=== PATIENT | female | born 1950 | race Caucasian/White ===

== ENCOUNTER → 2016-12-31 | Day surgery (SDC) | payer MEDICARE ==
[~2016-12-31] VITALS: Ht 154.9 cm; Wt 77.1 kg
[~2016-12-31] MED LIST: ACETAMINOPHEN 325 MG TAB PO PRN; ASPI81TA85 PO; ATOR1TAB19 PO; AcetaZOLAMIDE 500 MG ER CAP PO ONE; BENA25TA9 PO; BSS with VANC/TOB/EPI for EYE CASES IR ONE; CYCL5TA PO; CYCLOPENTOLATE 2% OPHTH SOLN OD ONE; DIPH50TA4 PO; HEALON DUET (HEALON 10MG/ML 0.55ML & HEALON ENDOCOAT 30MG/ML 0.85ML) As Ordered ONE; LIDOCAINE 1% SDV 5 ML VIAL As Ordered ONE; LIDOCAINE 4% INJ 5 ML AMP OU ONE; METO-209 PO; MIDAZOLAM INJ 2 MG/2 ML VIAL (J2250) As Ordered ONE; MINO1CAP PO; MOXIFLOXACIN IN BSS 0.25MG/0.25ML INTRACAMERAL INJ (OR EYE ONLY)(J2280) As Ordered ONE; OFLOXACIN 0.3 % (OCUFLOX) OPTH SOL 5ML OD ONE; PHENYLEPHRINE 2.5% OPHTH SOL 2ML OD ONE; POVIDONE-IODINE 5% OPHTH PREP SOL 30ML As Ordered ONE; PROPARACAINE 0.5% OPHTH SOL 15ML XX PRN; TRIAMCINOLONE PRES FR 40 MG/ML 1ML(TRIESENCE)(OR EYE ONLY)(J3300 PER 1MG) As Ordered ONE; TRIMETHOBENZAMIDE 300 MG CAP PO PRN; TROPICAMIDE 1% OPHTH SOLN 2 ML OD ONE; fentaNYL 100 MCG/2 ML INJECTION (J3010) As Ordered ONE
[2016-12-31 13:50] VITALS: BP 162/72
--- NOTE | 2016-12-31 15:02 | RO ---
DATE OF PROCEDURE: 12/31/2016 PREPROCEDURE DIAGNOSIS: Cataract of right eye. POSTPROCEDURE DIAGNOSIS: Cataract of right eye. PROCEDURE: Femtosecond laser and phacoemulsification of the intraocular lens with lens implantation right eye. Intraocular lens power used was PCB00, 19.5 diopter. SURGEON: Jose Siddiqui MD ORTHODONTIST SMALL BUSINESS OWNER: None. ANESTHESIA: Local IV standby. FINDINGS: Cataract of right eye. COMPLICATIONS: None. DESCRIPTION OF PROCEDURE: The patient was brought to the operating room and laid in supine position. A lid speculum was placed, and patient was brought under the femtosecond laser. After the satisfactory placement of the patient interface, primary incision, secondary incision, and arcuate incisions with lens fragmentation was done without any complication per plan. The patients interface was then removed and lid speculum removed. Patient was placed under the microscope. The eye was prepped and draped in a sterile fashion for ophthalmic surgery. Lid speculum was placed. The secondary incision was opened, and EndoCoat was injected into the anterior chamber. The temporal clear corneal incision was then opened and capsulorrhexis removed, followed by hydrodissection. This was followed by phacoemulsification of the lens within the capsular bag. Cortical material was then aspirated, and Healon was injected into the capsular bag. Intraocular lens was then placed. Excess Healon was aspirated. Wound was hydrated. The lid speculum was removed, and patient was returned to the recovery room in stable condition.
== END | disposition home or self-care (01) ==
LOC: M SDC 09:39
PROVIDERS: ATTEND Ophthalmology
DX: H26.9 Unspecified cataract (principal); I25.10 Atherosclerotic heart disease of native coronary artery without angina pectoris; I10 Essential (primary) hypertension; J44.9 Chronic obstructive pulmonary disease, unspecified; E78.2 Mixed hyperlipidemia; K57.92 Diverticulitis of intestine, part unspecified, without perforation or abscess without bleeding; K25.9 Gastric ulcer, unspecified as acute or chronic, without hemorrhage or perforation; M19.90 Unspecified osteoarthritis, unspecified site; M06.9 Rheumatoid arthritis, unspecified; L40.9 Psoriasis, unspecified; Z87.891 Personal history of nicotine dependence; Z79.899 Other long term (current) drug therapy; Z79.82 Long term (current) use of aspirin; Z88.8 Allergy status to other drugs, medicaments and biological substances; Z91.011 Allergy to milk products; Z95.1 Presence of aortocoronary bypass graft
CPT/HCPCS: 66984; J2250; J2280; J3010; J3300

== ENCOUNTER → 2017-06-11 | Outpatient (REF) | payer MEDICARE ==
[~2017-06-11] MED LIST changes: -ACETAMINOPHEN 325 MG TAB PO PRN; -AcetaZOLAMIDE 500 MG ER CAP PO ONE; +BENA25TA10 PO; -BENA25TA9 PO; -BSS with VANC/TOB/EPI for EYE CASES IR ONE; -CYCL5TA PO; +CYCL5TAB PO; -CYCLOPENTOLATE 2% OPHTH SOLN OD ONE; -HEALON DUET (HEALON 10MG/ML 0.55ML & HEALON ENDOCOAT 30MG/ML 0.85ML) As Ordered ONE; -LIDOCAINE 1% SDV 5 ML VIAL As Ordered ONE; -LIDOCAINE 4% INJ 5 ML AMP OU ONE; -METO-209 PO; +METO1TAB33 PO; -MIDAZOLAM INJ 2 MG/2 ML VIAL (J2250) As Ordered ONE; -MOXIFLOXACIN IN BSS 0.25MG/0.25ML INTRACAMERAL INJ (OR EYE ONLY)(J2280) As Ordered ONE; -OFLOXACIN 0.3 % (OCUFLOX) OPTH SOL 5ML OD ONE; -PHENYLEPHRINE 2.5% OPHTH SOL 2ML OD ONE; -POVIDONE-IODINE 5% OPHTH PREP SOL 30ML As Ordered ONE; -PROPARACAINE 0.5% OPHTH SOL 15ML XX PRN; -TRIAMCINOLONE PRES FR 40 MG/ML 1ML(TRIESENCE)(OR EYE ONLY)(J3300 PER 1MG) As Ordered ONE; -TRIMETHOBENZAMIDE 300 MG CAP PO PRN; -TROPICAMIDE 1% OPHTH SOLN 2 ML OD ONE; -fentaNYL 100 MCG/2 ML INJECTION (J3010) As Ordered ONE
[2017-06-11 13:57] LABS: ALBUMIN 3.7 GM/DL (3.2-5.2); ALKALINE PHOSPHATASE 102 U/L (45-117); ALT/SGPT 51 U/L (12-78); ANION GAP 8 MEQ/L (8-16); AST/SGOT 39 U/L (15-37); BILIRUBIN,TOTAL 0.4 MG/DL (0.2-1.0); BLOOD UREA NITROGEN 25 MG/DL (7-18); CALCIUM LEVEL 9.3 MG/DL (8.8-10.2); CARBON DIOXIDE LEVEL 26 MEQ/L (21-32); CHLORIDE LEVEL 111 MEQ/L (98-107); CREATININE FOR GFR 1.24 MG/DL (0.55-1.02); FREE T4 0.94 NG/DL (0.76-1.46); GLOMERULAR FILTRATION RATE 45.9 (>45); GLUCOSE, FASTING 117 MG/DL (80-110); POTASSIUM SERUM 4.7 MEQ/L (3.5-5.1); SODIUM LEVEL 145 MEQ/L (136-145); TOTAL PROTEIN 7.4 GM/DL (6.4-8.2)
[2017-06-11 14:02] LABS: BASO # 0.1 K/mm3 (0.0-0.2); BASO % 0.9 % (0.0-1.0); EOS # 0.3 K/mm3 (0.0-0.50); EOS % 3.7 % (0.0-3.0); LARGE UNSTAINED CELL # 0.2 K/mm3 (0.0-0.4); LARGE UNSTAINED CELL % 2.2 % (0.0-4.0); LYMPH # 1.7 K/mm3 (1.5-4.5); LYMPH % 21.5 % (24.0-44.0); MEAN CORPUSCULAR HEMOGLOBIN 32.7 pg (27.0-33.0); MEAN CORPUSCULAR HGB CONC 33.8 g/dl (32.0-36.5); MEAN CORPUSCULAR VOLUME 96.7 fl (80.0-96.0); MONO # 0.5 K/mm3 (0.0-0.8); MONO % 5.6 % (0.0-5.0); NEUTROPHILS # 5.3 K/mm3 (1.8-7.7); NEUTROPHILS % 66.2 % (36.0-66.0); PLATELET COUNT, AUTOMATED 225 k/mm3 (150-450); RED CELL DISTRIBUTION WIDTH 12.5 % (11.5-14.5)
[2017-06-11 14:38] LABS: FOLATE 10.8 NG/ML; VITAMIN B12 LEVEL 632 PG/ML
[2017-06-11 15:07] LABS: ERYTHROCYTE SEDIMENTATION RATE 30 mm/hr (0-30)
[2017-06-14 08:07] LABS: VITAMIN E LEVEL 12.7 mg/L (6.5-21.5)
== END ==
LOC: M LABNEURO 10:28
PROVIDERS: ATTEND Psychiatry & Neurology Neurology
DX: R41.3 Other amnesia (principal); Z13.1 Encounter for screening for diabetes mellitus; Z11.3 Encounter for screening for infections with a predominantly sexual mode of transmission; Z13.89 Encounter for screening for other disorder; Z95.1 Presence of aortocoronary bypass graft; Z87.11 Personal history of peptic ulcer disease; M19.90 Unspecified osteoarthritis, unspecified site; L40.9 Psoriasis, unspecified; Z72.89 Other problems related to lifestyle

== ENCOUNTER 2018-07-07 08:47 | Day surgery (SDC) | payer MEDICARE ==
[2018-07-07] MEDS: NS 1,000 ML IV (06:00)
[2018-07-07] MEDS ORDERED: LIDOCAINE 2% INJ 100 MG/5 ML SDV (FOR ANES.) As Ordered (10:20)
[2018-07-07] MEDS ORDERED: PROPOFOL 500 MG/50 ML VIAL As Ordered (10:21)
== END 2018-07-07 11:02 | disposition home or self-care (01) ==
LOC: M OPP 08:47
DX: R19.7 Diarrhea, unspecified (principal); D12.0 Benign neoplasm of cecum; K64.0 First degree hemorrhoids; K57.30 Diverticulosis of large intestine without perforation or abscess without bleeding; I25.10 Atherosclerotic heart disease of native coronary artery without angina pectoris; I10 Essential (primary) hypertension; Z95.1 Presence of aortocoronary bypass graft; E78.5 Hyperlipidemia, unspecified; Z87.19 Personal history of other diseases of the digestive system; Z87.11 Personal history of peptic ulcer disease; K21.9 Gastro-esophageal reflux disease without esophagitis; R12 Heartburn; M19.90 Unspecified osteoarthritis, unspecified site; M25.531 Pain in right wrist; M25.532 Pain in left wrist; L40.9 Psoriasis, unspecified; F43.10 Post-traumatic stress disorder, unspecified; Z86.73 Personal history of transient ischemic attack (TIA), and cerebral infarction without residual deficits; Z78.0 Asymptomatic menopausal state; R06.02 Shortness of breath; Z87.891 Personal history of nicotine dependence; Z88.8 Allergy status to other drugs, medicaments and biological substances; Z91.011 Allergy to milk products; Z79.82 Long term (current) use of aspirin; Z79.899 Other long term (current) drug therapy; Z80.3 Family history of malignant neoplasm of breast
CPT/HCPCS: 45380

== ENCOUNTER → 2020-09-22 | Outpatient (CLI) | payer OTHER ==
[~2020-09-22] MED LIST changes: -ASPI81TA85 PO; +ASPI81TA86 PO; +DIPH50CA PO; +DOXY100C PO; +INCR1INH INH; +MINO100C63 PO; -MINO1CAP PO; +POTA10TA67 PO; +VITA-243 PO; +VITATAB11 PO
--- NOTE | 2020-09-27 03:25 | ECWPNPC ---
PATIENT NAME: BRITNEY SOFIA : 1950 GENDER: FEMALE VISIT DATE: 09/22/2020 DISCHARGE DATE: 09/22/20 0000 VISIT LOCKED DATE TIME: PHYSICIAN: SD VEGA RESOURCE: SD VEGA REASON FOR APPOINTMENT 1. NECK PAIN/OCCIPITAL HISTORY OF PRESENT ILLNESS DEPRESSION SCREENING: PHQ-9 LITTLE INTEREST OR PLEASURE IN DOING THINGSMORE THAN HALF THE DAYS FEELING DOWN, DEPRESSED, OR HOPELESSNOT AT ALL TROUBLE FALLING OR STAYING ASLEEP, OR SLEEPING TOO MUCHNEARLY EVERY DAY FEELING TIRED OR HAVING LITTLE ENERGYSEVERAL DAYS POOR APPETITE OR OVEREATING NOT AT ALL FEELING BAD ABOUT YOURSELF-OR THAT YOU ARE A FAILURE OR HAVE LET YOURSELF OR YOUR FAMILY DOWN NOT AT ALL TROUBLE CONCENTRATING ON THINGS, SUCH READING THE NEWSPAPER OR WATCHING TELEVISION SEVERAL DAYS MOVING OR SPEAKING SO SLOWLY THAT OTHER PEOPLE COULD HAVE NOTICED. OR THE OPPOSITE- BEING SO FIDGETY OR RESTLESS THAT YOU HAVE BEEN MOVING AROUND A LOT MORE THAN USUALNOT AT ALL THOUGHTS THAT YOU WOULD BE BETTER OFF , OR OF HURTING YOURSELF IN SOME WAY?NOT AT ALL TOTAL SCORE:7 INTERPRETATIONMILD DEPRESSION PHQ-2 (2015 EDITION) LITTLE INTEREST OR PLEASURE IN DOING THINGS?MORE THAN HALF THE DAYS FEELING DOWN, DEPRESSED, OR HOPELESS?NOT AT ALL TOTAL SCORE2 70-YEAR-OLD FEMALE IN FOR INITIAL PAIN CONSULT. PATIENT HAS COMPLAINTS OF NECK AND OCCIPITAL PAIN THAT HAS BEEN PRESENT FOR THE PAST FEW YEARS. PATIENT STATES SHE DID FIND SOME RELIEF WITH OTC MEDICATION HOWEVER THE MEDICATION SHE WAS UTILIZING IS DIFFICULT TO FIND. SHE RATES HER PAIN CURRENTLY AT A 7 OUT OF 10 AND DESCRIBES IT ACHING. GENERAL: -. FALL RISK SCREENING: SCREENING :NO FALLS REPORTED IN THE LAST YEAR PAIN SCREENING: PATIENT HAS A COMPLAINT OF ACUTE OR CHRONIC PAIN :YES LOCATION OF PAIN:HEAD, NECK INTENSITY OF PAIN (SCALE OF 1 TO 10):7 WHAT DOES YOUR PAIN FEEL LIKE:ACHING DURATION:INTERMITTENT PAIN IS INCREASED BY:ACTIVITIES PAIN IS DECREASED BY:USE OF PAIN MEDICATIONS EXCEDRINE TENSION HEADACHE TREATMENT/MEDICATIONS USED TO MANAGE PAIN:OTC PAIN RELIEVERS LEVEL OF RELIEF FROM PAIN TREATMENTS IN THE PAST:75% PAIN HAS INTERFERED WITH THE FOLLOWING:BATHING/DRESSING, WALKING ABILITY, HOUSEWORK, TRANSPORTATION, TOILETING NURSING NOTE: -. PAIN CENTER INTAKE QUESTIONS: DO YOU HAVE A HISTORY OF MRSA? :NO DO YOU TAKE A BLOOD THINNERS? :NO DO YOU HAVE ANY BLEEDING DISORDERS? :NO PT HAS STOMACH ULCER AND DVT IN RIGHT LEG AND RIGHT LUNG, PCP DOESN'T WANT TO PUT HER ON BLOOD THINNERS BECAUSE OF THE ULCER ANY NEW NUMBNESS OR WEAKNESS IN YOUR LEGS OR ARMS? :NO ANY PACEMAKER,DEFIBRILLATOR, OR DORSAL COLUMN STIMULATOR? :NO DO YOU HAVE ANY RASHES OR OPEN SORES? :NO ARE YOU ALLERGIC TO IV DYE? :NO ARE YOU DIABETIC? :NO ANY NEW PROBLEMS WITH YOUR MEDICATIONS? :NO HAVE YOU RECEIVED A VACCINE IN THE PAST 30 DAYS? :NO DO YOU PLAN TO RECEIVE A VACCINE IN THE NEXT 21 DAYS? :YES IF SO WHAT VACCINE AND WHEN? SECOND SHINGLES END OF OCTOBER 2020 AND MAYBE COVID DO YOU NEED ANY PRESCRIPTION? :NO DO YOU TAKE ANY IMMUNOSUPPRESSIVE MEDICATIONS? :YES METHOTREXATE FOR RA AND PSORIASIS IS THERE A CHANCE YOU COULD BE ? :NO ARE YOU BREAST FEEDING? :NO CURRENT MEDICATIONS TAKING ATORVASTATIN CALCIUM 20 MG TABLET 1 TABLET ORAL ONCE A DAY TAKING METOPROLOL TARTRATE 100 MG TABLET 1 TABLET WITH FOOD ORAL DAILY TAKING POTASSIUM CHLORIDE LISA ER 20 MEQ TABLET EXTENDED RELEASE 2 TABS ORALLY ONCE DAILY TAKING METHOTREXATE SODIUM 2.5 MG TABLET 15MG ORALLY ONCE WEEKLY TAKING PREDNISONE 5 MG TABLET 1-2 TABLET ORALLY BID PRN TAKING EXCEDRIN TENSION HEADACHE 500-65 MG TABLET 2 TABLETS NEEDED ORALLY THREE TIMES A DAY TAKING TRAZODONE HCL 50 MG TABLET 1 TABLET AT BEDTIME NEEDED ORALLY ONCE A DAY TAKING LOPERAMIDE HCL 2 MG CAPSULE 1 CAPSULE NEEDED ORALLY DIRECTED TAKING ACIDOPHILUS - CAPSULE DIRECTED ORALLY NOT-TAKING ANORO ELLIPTA UMECLIDINIUM 62.5 MCG AND VILANTEROL 25 MCG INHALATION POWDER 1 INHALATION ORAL ONCE DAILY NOT-TAKING FOLIC ACID 1 MG TABLET 1 TABLET ORALLY ONCE A DAY NOT-TAKING ASPIRIN 81 81 MG TABLET DELAYED RELEASE 1 TABLET ORALLY ONCE A DAY NOT-TAKING HYDROCODONE-ACETAMINOPHEN 5-325 MG TABLET (SCHEDULE II DRUG) ORAL EVERY 6 HRS, NOTES: TOOK LAST DOSE 10/28/2019 NOT-TAKING DICLOFENAC SODIUM 1 % GEL 1 APPLICATION TRANSDERMAL TWICE A DAY MEDICATION LIST REVIEWED AND RECONCILED WITH THE PATIENT PAST MEDICAL HISTORY HYPERTENSION HIGH CHOLESTEROL COPD STROKE DIVERTICULITIS DVT IN LUNG AND RIGHT LEG DUODINAL BLEEDING ULCERS RHEUMATOID ARTHRITIS ABDOMINAL PAIN BRONCHITIS- CHRONIC CAD- S/P CABG 12 YEARS AGO CERVICAL STENOSIS OF THE SPINE CVA DIARRHEA GERD HEART DISEASE HIDRADENTITIS SUPPURATIVA HYPERLIPIDEMIA NAUSEA & VOMITING UMBILICAL HERNIA RA PSORIASIS ALLERGIES FENOFIBRATE TRAMADOL HCL AMBIEN LUNESTA LACTOSE SURGICAL HISTORY QUADRUPLE CARDIAC BYPASS/CABG 2007 DIVERTICULITIS & COLON RESECTION- SIGMOID RESECTION/RECTOPEXY 2005 CHOLECYSTECTOMY 2012 TUBAL LIGATION 1987 TONSILLECTOMY & ADENOIDECTOMY 1958 LEFT BROKEN WRIST REPAIR 1978 RIGHT BROKEN WRIST REPAIR 2010 CATARACT / LENS REPLACEMENT 2016 AORTIC STENT 2019 TUBAL LIGATION 1979 FAMILY HISTORY FATHER: MOTHER: , BREAST CANCER 1 SISTER(S) . 2 SON(S) , 2 DAUGHTER(S) . OLDEST DAUGHTER- CHRONIC PAIN. SOCIAL HISTORY GENERAL: TOBACCO USE ARE YOU A:FORMER SMOKER HOW LONG HAS IT BEEN SINCE YOU LAST SMOKED?1-5 YEARS 02/2014 LATEX QUESTIONNAIRE LATEX ALLERGY : HAVE YOU EVER DEVELOPED ANY TYPE OF REACTION AFTER HANDLING LATEX PRODUCTS SUCH RUBBER GLOVES, CONDOMS, DIAPHRAGMS, BALLOONS, SOCKS, OR UNDERWEAR?NO LATEX ALLERGY : HAVE YOU EVER DEVELOPED ANY TYPE OF REACTION DURING OR AFTER DENTAL APPOINTMENT, VAGINAL/RECTAL EXAMINATION, SURGICAL PROCEDURE, OR ANY OTHER EXPOSURE?NO DATE ASKED : 08/10/2020 LATEX RISK : HAVE YOU EVER HAD ANY DIFFICULTY BREATHING OR HIVES AFTER EATING OR HANDLING ANY FRUITS, OR VEGETABLES; SUCH KIWI, BANANAS, STONE FRUITS, OR CHESTNUTSNO LATEX RISK : DO YOU HAVE A PREVIOUS PERSONAL HISTORY OF MORE THAN NINE SURGERIES, SPINA BIFIDA, OR REPEATED CATHERIZATIONS? NO LATEX RISK : ARE YOU FREQUENTLY EXPOSED TO LATEX PRODUCTS IN YOUR OCCUPATION?NO ALCOHOL SCREENING DID YOU HAVE A DRINK CONTAINING ALCOHOL IN THE PAST YEAR?YES HOW OFTEN DID YOU HAVE SIX OR MORE DRINKS ON ONE OCCASION IN THE PAST YEAR?NEVER (0 POINTS) HOW MANY DRINKS DID YOU HAVE ON A TYPICAL DAY WHEN YOU WERE DRINKING IN THE PAST YEAR?1 OR 2 (0 POINTS) HOW OFTEN DID YOU HAVE A DRINK CONTAINING ALCOHOL IN THE PAST YEAR?MONTHLY OR LESS (1 POINT) POINTS1 INTERPRETATIONNEGATIVE RECREATIONAL DRUG USE DRUG USE?NO CAFFEINE CAFFEINE USE?YES HOW OFTEN AND HOW MUCH? LESS THAN 1 DAILY LANGUAGE LANGUAGES SPOKEN:BULGARIAN LEARNING BARRIERS / SPECIAL NEEDS BARRIERS TO LEARNING?NO HEARING IMPAIRED?NO VISION IMPAIRED?YES COGNITIVELY IMPAIRED?NO :CORRECTIVE LENSES READINESS TO LEARN?YES LEARNING PREFERENCES?NO LEARNING CAPABILITIES PRESENT?YES EMOTIONAL BARRIERS?NO SPECIAL DEVICES?NO PAIN CLINIC PFS, CLERGY, PUBLIC HEALTH REFERRALS HAS THE PATIENT BEEN EDUCATED REGARDING HIS/HER PLAN OF CARE?YES HAS THE PATIENT BEEN EDUCATED REGARDING PAIN, THE RISK FOR PAIN, THE IMPORTANCE OF EFFECTIVE PAIN MANAGEMENT, AND THE PAIN ASSESSMENT PROCESS?YES ADVANCE DIRECTIVE ADVANCE DIRECTIVE DISCUSSED WITH PATIENT:YES ADELA VEGAS [phone] #1 HOSPITALIZATION/MAJOR DIAGNOSTIC PROCEDURE SURGERIES GASTROENTERITIS 09/2020 REVIEW OF SYSTEMS CONSTITUTIONAL: ANY RECENT FEVER NO . CHILLS NO . WEIGHT CHANGE OF UNKNOWN REASONS NO . MUSCULOSKELETAL: ANY UNUSUAL JOINT PAIN OR SWELLING NOT MENTIONED NO . SYSTEMIC LUPUS NO . ANY NEUROMUSCULAR DISORDER NOT MENTIONED NO . LYME DISEASE NO . GASTROENTEROLOGY: ANY NEW CHANGE IN BOWEL CONTROL? NO . HISTORY OF LIVER DISORDER NOT MENTIONED NO . HISTORY OF UNUSUAL ABDOMINAL PAIN OR CRAMPING NOT MENTIONED NO . NO CONSTIPATION. GENITOURINARY: ANY NEW CHANGE IN BLADDER CONTROL? NO . ANY RENAL/KIDNEY CONDITON NOT MENTIONED NO . NEUROLOGY: HISTORY OF TBI NOT MENTIONED NO . OTHER NEW NUMBNESS OR PAIN PATTERNS NOT MENTIONED NO . NEW ONSET DIZZINESS OR NEUROLOGICAL CHANGES NOT MENTIONED NO . HISTORY OF SEVERE HEADACHES NOT MENTIONED NO . HISTORY OF STROKE OR NEUROLOGICAL DISORDER NOT MENTIONED NO . CARDIOLOGY: HEART SURGERY NO . CONGESTIVE HEART FAILURE/FLUID OVERLOAD NOT MENTIONED NO . HISTORY OF CHEST PAIN,IRREGULAR HEART BEAT NOT MENTIONED NO . RESPIRATORY: SHORTNESS OF BREATH ON EXERTION, WHEEZES, UNUSUAL COUGH NOT MENTIONED NO . ENDOCRINOLOGY: ADRENAL GLAND OR THYROID DISORDERS NOT MENTIONED NO . UNUSUAL URINATION, DIZZINESS OR LETHARGY NOT MENTIONED NO . VITAL SIGNS WT 156.8 LBS, HT 62 IN, BMI 28.68 INDEX, BP 181/83 MM HG, HR 65 /MIN, RR 18 /MIN, TEMP 98.5 F, OXYGEN SAT % 93%, SAFE IN ENV? (Y/N) Y, NA INITIALS AW 1310, REVIEWED BY: EM. EXAMINATION GENERAL EXAMINATION: GENERALNO ACUTE DISTRESS, WELL NOURISHED AND HYDRATED. PSYCHAPPROPRIATE MOOD AND AFFECT . NECK:POINT TENDER ALONG CERVICAL SPINE, SURROUNDING SKIN SHOWS NO ERYTHEMA, ECCHYMOSIS, INCREASED WARMTH, AND/OR SKIN ERUPTIONS NOTED. . LUNGS:CLEAR TO AUSCULTATION BILATERALLY, NO WHEEZES, RHONCHI, RALES. HEART:NO MURMURS, REGULAR RATE AND RHYTHM. ASSESSMENTS HEADACHE - R51 (PRIMARY) CERVICALGIA - M54.2 TREATMENT HEADACHE START FIORICET CAPSULE, 50-300-40 MG, 1 CAPSULE NEEDED, ORALLY, EVERY 8 HRS PRN PAIN, 30 DAYS, 90 NOTES: 70-YEAR-OLD FEMALE IN FOR INITIAL PAIN CONSULT. GIVEN PRESENTING SYMPTOMS RECOMMEND FIORICET WITH FOLLOW-UP IN ONE MONTH TO DETERMINE EFFICACY OF TREATMENT. DISCUSSED POTENTIAL PROCEDURES WITH PATIENT AND SHE DECLINES THEM AT THIS TIME STATING SHE DOES NOT WISH TO RECEIVE INJECTIONS. PATIENT HAS EXPRESSED UNDERSTANDING OF WAS IN AGREEMENT WITH TREATMENT PLAN. GIVEN TIME TO ASK QUESTIONS AND EXPECT CONCERNS. OTHERS NOTES: PRE NPC VISIT PHONE CALL ATTEMPTED, MESSAGE LEFT TO RETURN CALL- INFORMATION ENTERED FROM REFERRAL- Tre NARANJO RN 09/21/2020 10:30,ACETAMINOPHEN, BUTALBITAL, AND CAFFEINE MATERIAL WAS PRINTED. PROCEDURE CODES FA211 ESTABILISHED PATIENT [facility] CHARGE DISPOSITION & COMMUNICATION FOLLOW UP 4 WEEKS (REASON: HEADACHE, CERVICALGIA ) ELECTRONICALLY SIGNED BY MIRYAM WOODS ON 09/26/2020 AT 01:55 PM EST DISCLAIMER : THIS IS A VISIT SUMMARY EXTRACTED FROM THE [employer] CHART. IT IS NOT A COPY OF THE [employer] PROGRESS NOTE. FAHAD
== END ==
LOC: M PAIN 13:00
PROVIDERS: ATTEND Family Medicine
DX: R51.9 Headache, unspecified (principal); M54.2 Cervicalgia; J44.9 Chronic obstructive pulmonary disease, unspecified; Z86.718 Personal history of other venous thrombosis and embolism; Z86.73 Personal history of transient ischemic attack (TIA), and cerebral infarction without residual deficits; Z87.891 Personal history of nicotine dependence; Z88.5 Allergy status to narcotic agent; Z88.8 Allergy status to other drugs, medicaments and biological substances; Z91.011 Allergy to milk products; Z79.899 Other long term (current) drug therapy

== ENCOUNTER → 2020-10-26 | Outpatient (CLI) | payer MEDICARE ==
--- NOTE | 2020-10-28 02:44 | ECWPNPC ---
PATIENT NAME: BRITNEY SOFIA : 1950 GENDER: FEMALE VISIT DATE: 10/26/2020 DISCHARGE DATE: 10/26/20 1229 VISIT LOCKED DATE TIME: PHYSICIAN: SD VEGA RESOURCE: SD VEGA REASON FOR APPOINTMENT 1. HEADACHE, CERVICALGIA HISTORY OF PRESENT ILLNESS GENERAL: -70-YEAR-OLD FEMALE IN FOR CHRONIC PAIN FOLLOW-UP. AT LAST CLINIC VISIT PATIENT WAS PUT ON FIORICET AND SHE ADMITS TODAY THAT THIS HAS BEEN BENEFICIAL HOWEVER SHE DOES EXPERIENCE INCREASED PAIN BETWEEN DOSES. SHE RATES HER PAIN CURRENTLY AT A 6 OUT OF 10 AND DESCRIBES IT THROBBING. FALL RISK SCREENING: SCREENING :NO FALLS REPORTED IN THE LAST YEAR PAIN SCREENING: PATIENT HAS A COMPLAINT OF ACUTE OR CHRONIC PAIN :YES LOCATION OF PAIN:HEAD, NECK INTENSITY OF PAIN (SCALE OF 1 TO 10):6 WHAT DOES YOUR PAIN FEEL LIKE:THROBBING DURATION:INTERMITTENT PAIN IS INCREASED BY:ACTIVITIES WHEN TRYIN TO WATCH TV PAIN IS DECREASED BY:USE OF PAIN MEDICATIONS NURSING NOTE: -. PAIN CENTER INTAKE QUESTIONS: DO YOU HAVE A HISTORY OF MRSA? :NO DO YOU TAKE A BLOOD THINNERS? :NO DO YOU HAVE ANY BLEEDING DISORDERS? :NO PT HAS STOMACH ULCER AND DVT IN RIGHT LEG AND RIGHT LUNG, PCP DOESN'T WANT TO PUT HER ON BLOOD THINNERS BECAUSE OF THE ULCER ANY NEW NUMBNESS OR WEAKNESS IN YOUR LEGS OR ARMS? :NO ANY PACEMAKER,DEFIBRILLATOR, OR DORSAL COLUMN STIMULATOR? :NO DO YOU HAVE ANY RASHES OR OPEN SORES? :NO ARE YOU ALLERGIC TO IV DYE? :NO ARE YOU DIABETIC? :NO ANY NEW PROBLEMS WITH YOUR MEDICATIONS? :NO HAVE YOU RECEIVED A VACCINE IN THE PAST 30 DAYS? :YES IF SO WHAT VACCINE AND WHEN? 10/25/20 2ND SHOTSHINGLES DO YOU PLAN TO RECEIVE A VACCINE IN THE NEXT 21 DAYS? :NO DO YOU NEED ANY PRESCRIPTION? :NO DO YOU TAKE ANY IMMUNOSUPPRESSIVE MEDICATIONS? :YES METHOTREXATE FOR RA AND PSORIASIS IS THERE A CHANCE YOU COULD BE ? :NO ARE YOU BREAST FEEDING? :NO CURRENT MEDICATIONS TAKING ATORVASTATIN CALCIUM 20 MG TABLET 1 TABLET ORAL ONCE A DAY TAKING METOPROLOL TARTRATE 100 MG TABLET 1 TABLET WITH FOOD ORAL DAILY TAKING POTASSIUM CHLORIDE LISA ER 20 MEQ TABLET EXTENDED RELEASE 2 TABS ORALLY ONCE DAILY TAKING PREDNISONE 5 MG TABLET 1-2 TABLET ORALLY BID PRN TAKING ACIDOPHILUS - CAPSULE DIRECTED ORALLY TAKING FIORICET 50-300-40 MG CAPSULE 1 CAPSULE NEEDED ORALLY EVERY 8 HRS PRN PAIN TAKING FOLIC ACID 1 MG TABLET 2 TABLET ORALLY ONCE A DAY TAKING METHOTREXATE SODIUM 2.5 MG TABLET 17.5 MG ORALLY ONCE WEEKLY NOT-TAKING EXCEDRIN TENSION HEADACHE 500-65 MG TABLET 2 TABLETS NEEDED ORALLY THREE TIMES A DAY NOT-TAKING TRAZODONE HCL 50 MG TABLET 1 TABLET AT BEDTIME NEEDED ORALLY ONCE A DAY NOT-TAKING LOPERAMIDE HCL 2 MG CAPSULE 1 CAPSULE NEEDED ORALLY DIRECTED NOT-TAKING ANORO ELLIPTA UMECLIDINIUM 62.5 MCG AND VILANTEROL 25 MCG INHALATION POWDER 1 INHALATION ORAL ONCE DAILY NOT-TAKING ASPIRIN 81 81 MG TABLET DELAYED RELEASE 1 TABLET ORALLY ONCE A DAY NOT-TAKING HYDROCODONE-ACETAMINOPHEN 5-325 MG TABLET (SCHEDULE II DRUG) ORAL EVERY 6 HRS, NOTES: TOOK LAST DOSE 10/28/2019 NOT-TAKING DICLOFENAC SODIUM 1 % GEL 1 APPLICATION TRANSDERMAL TWICE A DAY MEDICATION LIST REVIEWED AND RECONCILED WITH THE PATIENT ALLERGIES NO[ALLERGIES VERIFIED] SOCIAL HISTORY GENERAL: TOBACCO USE ARE YOU A:FORMER SMOKER HOW LONG HAS IT BEEN SINCE YOU LAST SMOKED?1-5 YEARS 02/2014 LATEX QUESTIONNAIRE LATEX ALLERGY : HAVE YOU EVER DEVELOPED ANY TYPE OF REACTION AFTER HANDLING LATEX PRODUCTS SUCH RUBBER GLOVES, CONDOMS, DIAPHRAGMS, BALLOONS, SOCKS, OR UNDERWEAR?NO LATEX ALLERGY : HAVE YOU EVER DEVELOPED ANY TYPE OF REACTION DURING OR AFTER DENTAL APPOINTMENT, VAGINAL/RECTAL EXAMINATION, SURGICAL PROCEDURE, OR ANY OTHER EXPOSURE?NO LATEX RISK : HAVE YOU EVER HAD ANY DIFFICULTY BREATHING OR HIVES AFTER EATING OR HANDLING ANY FRUITS, OR VEGETABLES; SUCH KIWI, BANANAS, STONE FRUITS, OR CHESTNUTSNO LATEX RISK : DO YOU HAVE A PREVIOUS PERSONAL HISTORY OF MORE THAN NINE SURGERIES, SPINA BIFIDA, OR REPEATED CATHERIZATIONS? NO LATEX RISK : ARE YOU FREQUENTLY EXPOSED TO LATEX PRODUCTS IN YOUR OCCUPATION?NO DATE ASKED : 10/26/2020 ALCOHOL SCREENING DID YOU HAVE A DRINK CONTAINING ALCOHOL IN THE PAST YEAR?YES HOW OFTEN DID YOU HAVE SIX OR MORE DRINKS ON ONE OCCASION IN THE PAST YEAR?NEVER (0 POINTS) HOW MANY DRINKS DID YOU HAVE ON A TYPICAL DAY WHEN YOU WERE DRINKING IN THE PAST YEAR?1 OR 2 (0 POINTS) HOW OFTEN DID YOU HAVE A DRINK CONTAINING ALCOHOL IN THE PAST YEAR?MONTHLY OR LESS (1 POINT) POINTS1 INTERPRETATIONNEGATIVE RECREATIONAL DRUG USE DRUG USE?NO CAFFEINE CAFFEINE USE?YES HOW OFTEN AND HOW MUCH? LESS THAN 1 DAILY LANGUAGE LANGUAGES SPOKEN:FAROESE LEARNING BARRIERS / SPECIAL NEEDS CHANGE FROM LAST VISIT?NO BARRIERS TO LEARNING?NO HEARING IMPAIRED?NO VISION IMPAIRED?YES :CORRECTIVE LENSES COGNITIVELY IMPAIRED?NO READINESS TO LEARN?YES LEARNING PREFERENCES?NO LEARNING CAPABILITIES PRESENT?YES EMOTIONAL BARRIERS?NO SPECIAL DEVICES?NO VEGETABLE HARVEST WORKER NEEDED?NO - HAS THE PATIENT BEEN EDUCATED REGARDING HIS/HER PLAN OF CARE?YES HAS THE PATIENT BEEN EDUCATED REGARDING PAIN, THE RISK FOR PAIN, THE IMPORTANCE OF EFFECTIVE PAIN MANAGEMENT, AND THE PAIN ASSESSMENT PROCESS?YES ADVANCE DIRECTIVE ADVANCE DIRECTIVE DISCUSSED WITH PATIENT:YES ADELA VEGAS [phone] #1 REVIEW OF SYSTEMS CONSTITUTIONAL: ANY RECENT FEVER NO . CHILLS NO . WEIGHT CHANGE OF UNKNOWN REASONS NO . GASTROENTEROLOGY: NEW UNEXPLAINABLE CHANGES IN BOWEL CONTROL NO . CONSTIPATION NO . GENITOURINARY: ANY NEW CHANGE IN BLADDER CONTROL? NO . NEUROLOGY: NEW ONSET DIZZINESS OR NEUROLOGICAL CHANGES NOT MENTIONED NO . NEW NUMBNESS OR PAIN PATTERNS NOT MENTIONED AND PERTINENT TO TODAY'S VISIT NO . CARDIOLOGY: NEW CHEST PRESSURE NO . NEW CHEST PAIN NO . RESPIRATORY: UNEXPLAINABLE COUGH NO . NEW SHORTNESS OF BREATH NO . VITAL SIGNS WT 162 LBS, HT 62 IN, BMI 29.63 INDEX, BP 170/75 MM HG, HR 61 /MIN, RR 18 /MIN, TEMP 97.1 F, OXYGEN SAT % 95, SAFE IN ENV? (Y/N) YEST.DILAN ALEXANDRE ABOUT BP. EXAMINATION GENERAL EXAMINATION: GENERALNO ACUTE DISTRESS, WELL NOURISHED AND HYDRATED. PSYCHAPPROPRIATE MOOD AND AFFECT . LUNGS:CLEAR TO AUSCULTATION BILATERALLY, NO WHEEZES, RHONCHI, RALES. HEART:NO MURMURS, REGULAR RATE AND RHYTHM. ASSESSMENTS CERVICALGIA - M54.2 TREATMENT CERVICALGIA NOTES: 70-YEAR-OLD FEMALE IN FOR CHRONIC PAIN FOLLOW-UP. GIVEN PRESENTING SYMPTOMS RECOMMEND INCREASING FREQUENCY OF FIORICET WITH FOLLOW-UP IN 2 MONTHS. PATIENT HAS EXPRESSED UNDERSTANDING OF AND WAS IN AGREEMENT WITH TREATMENT PLAN. GIVEN TIME TO ASK QUESTIONS AND EXPRESS CONCERNS. OTHERS REFILL FIORICET CAPSULE, 50-300-40 MG, 1 CAPSULE NEEDED, ORALLY, EVERY 6 HRS PRN PAIN, 30 DAYS, 120 PROCEDURE CODES FA211 ESTABILISHED PATIENT [facility] CHARGE DISPOSITION & COMMUNICATION FOLLOW UP 2 MONTHS (REASON: HEADACHES) ELECTRONICALLY SIGNED BY MIRYAM WOODS ON 10/27/2020 AT 04:06 PM EST DISCLAIMER : THIS IS A VISIT SUMMARY EXTRACTED FROM THE [employer] CHART. IT IS NOT A COPY OF THE [employer] PROGRESS NOTE. FAHAD
== END ==
LOC: M PAIN 11:30
PROVIDERS: ATTEND Family Medicine
DX: M54.2 Cervicalgia (principal); Z79.52 Long term (current) use of systemic steroids; Z79.899 Other long term (current) drug therapy; Z87.891 Personal history of nicotine dependence

== ENCOUNTER → 2020-11-19 | Outpatient (CLI) | payer MEDICARE | LOC: M LABSMTC 10:25 | PROVIDERS: ATTEND Anesthesiology | DX: Z01.812 Encounter for preprocedural laboratory examination (principal); Z20.822 Contact with and (suspected) exposure to COVID-19 ==

== ENCOUNTER 2020-11-24 13:24 | Day surgery (SDC) | payer MEDICARE ==
[~2020-11-24] VITALS: Ht 160 cm; Wt 73.5 kg
[~2020-11-24 13:24] MED LIST changes: +ASPI81TA26 PO; +BUTA1CAP PO; +FOLI1TAB11 PO; +METH2.5T48 PO; +METO100T5 PO; +NS 1,000 ML IV ONE; +TRAZ-252 PO
--- OUTSIDE RECORDS SUMMARY | 2020-11-24 13:31 | CCD ---
Author Author [facility] Organization [facility] Address Unknown Phone Unavailable Care Team Providers Care Turbine Technician Name Role Phone Royer Leon Unavailable PROBLEMS Type Condition ICD9-CM Code [id number] Code Onset Dates Condition S tatus SNOMED Code Notes Problem Rheumatoid arthritis involvi ng multiple sites with positive rheumatoid factor M05.79 Active 386808055 ALLERGIES Allergen (clinical drug ingredient) Drug/Non Drug Allergy do cumented on EMR Reaction Allergy Type Onset Date Status Lactose([facility] Code:[address]-27) Unknown Drug Allergy Active tramadol Tramadol HCl([facility] Code:[address]-91) Unknown Drug Aller gy Active fenofibrate Fenofibrate([facility] Code:[address]-97) Unknown Drug Aller gy Active zolpidem Ambien([facility] Code:[address]-34) Unknown Drug Allergy Active eszopiclone Lunesta([facility] Code:[address]-28) Unknown Drug Allergy Active ENCOUNTERS from 1950 to 2020-09-26 Encounter Location Date Provider Diagnosis [facility] [address] [place] [id number] Sep, Royer Leon Headache R51 IMMUNIZATIONS No Information SOCIAL HISTORY Tobacco Use: Social History Observation Description Date Details (start date - stop date) Former Smoker Sex Assigned At : Social History Observation Description Sex Assigned At Unknown Language: Question Answer Notes Languages spoken: Bahraini Alcohol Screening: Question Answer Notes Did you have a drink containing alcohol in the past year? Ye s Points 1 Interpretation Negative How often did you have six or more drinks on one occas ion in the past year? Never (0 points) How many drinks did you have on a typica l day when you were drinking in the past year? 1 or 2 (0 points) How often did you have a drink containing alcohol in t he past year? Monthly or less (1 point) Tobacco Use: Question Answer Notes Are you a: former smoker How long has it been since you last smoked? 1-5 years 02/2014 REASON FOR REFERRAL No Information VITAL SIGNS No information MEDICATIONS Medication SIG (Take, Route, Frequency, Duration) Notes Start Da te End Date Status Fioricet 50-300-40 MG 1 capsule as needed Orally e very 8 hrs PRN pain for 30 days Sep, Active Atorvastatin Calcium 20 MG 1 tablet Oral Once a day Active Excedrin Tension Headache 500-65 MG 2 tablets as neede d Orally Three times a day Active Acidophilus - as directed Orally Act yonas Anoro Ellipta umeclidinium 62.5 mcg and vilanterol 25 mcg 1 inhalation oral once daily Not-Taking Loperamide HCl 2 MG 1 capsule as needed Orally as directed Active Metoprolol Tartrate 100 MG 1 tablet with food Oral Daily Active Aspirin 81 81 MG 1 tablet Orally Once a day for 30 day(s) Not-Taking Methotrexate Sodium 2.5 MG 15MG Orally Once weekly Oct, Active Potassium Chloride Eleonora ER 20 MEQ 2 TABS Orally once daily Active Folic Acid 1 MG 1 tablet Orally Once a day for 30 day(s) 2 Oct, Not-Taking Hydrocodone-Acetaminophen 5-325 MG (Schedule II Drug) Oral every 6 hr s Not-Taking TraZODone HCl 50 MG 1 tablet at bedtime as neede d Orally Once a day for 30 day(s) Active PredniSONE 5 MG 1-2 tablet Orally bid prn for 30 Active Diclofenac Sodium 1 % 1 application Transdermal Twice a day Not-Taking PROCEDURES No Information RESULTS No Results REASON FOR VISIT FIORICET MEDICAL (GENERAL) HISTORY Type Description Date Medical History Hypertension Medical History High Cholesterol Medical History COPD Medical History Stroke Medical History Diverticulitis Medical History DVT in lung and right leg Medical History duodinal bleeding ulcers Medical History rheumatoid arthritis Medical History ABDOMINAL PAIN Medical History BRONCHITIS- CHRONIC Medical History CAD- S/P CABG 12 YEARS AGO Medical History CERVICAL STENOSIS OF THE SPINE Medical History CVA Medical History DIARRHEA Medical History GERD Medical History HEART DISEASE Medical History HIDRADENTITIS SUPPURATIVA Medical History HYPERLIPIDEMIA Medical History NAUSEA & VOMITING Medical History UMBILICAL HERNIA Medical History RA Medical History psoriasis Surgical History Quadruple Cardiac Bypass/CABG 2006 Surgical History Diverticulitis & Colon Resection- SIGMOI D RESECTION/RECTOPEXY 2004 Surgical History Cholecystectomy 2012 Surgical History Tubal Ligation 1986 Surgical History Tonsillectomy & ADENOIDECTOMY 1958 Surgical History Left Broken Wrist Repair 1978 Surgical History Right Broken Wrist Repair 2010 Surgical History cataract / lens replacement 2016 Surgical History aortic stent 2019 Surgical History TUBAL LIGATION 1979 Hospitalization History surgeries Hospitalization History gastroenteritis 09/2020 Goals Section No Information Health Concerns No Information MEDICAL EQUIPMENT No Information MENTAL STATUS No Information FUNCTIONAL STATUS No Information ASSESSMENTS Encounter Date Diagnosis Assessment Notes Treatment Notes Treatm ent Clinical Notes Sep, Headache (ICD-10 - R51) PLAN OF TREATMENT Medication Medication Name Sig Start Date Stop Date Fioricet 50-300-40 MG 1 capsule as needed Orally e very 8 hrs PRN pain for 30 days Sep, Insurance Providers Payer Name Payer Address Payer Phone Insured Name Patient Relati onship to Insured Coverage Start Date Coverage End Date [employer] [id number] [place] [phone] BRITNEY SOFIA self
--- OUTSIDE RECORDS SUMMARY | 2020-11-24 13:31 | CCD ---
Author Author [facility] Organization [facility] Address Unknown Phone Unavailable Care Team Providers Care Mrb Engineer Name Role Phone Ashley Mccarty Unavailable PROBLEMS Type Condition ICD9-CM Code [id number] Code Onset Dates Condition S tatus SNOMED Code Notes Problem Rheumatoid arthritis involvi ng multiple sites with positive rheumatoid factor M05.79 Active [id number] ALLERGIES Allergen (clinical drug ingredient) Drug/Non Drug Allergy do cumented on EMR Reaction Allergy Type Onset Date Status Lactose([facility] Code:[address]-19) Unknown Drug Allergy Active tramadol Tramadol HCl([facility] Code:[address]-22) Unknown Drug Aller gy Active fenofibrate Fenofibrate([facility] Code:[address]-91) Unknown Drug Aller gy Active zolpidem Ambien([facility] Code:[address]-84) Unknown Drug Allergy Active eszopiclone Lunesta([facility] Code:[address]-61) Unknown Drug Allergy Active ENCOUNTERS from 1950 to 2020-10-11 Encounter Location Date Provider Diagnosis [facility] [address] [place] [address] Oct, Ashley Mccarty Rheumatoid arthritis involving multiple sites with positive rheumatoid factor M05.79 IMMUNIZATIONS No Information SOCIAL HISTORY Tobacco Use: Social History Observation Description Date Details (start date - stop date) Former Smoker Sex Assigned At : Social History Observation Description Sex Assigned At Unknown Language: Question Answer Notes Languages spoken: German Alcohol Screening: Question Answer Notes Did you [...] 1 tablet Oral Once a day Active Anoro Ellipta umeclidinium 62.5 mcg and vilanterol 25 mcg 1 inhalation oral once daily Not-Taking Loperamide HCl 2 MG 1 capsule as needed Orally as directed Active Acidophilus - as directed Orally Act yonas TraZODone HCl 50 MG 1 tablet at bedtime as neede d Orally Once a day for 30 day(s) Active Metoprolol Tartrate 100 MG 1 tablet with food Oral Daily Active Aspirin 81 81 MG 1 tablet Orally Once a day for 30 day(s) Not-Taking Excedrin Tension Headache 500-65 MG 2 tablets as neede d Orally Three times a day Active Potassium Chloride Eleonora ER 20 MEQ 2 TABS Orally once daily Active Folic Acid 1 MG 1 tablet Orally Once a day for 30 day(s) 2 Oct, Not-Taking Hydrocodone-Acetaminophen 5-325 MG (Schedule II Drug) Oral every 6 hr s Not-Taking Methotrexate Sodium 2.5 MG 15MG Orally Once weekly Oct, Active PredniSONE 5 MG 1-2 tablet Orally bid prn for 30 Active Diclofenac Sodium 1 % 1 application Transdermal Twice a day Not-Taking PROCEDURES No Information RESULTS No Results REASON FOR VISIT Methotrexate refill MEDICAL (GENERAL) HISTORY Type Description Date Medical [...] Notes Treatment Notes Treatm ent Clinical Notes Oct, Rheumatoid arthritis involvi ng multiple sites with positive rheumatoid factor (ICD-10 - M05.79) PLAN OF TREATMENT Medication Medication Name Sig Start Date Stop Date Fioricet 50-300-40 MG 1 capsule as needed Orally e very 8 hrs PRN pain for 30 days Sep, Methotrexate Sodium 2.5 MG 15MG Orally Once weekly Oct, Treatment Notes Test Name Order Date ERYTHROCYTE SEDIMENTATION RATE 2020-10-11 Comprehensive Metabolic Profile (CMP) 2020-10-11 CBC with Differential 2020-10-11 C REACTIVE PROTEIN QUANTITATIV (At [facility]) 2020-10-11 Next Appt Details Provider Name:Ashley Mccarty, 2020-10 11:15:00 AM, [address] [place] [address], [id number], Provider Name:Royer Leon, 2020-10-26 11:30:00 AM, [address] [place] [address], [phone], Insurance Providers Payer Name Payer Address Payer Phone Insured Name Patient Relati onship to Insured Coverage Start Date Coverage End Date [employer] [id number] [place] [phone] BRITNEY SOFIA self
--- OUTSIDE RECORDS SUMMARY | 2020-11-24 13:31 | CCD ---
Author Author [facility] Organization [facility] Address Unknown Phone Unavailable Care Team Providers Care Soaker Hides Name Role Phone Royer Leon Unavailable PROBLEMS Type Condition ICD9-CM Code CUH60-NA Code Onset Dates Condition S tatus SNOMED Code Notes Problem Rheumatoid arthritis involvi ng multiple sites with positive rheumatoid factor M05.79 Active [id number] ALLERGIES Allergen (clinical drug ingredient) Drug/Non Drug Allergy do cumented on EMR Reaction Allergy Type Onset Date Status Lactose([facility] Code:[address]-69) Unknown Drug Allergy Active tramadol Tramadol HCl([facility] Code:[address]-68) Unknown Drug Aller gy Active fenofibrate Fenofibrate([facility] Code:[address]-42) Unknown Drug Aller gy Active zolpidem Ambien([facility] Code:[address]-52) Unknown Drug Allergy Active eszopiclone Lunesta([facility] Code:[address]-58) Unknown Drug Allergy Active ENCOUNTERS from 1950 to 2020-10-29 Encounter Location Date Provider Diagnosis [facility] [address] [place] [address] Oct, Royer Leon Cervicalgia M54.2 IMMUNIZATIONS No Information SOCIAL HISTORY Tobacco Use: Social History Observation Description Date Details (start date - stop date) Former Smoker Sex Assigned At : Social History Observation Description Sex Assigned At Unknown Language: Question Answer Notes Languages spoken: Romansh Alcohol Screening: Question Answer Notes Did you [...] REASON FOR REFERRAL No Information VITAL SIGNS Weight 162 lbs Oct, Height 62 in Oct, BMI 29.63 kg/m2 Oct, Heart Rate 61 /min Oct, Respiratory Rate 18 /min Oct, Temperature 97.1 degrees Fahrenheit Oct, Oximetry 95 Oct, Blood pressure systolic 170 mm Hg Oct, Blood pressure diastolic 75 mm Hg Oct, MEDICATIONS Medication SIG (Take, Route, Frequency, Duration) Notes Start Da te End Date Status Atorvastatin Calcium 20 MG 1 tablet Oral Once a day Active Anoro Ellipta umeclidinium 62.5 mcg and vilanterol 25 mcg 1 inhalation oral once daily Not-Taking Excedrin Tension Headache 500-65 MG 2 tablets as neede d Orally Three times a day Not-Taking Potassium Chloride Eleonora ER 20 MEQ 2 TABS Orally once daily Active Metoprolol Tartrate 100 MG 1 tablet with food Oral Daily Active PredniSONE 5 MG 1-2 tablet Orally bid prn for 30 Active Fioricet 50-300-40 MG 1 capsule as needed Orally e very 6 hrs PRN pain for 30 days Sep, Active Loperamide HCl 2 MG 1 capsule as needed Orally as directed Not-Taking Methotrexate Sodium 2.5 MG 17.5 mg Orally Once weekly for 30 day s Oct, Active Diclofenac Sodium 1 % 1 application Transdermal Twice a day Not-Taking Aspirin 81 81 MG 1 tablet Orally Once a day for 30 day(s) Not-Taking TraZODone HCl 50 MG 1 tablet at bedtime as neede d Orally Once a day for 30 day(s) Not-Taking Acidophilus - as directed Orally Act yonas Folic Acid 1 MG 2 tablet Orally Once a day for 30 days Oct, Active Hydrocodone-Acetaminophen 5-325 MG (Schedule II Drug) Oral every 6 hr s Not-Taking PROCEDURES No Information RESULTS No Results REASON FOR VISIT Headache, cervicalgia MEDICAL (GENERAL) HISTORY Type Description Date Medical [...] HERNIA Medical History RA Medical History psoriasis Medical History duodenal ulcer Surgical History Quadruple Cardiac Bypass/CABG 2006 Surgical [...] Treatment Notes Treatm ent Clinical Notes Oct, Cervicalgia (ICD-10 - M54.2) 70-year-old female in for chronic pain follow-up. Given presenting symptoms recommend increasing frequency of Fioricet with follow-up in 2 months. Patient has expressed understanding of and was in agreement with treatment plan. Given time to ask questions and express concerns. PLAN OF TREATMENT Medication Medication Name Sig Start Date Stop Date Fioricet 50-300-40 MG 1 capsule as needed Orally e very 6 hrs PRN pain for 30 days Sep, Treatment Notes Assessment Notes Clinical Notes Cervicalgia 70-year-old female in for ch ronic pain follow-up. Given presenting symptoms recommend increasing frequency of Fioricet with follow-up in 2 months. Patient has expressed understanding of and was in agreement with treatment plan. Given time to ask questions and express concerns. Next Appt Details 2 Months Reason:Headaches Provider Name:Royer Leon, 2020-12-23 11:30:00 AM, [address] [place], [phone], Follow Up:2 MonthsHeadaches Insurance Providers Payer Name Payer Address Payer Phone Insured Name Patient Relati onship to Insured Coverage Start Date Coverage End Date [facility] [address] [address] [facility] [phone] BRITNEY SOFIA self
--- OUTSIDE RECORDS SUMMARY | 2020-11-24 13:31 | CCD | Continuity of Care Document ---
Author Author [facility] Organization [facility] Address [address] [place] [address] Phone Support Name Relationship Address Phone Maria Luisa Elizondo PRS [address] [place] [address] Hospital Lab, [facility] [address] [place] [address] Allergies, Adverse Reactions, Alerts Allergen Type Severity Reaction Last Updated Verified Status naproxen Allergy Severe Hives July 06, 2019 3:04pm No Active fenofibrate Adverse Reaction Moderate skin rash July 20, 2019 12:29pm No Active zolpidem Adverse Reaction Moderate hallucinations July 20, 2019 12 :28pm No Active eszopiclone Adverse Reaction hallucinations July 20, 2019 12 :27pm No Active tramadol Adverse Reaction hallucination July 20, 2019 12:26pm No Active Medications Medication Status Dose Units Route Directions Qty Days Start Date End Date Instructions Afluria Qd 2018-(3yr up)(PF) (flu vac [id number] 36mos up(PF)) Discontinued 0.5 ML IM 1 Time/Once 0.5 July 20, 2019 11:50am July 072018 1:17pm Metoprolol Tartrate Discontinued 100 MG PO daily July 20, 2019 12:29pm August 31, 2019 9:25am Atorvastatin Discontinued 20 MG PO daily July 20, 2019 12:30pm August 31, 2019 9:25am Potassium Chloride Discontinued 40 MEQ PO daily July 20, 2019 12:30pm August 31, 2019 9:25am Acetaminophen Discontinued 325 MG PO Once Per Day July 20, 2019 12:31pm August 31, 2019 9:25am Hydrocodone-Acetaminophen Discontinued 1 TAB PO Three times a day October 19, 2019 10:32am May 18, 2020 3:33pm Shingrix (PF) 50 mcg/0.5 mL intramuscula r suspension, kit (varicella-zoster Discontinued 0.5 ML IM 1 Time/Once 0.5 August 02, 2020 12:01pm July 082019 1:17pm Lactobacillus Acidophilus (Acidophilus) capsule Active 2000 MMU CELLS PO 2 Times Per Day May 18, 2020 3:29pm give with f ood (meal/snack) Methotrexate Sodium Active 15 MG PO Every Week May 18, 2020 3:30pm Metoclopramide Hcl Active 10 MG PO Q8H May 18, 2020 3:30pm Polyethylene Glycol 3350 (Miralax) 17 gram/dose powder Active 17 GM PO daily May 18, 2020 3:32pm Potassium Chloride Discontinued 20 MEQ PO At Bedtime May 18, 2020 3:33pm August 22, 2020 10:50am Prednisolone Active 5 MG PO Every Morning May 18, 2020 3:34pm Folic Acid Active 1 MG PO daily May 18, 2020 3:53pm Atorvastatin Active 20 MG PO daily May 18, 2020 3:54pm Shingrix (PF) 50 mcg/0.5 mL intramuscula r suspension, kit (varicella-zoster Discontinued 0.5 ML IM 1 Time/Once 0.5 October 25, 2020 1:03pm October 252020 1:51pm Diclofenac Sodium Discontinued 2 GM TOP Four Times a Day July 27, 2019 4:05pm August 31, 2019 9:25am apply to upper extremities Metoprolol Succinate Discontinued 100 MG PO daily August 11, 2019 12:37pm August 19, 2019 1:58pm Metoprolol Tartrate Discontinued 100 MG PO daily August 19, 2019 1:58pm August 27, 2019 2:55pm Acetaminophen Active 325 MG PO Once Per Day August 31, 2019 9:21am Diclofenac Sodium Discontinued 2 GM TOP Four Times a Day August 31 9:22am May 18, 2020 3:34pm apply to up per extremities Metoprolol Tartrate Discontinued 100 MG PO daily August 31, 2019 9:22am January 18, 2020 11:39am Potassium Chloride Discontinued 40 MEQ PO daily August 31, 2019 9:23am May 18, 2020 3:32pm Atorvastatin Discontinued 20 MG PO daily August 31, 2019 9:25am March 24, 2020 10:18am Trazodone Discontinued 50 MG PO daily December 14, 2019 9:53am March 21, 2020 6:19am Metoprolol Tartrate Discontinued 100 MG PO daily January 18, 2020 11:39am April 21, 2020 6:19am Trazodone Discontinued 0 .ROUTE .COMPLEX March 21, 2020 6:19am June 27, 2020 8:58am TAKE ONE TABLET BY MOUTH EVERY DAY Atorvastatin Discontinued 20 MG PO daily March 24, 2020 10:18am May 18, 2020 3:54pm Metoprolol Tartrate Discontinued 0 .ROUTE .COMPLEX April 21, 2020 6:19am July 25, 2020 7:12am TAKE ONE T ABLET BY MOUTH EVERY DAY Trazodone Discontinued 0 .ROUTE .COMPLEX June 27, 2020 8:58am October 12, 2020 7:35am TAKE ONE TABLET BY MOUTH EVERY DAY Metoprolol Tartrate Active 0 .ROUTE .COMPLEX July 25, 2020 7:12am TAKE ONE TABLET BY MOUTH EVERY DAY Potassium Chloride Active 20 MEQ PO At Bedtime August 22, 2020 10:50am Trazodone Active 0 .ROUTE .COMPLEX October 12, 2020 7:35am TAKE ONE TABLET BY MOUTH EVERY DAY Problems Active Problems Medical Problem Onset Date Status Urinary incontinence A ctive Coronary artery disease Active Aneurysm artery, iliac Active Diarrhea Active Diarrhea Active Gastroenteritis Active Hyperlipidemia Active Pulmonary emboli Activ e Cervicalgia Active Hypertension Active Peptic ulcer Active Procedures Procedure Date Performed Status Gastrointestinal Tract Panel (PCR) [facility] 2019 completed WBC Smear April 24, 2020 completed Gastrointestinal Tract Panel (PCR) [facility] 2019 completed Relevant Diagnostic Tests and/or Laboratory Data Microbiology Results Procedure Source Result Collection Date/Time Result Date/Time Result Comment Performing Site Gastrointestinal Tract Panel (PCR) Stool No Organisms Detected April 27, 2020 2:38pm April 27, 2020 8:26pm [facility] [address] [facility] [address] WBC Smear Stool April 24, 2020 12:15pm April 24, 2020 2:04pm [facility], [address] [place] [id number] Gastrointestinal Tract Panel (PCR) Stool No Organisms Detected April 24, 2020 12:15pm April 24, 2020 3:04pm [facility] [address] [facility] [address] Health Concerns Health Concerns may be documented in an alternate section. Advance Directives Advance Directive Response Recorded Date/Time Advanced Directive No Ja nuary 2019 9:44am Does Patient have a DNR? No July 21, 2019 1:08pm Healthcare Proxy No Octo isabella 2018 1:08pm Living Will No July 072018 1:08pm Chief Complaint and Reason for Visit Chief Complaint Hypertension Diarrhea Medicare Annual Wellness subsequent Hospital Discharge Follow-up Hypertension Reason for Visit Diarrhea Hypertension Diarrhea Coronary artery disease Hyperlipidemia Hypertension Urinary incontinence Gastroenteritis Hypertension Encounters Encounter Location(s) Ar rival/Admit Date Discharge/Depart Date Provider(s) Departed Physician/Provider Office Visit [facility] April 12, 2020 12:24pm April 12, 2020 1:08pm Maria Luisa Mikhail Registered Referred [facility] April 24, 2020 11:15am [facility] Registered Referred [facility] April 27, 2020 1:38pm [facility] Departed Physician/Provider Office Visit [facility] May 18, 2020 3:08pm May 18, 2020 4:12pm Maria Luisa Mikhail Departed Physician/Provider Office Visit [facility] August 02, 2020 12:01pm August 02, 2020 1:20pm Maria Luisa Mikhail Departed Physician/Provider Office Visit [facility] September 21, 2020 8:55am September 21, 2020 9:59am Maria Luisa Mikhail Departed Physician/Provider Office Visit [facility] October 25, 2020 1:03pm October 25, 2020 1:55pm Maria Luisa Mikhail Recent Diagnosis Onset Date Diarrhea Hypertension Diarrhea Coronary artery disease Hyperlipidemia Hypertension Urinary incontinence Gastroenteritis Hypertension Assessments Diagnosis Onset Date Res olution Status Diarrhea acute Hypertension acute Diarrhea acute Coronary artery disease acute Hyperlipidemia acute Hypertension acute Urinary incontinence acute Gastroenteritis acute Hypertension acute Functional Status No Functional Status information available Goals Goals may be documented in an alternate section. Immunizations Immunization Event Date Not Given Reason Dose Number Instrument Repair Technician Lot Number Vaccine Information Statement (VIS) Deta maryann Shingrix August 02, 2020 [id number] Shingrix October 25, 2020 [id number] influenza vaccine, inactivated Octob er 2018 [id number] influenza vaccine, inactivated Septe mb 2019 Mental Status No Mental Status Information Available Medical Equipment No Medical Equipment Information available Insurance Providers Guarantor Naye Juarez Address [address] [place], [place] [id number] Contact Info. Home Phone: Payer Policy Id Coverage Id Subscriber's Name Subscriber Id Effective Date Expiration Date [employer] [id number] Naye Juarez [id number] 2018 [employer]ICARE [id number] Naye Juarez [id number] [employer] MEDICARE [id number] Naye Juarez [id number] Self Pay Self N/A Plan of Treatment Patient education: Diet: Encouraged to adjust caloric intake to maintain ideal body weight, to redu ce intake of dietary saturated fat and cholesterol, to limit sodium intake by avoiding high sodium fo ods and not adding table salt, and to maintain adequate dietary potassium, preferably from fresh fr uits and vegetables. Exercise: Stressed the importance of regular exercise 30-45 minutes most days of the week. Follow-up: In 3-6 months. SHINGRIX #2 TODAY CMP KEEP SCHEDULED APPT. [facility] TODAY LABS, MAMMO ORDERS GIVEN RTC 3 MONTHS GI PANEL Future Tests Future scheduled test information is unavailable Pending Tests Pending diagnostic test information is unavailable Future Visits Future appointment information is unavailable Referrals to Other Providers Referral information is unavailable Future Procedures Future procedure information is unavailable Future Medications Future medication information is unavailable Patient Instructions Patient instructions are unavailable Social History Assigned Sex Female Vital Signs Vital Reading Result Ref erence Range Collection Date/Time Height 62 [in_i] April 12, 2020 1:27pm Weight 152.00 [lb_av] April 12, 2020 1:27pm Heart Rate 60 /min 60-100 April 12, 2020 1:27pm Respiratory rate 18 /min 12-24 April 12, 2020 1:27pm Oxygen saturation by Pulse oximetry 98 % 95- 100 April 12, 2020 1:27pm BP Systolic 140 mm[Hg] April 12, 2020 1:27pm BP Diastolic 70 mm[Hg] April 12, 2020 1:27pm BMI (Body Mass Index) 27.8 kg/m2 April 12, 2020 1:27pm Height 62 [in_i] May 18, 2020 4:24pm Weight 155.03 [lb_av] May 18, 2020 4:24pm Heart Rate 54 /min 60-100 May 18, 2020 4:24pm Respiratory rate 18 /min 12-24 May 18, 2020 4:24pm Oxygen saturation by Pulse oximetry 97 % 95- 100 May 18, 2020 4:24pm BP Systolic 120 mm[Hg] May 18, 2020 4:24pm BP Diastolic 60 mm[Hg] May 18, 2020 4:24pm BMI (Body Mass Index) 28.3 kg/m2 May 18, 2020 4:24pm Height 62 [in_i] August 02, 2020 1:08pm Weight 154.01 [lb_av] August 02, 2020 1:08pm Heart Rate 72 /min 60-100 August 02, 2020 1:08pm Respiratory rate 18 /min -August 02, 2020 1:08pm Oxygen saturation by Pulse oximetry 98 % 95- 100 August 02, 2020 1:08pm BP Systolic 122 mm[Hg] August 02, 2020 1:08pm BP Diastolic 82 mm[Hg] August 02, 2020 1:08pm BMI (Body Mass Index) 28.1 kg/m2 August 02, 2020 1:08pm Height 62 [in_i] September 21, 2020 9:15am Weight 155.00 [lb_av] September 21, 2020 9:15am Heart Rate 72 /min 60-100 September 21, 2020 9:15am Respiratory rate 18 /min -September 21, 2020 9:15am Oxygen saturation by Pulse oximetry 98 % 95- 100 September 21, 2020 9:15am BP Systolic 120 mm[Hg] September 21, 2020 9:15am BP Diastolic 80 mm[Hg] September 21, 2020 9:15am BMI (Body Mass Index) 28.3 kg/m2 September 21, 2020 9:15am Height 62 [in_i] October 25, 2020 1:15pm Weight 160.00 [lb_av] October 25, 2020 1:15pm Heart Rate 68 /min 60-100 October 25, 2020 1:15pm Respiratory rate 18 /min -October 25, 2020 1:15pm Oxygen saturation by Pulse oximetry 98 % 95- 100 October 25, 2020 1:15pm BP Systolic 120 mm[Hg] October 25, 2020 1:15pm BP Diastolic 80 mm[Hg] October 25, 2020 1:15pm BMI (Body Mass Index) 29.2 kg/m2 October 25, 2020 1:15pm
--- OUTSIDE RECORDS SUMMARY | 2020-11-24 13:31 | CCD ---
Author Author [facility] Organization [facility] Address Unknown Phone Unavailable Care Team Providers Care Adobe Block Maker Name Role Phone Ashley Mccarty Unavailable PROBLEMS Type Condition ICD9-CM Code [id number] Code Onset Dates Condition S tatus SNOMED Code Notes Problem Rheumatoid arthritis involvi ng multiple sites with positive rheumatoid factor M05.79 Active [id number] ALLERGIES Allergen (clinical drug ingredient) Drug/Non Drug Allergy do cumented on EMR Reaction Allergy Type Onset Date Status Lactose([facility] Code:[address]-72) Unknown Drug Allergy Active tramadol Tramadol HCl(ND Code:[address]-19) Unknown Drug Aller gy Active fenofibrate Fenofibrate(ND Code:[address]-98) Unknown Drug Aller gy Active zolpidem Ambien([facility] Code:[address]-38) Unknown Drug Allergy Active eszopiclone Lunesta(ND Code:[address]-23) Unknown Drug Allergy Active ENCOUNTERS from 1950 to 2020-10-29 Encounter Location Date Provider Diagnosis [facility] [address] [place] [address] 15 Oct, 2020 Ashley Mccarty Rheumatoid arthritis involving multiple sites with positive rheumatoid factor M05.79 ; Cervicalgia M54.2 and Long-term use of high-risk medication Z79.899 IMMUNIZATIONS No Information SOCIAL HISTORY Tobacco Use: Social History Observation Description Date Details (start date - stop date) Former Smoker Sex Assigned At : Social History Observation Description Sex Assigned At Unknown Language: Question Answer Notes Languages spoken: Guinean Alcohol Screening: Question Answer Notes Did you [...] FOR REFERRAL No Information VITAL SIGNS Weight 159.4 lbs Oct, Weight-kg 72.3 kg Oct, Height 62 in Oct, BMI 29.15 kg/m2 Oct, Heart Rate 60 /min Oct, Respiratory Rate 18 /min Oct, Temperature 97.8 degrees Fahrenheit Oct, Oximetry 95% Oct, Blood pressure systolic 158 mm Hg Oct, Blood pressure diastolic 80 mm Hg Oct, MEDICATIONS Medication SIG (Take, [...] Information RESULTS No Results REASON FOR VISIT Follow up MEDICAL (GENERAL) HISTORY Type Description Date Medical [...] with positive rheumatoid factor (ICD-10 - M05.79) Rheumatoid arthritis is objectively well managed, I don't see a lot of synovitis on exam today. She does complain of some ongoing pain, however, somewhat episodic. I suggested that she could escalate methotrexate dose slightly, and she is interested in trying that. She will increase methotrexate up to 17.5 mg weekly and in conjunction with that she can escalate folic acid up to 2 mg daily because of the oral soreness she's been experiencing. She can continue prednisone 5 mg daily, I think the low dose is unlikely to cause much in the way of adverse side effects. I stressed the need for regular follow-up in rheumatology and regular lab monitoring. Next visit in 3 months with lab before. Oct, Cervicalgia (ICD-10 - M54.2) She has chronic neck pain which may in large part be related to osteoarthritis/degenerative disc disease, though RA is also known to involve the cervical spine. She should continue to follow-up this issue with pain management. Oct, Long-term use of high-risk medication (ICD-10 - Z79.899) Continue to check labs on methotrexate every 3 months including CBC and LFTs. No vaccine restrictions on methotrexate or low-dose prednisone. No known contraindication to receiving Covid 19 vaccine. Oct, Other Patient instructions : Increase methotrexate to 7 pills per week Increase folic acid to 2 pills per day Follow up 3 months with lab before No contraindication to covid vaccine in relation to RA or medications for RA PLAN OF TREATMENT Medication Medication Name Sig Start Date Stop Date Fioricet 50-300-40 MG 1 capsule as needed Orally e very 6 hrs PRN pain for 30 days Sep, Treatment Notes Assessment Notes Clinical Notes Rheumatoid arthritis involving multiple sites with pos itive rheumatoid factor Rheumatoid arthritis is objectively well managed, I don't see a lot of synovitis on exam today.She does complain of some ongoing pain, however, somewhat episodic.I suggested that she could escalate methotrexate dose slightly, and she is interested in trying that.She will increase methotrexate up to 17.5 mg weekly and in conjunction with that she can escalate folic acid up to 2 mg daily because of the oral soreness she's been experiencing.She can continue prednisone 5 mg daily, I think the low dose is unlikely to cause much in the way of adverse side effects.I stressed the need for regular follow-up in rheumatology and regular lab monitoring.Next visit in 3 months with lab before. Cervicalgia She has chronic neck pain wh ich may in large part be related to osteoarthritis/degenerative disc disease, though RA is also known to involve the cervical spine.She should continue to follow-up this issue with pain management. Long-term use of high-risk medication Continue to chec k labs on methotrexate every 3 months including CBC and LFTs.No vaccine restrictions on methotrexate or low-dose prednisone.No known contraindication to receiving Covid 19 vaccine. Future Test Test Name Order Date CBC with Differential [id number] C REACTIVE PROTEIN QUANTITATIV (At [facility]) [id number] Comprehensive Metabolic Profile (CMP) [id number] ERYTHROCYTE SEDIMENTATION RATE [id number] Next Appt Details 3 Months Reason: Provider Name:Royer Leon, 2020-12-23 11:30:00 AM, [address] [place], [address], Insurance Providers Payer Name Payer Address Payer Phone Insured Name Patient Relati onship to Insured Coverage Start Date Coverage End Date [facility] [address] [address] [facility] [id number] [phone] BRITNEY SOFIA self
--- OUTSIDE RECORDS SUMMARY | 2020-11-24 13:31 | CCD | Continuity of Care Document ---
Author Author [facility] Organization Unknown Address [address] [place] [address] Phone [phone] Care Team Providers Care Cinder Worker Name Role Phone Kim Correia M.D. AUTM [phone] Maria Luisa Elizondo AUTM [phone] Problems Active Problems Provider Date Bilateral carpal tunnel syndrome Arturo Stratton M.D. Onset : 06/11/2017 Forgetful Arturo Stratton M.D. Onset: 06/11/2017 Social History Type Date Description Comments Sex Unknown Tobacco Use Start: Unknown End: Unknown Patient is a former smoker Allergies, Adverse Reactions, Alerts Active Allergies Reaction Severity Comments Date Fenofibrate skin peel 06/11/2017 Ibuprofen 06/11/2017 Tramadol hallucination 06/11/2017 Ambien hallucinations 06/11/2017 Lunesta hallucinations 06/11/2017 Aricept caused confusion 02/25/2019 Cyclobenzaprine PCP does not want her to take it 02/25/2019 Medications Active Medications SIG Qnty Indications Ordering Provide r Date Diazepam 2mg Tablets 1 by mouth an hour prior to mri, may repeat once if necessary 2kerry Stratton M.D. 09/16/[address] 1 by mouth every day 90tafreedom Stratton M.D. Immunizations Description No Information Available Vital Signs Date Vital Result Comment 08/15/2020 5:41am BP Systolic 130 mmHg BP Diastolic 80 mmHg Heart Rate 76 /min Respiratory Rate 16 /min 08/28/2019 11:15am BP Systolic 130 mmHg BP Diastolic 80 mmHg Heart Rate 72 /min Respiratory Rate 16 /min Results Description No Information Available Procedures Description No Information Available Medical Devices Description No Information Available Encounters Type Date Location Provider Dx Diagnosis Office Visit 08/15/2020 1:30p Main office - [place] Vijaya delgado, P.A.-C. 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 10/27/2020 I63.09 Cerebral infarction due to throm bosis of other precerebral a Vijaya Bains, P.A.-C. 10/27/2020 G47.51 Confusional arousals Vijaya holloway, P.A.-C. 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 10/27/2020 M54.81 Occipital neuralgia Vijaya delgado, P.A.-C. 10/27/2020 M54.2 Cervicalgia Vijaya Teresa Bains, P.A.-C. 10/27/2020 G56.03 Carpal tunnel syndrome, bilatera l upper limbs Vijaya Bains, P.A.-C. 08/15/2020 I63.09 Cerebral infarction due to throm bosis of other precerebral a Vijaya Teresa Bains, P.A.-C. 08/15/2020 G31.84 Mild cognitive impairment, so st ated Vijaya Bains, P.A.-C. 08/15/2020 G47.51 Confusional arousals Vijaya holloway, P.A.-C. 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 08/15/2020 M54.2 Cervicalgia Vijaya Bains, P.A.-C. 08/15/2020 G56.03 Carpal tunnel syndrome, bilatera l upper limbs Vijaya Bains P.A.-C. 08/15/2020 M54.81 Occipital neuralgia Vijaya delgado P.A.-C. Plan of Treatment No Information Available Functional Status Description No Information Available Mental Status Description No Information Available Referrals Refer to Dr Reason for Referral Status Appt Date Mahad Su M.D. Created [facility] [address] [place], [place] [id number] [phone]
--- OUTSIDE RECORDS SUMMARY | 2020-11-24 13:31 | CCD ---
Author Author [facility] Organization [facility] Address Unknown Phone Unavailable Care Team Providers Care Potato Chip Fryer Name Role Phone Royer Leon Unavailable PROBLEMS Type Condition ICD9-CM Code [id number] Code Onset Dates Condition S tatus SNOMED Code Notes Problem Rheumatoid arthritis involvi ng multiple sites with positive rheumatoid factor M05.79 Active 431410722 ALLERGIES Allergen (clinical drug ingredient) Drug/Non Drug Allergy do cumented on EMR Reaction Allergy Type Onset Date Status Lactose([facility] Code:[address]-88) Unknown Drug Allergy Active tramadol Tramadol HCl([facility] Code:[address]-87) Unknown Drug Aller gy Active fenofibrate Fenofibrate([facility] Code:[address]-60) Unknown Drug Aller gy Active zolpidem Ambien([facility] Code:[address]-09) Unknown Drug Allergy Active eszopiclone Lunesta([facility] Code:[address]-53) Unknown Drug Allergy Active ENCOUNTERS from 1950 to 2020-09-26 Encounter Location Date Provider Diagnosis [facility] [address] [place] [address] Sep, Royer Leon Headache R51 and Cervicalgia M54.2 IMMUNIZATIONS No Information SOCIAL HISTORY Tobacco Use: Social History Observation Description Date Details (start date - stop date) Former Smoker Sex Assigned At : Social History Observation Description Sex Assigned At Unknown Language: Question Answer Notes Languages spoken: Beninese Alcohol Screening: Question Answer Notes Did you [...] FOR REFERRAL No Information VITAL SIGNS Weight 156.8 lbs Sep, Height 62 in Sep, BMI 28.68 kg/m2 Sep, Heart Rate 65 /min Sep, Respiratory Rate 18 /min Sep, Temperature 98.5 degrees Fahrenheit Sep, Oximetry 93% Sep, Blood pressure systolic 181 mm Hg Sep, Blood pressure diastolic 83 mm Hg Sep, MEDICATIONS Medication SIG (Take, Route, Frequency, Duration) [...] Information RESULTS No Results REASON FOR VISIT NECK PAIN/OCCIPITAL MEDICAL (GENERAL) HISTORY Type Description Date Medical [...] Clinical Notes Sep, Headache (ICD-10 - R51) 70-year-old female in for initial pain consult. Given presenting symptoms recommend Fioricet with follow-up in one month to determine efficacy of treatment. Discussed potential procedures with patient and she declines them at this time stating she does not wish to receive injections. Patient has expressed understanding of was in agreement with treatment plan. Given time to ask questions and expect concerns. Sep, Cervicalgia (ICD-10 - M54.2) Sep, Other PRE NPC VISIT PH ONE CALL ATTEMPTED, MESSAGE LEFT TO RETURN CALL- INFORMATION ENTERED FROM REFERRAL- Tre NARANJO RN 09/21/2020 10:30,Acetaminophen, butalbital, and caffeine material was printed PLAN OF TREATMENT Medication Medication Name Sig Start Date Stop Date Fioricet 50-300-40 MG 1 capsule as needed Orally e very 8 hrs PRN pain for 30 days Sep, Treatment Notes Assessment Notes Clinical Notes Headache 70-year-old female in for in itial pain consult. Given presenting symptoms recommend Fioricet with follow-up in one month to determine efficacy of treatment. Discussed potential procedures with patient and she declines them at this time stating she does not wish to receive injections. Patient has expressed understanding of was in agreement with treatment plan. Given time to ask questions and expect concerns. Next Appt Details 4 Weeks Reason:Headache, cervicalgia Follow Up:4 WeeksHeadache, cervicalgia Insurance Providers Payer Name Payer Address Payer Phone Insured Name Patient Relati onship to Insured Coverage Start Date Coverage End Date [employer] [address] [address] [facility] [id number] BRITNEY SOFIA self
--- OUTSIDE RECORDS SUMMARY | 2020-11-24 13:31 | CCD ---
Author Author [facility] Organization [facility] Address Unknown Phone Unavailable Care Team Providers Care Mechanical Commissioning Engineer Name Role Phone Royer Leon Unavailable PROBLEMS Type Condition ICD9-CM Code [id number] Code Onset Dates Condition S tatus SNOMED Code Notes Problem Rheumatoid arthritis involvi ng multiple sites with positive rheumatoid factor M05.79 Active [id number] ALLERGIES Allergen (clinical drug ingredient) Drug/Non Drug Allergy do cumented on EMR Reaction Allergy Type Onset Date Status Lactose([facility] Code:[address]-63) Unknown Drug Allergy Active tramadol Tramadol HCl([facility] Code:[address]-00) Unknown Drug Aller gy Active fenofibrate Fenofibrate([facility] Code:[address]-65) Unknown Drug Aller gy Active zolpidem Ambien([facility] Code:[address]-73) Unknown Drug Allergy Active eszopiclone Lunesta([facility] Code:[address]-17) Unknown Drug Allergy Active ENCOUNTERS from 1950 to 2020-09-21 Encounter Location Date Provider Diagnosis [facility] [address] [place] [id number] Sep, Royer Leon IMMUNIZATIONS No Information SOCIAL HISTORY Tobacco Use: Social History Observation Description Date Details (start date - stop date) Former Smoker Sex Assigned At : Social History Observation Description Sex Assigned At Unknown Language: Question Answer Notes Languages spoken: Turkmen Alcohol Screening: Question Answer Notes Did you [...] 1 tablet Oral Once a day Active Methotrexate Sodium 2.5 MG 15MG Orally Once weekly Oct, Active Potassium Chloride Eleonora ER 20 MEQ 2 TABS Orally once daily Active Folic Acid 1 MG 1 tablet Orally Once a day for 30 day(s) 2 Oct, Not-Taking TraZODone HCl 50 MG 1 tablet at bedtime as neede d Orally Once a day for 30 day(s) Active Metoprolol Tartrate 100 MG 1 tablet with food Oral Daily Active Hydrocodone-Acetaminophen 5-325 MG (Schedule II Drug) Oral every 6 hr s Not-Taking PredniSONE 5 MG 1-2 tablet Orally bid prn for 30 Active Loperamide HCl 2 MG 1 capsule as needed Orally as directed Active Aspirin 81 81 MG 1 tablet Orally Once a day for 30 day(s) Not-Taking Diclofenac Sodium 1 % 1 application Transdermal Twice a day Not-Taking Excedrin Tension Headache 500-65 MG 2 tablets as neede d Orally Three times a day Active Anoro Ellipta umeclidinium 62.5 mcg and vilanterol 25 mcg 1 inhalation oral once daily Active PROCEDURES No Information RESULTS No Results REASON FOR VISIT PRE NPC VISIT MEDICAL (GENERAL) HISTORY Type Description Date Medical History Hypertension Medical History High Cholesterol Medical History Neurological Problems Medical History COPD Medical History Stroke Medical History Diverticulitis Surgical History Quadruple Cardiac Bypass/CABG 2006 Surgical [...] History TUBAL LIGATION 1979 Hospitalization History surgeries Goals Section No Information Health Concerns No Information MEDICAL EQUIPMENT No Information MENTAL STATUS No Information FUNCTIONAL STATUS No Information ASSESSMENTS No Information PLAN OF TREATMENT Next Appt Details Provider Name:Royer Leon, 2020-09-22 01:00:00 PM, [address] [place], [address], Insurance Providers Payer Name Payer Address Payer Phone Insured Name Patient Relati onship to Insured Coverage Start Date Coverage End Date [facility] [address] [address] [facility] [phone] BRITNEY SOFIA self
--- OUTSIDE RECORDS SUMMARY | 2020-11-24 14:01 | CCD ---
Author Author [facility] Organization [facility] Address Unknown Phone Unavailable Care Team Providers Care Director Of Media Name Role Phone Kraig BERGMAN MD Unavailable Unavailable Kraig BERGMAN MD Unavailable Unavailable Kraig BERGMAN MD Unavailable Unavailable Kraig BERGMAN MD Unavailable Unavailable Kraig BERGMAN MD Unavailable Unavailable Kraig BERGMAN MD Unavailable Unavailable Kraig BERGMAN MD Unavailable Unavailable Kraig BERGMAN MD Unavailable Unavailable Kraig BERGMAN MD Unavailable Unavailable Kraig BERGMAN MD Unavailable Unavailable Kraig BERGMAN MD Unavailable Unavailable Kraig BERGMAN MD Unavailable Unavailable Kraig BERGMAN MD Unavailable Unavailable Kraig BERGMAN MD Unavailable Unavailable Kraig BERGMAN MD Unavailable Unavailable Kraig BERGMAN MD Unavailable Unavailable Kraig BERGMAN MD Unavailable Unavailable Kraig BERGMAN MD Unavailable Unavailable Kraig BERGMAN MD Unavailable Unavailable Kraig BERGMAN MD Unavailable Unavailable Kraig BERGMAN MD Unavailable Unavailable Kraig BERGMAN MD Unavailable Unavailable Kraig BERGMAN MD Unavailable Unavailable Kraig BERGMAN MD Unavailable Unavailable Kraig BERGMAN MD Unavailable Unavailable Kraig BERGMAN MD Unavailable Unavailable Kraig BERGMAN MD Unavailable Unavailable Kraig BERGMAN MD Unavailable Unavailable Kraig BERGMAN MD Unavailable Unavailable Kraig BERGMAN MD Unavailable Unavailable Kraig BERGMAN MD Unavailable Unavailable Kraig BERGMAN MD Unavailable Unavailable Kraig BERGMAN MD Unavailable Unavailable Kraig BERGMAN MD Unavailable Unavailable Kraig BERGMAN MD Unavailable Unavailable Kraig BERGMAN MD Unavailable Unavailable Kraig BERGMAN MD Unavailable Unavailable Kraig BERGMAN MD Unavailable Unavailable Kraig BERGMAN MD Unavailable Unavailable Kraig BERGMAN MD Unavailable Unavailable Kraig BERGMAN MD Unavailable Unavailable Kraig BERGMAN MD Unavailable Unavailable Kraig BERGMAN MD Unavailable Unavailable Kraig BERGMAN MD Unavailable Unavailable Kraig BERGMAN MD Unavailable Unavailable Kraig BERGMAN MD Unavailable Unavailable Kraig BERGMAN MD Unavailable Unavailable Kraig BERGMAN MD Unavailable Unavailable Kraig BERGMAN MD Unavailable Unavailable Kraig BERGMAN MD Unavailable Unavailable Kraig BERGMAN MD Unavailable Unavailable Kraig BERGMAN MD Unavailable Unavailable Kraig BERGMAN MD Unavailable Unavailable Kraig BERGMAN MD Unavailable Unavailable Kraig BERGMAN MD Unavailable Unavailable Kraig BERGMAN MD Unavailable Unavailable Kraig BERGMAN MD Unavailable Unavailable Kraig BERGMAN MD Unavailable Unavailable Kraig BERGMAN MD Unavailable Unavailable Kraig BERGMAN MD Unavailable Unavailable Kraig BERGMAN MD Unavailable Unavailable Kraig BERGMAN MD Unavailable Unavailable Kraig BERGMAN MD Unavailable Unavailable Kraig BERGMAN MD Unavailable Unavailable Kraig BERGMAN MD Unavailable Unavailable Kraig BERGMAN MD Unavailable Unavailable Shira Pierre Young PT Unavailable Unavailable Ignacio, Mi Young PT Unavailable Unavailable Ignacio, Mi Young PT Unavailable Unavailable Ignacio, Mi Young PT Unavailable Unavailable Ignacio, Mi Young PT Unavailable Unavailable Ignacio, Mi Young PT Unavailable Unavailable Ignacio, Mi Young PT Unavailable Unavailable Ignacio, Mi Young PT Unavailable Unavailable Ignacio, Mi Young PT Unavailable Unavailable Ignacio, Mi Young PT Unavailable Unavailable Ignacio, Mi Young PT Unavailable Unavailable Ignacio, Mi Young PT Unavailable Unavailable Ignacio, Mi Young PT Unavailable Unavailable Ignacio, Mi Young PT Unavailable Unavailable Ignacio, Mi Young PT Unavailable Unavailable Ignacio, Mi Young PT Unavailable Unavailable Ignacio, Mi Young PT Unavailable Unavailable Ignacio, Mi Young PT Unavailable Unavailable Ignacio, Mi Young PT Unavailable Unavailable Ignacio, Mi Young PT Unavailable Unavailable Ignacio, Mi Young PT Unavailable Unavailable Ignacio, Mi Young PT Unavailable Unavailable Lynda, Maria Luisa Unavailable Unavailable Vladimir Goyal PA-C Unavailable Unavailable Vladimir Goyal PA-C Unavailable Unavailable Vladimir GoyalC Unavailable Unavailable PHYSICIAN, PHYSICIAN ER Unavailable Unavailable DANIEL RODRIGUEZ MD Unavailable Unavailable DANIEL RODRIGUEZ MD Unavailable Unavailable DANIEL RODRIGUEZ MD Unavailable Unavailable DANIEL RODRIGUEZ MD Unavailable Unavailable DANIEL RODRIGUEZ MD Unavailable Unavailable DANIEL RODRIGUEZ MD Unavailable Unavailable DANIEL RODRIGUEZ MD Unavailable Unavailable DANIEL RODRIGUEZ MD Unavailable Unavailable DANIEL RODRIGUEZ MD Unavailable Unavailable DANIEL RODRIGUEZ MD Unavailable Unavailable DANIEL RODRIGUEZ MD Unavailable Unavailable DANIEL RODRIGUEZ MD Unavailable Unavailable DANIEL RODRIGUEZ MD Unavailable Unavailable DANIEL RODRIGUEZ MD Unavailable Unavailable DANIEL RODRIGUEZ MD Unavailable Unavailable DANIEL RODRIGUEZ MD Unavailable Unavailable DANIEL RODRIGUEZ MD Unavailable Unavailable DANIEL RODRIGUEZ MD Unavailable Unavailable DANIEL RODRIGUEZ MD Unavailable Unavailable DANIEL RODRIGUEZ MD Unavailable Unavailable DANIEL RODRIGUEZ MD Unavailable Unavailable DANIEL RODRIGUEZ MD Unavailable Unavailable DANIEL RODRIGUEZ MD Unavailable Unavailable DANIEL RODRIGUEZ MD Unavailable Unavailable DANIEL RODRIGUEZ MD Unavailable Unavailable DANIEL RODRIGUEZ MD Unavailable Unavailable DANIEL RODRIGUEZ MD Unavailable Unavailable DANIEL RODRIGUEZ MD Unavailable Unavailable DANIEL RODRIGUEZ MD Unavailable Unavailable PIPPA ZARAGOZA MD Unavailable Unavailable PIPPA ZARAGOZA MD Unavailable Unavailable PIPPA ZARAGOZA MD Unavailable Unavailable PIPPA ZARAGOZA MD Unavailable Unavailable Trickey, J Vijaya PA Unavailable Unavailable Trickey, J Vijaya PA Unavailable Unavailable Trickey, J Vijaya PA Unavailable Unavailable Trickey, J Vijaya PA Unavailable Unavailable Trickey, J Vijaya PA Unavailable Unavailable Trickey, J Vijaya PA Unavailable Unavailable Trickey, J Vijaya PA Unavailable Unavailable Trickey, J Vijaya PA Unavailable Unavailable Trickey, J Vijaya PA Unavailable Unavailable Trickey, J Vijaya PA Unavailable Unavailable Trickey, J Vijaya PA Unavailable Unavailable Trickey, J Vijaya PA Unavailable Unavailable Trickey, J Vijaya PA Unavailable Unavailable Trickey, J Vijaya PA Unavailable Unavailable Trickey, J Vijaya PA Unavailable Unavailable Trickey, J Vijaya PA Unavailable Unavailable Trickey, J Vijaya PA Unavailable Unavailable Trickey, J Vijaya PA Unavailable Unavailable Trickey, J Vijaya PA Unavailable Unavailable Trickey, J Vijaya PA Unavailable Unavailable Trickey, J Vijaya PA Unavailable Unavailable Trickey, J Vijaya PA Unavailable Unavailable Trickey, J Vijaya PA Unavailable Unavailable Trickey, J Vijaya PA Unavailable Unavailable Trickey, J Vijaya PA Unavailable Unavailable Trickey, J Vijaya PA Unavailable Unavailable Trickey, J Vijaya PA Unavailable Unavailable Trickey, J Vijaya PA Unavailable Unavailable Trickey, J Vijaya PA Unavailable Unavailable Trickey, J Vijaya PA Unavailable Unavailable Trickey, J Vijaya PA Unavailable Unavailable Trickey, J Vijaya PA Unavailable Unavailable Trickey, J Vijaya PA Unavailable Unavailable Trickey, J Vijaya PA Unavailable Unavailable Trickey, J Vijaya PA Unavailable Unavailable Trickey, J Vijaya PA Unavailable Unavailable Trickey, J Vijaya PA Unavailable Unavailable Trickey, J Vijaya PA Unavailable Unavailable Trickey, J Vijaya PA Unavailable Unavailable Trickey, J Vijaya PA Unavailable Unavailable Trickey, J Vijaya PA Unavailable Unavailable Trickey, J Vijaya PA Unavailable Unavailable Trickey, J Vijaya PA Unavailable Unavailable Trickey, J Vijaya PA Unavailable Unavailable Trickey, J Vijaya PA Unavailable Unavailable Trickey, J Vijaya PA Unavailable Unavailable Trickey, J Vijaya PA Unavailable Unavailable Trickey, J Vijaya PA Unavailable Unavailable ALIASES , DEFAULT / GENERIC / UNKNOWN PROVIDER * Unavailable Unavailable ALIASES , DEFAULT / GENERIC / UNKNOWN PROVIDER * Unavailable Unavailable ALIASES , DEFAULT / GENERIC / UNKNOWN PROVIDER * Unavailable Unavailable ALIASES , DEFAULT / GENERIC / UNKNOWN PROVIDER * Unavailable Unavailable ALIASES , DEFAULT / GENERIC / UNKNOWN PROVIDER * Unavailable Unavailable ALIASES , DEFAULT / GENERIC / UNKNOWN PROVIDER * Unavailable Unavailable ALIASES , DEFAULT / GENERIC / UNKNOWN PROVIDER * Unavailable Unavailable ALIASES , DEFAULT / GENERIC / UNKNOWN PROVIDER * Unavailable Unavailable ALIASES , DEFAULT / GENERIC / UNKNOWN PROVIDER * Unavailable Unavailable ALIASES , DEFAULT / GENERIC / UNKNOWN PROVIDER * Unavailable Unavailable ALIASES , DEFAULT / GENERIC / UNKNOWN PROVIDER * Unavailable Unavailable ALIASES , DEFAULT / GENERIC / UNKNOWN PROVIDER * Unavailable Unavailable ALIASES , DEFAULT / GENERIC / UNKNOWN PROVIDER * Unavailable Unavailable ALIASES , DEFAULT / GENERIC / UNKNOWN PROVIDER * Unavailable Unavailable ALIASES , DEFAULT / GENERIC / UNKNOWN PROVIDER * Unavailable Unavailable ALIASES , DEFAULT / GENERIC / UNKNOWN PROVIDER * Unavailable Unavailable ALIASES , DEFAULT / GENERIC / UNKNOWN PROVIDER * Unavailable Unavailable ALIASES , DEFAULT / GENERIC / UNKNOWN PROVIDER * Unavailable Unavailable ALIASES , DEFAULT / GENERIC / UNKNOWN PROVIDER * Unavailable Unavailable ALIASES , DEFAULT / GENERIC / UNKNOWN PROVIDER * Unavailable Unavailable ALIASES , DEFAULT / GENERIC / UNKNOWN PROVIDER * Unavailable Unavailable ALIASES , DEFAULT / GENERIC / UNKNOWN PROVIDER * Unavailable Unavailable ALIASES , DEFAULT / GENERIC / UNKNOWN PROVIDER * Unavailable Unavailable ALIASES , DEFAULT / GENERIC / UNKNOWN PROVIDER * Unavailable Unavailable ALIASES , DEFAULT / GENERIC / UNKNOWN PROVIDER * Unavailable Unavailable ALIASES , DEFAULT / GENERIC / UNKNOWN PROVIDER * Unavailable Unavailable ALIASES , DEFAULT / GENERIC / UNKNOWN PROVIDER * Unavailable Unavailable ALIASES , DEFAULT / GENERIC / UNKNOWN PROVIDER * Unavailable Unavailable ALIASES , DEFAULT / GENERIC / UNKNOWN PROVIDER * Unavailable Unavailable ALIASES , DEFAULT / GENERIC / UNKNOWN PROVIDER * Unavailable Unavailable ALIASES , DEFAULT / GENERIC / UNKNOWN PROVIDER * Unavailable Unavailable ALIASES , DEFAULT / GENERIC / UNKNOWN PROVIDER * Unavailable Unavailable ALIASES , DEFAULT / GENERIC / UNKNOWN PROVIDER * Unavailable Unavailable ALIASES , DEFAULT / GENERIC / UNKNOWN PROVIDER * Unavailable Unavailable ALIASES , DEFAULT / GENERIC / UNKNOWN PROVIDER * Unavailable Unavailable ALIASES , DEFAULT / GENERIC / UNKNOWN PROVIDER * Unavailable Unavailable ALIASES , DEFAULT / GENERIC / UNKNOWN PROVIDER * Unavailable Unavailable ALIASES , DEFAULT / GENERIC / UNKNOWN PROVIDER * Unavailable Unavailable ALIASES , DEFAULT / GENERIC / UNKNOWN PROVIDER * Unavailable Unavailable ALIASES , DEFAULT / GENERIC / UNKNOWN PROVIDER * Unavailable Unavailable ALIASES , DEFAULT / GENERIC / UNKNOWN PROVIDER * Unavailable Unavailable ALIASES , DEFAULT / GENERIC / UNKNOWN PROVIDER * Unavailable Unavailable ALIASES , DEFAULT / GENERIC / UNKNOWN PROVIDER * Unavailable Unavailable ALIASES , DEFAULT / GENERIC / UNKNOWN PROVIDER * Unavailable Unavailable ALIASES , DEFAULT / GENERIC / UNKNOWN PROVIDER * Unavailable Unavailable ALIASES , DEFAULT / GENERIC / UNKNOWN PROVIDER * Unavailable Unavailable ALIASES , DEFAULT / GENERIC / UNKNOWN PROVIDER * Unavailable Unavailable ALIASES , DEFAULT / GENERIC / UNKNOWN PROVIDER * Unavailable Unavailable ALIASES , DEFAULT / GENERIC / UNKNOWN PROVIDER * Unavailable Unavailable ALIASES , DEFAULT / GENERIC / UNKNOWN PROVIDER * Unavailable Unavailable ALIASES , DEFAULT / GENERIC / UNKNOWN PROVIDER * Unavailable Unavailable ALIASES , DEFAULT / GENERIC / UNKNOWN PROVIDER * Unavailable Unavailable ALIASES , DEFAULT / GENERIC / UNKNOWN PROVIDER * Unavailable Unavailable CHRISTOPHER WILLAMS MD Unavailable Unavailable CHRISTOPHER WILLAMS MD Unavailable Unavailable CHRISTOPHER WILLAMS MD Unavailable Unavailable CHRISTOPHER WILLAMS MD Unavailable Unavailable CHRISTOPHER WILLAMS MD Unavailable Unavailable TURRIN, KARIN Unavailable Unavailable TURRIN, KARIN Unavailable Unavailable TURRIN, KARIN Unavailable Unavailable DILSHADRIN, KARIN Unavailable Unavailable Sean Syed MD Unavailable Unavailable Sean Syed MD Unavailable Unavailable Sean Syed MD Unavailable Unavailable Sean Syed MD Unavailable Unavailable Sean Syed MD Unavailable Unavailable Sean Syed MD Unavailable Unavailable Sean Syed MD Unavailable Unavailable Sean Syed MD Unavailable Unavailable Sean Syed MD Unavailable Unavailable Sean Syed MD Unavailable Unavailable Sean Syed MD Unavailable Unavailable Kraig BERGMAN MD Unavailable Unavailable Kraig BERGMAN MD Unavailable Unavailable Kraig BERGMAN MD Unavailable Unavailable Kraig BERGMAN MD Unavailable Unavailable Kraig BERGMAN MD Unavailable Unavailable Kraig BERGMAN MD Unavailable Unavailable Kraig BERGMAN MD Unavailable Unavailable Kraig BERGMAN MD Unavailable Unavailable Kraig BERGMAN MD Unavailable Unavailable Kraig BERGMAN MD Unavailable Unavailable Kraig BERGMAN MD Unavailable Unavailable Kraig BERGMAN MD Unavailable Unavailable Kraig BERGMAN MD Unavailable Unavailable Kraig BERGMAN MD Unavailable Unavailable Kraig BERGMAN MD Unavailable Unavailable Kraig BERGMAN MD Unavailable Unavailable Kraig BERGMAN MD Unavailable Unavailable Kraig BERGMAN MD Unavailable Unavailable Kraig BERGMAN MD Unavailable Unavailable Kraig BERGMAN MD Unavailable Unavailable Kraig BERGMAN MD Unavailable Unavailable Kraig BERGMAN MD Unavailable Unavailable Kraig BERGMAN MD Unavailable Unavailable Kraig BERGMAN MD Unavailable Unavailable Kraig BERGMAN MD Unavailable Unavailable Kraig BERGMAN MD Unavailable Unavailable Kraig BERGMAN MD Unavailable Unavailable Kraig BERGMAN MD Unavailable Unavailable Kraig BERGMAN MD Unavailable Unavailable Kraig BERGMAN MD Unavailable Unavailable Kraig BERGMAN MD Unavailable Unavailable Kraig BERGMAN MD Unavailable Unavailable Kraig BERGMAN MD Unavailable Unavailable Kraig BERGMAN MD Unavailable Unavailable Kraig BERGMAN MD Unavailable Unavailable Kraig BERGMAN MD Unavailable Unavailable Kraig BERGMAN MD Unavailable Unavailable Kraig BERGMAN MD Unavailable Unavailable Kraig BERGMAN MD Unavailable Unavailable Kraig BERGMAN MD Unavailable Unavailable Kraig BERGMAN MD Unavailable Unavailable Kraig BERGMAN MD Unavailable Unavailable Kraig BERGMAN MD Unavailable Unavailable Kraig BERGMAN MD Unavailable Unavailable Kraig BERGMAN MD Unavailable Unavailable Kraig BERGMAN MD Unavailable Unavailable Kraig BERGMAN MD Unavailable Unavailable Kraig BERGMAN MD Unavailable Unavailable Kraig BERGMAN MD Unavailable Unavailable Kraig BERGMAN MD Unavailable Unavailable Kraig BERGMAN MD Unavailable Unavailable Kraig BERGMAN MD Unavailable Unavailable Kraig BERGMAN MD Unavailable Unavailable Kraig BERGMAN MD Unavailable Unavailable Kraig BERGMAN MD Unavailable Unavailable Kraig BERGMAN MD Unavailable Unavailable Kraig BERGMAN MD Unavailable Unavailable Kraig BERGMAN MD Unavailable Unavailable Kraig BERGMAN MD Unavailable Unavailable Kraig BERGMAN MD Unavailable Unavailable Kraig BERGMAN MD Unavailable Unavailable Kraig BERGMAN MD Unavailable Unavailable Kraig BERGMAN MD Unavailable Unavailable Kraig BERGMAN MD Unavailable Unavailable Kraig BERGMAN MD Unavailable Unavailable Kraig BERGMAN MD Unavailable Unavailable Sean BERRIOS MD Unavailable Unavailable Sean BERRIOS MD Unavailable Unavailable Sean BERRIOS MD Unavailable Unavailable Sean BERRIOS MD Unavailable Unavailable Sean BERRIOS MD Unavailable Unavailable Sean BERRIOS MD Unavailable Unavailable Sean BERRIOS MD Unavailable Unavailable Sean BERRIOS MD Unavailable Unavailable Sean BERRIOS MD Unavailable Unavailable Sean BERRIOS MD Unavailable Unavailable Sean BERRIOS MD Unavailable Unavailable Sean BERRIOS MD Unavailable Unavailable Sean BERRIOS MD Unavailable Unavailable Sean BERRIOS MD Unavailable Unavailable Sean BERRIOS MD Unavailable Unavailable Sean BERRIOS MD Unavailable Unavailable YASH, Sean HERBERT MD Unavailable Unavailable YASH, L BRITTANY STEPHENS Unavailable Unavailable YASH, L BRITTANY STEPHENS Unavailable Unavailable YASH, L BRITTANY STEPHENS Unavailable Unavailable YAHS, L BRITTANY MD Unavailable Unavailable YASH, L BRITTANY MD Unavailable Unavailable YASH, L BRITTANY MD Unavailable Unavailable Lynda, H Maria Luisa AEROPHYSICIST Unavailable Unavailable Lynda, H Maria Luisa AEROPHYSICIST Unavailable Unavailable Lynda, H Maria Luisa AEROPHYSICIST Unavailable Unavailable Lynda, H Maria Luisa AEROPHYSICIST Unavailable Unavailable Lynda, H Maria Luisa AEROPHYSICIST Unavailable Unavailable Lynda, H Maria Luisa AEROPHYSICIST Unavailable Unavailable Lynda, H Maria Luisa AEROPHYSICIST Unavailable Unavailable Lynda, H Maria Luisa AEROPHYSICIST Unavailable Unavailable Lynda, H Maria Luisa AEROPHYSICIST Unavailable Unavailable Lynda, H Maria Luisa AEROPHYSICIST Unavailable Unavailable Lynda, H Maria Luisa AEROPHYSICIST Unavailable Unavailable Lynda, H Maria Luisa AEROPHYSICIST Unavailable Unavailable Lynda, H Maria Luisa AEROPHYSICIST Unavailable Unavailable Lynda, H Maria Luisa AEROPHYSICIST Unavailable Unavailable Lynda, H Maria Luisa AEROPHYSICIST Unavailable Unavailable Lynda, H Maria Luisa AEROPHYSICIST Unavailable Unavailable Lynda, H Maria Luisa AEROPHYSICIST Unavailable Unavailable Lynda, H Maria Luisa AEROPHYSICIST Unavailable Unavailable Lynda, H Maria Luisa AEROPHYSICIST Unavailable Unavailable Lynda, H Maria Luisa AEROPHYSICIST Unavailable Unavailable Lynda, H Maria Luisa AEROPHYSICIST Unavailable Unavailable Lynda, H Maria Luisa AEROPHYSICIST Unavailable Unavailable Lynda, H Maria Luisa AEROPHYSICIST Unavailable Unavailable Lynda, H Maria Luisa AEROPHYSICIST Unavailable Unavailable Lynda, H Maria Luisa AEROPHYSICIST Unavailable Unavailable Lynda, H Maria Luisa AEROPHYSICIST Unavailable Unavailable Lynda, H Maria Luisa AEROPHYSICIST Unavailable Unavailable Lynda, H Maria Luisa AEROPHYSICIST Unavailable Unavailable Lynda, H Maria Luisa AEROPHYSICIST Unavailable Unavailable Lynda, H Maria Luisa AEROPHYSICIST Unavailable Unavailable Lynda, H Maria Luisa AEROPHYSICIST Unavailable Unavailable Lynda, H Maria Luisa AEROPHYSICIST Unavailable Unavailable Lynda, H Maria Luisa AEROPHYSICIST Unavailable Unavailable Lynda, H Maria Luisa AEROPHYSICIST Unavailable Unavailable Lynda, H Maria Luisa AEROPHYSICIST Unavailable Unavailable Lynda, H Marai Luisa AEROPHYSICIST Unavailable Unavailable Lynda, H Maria Luisa AEROPHYSICIST Unavailable Unavailable Lynda, H Maria Luisa AEROPHYSICIST Unavailable Unavailable Lynda, H Maria Luisa AEROPHYSICIST Unavailable Unavailable Lynda, H Maria Luisa AEROPHYSICIST Unavailable Unavailable Lynda, H Maria Luisa AEROPHYSICIST Unavailable Unavailable Lynda, H Maria Luisa AEROPHYSICIST Unavailable Unavailable Lynda, H Maria Luisa AEROPHYSICIST Unavailable Unavailable Lynda, H Maria Luisa AEROPHYSICIST Unavailable Unavailable Lynda, H Maria Luisa AEROPHYSICIST Unavailable Unavailable Lynda, H Maria Luisa AEROPHYSICIST Unavailable Unavailable Lynda, H Maria Luisa AEROPHYSICIST Unavailable Unavailable Lynda, H Maria Luisa AEROPHYSICIST Unavailable Unavailable Lynda, H Maria Luisa AEROPHYSICIST Unavailable Unavailable Lynda, H Maria Luisa AEROPHYSICIST Unavailable Unavailable Lynda, H Maria Luisa AEROPHYSICIST Unavailable Unavailable Lynda, H Maria Luisa AEROPHYSICIST Unavailable Unavailable Lynda, H Maria Luisa AEROPHYSICIST Unavailable Unavailable Lynda, H Maria Luisa AEROPHYSICIST Unavailable Unavailable Lynda, H Maria Luisa AEROPHYSICIST Unavailable Unavailable Lynda, H Maria Luisa AEROPHYSICIST Unavailable Unavailable Lynda, H Maria Luisa AEROPHYSICIST Unavailable Unavailable WOLFE, PAULINO Unavailable Unavailable BUMBANAC, A STAR AEROPHYSICIST Unavailable Unavailable BUMBANAC, A STAR AEROPHYSICIST Unavailable Unavailable BUMBANAC, A STAR AEROPHYSICIST Unavailable Unavailable BUMBANAC, A STAR AEROPHYSICIST Unavailable Unavailable BUMBANAC, A STAR AEROPHYSICIST Unavailable Unavailable BUMBANAC, A STAR AEROPHYSICIST Unavailable Unavailable BUMBANAC, A STAR AEROPHYSICIST Unavailable Unavailable BUMBANAC, A STAR AEROPHYSICIST Unavailable Unavailable BUMBANAC, A STAR AEROPHYSICIST Unavailable Unavailable BUMBANAC, A STAR AEROPHYSICIST Unavailable Unavailable BUMBANAC, A STAR AEROPHYSICIST Unavailable Unavailable BUMBANAC, A STAR AEROPHYSICIST Unavailable Unavailable BUMBANAC, A STAR AEROPHYSICIST Unavailable Unavailable BUMBANAC, A STAR AEROPHYSICIST Unavailable Unavailable BUMBANAC, A STAR AEROPHYSICIST Unavailable Unavailable BUMBANAC, A STAR AEROPHYSICIST Unavailable Unavailable BUMBANAC, A STAR AEROPHYSICIST Unavailable Unavailable BUMBANAC, A STAR AEROPHYSICIST Unavailable Unavailable BUMBANAC, A STAR AEROPHYSICIST Unavailable Unavailable BUMBANAC, A STAR AEROPHYSICIST Unavailable Unavailable BUMBANAC, A STAR AEROPHYSICIST Unavailable Unavailable BUMBANAC, A STAR AEROPHYSICIST Unavailable Unavailable BUMBANAC, A STAR AEROPHYSICIST Unavailable Unavailable BUMBANAC, A STAR AEROPHYSICIST Unavailable Unavailable BUMBANAC, A STAR AEROPHYSICIST Unavailable Unavailable Yamila Falanga, A Mandy CAMPUS MONITOR Unavailable Unavailable [place] Falanga, A Mandy CAMPUS MONITOR Unavailable Unavailable Yamila Falanga, A Mandy CAMPUS MONITOR Unavailable Unavailable Yamila Falanga, A Mandy CAMPUS MONITOR Unavailable Unavailable [place] Falanga, A Mandy CAMPUS MONITOR Unavailable Unavailable Yamila Falanga, A Mandy CAMPUS MONITOR Unavailable Unavailable [place] Falanga, A Mandy CAMPUS MONITOR Unavailable Unavailable Yamila Falanga, A Mandy CAMPUS MONITOR Unavailable Unavailable [place] Falanga, A Mandy CAMPUS MONITOR Unavailable Unavailable Yamila Falanga, A Mandy CAMPUS MONITOR Unavailable Unavailable Yamila Falanga, A Mandy CAMPUS MONITOR Unavailable Unavailable Yamila Falanga, A Mandy CAMPUS MONITOR Unavailable Unavailable Yamila Falanga, A Mandy CAMPUS MONITOR Unavailable Unavailable Yamila Falanga, A Mandy CAMPUS MONITOR Unavailable Unavailable Yamila Falanga, A Mandy CAMPUS MONITOR Unavailable Unavailable [place] Falanga, A Mandy CAMPUS MONITOR Unavailable Unavailable Yamila Falanga, A Mandy CAMPUS MONITOR Unavailable Unavailable Yamila Falanga, A Mandy CAMPUS MONITOR Unavailable Unavailable [place] Falanga, A Mandy CAMPUS MONITOR Unavailable Unavailable Yamila Falanga, A Mandy CAMPUS MONITOR Unavailable Unavailable [place] Falanga, A Mandy CAMPUS MONITOR Unavailable Unavailable Yamila Falanga, A Mandy CAMPUS MONITOR Unavailable Unavailable Yamila Falanga, A Mandy CAMPUS MONITOR Unavailable Unavailable Yamila Falanga, A Mandy CAMPUS MONITOR Unavailable Unavailable [place] Falanga, A Mandy CAMPUS MONITOR Unavailable Unavailable Yamila Falanga, A Mandy CAMPUS MONITOR Unavailable Unavailable Yamila Falanga, A Manyd CAMPUS MONITOR Unavailable Unavailable Yamila Falanga, A Mandy CAMPUS MONITOR Unavailable Unavailable [place] Falanga, A Mandy CAMPUS MONITOR Unavailable Unavailable [place] Falanga, A Mandy CAMPUS MONITOR Unavailable Unavailable KIM PALOMINO MD Unavailable Unavailable KIM PALOMINO MD Unavailable Unavailable KIM PALOMINO MD Unavailable Unavailable KIM PALOMINO MD Unavailable Unavailable KIM PALOMINO MD Unavailable Unavailable KIM PALOMINO MD Unavailable Unavailable KIM PALOMINO MD Unavailable Unavailable KIM PALOMINO MD Unavailable Unavailable KIM PALOMINO MD Unavailable Unavailable KIM PALOMINO MD Unavailable Unavailable KIM PALOMINO MD Unavailable Unavailable KIM PALOMINO MD Unavailable Unavailable ERMA ZHANG MD Unavailable Unavailable UR ERMA KILPATRICK MD Unavailable Unavailable ERAM ZHANG MD Unavailable Unavailable UR ERMA KILPATRICK MD Unavailable Unavailable UR ERMA KILPATRICK MD Unavailable Unavailable UR ERMA KILPATRICK MD Unavailable Unavailable UR ERMA KILPATRICK MD Unavailable Unavailable UR ERMA KILPATRICK MD Unavailable Unavailable UR ERMA KILPATRICK MD Unavailable Unavailable UR ERMA KILPATRICK MD Unavailable Unavailable UR MARTHA KILPATRICKA BRADENDESTINY STEPHENS Unavailable Unavailable UR MARTHA KILPATRICKA BRADENDESTINY STEPHENS Unavailable Unavailable UR MARTHA KILPATRICKA BRADENDESTINY STEPHENS Unavailable Unavailable UR MARTHA KILPATRICKA BRADENDESTINY STEPHENS Unavailable Unavailable UR MARTHA KILPATRICKA BRADENDESTINY STEPHENS Unavailable Unavailable UR ERMA KILPATRICK MD Unavailable Unavailable UR ERMA KILPATRICK MD Unavailable Unavailable Li, Zhenbo PA Unavailable Unavailable Li, Zhenbo PA Unavailable Unavailable Li, Zhenbo PA Unavailable Unavailable Li, Zhenbo PA Unavailable Unavailable Sam, Trupti Pizarro MD Unavailable Unavailable Sam, Trupti Pizarro MD Unavailable Unavailable Sam, Trupti Pizarro MD Unavailable Unavailable Sam, Trupti Pizarro MD Unavailable Unavailable Sam, Trupti Pizarro MD Unavailable Unavailable Sam, Trupti Pizarro MD Unavailable Unavailable Sam, Trupti Pizarro MD Unavailable Unavailable Sam, Trupti Pizarro MD Unavailable Unavailable Sam, Trupti Pizarro MD Unavailable Unavailable Sam, Trupti Pizarro MD Unavailable Unavailable Sam, Trupti Pizarro MD Unavailable Unavailable Sam, Trupti Pizarro MD Unavailable Unavailable Sam, Trupti Pizarro MD Unavailable Unavailable Sam, Trupti Pizarro MD Unavailable Unavailable Sam, Trupti Pizarro MD Unavailable Unavailable Sam, Trupti Pizarro MD Unavailable Unavailable Sam, Trupti Pizarro MD Unavailable Unavailable Sam, Trupti Pizarro MD Unavailable Unavailable Sam, Trupti Pizarro MD Unavailable Unavailable Sam, Trupti Pizarro MD Unavailable Unavailable Sam, Trupti Pizarro MD Unavailable Unavailable Sam, Trupti Pizarro MD Unavailable Unavailable Sam, Trupti Pizarro MD Unavailable Unavailable Sam, Trupti Pizarro MD Unavailable Unavailable Sam, Trupti Pizarro MD Unavailable Unavailable Sam, Trupti Pizarro MD Unavailable Unavailable Sam, Trupti Pizarro MD Unavailable Unavailable Sam, Trupti Pizarro MD Unavailable Unavailable Sam, Trupti Pizarro MD Unavailable Unavailable Sam, Trupti Pizarro MD Unavailable Unavailable Sam, Trupti Pizarro MD Unavailable Unavailable Sam, Trupti Pizarro MD Unavailable Unavailable Sam, Trupti Pizarro MD Unavailable Unavailable Sam, Trupti Pizarro MD Unavailable Unavailable Sam, Trupti Pizarro MD Unavailable Unavailable Sam, Trupti Pizarro MD Unavailable Unavailable Sam, Trupti Pizarro MD Unavailable Unavailable Sam, Trupti Pizarro MD Unavailable Unavailable Sam, Trupti Pizarro MD Unavailable Unavailable Sam, Trupti Pizarro MD Unavailable Unavailable Sam, Trupti Pizarro MD Unavailable Unavailable Sam, Trupti Pizarro MD Unavailable Unavailable Sam, Trupti Pizarro MD Unavailable Unavailable Sam, Trupti Pizarro MD Unavailable Unavailable Sam, Trupti Pizarro MD Unavailable Unavailable Sam, Trupti Pizarro MD Unavailable Unavailable Sam, Trupit Pizarro MD Unavailable Unavailable Sam, Trupti Pizarro MD Unavailable Unavailable Sam, Trupti Pizarro MD Unavailable Unavailable Sam, Trupti Pizarro MD Unavailable Unavailable Sam, Trupti Pizarro MD Unavailable Unavailable Sam, Trupti Pizarro MD Unavailable Unavailable Sam, Trupti Pizarro MD Unavailable Unavailable Sam, Trupti Pizarro MD Unavailable Unavailable Sam, Trupti Pizarro MD Unavailable Unavailable Sam, Trupti Pizarro MD Unavailable Unavailable Sam, Trupti Pizarro MD Unavailable Unavailable Sam, Trupti Pizarro MD Unavailable Unavailable Sam, Trupti Pizarro MD Unavailable Unavailable Sam, Trupti Pizarro MD Unavailable Unavailable Sam, Trupti Pizarro MD Unavailable Unavailable Sam, Trupti Pizarro MD Unavailable Unavailable Sam, Trupti Pizarro MD Unavailable Unavailable Sam, Trupti Pizarro MD Unavailable Unavailable Sam, Trupti Pizarro MD Unavailable Unavailable Sam, Trupti Pizarro MD Unavailable Unavailable Sam, Trupti Pizarro MD Unavailable Unavailable Sam, Trupti Pizarro MD Unavailable Unavailable Sam, Trupti Pizarro MD Unavailable Unavailable Sam, Trupti Pizarro MD Unavailable Unavailable Sam, Trupti Pizarro MD Unavailable Unavailable Sam, Trupti Pizarro MD Unavailable Unavailable Sam, Trupti Pizarro MD Unavailable Unavailable Sam, Trupti Pizarro MD Unavailable Unavailable Camryn HOWARD Unavailable Unavailable Camryn HOWARD Unavailable Unavailable Camryn HOWARD Unavailable Unavailable PHYSICIAN, ER Unavailable Unavailable Ignacio, Mi Young PT Unavailable Unavailable Ignacio, Mi Young PT Unavailable Unavailable Ignacio, Mi Young PT Unavailable Unavailable Ignacio, Mi Young PT Unavailable Unavailable Ignacio, Mi Young PT Unavailable Unavailable Ignacio, Mi Young PT Unavailable Unavailable Ignacio, Mi Young PT Unavailable Unavailable Ignacio, Mi Young PT Unavailable Unavailable Ignacio, Mi Young PT Unavailable Unavailable Ignacio, Mi Young PT Unavailable Unavailable Ignacio, Mi Young PT Unavailable Unavailable Ignacio, Mi Young PT Unavailable Unavailable Ignacio, Mi Young PT Unavailable Unavailable Ignacio, Mi Young PT Unavailable Unavailable Ignacio, Mi Young PT Unavailable Unavailable Ignacio, Mi Young PT Unavailable Unavailable Ignacio, Mi Young PT Unavailable Unavailable Ignacio, Mi Young PT Unavailable Unavailable Ignacio, Mi Young PT Unavailable Unavailable Ignacio, Mi Young PT Unavailable Unavailable Ignacio, Mi Young PT Unavailable Unavailable Ignacio, Mi Young PT Unavailable Unavailable Kraig BERGMAN MD Unavailable Unavailable Kraig BERGMAN MD Unavailable Unavailable Kraig BERGMAN MD Unavailable Unavailable Kraig BERGMAN MD Unavailable Unavailable Kraig BERGMAN MD Unavailable Unavailable Kraig BERGMAN MD Unavailable Unavailable Kraig BERGMAN MD Unavailable Unavailable Kraig BERGMAN MD Unavailable Unavailable Kraig BERGMAN MD Unavailable Unavailable Kraig BERGMAN MD Unavailable Unavailable Kraig BERGMAN MD Unavailable Unavailable Kraig BERGMAN MD Unavailable Unavailable Kraig BERGMAN MD Unavailable Unavailable Kraig BERGMAN MD Unavailable Unavailable Kraig BERGMAN MD Unavailable Unavailable Kraig BERGMAN MD Unavailable Unavailable Kraig BERGMAN MD Unavailable Unavailable Kraig BERGMAN MD Unavailable Unavailable Kraig BERGMAN MD Unavailable Unavailable Kraig BERGMAN MD Unavailable Unavailable Kraig BERGMAN MD Unavailable Unavailable Kraig BERGMAN MD Unavailable Unavailable Kraig BERGMAN MD Unavailable Unavailable Kraig BERGMAN MD Unavailable Unavailable Kraig BERGMAN MD Unavailable Unavailable Kraig BERGMAN MD Unavailable Unavailable Kraig BERGMAN MD Unavailable Unavailable Kraig BERGMAN MD Unavailable Unavailable Kraig BERGMAN MD Unavailable Unavailable Kraig BERGMAN MD Unavailable Unavailable Kraig BERGMAN MD Unavailable Unavailable Kraig BERGMAN MD Unavailable Unavailable Kraig BERGMAN MD Unavailable Unavailable Kraig BERGMAN MD Unavailable Unavailable Kraig BERGMAN MD Unavailable Unavailable Kraig BERGMAN MD Unavailable Unavailable Kraig BERGMAN MD Unavailable Unavailable Kraig BERGMAN MD Unavailable Unavailable Kraig BERGMAN MD Unavailable Unavailable Kraig BERGMAN MD Unavailable Unavailable Kraig BERGMAN MD Unavailable Unavailable Kraig BERGMAN MD Unavailable Unavailable Kraig BERGMAN MD Unavailable Unavailable Kraig BERGMAN MD Unavailable Unavailable Kraig BERGMAN MD Unavailable Unavailable Kraig BERGMAN MD Unavailable Unavailable Kraig BERGMAN MD Unavailable Unavailable Kraig BERGMAN MD Unavailable Unavailable Kraig BERGMAN MD Unavailable Unavailable Kraig BERGMAN MD Unavailable Unavailable Kraig BERGMAN MD Unavailable Unavailable Kraig BERGMAN MD Unavailable Unavailable Kraig BERGMAN MD Unavailable Unavailable Kraig BERGMAN MD Unavailable Unavailable Kraig BERGMAN MD Unavailable Unavailable Kraig BERGMAN MD Unavailable Unavailable Kraig BERGMAN MD Unavailable Unavailable Kraig BERGMAN MD Unavailable Unavailable Kraig BERGMAN MD Unavailable Unavailable PACHECO, Kraig SANCHEZ MD Unavailable Unavailable PACHECO, Kraig SANCHEZ MD Unavailable Unavailable PACHECO, Kraig SANCHEZ MD Unavailable Unavailable PACHECO, Kraig SANCHEZ MD Unavailable Unavailable PACHECO, Kraig SANCHEZ MD Unavailable Unavailable PACHECO, Kraig SANCHEZ MD Unavailable Unavailable Kraig BERGMAN MD Unavailable Unavailable Lynda, H Maria Luisa AEROPHYSICIST Unavailable Unavailable Lynda, H Maria Luisa AEROPHYSICIST Unavailable Unavailable Lynda, H Maria Luisa AEROPHYSICIST Unavailable Unavailable Lynda, H Maria Luisa AEROPHYSICIST Unavailable Unavailable Lynda, H Maria Luisa AEROPHYSICIST Unavailable Unavailable Lynda, H Maria Luisa AEROPHYSICIST Unavailable Unavailable Lynda, H Maria Luisa AEROPHYSICIST Unavailable Unavailable Lynda, H Maria Luisa AEROPHYSICIST Unavailable Unavailable Lynda, H Maria Luisa AEROPHYSICIST Unavailable Unavailable Lynda, H Maria Luisa AEROPHYSICIST Unavailable Unavailable Lynda, H Maria Luisa AEROPHYSICIST Unavailable Unavailable Lydna, H Maria Luisa AEROPHYSICIST Unavailable Unavailable Lynda, H Maria Luisa AEROPHYSICIST Unavailable Unavailable Lynda, H Maria Luisa AEROPHYSICIST Unavailable Unavailable Lynda, H Maria Luisa AEROPHYSICIST Unavailable Unavailable Lynda, H Maria Luisa AEROPHYSICIST Unavailable Unavailable Lynda, H Maria Luisa AEROPHYSICIST Unavailable Unavailable Lynda, H Maria Luisa AEROPHYSICIST Unavailable Unavailable Lynda, H Maria Luisa AEROPHYSICIST Unavailable Unavailable Lynda, H Maria Luisa AEROPHYSICIST Unavailable Unavailable Lynda, H Maria Luisa AEROPHYSICIST Unavailable Unavailable Lynda, H Maria Luisa AEROPHYSICIST Unavailable Unavailable Lynda, H Maria Luisa AEROPHYSICIST Unavailable Unavailable Lynda, H Maria Luisa AEROPHYSICIST Unavailable Unavailable Lynda, H Maria Luisa AEROPHYSICIST Unavailable Unavailable Lynda, H Maria Luisa AEROPHYSICIST Unavailable Unavailable Lynda, H Maria Luisa AEROPHYSICIST Unavailable Unavailable Lynda, H Maria Luisa AEROPHYSICIST Unavailable Unavailable Lynda, H Maria Luisa AEROPHYSICIST Unavailable Unavailable Lynda, H Maria Luisa AEROPHYSICIST Unavailable Unavailable Lynda, H Maria Luisa AEROPHYSICIST Unavailable Unavailable Lynda, H Maria Luisa AEROPHYSICIST Unavailable Unavailable Lynda, H Maria Luisa AEROPHYSICIST Unavailable Unavailable Lynda, H Maria Luisa AEROPHYSICIST Unavailable Unavailable Lynda, H Maria Luisa AEROPHYSICIST Unavailable Unavailable Lynda, H Maria Luisa AEROPHYSICIST Unavailable Unavailable Lynda, H Maria Luisa AEROPHYSICIST Unavailable Unavailable Lynda, H Maria Luisa AEROPHYSICIST Unavailable Unavailable Lynda, H Maria Luisa AEROPHYSICIST Unavailable Unavailable Lynda, H Maria Luisa AEROPHYSICIST Unavailable Unavailable Lynda, H Maria Luisa AEROPHYSICIST Unavailable Unavailable Lynda, H Maria Luisa AEROPHYSICIST Unavailable Unavailable Lynda, H Maria Luisa AEROPHYSICIST Unavailable Unavailable Lynda, H Maria Luisa AEROPHYSICIST Unavailable Unavailable Lynda, H Maria Luisa AEROPHYSICIST Unavailable Unavailable Lynda, H Maria Luisa AEROPHYSICIST Unavailable Unavailable Lynda, H Maria Luisa AEROPHYSICIST Unavailable Unavailable Lynda, H Maria Luisa AEROPHYSICIST Unavailable Unavailable Lynda, H Maria Luisa AEROPHYSICIST Unavailable Unavailable Lynda, H Maria Luisa AEROPHYSICIST Unavailable Unavailable Lynda, H Maria Luisa AEROPHYSICIST Unavailable Unavailable Lynda, H Maria Luisa AEROPHYSICIST Unavailable Unavailable Lynda, H Maria Luisa AEROPHYSICIST Unavailable Unavailable Lynda, H Maria Luisa AEROPHYSICIST Unavailable Unavailable Lynda, H Maria Luisa AEROPHYSICIST Unavailable Unavailable Lynda, H Maria Luisa AEROPHYSICIST Unavailable Unavailable Lynda, H Maria Luisa AEROPHYSICIST Unavailable Unavailable Vail, A Jakob MD Unavailable Unavailable Vail, A Jakob MD Unavailable Unavailable Vail, A Jakob MD Unavailable Unavailable Vail, A Jakob MD Unavailable Unavailable Vail, A Jakob MD Unavailable Unavailable Vail, A Jakob MD Unavailable Unavailable Vail, A Jakob MD Unavailable Unavailable Vail, A Jakob MD Unavailable Unavailable Vail, A Jakob MD Unavailable Unavailable Vail, A Jakob MD Unavailable Unavailable Vail, A Jakob MD Unavailable Unavailable Vail, A Jakob MD Unavailable Unavailable Vail, A Jakob MD Unavailable Unavailable Vail, A Jakob MD Unavailable Unavailable Vail, A Jakob MD Unavailable Unavailable Vail, A Jakob MD Unavailable Unavailable Vail, A Jakob MD Unavailable Unavailable Vail, A Jakob MD Unavailable Unavailable Vail, A Jakob MD Unavailable Unavailable Vail, A Jakob MD Unavailable Unavailable Vail, A Jakob MD Unavailable Unavailable Vail, A Jakob MD Unavailable Unavailable Vail, A Jakob MD Unavailable Unavailable Vail, A Jakob MD Unavailable Unavailable Vail, A Jakob MD Unavailable Unavailable Vail, A Jakob MD Unavailable Unavailable Vail, A Jakob MD Unavailable Unavailable Vail, A Jakob MD Unavailable Unavailable Vail, A Jakob MD Unavailable Unavailable Vail, A Jakob MD Unavailable Unavailable Vail, A Jakob MD Unavailable Unavailable Vail, A Jakob MD Unavailable Unavailable Vail, A Jakob MD Unavailable Unavailable Vail, A Jakob MD Unavailable Unavailable Vail, A Jakob MD Unavailable Unavailable Vail, A Jakob MD Unavailable Unavailable Vail, A Jakob MD Unavailable Unavailable Vail, A Jakob MD Unavailable Unavailable Vail, A Jakob MD Unavailable Unavailable Vail, A Jakob MD Unavailable Unavailable Vail, A Jakob MD Unavailable Unavailable Vail, A Jakob MD Unavailable Unavailable Vail, A Jakob MD Unavailable Unavailable Vail, A Jakob MD Unavailable Unavailable Vail, A Jakob MD Unavailable Unavailable Vail, A Jakob MD Unavailable Unavailable Vail, A Jakob MD Unavailable Unavailable Vail, A Jakob MD Unavailable Unavailable Vail, A Jakob MD Unavailable Unavailable Vail, A Jakob MD Unavailable Unavailable Vail, A Jakob MD Unavailable Unavailable Vail, A Jakob MD Unavailable Unavailable Vail, A Jakob MD Unavailable Unavailable Vail, A Jakob MD Unavailable Unavailable Vail, A Jakob MD Unavailable Unavailable Vail, A Jakob MD Unavailable Unavailable Vail, A Jakob MD Unavailable Unavailable Vail, A Jakob MD Unavailable Unavailable Vail, A Jakob MD Unavailable Unavailable Vail, A Jakob MD Unavailable Unavailable Vail, A Jakob MD Unavailable Unavailable Vail, A Jakob MD Unavailable Unavailable Vail, A Jakob MD Unavailable Unavailable Vail, A Jakob MD Unavailable Unavailable Vail, A Jakob MD Unavailable Unavailable Vail, A Jakob MD Unavailable Unavailable Vail, A Jakob MD Unavailable Unavailable Vail, A Jakob MD Unavailable Unavailable Vail, A Jakob MD Unavailable Unavailable Vail, A Jakob MD Unavailable Unavailable Vail, A Jakob MD Unavailable Unavailable Vail, A Jakob MD Unavailable Unavailable Vail, A Jakob MD Unavailable Unavailable Vail, A Jakob MD Unavailable Unavailable Vail, A Jakob MD Unavailable Unavailable Vail, A Jakob MD Unavailable Unavailable Vail, A Jakob MD Unavailable Unavailable Vail, A Jakob MD Unavailable Unavailable Vail, A Jakob MD Unavailable Unavailable Vail, A Jakob MD Unavailable Unavailable Vail, A Jakob MD Unavailable Unavailable Vail, A Jakob MD Unavailable Unavailable Stuck, K Qi PA Unavailable Unavailable Stuck, K Qi PA Unavailable Unavailable Stuck, K Qi PA Unavailable Unavailable Stuck, K Qi PA Unavailable Unavailable Stuck, K Qi PA Unavailable Unavailable Stuck, K Qi PA Unavailable Unavailable Stuck, K Qi PA Unavailable Unavailable Stuck, K Qi PA Unavailable Unavailable Stuck, K Qi PA Unavailable Unavailable Stuck, K Qi PA Unavailable Unavailable Stuck, K Qi PA Unavailable Unavailable Stuck, K Qi PA Unavailable Unavailable Stuck, K Qi PA Unavailable Unavailable Stuck, K Qi PA Unavailable Unavailable Stuck, K Qi PA Unavailable Unavailable Stuck, K Qi PA Unavailable Unavailable Stuck, K Qi PA Unavailable Unavailable Stuck, K Qi PA Unavailable Unavailable Stuck, K Qi PA Unavailable Unavailable Stuck, K Qi PA Unavailable Unavailable Stuck, K Qi PA Unavailable Unavailable Stuck, K Qi PA Unavailable Unavailable Stuck, K Qi PA Unavailable Unavailable Stuck, K Qi PA Unavailable Unavailable Stuck, K Qi PA Unavailable Unavailable Stuck, K Qi PA Unavailable Unavailable Stuck, K Qi PA Unavailable Unavailable Stuck, K Qi PA Unavailable Unavailable Stuck, K Qi PA Unavailable Unavailable Stuck, K Qi PA Unavailable Unavailable Stuck, K Qi PA Unavailable Unavailable Stuck, K Qi PA Unavailable Unavailable Stuck, K Qi PA Unavailable Unavailable Stuck, K Qi PA Unavailable Unavailable Stuck, K Qi PA Unavailable Unavailable Stuck, K Qi PA Unavailable Unavailable Stuck, K Qi PA Unavailable Unavailable Stuck, K Qi PA Unavailable Unavailable Stuck, K Qi PA Unavailable Unavailable Stuck, K Qi PA Unavailable Unavailable Stuck, K Qi PA Unavailable Unavailable Vic, Berto Harris MD Unavailable Unavailable Vic, Berto Harris MD Unavailable Unavailable Vic, Berto Harris MD Unavailable Unavailable Vic, Berto Harris MD Unavailable Unavailable Vic, M Beth MD Unavailable Unavailable Vic, Berto Harris MD Unavailable Unavailable Vic, M Beth MD Unavailable Unavailable Vic, M Beth MD Unavailable Unavailable Vic, M Beth MD Unavailable Unavailable Vic, M Beth MD Unavailable Unavailable Vic, Berto Harris MD Unavailable Unavailable Vic, Berto Harris MD Unavailable Unavailable Vic, Berto Harris MD Unavailable Unavailable SYSTEM IN, NOT IN PROVIDER Unavailable Unavailable MARYCHUY, F KENDRICK DO Unavailable Unavailable MARYCHUY, F KENDRICK DO Unavailable Unavailable MARYCHUY, F KENDRICK DO Unavailable Unavailable MARYCHUY, F KENDRICK DO Unavailable Unavailable MARYCHUY, F KENDRICK DO Unavailable Unavailable MARYCHUY, F KENDRICK DO Unavailable Unavailable MARYCHUY, F KENDRICK DO Unavailable Unavailable MARYCHUY, F KENDRICK DO Unavailable Unavailable MARYCHUY, F KENDRICK DO Unavailable Unavailable MARYCHUY, F KENDRICK DO Unavailable Unavailable MARYCHUY, F KENDRICK DO Unavailable Unavailable MARYCHUY, F KENDRICK DO Unavailable Unavailable MARYCHUY, F KENDRICK DO Unavailable Unavailable MARYCHUY, F KENDRICK DO Unavailable Unavailable MARYCHUY, F KENDRICK DO Unavailable Unavailable MARYCHUY, F KENDRICK DO Unavailable Unavailable MARYCHUY, F KENDRICK DO Unavailable Unavailable MARYCHUY, F KENDRICK DO Unavailable Unavailable MARYCHUY, F KENDRICK DO Unavailable Unavailable MARYCHUY, F KENDRICK DO Unavailable Unavailable MARYCHUY, F KENDRICK DO Unavailable Unavailable MARYCHUY, F KENDRICK DO Unavailable Unavailable MARYCHUY, F KENDRICK DO Unavailable Unavailable MARYCHUY, F KENDRICK DO Unavailable Unavailable MARYCHUY, F KENDRICK DO Unavailable Unavailable MARYCHUY, F KENDRICK DO Unavailable Unavailable MARYCHUY, F KENDRICK DO Unavailable Unavailable MARYCHUY, F KENDRICK DO Unavailable Unavailable MARYCHUY, F KENDRICK DO Unavailable Unavailable MARYCHUY, F KENDRICK DO Unavailable Unavailable MARYCHUY, F KENDRICK DO Unavailable Unavailable MARYCHUY, F KENDRICK DO Unavailable Unavailable Vic, M Beth MD Unavailable Unavailable Vic, M Beth MD Unavailable Unavailable Vic, M Beth MD Unavailable Unavailable Vic, M Beth MD Unavailable Unavailable Vic, M Beth MD Unavailable Unavailable Vic, M Beth MD Unavailable Unavailable Vic, M Beth MD Unavailable Unavailable Vic, M Beth MD Unavailable Unavailable Vic, M Beth MD Unavailable Unavailable Vic, M Beth MD Unavailable Unavailable Vic, M Beth MD Unavailable Unavailable Vic, M Beth MD Unavailable Unavailable Vic, M Beth MD Unavailable Unavailable Re-disclosure Warning The records that you are about to access may contain information from federally-assisted alcohol or drug abuse programs. If such information is present, then the following federally mandated warning applies: This information has been disclosed to you from records protected by federal confidentiality rules (42 CFR part 2). The federal rules prohibit you from making any further disclosure of this information unless further disclosure is expressly permitted by the written consent of the person to whom it pertains or as otherwise permitted by 42 CFR part 2. A general authorization for the release of medical or other information is NOT sufficient for this purpose. The Federal rules restrict any use of the information to criminally investigate or prosecute any alcohol or drug abuse patient.The records that you are about to access may contain highly sensitive health information, the redisclosure of which is protected by Article 27-F of the [facility] Public Health law. If you continue you may have access to information: Regarding HIV / AIDS; Provided by facilities licensed or operated by the [facility] Office of Mental Health; or Provided by the [facility] Office for People With Developmental Disabilities. If such information is present, then the following [facility] mandated warning applies: This information has been disclosed to you from confidential records which are protected by state law. State law prohibits you from making any further disclosure of this information without the specific written consent of the person to whom it pertains, or as otherwise permitted by law. Any unauthorized further disclosure in violation of state law may result in a fine or alf sentence or both. A general authorization for the release of medical or other information is NOT sufficient authorization for further disc losure. Allergies and Adverse Reactions Type Description Substance Reaction Status Data Source(s ) Drug allergy ADVIL ADVIL ITCHING [facility] Drug allergy AMBIEN AMBIEN Hallucinations [facility] Drug allergy FENOFIBRATE FENOFIBRATE RASH, SKIN PEELS Car [facility] Drug allergy prednisone prednisone weight gain [place] [facility] Drug allergy TRAMADOL TRAMADOL HALLUCINATION [facility] BRANDNAME NAPROSYN NAPROSYN ITCHING [facility] BRANDNAME LUNESTA LUNESTA HALLUCINATION [facility] Drug allergy Lunesta Eszopiclone Unknown Active eCW1 ([facility]) Drug allergy Ambien zolpidem Unknown Active eCW1 ([facility]) Drug allergy Fenofibrate Fenofibrate Unknown Active eCW1 ([facility]) Drug allergy Tramadol HCl Tramadol Unknown Active eCW1 ([facility]) Drug allergy Lactose Drug allergy Unknown Active eCW1 ([facility]) Encounters Encounter Providers Location Date Indications Data Source(s ) [place] [address] [facility] [address] 10/26/2020 12:00:00 AM EST eCW1 ([facility]) Outpatient Attender: Maria Luisa Coteeferrer: Maria Luisa Elizondo NP 10/25/2020 01:03:00 PM EST [facility] l Office Visit, Est Pt., Level 4 PC [address] [place] [address] 10/21/2020 12:00:00 AM EST eCW1 ([facility]) Outpatient Attender: PAULINO WOLFEConsultant: Maria Luisa Montana 10/12/2020 09:54:00 AM EST - 10/12/2020 10:54:[address] [facility] Unknown [address] [facility] [address] 10/10/2020 12:00:00 AM EST eCW1 ([facility]) [place] [address] [facility] [address] 09/23/2020 12:00:00 AM EST eCW1 ([facility]) [place] [address] [facility] [address] 09/22/2020 12:00:00 AM EST eCW1 ([facility]) Outpatient Attender: Maria Luisa Coteeferrer: Maria Luisa Elizondo AEROPHYSICIST 09/21/2020 08:55:00 [facility] [address] [facility] [address] 09/21/2020 12:00:00 AM EST eCW1 ([facility]) Outpatient Attender: Mandy cook FNPAttender: KIM PALOMINO MDConsultant: Maria Luisa Lynda AEROPHYSICIST 09/13/2020 09:16:00 AM EST - 09/15/2020 11:05:[address] [facility] Patient discharged. Outpatient Attender: Vijaya PABON Main office - [facility] 08/15/2020 12:30:00 PM EST [facility] ([facility], ) Unknown [address] [facility] [address] 08/10/2020 12:00:00 AM EST eCW1 ([facility]) Outpatient Attender: Maria Luisa Jaimeserr er: Moira Vargas MDConsultant: Maria Luisa Lynda AEROPHYSICIST 08/05/2020 10:10:00 AM EDT - 08/05/2020 11:10:[address] [facility] Outpatient Attender: Maria Luisa Elizondo NPReferrer: Maria Luisa Elizondo AEROPHYSICIST 08/02/2020 01:01:00 PM EDT - 08/02/2020 02:20:00 PM EDT [facility] Outpatient Attender: DEION ORTIZ NPConsultant: Maria Luisa Lynda AEROPHYSICIST 06/27/2020 10:48:00 AM EDT - 06/27/2020 10:48:[address] [facility] Emergency Attender: KARIN SNELLConsultant: Maria Luisa Arriaza P 06/15/2020 12:21:00 AM EDT - 06/15/2020 06:43:[address] [facility] Patient discharged. Outpatient Attender: PAULINO WOLFEConsultant: Maria Luisa Arriaza P 06/06/2020 09:51:00 AM EDT - 06/06/2020 10:51:[address] [facility] Inpatient Attender: ER PHYSICIANAttend er: Beth Potter MDAdmitter: Dipesh Pierre PT 05/23/2020 05:49:49 AM EDT [facility] facility) Attender: BRADEN KILPATRICK MDAttender: Beth Potter MDAdmitter: Beth Potter MDConsultant: Maria Luisa Elizondo 05/22/2020 11:56:00 AM EDT - 05/30/2020 03:06:00 PM EDT [facility] spital Inpatient Attender: Beth Potter MDAttender: LINDA MARIO N 05/22/2020 11:56:[address] [facility] Inpatient Attender: BRADEN KILPATRICK MDA ttender: Beth Potter MDAttender: Dipesh Pierre PTAttender: ER PHYSICIANAdmitter: Beth Potter MD 05/22/2020 09:22:00 AM EDT - 05/30/2020 03:06:00 PM EDT INTRACTABLE VOMITING [facility] INTRACTABLE VOMITING Patient discharged. Outpatient Referrer: PROVIDER SYSTEM IN [address] [place] [address] 05/22/2020 0 6:44:00 AM EDT [facility] vomiting, diarrhea Emergency Attender: KENDRICK NICKERSON DOConsultant: Maria Luisa Montana 05/22/2020 01:41:00 AM EDT - 05/22/2020 07:50:[address] [facility] Patient discharged. Outpatient Attender: Maria Luisa Elizondo NPReferrer: Maria Luisa Elizondo NP 05/18/2020 04:08:00 PM EDT - 05/18/2020 05:12:00 PM EDT [facility] Inpatient Attender: Mandy cook FNPAttender: Demetrice Whaley PAAttender: KENDRICK NICKERSON DOConsultant: Maria Luisa Elizondo NP 05/07/2020 08: 52:00 AM EDT - 05/13/2020 10:08:[address] [facility] Patient discharged. Outpatient Attender: Demetrice PABON 0 08:52:00 AM EDT - 05/09/2020 10:29:[address] [facility] Outpatient 04/27/2020 02:38:00 PM EDT [facility] Inpatient Attender: BRITTANY BERRIOS MDAtt ana: Demetrice Whaley PAConsultant: Maria Luisa Elizondo NP 04/25/2020 08:54:00 AM EDT - 04/29/2020 09:52:[address] [facility] Patient discharged. Outpatient 04/24/2020 12:15:00 PM EDT [facility] Outpatient Attender: Demetrice PABON 0 12:10:00 PM EDT - 04/25/2020 08:54:[address] [facility] Emergency Attender: BRITTANY BERRIOS MDConsultant: Maria Luisa Montana 04/21/2020 09:17:00 AM EDT - 04/21/2020 02:43:[address] [facility] Patient discharged. Outpatient Attender: Maria Luisa Aggarwal er: Moira Vargas MDConsultant: Maria Luisa Elizondo NP 04/19/2020 04:54:00 PM EDT - 04/20/2020 05:04:[address] [facility] Outpatient Attender: Qi Serna PAConsultant: Maria Luisa Elizondo NP 04/18/2020 09:32:[address] [facility] Outpatient Attender: Maria Luisa Coteeferrer: Maria Luisa Elizondo NP 04/12/2020 01:24:00 PM EDT [facility] Outpatient Attender: DANIEL BERGMAN MDConsultant: Maria Luisa garcias AEROPHYSICIST 04/04/2020 09:32:00 AM EDT - 04/04/2020 10:32:[address] [facility] Patient discharged. Office Visit Attender: Vijaya PABON Main office - [facility] n 03/30/2020 01:45:00 [facility] Outpatient Attender: DANIEL BERGMAN MD 03/29/2020 11:45: 00 AM EDT [facility] Outpatient Referrer: PIPPA ZARAGOZA MD 0 04:02:04 PM EDT Spinal stenosis, cervical region [facility] Spinal stenosis, cervical region Outpatient Attender: DANIEL RODRIGUEZ MD [id number] 03/24/2020 12:00:0 0 AM EDT [facility] Outpatient Referrer: PIPPA ZARAGOZA MD 03/24/2020 12:0 0:[address] [facility] Outpatient Attender: DANIEL BERGMAN MD 03/18/2020 02:33: [address] [facility] Inpatient Attender: DANIEL Thomson DAdmitter: DANIEL BERGMAN MDConsultant: DANIEL BERGMAN MD [id number] 03/16/2020 12:00:00 AM EDT - 03/17/2020 12:28:00 PM EDT [facility] aaa Patient discharged. Outpatient Attender: DEFAULT / GENE MOIZ / UNKNOWN PROVIDER ALIASES Attender: CHRISTOPHER ANDERSONeferrer: DANIEL BERGMAN MD [id number] 03/14/2020 12:00:00 AM EDT - 03/15/2020 12:00:00 AM EDT Encounter for other preprocedural examination [facility] Encounter for other preprocedural examin ation Outpatient Referrer: DANIEL BERGMAN MD 03/13/2020 12:00: 00 AM [facility] Rheumatology [address] [place] [phone] 03/03/2020 12:00:00 AM EDT eCW1 ([facility]ly [facility]) Outpatient Attender: DOLORES Leeerrer: DANIEL GROSS MD 03/02/2020 12:00:00 AM EDT [facility] pretest Outpatient Attender: DANIEL RODRIGUEZ MD [id number] 12:00:00 AM EDT - 02/18/2020 04:26:34 PM EDT Spondylosis without myelopathy or radicu lopathy, cervical region [facility] Spondylosis without myelopathy or radicu lopathy, cervical region [facility] Rheumatology [address] [place] [phone] 01/27/2020 12:00:00 AM EDT eCW1 ([facility]ly [facility]) [facility] Rheumatology [address] [place] [phone] 12/28/2019 12:00:00 AM EDT eCW1 ([facility]) Outpatient Attender: DANIEL RODRIGUEZ MD 12/24/2019 12:00:0 0 AM EDT [facility] Outpatient Attender: Orin PABON- CAttender: Kayla Syed MDReferrer: DANIEL BERGMAN MD [id number] 12/22/2019 12:39:11 PM EDT Encounter for other preprocedural examination [facility] Encounter for other preprocedural examin ation Outpatient Attender: PAULINO WOLFEConsultant: Maria Luisa Montana 12/16/2019 09:30:00 AM EDT - 12/16/2019 10:30:[address] [facility] Outpatient Attender: DANIEL BERGMAN MD 12/15/2019 01:45: 00 PM EDT [facility] Outpatient Attender: DANIEL RODRIGUEZ MD 12/03/2019 12:00:0 0 AM [facility] Outpatient Attender: DANIEL RODRIGUEZ MD 11/12/2019 12:00:0 0 AM [facility] Outpatient Attender: Jakob Vail MD 11/06/2019 12:00:00 AM [facility] Outpatient Attender: PAULINO Arnettltant: Maria Luisa Montana 11/04/2019 09:34:00 AM EST - 11/04/2019 10:34:[address] [facility] Rheumatology [address] [place] [phone] 10/28/2019 12:00:00 AM EST eCW1 ([facility]) Outpatient Attender: Maria Luisa Coteeferrer: Maria Luisa Elizondo NP 10/19/2019 09:44:00 AM EST - 10/19/2019 10:41:00 AM EST [facility] Immunizations Vaccine Date Status Description Data Source(s) Shingrix 10/25/2020 12:00:00 AM EST completed [facility] Shingrix 08/02/2020 12:00:00 AM EDT completed [facility] Shingrix 08/02/2020 12:00:00 AM EDT completed [facility] IIV3. This is one of two codes replacing CVX 15, which is being retired. 06/28/2020 12:00:00 AM EDT completed influenza vaccine, inactivated [facility] IIV3. This is one of two codes replacing CVX 15, which is being retired. 06/28/2020 12:00:00 AM EDT completed influenza vaccine, inactivated [facility] INFLUENZA VACCINE QUADRIVALENT (65 YR UP)/MF59 C.1/PF 06/28/2020 12:00:00 AM EDT completed [facility] Medications Medication Brand Name Start Date Product Form Dose Route Admi nistrative Instructions Pharmacy Instructions Status Indications Reaction Description Data Source(s) pantoprazole 40 MG Delayed Release Oral Tablet PANTOPRAZOLE SODIUM 11/01/2020 12:00:00 AM EST tablet,delayed release (DR/EC) 90 T LEYDI ONE TABLET BY MOUTH EVERY MORNING 30 MINUTES BEFORE BREAKFAST X 3 MONTHS THEN TAPER OFF TAKE ONE TABLET BY MOUTH EVERY MORNING 30 MINUTES BEFORE BREAKFAST X 3 MONTHS THEN TAPER OFF SOLD: 11/11/2020 [facility] 50-300-40 mg 10/27/2020 12:00:00 AM EST capsule 120 TAKE ONE CAPSULE BY MOUTH EVERY 6 HOURS NEEDED FOR PAIN TAKE ONE CAPSULE BY MOUTH EVERY 6 HOURS NEEDED FOR PAIN SOLD: 10/28/2020 [facility] Shingrix (PF) 50 mcg/0.5 mL intramuscular suspension, kit (v aricella-zoster 10/25/2020 01:03:34 PM EST 0.5 ML completed [facility] 2.5 mg 10/23/2020 12:00:00 AM EST tablet 35 TAKE 7 TABLETS BY MOUTH ONCE WEEKLY TAKE 7 TABLETS BY MOUTH ONCE WEEKLY SOLD: 10/24/2020 [facility] 1 mg 10/22/2020 12:00:00 AM EST tablet 60 TAKE TWO TABLETS BY MOUTH EVERY DAY TAKE TWO TABLETS BY MOUTH EVERY DAY SOLD: 10/24/2020 [facility] 50 mg 10/13/2020 12:00:00 AM EST tablet 30 TAKE ONE TABLET BY MOUTH EVERY DAY TAKE ONE TABLET BY MOUTH EVERY DAY SOLD: 10/24/2020 [facility] Trazodone Hydrochloride 50 MG Oral Tablet Trazodone 2020 07:35:17 AM EST [address] [facility] 50-325-40 mg 09/26/2020 12:00:00 AM EST tablet 90 TAKE ONE TABLET BY MOUTH EVERY 8 HOURS NEEDED FOR PAIN TAKE ONE TABLET BY MOUTH EVERY 8 HOURS A S NEEDED FOR PAIN SOLD: 09/28/2020 [facility] Acetaminophen 300 MG / butalbital 50 MG / Caffeine 40 MG Oral Capsule [Fioricet] Fioricet 50-300-40 MG Fioricet 50-300-40 MG 09/22/2020 12:00:00 AM EST 1.0 {capsule_as_needed} active Fioricet 50- 300-40 MG eCW1 ([facility]) Acetaminophen 300 MG / butalbital 50 MG / Caffeine 40 MG Oral Capsule [Fioricet] Fioricet 50-300-40 MG Fioricet 50-300-40 MG 09/22/2020 12:00:00 AM EST 1.0 {capsule_as_needed} active Fioricet 50- 300-40 MG eCW1 ([facility]) Acetaminophen 300 MG / butalbital 50 MG / Caffeine 40 MG Oral Capsule [Fioricet] Fioricet 50-300-40 MG Fioricet 50-300-40 MG 09/22/2020 12:00:00 AM EST 1.0 {capsule_as_needed} active Fioricet 50- 300-40 MG eCW1 ([facility]) Acetaminophen 300 MG / butalbital 50 MG / Caffeine 40 MG Oral Capsule [Fioricet] Fioricet 50-300-40 MG Fioricet 50-300-40 MG 09/22/2020 12:00:00 AM EST 1.0 {capsule_as_needed} active Fioricet 50- 300-40 MG eCW1 ([facility]) Acetaminophen 300 MG / butalbital 50 MG / Caffeine 40 MG Oral Capsule [Fioricet] Fioricet 50-300-40 MG Fioricet 50-300-40 MG 09/22/2020 12:00:00 AM EST 1.0 {capsule_as_needed} active Fioricet 50- 300-40 MG eCW1 ([facility]) 500 mg 09/15/2020 12:00:00 AM EST tablet 4 TAKE ONE TABLET BY MOUTH TWICE A DAY TAKE ONE TABLET BY MOUTH TWICE A DAY SOLD: 09/15/2020 [facility] 20 mEq 08/23/2020 12:00:00 AM EST tablet extended release 90 TAKE ONE TABLET BY MOUTH AT BEDTIME TAKE ONE TABLET BY MOUTH AT BEDTIME SOLD: 08/24/2020 [facility] Potassium Chloride 20 MEQ Extended Release Oral Tablet Potas sium Chloride 08/22/2020 10:50:02 AM EST 20 MEQ active [facility] Shingrix (PF) 50 mcg/0.5 mL intramuscular suspension, kit (v aricella-zoster 08/02/2020 01:01:16 PM EDT 0.5 ML completed [facility] Shingrix (PF) 50 mcg/0.5 mL intramuscular suspension, kit (v aricella-zoster 08/02/2020 01:01:16 PM EDT 0.5 ML completed [facility] 100 mg 07/26/2020 12:00:00 AM EDT tablet 30 TAKE ONE TABLET BY MOUTH EVERY DAY TAKE ONE TABLET BY MOUTH EVERY DAY SOLD: 10/24/2020 [facility] 100 mg 07/26/2020 12:00:00 AM EDT tablet 30 TAKE ONE TABLET BY MOUTH EVERY DAY TAKE ONE TABLET BY MOUTH EVERY DAY SOLD: 07/29/2020 [facility] 100 mg 07/26/2020 12:00:00 AM EDT tablet 30 TAKE ONE TABLET BY MOUTH EVERY DAY TAKE ONE TABLET BY MOUTH EVERY DAY SOLD: 09/05/2020 [facility] Metoprolol Tartrate 100 MG Oral Tablet Metoprolol Tartrate 1 08:12:06 AM EDT 0 active [facility] Metoprolol Tartrate 100 MG Oral Tablet Metoprolol Tartrate 1 08:12:06 AM EDT 0 active [facility] 5 mg 07/25/2020 12:00:00 AM EDT tablet 120 TAKE 1 TO 2 TABLETS BY MOUTH TWO TIMES A DAY NEEDED TAKE 1 TO 2 TABLETS BY MOUTH TWO TIMES A DAY NEEDED SOLD: 07/29/2020 [facility] 5 mg 07/25/2020 12:00:00 AM EDT tablet 120 TAKE 1 TO 2 TABLETS BY MOUTH TWO TIMES A DAY NEEDED TAKE 1 TO 2 TABLETS BY MOUTH TWO TIMES A DAY NEEDED SOLD: 09/05/2020 [facility] 5 mg 07/25/2020 12:00:00 AM EDT tablet 120 TAKE 1 TO 2 TABLETS BY MOUTH TWO TIMES A DAY NEEDED TAKE 1 TO 2 TABLETS BY MOUTH TWO TIMES A DAY NEEDED SOLD: 10/24/2020 [facility] 2.5 mg 06/29/2020 12:00:00 AM EDT tablet 24 TAKE SIX TABLETS BY MOUTH EVERY WEEK TAKE SIX TABLETS BY MOUTH EVERY WEEK SOLD: 07/08/2020 [facility] 2.5 mg 06/29/2020 12:00:00 AM EDT tablet 24 TAKE SIX TABLETS BY MOUTH EVERY WEEK TAKE SIX TABLETS BY MOUTH EVERY WEEK SOLD: 08/05/2020 [facility] 2.5 mg 06/29/2020 12:00:00 AM EDT tablet 24 TAKE SIX TABLETS BY MOUTH EVERY WEEK TAKE SIX TABLETS BY MOUTH EVERY WEEK SOLD: 09/05/2020 [facility] 50 mg 06/28/2020 12:00:00 AM EDT tablet 30 TAKE ONE TABLET BY MOUTH EVERY DAY TAKE ONE TABLET BY MOUTH EVERY DAY SOLD: 08/09/2020 [facility] 50 mg 06/28/2020 12:00:00 AM EDT tablet 30 TAKE ONE TABLET BY MOUTH EVERY DAY TAKE ONE TABLET BY MOUTH EVERY DAY SOLD: 07/08/2020 [facility] 50 mg 06/28/2020 12:00:00 AM EDT tablet 30 TAKE ONE TABLET BY MOUTH EVERY DAY TAKE ONE TABLET BY MOUTH EVERY DAY SOLD: 09/15/2020 [facility] Trazodone Hydrochloride 50 MG Oral Tablet Trazodone 2019 09:58:35 AM EDT [address] [facility] Trazodone Hydrochloride 50 MG Oral Tablet Trazodone 2019 09:58:35 AM EDT 0 completed [facility] 4 mg 06/15/2020 12:00:00 AM EDT tablet 16 TAKE ONE TABLET BY MOUTH FOUR TIMES A DAY NEEDED TAKE ONE TABLET BY MOUTH FOUR TIMES A DAY NEEDED SO LD: 06/21/2020 [facility] pantoprazole 40 MG Delayed Release Oral Tablet PANTOPRAZOLE SODIUM 05/30/2020 12:00:00 AM EDT tablet,delayed release (DR/EC) 60 T LEYDI ONE TABLET BY MOUTH TWICE A DAY TAKE ONE TABLET BY MOUTH TWICE A DAY SOLD: 05/30/2020 [facility] 1 mg 05/19/2020 12:00:00 AM EDT tablet 90 TAKE ONE TABLET BY MOUTH EVERY DAY TAKE ONE TABLET BY MOUTH EVERY DAY SOLD: 05/30/2020 [facility] 1 mg 05/19/2020 12:00:00 AM EDT tablet 90 TAKE ONE TABLET BY MOUTH EVERY DAY TAKE ONE TABLET BY MOUTH EVERY DAY SOLD: 09/05/2020 [facility] atorvastatin 20 MG Oral Tablet Atorvastatin Atorvastatin 05/18/2020 04:54:33 PM EDT 20 MG active [facility] atorvastatin 20 MG Oral Tablet Atorvastatin Atorvastatin 05/18/2020 04:54:33 PM EDT 20 MG active [facility] atorvastatin 20 MG Oral Tablet Atorvastatin Atorvastatin 05/18/2020 04:54:33 PM EDT 20 MG active [facility] Folic Acid 1 MG Oral Tablet Folic Acid 05/18/2020 04:53:29 PM EDT 1 MG active [facility] Folic Acid 1 MG Oral Tablet Folic Acid 05/18/2020 04:53:29 PM EDT 1 MG active [facility] Folic Acid 1 MG Oral Tablet Folic Acid 05/18/2020 04:53:29 PM EDT 1 MG active [facility] prednisolone 5 MG Oral Tablet Prednisolone Prednisolone 05/18/2020 04:34:30 PM EDT 5 MG active [facility] prednisolone 5 MG Oral Tablet Prednisolone Prednisolone 05/18/2020 04:34:30 PM EDT 5 MG active [facility] prednisolone 5 MG Oral Tablet Prednisolone Prednisolone 05/18/2020 04:34:30 PM EDT 5 MG active [facility] Potassium Chloride 20 MEQ Extended Release Oral Tablet Potas sium Chloride 05/18/2020 04:33:27 PM EDT 20 MEQ completed [facility] Potassium Chloride 20 MEQ Extended Release Oral Tablet Potas sium Chloride 05/18/2020 04:33:27 PM EDT 20 MEQ [facility] Potassium Chloride 20 MEQ Extended Release Oral Tablet Potas sium Chloride 05/18/2020 04:33:27 PM EDT 20 MEQ [facility] POLYETHYLENE GLYCOL 3350 142 MG/ML Oral Solution Polyethylene Glycol 3350 (Miralax) 17 gram/dose powder Polyethylene Glycol 3350 (Miralax) 17 gr am/dose powder 05/18/2020 04:32:16 PM EDT 17 GM active [facility] POLYETHYLENE GLYCOL 3350 142 MG/ML Oral Solution Polyethylene Glycol 3350 (Miralax) 17 gram/dose powder Polyethylene Glycol 3350 (Miralax) 17 gr am/dose powder 05/18/2020 04:32:16 PM EDT 17 GM [facility] POLYETHYLENE GLYCOL 3350 142 MG/ML Oral Solution Polyethylene Glycol 3350 (Miralax) 17 gram/dose powder Polyethylene Glycol 3350 (Miralax) 17 gr am/dose powder 05/18/2020 04:32:16 PM EDT 17 GM [facility] Metoclopramide 10 MG Oral Tablet Metoclopramide Hcl Metoclop ramide Hcl 05/18/2020 04:30:59 PM EDT 10 MG [facility] Metoclopramide 10 MG Oral Tablet Metoclopramide Hcl Metoclop ramide Hcl 05/18/2020 04:30:59 PM EDT 10 MG [facility] Metoclopramide 10 MG Oral Tablet Metoclopramide Hcl Metoclop ramide Hcl 05/18/2020 04:30:59 PM EDT 10 MG [facility] Methotrexate 2.5 MG Oral Tablet Methotrexate Sodium Methotre xate Sodium 05/18/2020 04:30:19 PM EDT 15 MG [facility] Methotrexate 2.5 MG Oral Tablet Methotrexate Sodium Methotre xate Sodium 05/18/2020 04:30:19 PM EDT 15 MG [facility] Methotrexate 2.5 MG Oral Tablet Methotrexate Sodium Methotre xate Sodium 05/18/2020 04:30:19 PM EDT 15 MG [facility] Lactobacillus Acidophilus (Acidophilus) capsule 2019 04:29:36 PM EDT 2000 MMU CELLS [facility] Lactobacillus Acidophilus (Acidophilus) capsule 2019 04:29:36 PM EDT 2000 MMU CELLS active [facility] Lactobacillus Acidophilus (Acidophilus) capsule 2019 04:29:36 PM EDT 2000 MMU CELLS [facility] 10 mg 05/13/2020 12:00:00 AM EDT tablet 90 TAKE ONE TABLET BY MOUTH EVERY 8 HOURS NEEDED TAKE ONE TABLET BY MOUTH EVERY 8 HOURS NEEDED SOLD: 05/15/2020 [facility] 100 mg 04/22/2020 12:00:00 AM EDT tablet 30 TAKE ONE TABLET BY MOUTH EVERY DAY TAKE ONE TABLET BY MOUTH EVERY DAY SOLD: 05/01/2020 [facility] 100 mg 04/22/2020 12:00:00 AM EDT tablet 30 TAKE ONE TABLET BY MOUTH EVERY DAY TAKE ONE TABLET BY MOUTH EVERY DAY SOLD: 06/28/2020 [facility] 4 mg 04/22/2020 12:00:00 AM EDT tablet,disintegrating 2 0 DISSOLVE 1 TABLET UNDER THE TONGUE NEEDED FOR NAUSEA AND VOMITING DISSOLVE 1 TABLET UNDER THE TONGUE NEEDED FOR NAUSEA AND VOMITING SOLD: 04/22/2020 [facility] 100 mg 04/22/2020 12:00:00 AM EDT tablet 30 TAKE ONE TABLET BY MOUTH EVERY DAY TAKE ONE TABLET BY MOUTH EVERY DAY SOLD: 05/30/2020 [facility] Metoprolol Tartrate 100 MG Oral Tablet Metoprolol Tartrate 0 04/21/2020 07:19:46 AM EDT 0 active [facility] Metoprolol Tartrate 100 MG Oral Tablet Metoprolol Tartrate 0 04/21/2020 07:19:46 AM EDT 0 completed [facility] Metoprolol Tartrate 100 MG Oral Tablet Metoprolol Tartrate 0 04/21/2020 07:19:46 AM EDT 0 completed [facility] atorvastatin 20 MG Oral Tablet Atorvastatin Atorvastatin 03/24/2020 11:18:35 AM EDT 20 MG completed [facility] atorvastatin 20 MG Oral Tablet Atorvastatin Atorvastatin 03/24/2020 11:18:35 AM EDT 20 MG completed [facility] atorvastatin 20 MG Oral Tablet Atorvastatin Atorvastatin 03/24/2020 11:18:35 AM EDT 20 MG completed [facility] atorvastatin 20 MG Oral Tablet Atorvastatin Atorvastatin 03/24/2020 11:18:35 AM EDT 20 MG active [facility] 50 mg 03/22/2020 12:00:00 AM EDT tablet 30 TAKE ONE TABLET BY MOUTH EVERY DAY TAKE ONE TABLET BY MOUTH EVERY DAY SOLD: 05/01/2020 [facility] 50 mg 03/22/2020 12:00:00 AM EDT tablet 30 TAKE ONE TABLET BY MOUTH EVERY DAY TAKE ONE TABLET BY MOUTH EVERY DAY SOLD: 05/30/2020 [facility] 50 mg 03/22/2020 12:00:00 AM EDT tablet 30 TAKE ONE TABLET BY MOUTH EVERY DAY TAKE ONE TABLET BY MOUTH EVERY DAY SOLD: 03/25/2020 [facility] Methotrexate 2.5 MG Oral Tablet methotrexate tablet 15 mg methotrexate tablet 15 mg 03/21/2020 09:00:00 AM EDT 15 mg Oral active 15 mg, Oral, Every 7 days, First dose on Sat03/21/20 at 0900, For 30 days [facility] Medication administered onsite Trazodone Hydrochloride 50 MG Oral Tablet Trazodone 2019 07:19:16 AM EDT 0 completed [facility] Trazodone Hydrochloride 50 MG Oral Tablet Trazodone 2019 07:19:16 AM EDT 0 completed [facility] Trazodone Hydrochloride 50 MG Oral Tablet Trazodone 2019 07:19:16 AM EDT [address] [facility] Trazodone Hydrochloride 50 MG Oral Tablet Trazodone 2019 07:19:16 AM EDT [address] [facility] Prednisone 5 MG Oral Tablet predniSONE (DELTASONE) tab let 5 mg predniSONE (DELTASONE) tablet 5 mg 03/17/2020 09:00:00 AM EDT 5 mg Oral active 5 mg, Oral, Every morning, First dose on Miguelina 03/17/20 at 0900, For 30 days
Take with food.
[facility] Medication administered onsite 0.4 ML Enoxaparin sodium 100 MG/ML Prefi lled Syringe enoxaparin sodium (LOVENOX) injection 40 mg enoxaparin sodium (LOVENOX) injection 40 mg 03/17/2020 09:00:00 AM EDT 40 mg Subcutaneous active 40 mg, Subcutaneous, Daily Standard, First dose on Miguelina 03/17/20 at 0900, For 30 days [facility] Medication administered onsite tiotropium - olodaterol (STIOLTO RESPIMAT) inhalation spray 2 puff [id number] 03/17/2020 09:00:00 AM EDT 2 {puff} Inhalation active 2 puff, Inhalation, Daily Standard, First dose on Miguelina 03/17/20 at 0900, For 30 days [facility] Medication administered onsite atorvastatin 20 MG Oral Tablet atorvastatin (LIPITOR) tablet 20 mg atorvastatin (LIPITOR) tablet 20 mg 03/17/2020 09:00:00 AM EDT 20 mg Oral active 20 mg, Oral, Daily Standard, First dose on Miguelina 03/17/20 at 0900, For 30 days [facility] Medication administered onsite 4 ML Labetalol hydrochloride 5 MG/ML [facility] labetalol (TRANDATE) injection 10 mg labetalol (TRANDATE) injection 10 mg 03/17/2020 04:00:00 AM EDT 10 mg Intravenous completed 10 mg, Intrav enous, Once, [facility] 03/17/20 at 0400, For 1 dose [facility] Medication administered onsite Trazodone Hydrochloride 50 MG Oral Tablet trazodone (D ESYREL) tablet 50 mg trazodone (DESYREL) tablet 50 mg 03/16/2020 10:00:00 PM EDT 50 mg Oral active 50 mg, Oral, Nightly, First dose on Sat03/16/20 at 2200, For 30 days [facility] Medication administered onsite Metoprolol Tartrate 50 MG Oral Tablet metoprolol (LOPR ESSOR) tablet 50 mg metoprolol (LOPRESSOR) tablet 50 mg 03/16/2020 09:00:00 PM EDT 50 mg Oral active 50 mg, Oral, 2 Times Daily, First dose on Sat03/16/20 at 2100, For 30 days [facility] Medication administered onsite Cefazolin 1000 MG Injection ceFAZolin (ANCEF) IVPB 1 g in dextrose 5 % (premix) ceFAZolin (ANCEF) IVPB 1 g in dextrose 5 % (premix) 03/16/2020 06:00:00 PM EDT 1 g Intravenous completed 1 g, Intra venous, Administer over 30 Minutes, Every 8 hours, First dose on Sat03/16/20 at 1800, For 16 hours
Kefzol. Run-in over 0.5 hrs. Rate 100 mL/hr.
[facility] Medication administered onsite oxyCODONE (ROXICODONE) immediate release tablet 5 mg 03/16/2020 02:00:40 PM EDT 5 mg Oral active [Order 1 Start] Name: oxyCODONE (ROXICODONE) immediate release tablet 5 mg Signed Summary: 5 mg, Oral, Every 4 hours PRN, Severe Pain (Pain Scale Score 7-10), Starting Sat03/16/20 at 1400, For 3 da ys
Oxycodone immediate release is limited to 10 mg per dose. Higher doses ( only) require Pain Service consultation and approval.
[Order 1 End] [Order 2 Start] Name: oxyCODONE (ROXICODONE) immediate release tablet 2.5 mg Signed Lara mmary: 2.5 mg, Oral, Every 4 hours PRN, Moderate Pain (Pain Scale Score 4-6), Starting Sat03/16/20 at 1400, For 3 days
Oxycodone immediate release is limited to 10 mg per dose. Higher doses ( only) require Pain Service consultation and approval.
[Order 2 End] [facility] Medication administered onsite fentaNYL (SUBLIMAZE) (PF) injection 12.5 mcg [id number] 03/16/2020 02:00:40 PM EDT 12.5 ug Intravenous active 12.5 mcg, Intravenous, Every 2 hours PRN, breakthrough pain, Starting Sat03/16/20 at 1400, For 3 days [facility] Medication administered onsite Acetaminophen 325 MG Oral Tablet acetaminophen (TYLENO L) tablet 500 mg acetaminophen (TYLENOL) tablet 500 mg 03/16/2020 02:00:39 PM EDT 50 0 mg Oral active 500 mg, Oral, E very 6 hours PRN, Pain, Starting Sat03/16/20 at 1400, For 3 days
Maximum dose of acetaminophen is 3000 mg from all sources in 24 hours.
[facility] Medication administered onsite ondansetron (ZOFRAN) injection 4 mg [id number] 03/16/2020 02:00:3 4 PM EDT 4 mg Intravenous active 4 mg, In travenous, Every 8 hours PRN, Nausea, Vomiting, Starting Sat03/16/20 at 1400, For 30 days [facility] Medication administered onsite Hydralazine Hydrochloride 20 MG/ML Injec table Solution hydrALAZINE (APRESOLINE) injection 10 mg hydrALAZINE (APRESOLINE) injection 10 mg 03/16/2020 01 :00:00 PM EDT 10 mg Intravenous completed 10 mg, Intravenous, Once, Sat03/16/20 at 1300, For 1 dose, Recovery
Dilute in 25-50 ml normal saline. Administer over 30 minutes.
[facility] Medication administered onsite fentaNYL (SUBLIMAZE) (PF) injection 25 mcg [id number] 03/16/2020 10:24:22 AM EDT 25 ug Intravenous aborted 25 m cg, Intravenous, Every 5 min PRN, Moderate Pain (Pain Scale Score 4-6), Starting Sat03/16/20 at 1024, For 10 doses, Recovery [facility] Medication administered onsite 5 mg 03/07/2020 12:00:00 AM EDT tablet 120 TAKE 1-2 TABLETS BY MOUTH TWO TIMES A DAY NEEDED TAKE 1-2 TABLETS BY MOUTH TWO TIMES A DAY NEEDED SO LD: 05/13/2020 [facility] 5 mg 03/07/2020 12:00:00 AM EDT tablet 120 TAKE 1-2 TABLETS BY MOUTH TWO TIMES A DAY NEEDED TAKE 1-2 TABLETS BY MOUTH TWO TIMES A DAY NEEDED SO LD: 03/08/2020 [facility] 5 mg 03/07/2020 12:00:00 AM EDT tablet 120 TAKE 1-2 TABLETS BY MOUTH TWO TIMES A DAY NEEDED TAKE 1-2 TABLETS BY MOUTH TWO TIMES A DAY NEEDED SO LD: 06/14/2020 [facility] 5 mg 03/07/2020 12:00:00 AM EDT tablet 120 TAKE 1-2 TABLETS BY MOUTH TWO TIMES A DAY NEEDED TAKE 1-2 TABLETS BY MOUTH TWO TIMES A DAY NEEDED SO LD: 04/08/2020 [facility] 2.5 mg 01/27/2020 12:00:00 AM EDT tablet 76 TAKE 6 TABLETS BY MOUTH ONCE A WEEK TAKE 6 TABLETS BY MOUTH ONCE A WEEK SOLD: 01/27/2020 [facility] 100 mg 01/19/2020 12:00:00 AM EDT tablet 30 TAKE ONE TABLET BY MOUTH EVERY DAY TAKE ONE TABLET BY MOUTH EVERY DAY SOLD: 01/21/2020 [facility] 100 mg 01/19/2020 12:00:00 AM EDT tablet 30 TAKE ONE TABLET BY MOUTH EVERY DAY TAKE ONE TABLET BY MOUTH EVERY DAY SOLD: 03/25/2020 [facility] 100 mg 01/19/2020 12:00:00 AM EDT tablet 30 TAKE ONE TABLET BY MOUTH EVERY DAY TAKE ONE TABLET BY MOUTH EVERY DAY SOLD: 02/24/2020 [facility] Metoprolol Tartrate 100 MG Oral Tablet Metoprolol Tartrate 0 01/18/2020 12:39:22 PM EDT 100 MG completed [facility] Metoprolol Tartrate 100 MG Oral Tablet Metoprolol Tartrate 0 01/18/2020 12:39:22 PM EDT 100 MG completed [facility] Metoprolol Tartrate 100 MG Oral Tablet Metoprolol Tartrate 0 01/18/2020 12:39:22 PM EDT 100 MG active [facility] Metoprolol Tartrate 100 MG Oral Tablet Metoprolol Tartrate 0 01/18/2020 12:39:22 PM EDT 100 MG completed [facility] Methotrexate 2.5 MG Oral Tablet Methotrexate 2.5 MG Oral Tab let 12/21/2019 12:00:00 AM EDT 15 mg Oral active Take 15 mg by mouth once a week [facility] Trazodone Hydrochloride 50 MG Oral Tablet Trazodone 2019 10:53:21 AM EDT 50 MG completed [facility] Trazodone Hydrochloride 50 MG Oral Tablet Trazodone 2019 10:53:21 AM EDT 50 MG completed [facility] Trazodone Hydrochloride 50 MG Oral Tablet Trazodone 2019 10:53:21 AM EDT 50 MG completed [facility] Trazodone Hydrochloride 50 MG Oral Tablet Trazodone 2019 10:53:21 AM EDT 50 MG completed [facility] Trazodone Hydrochloride 50 MG Oral Table t traZODone HCl 50 MG Oral Tablet (DESYREL) traZODone HCl 50 MG Oral Tablet (DESYREL) 12/14/2019 12:00:0 0 AM EDT 50 mg Oral active Take 50 mg by mo [facility] nightly [facility] 50 mg 12/14/2019 12:00:00 AM EDT tablet 30 TAKE ONE TABLET BY MOUTH EVERY DAY TAKE ONE TABLET BY MOUTH EVERY DAY SOLD: 01/13/2020 [facility] 50 mg 12/14/2019 12:00:00 AM EDT tablet 30 TAKE ONE TABLET BY MOUTH EVERY DAY TAKE ONE TABLET BY MOUTH EVERY DAY SOLD: 12/16/2019 [facility] 50 mg 12/14/2019 12:00:00 AM EDT tablet 30 TAKE ONE TABLET BY MOUTH EVERY DAY TAKE ONE TABLET BY MOUTH EVERY DAY SOLD: 02/24/2020 [facility] Prednisone 5 MG Oral Tablet predniSONE 5 MG Oral Table t (DELTASONE) predniSONE 5 MG Oral Tablet (DELTASONE) 11/28/2019 12:00:00 AM EST mg Oral active Take 5-10 mg by mouth Two times daily as needed [facility] 5 mg 10/29/2019 12:00:00 AM EST tablet 120 TAKE ONE TO TWO TABLETS BY MOUTH TWICE A DAY NEEDED TAKE ONE TO TWO TABLETS BY MOUTH TWICE A DAY NEEDED SOLD: 01/08/2020 [facility] 5 mg 10/29/2019 12:00:00 AM EST tablet 120 TAKE ONE TO TWO TABLETS BY MOUTH TWICE A DAY NEEDED TAKE ONE TO TWO TABLETS BY MOUTH TWICE A DAY NEEDED SOLD: 02/08/2020 [facility] 2.5 mg 10/29/2019 12:00:00 AM EST tablet 16 TAKE 4 TABLETS BY MOUTH ONCE WEEKLY TAKE 4 TABLETS BY MOUTH ONCE WEEKLY SOLD: 11/25/2019 [facility] 2.5 mg 10/29/2019 12:00:00 AM EST tablet 16 TAKE 4 TABLETS BY MOUTH ONCE WEEKLY TAKE 4 TABLETS BY MOUTH ONCE WEEKLY SOLD: 11/02/2019 [facility] 5 mg 10/29/2019 12:00:00 AM EST tablet 120 TAKE ONE TO TWO TABLETS BY MOUTH TWICE A DAY NEEDED TAKE ONE TO TWO TABLETS BY MOUTH TWICE A DAY NEEDED SOLD: 11/02/2019 [facility] 2.5 mg 10/29/2019 12:00:00 AM EST tablet 16 TAKE 4 TABLETS BY MOUTH ONCE WEEKLY TAKE 4 TABLETS BY MOUTH ONCE WEEKLY SOLD: 12/23/2019 [facility] 5 mg 10/29/2019 12:00:00 AM EST tablet 120 TAKE ONE TO TWO TABLETS BY MOUTH TWICE A DAY NEEDED TAKE ONE TO TWO TABLETS BY MOUTH TWICE A DAY NEEDED SOLD: 12/09/2019 [facility] Methotrexate 2.5 MG Oral Tablet Methotrexate Sodium 2. 5 MG Methotrexate Sodium 2.5 MG 10/28/2019 12:00:00 AM EST active Methotrexate Sodium 2.5 MG eCW1 ([facility]) Methotrexate 2.5 MG Oral Tablet Methotrexate Sodium 2. 5 MG Methotrexate Sodium 2.5 MG 10/28/2019 12:00:00 AM EST active Methotrexate Sodium 2.5 MG eCW1 ([facility]) Methotrexate 2.5 MG Oral Tablet Methotrexate Sodium 2. 5 MG Methotrexate Sodium 2.5 MG 10/28/2019 12:00:00 AM EST active 4 tablets as directed eCW1 ([facility]) Methotrexate 2.5 MG Oral Tablet Methotrexate Sodium 2. 5 MG Methotrexate Sodium 2.5 MG 10/28/2019 12:00:00 AM EST active Methotrexate Sodium 2.5 MG eCW1 ([facility]) Folic Acid 1 MG Oral Tablet Folic Acid 1 MG 10/28/2019 12:00:00 AM EST 1.0 {tablet} suspended Folic Acid 1 MG eCW1 ([facility]) Folic Acid 1 MG Oral Tablet Folic Acid 1 MG 10/28/2019 12:00:00 AM EST 1.0 {tablet} active Folic Acid 1 MG eCW1 ([facility]) Folic Acid 1 MG Oral Tablet Folic Acid 1 MG 10/28/2019 12:00:00 AM EST active 1 tablet eCW1 ([facility]) Methotrexate 2.5 MG Oral Tablet Methotrexate Sodium 2. 5 MG Methotrexate Sodium 2.5 MG 10/28/2019 12:00:00 AM EST active Methotrexate Sodium 2.5 MG eCW1 ([facility]) Methotrexate 2.5 MG Oral Tablet Methotrexate Sodium 2. 5 MG Methotrexate Sodium 2.5 MG 10/28/2019 12:00:00 AM EST active Methotrexate Sodium 2.5 MG eCW1 ([facility]) Folic Acid 1 MG Oral Tablet Folic Acid 1 MG 10/28/2019 12:00:00 AM EST 1.0 {tablet} suspended Folic Acid 1 MG eCW1 ([facility]) Methotrexate 2.5 MG Oral Tablet Methotrexate Sodium 2. 5 MG Methotrexate Sodium 2.5 MG 10/28/2019 12:00:00 AM EST active Methotrexate Sodium 2.5 MG eCW1 ([facility]) Folic Acid 1 MG Oral Tablet Folic Acid 1 MG 10/28/2019 12:00:00 AM EST 2.0 {tablet} active Folic Acid 1 MG eCW1 ([facility]) Folic Acid 1 MG Oral Tablet Folic Acid 1 MG 10/28/2019 12:00:00 AM EST 1.0 {tablet} suspended Folic Acid 1 MG eCW1 ([facility]) Methotrexate 2.5 MG Oral Tablet Methotrexate Sodium 2. 5 MG Methotrexate Sodium 2.5 MG 10/28/2019 12:00:00 AM EST active Methotrexate Sodium 2.5 MG eCW1 ([facility]) Prednisone 5 MG Oral Tablet PredniSONE 5 MG PredniSONE 5 MG 10/28/2019 12:00:00 AM EST active 1-2 tablet eCW1 ( [facility]) Folic Acid 1 MG Oral Tablet Folic Acid 1 MG 10/28/2019 12:00:00 AM EST 1.0 {tablet} suspended Folic Acid 1 MG eCW1 ([facility]) Folic Acid 1 MG Oral Tablet Folic Acid 1 MG 10/28/2019 12:00:00 AM EST 2.0 {tablet} active Folic Acid 1 MG eCW1 ([facility]) Acetaminophen 325 MG / Hydrocodone Iona trate 5 MG Oral Tablet Hydrocodone-Acetaminophen Hydrocodone-Acetaminophen 10/19/2019 10:32:26 AM EST [address] [facility] Acetaminophen 325 MG / Hydrocodone Iona trate 5 MG Oral Tablet Hydrocodone-Acetaminophen Hydrocodone-Acetaminophen 10/19/2019 10:32:26 AM EST [address] [facility] Acetaminophen 325 MG / Hydrocodone Iona trate 5 MG Oral Tablet Hydrocodone-Acetaminophen Hydrocodone-Acetaminophen 10/19/2019 10:32:26 AM EST 1 TAB completed [facility] Acetaminophen 325 MG / Hydrocodone Iona trate 5 MG Oral Tablet Hydrocodone-Acetaminophen Hydrocodone-Acetaminophen 10/19/2019 10:32:26 AM EST 1 TAB completed [facility] Acetaminophen 325 MG / Hydrocodone Iona trate 5 MG Oral Tablet Hydrocodone-Acetaminophen Hydrocodone-Acetaminophen 10/19/2019 10:32:26 AM EST 1 TAB completed [facility] Acetaminophen 325 MG / Hydrocodone Iona trate 5 MG Oral Tablet HYDROcodone- Acetaminophen 5-325 MG Oral Tablet (LORTAB) HYDROcodone-Acetaminophen 5-325 MG Oral Tablet (LORTAB) 10/19/2019 12:00:00 AM EST ab [facility] 5-325 mg 10/19/2019 12:00:00 AM EST tablet 21 TAKE ONE TABLET BY MOUTH THREE TIMES A DAY NEEDED FOR PAIN MAXIMUM DAILY DOSE = 3 TABLETS TAKE ONE TABLET BY MOUTH THREE TIMES A DAY NEEDED FOR PAIN MAXIMUM DAILY DOSE = 3 TABLETS SOLD: 10/19/2019 [facility] atorvastatin 20 MG Oral Tablet Atorvastatin Atorvastatin 08/31/2019 09:25:09 AM EST 20 MG completed [facility] atorvastatin 20 MG Oral Tablet Atorvastatin Atorvastatin 08/31/2019 09:25:09 AM EST 20 MG completed [facility] atorvastatin 20 MG Oral Tablet Atorvastatin Atorvastatin 08/31/2019 09:25:09 AM EST 20 MG completed [facility] atorvastatin 20 MG Oral Tablet Atorvastatin Atorvastatin 08/31/2019 09:25:09 AM EST 20 MG completed [facility] Potassium Chloride 20 MEQ Extended Release Oral Tablet Potas sium Chloride 08/31/2019 09:23:44 AM EST 40 MEQ completed [facility] Potassium Chloride 20 MEQ Extended Release Oral Tablet Potas sium Chloride 08/31/2019 09:23:44 AM EST 40 MEQ completed [facility] Potassium Chloride 20 MEQ Extended Release Oral Tablet Potas sium Chloride 08/31/2019 09:23:44 AM EST 40 MEQ completed [facility] Metoprolol Tartrate 100 MG Oral Tablet Metoprolol Tartrate 1 10/31/2018 09:22:50 AM EST 100 MG completed [facility] Metoprolol Tartrate 100 MG Oral Tablet Metoprolol Tartrate 1 10/31/2018 09:22:50 AM EST 100 MG completed [facility] Metoprolol Tartrate 100 MG Oral Tablet Metoprolol Tartrate 1 10/31/2018 09:22:50 AM EST 100 MG completed [facility] Metoprolol Tartrate 100 MG Oral Tablet Metoprolol Tartrate 1 10/31/2018 09:22:50 AM EST 100 MG completed [facility] Diclofenac Sodium 0.01 MG/MG Topical Gel Diclofenac Sodium 08/31/2019 09:22:12 AM EST 2 GM completed [facility] Diclofenac Sodium 0.01 MG/MG Topical Gel Diclofenac Sodium 08/31/2019 09:22:12 AM EST 2 GM completed [facility] Diclofenac Sodium 0.01 MG/MG Topical Gel Diclofenac Sodium 08/31/2019 09:22:12 AM EST 2 GM completed [facility] 100 mg 08/20/2019 12:00:00 AM EST tablet 30 TAKE ONE TABLET BY MOUTH EVERY DAY TAKE ONE TABLET BY MOUTH EVERY DAY SOLD: 12/23/2019 [facility] 100 mg 08/20/2019 12:00:00 AM EST tablet 30 TAKE ONE TABLET BY MOUTH EVERY DAY TAKE ONE TABLET BY MOUTH EVERY DAY SOLD: 11/20/2019 [facility] potassium chloride SA (K-DUR,KLOR-CON) 10 MEQ tablet [id number] 07/05/2019 12:00:00 AM EDT 20 meq Oral aborted Take 20 mEq by mouth [facility] Ondansetron 4 MG Oral Tablet ondansetron (ZOFRAN) 4 MG tablet ondansetron (ZOFRAN) 4 MG tablet 06/17/2019 12:00:00 AM EDT aborted every 8 (eight) hours as needed [facility] Famotidine 20 MG Oral Tablet famotidine (PEPCID) 20 MG tablet famotidine (PEPCID) 20 MG tablet 06/17/2019 12:00:00 AM EDT aborted every morning [facility] Tab-A-Eusebio/Beta Carotene Oral Tablet [id number] 1 {tbl} O ral aborted Take 1 tablet by mouth daily [facility] Acetaminophen 500 MG Oral Tablet Acetaminophen 500 MG Oral Tablet (TYLENOL) Acetaminophen 500 MG Oral Tablet (TYLENOL) 500 mg Oral aborted Take 500 mg by mouth every 6 (six) hours as needed for Pain [facility] atorvastatin 10 MG Oral Tablet atorvastatin (LIPITOR) 10 MG tablet atorvastatin (LIPITOR) 10 MG tablet 10 mg Oral aborted Take 10 mg by mouth nightly [facility] Multiple Vitamins-Minerals (MULTIVITAL EMMONAK PO) 1 {tbl} Oral aborted Take 1 tablet by mouth every mor gillian [facility] Acetaminophen 500 MG / Caffeine 65 MG Or al Tablet Acetaminophen-Caffeine (TENSION HEADACHE) 500-65 MG TABS Acetaminophen-Caffeine (TENSION HEADACHE ) 500- 65 MG TABS 2 {tbl} Oral aborted Take 2 tablets by mouth daily as needed [facility] ONDANSETRON HCL PO 4 mg Oral aborted Take 4 mg by mouth 12 tablet, q6h as needed [facility] Insurance Providers Payer name Policy type / Coverage type Policy ID Covered alliance party ID Covered alliance party's relationship to lees Policy Lees Plan Information [employer]LLCARE [id number] SP [id number] WELLCARE -O/P [id number] 18 [id number] HUMANA GOLD PLUS -O/P [id number] 18 [id number] HU[employer]NA GOLD [id number] SP [id number] HUMANA MEDICARE HMO HM [id number] 18 [id number] HU[employer]NA GOLD PLUS -PHYSICIAN HM [id number] 1 [id number] HUMANA GOLD PLUS MCR -I/P [id number] 18 [id number] MEDICARE KANDY [id number] S [id number] HUMANA HEA [id number] S [id number] HU[employer]NA MEDICARE ADVANTAGE G [id number] Self [id number] [employer]NA GOLD PLUS -O [id number] 18 [id number] HU[employer]NA GOLD PLUS -RECURRING [id number] 1 [id number] [employer]NA GOLD CLASSIC [id number] S [id number] [employer] [id number] S [id number] [place]IC[place] [id number] S [id number] [employer]MANA [id number] S [id number] [employer]NA GOLD CLASSIC [id number] S [id number] [employer] [id number] S [id number] [place]IC[place] [id number] S [id number] [employer] Care Plan - MEDICAL ONLY Other 0 Self 0 [employer] Care Plan - MEDICAL ONLY Other 0 Self 0 [employer] Care Plan - MEDICAL ONLY Other 0 Self 0 [employer]NA MEDICARE ADVANTAGE G [id number] Self [id number] [employer]NA PPO [id number] SP [id number] [employer]NA PPO [id number] SP [id number] [employer]ana Gold Choice Commercial [id number] Self [id number] Aetna zanda Commercial [id number] Self [id number] AETNA MEDICARE [id number] SP [id number] [employer] MEDICARE O/P [id number] 18 [id number] [employer] Care Plan - MEDICAL ONLY Other 0 Self 0 [employer] Care Plan - MEDICAL ONLY Other 0 Self 0 [employer] Care Plan - MEDICAL ONLY Other 0 Self 0 [employer] Care Plan - MEDICAL ONLY Other 0 Self 0 [employer] Individual Policy [id number] Self [id number] Aetna zanda Commercial [id number] Self [id number] Medicare StaffInsight Commercial [id number] Self [id number] Aetna Individual Policy [id number] Self [id number] Aetna zanda Commercial [id number] Self [id number] AETNA MEDICARE [id number] SP [id number] MEDICARE COMPLETE [id number] SP [id number] AETNA MEDICARE -O/P [id number] 18 [id number] Aetna Individual Policy [id number] Self [id number] [employer]na Individual Policy [id number] Self [id number] [employer] Individual Policy [id number] Self [id number] [employer] Individual Policy [id number] Self [id number] [employer] Individual Policy [id number] Self [id number] Aetna Individual Policy [id number] Self [id number] Aetna Individual Policy [id number] Self [id number] [facility] Individual Policy [id number] S elf [id number] [employer] MEDICARE O/P [id number] 18 [id number] [employer] MEDICARE-RECURRING [id number] 18 [id number] [employer] MEDICARE I/P [id number] 18 [id number] [facility] Individual Policy 0 S elf 0 [facility] Individual Policy 0 S elf 0 [employer] MEDICARE-RECURRING [id number] 18 [id number] [employer] MEDICARE [id number] 18 [id number] [facility] Individual Policy 0 S elf 0 [facility] Individual Policy [id number] S elf [id number] [facility] Individual Policy [id number] S elf [id number] UNICARE-RECURRING [id number] 18 [id number] MEDICARE COMPLETE [id number] SP [id number] [employer] MEDICARE -O/P [id number] 18 [id number] [facility]/Medicare Commercial Self UNHC AMERICHOICE XIX -HMO [id number] 18 [id number] MEDICARE -O/P [id number] 18 [id number] MEDICARE -O/P [id number] 18 [id number] UNICARE-O/P [id number] 18 [id number] UNICARE-O/P [id number] 18 [id number] UNICARE-[facility]IC [id number] 18 [id number] UNICARE-O/P [id number] 18 [id number] UNICARE UNICARE Problems, Conditions, and Diagnoses Code Display Name Description Problem Type Effective Dates Data Source(s) M05.79 [id number] Rheumatoid arthritis involving multiple sites with positive rheumatoid factor Problem 10/28/2019 12:00:00 AM EST eCW1 ([facility]) M05.79 [id number] Rheumatoid arthritis involving multiple sites with positive rheumatoid factor Problem 10/28/2019 12:00:00 AM EST eCW1 ([facility]) M0579 Rheumatoid arthritis with rh eumatoid factor of multiple sites without organ or systems involvement Rheumatoid arthritis with rheumatoid fac tor of multiple sites without organ or systems involvement Diagnosis 09:54:00 AM [facility] E806 Other disorders of bilirubin metabolism Other disorders of bilirubin metabolism Diagnosis 09/13/2020 09:16:00 AM [facility] J449 Chronic obstructive pulmonary disease, u nspecified Chronic obstructive pulmonary disease, unspecified Diagnosis 09/13/2020 09:16:00 AM [facility] M069 Rheumatoid arthritis, unspecified Rheumatoid art hritis, unspecified Diagnosis 09/13/2020 09:16:00 AM [facility] I10 Essential (primary) hypertension Essential (primary) h ypertension Diagnosis 09/13/2020 09:16:00 AM [facility] K5289 Other specified noninfective gastroenter itis and colitis Other specified noninfective gastroenteritis and colitis Diagnosis 09/13/2020 09:16:00 AM [facility] R32 Unspecified urinary incontinence Unspecified urinary i ncontinence Diagnosis 08/05/2020 10:10:00 AM [facility] E782 Mixed hyperlipidemia Mixed hyperlipidemia Diagnosis 08/05/2020 10:10:00 AM [facility] E139 Other specified diabetes mellitus withou t complications Other specified diabetes mellitus without complications Diagnosis 08/05/2020 10:10:00 AM [facility] J309 Allergic rhinitis, unspecified Allergic rhinitis, unsp ecified Diagnosis 06/27/2020 10:48:00 AM [facility] Z951 Presence of aortocoronary bypass graft P resence of aortocoronary bypass graft Diagnosis 06/15/2020 12:21:00 AM [facility] [id number] Other lobsterman (current) drug therapy O ther lobsterman (current) drug therapy Diagnosis 06/15/2020 12:21:00 AM [facility] Z9049 Acquired absence of other specified part s of digestive tract Acquired absence of other specified parts of digestive tract Diagnosis 12:21:00 AM [facility] [id number] Presence of other vascular implants and grafts Presence of other vascular implants and grafts Diagnosis 06/15/2020 12:21:00 AM [facility] I2510 Atherosclerotic heart diseas e of [place] coronary artery without angina pectoris Atherosclerotic heart disease of [place] coronary artery without angina pectoris Diagnosis 06/15/2020 12:21:[address] [facility] I119 Hypertensive heart disease without heart failure Hypertensive heart disease without heart failure Diagnosis 06/15/2020 12:21:00 AM EDT [facility] E7800 Pure hypercholesterolemia, unspecified P ure hypercholesterolemia, unspecified Diagnosis 06/15/2020 12:21:[address] [facility] K269 Duodenal ulcer, unspecified as acute or chronic, without hemorrhage or perforation Duodenal ulcer, unspecified as acute or chronic, without hemorrhage or perforation Diagnosis 06/15/2020 12:21:[address] [facility] K2950 Unspecified chronic gastritis without bl eeding Unspecified chronic gastritis without bleeding Diagnosis 06/15/2020 12:21:00 AM [facility] A0811 Acute gastroenteropathy due to [place] a gent Acute gastroenteropathy due to [place] agent Diagnosis 06/15/2020 12:21:[address] [facility] R197 Diarrhea, unspecified Diarrhea, unspecified Diagnosis 06/15/2020 12:21:[address] [facility] vomiting, diarrhea vomiting, diarrhea Diagnosis 0 06:44:[address] [facility] [id number] Personal history of nicotine dependence Personal history of nicotine dependence Diagnosis 05/22/2020 01:41:00 AM [facility] E162 Hypoglycemia, unspecified Hypoglycemia, unspecified Di agnosis 05/22/2020 01:41:00 AM [facility] K2970 Gastritis, unspecified, without bleeding Gastritis, unspecified, without bleeding Diagnosis 05/22/2020 01:41:[address] [facility] R112 Nausea with vomiting, unspecified Nausea with vo miting, unspecified Diagnosis 05/22/2020 01:41:[address] [facility] R531 Weakness Weakness Diagnosis 05/07/2020 08:52:00 AM ED [facility] N281 Cyst of kidney, acquired Cyst of kidney, acquired Diag nosis 05/07/2020 08:52:[address] [facility] E279 Disorder of adrenal gland, unspecified D isorder of adrenal gland, unspecified Diagnosis 05/07/2020 08:52:[address] [facility] R000 Tachycardia, unspecified Tachycardia, unspecified Diag nosis 05/07/2020 08:52:[address] [facility] A96000 Elevated white blood cell count, unspeci fied Elevated white blood cell count, unspecified Diagnosis 05/07/2020 08:52:[address] [facility] D696 Thrombocytopenia, unspecified Thrombocytopenia, unspec ified Diagnosis 04/25/2020 08:54:[address] [facility] D649 Anemia, unspecified Anemia, unspecified Diagnosis 0 04/25/2020 08:54:[address] [facility] E876 Hypokalemia Hypokalemia Diagnosis 04/25/2020 08:54:[address] [facility] [facility] A419 Sepsis, unspecified organism Sepsis, unspecified organ ism Diagnosis 04/25/2020 08:54:[address] [facility] K529 Noninfective gastroenteritis and colitis , unspecified Noninfective gastroenteritis and colitis, unspecified Diagnosis 04/25/2020 08:54:[address] [facility] E860 Dehydration Dehydration Diagnosis 04/25/2020 08:54:[address] [facility] Z8679 Personal history of other diseases of th e circulatory system Personal history of other diseases of the circulatory system Diagnosis 09:17:[address] [facility] E785 Hyperlipidemia, unspecified Hyperlipidemia, unspecifie d Diagnosis 04/21/2020 09:17:[address] [facility] R1084 Generalized abdominal pain Generalized abdominal pain Diagnosis 04/21/2020 09:17:[address] [facility] R51 Headache Headache Diagnosis 04/18/2020 09:37:[address] [facility] M542 Cervicalgia Cervicalgia Diagnosis 04/18/2020 09:37:[address] 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 Z98.890 OTHER SPECIFIED POSTPROCEDURAL STATES OT HER SPECIFIED POSTPROCEDURAL STATES Diagnosis 03/29/2020 11:45:00 AM [facility] I72.3 Aneurysm of iliac artery ANEURYSM OF ILIAC ARTERY Diag nosis 03/29/2020 11:45:00 AM [facility] M48.02 Spinal stenosis, cervical region Spinal stenosis , cervical region Diagnosis 03/24/2020 03:12:[address] [facility] Iliac artery aneurysm, bilateral Iliac artery aneurysm , bilateral Diagnosis 03/16/2020 08:19:[address] [facility] AAA (abdominal aortic aneurysm) AAA (abdominal aortic aneurysm) Diagnosis 03/16/2020 08:19:[address] [facility] aaa aaa Diagnosis 03/16/2020 08:19:59 AM [facility] Z01.818 Encounter for other preprocedural examin ation Encounter for other preprocedural examination Diagnosis 03/14/2020 12:53:[address] [facility] pretest pretest Diagnosis 03/02/2020 12:42:18 PM [facility] G95.9 Disease of spinal cord, unspecified Disease of s javid cord, unspecified Diagnosis 02/18/2020 08:30:[address] 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 I10 Essential (primary) hypertension ESSENTIAL (PRIMARY) H YPERTENSION Diagnosis 12/15/2019 01:45:00 PM [facility] E78.5 Hyperlipidemia, unspecified HYPERLIPIDEMIA, UNSPECIFIE D Diagnosis 12/15/2019 01:45:00 PM [facility] E78.00 PURE HYPERCHOLESTEROLEMIA, UNSPECIFIED P URE HYPERCHOLESTEROLEMIA, UNSPECIFIED Diagnosis 12/15/2019 01:45:00 PM [facility] I25.10 Atherosclerotic heart diseas e of [place] coronary artery without angina pectoris ATHSCL HEART DISEASE OF [place] CORONARY ARTERY W/O Diagnosis 12/15/2019 01:45:00 PM [facility] R58 Hemorrhage, not elsewhere classified Hemorrhage, not elsewhere classified Diagnosis 11/04/2019 09:34:00 AM [facility] Surgeries/Procedures Procedure Description Date Indications Data Source(s) Electrocardiogram Interpretation & Report Only 020 12:00:00 AM [facility] ([facility]) Monitoring of Cardiac Electrical Activity, External Ap proach Monitoring of Cardiac Electrical Activity, External Approach 05/09/2020 12:00:00 AM [facility] Introduction of Electrolytic and Water B alance Substance into Peripheral Vein, Percutaneous Approach Introduction of Electrolytic and Water B alance Substance into Peripheral Vein, Percutaneous Approach 05/09/2020 12:00:00 AM [facility] Nucleic acid assay (procedure) 04/27/2020 12:00:00 AM [facility] Nucleic acid assay (procedure) 04/27/2020 12:00:00 AM [facility] Nucleic acid assay (procedure) 04/27/2020 12:00:00 AM [facility] Ultrasonography of Abdomen Ultrasonography of Abdomen 2019 12:00:00 AM [facility] Computerized Tomography (CT Scan) of Abdomen and Pelvi s using Other Contrast Computerized Tomography (CT Scan) of Abdomen and Pelvis using Other Contrast 04/27/2020 12:00:00 AM [facility] Introduction of Other Anti-infective int o Peripheral Vein, Percutaneous Approach Introduction of Other Anti-infective int o Peripheral Vein, Percutaneous Approach 04/25/2020 12:00:00 AM [facility] Nucleic acid assay (procedure) 04/24/2020 12:00:00 AM [facility] White blood cell count (procedure) 04/24/2020 12:00:00 AM [facility] Nucleic acid assay (procedure) 04/24/2020 12:00:00 AM [facility] White blood cell count (procedure) 04/24/2020 12:00:00 AM [facility] Nucleic acid assay (procedure) 04/24/2020 12:00:00 AM [facility] White blood cell count (procedure) 04/24/2020 12:00:00 AM [facility] HEPATITIS C ANTIBODY HEPATITIS C ANTIBODY Routine 03/17/2020 4:57 AM EDT 03/17/2020 08:57:[address] [facility] BLOOD COUNT COMPLETE AUTO&AUTO DIFRNTL WBC COUNT CBC AND DIFFER ENTIAL Routine 03/17/2020 4:57 AM EDT 03/17/2020 08:57:[address] [facility] BASIC METABOLIC PANEL CALCIUM TOTAL BASIC METABOLIC PANEL Routi ne 03/17/2020 4:57 AM EDT 03/17/2020 08:57:00 AM EDT [facility] COAGULATION TIME ACTIVATED POCT ISTAT ACT Routine 03/16/2020 10:32 AM EDT 03/16/2020 02:32:[address] [facility] EVASC RPR DPLMNT [id number] NDGFT EVASC RPR DPLMNT AORTO-BI -ILIAC NDGFT 03/16/2020 9:32 AM EDT ABDOMINAL AORTIC ANEURYSM 03/16/2020 01:32:00 PM EDT - 03/16/2020 05:03:[address] [facility] BLOOD COUNT COMPLETE AUTOMATED CBC STAT 03/16/2020 8:45 A M EDT 03/16/2020 12:45:[address] [facility] BLOOD TYPING ABO TYPE AND CROSSMATCH STAT 03/16/2020 8:45 AM ED T 03/16/2020 12:45:[address] [facility] BASIC METABOLIC PANEL CALCIUM TOTAL BASIC METABOLIC PANEL STAT 03/16/2020 8:45 AM EDT 03/16/2020 12:45:00 PM EDT [facility] EKG 12-LEAD - CMAXX REPORT EKG 12-LEAD - CMAXX REPORT 12/22/2019 1:32 PM EDT 12/22/2019 05:32:00 PM EDT [facility] EKG 12-LEAD EKG 12-LEAD Routine 12/22/2019 1:32 PM EDT 12/22/2019 05:32:[address] [facility] EKG 12-LEAD EKG 12-LEAD Routine 12/22/2019 1:32 PM EDT Preoperative testing 12/22/2019 05:32:00 PM EDT Preoperative elizabeth [facility] Preoperative testing Office Visit, New Pt., Level 2 FC 10/28/2019 12:00:00 AM EST eCW1 ([facility]) Office Visit, New Pt., Level 4 PC 10/28/2019 12:00:00 AM EST eCW1 ([facility]) Results ID Date Data Source [id number] 11/19/2020 11:00:00 AM EST [facility] Name Value Range Interpretation Code Description Data Theresa rce(s) Supporting Document(s) SARS coronavirus 2 RNA Not Detected [facility] [place] This lab was ordered by [facility] and reported by [facility]. ID Date Data Source [id number] 10/25/2020 01:12:00 PM EST [facility] Patient Name: Britney Juarez : 1950 Sex: F Pt Unit #: [id number] Location:[facility] Provider: Visit Date/Time: 10/25/20 Primary Insurance: [employer] Secondary Insurance: [employer]ICARE Intake Vital Signs 10/25/20 13:15 Current Height 5 ft 2 in Current Weight 160 lb Weight Measurement Method Standing Scale BMI 29.2 BP 120/80 Blood Pressure Location Lt brachial Position Sitting Respiration 18 Pulse 68 Pulse Strength Normal Pulse Source Pulse Oximeter Pulse Oximetry (%) 98 Oxygen Delivery Method room air Intake Visit Reasons: Hypertension Nurse Note: PT IS HERE TODAY FOR HYPERTENSION Is patient in pain?: No Allergies naproxen [From Naprosyn] Allergy (Severe, Unverified 07/06/19 16:04) Hives fenofibrate Adverse Reaction (Intermediate, Unverified 07/20/19 13:29) skin rash zolpid em [From Ambien] Adverse Reaction (Intermediate, Unverified 07/20/19 13:28) hallucinations eszopiclone [From Lunesta] Adverse Reaction (Unverified 07/20/19 13:27) hallucinations tramadol Adverse Reaction (Unverified 07/20/19 13:26) hallucination Medications - Last Reconciled 10/25/20 by Maria Luisa Elizondo NP acetaminophen 325 mg PO DAILY atorvastatin 20 mg PO QDAY folic acid 1 mg PO QDAY Lactobacillus acidophilus (Acidophilus) 2,000 mmu cells PO BID methotrexate sodium 15 mg PO QWEEK metoclopramide HCl 10 mg PO Q8H PRN metoprolol tartrate TAKE ONE TABLET BY MOUTH EVERY DAY polyethylene glycol 3350 (Miralax) 17 grams PO QDAY PRN potassium chloride ER 20 mEq PO HS prednisolone 5 mg PO QAM trazodone TAKE ONE TABLET BY MOUTH EVERY DAY HIV Testing Offer - ages 13-64 Requirement for HIV testing offer been met?: Not in age range Coronavirus Screening Screening Have you traveled outside of [facility] or [facility] in the last 14 days.: No Has patient experienced coronavirus symptoms: No PFSH Shingrix (PF) 50 mcg/0.5 mL Performing Provider: Maria Luisa Elizondo NP Administered by: Brionna Cross on 10/25/20 13:50 Social History Does the Patient have a Healthcare Proxy: No Does Patient have a DNR?: No Does Patient have a Living Will?: No HPI Additional HPI HPI Details: RECHECK. NEEDS MED REFILLS. FEELS WELL. Hypertension (Cardio) Current neurological symptoms: Denies headache(s) Current cardiovascular symptom: denies chest pain, dyspnea, fatigue or dizziness Current endocrine symptoms: denies constipation Current renal disease symptoms: denies fatigue, nausea or vomiting Most Recent Cardiac Tests: No Data to Display Review of Systems Const All systems reviewed are unremarkable except as noted in HPI and below Reports system reviewed and no additional complaints, except as documented, Denies chills, Denies fatigue, Denies fever(s) and Denies headache(s) Eyes Reports system reviewed and no additional complaints, except as documented ENT Reports system reviewed and no additional complaints, except as documented, Denies dizziness, Deniesheadache(s) and Denies nasal congestion Card Reports system reviewed and no additional complaints, except as documented, Denies chest pain and Denies dyspnea Resp Denies cough and Denies dyspnea GI Reports system reviewed and no additional complaints, except as documented, Denies constipation, Denies diarrhea, Denies nausea and Denies vomiting Genitourinary: Denies urinary frequency or urinary urgency Musc Reports system reviewed and no additional complaints, except as documented Skin/Breast Reports system reviewed and no additional complaints, except as documented Neuro Reports system reviewed and no additional complaints, except as documented, Denies dizziness and Denies headache(s) Psych Denies anxiety and Denies depression Endo Reports system reviewed and no additional complaints, except as documented and Denies fatigue Aller/Immun Reports system reviewed and no additional complaints, except as documented Exam Const General: cooperative, healthy appearing, no acute distress, well developed and well groomed Nutritional Appearance: well nourished Orientation: alert, awake and oriented x3 HENMT Head: normal to inspection Ears: hearing grossly normal bilaterally Throat: posterior oropharynx normal Neck Neck: normal visual inspection and full ROM Neck mass: No Thyroid: thyroid normal Carotids: normal carotid upstroke Resp Effort Inspection: normal respiratory effort Auscultation: clear to auscultation bilaterally Percussion: percussion normal Cardio Palpation: normal PMI Rate: regular rate Rhythm: regular rhythm Heart Sounds: S1 normal and S2 normal Pulses: normal peripheral pulses GI Inspection: Yes normal to inspection Palpation: soft Percussion: normal to per cussion Auscultation: normal bowel sounds General: No CVA tenderness Musc Cervical Spine: normal cervical lordosis Thoracic/Lumbar Spine: thoracic and lumbar spine normal to inspection Skin Lesions: no lesions Rashes: no rashes Neuro General: patient alert, patient awake, patient oriented x3, gait normal and moves all extremities Cranial Nerves: CN's II-XII intact bilaterally Cognition: normal cognition Speech: speech normal Gait: normal gait Motor: muscle tone normal throughout and strength 5/5 throughout Sensory Exam: no sensory deficits noted Extrem General: normal to inspection Psych Appearance: grossly normal and well kempt Mental Status: mental status grossly normal Speech and Movement: speech and movement normal Affect: normal affect Attitude: cooperative Thought Process: normal Thought Content: normal Insight: insight good Judgment: judgment good Immunizations Shingrix (PF) 50 mcg/0.5 mL Performing Provider: Maria Luisa Elizondo NP Administered by: Brionna olguin on 10/25/20 13:50 Dose Route Admin Location Lot Number Expiration Date [employer] Manufactu rer 0.5 mL IM Right deltoid [id number] 07/13/22 [id number] [employer] VIS Given Date VIS Provided VIS Publication Date 10/25/20 Single Vaccine 19 Eligibility Eligibility Date Funding Source Not [facility] Eligible 10/25/20 Private Assessment Plan Assessment Plan (1) Hypertension: Status: Acute Code(s): I10 - Essential (primary) hypertension Category: Medical Qualifiers: Hypertension type: essential hypertension Qualified Code(s): I10 - Essential (primary) hypertension Plan - Maria Luisa Elizondo NP: Patient education: Diet: Encouraged to adjust caloric intake to maintain ideal body weight, to reduce intake of dietarysaturated fat and cholesterol, to limit sodium intake by avoiding high sodium foods and not adding table salt, and to maintain adequate dietary potassium, preferably from fresh fruits and vegetables. Exercise: Stressed the importance of regular exercise 30-45 minutes most days of the week. Follow-up: In 3-6 months. SHINGRIX #2 TODAY Orders Other Orders: Orders: INJ - Shingrix Vaccine Today Z23 Coding [place] [address] Est Pt Extended Comp Patient Type Established Exam Detailed Medical Decision Making Moderate Complexity Diagnoses Hypertension I10 Hypertension type: essential hypertension <Electronically signed by Maria Luisa Elizondo NP> 10/25/20 1352 Name Value Range Interpretation Code Description Data Theresa rce(s) Supporting Document(s) ID Date Data Source [id number] 10/12/2020 12:06:[address] [facility] Name Value Range Interpretation Code Description Data Theresa rce(s) Supporting Document(s) C reactive protein [Mass/volume] in Serum or Plasma by High sensitivity method 4.91 MG/L 1.00 - 3.[address] [facility] CDC/S HS-CRP CUT-OFF: RELATIVE RISK: <1.0 mg/L Low 1.0 - 3.0 mg/L Average >3.0 mg/L High Optimally, the average of HS-CRP results repeated two weeks apart should be used for risk assessment. ID Date Data Source [id number] 10/12/2020 12:06:[address] [facility] Name Value Range Interpretation Code Description Data Theresa rce(s) Supporting Document(s) COMPREHENSIVE METABOLIC PANEL [facility] COMPREHENSIVE METABOLIC PANEL Sodium [Moles/volume] in Serum or Plasma 141 mEq/L 134 - 153 [facility] Potassium [Moles/volume] in Serum or Plasma 4.9 mEq/L 3.6 - 5.0 [facility] Chloride [Moles/volume] in Serum or Plasma 102 mEq/L 98 - 107 [facility] Carbon dioxide, total [Moles/volume] in Serum or Plasma 30 MEQ/L 22 - 30 [facility] Glucose [Mass/volume] in Serum or Plasma 104 MG/DL 65 - 110 [facility] BUN 23 MG/DL 7 - 21 [facility] Creatinine [Mass/volume] in Serum or Plasma 0.7 MG/DL 0.7 - 1.5 [facility] BUN/CREAT 33 8 - 27 [facility] Protein [Mass/volume] in Serum or Plasma 6.6 G/DL 6.3 - 8.2 [facility] Albumin [Mass/volume] in Serum or Plasma 4.8 G/DL 3.9 - 5.0 [facility] Globulin [Mass/volume] in Serum by calculation 1.8 GM/DL 2.4 - 3.[address] [facility] A/G RATIO 2.7 0.8 - 2.0 H [facility] Calcium [Mass/volume] in Serum or Plasma 10.0 MG/DL 8.4 - 10.2 [facility] Bilirubin.total [Mass/volume] in Serum or Plasma <0.7 MG/DL 0.2 - 1.3 [facility] Alkaline phosphatase [Enzymatic activity/volume] in Serum or Plasma 95 U/L 38 - 126 [facility] Aspartate aminotransferase [Enzymatic activity/volume] in Serum or Plasma 21 U/L 5 - 40 [facility] Alanine aminotransferase [Enzymatic activity/volume] in Seru m or Plasma 24 U/L 7 - 56 [facility] Anion gap 3 in Serum or Plasma 9.0 mmol/L 8.0 - 16.0 [facility]GE 70 [facility]rs [facility] >60 mL/min [facility] AFR AMER GFR >60 [facility] Male GFR In terprentation 20-49 yrs >60 mL/min Normal 50-59 yrs >56 mL/min Normal 60-69 yrs >49 mL/min Normal 70-79yrs >42 mL/min Normal 80 and above >35 mL/min Normal Female GFR Interpretation 20-39 yrs >60 mL/min Normal 40-49 yrs >58 mL/min Normal 50-59 yrs >51 mL/min Normal 60-69 yrs >45 mL/min Normal 70-79 yrs >39 mL/min Normal 80 and above >32 mL/min Normal ID Date Data Source [id number] 10/12/2020 10:32:[address] [facility] Name Value Range Interpretation Code Description Data Theresa rce(s) Supporting Document(s) Erythrocyte sedimentation rate by Westergren method 6 mm/hr 0 - 30 [facility] SED RATE REENTER 6 [facility] ID Date Data Source [id number] 10/12/2020 10:05:[address] [facility] Name Value Range Interpretation Code Description Data Theresa rce(s) Supporting Document(s) CBC W/AUTOMATED DIFF [facility] COMPLETE BLOOD COUNT Leukocytes [#/volume] in Blood by Automated count 7.7 10^3/uL 4.2 - [address] [facility] Erythrocytes [#/volume] in Blood by Automated count 4.50 10^6/uL 4. 20 - 5.40 [facility] Hemoglobin [Mass/volume] in Blood 14.6 g/dL 12.0 - 16.0 [facility] Hematocrit [Volume Fraction] of Blood by Automated count 45.8 % 3 7.0 - 47.0 [facility] Erythrocyte mean corpuscular volume [Entitic volume] b y Automated count 101.8 fL 81.0 - [address] [facility] Erythrocyte mean corpuscular hemoglobin [Entitic mass] by Automated count 32.4 pg 27.0 - 34.0 [facility] Erythrocyte mean corpuscular hemoglobin concentration [Mass/volume] by Automated count 31.9 g/dL 31.0 - 36.0 [facility] Erythrocyte distribution width [Ratio] by Automated count 16.4 % 11.5 - 14.[address] [facility] Platelets [#/volume] in Blood by Automated count 198 10^3/uL 150 - [address] [facility] Platelet mean volume [Entitic volume] in Blood by Automated count 9.8 fL 7.4 - 10.4 [facility] Neutrophils/100 leukocytes in Blood by Automated count 77.9 % 37. 0 - 80.0 [facility] Lymphocytes/100 leukocytes in Blood by Manual count 14.4 % 25.0 - 40.[address] [facility] Monocytes/100 leukocytes in Blood by Automated count 4.4 % 3.0 - 8.0 [facility] Eosinophils/100 leukocytes in Blood by Automated count 2.5 % 0.0 - 7.0 [facility] Basophils/100 leukocytes in Blood by Automated count 0.5 % 0.0 - 2.5 [facility] %IG 0.3 % 0.0 - 0.0 [facility] %NRBC 0.0 % 0.0 - 0.0 [facility] Neutrophils [#/volume] in Blood by Automated count 5.97 10^3/uL 2.00 - 6.90 [facility] Lymphocytes [#/volume] in Blood by Automated count 1.10 10^3/uL 0.60 - 3.40 [facility] Monocytes [#/volume] in Blood by Automated count 0.34 10^3/uL 0.00 - 0.90 [facility] Eosinophils [#/volume] in Blood by Automated count 0.19 10^3/uL 0.00 - 0.70 [facility] Basophils [#/volume] in Blood by Automated count 0.04 10^3/uL 0.00 - 0.20 [facility] #IG 0.02 10^3/uL 0.00 - 0.10 [facility] #NRBC 0.00 10^3/uL 0.00 - 0.00 [facility] MANUAL DIFF NOT INDICATED [facility] RBC MORPH NOT INDICATED [facility] ID Date Data Source [id number] 09/21/2020 09:15:00 AM [facility] Patient Name: Britney Juarez : 1950 Sex: F Pt Unit #: [id number] Location:[facility] Provider: Visit Date/Time: 09/21/20 Primary Insurance: [employer] MEDICARE Secondary Insurance: Self Pay Intake Vital Signs 09/21/20 09:15 Current Height 5 ft 2 in Current Weight 155 lb Weight Measurement Method Standing Scale BMI 28.3 BP 120/80 Blood Pressure Location Lt brachial Position Sitting Respiration 18 Pulse 72 Pulse Strength Normal Pulse Source Pulse Oximeter Pulse Oximetry (%) 98 Oxygen Delivery Method room air Intake Visit Reasons: Hospital Discharge Follow-up Nurse Note: pt is here today for hospital dishcarche pt [facility] in pain?: No Allergies naproxen [From Naprosyn] Allergy (Severe, Unverified 07/06/19 16:04) Hives fenofibrate Adv erse Reaction (Intermediate, Unverified 07/20/19 13:29) skin rash zolpidem [From Ambien] Adverse Reaction (Intermediate, Unverified 07/20/19 13:28) hallucinations eszopiclone [From Lunesta] Adverse Reaction (Unverified 07/20/19 13:27) hallucinations tramadol Adverse Reaction (Unverified 07/20/19 13:26) hallucination HIV Testing Offer - ages 13-64 Requirement for HIV testing offer been met?: Not in age range Coronavirus Screening Screening Have you traveled outside of [facility] or [facility] in the last 14 days.: No Has patient experienced coronavirus symptoms: No [facility] Social History Does the Patient have a Healthcare Proxy: No Does Patient have a DNR?: No Does Patient have a Living Will?: No HPI Additional HPI HPI Details: RECHECK FROM HOSPITALIZATION. DISCHARGED FROM [facility] ON 09/16/2020 FOR GASTROENTERITIS. FEELING MUCH BETTER. HAS APPT WITH [facility] ON 10/05/2020 Review of Systems Const All systems reviewed are unremarkable except as noted in HPI and below Reports system reviewed and no additional complaints, except as documented, Denies chills, Denies fever(s) and Denies headache(s) Eyes Reports system reviewed and no additional complaints, except as documented ENT Reports system reviewed and no additional complaints, except as documented, Denies headache(s), Denies nasal congestion and Denies sore throat Card Reports system reviewed and no additional complaints, except as documented, Denies chest pain and Denies dyspnea Resp Reports system reviewed and no additional complaints, except as documented, Denies cough and Denies dyspnea GI Reports system reviewed and no additional complaints, except as documented, Denies constipation, Denies heartburn, Denies diarrhea, Denies nausea and Denies vomiting Details: VOMITING DIARRHEA HAS RESOLVED. Genitourinary: Reports system reviewed and no additional complaints, except as documented; Denies dysuria, urinary frequency or urinary urgency Musc Reports system reviewed and no additional complaints, except as documented Skin/Breast Reports system reviewed and no additional complaints, except as documented Neuro Reports system reviewed and no additional complaints, except as documented, Denies headache(s) and Denies paresthesias Psych Reports system reviewed and no additional complaints, except as documented, Denies anxiety and Denies depression Endo Reports system reviewed and no additional complaints, except as documented Haroldo/Lymph Reports system reviewed and no additional complaints, except as documented Aller/Immun Reports system reviewed and no additional complaints, except as documented Exam Const General: cooperative, healthy appearing, no acute distress, well developed and well groomed Nutritional Appearance: well nourished Orientation: alert, awake and oriented x3 [facility] Head: normal to inspection Ears: hearing grossly normal bilaterally General nose exam: external nose normal Mouth: oral mucosae normal, lip normal, tongue normal, oropharynx normal and moist mucous membranes Throat: posterior oropharynx normal Eyes General: appearance normal, both eyes and all related structures Periorbital: periorbital findings normal Eyelids: eyelids normal Conjunctivae: conjunctivae normal Sclera: sclerae normal Pupils: PERRL EOM: EOM intact bilaterally Direct ophthalmoscopy: normal light reflex Neck Neck: normal visual inspection and full ROM Neck mass: No Thyroid: thyroid normal Carotids: normal carotid upstroke Lymphatic: no lympha denopathy noted Resp Effort Inspection: normal respiratory effort Auscultation: clear to auscultation bilaterally Percussion: percussion normal Cardio Rate: regular rate Rhythm: regular rhythm Heart Sounds: S1 normal and S2 normal Pulses: normal peripheral pulses GI Inspection: Yes normal to inspection Palpation: soft Percussion: normal to percussion Auscultation: normal bowel sounds General: No CVA tenderness Musc Cervical Spine: normal cervical lordosis and cervical ROM normal Thoracic/Lumbar Spine: thoracic and lumbar spine normal to inspection and thoraco-lumbar ROM normal Skin Lesions: no lesions Rashes: no rashes Hair: normal Nails: normal Neuro General: patient alert, patient awake, patient oriented x3, gait normal and moves all extremities Cranial Nerves: CN's II-XII intact bilaterally Cognition: normal cognition Speech: speech normal Gait: normal gait Motor: muscle tone normal throughout and strength 5/5 throughout Sensory Exam: no sensory deficits noted Extrem General: normal to inspection and full ROM Psych Appearance: grossly normal and well kempt Mental Status: mental status grossly normal Speech and Movement: speech and movement normal Affect: normal affect Attitude: cooperative Thought Process: normal Thought Content: normal Insight: insight good Judgment: judgment good Assessment Plan Assessment Plan (1) Hospital discharge follow-up: Code(s): Z09 - Encounter for follow-up examination after completed treatment for conditions other than malignant neoplasm (2) Gastroenteritis: Status: Acute Code(s): K52.9 - Noninfective gastroenteritis and colitis, unspecified SNOMED Code(s): 05950846 Category: Medical <Electronically signed by Maria Luisa Elizondo NP> 09/21/20 0948 Name Value Range Interpretation Code Description Data Theresa rce(s) Supporting Document(s) ID Date Data Source [id number] 09/15/2020 07:34:[address] [facility] Name Value Range Interpretation Code Description Data [facility] rce(s) Supporting Document(s) CBC W/AUTOMATED DIFF [facility] COMPLETE BLOOD COUNT Leukocytes [#/volume] in Blood by Automated count 7.2 10^3/uL 4.2 - [address] [facility] Erythrocytes [#/volume] in Blood by Automated count 4.27 10^6/uL 4. 20 - 5.40 [facility] Hemoglobin [Mass/volume] in Blood 13.3 g/dL 12.0 - 16.0 [facility] Hematocrit [Volume Fraction] of Blood by Automated count 41.7 % 3 7.0 - 47.0 [facility] Erythrocyte mean corpuscular volume [Entitic volume] by Auto mated count 97.7 fL 81.0 - 101 [facility] Erythrocyte mean corpuscular hemoglobin [Entitic mass] by Automated count 31.1 pg 27.0 - 34.0 [facility] Erythrocyte mean corpuscular hemoglobin concentration [Mass/volume] by Automated count 31.9 g/dL 31.0 - 36.0 [facility] Erythrocyte distribution width [Ratio] by Automated count 16.3 % 11.5 - 14.[address] [facility] Platelets [#/volume] in Blood by Automated count 178 10^3/uL 150 - [address] [facility] Platelet mean volume [Entitic volume] in Blood by Automated count 10.2 fL 7.4 - 10.4 [facility] Neutrophils/100 leukocytes in Blood by Automated count 71.0 % 37. 0 - 80.0 [facility] Lymphocytes/100 leukocytes in Blood by Manual count 15.5 % 25.0 - 40.[address] [facility] Monocytes/100 leukocytes in Blood by Automated count 8.0 % 3.0 - 8.0 [facility] Eosinophils/100 leukocytes in Blood by Automated count 4.1 % 0.0 - 7.0 [facility] Basophils/100 leukocytes in Blood by Automated count 1.0 % 0.0 - 2.5 [facility] %IG 0.4 % 0.0 - 0.0 [facility] al %NRBC 0.0 % 0.0 - 0.0 [facility] al Neutrophils [#/volume] in Blood by Automated count 5.09 10^3/uL 2.00 - 6.90 [facility] Lymphocytes [#/volume] in Blood by Automated count 1.11 10^3/uL 0.60 - 3.40 [facility] Monocytes [#/volume] in Blood by Automated count 0.57 10^3/uL 0.00 - 0.90 [facility] Eosinophils [#/volume] in Blood by Automated count 0.29 10^3/uL 0.00 - 0.70 [facility] Basophils [#/volume] in Blood by Automated count 0.07 10^3/uL 0.00 - 0.20 [facility] #IG 0.03 10^3/uL 0.00 - 0.10 [facility] ospital #NRBC 0.00 10^3/uL 0.00 - 0.00 [facility] ospital MANUAL DIFF NOT INDICATED [facility] RBC MORPH NOT INDICATED [facility] spital ID Date Data Source [id number] 09/15/2020 07:32:[address] [facility] Name Value Range Interpretation Code Description Data Theresa rce(s) Supporting Document(s) COMPREHENSIVE METABOLIC PANEL [facility] COMPREHENSIVE METABOLIC PANEL Sodium [Moles/volume] in Serum or Plasma 139 mEq/L 134 - 153 [facility] Potassium [Moles/volume] in Serum or Plasma 4.4 mEq/L 3.6 - 5.0 [facility] Chloride [Moles/volume] in Serum or Plasma 105 mEq/L 98 - 107 [facility] Carbon dioxide, total [Moles/volume] in Serum or Plasma 26 MEQ/L 22 - 30 [facility] Glucose [Mass/volume] in Serum or Plasma 94 MG/DL 65 - 110 [facility] BUN 13 MG/DL 7 - 21 [facility] al Creatinine [Mass/volume] in Serum or Plasma 0.7 MG/DL 0.7 - 1.5 [facility] BUN/CREAT 19 8 - 27 [facility] al Protein [Mass/volume] in Serum or Plasma 5.7 G/DL 6.3 - 8.[address] [facility] Albumin [Mass/volume] in Serum or Plasma 4.2 G/DL 3.9 - 5.0 [facility] Globulin [Mass/volume] in Serum by calculation 1.5 GM/DL 2.4 - 3.[address] [facility] A/G RATIO 2.8 0.8 - 2.0 [facility] Calcium [Mass/volume] in Serum or Plasma 9.0 MG/DL 8.4 - 10.2 [facility] Bilirubin.total [Mass/volume] in Serum or Plasma 0.7 MG/DL 0.2 - 1.3 [facility] Alkaline phosphatase [Enzymatic activity/volume] in Serum or Plasma 70 U/L 38 - 126 [facility] Aspartate aminotransferase [Enzymatic activity/volume] in Serum or Plasma 13 U/L 5 - 40 [facility] Alanine aminotransferase [Enzymatic activity/volume] in Seru m or Plasma 12 U/L 7 - 56 [facility] Anion gap 3 in Serum or Plasma 8.0 mmol/L 8.0 - 16.0 [facility] AGE 70 yrs [facility] al NON-AA GFR >60 mL/min [facility] ital AFR AMER GFR >60 [facility] Male GFR In terprentation 20-49 yrs >60 mL/min Normal 50-59 yrs >56 mL/min Normal 60-69 yrs >49 mL/min Normal 70-79yrs >42 mL/min Normal 80 and above >35 mL/min Normal Female GFR Interpretation 20-39 yrs >60 mL/min Normal 40-49 yrs >58 mL/min Normal 50-59 yrs >51 mL/min Normal 60-69 yrs >45 mL/min Normal 70-79 yrs >39 mL/min Normal 80 and above >32 mL/min Normal ID Date Data Source [id number] 09/14/2020 12:25:00 PM EST [facility] [address] [place] [address] PHONE: [phone] FAX: [phone] Name .................. : BISMARK TAN Acct Number.................. : [id number] ROOM. ................. : 102-1 MR Number ................... : [id number] Stay type ............. : O/P Discharge Date......... ... : Admit Date ......... : 05/26 Admit Phys .................... : YAMILAMORA Date of ....... : 1950 Family Phys ................... : [id number] Phone .................. : [phone] Age ................................ : 70 Film# .................. .:[id number] Sex ................................. : F Unsigned transcriptions are preliminary reports and do not represent a medical or legal document CT ABD & PELV W/ORAL/IV CONTR [id number] COMPLETE:09/13/20 16:50 [facility] [id number] Reason(s): diarrhea, vomiting CT SCAN OF THE ABDOMEN AND PELVIS WITH CONTRAST: HISTORY: Diarrhea and vomiting. COMPARISON: Prior study from 05/22/20. FINDINGS: The lung bases show COPD and no focal infiltrate or consolidation. The heart appears unremarkable and is not significantly changed. Again, there is a nonspecific ill-defined hypodensity in the right hepatic lobe. This is not significantly changed as compared to the previous examination and MRI would be helpful for further evaluation. The remainder of the liver appears unremarkable. The gallbladder is surgically absent. The spleen is within normal limits. Right adrenal lesions are identified which are not significantly changed in size. The first in the right adrenal gland anteriorly measures 1.5 cm. The second more posteriorly measures 1.6 cm. Hounsfield units of these lesions on a nonenhanced CT scan from 05/22/20 demonstrate these at -10, consistent with adrenal adenomas. There are also lesions of the left adrenal gland measuring approximately 1.1 cm. This also is consistent with an adrenal adenoma. Hounsfield units measures -1 on the previous nonenhanced study. There is persistent edema and wall thickening at the distal stomach and duodenum. The findings raise concern for underlying gastritis/duodenitis. Ulcer disease is not excluded. An endoscopy should be considered to exclude underlying malignancy. The pancreas appears unremarkable. The bilateral kidneys show cysts which are not significantly changed. The largest is in the left kidney measuring approximately 5.7 x 6.2 cm in size. Atherosclerotic disease is identified in the aorta. A vena cava filter is present. 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 On the left side, there is aneurysmal dilatation of the left common iliac artery measuring 2.1 x 2.2 cm in size. A small ventral hernia is identified containing small bowel without evidence of obstruction. The small bowel involvement does appear to be new as compared to the prior study. No free fluid is identified in the pelvis. The urinary bladder appears unremarkable. Diffuse diverticulosis without evidence of diverticulitis. The osseous structures show degenerative changes. Page 1 of 3 [place] [address] PHONE: [phone] FAX: [phone] Name .................. : BISMARK TAN Acct Number.................. : [id number] ROOM. ................. : 102-1 MR Number ................... : [id number] Stay type ............. : O/P Discharge Date......... ... : Admit Date ......... : 09/13/20 Admit Phys .................... : LOTTIE Date of ....... : 1950 Family Phys ................... : SMITH Phone .................. : [phone] Age ................................ : 70 Film# .................. .: [id number] Sex ................................. : F Unsigned transcriptions are preliminary reports and do not represent a medical or legal document CT ABD & PELV W/ORAL/IV CONTR [id number] COMPLETE:09/13/20 16:50 [facility] [address] Reason(s): diarrhea, vomiting IMPRESSION: COPD. Ill-defined hypodensity in the liver, unchanged since the prior study. MRI is recommended. Bilateral adrenal adenomas. Edema and wall thickening of the distal stomach and duodenum, unchanged since the prior study. This raises suspicion for gastritis/duodenitis. Underlying ulceration is not excluded. Endoscopy should be considered to evaluate for ulceration as well as exclude malignancy. Diverticulosis without diverticulitis. Normal appendix. Ventral hernia with small bowel involvement without evidence of obstruction. Bilateral renal cysts. Bilateral common iliac artery aneurysms, unchanged. While performing the above CT examination, radiation dose reduction was accomplished utilizing automated exposure control, adjusting of the mA and kV based on the patient's body size and/or the use of imperative reconstructive techniques. CT dose: 697.9 mGycm Contrast agent in mL: 75 Isovue 370 Method of administration: Intravenous Examination dictated by PEPPER Garrido. Examination was reviewed with Chuck Amanda MD, radiologist at the time of this dictation. Electronically Reviewed and Signed By Page 2 of 3 [facility] [address] [place] [address] [place] [address] PHONE: [phone] FAX: [phone] Name .................. : BISMARK TAN Acct Number.................. : [id number] ROOM. ................. : 102-1 MR Number ................... : [id number] Stay type ............. : O/P Discharge Date......... ... : Admit Date ......... : 09/13/20 Admit Phys .................... : LOTTIE Date of ....... : 1950 Family Phys ................... : SMITH Phone .................. : [phone] Age ................................ : 70 Film# .................. .:[id number] Sex ................................. : F Unsigned transcriptions are preliminary reports and do not represent a medical or legal document CT ABD & PELV W/ORAL/IV CONTR [id number] COMPLETE:09/13/20 16:50 [facility] [address] Reason(s): diarrhea, vomiting Chuck Amanda MD , 09/14/20 12:25, KGG Transcribe Initials: ALETHEA , Transcribe Date: 09/13/20 20:41, Dictation Date: Copy for: EMERGENCY DEPT via [facility] Copy for: 710 MED REC Page 3 of 3 Name Value Range Interpretation Code Description Data Theresa rce(s) Supporting Document(s) ID Date Data Source [id number] 09/14/2020 07:19:[address] [facility] Name Value Range Interpretation Code Description Data [facility](s) Supporting Document(s) CBC W/AUTOMATED DIFF [facility] COMPLETE BLOOD COUNT Leukocytes [#/volume] in Blood by Automated count 10.0 10^3/uL 4.2 - 11.0 [facility] Erythrocytes [#/volume] in Blood by Automated count 4.41 10^6/uL 4. 20 - 5.40 [facility] Hemoglobin [Mass/volume] in Blood 14.0 g/dL 12.0 - 16.0 [facility] Hematocrit [Volume Fraction] of Blood by Automated count 43.0 % 3 7.0 - 47.0 [facility] Erythrocyte mean corpuscular volume [Entitic volume] by Auto mated count 97.5 fL 81.0 - 101 [facility] Erythrocyte mean corpuscular hemoglobin [Entitic mass] by Automated count 31.7 pg 27.0 - 34.0 [facility] Erythrocyte mean corpuscular hemoglobin concentration [Mass/volume] by Automated count 32.6 g/dL 31.0 - 36.0 [facility] Erythrocyte distribution width [Ratio] by Automated count 16.3 % 11.5 - 14.[address] [facility] Platelets [#/volume] in Blood by Automated count 198 10^3/uL 150 - [address] [facility] Platelet mean volume [Entitic volume] in Blood by Automated count 10.5 fL 7.4 - 10.[address] [facility] Neutrophils/100 leukocytes in Blood by Automated count 75.1 % 37. 0 - 80.0 [facility] Lymphocytes/100 leukocytes in Blood by Manual count 16.5 % 25.0 - 40.[address] [facility] Monocytes/100 leukocytes in Blood by Automated count 7.3 % 3.0 - 8.0 [facility] Eosinophils/100 leukocytes in Blood by Automated count 0.6 % 0.0 - 7.0 [facility] Basophils/100 leukocytes in Blood by Automated count 0.2 % 0.0 - 2.5 [facility] %IG 0.3 % 0.0 - 0.0 H [facility] al %NRBC 0.0 % 0.0 - 0.0 [facility] al Neutrophils [#/volume] in Blood by Automated count 7.47 10^3/uL 2.00 - 6.[address] [facility] Lymphocytes [#/volume] in Blood by Automated count 1.64 10^3/uL 0.60 - 3.40 [facility] Monocytes [#/volume] in Blood by Automated count 0.73 10^3/uL 0.00 - 0.90 [facility] Eosinophils [#/volume] in Blood by Automated count 0.06 10^3/uL 0.00 - 0.70 [facility] Basophils [#/volume] in Blood by Automated count 0.02 10^3/uL 0.00 - 0.20 [facility] #IG 0.03 10^3/uL 0.00 - 0.10 [facility] ospital #NRBC 0.00 10^3/uL 0.00 - 0.00 [facility] ospital MANUAL DIFF NOT INDICATED [facility] RBC MORPH NOT INDICATED [facility] spital ID Date Data Source [id number] 09/14/2020 07:18:[address] [facility] Name Value Range Interpretation Code Description Data Theresa rce(s) Supporting Document(s) COMPREHENSIVE METABOLIC PANEL [facility] COMPREHENSIVE METABOLIC PANEL Sodium [Moles/volume] in Serum or Plasma 140 mEq/L 134 - 153 [facility] Potassium [Moles/volume] in Serum or Plasma 4.2 mEq/L 3.6 - 5.0 [facility] Chloride [Moles/volume] in Serum or Plasma 104 mEq/L 98 - 107 [facility] Carbon dioxide, total [Moles/volume] in Serum or Plasma 24 MEQ/L 22 - 30 [facility] Glucose [Mass/volume] in Serum or Plasma 112 MG/DL 65 - [address] [facility] BUN 15 MG/DL 7 - 21 [facility] al Creatinine [Mass/volume] in Serum or Plasma 0.8 MG/DL 0.7 - 1.5 [facility] BUN/CREAT 19 8 - 27 [facility] al Protein [Mass/volume] in Serum or Plasma 6.2 G/DL 6.3 - 8.[address] [facility] Albumin [Mass/volume] in Serum or Plasma 4.3 G/DL 3.9 - 5.0 [facility] Globulin [Mass/volume] in Serum by calculation 1.9 GM/DL 2.4 - 3.[address] [facility] A/G RATIO 2.3 0.8 - 2.0 [facility] Calcium [Mass/volume] in Serum or Plasma 9.6 MG/DL 8.4 - 10.2 [facility] Bilirubin.total [Mass/volume] in Serum or Plasma 1.4 MG/DL 0.2 - 1.[address] [facility] Alkaline phosphatase [Enzymatic activity/volume] in Serum or Plasma 76 U/L 38 - 126 [facility] Aspartate aminotransferase [Enzymatic activity/volume] in Serum or Plasma 14 U/L 5 - 40 [facility] Alanine aminotransferase [Enzymatic activity/volume] in Seru m or Plasma 15 U/L 7 - 56 [facility] Anion gap 3 in Serum or Plasma 12.0 mmol/L 8.0 - 16.0 [facility] AGE 70 [facility]rs [facility] >60 mL/min [facility] ital AFR AMER GFR >60 [facility] Male GFR In terprentation 20-49 yrs >60 mL/min Normal 50-59 yrs >56 mL/min Normal 60-69 yrs >49 mL/min Normal 70-79yrs >42 mL/min Normal 80 and above >35 mL/min Normal Female GFR Interpretation 20-39 yrs >60 mL/min Normal 40-49 yrs >58 mL/min Normal 50-59 yrs >51 mL/min Normal 60-69 yrs >45 mL/min Normal 70-79 yrs >39 mL/min Normal 80 and above >32 mL/min Normal ID Date Data Source [id number] 09/14/2020 07:16:[address] [facility] Name Value Range Interpretation Code Description Data Theresa rce(s) Supporting Document(s) Magnesium [Mass/volume] in Serum or Plasma 1.9 MG/DL 1.7 - 2.2 [facility] ID Date Data Source [id number] 09/13/2020 11:49:00 [place] [address] RESPIRATORY CARE REPORT ==== ---------NAME------- NUMBER SEX AGE ADMIT DISC. XRAY# F/C TYPEBISMARK TAN [id number] F 70 09/13/20 [id number] MB3 O/P DATE OF : 1950 M/R# [id number] PH#: [phone] 102-1 LOCATION: EMERGENCY DEPT EKG 60019 COMP LETE:09/13/20 13:22 [place] [id number] PHYSICIAN: LOTTIE Estrada Name Value Range Interpretation Code Description Data Theresa rce(s) Supporting Document(s) ID Date Data Source [id number] 09/13/2020 09:16:00 AM [facility] [address] [facility] Emergency Department [address] [place] [address] Phone #: [phone]- [phone] 09/13/2020 09:14 Patient: BRITNEY JUAREZ Sex: F : 1950 Age: 70yWEIGHT:63.5 kg (S) HEIGHT:62 inches (S) BMI:25.6ALLERGIES: Ambien, Fenofibrate, Lunesta, NSAIDs, TramadolCHIEF COMPLAINT: vomiting, diarrheaDIAGNOSIS: Hypertensive disorder, O/E - dehydrated, O/E - dehydrated, Vomiting, GastritisLAB ORDERSOrder Description Priority Entered Acknowledged InitialedC w Diff STAT 09:48 09/13/2020 10:32 Vijaya Lopez Lingappa RN M.D.;CMP STAT 09:48 09/13/2020 10:32 Vijaya Lopez Lingappa RN M.D.;Lipase STAT 09:48 09/13/2020 10:32 Vijaya Lopez Lingappa RN M.D.;Lactic Acid STAT 09:48 09/13/2020 10:32 Vijaya Lopez Lingappa RN M.D.;Stool WBCS STAT 09:48 09/13/2020 Ack'd: 12:36 Kim Palomino Lisa RN M.D.;Clostridium Difficile STAT 09:48 09/13/2020 Ack'd: 12:36Toxin Kim Palomino Lisa RN M.D.;Urinalysis (Clean STAT 09:48 09/13/2020 10:58 Girish,Catch) Kim Palomino R.N., M.D.;DIAGNOSTIC STUDY ORDERSOrder Description Priority Entered Acknowledged InitialedCT ABD PEL STAT 09:49 09/13/2020 11:27 Liam Stout/Oral/IV Contrast Kim Palomino R.N.(Oxygen?(No)) Mariel;(IV?(Yes)) Reason for Study: diarrhea, vomitingMEDICATION/IV/DRIP/FLUID ORDERS [address] [facility] Emergency Department [address] [place] [address] Phone #: ext- [phone] 09/13/2020 09:14 Patient: BRITNEY JUAREZ Sex: F : 1950 Age: 70yOrder Description Priority Entered Acknowledged InitialedNS IV : Bolus 500 STAT 09:48 09/13/2020 10:50 TerrymL, then 150 mL/hr Kim Palomino RN(NOW x1) Mariel;Protonix IVPB 40 09:48 09/13/2020 10:51 Terrymg with Dextrose Kim Palomino RN100 ml spike bag Mariel;(D5W)Zofran IVP 4 mg 09:48 09/13/2020 10:58 Elvira Stout Lingappa John R.N. M.D.;Metoprolol PO 100 09:50 09/13/2020 10:58 mg Girish (NOW x1) Kim Palomino R.N., M.D.; Reason for ordering with alerts: Clinical consideration given (patient usually takes this daily) -- 09:50 09/13/2020 Kim Palomino M.D.Labetalol IVP 5 mg 12:30 09/13/2020 12:36 Vijaya Lopez(NOW x1, HIGH Kim Palomino M.D.;MEDICATION)GENERAL ORDERSOrder Description Priority Entered Acknowledged InitialedCardiac Monitor 09:48 09/13/2020 10:59 Girish(continuous) Kim Palomino R.N., M.D.;EKG 12:22 09/13/2020 12:45 Vijaya Lopez Lingappa RN M.D.;[Electronically signed by Flaco Caruso R.N. (16:29 09/13/2020)][Electronically signed by Kim Palomino M.D. (22:27 09/13/2020)][Electronically locked by Flaco Caruso R.N. (16:29 09/13/2020)] Name Value Range Interpretation Code Description Data Theresa rce(s) Supporting Document(s) ID Date Data Source [id number] 09/13/2020 09:16:[address] [facility] [address] [facility] Emergency Department [address] [place] [address] Phone #: [phone]- [phone] 09/13/2020 09:14 Patient: BRITNEY JUAREZ Sex: F : 1950 Age: 70yWeight: 63.5 kgHeight/Length: 62 in.BMI: 25.6ALLERGIES: Ambien, Fenofibrate, Lunesta, NSAIDs, TramadolThe patient's Home Medications are listed below:THE FOLLOWING MEDICATIONS NEED TO BE RECONCILED: Atorvastatin Calcium Oral (10 mg) 1 tablet, daily, at bedtime Metoprolol Tartrate Oral (100 mg) 1 tablet, daily Omeprazole Oral, 2x a day Probiotic Formula Oral Tension Headache Oral (500-65 mg) 2 tablets, prn traZODone HCl Oral 50 mg, daily, at bedtime Zofran ODT OralThe source(s) of the original Home Medication information:Not obtained.The following Medications were given to the patient in the Emergency Department:NS [IV] IV Fluids bolus 500 mL over 30 minute(s), then 150 mL/hr, administered: 09/13/2020 10:50:00 AMProtonix [IVPB] IVPB bolus 0, then 40 mg 200 mL/hr, administered: 09/13/2020 10:51:00 AMZofran [IVP] IVP 4 mg, administered: 09/13/2020 10:58:00 AMMetoprolol [PO] PO 100 mg, administered: 09/13/2020 10:58:00 AMLabetalol [IVP] IVP 5 mg, administered: 09/13/2020 12:36:00 PM [address] [facility] Emergency Department [address] [place] [address] Phone #: ext- [phone] 09/13/2020 09:14 Patient: BRITNEY JUAREZ Sex: F : 1950 Age: 70yThe following Medications were prescribed to the patient:None. Name Value Range Interpretation Code Description Data Theresa rce(s) Supporting Document(s) ID Date Data Source [id number] 09/13/2020 09:16:[address] [facility] [address] [facility] Emergency Department [address] [place] [address] Phone #: ext- [phone] 09/13/2020 09:14 Patient: BRITNEY JUAREZ Sex: F : 1950 Age: 70yWeight: 63.5 kgHeight/Length: 62 inBMI: 25.6ALLERGIES: Ambien, Fenofibrate, Lunesta, NSAIDs, Tramadol Date/Time Medication Administered Medication OrderedStart NS [IV] NS IV : Bolus 500 mL, then 42963:50 09/13/2020 Dose: IV Fluids mL/hr (NOW x1); Laila Martinez RN Rate: 150 mL/hr over 5 hour(s)---- Bolus: 500 mL over 30 minute(s)Stop Dispensed: 1000 mL bag15:28 09/13/2020 Site: #1 left Flaco Puri R.N.Start PROTONIX [IVPB] (PANTOPRAZOLE Protonix IVPB 40 mg with10:51 09/13/2020 SODIUM) Dextrose 100 ml spike bag (D5W)Fransisco Martinez RN Dose: 40 mg IVPB---- Rate: 200 mL/hr over 30 minute(s)Stop Dispensed: 100 mL bag15:29 09/13/2020 Site: #1 left Flaco Puri R.N.Given ZOFRAN [IVP] ( ONDANSETRON HCL) Zofran IVP 4 mg10:58 09/13/2020 Dose: 4 mg IVRobbi Fernandez R.N. Site: #1 left ACGiven METOPROLOL [PO] Metoprolol PO 100 mg (NOW x1)10:58 09/13/2020 Dose: 100 mg Tablets POGroves, Robbi, R.N.Given LABETALOL [IVP] Labetalol IVP 5 mg (NOW x1, HIGH12:36 09/13/2020 Dose: 5 mg IVP ALERT MEDICATION)Vijaya Lopez RN Site: #1 left Name Value Range Interpretation Code Description Data Theresa rce(s) Supporting Document(s) ID Date Data Source [id number] 09/13/2020 09:16:[address] [facility] [address] [facility] Emergency Department [address] [place] [address] Phone #: ext- [phone] 09/13/2020 09:14 Patient: BRITNEY JUAREZ Sex: F : 1950 Age: 70yVomiting with nausea, dehydration and volume depletion.Dehydration.Moderate dehydrationChronic gastritisUncontrolled hypertension.ventral hernia,ruled out Bowel obstruction, Peptic ulcer diseasepoorly controlled HTN. ADDITIONAL INFORMATIONVomiting (Adult)Vomiting is a common symptom that may be due to different causes. These include gastroenteritis("stomach flu"), food poisoning and gastritis. There are other more serious causes of vomiting whichmay be hard to diagnose early in the illness. Therefore, it is important to watch for the warning signslisted below.The main danger from repeated vomiting is dehydration. This is due to excess loss of water andminerals from the body. When this occurs, your body fluids must be replaced.Home care If symptoms are severe, rest at home for the next 24 hours. Because your symptoms may be from an infection, wash your hands often and well. If soap and water are not available, use alcohol-based sheet rock applicator to keep from spreading the infection to others. Wash your hands for at least 20 seconds. Humming the happy birthday song twice while you wash is an easy way to make sure you've washed for 20 seconds. Wash your hands after using the toilet, before and after preparing food, before eating food, after changing a diaper, cleaning a wound, caring for a sick person, and blowing your nose, coughing, or sneezing. You should also wash your hands after caring for someone who is sick, touching pet food, or treats, and touching an animal, or animal waste. You may use acetaminophen or NSAID medicines like ibuprofen or naproxen to control fever, unless another medicine was prescribed. If you have chronic liver or kidney disease or ever had a stomach ulcer or gastrointestinal bleeding, talk with your doctor before using these [address] [facility] Emergency Department [address] [place] [address] Phone #: ext- [phone] 09/13/2020 09:14 Patient: BRITNEY JUAREZ Sex: F : 1950 Age: 70y medicines. Aspirin should never be used in anyone under 18 years of age who is ill with a fever. It may cause severe liver damage. Don't use NSAID medicines if you are already taking one for another condition (like arthritis) or are on aspirin (such as for heart disease, or after a stroke) Don't use tobacco and or drink alcohol, which may worsen your symptoms. If medicines for vomiting were prescribed, take as directed. Once vomiting stops, then follow these guidelines:During the first 12 to 24 hours follow the diet below: Fruit juices. Apple, grape juice, clear fruit drinks, and electrolyte replacement drinks. Beverages. Soft drinks without caffeine; mineral water (plain or flavored), decaffeinated tea and coffee. Soups. Clear broth and bouillon Desserts. Plain gelatin, ice pops, and fruit juice bars. As you feel better, you may add 6 to 8 ounces of yogurt per day.During the next 24 hours you may add the following to the above: Hot cereal, plain toast, bread, rolls, crackers Plain noodles, rice, mashed potatoes, chicken noodle or rice soup Unsweetened canned fruit such as applesauce, bananas (avoid pineapple and citrus) Limit caffeine and chocolate. No spices or seasonings except salt.During the next 24 hours:Gradually resume a normal diet, as you feel better and your symptoms lessen.Follow-up careFollow up with your healthcare provider, or as advised.When to seek medical adviceCall your healthcare provider right away if any of these occur: Constant right-sided lower belly pain or increasing general belly pain Continued vomiting (unable to keep liquids down) for 24 hours Vomiting blood or coffee grounds [address] [facility] Emergency Department [address] [place] [address] Phone #: ext- [phone] 09/13/2020 09:14 Patient: BRITNEY JUAREZ Sex: F : 1950 Age: 70y Swollen belly Frequent diarrhea (more than 5 times a day); blood (red or black color) or mucus in diarrhea Reduced urine output or extreme thirst Weakness, dizziness or fainting Unusually drowsy or confused Fever of 100.4F (38C) oral or higher, or as directed Yellow color of the eyes or skin 2912-9880 [employer]. [address] [place] [address]. All rights reserved. This information is not intended as asubstitute for professional medical care. Always follow your healthcare professional's instructions.Gastritis (Adult)Gastritis is inflammation and irritation of the stomach lining. You can have it for a short time (acute) piero long lasting (chronic). Infection with bacteria called H pylori most often causes gastritis. More thana third of people in the [place] have these bacteria in their bodies. In many cases, H pylori causes noproblems or symptoms. In some people, though, the infection irritates the stomach lining and causesgastritis. H. pylori may be diagnosed through blood, stool, or breath tests, we well as through biopsyduring an endoscopy. Other causes of stomach irritation include drinking alcohol, smoking or chewingtobacco, or taking pain-relieving medicines called NSAIDs (such as aspirin or ibuprofen). Certain [address] [facility] Emergency Department [address] [place] [address] Phone #: ext- [phone] 09/13/2020 09:14 Patient: BRITNEY JUAREZ Sex: F : 1950 Age: 70ydrugs (such as cocaine) and immune conditions can also cause gastritis.Symptoms of gastritis can include: Belly pain or bloating Feeling full quickly Loss of appetite Nausea or vomiting Vomiting blood or having black stools Feeling more tired than usualAn inflamed and irritated stomach lining is more likely to develop a sore called an ulcer. To helpprevent this, gastritis should be treated.Home careIf needed, our healthcare provider may prescribe medicines. If you have H pylori infection, treating itwill likely relieve your symptoms. Other changes can help reduce stomach irritation and help it heal. If you have been prescribed medicines for H pylori infection, take them as directed. Take all of the medicine until it is finished or your healthcare provider tells you to stop, even if you feel better. Your healthcare provider may advise you not to take NSAIDs. If you take daily aspirin for your heart or other medical reasons, do not stop with out talking to your healthcare provider first. Don't drink alcohol. Stop smoking. Smoking can irritate the stomach and delay healing. As much as possible, stay away from second hand smoke.Follow-up careFollow up with your healthcare provider, or as advised by our staff. You may need testing to check forinflammation or an ulcer.When to seek medical adviceCall your healthcare provider for any of the following: Stomach pain that gets worse or moves to the lower right belly (appendix area) Chest pain that appears or gets worse, or spreads to the back, neck, shoulder, or arm [address] [facility] Emergency Department [address] [place] [address] Phone #: ext- [phone] 09/13/2020 09:14 Patient: BRITNEY JUAREZ Sex: F : 1950 Age: 70y Frequent vomiting (can't keep down liquids) Blood in the stool or vomit (red or black in color) Feeling weak or dizzy Shortness of breath Unexplained weight loss Fever of 100.4F (38C) or higher, or as directed by your healthcare provider [id number] [employer] [address] [place] [address]. All rights res erved. This information is not intended as asubstitute for professional medical care. Always follow your healthcare professional's instructions.Dehydration (Adult)Dehydration occurs when your body loses too much fluid. This may be the result of prolongedvomiting or diarrhea, excessive sweating, or a high fever. It may also happen if you don't drinkenough fluid when you're sick or out in the heat. Misuse of diuretics (water pills) can also be a cause.Symptoms include thirst and decreased urine output. You may also feel dizzy, weak, fatigued, or verydrowsy. The diet described below is usually enough to treat dehydration. In some cases, you mayneed medicine.Home care Drink at least 12 8-ounce glasses of fluid every day to resolve the dehydration. Fluid may include water; orange juice; lemonade; apple, grape, or cranberry juice; clear fruit drinks; electrolyte replacement and sports drinks; and teas and coffee without caffeine. Don't drink alcohol. If you have been diagnosed with a kidney disease, ask your doctor how much and what types of fluids you should drink to prevent dehydration. If you have kidney disease, fluid can build up in the body. This can be dangerous to your health. If you have a fever, muscle aches, or a headache as a result of a cold or flu, you may take acetaminophen or ibuprofen, unless another medicine was prescribed. If you have chronic liver or kidney disease, or have ever had a stomach ulcer or gastrointestinal bleeding, talk with your healthcare provider before using these medicines. Don't take aspirin if you are younger than 18 and have a fever. Aspirin raises the chance for severe liver injury.Follow-up careFollow up with your healthcare provider, or as advised.When to seek medical advice [address] [facility] Emergency Department [address] [place] [address] Phone #: rvr- [phone] 09/13/2020 09:14 Patient: BRITNEY JUAREZ Sex: F : 1950 Age: 70yCall your healthcare provider right away if any of these occur: Continued vomiting Frequent diarrhea (more than 5 times a day); blood (red or black color) or mucus in diarrhea Blood in vomit or stool Swollen abdomen or increasing abdominal pain Weakness, dizziness, or fainting Unusual drowsiness or confusion Reduced urine output or extreme thirst Fever of 100.4F (38C) or higher [id number] [employer] [address] [place] [address]. All rights reserved. This information is not intended as asubstitute for professional medical care. Always follow your healthcare professional's instructions.Established High Blood Pressure High blood pressure (hypertension) is a chronic disease.Often, healthcare providers don't know what causes it. But it can be caused by certain healthconditions and medicines.If you have high blood pressure, you may not have any symptoms. If you do have symptoms, theymay include headache, dizziness, changes in your vision, chest pain, and shortness of breath. But [address] [facility] Emergency Department [address] [place] [address] Phone #: ext- [phone] 09/13/2020 09:14 [id number] Sex[facility] F : 1950 Age: 70yeven without symptoms, high blood pressure that's not treated raises your risk for heart attack, heartfailure, and stroke. High blood pressure is a serious health risk and shouldn't be ignored.Blood pressure measurements are given as 2 numbers. Systolic blood pressure is the upper number.This is the pressure when the heart contracts. Diastolic blood pressure is the lower number. This isthe pressure when the heart relaxes between beats. You will see your blood pressure readingswritten together. For example, a person with a systolic pressure of 118 and a diastolic pressure of 78will have 118/78 written in the medical record.Blood pressure is categorized as normal, elevated, or stage 1 or stage 2 high blood pressure: Normal blood pressure is systolic of less than 120 and diastolic of less than 80 (120/80) Elevated blood pressure is systolic of 120 to 129 and diastolic less than 80 Stage 1 high blood pressure is systolic is 130 to 139 or diastolic between 80 to 89 Stage 2 high blood pressure is when systolic is 140 or higher or the diastolic is 90 or higherHome careIf you have high blood pressure, follow these home care guidelines to help lower your blood pressure.If you are taking medicines for high blood pressure, these methods may reduce or end your need formedicines in the future. Start a weight-loss program if you are overweight. Cut back on how much salt you get in your diet. Here's how to do this: o Don't eat foods that have a lot of salt. These include olives, pickles, smoked meats, and salted potato chips. o Don't add salt to your food at the table. o Use only small amounts of salt when cooking. Start an exercise program. Talk with your healthcare provider about the type of exercise program that would be best for you. It doesn't have to be hard. Even brisk walking for 20 minutes 3 times a week is a good form of exercise. Don't take medicines that stimulate the heart. This includes many thbj-eqv-hqqmjvv cold and sinus decongestant pills and sprays, as well as diet pills. Check the warnings about high blood pressure on the label. Before buying any pkvk-iio-awnzxzn medicines or supplements, always ask the pharmacist about the product's potential interaction with your high blood pressure and your high blood pressure medicines. Stimulants such as amphetamine or cocaine could be deadly for someone with high blood [address] [facility] Emergency Department [address] [place] [address] Phone #: ext- [phone] 09/13/2020 09:14 Patient: BRITNEY JUAREZ Sex: F : 1950 Age: 70y pressure. Never take these. Limit how much caffeine you get in your diet. Switch to caffeine-free products. Stop smoking. If you are a long-time smoker, this can be hard. Talk to your healthcare provider about medicines and nicotine replacement options to help you. Also, enroll in a stop-smoking program to make it more likely that you will quit for good. Learn how to handle stress. This is an important part of any program to lower blood pressure. Learn about relaxation methods like meditation, yoga, or biofeedback. If your provider prescribed medicines, take them exactly as directed. Missing doses may cause your blood pressure get out of control. If you miss a dose or doses, check with your healthcare provider or pharmacist about what to do. Consider buying an automatic blood pressure machine to check your blood pressu re at home. Ask your provider for a recommendation. You can get one of these at most pharmacies.The [place] [employer] recommends the following guidelines for home blood pressuremonitoring: Don't smoke or drink coffee for 30 minutes before taking your blood pressure. Go to the bathroom before the test. Relax for 5 minutes before taking the measurement. Sit with your back supported (don't sit on a couch or soft chair); keep your feet on the floor uncrossed. Place your arm on a solid flat surface (like a table) with the upper part of the arm at heart level. Place the middle of the cuff directly above the bend of the elbow. Check the monitor's instruction manual for an illustration. Take multiple readings. When you measure, take 2 to 3 readings one minute apart and record all of the results. Take your blood pressure at the same time every day, or as your healthcare provider recommends. Record the date, time, and blood pressure reading. Take the record with you to your next medical appointment. If your blood pressure monitor has a built- in memory, simply take the monitor with you to your next appointment. Call your provider if you have several high readings. Don't be frightened by a single high [address] [facility] Emergency Department [address] [place] [address] Phone #: ext- [phone] 09/13 09:14 Patient: BRITNEY JUAREZ Sex: F : 1950 Age: 70y blood pressure reading, but if you get several high readings, check in with your healthcare provider. Note: When blood pressure reaches a systolic (top number) of 180 or higher OR diastolic (bottom number) of 110 or higher, seek emergency medical treatment.Follow-up careYou will need to see your healthcare provider regularly. This is to check your blood pressure and tomake changes to your medicines. Make a follow-up appointment as directed. Bring the record of yourhome blood pressure readings to the appointment.When to seek medical adviceCall your healthcare provider right away if any of these occur: Blood pressure reaches a systolic (upper number) of 180 or higher OR a diastolic (bottom number) of 110 or higher Chest pain or shortness of breath Severe headache Throbbing or rushing sound in the ears Nosebleed Sudden severe pain in your belly (abdomen) Extreme drowsiness, confusion, or fainting Dizziness or spinning sensation (vertigo) Weakness of an arm or leg or one side of the face You have problems speaking or seeing [id number] [employer] [address] [place] [address], [place] [address]. All rights reserved. This information is not intended as asubstitute for professional medical care. Always follow your healthcare professional's instructions. You have been given the following additional information: Vomiting (Adult) Gastritis (Adult) Dehydration (Adult) Hypertension, Established [address] [facility] Emergency Department [address] [place] [address] Phone #: ext- [phone] 09/13/2020 09:14 Patient: BRITNEY JUAREZ Sex: F : 1950 Age: 70y(Electronically signed by Kim Palomino M.D. 09/13/2020 22:27) Name Value Range Interpretation Code Description Data Theresa rce(s) Supporting Document(s) ID Date Data Source [id number] 09/13/2020 09:16:[address] [facility] 1 Clinical Report - Nurses [facility] Emergency Department [address] [place] [address] Phone #: ext- [phone] 09/13/2020 09:14 Patient: BRITNEY JUAREZ Sex: F : 1950 Age: 70yTRIAGEArrived by private vehicle, and from home. Historian: patient. ( pt c/o vomiting and loose stool off and onx 1 year last night started with vomiting and soft stools).Triage time: 09:22 09/13/2020. 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 Sepsis Screen negative. No suspected or confirmed signs ofinfection present. (09:27 09/13/2020). --09:42 09/13/20 Fransisco Martinez, RN09:37 09/13/20. BP: 186/112. MAP: 136. HR: 87. RR: 18. O2 saturation: 97% on room air. Temp: 96.9 F(oral). Pain level now: 0/10. --09:42 09/13/20 Fransisco Martinez RN.Weight: 63.5 kg stated. Height/Length: 62 inches Per Patient. BMI: 25.6. --09:36 09/13/20 Fransisco Martinez RN.MedicationsAtorvastatin Calcium Oral (Tablet 10 mg) 1 tablet, daily at bedtime. Metoprolol Tartrate Oral (Tablet 100 mg) 1 tablet, daily. Omeprazole Oral, 2x a day. Probiotic Formula Oral. Tension Headache Oral (Tablet 500-65 mg) 2 tablets, as needed. traZODone HCl Oral 50 mg, daily at bedtime. Zofran ODT Oral. --09:39 09/13/20 Fransisco Martinez RN.AllergiesAmbien. (HALLUCINATIONS)Fenofibrate. (MAKES SKIN PEEL)Lunesta. (HALLUCINATIONS)NSAIDs.(itching)Tramadol. (HALLUCINATIONS) --09:39 09/13/20 Fransisco Martinez RN.Tjremlt79:42 09/13/20. 2 Clinical Report - Nurses [facility] Emergency Department [address] [place] [address] Phone #: ext- [phone] 09/13/2020 09:14 Patient: BRITNEY JUAREZ Sex: F : 1950 Age: 70y PAST MEDICAL HX: Peptic ulcer disease. The patient is post-menopausal. SOCIAL HX: Former smoker, end date 2013. Alcohol use. (special occasion). No drug use. No recent travel. No known contact with a sick individual. She was offered HIV testing but declined. She was offered hepatitis C testing but declined (- diagnosed). She has not traveled outside the [place] Infectious disease exposure: No infectious disease exposure. SELF HARM ASSESSMENT: Self harm assessment was performed. The patient answered "no" to the question(s) "Have you recently felt down, depressed, or hopeless?", "Do you have thoughts of harming or killing yourself?", "Do you have a plan for harming or killing yourself?", "Have you recently had thoughts about harming or killing others?", "Do you have any dangerous items in your possession?", "Have you noticed less interest or pleasure in doing things?", "Are you here because you tried to hurt yourself?" and "Have you ever tried to hurt yourself before today?". ABUSE ASSESSMENT: Abuse history: reports abuse. (no). Abuse assessment. No suspicion of abuse. NUTRITIONAL RISK ASSESSMENT: The nutritional risk assessment revealed no deficiencies. FUNCTIONAL ASSESSMENT: Functional assessment: no impairments noted. LEARNING NEEDS ASSESSMENT: The learning needs assessment revealed no barriers. FALL RISK ASSESSMENT: Fall risk assessment completed. No risk factors identified. SKIN INTEGRITY ASSESSMENT: Skin integrity risk assessment completed. No skin integrity risk identified. --09:42 09/13/20 Fransisco Martinez RN. Interventions 09:42 09/13/20. Identification band on patient. To room. --09:42 09/13/20 Fransisco Martinez RN.PHYSICAL JZAYCZBLFO05:43 09/13/20. Ambulatory to room.GENERAL / NEURO / PSYCH: Alert. Oriented X 4. Appears in no acute distress. Appears anxious.RESPIRATORY: Respirations not labored. Breath sounds within normal limits.CVS: Capillary refill less than 2 seconds.GI / : Abdomen soft and nontender. Bowel sounds within normal limits.SKIN: Skin is warm and dry. --09:43 09/13/20 Fransisco Martinez RN.NURSING PROGRESS NOTES09:43 09/13/20. Patient gowned. Head of bed elevated 75 degrees. Two patient identifiers checked.Call light placed in reach. Bed placed in lowest position. Brakes of bed on. Patient ready for evaluation-ED physician notified. --09:44 09/13/20 Fransisco Mratinez RN 10:49 09/13/2020 Site #1 started via IV in the left antecubital space with an 20g angiocath; two attempts. Saline lock flushed with 10 mL saline. --10:50 09/13/20 Fransisco Martinez RN 3 Clinical Report - Nurses [facility] Emergency Department [address] [place] [address] Phone #: ext- [phone] 09/13/2020 09:14 Patient: BRITNEY JUAREZ Sex: F : 1950 Age: 70y 10:50 09/13/2020 Started bag #1 1000 mL IV Fluids NS; bolus of 500 mL over 30 minute(s) then at 150 mL/hr over 5 hour(s) via site #1 via IV pump. Allergies verified and confirmed 5 rights. IV patency established. IV site checked: no pain, redness, or swelling. IV flushed thoroughly pre- and post-medication administration. Information reviewed with patient. --10:50 09/13/20 Fransisco Martinez RN 10:51 09/13/2020 Started 40 mg of Protonix (Pantoprazole Sodium) IVPB in bag #1 100 mL; at 200 mL/hr over 30 minute(s) via site #1. via IV pump. Allergies verified and confirmed 5 rights. IV patency established. IV site checked: no pain, redness, or swelling. IV flushed thoroughly pre- and post- medication administration. Information reviewed with patient. --10:51 09/13/20 Fransisco Martinez RN 10:58 09/13/2020 Zofran (Ondansetron HCl) IVP 4 mg given over 3 minute(s) via site #1. --10:58 09/13/20 Robbi Stout R.N. 10:58 09/13/2020 Metoprolol PO Tablets 100 mg given. --10:58 09/13/20 Robbi Stout R.N. 10:59 09/13/20. BP: 179/83. MAP: 115. HR: 84. RR: 18. O2 saturation: 97%. Temp: deferred. --10:59 09/13/20 Robbi Stout R.N. The patient is calm and resting qu ietly. --10:59 09/13/20 Robbi Stout R.N. 12:17 09/13/20. BP: 209/102. MAP: 137. HR: 72. RR: 18. O2 saturation: 98%. Temp: deferred. Pain level now: 11/16. --12:17 09/13/20 Robbi Stout R.N. The patient is calm and resting quietly. ( noltified of BP. Pt in no acute distress still has a Headache but resting quietly.). --12:17 09/13/20 Robbi Stout R.N. 12:36 09/13/2020 Labetalol IVP 5 mg given via site #1. Allergies verified and confirmed 5 rights. IV patency established. IV site checked: no pain, redness, or swelling. IV flushed thoroughly pre- and post-medication administration. IVP given by RN. Information reviewed with patient including reason for taking this medication. Verbalizes understanding. --12:36 09/13/20 Vijaya Lopez RN 15:28 09/13/2020 IV Fluids NS via IV site #1 Discontinued: bag #1 completed upon admission. Total amount infused: 1000 mL. IV patency established. IV site checked: no pain, redness, or swelling. IV flushed thoroughly. --16:28 09/13/20 Flaco Caruso R.N. 15:29 09/13/2020 Protonix IVPB via IV site #1 Discontinued: bag #1 completed. Total amount infused: 100 mL. IV patency established. IV site checked: no pain, redness, or swelling. IV flushed thoroughly. --16:29 09/13/20 Flaco Caruso R.N.DISPOSITION / DISCHARGE 15:27 09/13/20. BP: 134/94. MAP: 107. HR: 76. RR: 18. O2 saturation: 99%. Temp: 98.5 F. Pain level now: 10/16. --15:27 09/13/20 Vijaya Lopez, ALLI 4 Clinical Report - Nurses [facility] Emergency Department [address] [place] [address] Phone #: ext- [phone] 09/13/2020 09:14 Patient: BRITNEY JUAREZ Sex: F : 1950 Age: 70y 15:40 09/13/20. Departure time: 15:50 09/13/2020. Condition at departure: impro jelani and stable. The goals identified in the patient's plan of care were met. Fall risk assessment completed. Risk factors identified include patient age greater than 65 years. Disposition: observation for further evaluation. Transported via stretcher by nurse with monitor. Report was given to a nurse in person and via visit overview. Report included information regarding patient's treatment, allergies and condition including: recent changes, current vital signs and critical or abnormal labs. Report included treatment information regarding medications given or pending; type and amount of IV fluids and medications infusing and total volume infused. No questions were asked. Bed obtained and ready (102). Patient's personal items; items were transported with the patient. --16:28 09/13/20 Flaco Caruso R.N.Locked/Released at 09/13/2020 16:29 by Flaco Caruso R.N. Name Value Range Interpretation Code Description Data Theresa rce(s) Supporting Document(s) ID Date Data Source [id number] 09/13/2020 09:16:00 AM [facility] 1 Clinical Report - Physicians/Mid Levels [facility] Emergency Department [address] [place] [address] Phone #: ext- [phone] 09/13/2020 09:14 Patient: BRITNEY JUAREZ Sex: F : 1950 Age: 70y Time Seen: 09:29 09/13/2020. Arrived- By private vehicle. Historian- patient. Disposition decision: 13:50 09/13/2020.HISTORY OF PRESENT ILLNESS Chief Complaint: VOMITING and DIARRHEA. No recent travel. She has had nausea, vomiting, diarrhea and abdominal pain. No black stools, bloody stools, flank pain, history of possible bad food exposure or known contact with a sick individual. No change in routine. Has not recently been camping or on antibiotic s. This started yesterday 70 year old with h/o peptic ulcer disease, and also diverticulitis , here for nausea, vomiting, diarrhea, feels weak. no rectal bleed , n0o black stools. seen multiple times here. and sent to [facility] in , found to have PUD , currently on protonix. and is still present. (1 days). The illness is described as moderate. (per patient , unable to eat or drink any food, also could not take meds due to vomiting. no black stool.s lives alone, anxious. on arrival patient is hypertensive). Similar symptoms previously. Patient has had similar symptoms several times. Recent medical care: The patient was seen recently at this facility and another facility (may few times here and [facility]).REVIEW OF SYSTEMSNo fever, muscle aches, difficulty with urination, dark urine or headache. No dizziness, sore throat, cough,chest pain or difficulty breathing. No excessive urination, skin rash, jaundice, back pain or faintingepisodes. No blurred vision. All other systems reviewed and are nega tive.PAST HISTORYSee nurses notes. Peptic ulcer. Problems: Diarrhea. Diverticulitis. Gastroenteritis. Gastritis. Dehydration. Aortic Aneurysm. Abdominal Pain. Coronary Artery Disease. COPD - Chronic Obstructive Pulmonary Disease. Common Iliac Aneurysms, B/L. Primary (Essential) Thrombocytosis. 2 Clinical Report - Physicians/Mid Levels [facility] Emergency Department [address] [place] [address] Phone #: ext- [phone] 09/13/2020 09:14 Patient: BRITNEY JUAREZN: [id number] Sex: F : 1950 Age: 70y Peptic Ulcer Disease. Vomiting. Thrombocytopenia. Rheumatoid Arthritis. Hyperglycemia. Hypercholesterolemia. Heart Disease. Hypertension. Hyperlipidemia. Additional Surgeries: Aortic anuerysm stent placed. Bilateral Tubal Ligation. Cardiac Bypass. Cholecystectomy. Endoscopy. L wrist fx repair. Right wrist fx repair. Sigmoid resection. Tonsillectomy Adenoidectomy. Medicatio ns: Atorvastatin Calcium Oral (Tablet 10 mg) 1 tablet, daily at bedtime. Metoprolol Tartrate Oral (Tablet 100 mg) 1 tablet, daily. Omeprazole Oral, 2x a day. Probiotic Formula Oral. Tension Headache Oral (Tablet 500-65 mg) 2 tablets, as needed. traZODone HCl Oral 50 mg, daily at bedtime. Zofran ODT Oral. Allergies: Ambien. (HALLUCINATIONS) Fenofibrate. (MAKES SKIN PEEL) Lunesta. (HALLUCINATIONS) NSAIDs.(itching) Tramadol. (HALLUCINATIONS).SOCIAL HISTORYNever smoker. No alcohol use or drug use. No recent travel. Is a local resident. Resides in a house.She lives alone.ADDITIONAL NOTESThe nursing notes have been reviewed with agreement regarding the chief complaint, HPI, ROS, PMH andpatient medications and allergies. 3 Clinical Report - Physicians/Mid Levels [facility] Emergenc y Department [address] [place] [address] Phone #: ext- [phone] 09/13/2020 09:14 Patient: BRITNEY JUAREZ Sex: F : 1950 Age: 70yPHYSICAL EXAMVital Signs: 09/13/2020 09:37 BP: 186/112. MAP: 136. HR: 87. RR: 18. O2 saturation: 97% on room air.Temp: 96.9 F. Pain level now: 0/10. Blood pressure: has not taken her BP meds today- hypertensive.Appearance: Alert. No acute distress. Anxious. No apparent distress.Eyes: Eyes normal inspection.ENT: Nose normal. Pharynx normal.Neck: Normal inspection. Neck supple. No meningeal signs, JVD, carotid bruit, lymphadenopathy orthyromegaly.CVS: Normal heart rate. Heart sounds normal. Pulses normal. Rate normal. No cardiac murmur orextra heart sounds.Respiratory: No respiratory distress. No respiratory distress. Painless inspiration. Breath soundsnormal. No accessory muscle use, decreased air movement, crackles or rhonchi.Abdomen: Soft. Mild tenderness in the epigastric area. Bowel sounds normal. No organomegaly. Thebowel sounds are not abnormal. No distention, mass present or organomegaly.Back: Normal inspection. No CVA tenderness.Skin: No cyanosis. Skin warm. No pallor. Normal skin color. No rash. Skin not cool on palpation.No diaphoresis.Extremities: Extremities exhibit normal ROM. No lower extremity edema. No calf tenderness. No lowerextremity edema.Neuro: Oriented X 3. No alteration in mental status. No cranial nerve deficit. No motor deficit. Noweakness. No sensory deficit. No sensory deficit.LABS, X-RAYS, AND EKGEKG: No acute process. No acute ischemia. Non-specific ST segment / T wave abnormalities. Thestudy has been interpreted contemporaneously by me. The EKG appears to be a good tracing.Abdominal CT: distal stomach and duodenum edematous , ? gastritis vs duodenitis. same finding beforeon last work upventral hernia with sb loops , no obstruction, stable aneurysm. Abdominal CT performedwith IV and oral contrast. The study was interpreted by the radiologist.Laboratory Tests: Laboratory tests have been ordered, with results reviewed and considered in themedical decision making process. CBC w Diff: (MINDY: 09/13/2020 09:56) ( MsgRcvd 09/13/2020 10:04) Final results Test Result Flag Units (Reference) CBC W/AUTOMATED DIFF COMPLETE BLOOD COUNT WBC 10.3 10/uL (4.2 - 11.0) RBC 5.15 10/uL (4.20 - 5.40) HEMOGLOBIN 16.1 H g/dL (12.0 - 16.0) HEMATOCRIT 48.9 H % (37.0 - 47.0) MCV 95.0 fL (81.0 - 101) MCH 31.3 pg (27.0 - 34.0) MCHC 32.9 g/dL (31.0 - 36.0) RDW 16.0 H % (11.5 - 14.5) PLATELETS 214 10/uL (150 - 450) MPV 9.9 fL (7.4 - 10.4) NEUT 90.4 H % (37.0 - 80.0) LYMPH 6.3 L % (25.0 - 40.0) MONO 2.2 L % (3.0 - 8.0) EOS 0.1 % (0.0 - 7.0) 4 Clinical Report - Physicians/Mid Levels [facility] Emergency Department [address] [place] [address] Phone #: ext- [phone] 09/13/2020 09:14 Patient: BRITNEY JUAREZ Sex: F : 1950 Age: 70y BASO 0.5 % (0.0 - 2.5) %IG 0.5 H % (0.0 - 0.0) %NRBC 0.0 % (0.0 - 0.0) #NEUT 9.33 H 10/uL (2.00 - 6.90) #LYMPH 0.65 10/uL (0.60 - 3.40) #MONO 0.23 10/uL (0.00 - 0.90) #EOS 0.01 10/uL (0.00 - 0.70) #BASO 0.05 10/uL (0.00 - 0.20) #IG 0.05 10/uL (0.00 - 0.10) #NRBC 0.00 10/uL (0.00 - 0.00) MANUAL DIFF NOT INDICATED RBC MORPH NOT INDICATEDCMP: (MINDY: 09/13/2020 09:56) ( MsgRcvd 09/13/2020 10:30) Final results Test Result Flag Units (Reference) COMPREHENSIVE METABOLIC PANEL COMPREHENSIVE METABOLIC PANEL SODIUM 141 mEq/L (134 - 153) POTASSIUM 4.9 mEq/L (3.6 - 5.0) CHLORIDE 103 mEq/L (98 - 107) CO2 24 MEQ/L (22 - 30) GLUCOSE 182 H MG/DL (65 - 110) BUN 27 H MG/DL (7 - 21) CREATININE 1.0 MG/DL (0.7 - 1.5) BUN/CREAT 27 (8 - 27) TOTAL PROTEIN 7.2 G/DL (6.3 - 8.2) ALBUMIN 4.6 G/DL (3.9 - 5.0) GLOBULIN 2.6 GM/DL (2.4 - 3.2) A/G RATIO 1.8 (0.8 - 2.0) CALCIUM 10.4 H MG/DL (8.4 - 10.2) TOT AL BILI 1.7 H MG/DL (0.2 - 1.3) ALKALINE PHOS 93 U/L (38 - 126) SGOT/AST 17 U/L (5 - 40) SGPT/ALT 22 U/L (7 - 56) ANION GAP 14.0 mmol/L (8.0 - 16.0) AGE 70 yrs NON-AA GFR 58 mL/min AFR AMER GFR >60 Male GFR Interprentation 20-49 yrs >60 mL/min Fpcvot55-36 yrs >56 mL/min Normal 60-69 yrs >49 mL/min Normal 70-79yrs>42 mL/min Normal 80 and above >35 mL/min Normal Female GFRInterpretation 20-39 yrs >60 mL/min Normal 40-49 yrs >58 mL/minNormal 50-59 yrs >51 mL/min Normal 60-69 yrs >45 mL/min Mygtxa88-73 yrs >39 mL/min Normal 80 and above >32 mL/min NormalLipase: (MINDY: 09/13/2020 09:56) ( MsgRcvd 09/13/2020 10:26) Final results Test Result Flag Units (Reference) LIPASE 35 U/L (13 - 60)Lactic Acid: (MINDY: 09/13/2020 09:56) ( MsgRcvd 09/13/2020 10:10) Final results Test Result Flag Units (Reference) LACTIC ACID 3.0 H MMOL/L (0.2 - 2.2)Urinalysis: (MINDY: 09/13/2020 12:08) ( MsgRcvd 09/13/2020 13:13) Final results Test Result Flag Units (Reference) URINALYSIS 5 Clinical Report - Physicians/Mid Levels [facility] Emergency Department [address] [place] [address] Phone #: ext- [phone] 09/13/2020 09:14 Patient: BRITNEY JUAREZ Sex: F : 1950 Age: 70y URINALYSIS SOURCE R COLOR yellow (NORMAL: Yello CLARITY clear (NORMAL: Clear SPEC GRAVITY 1.015 (1.001 - 1.030 pH 6 (5 - 9) GLUCOSE NORM (NORMAL: Negat BILIRUBIN NEG (NORMAL: Negat KETONE 15 A (NORMAL: Negat PROTEIN 15 (NORMAL: Negat NITRITE NEG (NORMAL: Negat BLOOD NEG (NORMAL: Negat LEUK EST NEG (NORMAL: Negat UROBILINOGEN NOR (less than 1.0 MICROSCOPIC See Below WBC 0 - 1 (NORMAL: NONE RBC 0 - 1 (NORMAL: NONE EPITHELIAL None Seen (NORMAL: NONE MUCOUS Trace (NORMAL: NONE.PROGRESS AND PROCEDURESCourse of Care: 10 - 30 AM. Evaluation after repeat exam, multiple exams, IV fluids, Zofran, IV medicationand IV antiemetic. Patient is stable. reviewed previous work up. patient was seen for the same few times, hence sent to [facility], had GI endo done confirmed PUD. on protonix now. again triggered off .hence iv protonix given, due to poorly controlled HTN, gave her usual dose of lmetoprolol . agin rechecked. repeat with iv was dgiven due to persistant BP. 13:57 09/13/20. patient has stopped vomiting now. no diarrhea. no abdominal pain, ct confirmed duodenitis and gastritis. hence con tinue iv fluids, BP control. admitted for further care. d/w hospitalist Peg and admitted for further care. Discussed case with on-call health care provider, (13:50 Sep 13 2020 Mandy). Reviewed test results and need for additional work-up. Agreed upon treatment plan, need for patient follow-up and decision to admit. Health care provider will see patient in ED. Patient/family counseled. Old medical records ordered. Disposition: Admitted.CLINICAL IMPRESSION Vomiting with nausea, dehydration and volume depletion. Dehydration. Moderate dehydration Chronic gastritis Uncontrolled hypertension. ventral hernia,ruled out Bowel obstruction, Peptic ulcer disease poorly controlled HTN. 6 Clinical Report - Physicians/Mid Levels [facility] Emergency Department [address] [place] [address] Phone #: ext- [phone] 09/13/2020 09:14 Patient: BRITNEY JUAREZ Sex: F : 1950 Age: 70y(Electronically signed by Kim Palomino M.D. 09/13/2020 22:27) Name Value Range Interpretation Code Description Data Theresa rce(s) Supporting Document(s) ID Date Data Source [id number] 09/13/2020 01:12:[address] [facility] Name Value Range Interpretation Code Description Data Theresa rce(s) Supporting Document(s) URINALYSIS [facility] yellow NORMAL: Yellow [facility] CLARITY clear NORMAL: Clear [facility] Specific gravity of Urine by Test strip 1.015 1.001 - 1.030 [facility] pH 6 5 - 9 [facility] Glucose [Mass/volume] in Urine by Test strip NORM N[facility]AL: [facility] Bil[facility].total [Presence] in Urine by Test strip NEG NORMAL: Negative [facility] Ketones [Presence] in Urine by Test strip 15 NORMAL: Negative A [facility] Protein [Mass/volume] in Urine by Test strip 15 NORMAL: Negat [facility] Nitrite [Presence] in Urine by Test strip NEG NORMAL: Negative [facility] BLOOD NEG NORMAL: Negative [facility] Leukocyte esterase [Presence] in Urine by Test strip NEG BRITTANY L: Negative [facility] Urobilinogen [Mass/volume] in Urine by Test strip NOR less emil n 1.0 mg/dL [facility] MICROSCOPIC See Below [facility] ital WBC 0 - [address]: NONE [address] [facility] Erythrocytes [#/volume] in Urine by Test strip 0 - 1 NORMAL: NON E SEEN [facility] EPITHELIAL None Seen NORMAL: NONE SEEN [facility] Mucus [Presence] in Urine sediment by Light microscopy Trace NORMAL: NONE SEEN [facility] ID Date Data Source [id number] 09/13/2020 04:36:00 PM [facility] Name Value Range Interpretation Code Description Data Theresa rce(s) Supporting Document(s) Hemoglobin A1c/Hemoglobin.total in Blood 5.6 % 4.4 - 6.1 [facility] {A1]{HB] ID Date Data Source [id number] 09/13/2020 04:19:00 PM [facility] Name Value Range Interpretation Code Description Data Theresa rce(s) Supporting Document(s) Thyrotropin [Units/volume] in Serum or Plasma by Detec tion limit <= 0.05 mIU/L 0.49 uIU/mL 0.47 - 5.01 [facility] ID Date Data Source [id number] 09/13/2020 10:30:00 AM [facility] Name Value Range Interpretation Code Description Data Theresa rce(s) Supporting Document(s) COMPREHENSIVE METABOLIC PANEL [facility] COMPREHENSIVE METABOLIC PANEL Sodium [Moles/volume] in Serum or Plasma 141 mEq/L 134 - 153 [facility] Potassium [Moles/volume] in Serum or Plasma 4.9 mEq/L 3.6 - 5.0 [facility] Chloride [Moles/volume] in Serum or Plasma 103 mEq/L 98 - 107 [facility] Carbon dioxide, total [Moles/volume] in Serum or Plasma 24 MEQ/L 22 - 30 [facility] Glucose [Mass/volume] in Serum or Plasma 182 MG/DL 65 - [address] [facility] BUN 27 MG/DL 7 - 21 H [facility] al Creatinine [Mass/volume] in Serum or Plasma 1.0 MG/DL 0.7 - 1.5 [facility] BUN/CREAT 27 8 - 27 [facility] al Protein [Mass/volume] in Serum or Plasma 7.2 G/DL 6.3 - 8.2 [facility] Albumin [Mass/volume] in Serum or Plasma 4.6 G/DL 3.9 - 5.0 [facility] Globulin [Mass/volume] in Serum by calculation 2.6 GM/DL 2.4 - 3.2 [facility] A/G RATIO 1.8 0.8 - 2.0 [facility] Calcium [Mass/volume] in Serum or Plasma 10.4 MG/DL 8.4 - 10.[address] [facility] Bilirubin.total [Mass/volume] in Serum or Plasma 1.7 MG/DL 0.2 - 1.[address] [facility] Alkaline phosphatase [Enzymatic activity/volume] in Serum or Plasma 93 U/L 38 - 126 [facility] Aspartate aminotransferase [Enzymatic activity/volume] in Serum or Plasma 17 U/L 5 - 40 [facility] Alanine aminotransferase [Enzymatic activity/volume] in Seru m or Plasma 22 U/L 7 - 56 [facility] Anion gap 3 in Serum or Plasma 14.0 mmol/L 8.0 - 16.0 [facility] AGE 70 yrs [facility] 58 mL/min [facility] AFR AMER GFR >60 [facility] Male GFR In terprentation 20-49 yrs >60 mL/min Normal 50-59 yrs >56 mL/min Normal 60-69 yrs >49 mL/min Normal 70-79yrs >42 mL/min Normal 80 and above >35 mL/min Normal Female GFR Interpretation 20-39 yrs >60 mL/min Normal 40-49 yrs >58 mL/min Normal 50-59 yrs >51 mL/min Normal 60-69 yrs >45 mL/min Normal 70-79 yrs >39 mL/min Normal 80 and above >32 mL/min Normal ID Date Data Source [id number] 09/13/2020 10:26:00 AM [facility] Name Value Range Interpretation Code Description Data Theresa rce(s) Supporting Document(s) Lipase [Enzymatic activity/volume] in Serum or Plasma 35 U/L 13 - 60 [facility] ID Date Data Source [id number] 09/13/2020 10:10:00 AM [facility] Name Value Range Interpretation Code Description Data Theresa rce(s) Supporting Document(s) Lactate [Moles/volume] in Serum or Plasma 3.0 MMOL/L 0.2 - 2.[address] [facility] ID Date Data Source [id number] 09/13/2020 10:04:00 AM [facility] Name Value Range Interpretation Code Description Data Theresa rce(s) Supporting Document(s) CBC W/AUTOMATED DIFF [facility] COMPLETE BLOOD COUNT Leukocytes [#/volume] in Blood by Automated count 10.3 10^3/uL 4.2 - 11.0 [facility] Erythrocytes [#/volume] in Blood by Automated count 5.15 10^6/uL 4. 20 - 5.40 [facility] Hemoglobin [Mass/volume] in Blood 16.1 g/dL 12.0 - 16.[address] [facility] Hematocrit [Volume Fraction] of Blood by Automated count 48.9 % 3 7.0 - 47.[address] [facility] Erythrocyte mean corpuscular volume [Entitic volume] by Auto mated count 95.0 fL 81.0 - 101 [facility] Erythrocyte mean corpuscular hemoglobin [Entitic mass] by Automated count 31.3 pg 27.0 - 34.0 [facility] Erythrocyte mean corpuscular hemoglobin concentration [Mass/volume] by Automated count 32.9 g/dL 31.0 - 36.0 [facility] Erythrocyte distribution width [Ratio] by Automated count 16.0 % 11.5 - 14.[address] [facility] Platelets [#/volume] in Blood by Automated count 214 10^3/uL 150 - [address] [facility] Platelet mean volume [Entitic volume] in Blood by Automated count 9.9 fL 7.4 - 10.4 [facility] Neutrophils/100 leukocytes in Blood by Automated count 90.4 % 37. 0 - 80.[address] [facility] Lymphocytes/100 leukocytes in Blood by Manual count 6.3 % 25.0 - 40.[address] [facility] Monocytes/100 leukocytes in Blood by Automated count 2.2 % 3.0 - 8.[address] [facility] Eosinophils/100 leukocytes in Blood by Automated count 0.1 % 0.0 - 7.0 [facility] Basophils/100 leukocytes in Blood by Automated count 0.5 % 0.0 - 2.5 [facility] %IG 0.5 % 0.0 - 0.0 H [facility] %NRBC 0.0 % 0.0 - 0.0 [facility] al Neutrophils [#/volume] in Blood by Automated count 9.33 10^3/uL 2.00 - 6.[address] [facility] Lymphocytes [#/volume] in Blood by Automated count 0.65 10^3/uL 0.60 - 3.40 [facility] Monocytes [#/volume] in Blood by Automated count 0.23 10^3/uL 0.00 - 0.90 [facility] Eosinophils [#/volume] in Blood by Automated count 0.01 10^3/uL 0.00 - 0.70 [facility] Basophils [#/volume] in Blood by Automated count 0.05 10^3/uL 0.00 - 0.20 [facility] #IG 0.05 10^3/uL 0.00 - 0.10 [facility] ospital #NRBC 0.00 10^3/uL 0.00 - 0.00 [facility] ospital MANUAL DIFF NOT INDICATED [facility] RBC MORPH NOT INDICATED [facility] spital ID Date Data Source [id number] 08/05/2020 11:21:[address] [facility] Name Value Range Interpretation Code Description Data Theresa rce(s) Supporting Document(s) [facility]EL [facility] LIPID PANEL Cholesterol [Mass/volume] in Serum or Plasma 158 MG/DL 131 - 200 [facility] Deprecated Triglyceride [Mass/volume] in Serum or Plasma 169 MG/DL 3 5 - [address] [facility] HDL 75 MG/DL 29 - 86 [facility] al Cholesterol in LDL [Mass/volume] in Serum or Plasma by Direc t assay 57 mg/dL 65 - [address] [facility] Cholesterol.total/Cholesterol in HDL [Mass Ratio] in Serum o r Plasma 2.1 3.2 - 4.[address] [facility] LDL/HDL 0.76 1.47 - 3.22 L [facility] ital CVE RISK CHOL/HDL LDL/HDLMEN: 1/2 AVERAGE 3.43 1.00 AVERAGE 4.97 3.55 2X AVERAGE 9.55 6.25 3X AVERAGE 23.99 7.99WOMEN: 1/2 AVERAGE 3.27 1.47 AVERAGE 4.44 3.22 2X AVERAGE 7.05 5.03 3X AVERAGE 11.04 6.14 ID Date Data Source [id number] 08/05/2020 11:21:[address] [facility] Name Value Range Interpretation Code Description Data Theresa rce(s) Supporting Document(s) COMPREHENSIVE METABOLIC PANEL [facility] COMPREHENSIVE METABOLIC PANEL Sodium [Moles/volume] in Serum or Plasma 142 mEq/L 134 - 153 [facility] Potassium [Moles/volume] in Serum or Plasma 3.9 mEq/L 3.6 - 5.0 [facility] Chloride [Moles/volume] in Serum or Plasma 103 mEq/L 98 - 107 [facility] Carbon dioxide, total [Moles/volume] in Serum or Plasma 26 MEQ/L 22 - 30 [facility] Glucose [Mass/volume] in Serum or Plasma 124 MG/DL 65 - [address] [facility] BUN 10 MG/DL 7 - 21 [facility] al Creatinine [Mass/volume] in Serum or Plasma 1.0 MG/DL 0.7 - 1.5 [facility] BUN/CREAT 10 8 - 27 [facility] al Protein [Mass/volume] in Serum or Plasma 7.5 G/DL 6.3 - 8.2 [facility] Albumin [Mass/volume] in Serum or Plasma 4.9 G/DL 3.9 - 5.0 [facility] Globulin [Mass/volume] in Serum by calculation 2.6 GM/DL 2.4 - 3.2 [facility] A/G RATIO 1.9 0.8 - 2.0 [facility] Calcium [Mass/volume] in Serum or Plasma 9.7 MG/DL 8.4 - 10.2 [facility] Bilirubin.total [Mass/volume] in Serum or Plasma 0.7 MG/DL 0.2 - 1.3 [facility] Alkaline phosphatase [Enzymatic activity/volume] in Serum or Plasma 108 U/L 38 - 126 [facility] Aspartate aminotransferase [Enzymatic activity/volume] in Serum or Plasma 21 U/L 5 - 40 [facility] Alanine aminotransferase [Enzymatic activity/volume] in Seru m or Plasma 15 U/L 7 - 56 [facility] Anion gap 3 in Serum or Plasma 13.0 mmol/L 8.0 - 16.0 [facility] AGE 69 yrs [facility] 58 mL/min [facility] AFR AMER GFR >60 [facility] Male GFR In terprentation 20-49 yrs >60 mL/min Normal 50-59 yrs >56 mL/min Normal 60-69 yrs >49 mL/min Normal 70-79yrs >42 mL/min Normal 80 and above >35 mL/min Normal Female GFR Interpretation 20-39 yrs >60 mL/min Normal 40-49 yrs >58 mL/min Normal 50-59 yrs >51 mL/min Normal 60-69 yrs >45 mL/min Normal 70-79 yrs >39 mL/min Normal 80 and above >32 mL/min Normal ID Date Data Source [id number] 08/05/2020 11:14:[address] [facility] Name Value Range Interpretation Code Description Data Theresa rce(s) Supporting Document(s) Hemoglobin A1c/Hemoglobin.total in Blood 5.9 % 4.4 - 6.1 [facility] {A1]{HB] ID Date Data Source [id number] 08/05/2020 10:59:[address] [facility] Name Value Range Interpretation Code Description Data Theresa rce(s) Supporting Document(s) UR[facility]ALYSIS [facility] URINALYSIS SOURCE R [facility] COL[facility] yellow NORMAL: Yellow [facility] CLARITY clear NORMAL: Clear [facility] Specific gravity of Urine by Test strip 1.025 1.001 - 1.030 [facility] pH 5 5 - 9 [facility] Glucose [Mass/volume] in Urine by Test strip NORM NORMAL: Negat yonas [facility] Bilirubin.total [Presence] in Urine by Test strip 1 NORMAL: Negative [facility] Ketones [Presence] in Urine by Test strip 5 NORMAL: Negative [facility] Protein [Mass/volume] in Urine by Test strip 500 NORMAL: Negat yonas [facility] Nitrite [Presence] in Urine by Test strip NEG NORMAL: Negative [facility] BLOOD 10 NORMAL: Negative [facility] Leukocyte esterase [Presence] in Urine by Test strip 25 BRITTANY L: Negative [facility] Urobilinogen [Mass/volume] in Urine by Test strip 1 less emil n 1.0 mg/dL [facility] MICROSCOPIC See Below [facility] ital WBC 1 - 3 NORMAL: NONE SEEN [facility] Erythrocytes [#/volume] in Urine by Test strip 1 - 3 NORMAL: NON E SEEN [facility] EPITHELIAL FEW NORMAL: NONE SEEN [facility] Mucus [Presence] in Urine sediment by Light microscopy 1+ NOR MAL: NONE SEEN [facility] Casts [#/area] in Urine sediment by Microscopy low power field See Be low [facility] Hyaline casts [#/area] in Urine sediment by Microscopy low p ower field 1-3 NORMAL: None Seen [facility] ID Date Data Source [id number] 08/05/2020 10:43:[address] [facility] Name Value Range Interpretation Code Description Data Theresa rce(s) Supporting Document(s) CBC W/AUTOMATED DIFF [facility] COMPLETE BLOOD COUNT Leukocytes [#/volume] in Blood by Automated count 8.1 10^3/uL 4.2 - [address] [facility] Erythrocytes [#/volume] in Blood by Automated count 5.16 10^6/uL 4. 20 - 5.40 [facility] Hemoglobin [Mass/volume] in Blood 15.6 g/dL 12.0 - 16.0 [facility] Hematocrit [Volume Fraction] of Blood by Automated count 49.1 % 3 7.0 - 47.[address] [facility] Erythrocyte mean corpuscular volume [Entitic volume] by Auto mated count 95.2 fL 81.0 - 101 [facility] Erythrocyte mean corpuscular hemoglobin [Entitic mass] by Automated count 30.2 pg 27.0 - 34.0 [facility] Erythrocyte mean corpuscular hemoglobin concentration [Mass/volume] by Automated count 31.8 g/dL 31.0 - 36.0 [facility] Erythrocyte distribution width [Ratio] by Automated count 13.9 % 11.5 - 14.5 [facility] Platelets [#/volume] in Blood by Automated count 237 10^3/uL 150 - [address] [facility] Platelet mean volume [Entitic volume] in Blood by Automated count 9.6 fL 7.4 - 10.4 [facility] Neutrophils/100 leukocytes in Blood by Automated count 78.5 % 37. 0 - 80.0 [facility] Lymphocytes/100 leukocytes in Blood by Manual count 14.0 % 25.0 - 40.[address] [facility] Monocytes/100 leukocytes in Blood by Automated count 3.3 % 3.0 - 8.0 [facility] Eosinophils/100 leukocytes in Blood by Automated count 3.1 % 0.0 - 7.0 [facility] Basophils/100 leukocytes in Blood by Automated count 0.7 % 0.0 - 2.5 [facility] %IG 0.4 % 0.0 - 0.0 H [facility] %NRBC 0.0 % 0.0 - 0.0 [facility] al Neutrophils [#/volume] in Blood by Automated count 6.32 10^3/uL 2.00 - 6.90 [facility] Lymphocytes [#/volume] in Blood by Automated count 1.13 10^3/uL 0.60 - 3.40 [facility] Monocytes [#/volume] in Blood by Automated count 0.27 10^3/uL 0.00 - 0.90 [facility] Eosinophils [#/volume] in Blood by Automated count 0.25 10^3/uL 0.00 - 0.70 [facility] Basophils [#/volume] in Blood by Automated count 0.06 10^3/uL 0.00 - 0.20 [facility] #IG 0.03 10^3/uL 0.00 - 0.10 [facility] #NRBC 0.00 10^3/uL 0.00 - 0.00 [facility] MANUAL DIFF NOT INDICATED [facility] RBC MORPH NOT INDICATED [facility] ID Date Data Source [id number] 08/02/2020 01:06:00 PM EDT [facility] Patient Name: Britney Juarez : 1950 Sex: F Pt Unit #: [id number] Location:[facility] Provider: Visit Date/Time: 08/02/20 Primary Insurance: [employer] MEDICARE Secondary Insurance: Self Pay Intake Vital Signs 08/02/20 13:08 Current Height 5 ft 2 in Current Weight 154 lb 0.2 oz Weight Measurement Method Standing Scale BMI 28.1 BP 122/82 Blood Pressure Location Lt brachial Position Sitting Respiration 18 Pulse 72 Pulse Strength Normal Pulse Source Pulse Oximeter Pulse Oximetry (%) 98 Oxygen Delivery Method room air Intake-Medicare Annual Visit Reasons: Medicare Annual Wellness subsequent Nurse Note: pt is here today for medicare wellness exam Is patient in pain?: No Allergies naproxen [From Naprosyn] Allergy (Severe, Unverified 07/06/19 16:04) Hives fenofibrate Adverse Reaction (Intermediate, Unve rified 07/20/19 13:29) skin rash zolpidem [From Ambien] Adverse Reaction (Intermediate, Unverified 07/20/19 13:28) hallucinations eszopiclone [From Lunesta] Adverse Reaction (Unverified 07/20/19 13:27) hallucinations tramadol Adverse Reaction (Unverified 07/20/19 13:26) hallucination Feel stressed/tense/nervous/anxious/difficulty sleeping: not at all Medications acetaminophen 325 mg PO DAILY atorvastatin 20 mg PO QDAY folic acid 1 mg PO QDAY Lactobacillus acidophilus (Acidophilus) 2,000 mmu cells PO BID methotrexate sodium 15 mg PO QWEEK metoclopramide HCl 10 mg PO Q8H PRN metoprolol tartrate TAKE ONE TABLET BY MOUTH EVERY DAY polyethylene glycol 3350 (Miralax) 17 grams PO QDAY PRN potassium chloride ER 20 mEq PO HS prednisolone 5 mg PO QAM trazodone TAKE ONE TABLET BY MOUTH EVERY DAY Fall Risk History of falls: No Ambulatory Aid:: None Gait/Transferring:: Normal Medications:: Antihypertensives Requirement for HIV testing offer been met?: Not in age range Coronavirus Screening Screening Have you traveled outside of [facility] or [facility] in the last 14 days.: No Has patient experienced coronavirus symptoms: No PFSH Shingrix (PF) 50 mcg/0.5 mL Performing Provider: Maria Luisa Elizondo NP Administered by: Brionna Cross on 08/02/20 14:16 Social History Does the Patient have a Healthcare Proxy: No Does Patient have a DNR?: No Does Patient have a Living Will?: No Medicare Annual Wellness Type Of Examation Type of Exam: Subsequent Wellness Exam EKG EKG Performed: No Medication list Medications acetaminophen 325 mg PO DAILY atorvastatin 20 mg PO QDAY folic acid 1 mg PO QDAY Lactobacillus acidophilus (Acidophilus) 2,000 mmu cells PO BID methotrexate sodium 15 mg PO QWEEK metoclopramide HCl 10 mg PO Q8H PRN metoprolol tartrate TAKE ONE TABLET BY MOUTH EVERY DAY polyethylene glycol 3350 (Miralax) 17 grams PO QDAY PRN potassium chloride ER 20 mEq PO HS prednisolone 5 mg PO QAM trazodone TAKE ONE TABLET BY MOUTH EVERY DAY Allergies Allergies naproxen [From Naprosyn] Allergy (Severe, Unverified 07/06/19 16:04) Hives fenofibrate Adverse Reaction (Intermediate, Unverifi ed 07/20/19 13:29) skin rash zolpidem [From Ambien] Adverse Reaction (Intermediate, Unverified 07/20/19 13:28) hallucinations eszopiclone [From Lunesta] Adverse Reaction (Unverified 07/20/19 13:27) hallucinations tramadol Adverse Reaction (Unverified 07/20/19 13:26) hallucination PHQ-2/9 Over the last 2 weeks, how often have you been bothered by any of the following problems? 1. Little interest or pleasure in doing things: not at all 2. Feeling down, depressed, or hopeless: not at all Total score: 0 Functional Assessment Bathing: Independent Dressing: Independent Toileting: Independent Transferring: Independent Continence: Independent Feeding: Independent Total Score: 6 Home Safety Home Safety: Reports Bathroom: Grab bars and Stairs: Handrail available Hearing Hearing Left Ear: Normal Hearing Right Ear: Normal IADL Assessment Functional abilities: Up Go test, pt steady, Up Go test, within 30 sec, Pt independent w/phone,Pt independent w/transportation, Pt independent w/shopping, Pt independent w/housework, Pt independent w/meal preparation, Pt independent w/laundry, Pt independent w/medication and Pt independent w/finances Cognitive Evaluation Oriented to the date:: Yes Oriented to time:: Yes Oriented to place:: Yes Mood: grossly normal Affect: Normal Judgement: normal Needs caregiver for assistance: No HPI Additional HPI HPI Details: HERE FOR MEDICARE ANNUAL WELLNESS. C/O ITCHY SCALP EARS. SISTER RECENTLY DX'D WITH DIABETES. URINARY FREQUENCY, URGENCY, SOMETIMES IS INCONTINENT AT NIGHT. OTHERWISE FEELS WELL. Review of Systems Const All systems reviewed are unremarkable except as noted in HPI and below Reports system reviewed and no additional complaints, except as documented Eyes Reports system reviewed and no additional complaints, except as documented ENT Reports system reviewed and no additional complaints, except as documented Card Reports system reviewed and no additional complaints, except as documented Resp Reports system reviewed and no additional complaints, except as documented GI Reports system reviewed and no additional complaints, except as documented Genitourinary: Reports urinary frequency, urinary incontinence and urinary urgency Musc Reports system reviewed and no additional complaints, except as documented Details: ARTHRALGIA IN MULTIPLE JOINTS D/T RHEUMATOID ARTHRITIS Skin/Breast Reports system reviewed and no additional complaints, except as documented Neuro Reports system reviewed and no additional complaints, except as documented Psych Reports system reviewed and no additional complaints, except as documented Endo Reports system reviewed and no additional complaints, except as documented Haroldo/Lymph Reports system reviewed and no additional complaints, except as documented Aller/Immun Reports system reviewed and no additional complaints, except as documented Exam Const General: cooperative, healthy appearing, no acute distress, well developed and well groomed Nutritional Appearance: well nourished Orientation: alert, awake and oriented x3 HENMT Head: normal to inspection and normocephalic Ears: hearing grossly normal bilaterally, external ears normal, TM's normal bilaterally, EAC's normal and no periauricular adenopathy General nose exam: external nose normal, nares normal and no nasal discharge Face and sinus: normal facial exam Throat: posterior oropharynx normal Eyes General: appearance normal, both eyes and all related structures Periorbital: periorbital findings normal Eyelids: eyelids normal Conjunctivae: conjunctivae normal Sclera: sclerae normal Pupils: PERRL EOM: EOM intact bilaterally Direct ophthalmoscopy: normal light reflex Neck Neck: normal visual inspection and full ROM Neck mass: No Thyroid: thyroid normal Carotids: normal carotid upstroke Resp Effort Inspection: normal respiratory effort Auscultation: clear to auscultation bilaterally Percussion: percussion normal Cardio Rate: regular rate Rhythm: regular rhythm Heart Sounds: S1 normal and S2 normal Pulses: normal peripheral pulses GI Inspection: Yes normal to inspection Palpation: soft Percussion: normal to percussion Auscultation: normal bowel sounds General: No CVA tenderness Musc Cervical Spine: normal cervical lordosis and cervical ROM normal Thoracic/Lumbar Spine: thoracic and lumbar spine normal to inspection and thoraco-lumbar ROM normal Skin Lesions: no lesions Rashes: no rashes Hair: normal Nails: normal Neuro General: patient alert, patient awake, patient oriented x3, gait normal and moves all extremities Cranial Nerves: CN's II-XII intact bilaterally Cognition: normal cognition Speech: speech normal Gait: normal gait Motor: muscle tone normal throughout and strength 5/5 throughout Sensory Exam: no sensory deficits noted Extrem General: normal to inspection, full ROM and capillary refill normal Psych Appearance: grossly normal and well kempt Mental Status: mental status grossly normal Speech and Movement: speech and movement normal Affect: normal affect Attitude: cooperative Thought Process: normal Thought Content: normal Insight: insight good Judgment: judgment good Immunizations Shingrix (PF) 50 mcg/0.5 mL Performing Provider: Maria Luisa Elizondo NP Administered by: Brionna Cross on 08/02/20 14:16 Dose Route Admin Location Lot Number Expiration Date NDC Manufactu rer 0.5 mL IM Left deltoid [id number] 06/19/22 [id number] [employer] VIS Given Date VIS Provided VIS Publication Date 08/02/20 Single Vaccine 19 Eligibility Eligibility Date Funding Source Not [facility] Eligible 08/02/20 Private Assessment Plan Assessment Plan (1) Medicare annual wellness visit, subsequent: Code(s): Z00.00 - Encounter for general adult medical examination without abnormal findings (2) Coronary artery diseas e: Status: Acute Code(s): I25.10 - Atherosclerotic heart disease of [place] coronary artery without angina pectoris Category: Medical Qualifiers: Coronary Disease-Associated Artery/Lesion type: [place] artery [place] vs. transplanted heart: [place] heart Associated angina: without angina Qualified Code(s): I25.10 - Atherosclerotic heart disease of [place] coronary artery without angina pectoris Plan - Maria Luisa Elizondo NP: SHINGRIX TODAY (3) Hyperlipidemia: Status: Acute Code(s): E78.5 - Hyperlipidemia, unspecified Category: Medical Qualifiers: Hyperlipidemia type: mixed hyperlipidemia Qualified Code(s): E78.2 - Mixed hyperlipidemia Plan - Maria Luisa Elizondo NP: LABS, MAMMO ORDERS GIVEN Orders: Orders: LIPID PANEL Today (4) Hypertension: Status: Acute Code(s): I10 - Essential (primary) hypertension Category: Medical Qualifiers: Hypertension type: essential hypertension Qualified Code(s): I10 - Essential (primary) hypertension (5) Urinary incontinence: Status: Acute Code(s): R32 - Unspecified urinary incontinence Category: Medical Orders: Orders: URINALYSIS Today Orders Other Orders: Orders: INJ - Shingrix Vaccine Today Z23 3D DIG MAMMO SCREEN BILAT Today Z12.31 CMP Today Z09 CBC W AUTO DIFF Today Z09 HGBA1C + EAG Today E13.9 <Electronically signed by Maria Luisa Elizondo NP> 08/02/20 1435 Name Value Range Interpretation Code Description Data Theresa rce(s) Supporting Document(s) ID Date Data Source [id number] 06/15/2020 12:21:[address] [facility] [address] [facility] Emergency Department [address] [place] [address] Phone #: ext- [phone] 06/15/2020 00:19 Patient: BRITNEY JUAREZ Sex: F : 1950 Age: 69yWEIGHT:72.5 kg (M)ALLERGIES: Ambien, Fenofibrate, Lunesta, NSAIDs, TramadolCHIEF COMPLAINT: vomiting, diarrheaDIAGNOSIS: Gastroenteritis, Peptic ulcerLAB ORDERSOrder Description Priority Entered Acknowledged InitialedCBC w Diff STAT 00:48 06/15/2020 00:54 Karin Murrell RN, M.D.;CMP STAT 00:48 06/15/2020 00:54 Karin Murrell RN, M.D.; Lipase STAT 00:48 06/15/2020 00:54 Karin Murrell RN, M.D.;DIAGNOSTIC STUDY ORDERSOrder Description Priority Entered Acknowledged InitialedMEDICATION/IV/DRIP/FLUID ORDERSOrder Description Priority Entered Acknowledged InitialedPhenergan IV 25mg 00:49 06/15/2020 01:16 Stevenin 50mL NS, give Karin Snell RNwide open: 25 mg M.D.;(NOW x1, HIGHALERTMEDICATION)NS IV 500 mL 00:49 06/15/2020 01:17 StevenBolus: : Bolus 500 Karin Snell RNmL (X1) M.D.;Protonix IVPB 40 00:49 06/15/2020 01:17 Stevenmg with Dextrose Karin Snell RN100 ml spike bag M.D.;(D5W)GENERAL ORDERSOrder Description Priority Entered Acknowledged Initialed [address] [facility] Emergency Department [address] [place] [address] Phone #: ext- [phone] 06/15/2020 00:19 Patient: BRITNEY JUAREZ Sex: F : 1950 Age: 69yNPO 00:48 06/15/2020 00:54 Karin Murrell RN, M.D.;Saline Lock 00:48 06/15/2020 00:54 Karin Murrell RN, M.D.;[Electronically signed by Scott Hernandez RN (02:06/15/2020)][Electronically signed by Karin Snell M.D. (07:08 06/15/2020)][Electronically locked by Scott Hernandez RN (:06/15/2020)] Name Value Range Interpretation Code Description Data Theresa rce(s) Supporting Document(s) ID Date Data Source [id number] 06/15/2020 12:21:[address] [facility] [address] [facility] Emergency Department [address] [place] [address] Phone #: [phone]- [phone] 06/15/2020 00:19 Patient: BRITNEY JUAREZ Sex: F : 1950 Age: 69yWeight: 72.5 kgHeight/Length: 62 in.BMI: 29.3ALLERGIES: Ambien, Fenofibrate, Lunesta, NSAIDs, TramadolThe patient's Home Medications are listed below:CONTINUE TAKING THE FOLLOWING MEDICATIONS: Atorvastatin Calcium Oral (10 mg) 1 tablet, daily, at bedtime Metoprolol Tartrate Oral (100 mg) 1 tablet, daily Omeprazole Oral, 2x a day Probiotic Formula Oral Tension Headache Oral (500-65 mg) 2 tablets, prn traZODone HCl Oral 50 mg, daily, at bedtime Zofran ODT OralThe source(s) of the original Home Medication information:Not obtained.The following Medications were given to the patient in the Emergency Department:Phenergan [IVPB] IVPB bolus 25 mg, then 25 mg 900 mg/hr, administered: 06/15/2020 1:06:00 AMNS [IV] IV Fluids bolus 1000 mL, then 1000 mL/hr, administered: 06/15/2020 1:07:00 AMProtonix [IVPB] IVPB bolus 0, then 40 mg 8 mg/hr, administered: 06/15/2020 1:12:00 AMThe following Medications were prescribed to the patient:Protonix 40 mg tablet,delayed release Take 1 tablet once a day for 30 days -- Dispense 30 tablet.Refills: 1. Substitution permitted. [address] [facility] Emergency Department [address] [place] [address] Phone #: ext- [phone] 06/15/2020 00:19 Patient: BRITNEY JUAREZ Sex: F : 1950 Age: 69yPharmacy - [facility] [address] [place] [address]. .Zofran 4 mg tablet Take 1 tablet four times a day as needed for 4 days -- Dispense 16 tablet. Refills: 0.Substitution permitted.Pharmacy - [facility] [address] [place] [address]. . -- Karin Snell M.D. Name Value Range Interpretation Code Description Data Theresa rce(s) Supporting Document(s) ID Date Data Source [id number] 06/15/2020 12:21:[address] [facility] [address] [facility] Emergency Department [address] [place] [address] Phone #: ext- [phone] 06/15/2020 00:19 Patient: BRITNEY JUAREZ Sex: F : 1950 Age: 69yWeight: 72.5 kgHeight/Length: 62 inBMI: 29.3ALLERGIES: Ambien, Fenofibrate, Lunesta, NSAIDs, Tramadol Date/Time Medication Administered Medication OrderedStart PHENERGAN [IVPB] Phenergan IV 25mg in 50mL NS,01:06 06/15/2020 Dose: 25 mg IVPB give wide open: 25 mg (NOW x1,Scott Hernandez RN Rate: 900 mg/hr HIGH ALERT MEDICATION)---- Bolus: 25 mgStop Dispensed: 50 mL bag01:11 06/15/2020 Site: #1 [facility] NS [IV] NS IV 500 mL Bolus: : Bolus 68637:07 06/15/2020 Dose: IV Fluids mL (X1)Scott Hernandez RN Rate: 1000 mL/hr---- Bolus: 1000 mLStop Dispensed: 1000 mL bag02:10 06/15/2020 Site: #1 [facility] PROTONIX [IVPB] (PANTOPRAZOLE Protonix IVPB 40 mg with01:12 06/15/2020 SODIUM) Dextrose 100 ml spike bag (D5W)Scott Hernandez RN Dose: 40 mg IVPB---- Rate: 8 mg/hrStop Dispensed: 100 mL bag01:32 06/15/2020 Site: #1 zaire Hernandez RN Name Value Range Interpretation Code Description Data Theresa rce(s) Supporting Document(s) ID Date Data Source [id number] 06/15/2020 12:21:[address] [facility] [address] 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 No perforation.INSTRUCTIONSAvoid alcohol and NSAIDS. NSAIDS include aspirin, ibuprofen (Advil) and naproxen (Aleve). Avoid fatty,fried/greasy, lactose-containing (such as milk, cheese and ice cream), salty and spicy foods. No alcohol.Do not smoke.Warnings: Further evaluation is necessary. It is very important to follow up with a healthcare provider.GENERAL WARNINGS: Return or contact your physician immediately if your condition worsens orchanges unexpectedly, if not improving as expected, or if other problems arise. SPECIFICALLY, return ifyou develop pain in the abdomen, pelvis or back, fever, vomiting, the inability to keep fluids down, blood invomitus, blood in diarrhea, fainting or lightheadedness.Your Current Medications: Your current home medications have been reviewed.CONTINUE TAKING THE FOLLOWING MEDICATIONS:Atorvastatin Calcium Oral : Tablet 10 mg, 1 tablet daily, at bedtime.Metoprolol Tartrate Oral : Tablet 100 mg, 1 tablet daily.Omeprazole Oral : 2x a day.Probiotic Formula Oral.Tension Headache Oral : Tablet 500-65 mg, 2 tablets, prn.traZODone HCl Oral : 50 mg daily, at bedtime.Zofran ODT Oral.Prescription Medications:Protonix 40 mg tablet,delayed release Take 1 tablet once a day for 30 days -- Dispense 30 tablet.Refills: 1. Substitution permitted.[facility] [employer] [address] [id number]. .Zofran 4 mg tablet Take 1 tablet four times a day as needed for 4 days -- Dispense 16 tablet. Refills: 0.Substitution permitted.[facility] [address] - [address] [place] [phone]. .Follow-up:Return to the emergency department as needed. Follow up with your healthcare provider in two days [address] [facility] Emergency Department [address] [place] [address] Phone #: ext- [phone] 06/15/2020 00:19 Patient: BRITNEY JUAREZ Sex: F : 1950 Age: 69yeven if well. Call for an appointment. Reason for referral: evaluation and treatment. Summary of careprovided to patient via paper.Understanding of the discharge instructions verbalized by patient. Expected course of illness, dischargeinstructions, activity level, diet, prescriptions x2, follow-up appointment and risks and benefits of treatmentreviewed with patient and understanding verbalized. Agrees to plan of care. ADDITIONAL INFORMATIONViral Gastroenteritis (Adult)Gastroenteritis is commonly called the "stomach flu," although it has nothing to do with influenza. It ismost often caused by a virus that affects the stomach and intestinal tract and usually lasts from 2 to 7days. Common viruses causing gastroenteritis include norovirus, rotavirus, and hepatitis A. Non-viralcauses of gastroenteritis include bacteria, parasites, and toxins.The danger from repeated vomiting or diarrhea is dehydration. This is the loss of too much fluid fromthe body. When this occurs, body fluids must be replaced. Antibiotics don't help with this illnessbecause it is usually viral. Simple home treatment will be helpful.Symptoms of viral gastroenteritis may include: [address] [facility] Emergency Department [address] [place] [address] Phone #: ext- [phone] 06/15/2020 00:19 Patient: BRITNEY JUAREZ Sex: F : 1950 Age: 69y Watery, loose stools Stomach pain or abdominal cramps Fever and chills Nausea and vomiting Loss of bowel control HeadacheHome careGastroenteritis is transmitted by contact with the stool or vomit of an infected person. This can occurfrom person to person or from contact with a contaminated surface.Follow these guidelines when caring for yourself at home: If symptoms are severe, rest at home for the next 24 hours or until you are feeling better. Wash your hands with soap and water or use alcohol-based sheet rock applicator to prevent the spread of infection. Wash your hands after touching anyone who is sick. Wash your hands or use alcohol-based sheet rock applicator after using the toilet and before meals. Clean the toilet after each use.Remember these tips when preparing food: People with diarrhea should not prepare or serve food to others. When preparing foods, wash your hands before and after. Wash your hands after using cutting boards, countertops, knives, or utensils that have been in contact with raw food. Dry your hands with a single use towel. Keep uncooked meats away from cooked and amkob-xc-hvx foods.MedicineYou may use acetaminophen or NSAID medicines like ibuprofen or naproxen to control fever unlessanother medicine was given. If you have chronic liver or kidney disease, talk with your healthcareprovider before using these medicines. Also talk with your provider if you've had a stomach ulceror gastrointestinal bleeding. Don't give aspirin to anyone under 18 years of age who is ill with a fever.It may cause severe liver damage. Don't use NSAIDS is you are already taking one for anothercondition (like arthritis) or are on aspirin (such as for heart disease or after a stroke). [address] [facility] Emergency Department [address] [place] [address] Phone #: ext- [phone] 06/15/2020 00:19 Patient: BRITNEY JUAREZ Sex: F : 1950 Age: 69yIf medicine for vomiting or diarrhea are prescribed, take these only as directed. Nausea and diarrheamedicines are generally OK unless you have bleeding, fever, or severe abdominal pain.DietFollow these guidelines for food: Water and liquids are important so you don't get dehydrated. Drink a small amount at a time or suck on ice chips if you are vomiting. If you eat, avoid fatty, greasy, spicy, or fried foods. Don't eat dairy if you have diarrhea. This can make diarrhea worse. Avoid tobacco, alcohol, and caffeine which may worsen symptoms.During the first 24 hours (the first full day), follow the diet below: Beverages. Sports drinks, soft drinks without caffeine, robert berta, mineral water (plain or flavored), decaffeinated tea and coffee. If you are very dehydrated, sports drinks aren't a good choice. They have too much sugar and not enough electrolytes. In this case, commercially available products called oral rehydration solutions, are best. Soups. Eat clear broth, consomm, and bouillon. Desserts. Eat gelatin, ice pops, and fruit juice bars.During the next 24 hours (the second day), you may add the following to the above: Hot cereal, plain toast, bread, rolls, and crackers Plain noodles, rice, mashed potatoes, chicken noodle or rice soup Unsweetened canned fruit (avoid pineapple), bananas Limit fat intake to less than 15 grams per day. Do this by avoiding margarine, butter, oils, mayonnaise, sauces, gravies, fried foods, peanut butter, meat, poultry, and fish. Limit fiber and avoid raw or cooked vegetables, fresh fruits (except bananas), and bran cereals. Limit caffeine and chocolate. Don't use spices or seasonings other than salt. Limit dairy products. Avoid alcohol.During the next 24 hours: Gradually resume a normal diet as you feel better and your symptoms improve. [address] [facility] Emergency Department [address] [place] [address] Phone #: ext- [phone] 06/15/2020 00:19 Patient: BRITNEY JUAREZ Sex: F : 1950 Age: 69y If at any time it starts getting worse again, go back to clear liquids until you feel better.Follow-up careFollow up with your healthcare provider, or as advised. Call your provider if you don't get better [id number] hours or if diarrhea lasts more than a week. Also follow up if you are unable to keep down liquidsand get dehydrated. If a stool (diarrhea) sample was taken, call as directed for the results.Call [phone] if any of these occur: Trouble breathing Chest pain Confused Severe drowsiness or trouble awakening Fainting or loss of consciousness Rapid heart rate Seizure Stiff neckWhen to seek medical adviceCall your healthcare provider right away if any of these occur: Abdominal pain that gets worse Continued vomiting (unable to keep liquids down) Frequent diarrhea (more than 5 times a day) Blood in vomit or stool (black or red color) Dark urine, reduced urine output, or extreme thirst Weakness or dizziness Drowsiness Fever of 100.4F (38C) or higher, or as directed by your healthcare provider Kvng Hodges General Instructions [facility] Emergency Department [address] [place] [address] Phone #: ext- [phone] 06/15/2020 00:19 Patient: BRITNEY JUAREZ Sex: F : 1950 Age: 69y [id number] [employer] [address] [place] [address], [place] [id number]. All rights reserved. This information is not intended as asubstitute for professional medical care. Always follow your healthcare professional's instructions.Peptic UlcerA peptic ulcer is an open sore in the lining of the stomach. It may also occur in the duodenum (firstpart of the small intestine).CausesThe most common causes of ulcers are: H. pylori bacteria infection Long-term use of nonsteroidal anti-inflammatory drugs (NSAIDs), such as aspirin or ibuprofenOther factors that can increase the risk for ulcers include older age and family history of peptic ulcers.Tobacco and alcohol use are also risk factors. Emotional stress, worry, and spicy foods are notcauses of peptic ulcers.SymptomsA peptic ulcer may or may not cause symptoms. If symptoms do occur, they can include: Dull or burning pain in the stomach region (anywhere between your belly button and breastbone) [address] [facility] Emergency Department [address] [place] [address] Phone #: ext- [phone] 06/15/2020 00:19 Patient: BRITNEY JUAREZ Sex: F : 1950 Age: 69y Loss of appetite Heartburn or upset stomach Frequent burping Bloated feeling Nausea or vomiting (vomit may be bloody or look like coffee grounds) Black, tarry, or bloody stools (which means the ulcer is bleeding)Sometimes the bleeding is not seen. In these cases, it may be discovered by symptoms of low bloodcount (anemia) such as dizziness, weakness, shortness of breath, pale skin, difficulty with exercise,or a blood test.If an ulcer is suspected, tests may be done to check for H. pylori infection. These can include blood,stool, or breath tests. Upper endoscopy (also called EGD) is usually done to check for ulcers andallows for samples (biopsies) to be taken and evaluated under the microscope. An X-ray test calledan upper GI series can be done in some situations but it could miss small ulcers that would be seenon the upper endoscopy.Without treatment, a peptic ulcer may worsen. This can lead to serious problems such as bleeding orperforation (a hole) in the stomach or duodenum. Treatment is needed to prevent these problems.Medicines are the most common treatment for peptic ulcers. In severe cases, surgery may beneeded.Home careMedicinesIf you're prescribed medicines, be sure to take them as directed. Common medicines prescribedinclude: Antibiotics. These kill H. pylori bacteria. In many cases, you'll need to take at least two types of antibiotics. The regimens can be complicated and require many medicines either at once, or taken in order. This is because this bacteria is often difficult to treat. It is very important to take the medicines as prescribed. Proton pump inhibitors. These block your stomach from making any acid. H2 blockers. These reduce the amount of acid your stomach makes. These are sometimes used for duodenal ulcers. Bismuth subsalicylate. This helps protect the lining of your stomach and duodenum from acid. [address] [facility] Emergency Department [address] [place] [address] Phone #: ext- [phone] 06/15/2020 00:19 Patient: BRITNEY JUAREZ Sex: F : 1950 Age: 69yGeneral care Don't take any NSAIDS without talking with your healthcare provider first. They may delay healing. Also check with your healthcare provider before taking any antacids. Don't use alcohol or tobacco. These may delay healing. They may also make symptoms worse.Follow-up careFollow up with your healthcare provider as directed. If testing was done, you'll be told the resultswhen they are ready. In some situations of gastric ulcer, a repeat upper endoscopy is needed tocheck for healing. Your healthcare provider may also do a test of cure after treatment for H. pylori.When to seek medical adviceCall your healthcare provider right away if any of these occur: Fever of 100.4F (38C) or higher, or as directed by your healthcare provider Stomach pain that worsens or moves to the lower right part of abdomen Continued weight loss Pale skin Fast heartbeat Weakness or dizziness Extreme fatigue Shortness of breath Frequent vomiting, blood in your vomit, or coffee ground- like substance in your vomit Black, tarry, or bloody stoolsCall 911Call 911 right away if any of these occur: Sudden or severe pain in the stomach region Stomach becomes rigid Low body temperature Unusually fast heart rate [address] [facility] Emergency Department [address] [place] [address] Phone #: ext- [phone] 06/15/2020 00:19 Patient: BRITNEY JUAREZ Sex: F : 1950 Age: 69y Chest pain appears or worsens, or spreads to the back, neck, shoulder, or arm Trouble breathing or swallowing Confusion Extreme drowsiness or trouble waking up Fainting Large amounts of blood present in vomit or stool [phone] [employer] [address] [place] [address]. All rights reserved. This information is not intended as asubstitute for professional medical care. Always follow your healthcare professional's instructions. You have been given the following additional information: Gastroenteritis, Viral (Adult) Peptic Ulcer Disease (All Causes)(Electronically signed by Karin Snell M.D. 06/15/2020 07:08) Name Value Range Interpretation Code Description Data Theresa rce(s) Supporting Document(s) ID Date Data Source [id number] 06/15/2020 12:21:[address] [facility] 1 Clinical Report - Nurses [facility] Emergency Department [address] [place] [address] Phone #: ext- [phone] 06/15/2020 00:19 Patient: BRITNEY JUAREZ Sex: F : 1950 Age: 69yTRIAGEHistorian: EMS and patient.Triage time: 00:20 06/15/2020.Chief Complaint: NAUSEA, VOMITING and DIARRHEA.Onset. (9 PM). ( At [facility] -30 May 2020. Had endoscopy which showed peptic ulcers.). She hashad vomiting (4). The vomiting has been bilious. She has had diarrhea. It has been watery. --00:229 Merissa Hernandez R.N.SEPSIS SCREEN: SIRS Screen: heart rate greater than 90. Sepsis Screen negative. No suspected orconfirmed signs of infection present. --00:32 06/15/20 Merissa Hernandez R.N.00:27 06/15/20. BP: 202/96. MAP: 131. HR: 99. RR: 16. O2 saturation: 94%. Temp: 98.2 F. Pain levelnow: 10. --00:32 06/15/20 Merissa Hernandez R.N.Last oral intake by patient was (meatballs with red sauce, around noon). --00:33 06/15/20 Merissa Hernandez R.N.Acuity: LEVEL 3. --00:36 06/15/20 Merissa Hernandez R.N.Weight: 72.5 kg measured. Height/Length: 62 inches Per Patient. BMI: 29.3. --00:20 06/15/20 Merissa Salcido R.N.MedicationsAtorvastatin Calcium Oral (Tablet 10 mg) 1 tablet, daily at bedtime. Metoprolol Tartrate Oral (Tablet 100 mg) 1 tablet, daily. Tension Headache Oral (Tablet 500-65 mg) 2 tablets, as needed. traZODone HCl Oral 50 mg, daily at bedtime. Zofran ODT Oral. --00:24 06/15/20 Merissa Hernandez R.N. Probiotic Formula Oral. --00:25 06/15/20 Merissa Hernandez R.N. Omeprazole Oral, 2x a day. --00:45 06/15/20 Merissa Hernandez R.N.AllergiesAmbien. (HALLUCINATIONS)Fenofibrate. (MAKES SKIN PEEL)Lunesta. (HALLUCINATIONS)NSAIDs.(itching)Tramadol. (HALLUCINATIONS) --00:24 06/15/20 Merissa Hernandez R.N.PROBLEMS: 2 Clinical Report - Nurses [facility] Emergency Department [address] [place] [address] Phone #: ext- [phone] 06/15/2020 00:19 Patient: BRITNEY JUAREZ Sex: F : 1950 Age: 69yHyperlipidemia.Hypercholesterolemia.Thrombocytopenia.Heart Disease.Gastroesophageal Reflux Disease.Hypertension.Vomiting.Primary (Essential) Thrombocytosis.COPD - Chronic Obstructive Pulmonary Disease.Nausea.Peptic Ulcer Disease.Common Iliac Aneurysms, B/L.Arthritis.Abdominal Pain.Coronary Artery Disease.Aortic Aneurysm.Diverticulitis. --00:27 06/15/20 Merissa Hernandez R.N.Rheumatoid Arthritis. --00:44 06/15/20 Merissa Hernandez R.N.ADDITIONAL SURGERIES:Aortic anuerysm stent placed.Bilateral Tubal Ligation.Cardiac Bypass.Cholecystectomy.Endoscopy.L wrist fx repair.Right wrist fx repair.Sigmoid resection.Tonsillectomy Adenoidectomy. --00:27 06/15/20 Merissa Hernandez R.N.HistorySOCIAL HX: Former smoker, end date 2013. Occasional alcohol use; consumes wine by the glass. Nodrug use. She was offered HIV testing but declined and hepatitis C testing but declined. She has nottraveled outside the [place]Infectious disease exposure: No infectious disease exposure. (No COvid test that was Negative in May, NoKnown exposure.).SELF HARM ASSESSMENT: Self harm assessment was performed. The patient answered "no" to thequestion(s) "Do you have thoughts of harming or killing yourself?", "Have you recently had thoughts aboutharming or killing others?" and "Do you have any dangerous items in your possession?".ABUSE ASSESSMENT: No report of abuse.FALL RISK ASSESSMENT: Fall risk assessment completed. Risk factors identified include nausea and 3 Clinical Report - Nurses [facility] Emergency Department [address] [place] [address], [place] [address] Phone #: ext- [phone] 06/15/2020 00:19 Patient: BRITNEY JUAREZ Sex: F : 1950 Age: 69y patient age greater than 65 years. Fall interventions initiated. Side rails up x2. Bed in low position. Brakes on. Call light in reach of patient. Instructed not to get up without assistance. --00:36 06/15/20 Merissa Hernandez R.N.PHYSICAL ASSESSMENTTo room via stretcher.GENERAL / NEURO / PSYCH: Alert. Oriented X 4. ( Wretching.).HEENT: Mucous membranes are pink.RESPIRATORY: Respirations not labored.[facility]: ( (Reports that Right PE and Right DVT was dx at [facility])). Capillary refill less than 2 seconds.GI / : The patient has had nausea and diarrhea. Emesis noted. Obesity. Abdominal tenderness inthe epigastric area ("sore" from wretching per pt). No blood in the stool.SKIN: Skin is warm and dry. --00:38 06/15/20 Merissa Hernandez R.N.NURSING PROGRESS NOTES00:48 06/15/2020 Site #1 started via IV in the left upper arm with an 20g angiocath; one attempt. Blooddrawn: rainbow set. Saline lock flushed with 10 mL saline. --01:13 06/15/20 Scott Hernandez RN 01:06 06/15/2020 Started 25 mg of Phenergan IVPB in bag #1 50 mL; bolus of 25 mg then at 900 mg/hr via site #1. via IV pump. Allergies verified and confirmed 5 rights. IV patency established. IV site checked: no pain, redness, or swelling. IV flushed thoroughly pre- and post-medication administration. Information reviewed with patient including reason for taking this medication, signs of allergic reaction and precautions. Verbalizes understanding. --01:16 06/15/20 Scott Hernandez RN 01:07 06/15/2020 Started bag #1 1000 mL IV Fluids NS; bolus of 1000 mL then at 1000 mL/hr via site #1 via IV pump. Allergies verified and confirmed 5 rights. IV patency established. IV site checked: no pain, redness, or swelling. IV flushed thoroughly pre- and post-medication administration. Information reviewed with patient including reason for taking this medication, signs of allergic reaction and precautions. Verbalizes understanding. --01:17 06/15/20 Scott Hernandez RN 01:11 06/15/2020 Phenergan IVPB via IV site #1 Discontinued: completed. Total amount infused: 50 mL. IV patency established. IV site checked: no pain, redness, or swelling. IV flushed thoroughly. --01:17 06/15/20 Scott Hernandez RN 01:12 06/15/2020 Started 40 mg of Protonix (Pantoprazole Sodium) IVPB in bag #1 100 mL; at 8 mg/hr via site #1. via IV pump. Allergies verified and confirmed 5 rights. IV patency established. IV site checked: no pain, redness, or swelling. IV flushed thoroughly pre- and post-medication administration. Information reviewed with patient including reason for taking this medication, signs of allergic reaction and precautions. Verbalizes understanding. --01:17 06/15/20 Scott Hernandez RN 01:32 06/15/2020 Protonix IVPB via IV site #1 Discontinued: completed. Total amount infused: 100 mL. --01:52 06/15/20 Scott Hernandez RN 02:10 06/15/2020 IV Fluids NS via IV site #1 Discontinued: discontinued upon discharge. Total amount 4 Clinical Report - Nurses [facility] Emergency Department [address] [place] [address] Phone #: ext- [phone] 06/15/2020 00:19 Patient: BRITNEY JUAREZ Sex: F : 1950 Age: 69y infused: 500 mL. IV patency established. IV site checked: no pain, redness, or swelling. IV flushed thoroughly. --02:20 06/15/20 Scott Hernandez RN.DISPOSITION / DISCHARGE Roscoe Coma Scale: 15- eyes open- spontaneous (4); best verbal response- oriented (5); best motor response- obeys commands (6). Condition at departure: improved. No learning barriers present. Discharge instructions provided and reviewed with the patient. Reviewed medication(s) side effects, precautions, dosing and course information. Prescription(s) sent electronically to pharmacy. Reviewed referral to family practice for followup. Reviewed bland diet and need for increased fluid intake. Patient verbalized understanding. Written instructions provided in [place]an. The patient was discharged home. She left ambulatory and via bus. --02:19 06/15/20 Scott Hernandez RN 02:17 06/15/20. BP: 177/89 (regular adult cuff) taken on the right arm, via an automated monitor, while lying. MAP: 118. HR: 94 (regular, normal rate and strong). RR: 19 (regular, unlabored and normal). O2 saturation: 95% on room air. Temp: 98.4 F (oral). Pain level now: 0/10. --02:19 06/15/20 Scott Hernandez RN Departure time: 02:19 06/15/2020. --02:06/15/20 Scott Hernandez RN.Locked/Released at 06/15/2020 02:20 by Scott Hernandez RN Name Value Range Interpretation Code Description Data Theresa rce(s) Supporting Document(s) ID Date Data Source [id number] 06/15/2020 12:21:[address] [facility] 1 Clinical Report - Physicians/Mid Levels [facility] Emergency Department [address] [place] [address] Phone #: ext- [phone] 06/15/2020 00:19 Patient: BRITNEY JUAREZ Sex: F : 1950 Age: 69y Time Seen: 00:21 06/15/2020; initial patient contact. Arrived- By ambulance. Historian- patient. Disposition decision: 01:45 06/15/2020.HISTORY OF PRESENT ILLNESS Chief Complaint: VOMITING and DIARRHEA. No recent travel. She has had moderate nausea and vomiting. The vomiting has occurred several times. She has had moderate diarrhea. This has occurred several times. No black stools, bloody stools, abdominal pain, flank pain or known contact with a sick individual. No change in routine. Has not recently been camping or on antibiotics. Possible bad food exposure. This started just prior to arrival and is still present but is improving. The illness is described as moderate. (pt was seen here on 05-07 and for same, sent to [place] on 05-22, had upper endoscopy which showed peptic ulcers; pt prescribed probiotic for that since; pt ate meatballs at noon and 9 pm, Sx''s started; pt is convinced it's the meatballs). Similar symptoms previously. Patient has had similar symptoms frequently. Recent medical care: The patient was seen recently at this facility.REVIEW OF SYSTEMSNo fever, muscle aches, difficulty with urination, dark urine or headache. No dizziness, sore throat, cough,chest pain or difficulty breathing. No excessive urination, skin rash, jaundice, back pain or faintingepisodes. No blurred vision. All other systems reviewed and are negative.PAST HISTORYSee nurses notes. Problems: Peptic Ulcer Disease. Rheumatoid Arthritis. Hyperlipidemia. Hypercholesterolemia. Thrombocytopenia. Heart Disease. Gastroesophageal Reflux Disease. Hypertension. Vomiting. Primary (Essential) Thrombocytosis. COPD - Chronic Obstructive Pulmonary Disease. 2 Clinical Report - Physicians/Mid Levels [facility] Emergency Department [address] [place] [address] Phone #: ext- [phone] 06/15/2020 00:19 Patient: BRITNEY JUAREZ Sex: F : 1950 Age: 69y Nausea. Peptic Ulcer Disease. Common Iliac Aneurysms, B/L. Arthritis. Abdominal Pain. Coronary Artery Disease. Aortic Aneurysm. Diverticulitis. Additional Surgeries: Aortic anuerysm stent placed. Bilateral Tubal Ligation. Cardiac Bypass. Cholecystectomy. Endoscopy. L wrist fx repair. Right wrist fx repair. Sigmoid resection. Tonsillectomy Adenoidectomy. Medications: Omeprazole Oral, 2x a day. Probiotic Formula Oral. Atorvastatin Calcium Oral (Tablet 10 mg) 1 tablet, daily at bedtime. Metoprolol Tartrate Oral (Tablet 100 mg) 1 tablet, daily. Tension Headache Oral (Tablet 500-65 mg) 2 tablets, as needed. traZODone HCl Oral 50 mg, daily at bedtime. Zofran ODT Oral. Allergies: Ambien. (HALLUCINATIONS) Fenofibrate. (MAKES SKIN PEEL) Lunesta. (HALLUCINATIONS) NSAIDs.(itching) Tramadol. (HALLUCINATIONS).SOCIAL HISTORYFormer smoker, end date 2013. Alcohol use; consumes wine occasionally. No drug use.ADDITIONAL NOTESThe nursing notes have been reviewed with agreement regarding the chief complaint, HPI, ROS, PMH andpatient medications and allergies.PHYSICAL EXAMVital Signs: 06/15/2020 00:27 BP: 202/96. MAP: 131. HR: 99. RR: 16. O2 saturation: 94%. Temp: 98.2 F. 3 Clinical Report - Physicians/Mid Levels [facility] Emergency Department [address] [place] [address] Phone #: ext- [phone] 06/15/2020 00:19 Patient: BRITNEY JUAREZ Sex: F : 1950 Age: 69y Pain level now: 01/14. Have been reviewed. Oxygen saturation normal. Appearance: Alert. Oriented X3. No acute distress. Anxious. Eyes: Pupils equal, round and reactive to light. Eyes normal inspection. ENT: Ears normal. Nose normal. Pharynx normal. Neck: Normal inspection. Neck supple. CVS: Normal heart rate and rhythm. Heart sounds normal. Pulses normal. Respiratory: No respiratory distress. Painless inspiration. Breath sounds normal. Abdomen: Soft and nontender. Bowel sounds normal. No organomegaly. No mass. Femoral pulses equal. Back: Normal inspection. No CVA tenderness. Skin: Skin warm and dry. Normal skin color. Normal skin turgor. Extremities: Extremities exhibit normal ROM. No lower extremity edema. Neuro: Oriented X 3. No motor deficit. No sensory deficit. Reflexes normal.LABS, X-RAYS, AND EKGLaboratory Tests: Laboratory tests have been ordered, with results reviewed and considered in themedical decision making process. CBC w Diff: (MINDY: 06/15/2020 00:30) ( MsgRcvd 06/15/2020 00:56) Final results Test Result Flag Units (Reference) CBC W/AUTOMATED DIFF COMPLETE BLOOD COUNT WBC 10.0 10/uL (4.2 - 11.0) RBC 4.67 10/uL (4.20 - 5.40) HEMOGLOBIN 14.9 g/dL (12.0 - 16.0) HEMATOCRIT 48.0 H % (37.0 - 47.0) MCV 102.8 H fL (81.0 - 101) MCH 31.9 pg (27.0 - 34.0) MCHC 31.0 g/dL (31.0 - 36.0) RDW 13.2 % (11.5 - 14.5) PLATELETS 225 10/uL (150 - 450) MPV 10.1 fL (7.4 - 10.4) NEUT 70.9 % (37.0 - 80.0) LYMPH 17.8 L % (25.0 - 40.0) MONO 5.7 % (3.0 - 8.0) EOS 4.3 % (0.0 - 7.0) BASO 0.7 % (0.0 - 2.5) %IG 0.6 H % (0.0 - 0.0) %NRBC 0.0 % (0.0 - 0.0) #NEUT 7.07 H 10/uL (2.00 - 6.90) #LYMPH 1.78 10/uL (0.60 - 3.40) #MONO 0.57 10/uL (0.00 - 0.90) #EOS 0.43 10/uL (0.00 - 0.70) #BASO 0.07 10/uL (0.00 - 0.20) #IG 0.06 10/uL (0.00 - 0.10) #NRBC 0.00 10/uL (0.00 - 0.00) MANUAL DIFF NOT INDICATED RBC MORPH NOT INDICATED CMP: (MINDY: 06/15/2020 00:30) ( MsgRcvd 06/15/2020 01:15) Final results Test Result Flag Units (Reference) COMPREHENSIVE METABOLIC PANEL COMPREHENSIVE METABOLIC PANEL 4 Clinical Report - Physicians/Mid Levels [facility] Emergency Department [address] [place] [address] Phone #: ext- [phone] 06/15/2020 00:19 Patient: BRITNEY JUAREZ Sex: F : 1950 Age: 69y SODIUM 142 mEq/L (134 - 153) POTASSIUM 4.2 mEq/L (3.6 - 5.0) CHLORIDE 104 mEq/L (98 - 107) CO2 24 MEQ/L (22 - 30) GLUCOSE 158 H MG/DL (65 - 110) BUN 12 MG/DL (7 - 21) CREATININE 0.9 MG/DL (0.7 - 1.5) BUN/CREAT 13 (8 - 27) TOTAL PROTEIN 6.8 G/DL (6.3 - 8.2) ALBUMIN 4.6 G/DL (3.9 - 5.0) GLOBULIN 2.2 L GM/DL (2.4 - 3.2) A/G RATIO 2.1 H (0.8 - 2.0) CALCIUM 9.8 MG/DL (8.4 - 10.2) TOTAL BILI 0.9 MG/DL (0.2 - 1.3) ALKALINE PHOS 99 U/L (38 - 126) SGOT/AST 23 U/L (5 - 40) SGPT/ALT 18 U/L (7 - 56) ANION GAP 14.0 mmol/L (8.0 - 16.0) AGE 69 yrs NON-AA GFR >60 mL/min AFR AMER GFR >60 Male GFR Interprentation 20-49 yrs >60 mL/min Normal 50-59 yrs >56 mL/min Normal 60-69 yrs >49 mL/min Normal 70-79yrs >42 mL/min Normal 80 and above >35 mL/min Normal Female GFR Interpretation 20-39 yrs >60 mL/min Normal 40-49 yrs >58 mL/min Normal 50-59 yrs >51 mL/min Normal 60-69 yrs >45 mL/min Normal 70-79 yrs >39 mL/min Normal 80 and above >32 mL/min Normal Lipase: (MINDY: 06/15/2020 00:30) ( MsgRcvd 06/15/2020 01:16) Final results Test Result Flag Units (Reference) LIPASE 44 U/L (13 - 60).PROGRESS AND PROCEDURESCourse of Care: 01:43 06/15/20. workup all in and reviewed and nml; pt feeling much better, no N/V/D inER; will d/c home w instructions and some Protonix and Zofran; pt agrees. Patient counseled in person regarding the patient's stable condition, test results, diagnosis and need for follow-up. Patient agrees with plan of care. Disposition: Condition: good and stable. Discharge decision based on the following: patient's condition is stable; patient's condition is improved; patient is ambulatory; patient is active; patient drinking fluids; patient's p ain is controlled; patient's exam is improved; no abnormal test results; improving condition on repeat evaluation; social support is good; transportation is available; follow-up is available; clinical impression is consistent with outpatient treatment.CLINICAL IMPRESSION Acute norovirus gastroenteritis. 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 No perforation. 5 Clinical Report - Physicians/Mid [facility] Emergency Department [address] [place] [address] Phone #: ext- [phone] 06/15/2020 00:19 Patient: BRITNEY JUAREZ Sex: F : 1950 Age: 69yINSTRUCTIONS Avoid alcohol and NSAIDS. NSAIDS include aspirin, ibuprofen (Advil) and naproxen (Aleve). Avoid fatty, fried/greasy, lactose-containing (such as milk, cheese and ice cream), salty and spicy foods. No alcohol. Do not smoke. Warnings: Further evaluation is necessary. It is very important to follow up with a healthcare provider. GENERAL WARNINGS: Return or contact your physician immediately if your condition worsens or changes unexpectedly, if not improving as expected, or if other problems arise. SPECIFICALLY, return if you develop pain in the abdomen, pelvis or back, fever, vomiting, the inability to keep fluids down, blood in vomitus, blood in diarrhea, fainting or lightheadedness. Your Current Medications: Your current home medications have been reviewed. CONTINUE TAKING THE FOLLOWING MEDICATIONS: Atorvastatin Calcium Oral : Tablet 10 mg, 1 tablet daily, at bedtime. Metoprolol Tartrate Oral : Tablet 100 mg, 1 tablet daily. Omeprazole Oral : 2x a day. Probiotic Formula Oral. Tension Headache Oral : Tablet 500-65 mg, 2 tablets, prn. traZODone HCl O ral : 50 mg daily, at bedtime. Zofran ODT Oral. Prescription Medications: Protonix 40 mg tablet,delayed release Take 1 tablet once a day for 30 days -- Dispense 30 tablet. Refills: 1. Substitution permitted. [employer] [address] [place] [address] ; [place], [place] [id number]. . Zofran 4 mg tablet Take 1 tablet four times a day as needed for 4 days -- Dispense 16 tablet. Refills: 0. Substitution permitted. [employer] [address] [place], [place] [id number]. . Follow-up: Return to the emergency department as needed. Follow up with your healthcare provider in two days even if well. Call for an appointment. Reason for referral: evaluation and treatment. Summary of care provided to patient via paper. Understanding of the discharge instructions verbalized by patient. Expected course of illness, discharge instructions, activity level, diet, prescriptions x2, follow-up appointment and risks and benefits of treatment reviewed with patient and understanding verbalized. Agrees to plan of care. 6 Clinical Report - Physicians/Mid Levels [facility] Emergency Department [address] [place] [address] Phone #: ext- [phone] 06/15/2020 00:19 --------- Patient: BRITNEY JUAREZ Sex: F : 1950 Age: 69y(Electronically signed by Karin Snell M.D. 06/15/2020 07:08) Name Value Range Interpretation Code Description Data Theresa rce(s) Supporting Document(s) ID Date Data Source [id number] 06/15/2020 01:15:[address] [facility] Name Value Range Interpretation Code Description Data Theresa rce(s) Supporting Document(s) Lipase [Enzymatic activity/volume] in Serum or Plasma 44 U/L 13 - 60 [facility] ID Date Data Source [id number] 06/15/2020 01:15:[address] [facility] Name Value Range Interpretation Code Description Data Theersa rce(s) Supporting Document(s) COMPREHENSIVE METABOLIC PANEL [facility] COMPREHENSIVE METABOLIC PANEL Sodium [Moles/volume] in Serum or Plasma 142 mEq/L 134 - 153 [facility] Potassium [Moles/volume] in Serum or Plasma 4.2 mEq/L 3.6 - 5.0 [facility] Chloride [Moles/volume] in Serum or Plasma 104 mEq/L 98 - 107 [facility] Carbon dioxide, total [Moles/volume] in Serum or Plasma 24 MEQ/L 22 - 30 [facility] Glucose [Mass/volume] in Serum or Plasma 158 MG/DL 65 - [address] [facility] BUN 12 MG/DL 7 - 21 [facility] al Creatinine [Mass/volume] in Serum or Plasma 0.9 MG/DL 0.7 - 1.5 [facility] BUN/CREAT 13 8 - 27 [facility] al Protein [Mass/volume] in Serum or Plasma 6.8 G/DL 6.3 - 8.2 [facility] Albumin [Mass/volume] in Serum or Plasma 4.6 G/DL 3.9 - 5.0 [facility] Globulin [Mass/volume] in Serum by calculation 2.2 GM/DL 2.4 - 3.[address] [facility] A/G RATIO 2.1 0.8 - 2.0 H [facility] Calcium [Mass/volume] in Serum or Plasma 9.8 MG/DL 8.4 - 10.2 [facility] Bilirubin.total [Mass/volume] in Serum or Plasma 0.9 MG/DL 0.2 - 1.3 [facility] Alkaline phosphatase [Enzymatic activity/volume] in Serum or Plasma 99 U/L 38 - 126 [facility] Aspartate aminotransferase [Enzymatic activity/volume] in Serum or Plasma 23 U/L 5 - 40 [facility] Alanine aminotransferase [Enzymatic activity/volume] in Seru m or Plasma 18 U/L 7 - 56 [facility] Anion gap 3 in Serum or Plasma 14.0 mmol/L 8.0 - 16.0 [facility]GE 69 [facility] >60 mL/min [facility] ital AFR AMER GFR >60 [facility] Male GFR In terprentation 20-49 yrs >60 mL/min Normal 50-59 yrs >56 mL/min Normal 60-69 yrs >49 mL/min Normal 70-79yrs >42 mL/min Normal 80 and above >35 mL/min Normal Female GFR Interpretation 20-39 yrs >60 mL/min Normal 40-49 yrs >58 mL/min Normal 50-59 yrs >51 mL/min Normal 60-69 yrs >45 mL/min Normal 70-79 yrs >39 mL/min Normal 80 and above >32 mL/min Normal ID Date Data Source [id number] 06/15/2020 12:56:[address] [facility] Name Value Range Interpretation Code Description Data Theresa rce(s) Supporting Document(s) CBC W/AUTOMATED DIFF [facility] COMPLETE BLOOD COUNT Leukocytes [#/volume] in Blood by Automated count 10.0 10^3/uL 4.2 - 11.0 [facility] Erythrocytes [#/volume] in Blood by Automated count 4.67 10^6/uL 4. 20 - 5.40 [facility] Hemoglobin [Mass/volume] in Blood 14.9 g/dL 12.0 - 16.0 [facility] Hematocrit [Volume Fraction] of Blood by Automated count 48.0 % 3 7.0 - 47.[address] [facility] Erythrocyte mean corpuscular volume [Entitic volume] b y Automated count 102.8 fL 81.0 - [address] [facility] Erythrocyte mean corpuscular hemoglobin [Entitic mass] by Automated count 31.9 pg 27.0 - 34.0 [facility] Erythrocyte mean corpuscular hemoglobin concentration [Mass/volume] by Automated count 31.0 g/dL 31.0 - 36.0 [facility] Erythrocyte distribution width [Ratio] by Automated count 13.2 % 11.5 - 14.5 [facility] Platelets [#/volume] in Blood by Automated count 225 10^3/uL 150 - [address] [facility] Platelet mean volume [Entitic volume] in Blood by Automated count 10.1 fL 7.4 - 10.4 [facility] Neutrophils/100 leukocytes in Blood by Automated count 70.9 % 37. 0 - 80.0 [facility] Lymphocytes/100 leukocytes in Blood by Manual count 17.8 % 25.0 - 40.[address] [facility] Monocytes/100 leukocytes in Blood by Automated count 5.7 % 3.0 - 8.0 [facility] Eosinophils/100 leukocytes in Blood by Automated count 4.3 % 0.0 - 7.0 [facility] Basophils/100 leukocytes in Blood by Automated count 0.7 % 0.0 - 2.5 [facility] %IG 0.6 % 0.0 - 0.0 H [facility] al %NRBC 0.0 % 0.0 - 0.0 [facility] al Neutrophils [#/volume] in Blood by Automated count 7.07 10^3/uL 2.00 - 6.[address] [facility] Lymphocytes [#/volume] in Blood by Automated count 1.78 10^3/uL 0.60 - 3.40 [facility] Monocytes [#/volume] in Blood by Automated count 0.57 10^3/uL 0.00 - 0.90 [facility] Eosinophils [#/volume] in Blood by Automated count 0.43 10^3/uL 0.00 - 0.70 [facility] Basophils [#/volume] in Blood by Automated count 0.07 10^3/uL 0.00 - 0.20 [facility] #IG 0.06 10^3/uL 0.00 - 0.10 [facility] ospital #NRBC 0.00 10^3/uL 0.00 - 0.00 [facility] ospital MANUAL DIFF NOT INDICATED [facility] RBC MORPH NOT INDICATED [facility] spital ID Date Data Source [id number] 06/06/2020 10:48:[address] [facility] Name Value Range Interpretation Code Description Data Theresa rce(s) Supporting Document(s) COMPREHENSIVE METABOLIC PANEL [facility] COMPREHENSIVE METABOLIC PANEL Sodium [Moles/volume] in Serum or Plasma 145 mEq/L 134 - 153 [facility] Potassium [Moles/volume] in Serum or Plasma 4.0 mEq/L 3.6 - 5.0 [facility] Chloride [Moles/volume] in Serum or Plasma 107 mEq/L 98 - 107 [facility] Carbon dioxide, total [Moles/volume] in Serum or Plasma 28 MEQ/L 22 - 30 [facility] Glucose [Mass/volume] in Serum or Plasma 137 MG/DL 65 - [address] [facility] BUN 13 MG/DL 7 - 21 [facility] al Creatinine [Mass/volume] in Serum or Plasma 0.7 MG/DL 0.7 - 1.5 [facility] BUN/CREAT 19 8 - 27 [facility] al Protein [Mass/volume] in Serum or Plasma 5.9 G/DL 6.3 - 8.[address] [facility] Albumin [Mass/volume] in Serum or Plasma 3.8 G/DL 3.9 - 5.[address] [facility] Globulin [Mass/volume] in Serum by calculation 2.1 GM/DL 2.4 - 3.[address] [facility] A/G RATIO 1.8 0.8 - 2.0 [facility] Calcium [Mass/volume] in Serum or Plasma 9.2 MG/DL 8.4 - 10.2 [facility] Bilirubin.total [Mass/volume] in Serum or Plasma <0.7 MG/DL 0.2 - 1.3 [facility] Alkaline phosphatase [Enzymatic activity/volume] in Serum or Plasma 93 U/L 38 - 126 [facility] Aspartate aminotransferase [Enzymatic activity/volume] in Serum or Plasma 21 U/L 5 - 40 [facility] Alanine aminotransferase [Enzymatic activity/volume] in Seru m or Plasma 21 U/L 7 - 56 [facility] Anion gap 3 in Serum or Plasma 10.0 mmol/L 8.0 - 16.0 [facility] AGE 69 yrs [facility] al NON-AA GFR >60 mL/min [facility] ital AFR AMER GFR >60 [facility] Male GFR In terprentation 20-49 yrs >60 mL/min Normal 50-59 yrs >56 mL/min Normal 60-69 yrs >49 mL/min Normal 70-79yrs >42 mL/min Normal 80 and above >35 mL/min Normal Female GFR Interpretation 20-39 yrs >60 mL/min Normal 40-49 yrs >58 mL/min Normal 50-59 yrs >51 mL/min Normal 60-69 yrs >45 mL/min Normal 70-79 yrs >39 mL/min Normal 80 and above >32 mL/min Normal ID Date Data Source [id number] 06/06/2020 10:44:[address] [facility] Name Value Range Interpretation Code Description Data Theresa rce(s) Supporting Document(s) Erythrocyte sedimentation rate by Shaunren method 4 mm/hr 0 - 30 [facility] SED RATE REENTER 4 [facility] ID Date Data Source [id number] 06/06/2020 10:43:[address] [facility] Name Value Range Interpretation Code Description Data Theresa rce(s) Supporting Document(s) C reactive protein [Mass/volume] in Serum or Plasma by High sensitivity method 1.23 MG/L 1.00 - 3.00 [facility] CDC/S HS-CRP CUT-OFF: RELATIVE RISK: <1.0 mg/L Low 1.0 - 3.0 mg/L Average >3.0 mg/L High Optimally, the average of HS-CRP results repeated two weeks apart should be used for risk assessment. ID Date Data Source [id number] 06/06/2020 10:13:[address] [facility] Name Value Range Interpretation Code Description Data Theresa rce(s) Supporting Document(s) CBC W/AUTOMATED DIFF [facility] COMPLETE BLOOD COUNT Leukocytes [#/volume] in Blood by Automated count 9.0 10^3/uL 4.2 - [address] [facility] Erythrocytes [#/volume] in Blood by Automated count 3.99 10^6/uL 4. 20 - 5.[address] [facility] Hemoglobin [Mass/volume] in Blood 13.2 g/dL 12.0 - 16.0 [facility] Hematocrit [Volume Fraction] of Blood by Automated count 42.4 % 3 7.0 - 47.0 [facility] Erythrocyte mean corpuscular volume [Entitic volume] b y Automated count 106.3 fL 81.0 - [address] [facility] Erythrocyte mean corpuscular hemoglobin [Entitic mass] by Automated count 33.1 pg 27.0 - 34.0 [facility] Erythrocyte mean corpuscular hemoglobin concentration [Mass/volume] by Automated count 31.1 g/dL 31.0 - 36.0 [facility] Erythrocyte distribution width [Ratio] by Automated count 13.8 % 11.5 - 14.5 [facility] Platelets [#/volume] in Blood by Automated count 239 10^3/uL 150 - [address] [facility] Platelet mean volume [Entitic volume] in Blood by Automated count 10.3 fL 7.4 - 10.4 [facility] Neutrophils/100 leukocytes in Blood by Automated count 71.0 % 37. 0 - 80.0 [facility] Lymphocytes/100 leukocytes in Blood by Manual count 14.7 % 25.0 - 40.[address] [facility] Monocytes/100 leukocytes in Blood by Automated count 7.0 % 3.0 - 8.0 [facility] Eosinophils/100 leukocytes in Blood by Automated count 6.2 % 0.0 - 7.0 [facility] Basophils/100 leukocytes in Blood by Automated count 0.7 % 0.0 - 2.5 [facility] %IG 0.4 % 0.0 - 0.0 H [facility] al %NRBC 0.0 % 0.0 - 0.0 [facility] al Neutrophils [#/volume] in Blood by Automated count 6.39 10^3/uL 2.00 - 6.90 [facility] Lymphocytes [#/volume] in Blood by Automated count 1.32 10^3/uL 0.60 - 3.40 [facility] Monocytes [#/volume] in Blood by Automated count 0.63 10^3/uL 0.00 - 0.90 [facility] Eosinophils [#/volume] in Blood by Automated count 0.56 10^3/uL 0.00 - 0.70 [facility] Basophils [#/volume] in Blood by Automated count 0.06 10^3/uL 0.00 - 0.20 [facility] #IG 0.04 10^3/uL 0.00 - 0.10 [facility] ospital #NRBC 0.00 10^3/uL 0.00 - 0.00 [facility] ospital MANUAL DIFF NOT INDICATED [facility] RBC MORPH NOT INDICATED [facility] spital ID Date Data Source [id number] 06/03/2020 12:21:00 PM EDT [id number] [place] [place], [place] [address]FPVUJOU NAME: NAKITA JUAREZ OF : 1950REPORT: DISCHARGE SUMMARYPATIENT NUMBER: [id number] STATUS: IPMEDICAL RECORD NUMBER: [id number] OF ADMISSION: 05/22/2020DATE OF DISCHARGE:ROOM: 01INTERIM DISCHARGE SUMMARYDISCHARGE DIAGNOSES:1. Large duodenal ulcer causing gastric outlet obstruction.2. DVT and PE, undergone IVC filter.3. CAD status post CABG.4. Hyperlipidemia.5. COPD.HOSPITAL COURSE: Ms. Britney Juarez is a 69-year-old female with history ofCAD status post CABG, COPD, abdominal aortic aneurysm status post repair,hypertension, who transferred for evaluation of intractable vomiting andintermittent diarrhea. The patient had a CT done outside that was showinggastric antrum and proximal duodenal wall thickening and patient referredfor EGD. Patient seen by GI and undergone EGD on 05/22/2020 that wasshowing large duodenal ulcer causing gastric outlet obstruction. Thepatient kept n.p.o. and started on IV PPI drip. The patient had CT abdomendone that was concerning for PE, so CT chest done that showed segmental andsubsegmental pulmonary embolism and also lower extremity Doppler waspositive for DVT. Because of large duodenal ulcer, GI recommended to avoidanticoagulation. The patient undergone IVC filter. Had small bowel seriesdone that was negative. EGD was repeated that showed improvement in theduodenal ulcer and no more gastric ulcer obstruction. Recommended tofollow up the pathology results and PPI for 2 months and repeat EGD in 2months. Patient will likely be discharged tomorrow as she does not have aride available.This is an interim discharge summary. An addendum to this dischargesummary will be done by one of my colleagues.DICTATED BY: CORY Castanonictated: 05/30/2020 8:33DT: 05/30/2020 8:36Job #: [id number]:NOTE: [facility] computer generated reports are notconfirmed or authenticated unless they are signed by the providerElectronically Authenticated by:BETH POTTER MD On 06/03/2020 12:21 PM EDT Name Value Range Interpretation Code Description Data Theresa rce(s) Supporting Document(s) ID Date Data Source [id number] 05/31/2020 10:01:06 AM EDT [facility] LABORATORY [facility] [place], [place] [address]Sog# SURGICAL PATHOLOGY REPORTPatient Name:LUIS JUAREZB:1950Received:05/30/2020Accession #:[id number](s) Received: A: Duodenal stricture bxB: Stomach antrum and body bx, r/o H pyloriClinical Diagnosis and History: Gastric outlet obstruction. DIAGNOSIS:A) DUODENAL STRICTURE, BIOPSY SMALL BOWEL MUCOSA WITH FOCAL PROMINENT MICKIE GLANDS. NO DUODENITIS OR DYSPLASIA IDENTIFIED. B) STOMACH, ANTRUM AND BODY, BIOPSY REACTIVE GASTROPATHY AND MILD CHRONIC G ASTRITIS. NO HELICOBACTER LIKE ORGANISMS IDENTIFIED. GROSS DESCRIPTION: Specimen A received in formalin labeled "duodenal stricture biopsy" arefour soft loving irregular tissues varying from minute to 0.3 x 0.2 cm. Thespecimen is submitted in toto for microscopic examination. (1 block) Specimen B received in formalin labeled "stomach antrum and body biopsy"are two soft loving irregular tissues averaging 0.5 x 0.2 cm. The specimenis submitted in toto for microscopic examination. (1 block) [email or web address]: 05/31/2020Electronically Signed Out By Bishnu Vieira M.D. [facility] [place], [place] [address]Technical component performed at [facility], Histopathology, [address] [place] [address], [facility].Reported at [facility], [address] [place] [address], [facility].This report may include immunohistochemical or in-situ hybridizationresults. Testing was developed and the performance characteristicsdetermined by [facility], as required byCLIA '88. The FDA has determined that approval for specific use is notnecessary for clinical use. The quality of Hematoxylin and Eosin stainsand as applicable, for all immunohistochemical and/or special stains,including positive and negative controls, were reviewed and consideredappropriate.ICD codes: K29.70CPT4 codes: A: 93827BM: 91300K Name Value Range Interpretation Code Description Data Theresa rce(s) Supporting Document(s) ID Date Data Source [id number] 05/28/2020 07:05:11 AM EDT [facility] Name Value Range Interpretation Code Description Data Theresa rce(s) Supporting Document(s) WBC 5.0 10*3/uL (4.1-11.0) [facility] [place] RBC 3.81 10*6/uL (4.00-5.40) L [facility] HGB 12.9 g/dL (12.0-16.0) [facility] HCT 40.0 % (36.0-47.0) [facility] MCV 104.9 fL (80.0-95.0) H [facility] MCH 33.7 pg (27.0-32.0) [facility] MCHC 32.2 g/dL (32.0-36.0) [facility] RDW 16.0 % (10.5-14.5) [facility] PLT 190 10*3/uL (150-450) [facility] MPV 8.2 fL (7.1-10.7) [facility] ID Date Data Source [id number] 05/28/2020 06:58:13 AM EDT [facility] Name Value Range Interpretation Code Description Data Theresa rce(s) Supporting Document(s) SODIUM 148 mmol/L (136-145) H [facility] POTASSIUM 3.5 mmol/L (3.6-5.2) L [facility] CHLORIDE 112 mmol/L (100-108) [facility] CO2 29 mmol/L (22-31) [facility] ANION GAP 7 mmol/L (7-16) [facility] UREA NITROGEN 4 mg/dL (7-24) L [facility] CREATININE 0.87 mg/dL (0.60-1.00) [facility] BUN/CREAT RATIO 4.6 RATIO (10.0-20.0) L [facility] GLUCOSE 108 mg/dL (70-99) H [facility] CALCIUM 8.0 mg/dL (8.4-10.2) L [facility] GFR >60 ml/min/1.73m2 (>59) [facility] GFR ( AMER) >60 ml/min/1.73m2 (>59) [facility] [place] --NORMAL KIDNEY FUNCTION OR MILD DISEASE - GFR >OR= 60CHRONIC KIDNEY DISEASE - GFR 15 - 59RENAL FAILURE - GFR <15 Est. GFR calculation based on the MDRDstudy equation, which assumes a steadystate for creatinine. Est. GFR should notbe used for medication dosing. ID Date Data Source [id number] 05/26/2020 04:02:00 PM EDT [facility] DATE OF EXAM: 05/26/2020EXAM: Small eric l follow-through. Radiation exposure time: 1.5 minutes After the administration of oral contrast. Serial images of the abdomen were obtained. There is a normal progression of barium through the small bowel demonstrating a normal mucosal fold pattern. No focal stricture, obstruction or abnormal separation of bowel loops is seen. Contrast is seen entering the colon at approximately 60 minutes. Spot views of the small bowel and terminal ileum are unremarkable. IMPRESSION: Negative small bowel follow- through. Professional interpretation performed at [facility] .End of diagnostic report for accession: [id number] Interpreted: Bennett Bess MDTranscribed: 05/26/2020 04:00 PMSigned: 05/26/2020 04:02 PM Bennett Bess MD -- N: [id number] [facility] # [id number] [facility] # [id number] Name Value Range Interpretation Code Description Data Theresa rce(s) Supporting Document(s) ID Date Data Source [id number] 05/25/2020 04:34:00 PM EDT [facility] DATE OF EXAM: 05/25/2020IVC FILTER PLACE MENT INDICATION: DVT and PE. PROCEDURE: Using ultrasound guidance, the right common femoral vein was accessed and the filter introducer sheath was placed. Contrast injection was utilized for determining renal vein location. After adjusting the filter sheath, a Cook Celect IVC filter was deployed. Post deployment fluoroscopic imaging showed good alignment within the IVC. The sheath was removed and hemostasis was achieved. IMPRESSION: IVC filter placement. Conscious sedation: None Fluoroscopy time: 1 minute 6 seconds Number of fluoroscopic images saved: 2 Professional interpretation performed at [facility] End of diagnostic report for accession: [id number] Interpreted: Marito Choudhury MDTranscribed: 05/25/2020 04:32 PMSigned: 05/25/2020 04:34 PM Marito Choudhury MD [facility] # [id number] BILL # [id number] Name Value Range Interpretation Code Description Data Theresa rce(s) Supporting Document(s) ID Date Data Source [id number] 05/25/2020 12:15:02 PM EDT [facility] Name Value Range Interpretation Code Description Data Theresa rce(s) Supporting Document(s) POC GLUCOSE 101 mg/dL (70-99) H [facility] PERFORMED BY CLINICAL STAFF ID Date Data Source [id number] 05/25/2020 03:05:01 AM EDT [facility] Name Value Range Interpretation Code Description Data Theresa rce(s) Supporting Document(s) POC GLUCOSE 91 mg/dL (70-99) [facility] PERFORMED BY CLINICAL STAFF ID Date Data Source [id number] 05/24/2020 07:42:25 PM EDT [facility] Name Value Range Interpretation Code Description Data Theresa rce(s) Supporting Document(s) POC GLUCOSE 73 mg/dL (70-99) [facility] NOTIFIED NURSEPERFORMED BY CLINICAL S TAFF ID Date Data Source [id number] 05/24/2020 06:15:51 PM EDT [facility] Name Value Range Interpretation Code Description Data Theresa rce(s) Supporting Document(s) APTT 28.1 s (22.0-34.3) [facility] ID Date Data Source [id number] 05/24/2020 06:15:51 PM EDT [facility] Name Value Range Interpretation Code Description Data Theresa rce(s) Supporting Document(s) PT 11.0 s (9.2-11.9) [facility] INR 1.05 [facility] SUGGESTED THERAPEUTIC RANGES USING INR F ORSTABILIZED ANTICOAGULATED PATIENTS:STANDARD DOSE THERAPY INR 2.0-3.0 DVT, PE, PREVENT DVT OR EMBOLISMHIGH DOSE THERAPY INR 2.5-3.5 PREVENT EMBOLISM FROM MECHANICAL HEART VALVE ID Date Data Source [id number] 05/24/2020 06:00:54 PM EDT [facility] Name Value Range Interpretation Code Description Data Theresa rce(s) Supporting Document(s) WBC 9.3 10*3/uL (4.1-11.0) [facility] [place] RBC 3.85 10*6/uL (4.00-5.40) L [facility] HGB 12.9 g/dL (12.0-16.0) [facility] HCT 40.9 % (36.0-47.0) [facility] MCV 106.4 fL (80.0-95.0) H [facility] MCH 33.4 pg (27.0-32.0) H [facility] MCHC 31.5 g/dL (32.0-36.0) L [facility] RDW 17.1 % (10.5-14.5) H [facility] PLT 248 10*3/uL (150-450) [facility] MPV 8.4 fL (7.1-10.7) [facility] ID Date Data Source [id number] 05/24/2020 05:21:30 PM EDT [facility] Name Value Range Interpretation Code Description Data Theresa rce(s) Supporting Document(s) POC GLUCOSE 62 mg/dL (70-99) L [facility] NOTIFIED NURSEPERFORMED BY ALEJANDRO SOSA ID Date Data Source [id number] 05/24/2020 03:14:00 [facility]: [facility] CHEST WITH CO NTRAST CLINICAL HISTORY: PULMONARY EMBOLI VISUALIZED ON CT OF ABDOMEN COMPARISON: 04/28/[address] abdomen and pelvis dated 05/23/2020. CONTRAST: 75 mL IV Omnipaque 350 TECHNIQUE: Axial CT images were obtained of the chest were obtained with contrast. Additional coronal and sagittal reformatted images were obtained. One or more of the following dose reduction techniques were utilized in effectively lowering the radiation dose for this examination: Automated Exposure Control, Adjustment of the mA and/or kV according to patient size, or Iterative reconstruction. FINDINGS: Lines and devices: None. Lungs: There is mild centrilobular emphysema. There is right basilar scarring/atelectasis. Large airways: Unremarkable. Mediastinum and chadd: Unremarkable. Pleura: Unremarkable. Vessels: There are bilateral lower lobe segmental and subsegmental pulmonary emboli. Atherosclerotic calcifications are visualized throughout the aorta and its major branches. Heart: Coronary artery calcifications are seen. Chest wall/tissues: Unremarkable. Bones: Multilevel degenerative changes. Upper abdomen: Bilateral adrenal gland nodularity is again seen. IMPRESSION: Bilateral lower lobe segmental and subsegmental pulmonary emboli are seen. Professional interpretation performed at [facility] .End of diagnostic report for accession: [id number] Interpreted: Kraig Bautistaranscribed: 05/24/2020 03:05 PMSigned: 05/24/2020 03:14 PM Kraig Bautista DO [facility] # [id number] [facility] # [id number] Name Value Range Interpretation Code Description Data Theresa rce(s) Supporting Document(s) ID Date Data Source [id number] 05/24/2020 08:17:28 AM EDT [facility] Name Value Range Interpretation Code Description Data Theresa rce(s) Supporting Document(s) POC GLUCOSE 70 mg/dL (70-99) [facility] NOTIFIED NURSEPERFORMED BY CLINICAL S TAFF ID Date Data Source [id number] 05/24/2020 06:49:25 AM EDT [facility] Name Value Range Interpretation Code Description Data Theresa rce(s) Supporting Document(s) SODIUM 144 mmol/L (136-145) [facility] POTASSIUM 3.6 mmol/L (3.6-5.2) [facility] CHLORIDE 108 mmol/L (100-108) [facility] CO2 27 mmol/L (22-31) [facility] ANION GAP 9 mmol/L (7-16) [facility] UREA NITROGEN 7 mg/dL (7-24) [facility] CREATININE 0.78 mg/dL (0.60-1.00) [facility] BUN/CREAT RATIO 9.0 RATIO (10.0-20.0) L [facility] GLUCOSE 68 mg/dL (70-99) L [facility] CALCIUM 8.3 mg/dL (8.4-10.2) L [facility] GFR >60 ml/min/1.73m2 (>59) [facility] GFR ( AMER) >60 ml/min/1.73m2 (>59) [facility] GFR INTERPRETATION Lab [facility] [place] --NORMAL KIDNEY FUNCTION OR MILD DISEASE - GFR >OR= 60CHRONIC KIDNEY DISEASE - GFR 15 - 59RENAL FAILURE - GFR <15 Est. GFR calculation based on the MDRDstudy equation, which assumes a steadystate for creatinine. Est. GFR should notbe used for medication dosing. ID Date Data Source [id number] 05/24/2020 02:39:41 PM EDT [facility] SPECIMEN DESCRIPTION STOOLRESULT NEGATIVE FOR H. PYLORI ANTIGEN BY EIAREPORT STATUS FINAL 05/24/2020 Name Value Range Interpretation Code Description Data Theresa rce(s) Supporting Document(s) ID Date Data Source [id number] 05/23/2020 08:42:00 PM EDT [facility] [address] [place] [address] RESPIRATORY CARE REPORT ==== ---------NAME------- NUMBER SEX AGE ADMIT DISC. XRAY# F/C TYPECLEMONS BRITNEY Thomson [id number] F 69 05/22/20 05/22/20 [id number] MB3 E/R DATE OF : 1950 M/R# [id number] #: [id number] TR-02 LOCATION: EMERGENCY DEPT EKG [id number] COMP LETE:05/22/20 08:12 [facility] [id number] PHYSICIAN: MARYCHUY PABON Name Value Range Interpretation Code Description Data Theresa rce(s) Supporting Document(s) ID Date Data Source [id number] 05/23/2020 05:37:00 PM EDT [facility] DATE OF EXAM: 05/23/2020EXAM: Ultrasound vascular: Bilateral lower extremity venous Doppler. CLINICAL HISTORY: R/O DVT COMPARISON: None. TECHNIQUE: Duplex imaging with color-flow Doppler and spectral analysis was used to study the deep venous system from the common femoral to the calf. A combination of compressibility and flow augmentation was utilized to assess patency. FINDINGS: Right: There is nonocclusive thrombus in the right popliteal vein and distal femoral vein. Flow is identified in the common femoral, posterior tibial, anterior tibial and peroneal veins. Flow identified in the greater saphenous vein. There is no evidence of deep venous thrombosis. Left: Flow is identified in the common femoral, femoral, popliteal, posterior tibial, anterior tibial and peroneal veins. Flow identified in the greater saphenous vein. There is no evidence of deep venous thrombosis. IMPRESSION: Nonocclusive thrombus in the distal right femoral and popliteal veins. No evidence of left deep venous t hrombosis. Findings were called by business investor to Edson on 05/23/2020 at 1727 hours Professional interpretation performed at [facility] .End of diagnostic report for accession: [id number] Interpreted: Michelle Newberry MDTranscribed: 05/23/2020 05:34 PMSigned: 05/23/2020 05:37 PM Michelle Newberry MD [facility] ACC # [id number] BILL # [id number] Name Value Range Interpretation Code Description Data Theresa rce(s) Supporting Document(s) ID Date Data Source [id number] 05/23/2020 03:04:00 PM EDT [facility] DATE OF EXAM: 05/23/2020CT ABDOMEN AND P KIERSTEN WITH AND WITHOUT CONTRAST CLINICAL HISTORY: BLEEDING- GI COMPARISON: None. CONTRAST: With and without 100 mL Omnipaque 300 intravenous contrast. TECHNIQUE: Axial CT images were obtained of the abdomen and pelvis with and without contrast. Additional coronal and sagittal reformatted images were obtained. One or more of the following dose reduction techniques were utilized in effectively lowering the radiation dose for this examination: Automated Exposure Control, Adjustment of the mA and/or kV according to patient size, or Iterative reconstruction. FINDINGS: Lung bases: Left lower lobe subsegmental PEs are identified. Liver: Unremarkable. Bile ducts: No intra or extrahepatic biliary dilatation is identified. Gallbladder: Surgically absent. Spleen: Unremarkable. Pancreas: Diffusely atrophic without evidence of underlying mass. No pancreatic ductal dilatation is identified Adrenals: 1.8 cm right adrenal nodule measuring less than 10 Hounsfield units on noncontrast imaging consistent with a lipid rich adenoma. 2.9 cm right adrenal nodule measuring less than 10 Hounsfield units consistent with a lipid rich adenoma. Kidneys/ureters: 5.8 cm exophytic left lower pole simple renal cyst. Bilateral multifocal cortical thinning. Bowel: Diverticulosis without evidence of diverticulitis. Patent sigmoid anastomotic sutures in place. The appendix is well-visualized and nondilated. Lymph nodes: Unremarkable. Vessels: The celiac axis, SMA, renal arteries, and ALLAN are patent. 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 Reproductive organs: Unremarkable. Bladder: Unremarkable. Bones: Mild degenerative disease. IMPRESSION: 1. Incidentally noted left lower lobe subsegmental PEs are identified. 2. No acute intra-abdominal pathology is identified with numerous chronic findings outlined above. These findings were discussed with Elida charge nurse on 4Sir on 05/23/2020 at 15:01 hours over the phone who expressed understanding. Professional interpretation performed at [facility] .End of diagnostic report for accession: [id number] Interpreted: Bennett Krause MDTranscribed: 05/23/2020 02:49 PMSigned: 05/23/2020 03:04 PM Bennett Krause MD [facility] # [id number] BILL # [id number] Name Value Range Interpretation Code Description Data Theresa rce(s) Supporting Document(s) ID Date Data Source [id number] 05/23/2020 08:19:37 AM EDT [facility] Name Value Range Interpretation Code Description Data Theresa rce(s) Supporting Document(s) SODIUM 148 mmol/L (136-145) H [facility] POTASSIUM 3.3 mmol/L (3.6-5.2) L [facility] SLIGHT HEMOLYSIS CHLORIDE 113 mmol/L (100-108) H [facility] CO2 29 mmol/L (22-31) [facility] ANION GAP 6 mmol/L (7-16) L [facility] UREA NITROGEN 10 mg/dL (7-24) [facility] CREATININE 0.88 mg/dL (0.60-1.00) [facility] BUN/CREAT RATIO 11.4 RATIO (10.0-20.0) [facility] GLUCOSE 75 mg/dL (70-99) [facility] CALCIUM 7.9 mg/dL (8.4-10.2) L [facility] TOTAL PROTEIN 5.0 g/dL (6.4-8.2) L [facility] ALBUMIN 2.6 g/dL (3.2-4.5) L [facility] GLOBULIN 2.4 g/dL (2.7-4.3) L [facility] ALB/GLOB RATIO 1.1 RATIO [facility] ALKALINE PHOSPHATASE 66 U/L (45-117) [facility] BILIRUBIN,TOTAL 0.5 mg/dL (0.0-1.0) [facility] PLEASE NOTE:Total bilirubin results may be falselyelevated in patients taking Eltrombopag. AST (SGOT) 29 U/L (11-39) [facility] ALT (SGPT) 17 U/L (12-78) [facility] GFR >60 ml/min/1.73m2 (>59) [facility] GFR ( AMER) >60 ml/min/1.73m2 (>59) [facility] GFR [facility]TATION [facility] --NORMAL KIDNEY FUNCTION OR MILD DISEASE - GFR >OR= 60CHRONIC KIDNEY DISEASE - GFR 15 - 59RENAL FAILURE - GFR <15 Est. GFR calculation based on the MDRDstudy equation, which assumes a steadystate for creatinine. Est. GFR should notbe used for medication dosing. ID Date Data Source [id number] 05/23/2020 07:56:00 AM EDT [facility] Name Value Range Interpretation Code Description Data Theresa rce(s) Supporting Document(s) WBC 6.2 10*3/uL (4.1-11.0) [facility] [place] RBC 3.32 10*6/uL (4.00-5.40) L [facility] HGB 11.2 g/dL (12.0-16.0) L [facility] HCT 35.8 % (36.0-47.0) L [facility] MCV 108.0 fL (80.0-95.0) H [facility] MCH 33.9 pg (27.0-32.0) H [facility] MCHC 31.4 g/dL (32.0-36.0) L [facility] RDW 17.7 % (10.5-14.5) H [facility] PLT 203 10*3/uL (150-450) [facility] MPV 8.3 fL (7.1-10.7) [facility] ID Date Data Source [id number] 05/23/2020 02:10:00 AM EDT [facility] Name Value Range Interpretation Code Description Data Theresa rce(s) Supporting Document(s) SARS coronavirus 2 RNA [Presence] in Res piratory specimen by RIDGE with probe detection Lab [facility] This lab was reported by [facility]. ID Date Data Source [id number] 05/23/2020 06:07:48 AM EDT [facility] Name Value Range Interpretation Code Description Data Theresa rce(s) Supporting Document(s) SPECIMEN DESCRIPTION [facility] COVID19 RESULT (NDET) Lab [facility] THIS ASSAY AMPLIFIES AND DETECTSTHE TARG ET RNA USING REAL-TIME PCR.NEGATIVE 2019_NCOV RT-PCR RESULTS DONOT PRECLUDE 2019_NCOV INFECTION ANDSHOULD NOT BE USED THE SOLE BASISFOR PATIENT MANAGEMENT DECISIONS. COMMENT [facility] UNDER AN EMERGENCY USE AUTHORIZATION(EUA ) FOR THE DETECTION AND/OR DIAGNOSISOF THE VIRUS THAT CAUSES COVID-19.EMAILED TO [facility] AT 0606 ON [phone] ID Date Data Source [id number] 05/29/2020 08:35:00 AM EDT [facility] [id number] NAME: BRITNEY JUAREZDATE OF : 1950REPORT: ADMISSION NOTEPATIENT NUMBER: [id number] STATUS: IPMEDICAL RECORD NUMBER: [id number] OF ADMISSION: 05/22/2020ROOM: 01[facility] COMPLAINT: Vomiting and diarrhea intermittently for the last 1 yearand sent for evaluation for EGD.HISTORY OF PRESENT ILLNESS: Ms. Britney Juarez is a 69-year-old female withhistory of coronary artery disease, status post CABG; history of aorticaneurysm, status post repair; COPD; hypertension; [facility], [facility] and [facility] and CT showinggastric wall thickening. The patient stated that last night she startedhaving vomiting multiple times, nonbloody. She also had diarrhea andstated whenever she vomits she has a gush of fluid. The patient had thesesymptoms going on intermittently for the last 1 year and she was admittedx2. In the ED, the patient had CT abdomen and pelvis that was concerningfor thickening in the gastric and duodenal area and the patient referredfor further evaluation by GI.PAST MEDICAL HISTORY:1. COPD.2. CAD, st atus post CABG.3. Aortic aneurysm, status post repair.4. Hypertension.SOCIAL HISTORY: She denies smoking. Drinks alcohol occasionally.FAMILY HISTORY: Reviewed, noncontributory.REVIEW OF SYSTEMS: Denies any chest pain or shortness of breath. Allother systems were negative.PHYSICAL EXAMINATION: Vitals: Temperature 36.7, respiratory rate 18,heart rate 83, blood pressure 147/80. General: Sitting comfortably. CVS:S1, S2 regular. Chest: Clear to auscultation bilaterally. Abdomen:Soft, nontender. Bowels are audible. DIRECTOR FIELD SERVICES: Awake and alert.LABORATORY DATA: Labs from the [facility] showed the patient haswhite cell count of [address] showed thickening of the gastric antrum andproximal duodenum.ASSESSMENT AND PLAN: A 69-year-old female with history of CAD, status postCABG; COPD; abdominal aortic aneurysm, status post repair; hypertension,who presented for intractable vomiting and intermittent diarrhea. CTconcerning for gastric antrum and proximal duodenal thickening at [facility]. 1. Vomiting and diarrhea. The patient has these symptoms going on for the last [address] is showing thickening in the gastric antrum and proximal duodenum. We will keep the patient on IV PPI. GI consulted. Plan to do EGD.2. CAD, status post CABG. EKG done that did not show any acute ST or T-wave changes. We will continue home medication, metoprolol.3. Hyperlipidemia, on statin.4. COPD, stable.5. Code status. The patient wishes to be DNR/DNI.DICTATED BY: CORY Castanonictated: 05/22/2020 17:45DT: 05/22/2020 17:47Job #: [id number]: Maria Luisa Elizondo NpNOTE: [facility] computer generated reports are notconfirmed or authenticated unless they are signed by the providerElectronically Authenticated and Edited by:BETH POTTER MD On 05/29/2020 08:35 AM EDT Name Value Range Interpretation Code Description Data Theresa rce(s) Supporting Document(s) ID Date Data Source [id number] 05/24/2020 11:54:00 AM [place], [place] [address]PATIENT NAME: BRITNEY JUAREZDATE OF : 1950REPORT: OPERATIONPATIENT NUMBER: [id number] STATUS: IPMEDICAL RECORD NUMBER: [id number] OF ADMISSION: 05/22/2020DATE OF DISCHARGE: 05/22/2020ROOM: 00DATE OF PROCEDURE: 05/22/2020SURGEON: YUKO BroderickREOPERATIVE DIAGNOSES: Nausea and vomiting, abnormal CAT scan.POSTOPERATIVE DIAGNOSES: Irregular Z- line, Gastritis, sliding hiatal hernia, large duodenal ulcer causing gastric outlet obstruction.PROCEDURE: E sophagogastroduodenoscopy with biopsy.INDICATION: Nausea and vomiting, abnormal CAT scan.ANESTHESIA: Monitored anesthesia care.PROCEDURE IN DETAIL: The detailed informed consent was obtained from thepatient. Risks of infection, bleeding, and perforation, as well asalternatives were discussed with the patient at length. The patient wasplaced in the left lateral decubitus position. The bite block was placed.After appropriate level of sedation, the upper endoscope was carefullyadvanced through the mouth and advanced under direct visualization to theesophagus, stomach, and duodenal bulb. The endoscope was carefullywithdrawn with detailed evaluation. The retroflexion was done in thestomach. The scope was removed. The patient tolerated the procedure well.There were no complications. The patient was moved to recovery.FINDINGS: Esophagus showed an irregular Z-line located at 38cm from the incisor. Diaphragmatic pinch was at 42cm from the incisor with a sliding hiatal hernia. Stomach showed diffuse erythema consistent with gastritis. Biopsy was done. Duodenal bulb showed a circumferential ulceration with stable clot which I could not dislodge with aggressive washing and mucosal irregularity and I was not able to advance the scope into the second portion concerning for gastric outlet obstruction. IMPRESSION: Irregular Z-line, Gastritis, sliding hiatal hernia, large duodenal ulcer causing gastric outlet obstruction.PLAN: PPI drip, n.p.o., IV fluid with gentle hydration. Check stool forH. pylori, check pathology results. The patient will need repeat endoscopy. Please consider UGI with SBFT prior to advancement of diet. The patient should also consider getting a repeat CT scan with IV contrast study. We will follow.I would like to thank the medical team for allowing me to participate inthe care of this patient.DICTATED BY: CORY Broderickictated: 05/22/2020 12:57DT: 05/22/2020 13:00Job #: [id number]: [facility] computer generated reports are not confirmed orauthenticated unless they are signed by the providerElectronically Authenticated and Edited by:DIPESH PIERRE MD On 05/24/2020 11:54 AM EDT Name Value Range Interpretation Code Description Data Theresa rce(s) Supporting Document(s) ID Date Data Source [id number] 05/22/2020 12:01:[address] [facility] Name Value Range Interpretation Code Description Data Theresa rce(s) Supporting Document(s) MUSE EKG PDF encoded [facility] [id number] [file] [id number] ID Date Data Source [id number] 05/22/2020 10:53:00 AM EDT [facility] DATE OF EXAM: 05/22/2020Chest 1V Portabl e CLINICAL STATEMENT: PNEUMONIA, EVALUATE FOR TECHNIQUE: Portable AP upright view of the chest. COMPARISON: CT chest 04/28/2014. FINDINGS: There is no lobar consolidation bilaterally. Focal scarring seen just above the right CP angle.There is no pneumothorax bilaterally.The cardiac silhouette is mildly enlarged. Median sternotomy wires noted in place. Status post CABG surgery.Uncoiled ectatic aorta.The costophrenic angles appear sharp bilaterally.The visualized osseous structures appear unremarkable. IMPRESSION: No radiographic evidence of acute pulmonary disease. Focal scarring just above the right CP angle. X7End of diagnostic report for accession: [id number] Interpreted: Bishnu Jonse MDTranscribed: 05/22/2020 10:49 AMSigned: 05/22/2020 10:53 AM Bishnu Jones MD [facility] # [id number] BILL # [id number] Name Value Range Interpretation Code Description Data Theresa rce(s) Supporting Document(s) ID Date Data Source [id number] 05/22/2020 08:50:[address] [facility] Name Value Range Interpretation Code Description Data Theresa rce(s) Supporting Document(s) URINALYSIS [facility] URINALYSIS SOURCE R [facility] COLOR Yellow NORMAL: Yellow [facility] CLARITY Clear NORMAL: Clear [facility] Specific gravity of Urine by Test strip 1.015 1.001 - 1.030 [facility] pH 6.5 5 - 9 [facility] Glucose [Mass/volume] in Urine by Test strip Negative [facility]AL[facility] Bilirubin.total [Presence] in Urine by Test strip Negative NORMAL: Negative [facility] Ketones [Presence] in Urine by Test strip 50 NORMAL: Negative [facility] Protein [Mass/volume] in Urine by Test strip 30 NORMAL: [facility] Nitrite [Presence] in Urine by Test strip Negative NORMAL: Negative [facility] BLOOD 10 NORMAL: Negative [facility] Leukocyte esterase [Presence] in Urine by Test strip 25 BRITTANY L: Negative [facility] Urobilinogen [Mass/volume] in Urine by Test strip NOR less emil n 1.0 mg/dL [facility] MICROSCOPIC See Below [facility] ital WBC 3 - 5 NORMAL: NONE SEEN [facility] Erythrocytes [#/volume] in Urine by Test strip 5 - 7 NORMAL: NON E SEEN A [facility] EPITHELIAL MODERATE NORMAL: NONE SEEN A [facility] Bacteria [Presence] in Urine sediment by Light microscopy Tr tien NORMAL: NONE SEEN [facility] Casts [#/area] in Urine sediment by Microscopy low power field See Be low [facility] Hyaline casts [#/area] in Urine sediment by Microscopy low p ower field 0-1 NORMAL: None Seen A [facility] Coarse Granular Casts [#/area] in Urine sediment by Mi croscopy low power field 0-1 NORMAL: None Seen A [facility] Fine Granular Casts [#/area] in Urine sediment by Micr oscopy low power field 0-1 NORMAL: None Seen A [facility] Waxy casts [#/area] in Urine sediment by Microscopy low aquiles r field None Seen NORMAL: None Seen [facility] ID Date Data Source [id number] 05/24/2020 07:04:42 PM EDT [facility] [place] [facility] [place], [place] [address]Tel# SURGICAL PATHOLOGY REPORTPatient Name:LUIS JUAREZB:1950Received:05/23/2020Accession #:[id number](s) Received: A: Stomach antrum/body bxClinical Diagnosis and History: Nausea and vomiting, duodenal ulcer. DIAGNOSIS:GASTRIC BIOPSY, ANTRUM AND BODY BENIGN GASTRIC MUCOSA. NO HELICOBACTERIDENTIFIED. GROSS DESCRIPTION: Specimen received in formalin labeled "stomach antrum and body biopsy"are two soft loving irregular tissues measuring 0.3 x 0.2 cm and 0.5 x 0.2cm. The specimen is submitted in toto for microscopic examination. (1block) tu/ashereReported: 05/24/2020Electronically Signed Out By Dolly Watters M.D. [facility] [place], [place] [address]Technical component performed at [facility], Histopathology, [address] [place] [address], [facility].Report ed at [facility], [address] [place] [address], [facility].This report may include immunohistochemical or in- situ hybridizationresults. Testing was developed and the performance characteristicsdetermined by [facility], as required byCLIA '88. The FDA has determined that approval for specific use is notnecessary for clinical use. The quality of Hematoxylin and Eosin stainsand as applicable, for all immunohistochemical and/or special stains,including positive and negative controls, were reviewed and consideredappropriate.ICD codes: K29.70CPT4 codes: A: 56915I Name Value Range Interpretation Code Description Data Theresa rce(s) Supporting Document(s) ID Date Data Source [id number] 05/22/2020 01:41:[address] [facility] [address] [facility] Emergency Department [address] [place] [address] Phone #: ext- [phone] 05/22/2020 01:40 Patient: BRITNEY JUAREZ Sex: F : 1950 Age: 69yWEIGHT:64.0 kg (M) HEIGHT:62 inches (S) BMI:25.8ALLERGIES: Ambien, Fenofibrate, Lunesta, NSAIDs, TramadolCHIEF COMPLAINT: vomiting, diarrhea, abdominal cramps, nauseaDIAGNOSIS: Gastritis, Vomiting, Hypertensive disorder, HyperglycemiaLAB ORDERSOrder Description Priority Entered Acknowledged InitialedCBC w Diff STAT 02:05/22/2020 02:30 Kendrick Syed R.N. Physician;CMP STAT 02:05/22/2020 02:30 Kendrick Syed R.N. Physician;Sed. Rate STAT 02:12 05/22/2020 02:30 Kendrick Syed R.N. Physician;Urinalysis (Clean STAT 02:05/22/2020 07:52 [place],Catch) Kendrick Roman R.N. Physician;Lipase STAT 02:12 05/22/2020 02:30 Kendrick Syed R.N. Physician;Troponin-T STAT 02:12 05/22/2020 02:30 Kendrick Syed R.N. Physician; TSH STAT 02:12 05/22/2020 02:30 Kendrick Syed R.N. Physician;GI 4 Panel 02:16 05/22/2020 Kendrick Nickerson Physician;DIAGNOSTIC STUDY ORDERSOrder Description Priority Entered Acknowledged InitialedCT ABD PEL W/O STAT 04:36 05/22/2020 05:18 Kunal,Oral W/O IV Kendrick Devi R.N.Contrast Physician;(Oxygen?(No)) [address] [facility] Emergency Department [address] [place] [address] Phone #: ext- [phone] 05/22/2020 01:40 Patient: BRITNEY JUAREZ Sex: F : 1950 Age: 69y(IV?(Yes)) Reason for Study: Abdominal Pain, Diarrhea, VomitingMEDICATION/IV/DRIP/FLUID ORDERSOrder Description Priority Entered Acknowledged InitialedPhenergan 12.5 mg 02:12 05/22/2020 02:33 Kunal,IVP X1 dose: 12.5 Kendrick Devi R.N.mg (NOW x1, HIGH Physician;ALERTMEDICATION)LR IV : 200 mL/hr 02:12 05/22/2020 02:33 Kunal,(NOW x1) Kendrick Devi R.N. Physician;Phenergan 25 mg 05:56 05/22/2020 06:03 Kunal,in 50 mL NS, give Kendrick Devi R.N.wide open: 25 mg Physician;(NOW x1, HIGHALERTMEDICATION)Zofran IVP 8 mg 06:29 05/22/2020 Ack'd: 06:30 06:30 Mikaela(NOW) Jessie Hickman R.N. Physician; Jessie GranadoscloNIDine PO 0.1 06:29 05/22/2020 06:38 Kunal,mg Kendrick Devi R.N. Physician;Ativan IVP 0.5 mg 07:36 05/22/2020 07:53 Vanesa(HIGH ALERT Gordon Roman R.N.MEDICATION, Physician;NOW)GENERAL ORDERSOrder Description Priority Entered Acknowledged InitialedEKG 02:12 05/22/2020 Ack'd: 02:26 02:26 Kendrick Al Jennifer R.N. Ph ysician; Jessie GranadosTransfer: ([place]) 07:03 05/22/2020 07:19 Kendrick Lainez R.N. Physician;[Electronically signed by Kendrick Nickerson (07:08 05/22/2020)][Electronically signed by Jessie Alexis R.N. (07:55 05/22/2020)] [address] [facility] Emergency Department [address] [place] [address] Phone #: ext- [phone] 05/22/2020 01:40 Patient: BRITNEY JUAREZ Sex: F : 1950 Age: 69y[Electronically locked by Jessie Alexis R.N. (07:55 05/22/2020)] Name Value Range Interpretation Code Description Data Theresa rce(s) Supporting Document(s) ID Date Data Source [id number] 05/22/2020 01:41:[address] [facility] [address] [facility] Emergency Department [address] [place] [address] Phone #: ext- [phone] 05/22/2020 01:40 Patient: BRITNEY JUAREZ Sex: F : 1950 Age: 69yWeight: 64.0 kgHeight/Length: 62 in.BMI: 25.8ALLERGIES: Ambien, Fenofibrate, Lunesta, NSAIDs, TramadolThe patient's Home Medications are listed below:THE FOLLOWING MEDICATIONS NEED TO BE RECONCILED: Atorvastatin Calcium Oral (10 mg) 1 tablet, daily, at bedtime Metoprolol Tartrate Oral (100 mg) 1 tablet, daily Tension Headache Oral (500-65 mg) 2 tablets, prn traZODone HCl Oral 50 mg, daily, at bedtime Zofran ODT OralThe source(s) of the original Home Medication information:patientThe following Medications were given to the patient in the Emergency Department:Phenergan [IV Drip] IVPB bolus 0, then 12.5 mg 200 mL/hr, administered: 05/22/2020 2:33:00 AMLR [IV] IV Fluids bolus 0, then 200 mL/hr, administered: 05/22/2020 2:33:00 AMPhenergan [IVPB] IVPB bolus 0, then 25 mg 200 mL/hr, administered: 05/22/2020 5:50:00 AMZofran [IVP] IVP 8 mg, administered: 05/22/2020 6:25:00 AMClonidine [PO] PO 0.1 mg, administered: 05/22/2020 6:38:00 AMAtivan [IVP] IVP 0.5 mg diluted in NS 10 mL, administered: 05/22/2020 7:40:00 AMThe following Medications were prescribed to the patient:None. [address] [facility] Emergency Department [address] [place] [address] Phone #: ext- [phone] 05/22/2020 01:40 Patient: BRITNEY JUAREZ Sex: F : 1950 Age: 69y Name Value Range Interpretation Code Description Data Theresa rce(s) Supporting Document(s) ID Date Data Source [id number] 05/22/2020 01:41:[address] [facility] [address] [facility] Emergency Department [address] [place] [address] Phone #: ext- [phone] 05/22/2020 01:40 Patient: BRITNEY JUAREZ Sex: F : 1950 Age: 69yWeight: 64.0 kgHeight/Length: 62 inBMI: 25.8ALLERGIES: Ambien, Fenofibrate, Lunesta, NSAIDs, Tramadol Date/Time Medication Administered Medication OrderedStart PHENERGAN [IV DRIP] Phenergan 12.5 mg IVP X1 dose:02:33 05/22/2020 (PROMETHAZINE HCL) 12.5 mg (NOW x1, HIGH ALERTMarito Syed R.N. Dose: 12.5 mg IVPB MEDICATION)---- Rate: 200 mL/hr over 15 minute(s)Stop Dispensed: 50 mL bag02:44 05/22/2020 Site: #1 left forearmMarito Syed R.N.Start LR [IV] LR IV : 200 mL/hr (NOW x1)02:33 05/22/2020 Dose: IV FluidsMarito Syed R.N. Rate: 200 mL/hr over 5 hour(s)---- Dispensed: 1000 mL bagContinued Upon Transfer Site: #1 left jllsenz65:53 05/22/2020Jessie Alexis R.N.Start PHENERGAN [IVPB] Phenergan 25 mg in 50 mL NS,05:50 05/22/2020 Dose: 25 mg IVPB give wide open: 25 mg (NOW Kunal hernandez Robert, R.N. Rate: 200 mL/hr over 15 minute(s) HIGH ALERT MEDICATION)---- Dispensed: 50 mL bagStop Site: #1 left hudxnpg26:27 05/22/2020Marito Syed R.N.Given ZOFRAN [IVP] (ONDANSETRON HCL) Zofran IVP 8 mg (NOW)06:25 05/22/2020 Dose: 8 mg IVPMcCormJessie hayden R.N. Site: #1 left forearmGiven CLONIDINE [PO] cloNIDine PO 0.1 mg06:38 05/22/2020 Dose: 0.1 mg Tablets Marito Barnes R.N.Given ATIVAN [IVP] (LORAZEPAM) Ativan IVP 0.5 mg (HIGH ALERT07:40 05/22/2020 Dose: 0.5 mg IVP MEDICATION, NOW)Jessie Alexis R.N. In: NS 10 mL Site: #1 left forearm Name Value Range Interpretation Code Description Data Theresa rce(s) Supporting Document(s) ID Date Data Source [id number] 05/22/2020 01:41:[address] [facility] [address] [facility] Emergency Department [address] [place] [address] Phone #: ext- [phone] 05/22/2020 01:40 Patient: BRITNEY JUAREZ Sex: F : 1950 Age: 69y Intractable vomiting with nausea. Acute gastritis. No alcoholic gastritis or hemorrhagic gastritis. Hypertension. Screening today revealed the patient's blood pressure to be in the hypertensive stage 2 range. Moderate hyperglycemia. ADDITIONAL INFORMATIONEstablished High Blood Pressure High blood pressure (hypertension) is a chronic disease.Often, healthcare providers don't know what causes it. But it can be caused by certain healthconditions and medicines.If you have high blood pressure, you may not have any symptoms. If you do have symptoms, theymay include headache, dizziness, changes in your vision, chest pain, and shortness of breath. Buteven without symptoms, high blood pressure that's not treated raises your risk for heart attack, heartfailure, and stroke. High blood pressure is a serious health risk and shouldn't be ignored.Blood pressure measurements are given as 2 numbers. Systolic blood pressure is the upper number.This is the pressure when the heart contracts. Diastolic blood pressure is the lower number. This is [address] [facility] Emergency Department [address] [place] [address] Phone #: ext- [phone] 05/22/2020 01:40 Patient: BRITNEY JUAREZ Sex: F : 1950 Age: 69ythe pressure when the heart relaxes between beats. You will see your blood pressure readingswritten together. For example, a person with a systolic pressure of 118 and a diastolic pressure of 78will have 118/78 written in the medical record.Blood pressure is categorized as normal, elevated, or stage 1 or stage 2 high blood pressure: Normal blood pressure is systolic of less than 120 and diastolic of less than 80 (120/80) Elevated blood pressure is systolic of 120 to 129 and diastolic less than 80 Stage 1 high blood pressure is systolic is 130 to 139 or diastolic between 80 to 89 Stage 2 high blood pressure is when systolic is 140 or higher or the diastolic is 90 or higherHome careIf you have high blood pressure, follow these home care guidelines to help lower your blood pressure.If you are taking medicines for high blood pressure, these methods may reduce or end your need formedicines in the future. Start a weight-loss program if you are overweight. Cut back on how much salt you get in your diet. Here's how to do this: o Don't eat foods that have a lot of salt. These include olives, pickles, smoked meats, and salted potato chips. o Don't add salt to your food at the table. o Use only small amounts of salt when cooking. Start an exercise program. Talk with your healthcare provider about the type of exercise program that would be best for you. It doesn't have to be hard. Even brisk walking for 20 minutes 3 times a week is a good form of exercise. Don't take medicines that stimulate the heart. This includes many vjll-ztm-wqwzfac cold and sinus decongestant pills and sprays, as well as diet pills. Check the warnings about high blood pressure on the label. Before buying any twrx-pjf-bwdstna medicines or supplements, always ask the pharmacist about the product's potential interaction with your high blood pressure and your high blood pressure medicines. Stimulants such as amphetamine or cocaine could be deadly for someone with high blood pressure. Never take these. Limit how much caffeine you get in your diet. Switch to caffeine-free products. Stop smoking. If you are a long-time smoker, this can be hard. Talk to your healthcare provider about medicines and nicotine replacement options to help you. Also, enroll in a 3 General [facility] Emergency Department [address] [place] [address] Phone #: ext- [phone] 05/22/2020 01:40 Patient: BRITNEY JUAREZ [facility]#: [id number] Sex: F : 1950 Age: 69y stop-smoking program to make it more likely that you will quit for good. Learn how to handle stress. This is an important part of any program to lower blood pressure. Learn about relaxation methods like meditation, yoga, or biofeedback. If your provider prescribed medicines, take them exactly as directed. Missing doses may cause your blood pressure get out of control. If you miss a dose or doses, check with your healthcare provider or pharmacist about what to do. Consider buying an automatic blood pressure machine to check your blood pressure at home. Ask your provider for a recommendation. You can get one of these at most pharmacies.The [place] [employer] recommends the following guidelines for home blood pressuremonitoring: Don't smoke or drink coffee for 30 minutes before taking your blood pressure. Go to the bathroom before the test. Relax for 5 minutes before taking the measurement. Sit with your back supported (don't sit on a couch or soft chair); keep your feet on the floor uncrossed. Place your arm on a solid flat surface (like a table) with the upper part of the arm at heart level. Place the middle of the cuff directly above the bend of the elbow. Check the monitor's instruction manual for an illustration. Take multiple readings. When you measure, take 2 to 3 readings one minute apart and record all of the results. Take your blood pressure at the same time every day, or as your healthcare provider recommends. Record the date, time, and blood pressure reading. Take the record with you to your next medical appointment. If your blood pressure monitor has a built-in memory, simply take the monitor with you to your next appointment. Call your provider if you have several high readings. Don't be frightened by a single high blood pressure reading, but if you get several high readings, check in with your healthcare provider. Note: When blood pressure reaches a systolic (top number) of 180 or higher OR diastolic (bottom number) of 110 or higher, seek emergency medical treatment. [address] [facility] Emergency Department [address] [place] [address] Phone #: ext- [phone] 05/22/2020 01:40 [id number] Sex[facility] F : 1950 Age: 69yFollow-up careYou will need to see your healthcare provider regularly. This is to check your blood pressure and tomake changes to your medicines. Make a follow-up appointment as directed. Bring the record of yourhome blood pressure readings to the appointment.When to seek medical adviceCall your healthcare provider right away if any of these occur: Blood pressure reaches a systolic (upper number) of 180 or higher OR a diastolic (bottom number) of 110 or higher Chest pain or shortness of breath Severe headache Throbbing or rushing sound in the ears Nosebleed Sudden severe pain in your belly (abdomen) Extreme drowsiness, confusion, or fainting Dizziness or spinning sensation (vertigo) Weakness of an arm or leg or one side of the face You have problems speaking or seeing [id number] [place] [address]. All rights reserved. This information is not intended as asubstitute for professional medical care. Always follow your healthcare professional's instructions.New-Onset Hyperglycemia (Diabetes Suspected)Your blood sugar is high today. This is called hyperglycemia. It means there is too much glucose(sugar) in your blood. This can have several possible causes. These include taking certain medicines,being under stress, or having an infection. The most common cause is diabetes. Diabetes developswhen your body doesn't make enough insulin, which is a hormone that helps control blood sugar.Tests can be done to help find the cause of hyperglycemia. To bring your blood sugar down, you maybe given insulin. [address] [facility] Emergency Department [address] [place] [address] Phone #: ext- [phone] 05/22/2020 01:40 Patient: BRITNEY JUAREZ Sex: F : 1950 Age: 69y Hyperglycemia occurs when glucosecan't enter cells, so it builds up in the bloodstream instead.When your body is working normally, the food you eat is digested and turned into sugar. This sugargoes into your bloodstream. Insulin helps sugar move from the bloodstream into the body's cells.There it is used as fuel. When you have diabetes, the sugar can't enter the cells. It stays in the blood,causing high blood sugar. If not controlled, diabetes can cause long-term health problems. Even ifyou don't have symptoms, it can harm your blood vessels, heart, and other organs. Over time,uncontrolled hyperglycemia can make a heart attack or stroke more likely.Follow-up careFollow up with your healthcare provider as advised. To determine the underlying cause of thehyperglycemia, you likely need more tests. You will be given more information about these tests. Ifneeded, your healthcare provider will refer you to a team that specializes in diabetes care. Thediabetes care team can help you learn about and make the changes needed to manage yourhyperglycemia. Talk with your healthcare provider about starting an exercise program and meetingwith a dietitian. These actions can help control high blood sugar.When to seek medical adviceCall your healthcare provider right away if any of these occur: Excessive thirst or hunger Frequent need to urinate [address] [facility] Emergency Department [address] [place] [address] Phone #: ext- [phone] 05/22/2020 01:40 Patient: BRITNEY JUAREZ Sex: F : 1950 Age: 69y Losing weight without trying Feeling tired Nausea or vomiting Itchy, dry skin Dizziness Confusion Abdominal pain Fruity-smelling breath Deep or rapid breathing [phone] [employer]. [address] [place] [address]. All rights reserved. This information is not intended as asubstitute for professional medical care. Always follow your healthcare professional's instructions. You have been given the following additional information: Hypertension, Established New-Onset Hyperglycemia (Diabetes Suspected)(Electronically signed by Kendrick Nickerson, Physician 05/22/2020 07:08) Name Value Range Interpretation Code Description Data Theresa rce(s) Supporting Document(s) ID Date Data Source [id number] 05/22/2020 01:41:[address] [facility] 1 Clinical Report - Nurses [facility] Emergency Department [address] [place] [address] Phone #: ext- [phone] 05/22/2020 01:40 Patient: BRITNEY JUAREZ Sex: F : 1950 Age: 69yTRIAGEArrived by EMS.Triage time: 01:47 05/22/2020. Acuity: LEVEL 3.Chief Complaint: ABDOMINAL PAIN, NAUSEA, VOMITING and DIARRHEA.Alert. No acute distress.This is a recurrent problem. Started while at rest (one month). She has had nausea, vomiting, diarrheaand abdominal pain. 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 Sepsis Screen negative. No suspected or confirmed signs ofinfection present. --01:59 05/22/20 Marito Syed R.N.01:47 05/22/20. BP: 194/97. MAP: 129. HR: 105. RR: 19. O2 saturation: 98%. Temp: 98.1 F (oral). Painlevel now: 01/14. --01:59 05/22/20 Marito Syed R.N.Weight: 64 kg measured. Height/Length: 62 inches Per Patient. BMI: 25.8. --01:57 05/22/20 Marito Syed R.N.MedicationsAtorvastatin Calcium Oral (Tablet 10 mg) 1 tablet, daily at bedtime. Metoprolol Tartrate Oral (Tablet 100 mg) 1 tablet, daily. Tension Headache Oral (Tablet 500-65 mg) 2 tablets, as needed. traZODone HCl Oral 50 mg, daily at bedtime. Zofran ODT Oral. --01:48 05/22/20 Marito Syed R.N.AllergiesAmbien. (HALLUCINATIONS)Fenofibrate. (MAKES SKIN PEEL)Lunesta. (HALLUCINATIONS)NSAIDs.(itching)Tramadol. (HALLUCINATIONS) --01:48 05/22/20 Marito Syed R.N.PROBLEMS:Coronary Artery Disease.Dehydration.Gastritis.Diver ticulitis. 2 Clinical Report - Nurses [facility] Emergency Department [address] [place] [address] Phone #: ext- [phone] 05/22/2020 01:40 Patient: BRITNEY JUAREZ Sex: F : 1950 Age: 69yDiarrhea.Aortic Aneurysm.Abdominal Pain.Arthritis.COPD - Chronic Obstructive Pulmonary Disease.Common Iliac Aneurysms, B/L.Gastroenteritis.Nausea.Hypertension.Peptic Ulcer Disease.Thrombocytopenia.Heart Disease.Gastroesophageal Reflux Disease.Hypercholesterolemia.Hyperlipidemia.Hyperglycemia. --01:49 05/22/20 Marito Syed R.N.Myofascial Strain: Resolved. --01:49 05/22/20 Marito Syed R.N.Medication/allergy information source: the patient. --01:59 05/22/20 Marito Syed R.N.ADDITIONAL SURGERIES:Aortic anuerysm stent placed.Bilateral Tubal Ligation.Cardiac Bypass.Cholecystectomy.L wrist fx repair.Right wrist fx repair.Sigmoid resection.Tonsillectomy Adenoidectomy. --01:50 05/22/20 Marito Syed R.N.HistoryPAST MEDICAL HX: Immunizations: up-to-date.SOCIAL HX: Former smoker, end date 6 days. Alcohol use; consumes wine occasionally. She wasoffered HIV testing but declined. Patient education was provided. She was offered hepatitis C testing butdeclined. Patient education was provided. She has not traveled outside the [place]Infectious disease exposure: The patient was not exposed to chicken pox, measles, mumps, meningitis,staph, strep, mono, C-diff, MRSA, VRE, CRE, influenza, Austen flu, H1N1 flu, Hepatitis A, B and C,Coronavirus, MERS, SARS, tuberculosis, Ebola, HIV, Typhoid or Zika.SELF HARM ASSESSMENT: Self harm assessment was performed. The patient answered "no" to thequestion(s) "Have you recently felt down, depressed, or hopeless?", "Do you have thoughts of harming orkilling yourself?", "Do you have a plan for harming or killing yourself?", "Have you recently had thoughtsabout harming or killing others?", "Do you have any dangerous items in your possession?", "Have younoticed less interest or pleasure in doing things?", "Are you here because you tried to hurt yourself?" and 3 Clinical Report - Nurses [facility] Emergency Department [address] [place] [address] Phone #: ext- [phone] 05/22/2020 01:40 Patient: BRITNEY JUAREZ Sex: F : 1950 Age: 69y "Have you ever tried to hurt yourself before today?". ABUSE ASSESSMENT: Abuse assessment. Abuse denied. No suspicion of abuse. NUTRITIONAL RISK ASSESSMENT: The nutritional risk assessment revealed no deficiencies. FUNCTIONAL ASSESSMENT: Functional assessment: no impairments noted. LEARNING NEEDS ASSESSMENT: The learning needs assessment revealed no barriers. FALL RISK ASSESSMENT: Fall risk assessment completed. No risk factors identified. SKIN INTEGRITY ASSESSMENT: Skin integrity risk assessment completed. No skin integrity risk identified. --01:59 05/22/20 Marito Syed R.N. FAMILY HX: Negative. --02:06 05/22/20 Kendrick Nickerson, Physician. Assessment The patient states feels the same. --01:59 05/22/20 Marito Syed R.N. Interventions Identification and allergy band on patient. Advanced care plan. Patient has a px-elm-rilubhzxtlz (DNR) (HCP: Maria Luisa Shen). --01:59 05/22/20 Marito Syed R.N.PHYSICAL ASSESSMENTGENERAL / NEURO / PSYCH: Alert. Oriented X 4. Appears in no acute distress.HEENT: Mucous membranes are pink.RESPIRATORY: Respirations not labored. Breath sounds within normal limits.CVS: Normal sinus rhythm noted. Capillary refill less than 2 seconds.GI / : Abdomen soft. Abdominal tenderness diffusely (pt thinks maybe from stress of vomitting).Bowel sounds within normal limits. Normal genitalia. ( emesis, is color of weak coffee, w/o grounds).SKIN: Skin is warm and dry. --02:52 05/22/20 Marito Syed R.N.NURSING PROGRESS NOTESEKG time: (02:22 05/22/2020). EKG was performed by a nurse and shown to the ED physician. --02: Jessie Al R.N. 02:31 05/22/2020 Site #1 started via IV in the left forearm with an 20g angiocath, with aseptic te chnique and good blood return; one attempt. Blood drawn: rainbow set. Saline lock flushed with 10 mL saline. --02:31 05/22/20 Marito Syed R.N. 02:33 05/22/2020 Started 12.5 mg of Phenergan (Promethazine HCl) IVPB in bag #1 50 mL; at 200 mL/hr over 15 minute(s) via site #1. via IV pump. Allergies verified and confirmed 5 rights. IV patency established. IV site checked: no pain, redness, or swelling. IV flushed thoroughly pre- and post-medication 4 Clinical Report - Nurses [facility] Emergency Department [address] [place] [address] Phone #: ext- [phone] 05/22/2020 01:40 Patient: BRITNEY JUAREZ Sex: F : 1950 Age: 69yadministration. Information reviewed with patient including reason for taking this medication, signs ofallergic reaction, precautions and sedative warnings. Verbalizes understanding. --02:33 05/22/20 Marito Syed R.N.02:33 05/22/2020 Started bag #1 1000 mL IV Fluids LR; at 200 mL/hr over 5 hour(s) via site #1 via IVpump. Allergies verified and confirmed 5 rights. IV patency established. IV site checked: no pain, redness,or swelling. IV flushed thoroughly pre- and post- medication administration. Information reviewed withpatient including reason for taking this medication, signs of allergic reaction and precautions. Verbalizesunderstanding. --02:33 05/22/20 Marito Syed R.N.02:44 05/22/2020 Phenergan IVPB via IV site #1 Discontinued: bag #1 completed. Total amount infused:50 mL. IV patency established. IV site checked: no pain, redness, or swelling. IV flushed thoroughly.--02:44 05/22/20 Marito Syed R.N.Reassessment acuity: LEVEL 3. The patient is calm and resting quietly and has had no adverse reaction.Overall patient status is improved- she states feels better.GI / : Abdomen soft. Abdominal tenderness diffusely. Bowel sounds within normal limits.SKIN: Skin is warm and dry. Skin color within normal limits. Two patient identifiers checked. Call lightplaced in reach. Side rails up x 2. Bed placed in lowest position. Brakes of bed on. --02:57 05/22/20Marito goodrich R.N.02:52 05/22/20. BP: 170/89. MAP: 116. HR: 103. RR: 18. O2 saturation: 96% on nasal cannula at 1liters/minute. Temp: 98.2 F. Pain level now: 01/14. --02:57 05/22/20 Marito Syed R.N.Reassessment acuity: LEVEL 3. The patient reports no complaints, she is calm and resting quietly andshe has had no adverse reaction. Overall patient status is improved- she states feels better.GI / : Abdomen soft and nontender. Bowel sounds within normal limits.SKIN: Skin is warm and dry. Skin color within normal limits. Patient transported to [place] by stretcher. Twopatient identifiers checked. Call light placed in reach. Side rails up x 2. Bed placed in lowest position.Brakes of bed on. --04:50 05/22/20 Marito Syed R.N.04:49 05/22/20. BP: 179/98. MAP: 125. HR: 109. RR: 18. O2 saturation: 95% on nasal cannula at 1liters/minute. Temp: 98.2 F. Pain level now: 12/14. --04:50 05/22/20 Marito Syed R.N.05:50 05/22/2020 Started 25 mg of Phenergan IVPB in bag #1 50 mL; at 200 mL/hr over 15 minute(s) viasite #1. via IV pump. Allergies verified and confirmed 5 rights. IV patency established. IV site checked: nopain, redness, or swelling. IV flushed thoroughly pre- and post-medication administration. Informationreviewed with patient including reason for taking this medication, signs of allergic reaction and precautions.Verbalizes understanding. --06:03 05/22/20 Marito Syed R.N.Reassessment acuity: LEVEL 3. The patient reports no complaints, she is calm and resting quietly andshe has had no adverse reaction. Overall patient status is improved- she states feels better.GI / : Abdomen soft and nontender. Bowel sounds within normal limits.SKIN: Skin is warm and dry. Skin color within normal limits. Two patient identifiers checked. Call light 5 Clinical Report - Nurses [facility] Emergency Department [address] [place] [address] Phone #: ext- [phone] 05/22/2020 01:40 Patient: BRITNEY JUAREZ Sex: F : 1950 Age: 69yplaced in reach. Side rails up x 2. Bed placed in lowest position. Brakes of bed on. --06:15 05/22/20Marito goodrich R.N.06:14 05/22/20. BP: 202/98. MAP: 132. HR: 107. RR: 20. O2 saturation: 97% on nasal cannula at 1liters/minute. Pain level now: 12/14. --06:15 05/22/20 Marito Syed R.N.06:25 05/22/2020 Zofran (Ondansetron HCl) IVP 8 mg given over 2 minute(s) via site #1. Allergies verifiedand confirmed 5 rights. IV patency established. IV site checked: no pain, redness, or swelling. IV flushedthoroughly pre- and post-medication administration. IVP given by RN. Information reviewed with patientincluding reason for taking this medication, signs of allergic reaction and precautions. Verbalizesunderstanding. --06:30 05/22/20 Jessie Al R.N.06:27 05/22/2020 Phenergan IVPB via IV site #1 Discontinued: bag #1 completed. Total amount infused:50 mL. IV patency established. IV site checked: no pain, redness, or swelling. IV flushed thoroughly.--06:27 05/22/20 Marito Syed R.N.06:38 05/22/2020 Clonidine PO Tablets 0.1 mg given. Allergies verified and confirmed 5 rights. Informationreviewed with patient including reason for taking this medication, signs of allergic reaction and precautions.Verbalizes understanding. --06:38 05/22/20 Marito Syed R.N.Reassessment acuity: LEVEL 3. The patient is calm and resting quietly and has had no adverse reaction.GI / : Abdomen soft. Abdominal tenderness diffusely. Bowel sounds within normal limits.SKIN: Skin is warm and dry. Skin color within normal limits. Two patient identifiers checked. Call lightplaced in reach. Side rails up x 2. Bed placed in lowest position. Brakes of bed on. --06:52 05/22/20Marito goodrich R.N.06:50 05/22/20. BP: 196/88. MAP: 124. HR: 119. RR: 18. O2 saturation: 97% on nasal cannula at 2liters/minute. Temp: 98.2 F. Pain level now: 12/14. --06:52 05/22/20 Marito Syed R.N.07:40 05/22/2020 Ativan (LORazepam) IVP 0.5 mg given diluted in NS 10mL over 4 minute(s) via site #1.Allergies verified and confirmed 5 rights. IV patency established. IV site checked: no pain, redness, orswelling. IV flushed thoroughly pre- and post-medication administration. IVP given by RN. Informationreviewed with patient including reason for taking this medication, signs of allergic reaction, precautions andsedative warning. Verbalizes understanding. --07:53 05/22/20 Jessie Alexis R.N.late entry - 07:43 05/22/20. Patient ID band checked for patient name and birthdate: patient confirmed.Instructions provided to collect clean catch urine and patient verbalized understanding. Clean catch urinecollected; sample sent to lab for urinalysis. Specimen labeled in the presence of the patient. --07:5305/22/20 Jessie Alexis R.N.07:52 05/22/2020 IV Fluids LR via IV site #1 Bag Change: bag #1 completed. Total amount infused: 1000.STARTED bag #2 (1000 mL) at 200 mL/hr via IV pump. Confirmed 5 rights. IV patency established. IV sitechecked: no pain, redness, or swelling. IV flushed thoroughly. --07:52 05/22/20 Jessie Alexis R.N. 6 Clinical Report - Nurses [facility] Emergency Department [address] [place] [address] Phone #: ext- [phone] 05/22/2020 01:40 Patient: BRITNEY JUAREZ Sex: F : 1950 Age: 69y 07:53 05/22/2020 IV Fluids LR via IV site #1 Continued: upon transfer at the rate of 200 mL/hr. 980 mL remaining bag #2. IV patency established. IV site checked: no pain, redness, or swelling. IV flushed thoroughly. --07:53 05/22/20 Jessie Alexis R.N.DISPOSITION / DISCHARGE 07:22 05/22/20. BP: 192/89. MAP: 1 23. HR: 107. RR: 20. O2 saturation: 94% on nasal cannula at 1 liters/minute. Temp: 98.2 F. Pain level now: 11/16. --07:25 05/22/20 Marito Syed R.N. Condition at departure: unchanged. No learning barriers present. The patient was discharged by the physician. Transferred to [facility]. Provided to EMS (ER). Transported via ambulance by vacuum cleaner mechanic and EMS with monitor, IV and O2. Report was given to a nurse via a phone call. Report included patient's care, condition, vital signs, labs, medications and IV's. All questions were answered. Report was acknowledged and care was transferred. (Aditi Hyde RN). Patient has no belongings. --07:25 05/22/20 Marito Syed R.N. 07:50 05/22/2020 Site #[address] upon transfer; patent, no pain and no signs of infection or infiltration. Good blood return present. Flushed with 10 mL saline; flushes easily. --07:54 05/22/20 Jessie Alexis R.N. Departure time: late entry - 07:50 05/22/2020. --07:54 05/22/20 Jessie Alexis R.N. 07:50 05/22/20. BP: 186/91. MAP: 122. HR: 109. O2 saturation: 95%. --07:55 05/22/20 Jessie Alexis R.N.Locked/Released at 05/22/2020 07:55 by Jessie Alexis R.N. Name Value Range Interpretation Code Description Data Theresa rce(s) Supporting Document(s) ID Date Data Source [id number] 0001 05/22/2020 01:41:[address] [facility] 1 Clinical Report - Physicians/Mid Levels [facility] Emergency Department [address] [place] [address] Phone #: ext- [phone] 05/22/2020 01:40 Patient: BRITNEY JUAREZ Sex: F : 1950 Age: 69y Time Seen: 01:48 05/22/2020. Arrived- By ambulance. Historian- patient. Disposition decision: 07:02 05/22/2020.HISTORY OF PRESENT ILLNESS Chief Complaint: VOMITING and DIARRHEA. ABDOMINAL CRAMPS and NAUSEA. Is still present. No recent travel. She has had nausea, moderate vomiting. The vomiting has occurred numerous times and mild, crampy abdominal pain. The pain is described as generalized and associated with nausea, vomiting and diarrhea. She has had moderate diarrhea. This has occurred several times. It has been watery. No black stools, bloody stools, constipation, flank pain or history of possible bad food exposure. No known contact with a sick individual or change in routine. Has recently been on antibiotics but not recently been camping. The illness is described as severe. Similar symptoms previously. Patient has had similar symptoms frequently. Recent medical care: The patient was seen recently and hospitalized.REVIEW OF SYSTEMSNo fever, muscle aches, difficulty with urination, dark urine or headache. No dizziness, sore throat, cough,difficulty breathing or excessive urination. No skin rash, jaundice, back pain, fainting episodes or blurredvision. All other systems reviewed and are negative.PAST HISTORYSee nurses notes. Problems: Primary (Essential) Thrombocytosis. Coronary Artery Disease. Dehydration. Gastritis. Diverticulitis. Diarrhea. Aortic Aneurysm. Abdominal Pain. Arthritis. COPD - Chronic Obstructive Pulmonary Disease. Common Iliac Aneurysms, B/L. Gastroenteritis. Nausea. Hypertension. 2 Clinical Report - Physicians/Mid Levels [facility] Emergency Department [address] [place] [address] Phone #: ext- [phone] 05/22/2020 01:40 Patient: BRITNEY JUAREZ Sex: F : 1950 Age: 69y Peptic Ulcer Disease. Thrombocytopenia. Heart Disease. Gastroesophageal Reflux Disease. Hypercholesterolemia. Hyperlipidemia. Hyperglycemia. Additional Surgeries: Aortic anuerysm stent placed. Bilateral Tubal Ligation. Cardiac Bypass. Cholecystectomy. L wrist fx repair. Right wrist fx repair. Sigmoid resection. Tonsillectomy Adenoidectomy. Medications: Atorvastatin Calcium Oral (Tablet 10 mg) 1 tablet, daily at bedtime. Metoprolol Tartrate Oral (Tablet 100 mg) 1 tablet, daily. Tension Headache Oral (Tablet 500-65 mg) 2 tablets, as needed. traZODone HCl Oral 50 mg, daily at bedtime. Zofran ODT Oral. Allergies: Ambien. (HALLUCINATIONS) Fenofibrate. (MAKES SKIN PEEL) Lunesta. (HALLUCINATIONS) NSAIDs.(itching) Tramadol. (HALLUCINATIONS).SOCIAL HISTORYFormer smoker. No alcohol use or drug use. No recent travel.FAMILY HISTORYNegative.ADDITIONAL NOTESThe nursing notes have been reviewed with agreement regarding the chief complaint, HPI, ROS, PMH andpatient medications and allergies.PHYSICAL EXAMVital Signs: 05/22/2020 01:47 BP: 194/97. MAP: 129. HR: 105. RR: 19. O2 saturation: 98%. Temp: 98.1F. Pain level now: 4/10. Have been reviewed as abnormal. Hypertensive. Tachycardic. Respiratory 3 Clinical Report - Physicians/Mid Levels [facility] Emergency Department [address] [place] [address] Phone #: ext- [phone] 05/22/2020 01:40 Patient: BRITNEY JUAREZ Sex: F : 1950 Age: 69y rate normal. Temperature normal. Oxygen saturation normal. Appearance: Alert. Oriented X3. Patient in mild distress. Eyes: Pupils equal, round and reactive to light. Eyes normal inspection. ENT: Ears normal. Nose normal. Dry mucous membranes present. Neck: Normal inspection. Neck supple. CVS: Tachycardia. Heart sounds normal. Pulses normal. Respiratory: No respiratory distress. Painless inspiration. Breath sounds normal. Abdomen: Soft. Mild tenderness diffusely. Bowel sounds normal. No organomegaly. No mass. Femoral pulses equal. No rebound tenderness or guarding. Back: Normal inspection. Skin: Skin warm and dry. Pallor. No rash. Normal skin turgor. Extremities: Extremities exhibit normal ROM. Neuro: Oriented X 3. No motor deficit. No sensory deficit.LABS, X-RAYS, AND EKGEKG: EKG time: 02:22 05/22/2020. Tachycardia (112). Sinus tachycardia. Ectopic beats. Prematureatrial contractions. Normal P waves. Left atrial enlargement. Normal YVONNE. Normal QRS complex.Normal axis. Non- specific ST segment / T wave abnormalities. The study has been interpretedcontemporaneously by me. I agree with and confirm the computer reading of the EKG. Interpretationtime: 02:28 05/22/2020.Laboratory Tests: Laboratory tests have been ordered, with results reviewed and considered in the medical decision making process. CT ABD PEL W/O Oral W/O IV Contrast: (MINDY: 05/22/2020 04:36) ( MsgRcvd 05/22/2020 06:20) Final results Exam CT ABD //T// PELV W/O [place]AL [place] [address] ---------NAME--------- NUMBER SEX AGE ADMIT DISC. XRAY# F/C TYPE BISMARK Thomson [id number] F 69 05/22/20 [id number] MB3 E/R DATE OF : 1950 M/R# [id number] #: [id number] TR-02 LOCATION: EMERGENCY DEPT TRANSCRIBED: 05/22/20 6:[address] ABD //T// PELV W/O ORAL W/[place] [id number] COMPLETED:05/22/20 5:06 KEVIN [id number] Reason(s): Abdominal Pain Diarrhea Vomiting PHYSICIAN: MARYCHUY PABON R A D I O L O G Y R E P O R T ======== PATIENT HISTORY: ABDOMINAL PAIN, DIARRHEA, VOMITING, MENOPAUSE, VERIFIED 2 IDENTIF[address], CT DOSE- 726.9mGy*cm. SENT TO [facility] / Dose Information (DICOM Hx) EXAM: CT Abdomen and Pelvis Without IV contrast CLINICAL HISTORY:ABDOMINAL PAIN, DIARRHEA, VOMITING, MENOPAUSE, VERIFIED 2 IDENTIF[address], CT DOSE- 726.9mGy*cm. SENT TO [facility] TECHNIQUE: Axial computed tomography images of the abdomen and pelvis without intravenous contrast. 4 Clinical Report - Physicians/Mid Levels [facility] Emergency Department [address] [place] [address] Phone #: ext- [phone] 05/22/2020 01:40 Patient: BRITNEY JUAREZ Sex: F : 1950 Age: 69y CONTRAST: No IV contrast. COMPARISON: CT FINDINGS: LUNG BASES: The lung bases appear clear. No pleural effusions are seen. LIVER: Unremarkable. GALLBLADDER AND BILE DUCTS:Prior cholecystectomy is noted. PANCREAS:The pancreas is atrophic. SPLEEN: Unremarkable. ADRENAL GLANDS:There is nodular thickening of the right greater than left adrenal glands likely due to adenomatous hyperplasia. KIDNEYS, URETERS, AND BLADDER:A 5.8 cm cyst is seen at the lower pole of the left kidney. Both kidneys are without hydronephrosis or stone. STOMACH AND BOWEL:Numerous diverticula are noted throughout the colon. There is no evidence of bowel obstruction. No definite bowel wall thickening is seen. There is mild edema surrounding the gastric antrum and prox imal duodenum. APPENDIX:Normal appendix. PERITONEUM: No free fluid. No free air. LYMPH NODES: No lymphadenopathy is evident. REPRODUCTIVE: Unremarkable as visualized. 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 Bilateral iliac artery stents are noted. BONES: No aggressive appearing osseous lesion. No acute osseous pathology evident. IMPRESSION: Mild edema surrounding the gastric antrum and proximal duodenum. Please correlate for ulcer disease or gastritis. Correlation with endoscopy may be warranted to exclude neoplasm. While performing the above CT examination, radiation dose reduction was accomplished utilizing automated exposure control, adjusting of the mA and kV based on the patient's body size and/or the use of imperative reconstructive techniques. Electronically Signed By: Miguel Angel Becker MD , Radiologist Date/Time: 05/22/20 06:19CBC w Diff: (MINDY: 05/22/2020 02:35) ( MsgRcvd 05/22/2020 02:50) Final results Test Result Flag Units (Reference) CBC W/AUTOMATED DIFF 5 Clinical Report - Physicians/Mid Levels [facility] Emergency Department [address] [place] [address] Phone #: ext- [phone] 05/22/2020 01:40 [id number] 1950 Age: 69y COMPLETE BLOOD COUNT WBC 12.1 H 10/uL (4.2 - 11.0) RBC 4.47 10/uL (4.20 - 5.40) HEMOGLOBIN 15.1 g/dL (12.0 - 16 .0) HEMATOCRIT 47.1 H % (37.0 - 47.0) MCV 105.4 H fL (81.0 - 101) MCH 33.8 pg (27.0 - 34.0) MCHC 32.1 g/dL (31.0 - 36.0) RDW 14.6 H % (11.5 - 14.5) PLATELETS 321 10/uL (150 - 450) MPV 10.0 fL (7.4 - 10.4) NEUT 91.7 H % (37.0 - 80.0) LYMPH 5.1 L % (25.0 - 40.0) MONO 1.8 L % (3.0 - 8.0) EOS 0.0 % (0.0 - 7.0) BASO 0.5 % (0.0 - 2.5) %IG 0.9 H % (0.0 - 0.0) %NRBC 0.0 % (0.0 - 0.0) #NEUT 11.05 H 10/uL (2.00 - 6.90) #LYMPH 0.62 10/uL (0.60 - 3.40) #MONO 0.22 10/uL (0.00 - 0.90) #EOS 0.00 10/uL (0.00 - 0.70) #BASO 0.06 10/uL (0.00 - 0.20) #IG 0.11 H 10/uL (0.00 - 0.10) #NRBC 0.00 10/uL (0.00 - 0.00) MANUAL DIFF NOT INDICATED RBC MORPH NOT DINAH CATEDCMP: (MINDY: 05/22/2020 02:35) ( MsgRcvd 05/22/2020 03:40) Final results Test Result Flag Units (Reference) COMPREHENSIVE METABOLIC PANEL COMPREHENSIVE METABOLIC PANEL SODIUM 142 mEq/L (134 - 153) POTASSIUM 3.9 mEq/L (3.6 - 5.0) CHLORIDE 98 mEq/L (98 - 107) CO2 24 MEQ/L (22 - 30) GLUCOSE 212 H MG/DL (65 - 110) BUN 18 MG/DL (7 - 21) CREATININE 1.0 MG/DL (0.7 - 1.5) BUN/CREAT 18 (8 - 27) TOTAL PROTEIN 7.3 G/DL (6.3 - 8.2) ALBUMIN 4.8 G/DL (3.9 - 5.0) GLOBULIN 2.5 GM/DL (2.4 - 3.2) A/G RATIO 1.9 (0.8 - 2.0) CALCIUM 10.6 H MG/DL (8.4 - 10.2) TOTAL BILI <0.7 MG/DL (0.2 - 1.3) ALKALINE PHOS 111 U/L (38 - 126) SGOT/AST 21 U/L (5 - 40) SGPT/ALT 20 U/L (7 - 56) ANION GAP 20.0 H mmol/L (8.0 - 16.0) AGE 69 yrs NON- AA GFR 58 mL/min AFR AMER GFR >60 Male GFR Interprentation 20-49 yrs >60 mL/min Mvrtpk51-45 yrs >56 mL/min Normal 60-69 yrs >49 mL/min Normal 70-79yrs>42 mL/min Normal 80 and above >35 mL/min Normal Female GFRInterpretation 20-39 yrs >60 mL/min Normal 40-49 yrs >58 mL/minNormal 50-59 yrs >51 mL/min Normal 60-69 yrs >45 mL/min Rerzst45-13 yrs >39 mL/min Normal 80 and above >32 mL/min Normal 6 Clinical Report - Physicians/Mid Levels [facility] Emergency Department [address] [place] [address] Phone #: ext- [phone] 05/22/2020 01:40 [id number]: [facility] 1950 Age: 69y Sed. Rate: (MINDY: 05/22/2020 02:35) ( [facility] 05/22/2020 03:05) Final results Test Result Flag Units (Reference) SED RATE 20 mm/hr (0 - 30) SED RATE REENTER 20 Lipase: (MINDY: 05/22/2020 02:35) ( [facility] 05/22/2020 03:40) Final results Test Result Flag Units (Reference) LIPASE 38 U/L (13 - 60) Troponin-T: (MINDY: 05/22/2020 02:35) ( [facility] 05/22/2020 03:07) Final results Test Result Flag Units (Reference) TROPONIN T <0.01 NG/ML (0.00 - 0.10) TROPONIN T0.1 ng/ml Recommended as the clinical threshold value forTroponin T. TSH: (MINDY: 05/22/2020 02:35) ( [facility] 05/22/2020 03:40) Final results Test Result Flag Units (Reference) TSH 0.43 L uIU/mL (0.47 - 5.01).PROGRESS AND PROCEDURESCourse of Care: 02:13 May 22 2020. (Patient's history obtained and exam completed. Treatment plandiscussed and agreed upon. Labs IVF and EKG and Phenergan.). 06:35 May 22 2020. (Multiple episodes of vomiting despite Multiple doses phenergan and Zofran IV. Call placed to [facility]). 06:40 May 22 2020. (Call placed to [facility] possible transfer . Reort given they are checking on bed availability.). 07:00 May 22 2020. (Spoke with Dr Pierre (GI) and Dr Herrera (ER) will except in transfer.). Patient counseled regarding the patient's condition and need for additional testing and transfer. Patient agrees with plan of care. 07:May 22 2020. Disposition: Transferred to [facility]. Summary of care (CCDA) provided to EMS and transfer facility via paper. 07:May 22 2020. UTI (catheter associated) was not present prior to transfer. Pressure ulcer was not present prior to transfer. Vascular infection (catheter associated) was not present prior to transfer. Surgical site infection was not present prior to transfer. An object left in surgery was not present prior to transfer. Blood incompatibility was not present prior to transfer. Air embolism was not present prior to transfer. Condition: serious.CLINICAL IMPRESSION Intractable vomiting with nausea. 7 Clinical Report - Physicians/[facility] Emergency Department [address] [place] [address] Phone #: ext- [phone] 05/22/2020 01:40 Patient: BRITNEY JAUREZ Sex: F : 1950 Age: 69y Acute gastritis. No alcoholic gastritis or hemorrhagic gastritis. Hypertension. Screening today revealed the patient's blood pressure to be in the hypertensive stage 2 range. Moderate hyperglycemia.(Electronically signed by Kendrick Nickerson, Physician 05/22/2020 07:08) Name Value Range Interpretation Code Description Data Theresa rce(s) Supporting Document(s) ID Date Data Source [id number] 05/22/2020 06:50:01 AM EDT [facility] Name Value Range Interpretation Code Description Data Theresa rce(s) Supporting Document(s) Progress Note [facility] [id number] [facility] [file] [id number] ID Date Data Source [id number] 05/22/2020 06:19:00 AM EDT [facility] [address] [place] [address] ---------NAME--------- NUMBER SEX AGE ADMIT DISC. XRAY# F/C TYPE BISMARK Thomson [id number] F 69 05/22/20 [id number] [id number] E/R DATE OF : 1950 M/R# [id number] #: [id number] TR-02 LOCATION: EMERGENCY DEPT TRANSCRIBED: 05/22/20 6:[address] ABD //T// PELV W/O ORAL W/[place] [id number] COMPLETED:05/22/20 5:06 KEVIN [id number] Reason(s): Abdominal Pain Diarrhea Vomiting PHYSICIAN: MARYCHUY PABON = R A D I O L O G Y R E P O R T PATIENT HISTORY:ABDOMINAL PAIN, DIARRHEA, VOMITING, MENOPAUSE, VERIFIED 2 IDENTIFIERS, CT DOSE-726.9mGy*cm. SENT TO [facility] / Dose Information (DICOM Hx)EXAM: CT Abdomen and Pelvis Without IV contrastCLINICAL HISTORY:ABDOMINAL PAIN, DIARRHEA, VOMITING, MENOPAUSE, VERIFIED 2IDENTIFIERS, CT DOSE- 726.9mGy*cm. [facility] Axial computed tomography images of the abdomen and pelvis withoutintravenous contrast.CONTRAST: No IV contrast.COMPARISON: CTFINDINGS:LUNG BASES: The lung bases appear clear. No pleural effusions are seen.LIVER: Unremarkable.GALLBLADDER AND BILE DUCTS:Prior cholecystectomy is noted.PANCREAS:The pancreas is atrophic.SPLEEN: Unremarkable.ADRENAL GLANDS:There is nodular thickening of the right greater than leftadrenal glands likely due to adenomatous hyperplasia.KIDNEYS, URETERS, AND BLADDER:A 5.8 cm cyst is seen at the lower pole of theleft kidney. Both kidneys are without hydronephrosis or stone.STOMACH AND BOWEL:Numerous diverticula are noted throughout the colon. There isno evidence of bowel obstruction. No definite bowel wall thickening is seen.There is mild edema surrounding the gastric antrum and proximal duodenum.APPENDIX:Normal appendix .PERITONEUM: No free fluid. 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 Bilateral iliac artery stents are noted.BONES: No aggressive appearing osseous lesion. No acute osseous pathologyevident.IMPRESSION:Mild edema surrounding the gastric antrum and proximal duodenum. Pleasecorrelate for ulcer disease or gastritis. Correlation with endoscopy may bewarranted to exclude neoplasm.While performing the above CT examination, radiation dose reduction wasaccomplished utilizing automated exposure control, adjusting of the mA and kVbased on the patient's body size and/or the use of imperative reconstructivetechniques.Electronically Signed By:Miguel Angel Becker MD , RadiologistDate/Time: 05/22/20 06:19 Name Value Range Interpretation Code Description Data Theresa rce(s) Supporting Document(s) ID Date Data Source [id number] 05/22/2020 03:40:[address] [facility] Name Value Range Interpretation Code Description Data Theresa rce(s) Supporting Document(s) Thyrotropin [Units/volume] in Serum or Plasma by Detec tion limit <= 0.05 mIU/L 0.43 uIU/mL 0.47 - 5.[address] [facility] ID Date Data Source [id number] 05/22/2020 03:40:[address] [facility] Name Value Range Interpretation Code Description Data Theresa rce(s) Supporting Document(s) Lipase [Enzymatic activity/volume] in Serum or Plasma 38 U/L 13 - 60 [facility] ID Date Data Source [id number] 05/22/2020 03:40:[address] [facility] Name Value Range Interpretation Code Description Data Theresa rce(s) Supporting Document(s) COMPREHENSIVE METABOLIC PANEL [facility] COMPREHENSIVE METABOLIC PANEL Sodium [Moles/volume] in Serum or Plasma 142 mEq/L 134 - 153 [facility] Potassium [Moles/volume] in Serum or Plasma 3.9 mEq/L 3.6 - 5.0 [facility] Chloride [Moles/volume] in Serum or Plasma 98 mEq/L 98 - 107 [facility] Carbon dioxide, total [Moles/volume] in Serum or Plasma 24 MEQ/L 22 - 30 [facility] Glucose [Mass/volume] in Serum or Plasma 212 MG/DL 65 - [address] [facility] BUN 18 MG/DL 7 - 21 [facility] al Creatinine [Mass/volume] in Serum or Plasma 1.0 MG/DL 0.7 - 1.5 [facility] BUN/CREAT 18 8 - 27 [facility] Protein [Mass/volume] in Serum or Plasma 7.3 G/DL 6.3 - 8.2 [facility] Albumin [Mass/volume] in Serum or Plasma 4.8 G/DL 3.9 - 5.0 [facility] Globulin [Mass/volume] in Serum by calculation 2.5 GM/DL 2.4 - 3.2 [facility] A/G RATIO 1.9 0.8 - 2.0 [facility] Calcium [Mass/volume] in Serum or Plasma 10.6 MG/DL 8.4 - 10.[address] [facility] Bilirubin.total [Mass/volume] in Serum or Plasma <0.7 MG/DL 0.2 - 1.3 [facility] Alkaline phosphatase [Enzymatic activity/volume] in Serum or Plasma 111 U/L 38 - 126 [facility] Aspartate aminotransferase [Enzymatic activity/volume] in Serum or Plasma 21 U/L 5 - 40 [facility] Alanine aminotransferase [Enzymatic activity/volume] in Seru m or Plasma 20 U/L 7 - 56 [facility] Anion gap 3 in Serum or Plasma 20.0 mmol/L 8.0 - 16.[address] [facility]GE 69 [facility] AFR AMER GFR >60 [facility] Male GFR In terprentation 20-49 yrs >60 mL/min Normal 50-59 yrs >56 mL/min Normal 60-69 yrs >49 mL/min Normal 70-79yrs >42 mL/min Normal 80 and above >35 mL/min Normal Female GFR Interpretation 20-39 yrs >60 mL/min Normal 40-49 yrs >58 mL/min Normal 50-59 yrs >51 mL/min Normal 60-69 yrs >45 mL/min Normal 70-79 yrs >39 mL/min Normal 80 and above >32 mL/min Normal ID Date Data Source [id number] 05/22/2020 03:07:[address] [facility] Name Value Range Interpretation Code Description Data Theresa rce(s) Supporting Document(s) TROPONIN T <0.01 NG/ML 0.00 - 0.10 [facility] ospital TROPONIN T0.1 ng/ml Recommended as the c linical threshold value forTroponin T. ID Date Data Source [id number] 05/22/2020 03:05:[address] [facility] Name Value Range Interpretation Code Description Data Theresa rce(s) Supporting Document(s) Erythrocyte sedimentation rate by Westergren method 20 mm/hr 0 - 30 [facility] SED RATE REENTER 20 [facility] ID Date Data Source [id number] 05/22/2020 02:50:[address] [facility] Name Value Range Interpretation Code Description Data Theresa rce(s) Supporting Document(s) CBC W/AUTOMATED DIFF [facility] COMPLETE BLOOD COUNT Leukocytes [#/volume] in Blood by Automated count 12.1 10^3/uL 4.2 - 11.[address] [facility] Erythrocytes [#/volume] in Blood by Automated count 4.47 10^6/uL 4. 20 - 5.40 [facility] Hemoglobin [Mass/volume] in Blood 15.1 g/dL 12.0 - 16.0 [facility] Hematocrit [Volume Fraction] of Blood by Automated count 47.1 % 3 7.0 - 47.[address] [facility] Erythrocyte mean corpuscular volume [Entitic volume] b y Automated count 105.4 fL 81.0 - [address] [facility] Erythrocyte mean corpuscular hemoglobin [Entitic mass] by Automated count 33.8 pg 27.0 - 34.0 [facility] Erythrocyte mean corpuscular hemoglobin concentration [Mass/volume] by Automated count 32.1 g/dL 31.0 - 36.0 [facility] Erythrocyte distribution width [Ratio] by Automated count 14.6 % 11.5 - 14.[address] [facility] Platelets [#/volume] in Blood by Automated count 321 10^3/uL 150 - [address] [facility] Platelet mean volume [Entitic volume] in Blood by Automated count 10.0 fL 7.4 - 10.4 [facility] Neutrophils/100 leukocytes in Blood by Automated count 91.7 % 37. 0 - 80.[address] [facility] Lymphocytes/100 leukocytes in Blood by Manual count 5.1 % 25.0 - 40.[address] [facility] Monocytes/100 leukocytes in Blood by Automated count 1.8 % 3.0 - 8.[address] [facility] Eosinophils/100 leukocytes in Blood by Automated count 0.0 % 0.0 - 7.0 [facility] Basophils/100 leukocytes in Blood by Automated count 0.5 % 0.0 - 2.5 [facility] %IG 0.9 % 0.0 - 0.0 [facility] %NRBC 0.0 % 0.0 - 0.0 [facility] al Neutrophils [#/volume] in Blood by Automated count 11.05 10^3/uL 2. 00 - 6.[address] [facility] Lymphocytes [#/volume] in Blood by Automated count 0.62 10^3/uL 0.60 - 3.40 [facility] Monocytes [#/volume] in Blood by Automated count 0.22 10^3/uL 0.00 - 0.90 [facility] Eosinophils [#/volume] in Blood by Automated count 0.00 10^3/uL 0.00 - 0.70 [facility] Basophils [#/volume] in Blood by Automated count 0.06 10^3/uL 0.00 - 0.20 [facility] #IG 0.11 10^3/uL 0.00 - 0.10 H [facility] ospital #NRBC 0.00 10^3/uL 0.00 - 0.00 [facility] MANUAL DIFF NOT INDICATED [facility] RBC MORPH NOT INDICATED [facility] ID Date Data Source [id number] 05/18/2020 04:24:00 PM EDT [facility] Patient Name: Britney Juarez DO B: 1950 Sex: F Pt Unit #: [id number] Location:[facility] Provider: Visit Date/Time: 05/18/20 Primary Insurance: [employer] MEDICARE Secondary Insurance: Self Pay Intake Vital Signs 05/18/20 16:24 Current Height 5 ft 2 in Current Weight 155 lb 0.6 oz Weight Measurement Method Standing Scale BMI 28.3 BP 120/60 Blood Pressure Location Lt brachial Position Sitting Respiration 18 Pulse 54 L Pulse Strength Normal Pulse Source Pulse Oximeter Pulse Oximetry (%) 97 Oxygen Delivery Method room air Intake Visit Reasons: Diarrhea Nurse Note: pt is here today for hospital discharge [facility] went home on pt went back may 07 and released 05/13 for severe diarrhea and weakness pt states her diarrhea ismuch better Is patient in pain?: Yes (gas bloating ) Pain scale (1- 10): 3 Allergies naproxen [From Naprosyn] Allergy (Severe, Unverified 07/06/19 16:04) Hives fenofibrate Adverse Reaction (Intermediate, Unverified 07/20/19 13:29) skin rash zolpidem [From Ambien] Adverse Reaction (Intermediate, Unverified 07/20/19 13:28) hallucinations eszopiclone [From Lunesta] Adverse Reaction (Unverified 07/20/19 13:27) hallucinations tramadol Adverse Reaction (Unverified 07/20/19 13:26) hallucination Medications acetaminophen 325 mg PO DAILY atorvastatin 20 mg PO QDAY folic acid 1 mg PO QDAY Lactobacillus acidophilus (Acidophilus) 2,000 mmu cells PO BID methotrexate sodium 15 mg PO QWEEK metoclopramide HCl 10 mg PO Q8H PRN metoprolol tartrate TAKE ONE TABLET BY MOUTH EVERY DAY polyethylene glycol 3350 (Miralax) 17 grams PO QDAY PRN potassium chloride ER 20 mEq PO HS prednisolone 5 mg PO QAM trazodone TAKE ONE TABLET BY MOUTH EVERY DAY Fall Risk History of falls: No Ambulatory Aid:: None Gait/Transferring:: Normal Medications:: Antihypertensives HIV Testing Offer - ages 13-64 Requirement for HIV testing offer been met?: Not in age range Coronavirus Screening Screeni ng Have you traveled outside of [facility] or [facility] in the last 14 days.: No Has patient experienced coronavirus symptoms: No [facility] Social History Does the Patient have a Healthcare Proxy: No Does Patient have a DNR?: No Does Patient have a Living Will?: No HPI Additional HPI HPI Details: RECHECK FROM HOSPITALIZATION DIARRHEA HAS IMPROVED. X 2 TODAY. FEELING BETTER. Diarrhea History of Present Illness Associated symptoms: Reports cramping and vomiting Review of Systems Const All systems reviewed are unremarkable except as noted in HPI and below Reports system reviewed and no additional complaints, except as documented Eyes Reports system reviewed and no additional complaints, except as documented ENT Reports system reviewed and no additional complaints, except as documented Card Reports system reviewed and no additional complaints, except as documented Resp Reports system reviewed and no additional complaints, except as documented GI Reports cramping, Reports diarrhea and Reports vomiting Details: NO FURTHER VOMITING DIARRHEA HAS IMPROVED. Genitourinary: Reports system reviewed and no additional complaints, except as documented Musc Reports system reviewed and no additional complaints, except as documented Skin/Breast Reports system reviewed and no additional complaints, except as documented Neuro Reports system reviewed and no additional complaints, except as documented Psych Reports system reviewed and no additional complaints, except as documented Endo Reports system reviewed and no additional complaints, except as documented Haroldo/Lymph Reports system reviewed and no additional complaints, except as documented Aller/Immun Reports system reviewed and no additional complaints, except as documented Exam Const General: cooperative, healthy appearing, no acute distress, well developed and well groomed Nutritional Appearance: well nourished Orientation: alert, awake and oriented x3 HENMT Head: normal to inspection, normocephalic, atraumatic and no scalp tenderness Ears: hearing grossly normal bilaterally, external ears normal, TM's normal bilaterally, EAC's normal and no periauricular adenopathy General nose exam: external nose normal, nares normal, no nasal polyps, septum normal and no nasal discharge Face and sinus: normal facial exam and sinuses nontender Mouth: oral mucosae normal, oropharynx normal and moist mucous membranes Throat: posterior oropharynx normal Neck Neck: normal visual inspection, full ROM and no lymphadenopathy Neck mass: No Thyroid: thyroid normal Carotids: normal carotid upstroke Resp Effort Inspection: normal respiratory effort Auscultation: clear to auscultation bilaterally Percussion: percussion normal Cardio Rate: regular rate Rhythm: regular rhythm Heart Sounds: S1 normal and S2 normal Pulses: normal peripheral pulses GI Inspection: Yes normal to inspection Palpation: soft and no hepatosplenomegaly Percussion: normal to percussion Auscultation: normal bowel sounds General: No CVA tenderness Musc Cervical Spine: normal cervical lordosis and cervical ROM normal Thoracic/Lumbar Spine: thoracic and lumbar spine normal to inspection and thoraco-lumbar ROM normal Skin Lesions: no lesions Rashes: no rashes Hair: normal Nails: normal Neuro General: patient alert, patient awake, patient oriented x3 and gait normal Cranial Nerves: CN's II-XII intact bilaterally Cognition: normal cognition Speech: speech normal Gait: normal gait Extrem General: normal to inspection, full ROM, capillary refill normal and no clubbing, cyanosis or edema Psych Appearance: grossly normal and well kempt Mental Status: mental status grossly normal Speech and Movement: speech and movement normal Affect: normal affect Attitude: cooperative Thought Process: normal Thought Content: normal Insight: insight good Judgment: judgment good Assessment Plan Assessment Plan (1) Diarrhea: Status: Acute Code(s): R19.7 - Diarrhea, unspecified SNOMED Code(s): 34011652 Category: Medical Plan - Maria Luisa Elizondo AEROPHYSICIST: CMP KEEP SCHEDULED APPT. Orders Other Medications: New: folic acid 1 mg PO QDAY 90 tabs 3RF Refilled: atorvastatin 20 mg PO QDAY 90 tabs 3RF Electronically Signed By: <Electronically signed by Maria Luisa Elizondo NP> Date/Time Signed: 05/18/20 1712 Name Value Range Interpretation Code Description Data Theresa rce(s) Supporting Document(s) ID Date Data Source [id number] 05/13/2020 08:11:[address] [facility] Name Value Range Interpretation Code Description Data Theresa rce(s) Supporting Document(s) BASIC METABOLIC PANEL [facility] BASIC METABOLIC PANEL Sodium [Moles/volume] in Serum or Plasma 143 mEq/L 134 - 153 [facility] Potassium [Moles/volume] in Serum or Plasma 4.3 mEq/L 3.6 - 5.0 [facility] Chloride [Moles/volume] in Serum or Plasma 103 mEq/L 98 - 107 [facility] Carbon dioxide, total [Moles/volume] in Serum or Plasma 30 MEQ/L 22 - 30 [facility] Glucose [Mass/volume] in Serum or Plasma 84 MG/DL 65 - 110 [facility] BUN 13 MG/DL 7 - 21 [facility] al Creatinine [Mass/volume] in Serum or Plasma 0.8 MG/DL 0.7 - 1.5 [facility] BUN/CREAT 16 8 - 27 [facility] al Calcium [Mass/volume] in Serum or Plasma 9.4 MG/DL 8.4 - 10.2 [facility] Anion gap 3 in Serum or Plasma 10.0 mmol/L 8.0 - 16.0 [facility] AGE 69 yrs [facility] al AFR AMER GFR >60 [facility] NON-AA GFR >60 mL/min [facility] ital Male GFR Inter prentation 20-49 yrs >60 mL/min Normal 50-59 yrs >56 mL/min Normal 60-69 yrs >49 mL/min Normal 70-79yrs >42 mL/min Normal 80 and above >35 mL/min Normal Female GFR Interpretation 20-39 yrs >60 mL/min Normal 40-49 yrs >58 mL/min Normal 50-59 yrs >51 mL/min Normal 60-69 yrs >45 mL/min Normal 70-79 yrs >39 mL/min Normal 80 and above >32 mL/min Normal ID Date Data Source [id number] 05/13/2020 07:49:[address] [facility] Name Value Range Interpretation Code Description Data Theresa rce(s) Supporting Document(s) CBC W/AUTOMATED DIFF [facility] COMPLETE BLOOD COUNT Leukocytes [#/volume] in Blood by Automated count 9.7 10^3/uL 4.2 - [address] [facility] Erythrocytes [#/volume] in Blood by Automated count 3.30 10^6/uL 4. 20 - 5.[address] [facility] Hemoglobin [Mass/volume] in Blood 11.7 g/dL 12.0 - 16.[address] [facility] Hematocrit [Volume Fraction] of Blood by Automated count 36.8 % 3 7.0 - 47.[address] [facility] Erythrocyte mean corpuscular volume [Entitic volume] b y Automated count 111.5 fL 81.0 - [address] [facility] Erythrocyte mean corpuscular hemoglobin [Entitic mass] by Automated count 35.5 pg 27.0 - 34.[address] [facility] Erythrocyte mean corpuscular hemoglobin concentration [Mass/volume] by Automated count 31.8 g/dL 31.0 - 36.0 [facility] Erythrocyte distribution width [Ratio] by Automated count 15.4 % 11.5 - 14.[address] [facility] Platelets [#/volume] in Blood by Automated count 178 10^3/uL 150 - [address] [facility] Platelet mean volume [Entitic volume] in Blood by Automated count 10.1 fL 7.4 - 10.4 [facility] Neutrophils/100 leukocytes in Blood by Automated count 78.6 % 37. 0 - 80.0 [facility] Lymphocytes/100 leukocytes in Blood by Manual count 9.7 % 25.0 - 40.[address] [facility] Monocytes/100 leukocytes in Blood by Automated count 8.4 % 3.0 - 8.[address] [facility] Eosinophils/100 leukocytes in Blood by Automated count 2.1 % 0.0 - 7.0 [facility] Basophils/100 leukocytes in Blood by Automated count 0.5 % 0.0 - 2.5 [facility] %IG 0.7 % 0.0 - 0.0 [facility] %NRBC 0.0 % 0.0 - 0.0 [facility] al Neutrophils [#/volume] in Blood by Automated count 7.59 10^3/uL 2.00 - 6.[address] [facility] Lymphocytes [#/volume] in Blood by Automated count 0.94 10^3/uL 0.60 - 3.40 [facility] Monocytes [#/volume] in Blood by Automated count 0.81 10^3/uL 0.00 - 0.90 [facility] Eosinophils [#/volume] in Blood by Automated count 0.20 10^3/uL 0.00 - 0.70 [facility] Basophils [#/volume] in Blood by Automated count 0.05 10^3/uL 0.00 - 0.20 [facility] #IG 0.07 10^3/uL 0.00 - 0.10 [facility] #NRBC 0.00 10^3/uL 0.00 - 0.00 [facility] MANUAL DIFF NOT INDICATED [facility] RBC MORPH NOT INDICATED [facility] ID Date Data Source [id number] 05/12/2020 07:26:[address] [facility] Name Value Range Interpretation Code Description Data Theresa rce(s) Supporting Document(s) Magnesium [Mass/volume] in Serum or Plasma 2.0 MG/DL 1.7 - 2.2 [facility] ID Date Data Source [id number] 05/12/2020 07:25:[address] [facility] Name Value Range Interpretation Code Description Data Theresa rce(s) Supporting Document(s) BASIC METABOLIC PANEL [facility] BASIC METABOLIC PANEL Sodium [Moles/volume] in Serum or Plasma 144 mEq/L 134 - 153 [facility] Potassium [Moles/volume] in Serum or Plasma 4.7 mEq/L 3.6 - 5.0 [facility] Chloride [Moles/volume] in Serum or Plasma 105 mEq/L 98 - 107 [facility] Carbon dioxide, total [Moles/volume] in Serum or Plasma 34 MEQ/L 22 - [address] [facility] Glucose [Mass/volume] in Serum or Plasma 85 MG/DL 65 - 110 [facility] BUN 12 MG/DL 7 - [address] [facility] Creatinine [Mass/volume] in Serum or Plasma 0.8 MG/DL 0.7 - 1.5 [facility] BUN/CREAT 15 8 - 27 [facility] Calcium [Mass/volume] in Serum or Plasma 9.4 MG/DL 8.4 - 10.2 [facility] Anion gap 3 in Serum or Plasma 5.0 mmol/L 8.0 - 16.[address] [facility]GE 69 [facility] AMER GFR >60 [facility] NON-AA GFR >60 mL/min [facility] Male GFR Inter prentation 20-49 yrs >60 mL/min Normal 50-59 yrs >56 mL/min Normal 60-69 yrs >49 mL/min Normal 70-79yrs >42 mL/min Normal 80 and above >35 mL/min Normal Female GFR Interpretation 20-39 yrs >60 mL/min Normal 40-49 yrs >58 mL/min Normal 50-59 yrs >51 mL/min Normal 60-69 yrs >45 mL/min Normal 70-79 yrs >39 mL/min Normal 80 and above >32 mL/min Normal ID Date Data Source [id number] 05/12/2020 06:54:[address] [facility] Name Value Range Interpretation Code Description Data Theresa rce(s) Supporting Document(s) CBC W/AUTOMATED DIFF [facility] COMPLETE BLOOD COUNT Leukocytes [#/volume] in Blood by Automated count 8.2 10^3/uL 4.2 - [address] [facility] Erythrocytes [#/volume] in Blood by Automated count 3.35 10^6/uL 4. 20 - 5.[address] [facility] Hemoglobin [Mass/volume] in Blood 11.8 g/dL 12.0 - 16.[address] [facility] Hematocrit [Volume Fraction] of Blood by Automated count 37.7 % 3 7.0 - 47.0 [facility] Erythrocyte mean corpuscular volume [Entitic volume] b y Automated count 112.5 fL 81.0 - [address] [facility] Erythrocyte mean corpuscular hemoglobin [Entitic mass] by Automated count 35.2 pg 27.0 - 34.[address] [facility] Erythrocyte mean corpuscular hemoglobin concentration [Mass/volume] by Automated count 31.3 g/dL 31.0 - 36.0 [facility] Erythrocyte distribution width [Ratio] by Automated count 15.7 % 11.5 - 14.[address] [facility] Platelets [#/volume] in Blood by Automated count 214 10^3/uL 150 - [address] [facility] Platelet mean volume [Entitic volume] in Blood by Automated count 10.3 fL 7.4 - 10.4 [facility] Neutrophils/100 leukocytes in Blood by Automated count 75.2 % 37. 0 - 80.0 [facility] Lymphocytes/100 leukocytes in Blood by Manual count 11.5 % 25.0 - 40.[address] [facility] Monocytes/100 leukocytes in Blood by Automated count 9.9 % 3.0 - 8.[address] [facility] Eosinophils/100 leukocytes in Blood by Automated count 2.0 % 0.0 - 7.0 [facility] Basophils/100 leukocytes in Blood by Automated count 0.4 % 0.0 - 2.5 [facility] %IG 1.0 % 0.0 - 0.0 H [facility] %NRBC 0.0 % 0.0 - 0.0 [facility] al Neutrophils [#/volume] in Blood by Automated count 6.16 10^3/uL 2.00 - 6.90 [facility] Lymphocytes [#/volume] in Blood by Automated count 0.94 10^3/uL 0.60 - 3.40 [facility] Monocytes [#/volume] in Blood by Automated count 0.81 10^3/uL 0.00 - 0.90 [facility] Eosinophils [#/volume] in Blood by Automated count 0.16 10^3/uL 0.00 - 0.70 [facility] Basophils [#/volume] in Blood by Automated count 0.03 10^3/uL 0.00 - 0.20 [facility] #IG 0.08 10^3/uL 0.00 - 0.10 [facility] ospital #NRBC 0.00 10^3/uL 0.00 - 0.00 [facility] o[facility] MANUAL DIFF NOT INDICATED [facility] RBC MORPH NOT INDICATED [facility] spital ID Date Data Source [id number] 05/11/2020 07:15:[address] [facility] Name Value Range Interpretation Code Description Data Theresa rce(s) Supporting Document(s) COMPREHENSIVE METABOLIC PANEL [facility] COMPREHENSIVE METABOLIC PANEL Sodium [Moles/volume] in Serum or Plasma 144 mEq/L 134 - 153 [facility] Potassium [Moles/volume] in Serum or Plasma 4.3 mEq/L 3.6 - 5.0 [facility] Chloride [Moles/volume] in Serum or Plasma 104 mEq/L 98 - 107 [facility] Carbon dioxide, total [Moles/volume] in Serum or Plasma 33 MEQ/L 22 - [address] [facility] Glucose [Mass/volume] in Serum or Plasma 83 MG/DL 65 - 110 [facility] BUN 11 MG/DL 7 - 21 [facility] Creatinine [Mass/volume] in Serum or Plasma 0.9 MG/DL 0.7 - 1.5 [facility] BUN/CREAT 12 8 - 27 [facility] Protein [Mass/volume] in Serum or Plasma 5.6 G/DL 6.3 - 8.[address] [facility] Albumin [Mass/volume] in Serum or Plasma 3.7 G/DL 3.9 - 5.[address] [facility] Globulin [Mass/volume] in Serum by calculation 1.9 GM/DL 2.4 - 3.[address] [facility] A/G RATIO 1.9 0.8 - 2.0 [facility] Calcium [Mass/volume] in Serum or Plasma 9.4 MG/DL 8.4 - 10.2 [facility] Bilirubin.total [Mass/volume] in Serum or Plasma <0.7 MG/DL 0.2 - 1.3 [facility] Alkaline phosphatase [Enzymatic activity/volume] in Serum or Plasma 85 U/L 38 - 126 [facility] Aspartate aminotransferase [Enzymatic activity/volume] in Serum or Plasma 23 U/L 5 - 40 [facility] Alanine aminotransferase [Enzymatic activity/volume] in Seru m or Plasma 18 U/L 7 - 56 [facility] Anion gap 3 in Serum or Plasma 7.0 mmol/L 8.0 - 16.[address] [facility] AGE 69 yrs [facility] al NON-AA GFR >60 mL/min [facility] ital AFR AMER GFR >60 [facility] Male GFR In terprentation 20-49 yrs >60 mL/min Normal 50-59 yrs >56 mL/min Normal 60-69 yrs >49 mL/min Normal 70-79yrs >42 mL/min Normal 80 and above >35 mL/min Normal Female GFR Interpretation 20-39 yrs >60 mL/min Normal 40-49 yrs >58 mL/min Normal 50-59 yrs >51 mL/min Normal 60-69 yrs >45 mL/min Normal 70-79 yrs >39 mL/min Normal 80 and above >32 mL/min Normal ID Date Data Source [id number] 05/11/2020 06:33:[address] [facility] Name Value Range Interpretation Code Description Data Theresa rce(s) Supporting Document(s) CBC W/AUTOMATED DIFF [facility] COMPLETE BLOOD COUNT Leukocytes [#/volume] in Blood by Automated count 9.0 10^3/uL 4.2 - [address] [facility] Erythrocytes [#/volume] in Blood by Automated count 3.44 10^6/uL 4. 20 - 5.[address] [facility] Hemoglobin [Mass/volume] in Blood 12.0 g/dL 12.0 - 16.0 [facility] Hematocrit [Volume Fraction] of Blood by Automated count 38.5 % 3 7.0 - 47.0 [facility] Erythrocyte mean corpuscular volume [Entitic volume] b y Automated count 111.9 fL 81.0 - [address] [facility] Erythrocyte mean corpuscular hemoglobin [Entitic mass] by Automated count 34.9 pg 27.0 - 34.[address] [facility] Erythrocyte mean corpuscular hemoglobin concentration [Mass/volume] by Automated count 31.2 g/dL 31.0 - 36.0 [facility] Erythrocyte distribution width [Ratio] by Automated count 15.9 % 11.5 - 14.[address] [facility] Platelets [#/volume] in Blood by Automated count 282 10^3/uL 150 - [address] [facility] Platelet mean volume [Entitic volume] in Blood by Automated count 9.5 fL 7.4 - 10.4 [facility] Neutrophils/100 leukocytes in Blood by Automated count 76.3 % 37. 0 - 80.0 [facility] Lymphocytes/100 leukocytes in Blood by Manual count 11.7 % 25.0 - 40.[address] [facility] Monocytes/100 leukocytes in Blood by Automated count 8.9 % 3.0 - 8.[address] [facility] Eosinophils/100 leukocytes in Blood by Automated count 0.9 % 0.0 - 7.0 [facility] Basophils/100 leukocytes in Blood by Automated count 0.3 % 0.0 - 2.5 [facility] %IG 1.9 % 0.0 - 0.0 [facility] %NRBC 0.2 % 0.0 - 0.0 [facility] Neutrophils [#/volume] in Blood by Automated count 6.83 10^3/uL 2.00 - 6.90 [facility] Lymphocytes [#/volume] in Blood by Automated count 1.05 10^3/uL 0.60 - 3.40 [facility] Monocytes [#/volume] in Blood by Automated count 0.80 10^3/uL 0.00 - 0.90 [facility] Eosinophils [#/volume] in Blood by Automated count 0.08 10^3/uL 0.00 - 0.70 [facility] Basophils [#/volume] in Blood by Automated count 0.03 10^3/uL 0.00 - 0.20 [facility] #IG 0.17 10^3/uL 0.00 - 0.10 H [facility]spital #NRBC 0.02 10^3/uL 0.00 - 0.00 H [facility] ospital MANUAL DIFF NOT INDICATED [facility] RBC MORPH NOT INDICATED [facility] spital ID Date Data Source [id number] 05/10/2020 08:38:[address] [facility] Name Value Range Interpretation Code Description Data Theresa rce(s) Supporting Document(s) Iron [Mass/volume] in Serum or Plasma 54 UG/DL 42 - 135 [facility] ID Date Data Source [id number] 05/10/2020 07:33:[address] [facility] Name Value Range Interpretation Code Description Data Theresa rce(s) Supporting Document(s) COMPREHENSIVE METABOLIC PANEL [facility] COMPREHENSIVE METABOLIC PANEL Sodium [Moles/volume] in Serum or Plasma 142 mEq/L 134 - 153 [facility] Potassium [Moles/volume] in Serum or Plasma 4.1 mEq/L 3.6 - 5.0 [facility] Chloride [Moles/volume] in Serum or Plasma 103 mEq/L 98 - 107 [facility] Carbon dioxide, total [Moles/volume] in Serum or Plasma 31 MEQ/L 22 - [address] [facility] Glucose [Mass/volume] in Serum or Plasma 83 MG/DL 65 - 110 [facility] BUN 10 MG/DL 7 - 21 [facility] Creatinine [Mass/volume] in Serum or Plasma 0.9 MG/DL 0.7 - 1.5 [facility] BUN/CREAT 11 8 - 27 [facility] Protein [Mass/volume] in Serum or Plasma 5.2 G/DL 6.3 - 8.[address] [facility] Albumin [Mass/volume] in Serum or Plasma 3.5 G/DL 3.9 - 5.[address] [facility] Globulin [Mass/volume] in Serum by calculation 1.7 GM/DL 2.4 - 3.[address] [facility] A/G RATIO 2.1 0.8 - 2.0 H [facility] Calcium [Mass/volume] in Serum or Plasma 9.3 MG/DL 8.4 - 10.2 [facility] Bilirubin.total [Mass/volume] in Serum or Plasma <0.7 MG/DL 0.2 - 1.3 [facility] Alkaline phosphatase [Enzymatic activity/volume] in Serum or Plasma 86 U/L 38 - 126 [facility] Aspartate aminotransferase [Enzymatic activity/volume] in Serum or Plasma 20 U/L 5 - 40 [facility] Alanine aminotransferase [Enzymatic activity/volume] in Seru m or Plasma 16 U/L 7 - 56 [facility] Anion gap 3 in Serum or Plasma 8.0 mmol/L 8.0 - 16.0 [facility] AGE 69 yrs [facility] al NON-AA GFR >60 mL/min [facility] ital AFR AMER GFR >60 [facility] Male GFR In terprentation 20-49 yrs >60 mL/min Normal 50-59 yrs >56 mL/min Normal 60-69 yrs >49 mL/min Normal 70-79yrs >42 mL/min Normal 80 and above >35 mL/min Normal Female GFR Interpretation 20-39 yrs >60 mL/min Normal 40-49 yrs >58 mL/min Normal 50-59 yrs >51 mL/min Normal 60-69 yrs >45 mL/min Normal 70-79 yrs >39 mL/min Normal 80 and above >32 mL/min Normal ID Date Data Source [id number] 05/10/2020 07:07:[address] [facility] Name Value Range Interpretation Code Description Data Theresa rce(s) Supporting Document(s) CBC W/AUTOMATED DIFF [facility] COMPLETE BLOOD COUNT Leukocytes [#/volume] in Blood by Automated count 8.7 10^3/uL 4.2 - [address] [facility] Erythrocytes [#/volume] in Blood by Automated count 3.14 10^6/uL 4. 20 - 5.[address] [facility] Hemoglobin [Mass/volume] in Blood 11.0 g/dL 12.0 - 16.[address] [facility] Hematocrit [Volume Fraction] of Blood by Automated count 34.9 % 3 7.0 - 47.[address] [facility] Erythrocyte mean corpuscular volume [Entitic volume] b y Automated count 111.1 fL 81.0 - [address] [facility] Erythrocyte mean corpuscular hemoglobin [Entitic mass] by Automated count 35.0 pg 27.0 - 34.[address] [facility] Erythrocyte mean corpuscular hemoglobin concentration [Mass/volume] by Automated count 31.5 g/dL 31.0 - 36.0 [facility] Erythrocyte distribution width [Ratio] by Automated count 15.8 % 11.5 - 14.[address] [facility] Platelets [#/volume] in Blood by Automated count 331 10^3/uL 150 - [address] [facility] Platelet mean volume [Entitic volume] in Blood by Automated count 9.5 fL 7.4 - 10.4 [facility] Neutrophils/100 leukocytes in Blood by Automated count 71.4 % 37. 0 - 80.0 [facility] Lymphocytes/100 leukocytes in Blood by Manual count 16.8 % 25.0 - 40.[address] [facility] Monocytes/100 leukocytes in Blood by Automated count 8.8 % 3.0 - 8.[address] [facility] Eosinophils/100 leukocytes in Blood by Automated count 0.7 % 0.0 - 7.0 [facility] Basophils/100 leukocytes in Blood by Automated count 0.3 % 0.0 - 2.5 [facility] %IG 2.0 % 0.0 - 0.0 [facility] %NRBC 0.0 % 0.0 - 0.0 [facility] Neutrophils [#/volume] in Blood by Automated count 6.18 10^3/uL 2.00 - 6.90 [facility] Lymphocytes [#/volume] in Blood by Automated count 1.45 10^3/uL 0.60 - 3.40 [facility] Monocytes [#/volume] in Blood by Automated count 0.76 10^3/uL 0.00 - 0.90 [facility] Eosinophils [#/volume] in Blood by Automated count 0.06 10^3/uL 0.00 - 0.70 [facility] Basophils [#/volume] in Blood by Automated count 0.03 10^3/uL 0.00 - 0.20 [facility] #IG 0.17 10^3/uL 0.00 - 0.10 [facility] #NRBC 0.00 10^3/uL 0.00 - 0.00 [facility] MANUAL DIFF NOT INDICATED [facility] RBC MORPH NOT INDICATED [facility] spital ID Date Data Source [id number] 05/09/2020 09:39:00 AM EDT [facility] [address] [place] [address] PHONE: [phone] FAX: [phone] Name .................. : BISMARK Thomson Acct Number.................. : [id number] ROOM. ................. : TR-05 Number ................... : [id number] Stay type ............. : E/R Discharge Date......... ... : Admit Date ......... : 05/07/20 Admit Phys .................... : MARYCHUY PEPPER Date of ....... : 1950 Family Phys ................... : SMITH Phone .................. : [phone] Age ................................ : 69 Film# .................. .:[id number] Sex ................................. : F Unsigned transcriptions are preliminary reports and do not represent a medical or legal document CT ABD & PELVIS W/ IV ONLY [id number] COMPLETE:05/07/20 10:38 [facility] [place] [id number] Reason(s): Abdominal Pain CT OF THE ABDOMEN AND PELVIS WITH CONTRAST: HISTORY: Abdominal pain. COMPARISON: Prior study dated 04/27/20. FINDINGS: The lung bases are clear. There is no pleural or pericardial effusion noted. The liver is unremarkable. There is an ill-defined region of hypodensity noted within the liver. Findings are nonspecific. MRI may be performed for further evaluation. The patient is status post cholecystectomy. There are bilateral adrenal nodules noted. Adrenal cortical imaging may be performed for further evaluation. There is a large 5 cm cyst noted within the left kidney. There are subcentimeter hypodensities noted within the right kidney which are too small to further characterize. The spleen and the pancreas are unremarkable. There is scattered atherosclerotic disease noted. There are metallic coils noted within the right internal iliac artery. There are bilateral stents noted in the common iliac arteries. The bladder is partially collapsed, limiting evaluation. The uterus and adnexa are unremarkable. There is no evidence of bowel obstruction. There is no bowel wall thickening noted. The appendix is visualized and is unremarkable. The visualized bony structures are unremarkable. There is loss of intervertebral space. There is no evidence of abnormal adenopathy. The visualized bony structures demonstrate degenerative changes. There is a stable ventral hernia containing mesenteric fat. IMPRESSION: Stable, chronic changes as described above. No evidence of acute intra-abdominal pathology. While performing the above CT examination, radiation dose reduction was accomplished utilizing automated exposure control, adjusting of the mA and kV based on the patient's body size and/or the use of imperative reconstructive techniques. CT dose: 542.3 mGycm Page 1 of 2 [facility] [address] [place] [address] PHONE: [phone] FAX: [phone] Name .................. : BISMARK Thomson Acct Number.................. : [id number] ROOM. ................. : TR-05 MR Number ................... : [id number] Stay type ............. : E/R Discharge Date......... ... : Admit Date ......... : 05/07/20 Admit Phys .................... : MARYCHUY PABON Date of ....... : 1950 Family Phys ................... : SMITH Phone .................. : [phone] Age ................................ : 69 Film# .................. .:[id number] Sex ................................. : F Unsigned transcriptions are preliminary reports and do not represent a medical or legal document CT ABD & PELVIS W/ IV ONLY 07100 COMPLETE:05/07/20 10:38 [facility] [place] [id number] Reason(s): Abdominal Pain Contrast agent in mL: 75 Isovue 370 Method of administration: Intravenous Electronically Reviewed and Signed By Bennett Syed MD , 05/09/20 09:39, S Transcribe Initials: DZ , Transcribe Date: 05/07/20 11:02, Dictation Date: Copy for: EMERGENCY DEPT via modem Copy for: 710 MED REC Page 2 of 2 Name Value Range Interpretation Code Description Data Theresa rce(s) Supporting Document(s) ID Date Data Source [id number] 05/09/2020 07:57:00 [place] [address] RESPIRATORY CARE REPORT ==== ---------NAME------- NUMBER SEX AGE ADMIT DISC. XRAY# F/C TYPECLERAE Thomson [id number] F 69 05/07/20 [id number] MB3 O/P DATE OF : 1950 M/R# [id number] PH#: [phone] LOCATION: EMERGENCY DEPT EKG 51621 COMP LETE:05/07/20 13:47 [facility] [id number] PHYSICIAN: KENNY PABON Name Value Range Interpretation Code Description Data Theresa rce(s) Supporting Document(s) ID Date Data Source [id number] 05/09/2020 11:21:[address] [facility] Name Value Range Interpretation Code Description Data Theresa rce(s) Supporting Document(s) Magnesium [Mass/volume] in Serum or Plasma 1.8 MG/DL 1.7 - 2.2 [facility] ID Date Data Source [id number] 05/09/2020 07:25:[address] [facility] Name Value Range Interpretation Code Description Data Theresa rce(s) Supporting Document(s) CBC W/AUTOMATED DIFF [facility] COMPLETE BLOOD COUNT Leukocytes [#/volume] in Blood by Automated count 11.0 10^3/uL 4.2 - 11.0 [facility] Erythrocytes [#/volume] in Blood by Automated count 3.32 10^6/uL 4. 20 - 5.[address] [facility] Hemoglobin [Mass/volume] in Blood 11.8 g/dL 12.0 - 16.[address] [facility] Hematocrit [Volume Fraction] of Blood by Automated count 36.8 % 3 7.0 - 47.[address] [facility] Erythrocyte mean corpuscular volume [Entitic volume] b y Automated count 110.8 fL 81.0 - [address] [facility] Erythrocyte mean corpuscular hemoglobin [Entitic mass] by Automated count 35.5 pg 27.0 - 34.[address] [facility] Erythrocyte mean corpuscular hemoglobin concentration [Mass/volume] by Automated count 32.1 g/dL 31.0 - 36.0 [facility] Erythrocyte distribution width [Ratio] by Automated count 15.7 % 11.5 - 14.[address] [facility] Platelets [#/volume] in Blood by Automated count 457 10^3/uL 150 - [address] [facility] Platelet mean volume [Entitic volume] in Blood by Automated count 9.4 fL 7.4 - 10.4 [facility] Neutrophils/100 leukocytes in Blood by Automated count 78.2 % 37. 0 - 80.0 [facility] Lymphocytes/100 leukocytes in Blood by Manual count 8.8 % 25.0 - 40.[address] [facility] Monocytes/100 leukocytes in Blood by Automated count 9.4 % 3.0 - 8.[address] [facility] Eosinophils/100 leukocytes in Blood by Automated count 0.2 % 0.0 - 7.0 [facility] 0.5 %IG 2.9 % 0.0 - 0.0 [facility] %NRBC 0.0 % 0.0 - 0.0 [facility] al Neutrophils [#/volume] in Blood by Automated count 8.63 10^3/uL 2.00 - 6.[address] [facility] Lymphocytes [#/volume] in Blood by Automated count 0.97 10^3/uL 0.60 - 3.40 [facility] Monocytes [#/volume] in Blood by Automated count 1.04 10^3/uL 0.00 - 0.[address] [facility] Eosinophils [#/volume] in Blood by Automated count 0.02 10^3/uL 0.00 - 0.70 [facility] Basophils [#/volume] in Blood by Automated count 0.06 10^3/uL 0.00 - 0.20 [facility] #IG 0.32 10^3/uL 0.00 - 0.10 H [facility] #NRBC 0.00 10^3/uL 0.00 - 0.00 [facility] ospital MANUAL DIFF SEE BELOW [facility] ital Segmented neutrophils/100 leukocytes in Blood by Manual count 86 % 37 - [address] [facility] BAND 0 % 0 - 5 [facility] al %LYMPH 7 % 25 - 40 L [facility] %MONO 7 % 3 - 8 [facility] %EOS 0 % 0 - 7 [facility] 0 RBC MORPH SEE BELOW [facility] Anisocytosis [Presence] in Blood by Light microscopy 2+ BRITTANY L: NONE SEEN A [facility] Macrocytes [Presence] in Blood by Light microscopy 2+ NORMAL: NONE SEEN A [facility] Poikilocytosis [Presence] in Blood by Light microscopy 1+ NOR MAL: NONE SEEN A [facility] { SICKLE CELL (NORMAL: NONE SEEN ) Dacrocytes [Presence] in Blood by Light microscopy 1+ NORMAL: NONE SEEN A [facility] COMMENT: ID Date Data Source [id number] 05/09/2020 06:44:[address] [facility] Name Value Range Interpretation Code Description Data Theresa rce(s) Supporting Document(s) BASIC METABOLIC PANEL [facility] BASIC METABOLIC PANEL Sodium [Moles/volume] in Serum or Plasma 139 mEq/L 134 - 153 [facility] Potassium [Moles/volume] in Serum or Plasma 4.3 mEq/L 3.6 - 5.0 [facility] Chloride [Moles/volume] in Serum or Plasma 102 mEq/L 98 - 107 [facility] Carbon dioxide, total [Moles/volume] in Serum or Plasma 30 MEQ/L 22 - 30 [facility] Glucose [Mass/volume] in Serum or Plasma 111 MG/DL 65 - [address] [facility] BUN 11 MG/DL 7 - 21 [facility] Creatinine [Mass/volume] in Serum or Plasma 0.9 MG/DL 0.7 - 1.5 [facility] BUN/CREAT 12 8 - 27 [facility] Calcium [Mass/volume] in Serum or Plasma 9.2 MG/DL 8.4 - 10.2 [facility] Anion gap 3 in Serum or Plasma 7.0 mmol/L 8.0 - 16.[address] [facility] AGE 69 [facility]rs [facility] AMER GFR >60 [facility] NON-AA GFR >60 mL/min [facility] ital Male GFR Inter prentation 20-49 yrs >60 mL/min Normal 50-59 yrs >56 mL/min Normal 60-69 yrs >49 mL/min Normal 70-79yrs >42 mL/min Normal 80 and above >35 mL/min Normal Female GFR Interpretation 20-39 yrs >60 mL/min Normal 40-49 yrs >58 mL/min Normal 50-59 yrs >51 mL/min Normal 60-69 yrs >45 mL/min Normal 70-79 yrs >39 mL/min Normal 80 and above >32 mL/min Normal ID Date Data Source [id number] 05/08/2020 09:00:[address] [facility] Name Value Range Interpretation Code Description Data Theresa rce(s) Supporting Document(s) Thyroxine (T4) free index in Serum or Plasma by calculation 1.23 NG/DL 0.93 - 1.70 [facility] ID Date Data Source [id number] 05/08/2020 09:00:[address] [facility] Name Value Range Interpretation Code Description Data Theresa rce(s) Supporting Document(s) Thyrotropin [Units/volume] in Serum or Plasma by Detec tion limit <= 0.05 mIU/L 0.47 uIU/mL 0.47 - 5.01 [facility] ID Date Data Source [id number] 05/08/2020 07:53:[address] [facility] Name Value Range Interpretation Code Description Data Theresa rce(s) Supporting Document(s) COMPREHENSIVE METABOLIC PANEL [facility] COMPREHENSIVE METABOLIC PANEL Sodium [Moles/volume] in Serum or Plasma 140 mEq/L 134 - 153 [facility] Potassium [Moles/volume] in Serum or Plasma 3.9 mEq/L 3.6 - 5.0 [facility] Chloride [Moles/volume] in Serum or Plasma 100 mEq/L 98 - 107 [facility] Carbon dioxide, total [Moles/volume] in Serum or Plasma 27 MEQ/L 22 - 30 [facility] Glucose [Mass/volume] in Serum or Plasma 178 MG/DL 65 - [address] [facility] BUN 10 MG/DL 7 - 21 [facility] Creatinine [Mass/volume] in Serum or Plasma 1.0 MG/DL 0.7 - 1.5 [facility] BUN/CREAT 10 8 - 27 [facility] Protein [Mass/volume] in Serum or Plasma 5.7 G/DL 6.3 - 8.[address] [facility] Albumin [Mass/volume] in Serum or Plasma 3.9 G/DL 3.9 - 5.0 [facility] Globulin [Mass/volume] in Serum by calculation 1.8 GM/DL 2.4 - 3.[address] [facility] A/G RATIO 2.2 0.8 - 2.0 H [facility] Calcium [Mass/volume] in Serum or Plasma 9.7 MG/DL 8.4 - 10.2 [facility] Bilirubin.total [Mass/volume] in Serum or Plasma <0.7 MG/DL 0.2 - 1.3 [facility] Alkaline phosphatase [Enzymatic activity/volume] in Serum or Plasma 100 U/L 38 - 126 [facility] Aspartate aminotransferase [Enzymatic activity/volume] in Serum or Plasma 20 U/L 5 - 40 [facility] Alanine aminotransferase [Enzymatic activity/volume] in Seru m or Plasma 20 U/L 7 - 56 [facility] Anion gap 3 in Serum or Plasma 13.0 mmol/L 8.0 - 16.0 [facility] AGE 69 yrs [facility] al NON-AA GFR 58 mL/min [facility] AFR AMER GFR >60 [facility] Male GFR In terprentation 20-49 yrs >60 mL/min Normal 50-59 yrs >56 mL/min Normal 60-69 yrs >49 mL/min Normal 70-79yrs >42 mL/min Normal 80 and above >35 mL/min Normal Female GFR Interpretation 20-39 yrs >60 mL/min Normal 40-49 yrs >58 mL/min Normal 50-59 yrs >51 mL/min Normal 60-69 yrs >45 mL/min Normal 70-79 yrs >39 mL/min Normal 80 and above >32 mL/min Normal ID Date Data Source [id number] 05/08/2020 07:21:[address] [facility] Name Value Range Interpretation Code Description Data Theresa rce(s) Supporting Document(s) CBC W/AUTOMATED DIFF [facility] COMPLETE BLOOD COUNT Leukocytes [#/volume] in Blood by Automated count 9.6 10^3/uL 4.2 - [address] [facility] Erythrocytes [#/volume] in Blood by Automated count 3.35 10^6/uL 4. 20 - 5.[address] [facility] Hemoglobin [Mass/volume] in Blood 11.9 g/dL 12.0 - 16.[address] [facility] Hematocrit [Volume Fraction] of Blood by Automated count 37.0 % 3 7.0 - 47.0 [facility] Erythrocyte mean corpuscular volume [Entitic volume] b y Automated count 110.4 fL 81.0 - [address] [facility] Erythrocyte mean corpuscular hemoglobin [Entitic mass] by Automated count 35.5 pg 27.0 - 34.[address] [facility] Erythrocyte mean corpuscular hemoglobin concentration [Mass/volume] by Automated count 32.2 g/dL 31.0 - 36.0 [facility] Erythrocyte distribution width [Ratio] by Automated count 15.5 % 11.5 - 14.[address] [facility] Platelets [#/volume] in Blood by Automated count 617 10^3/uL 150 - [address] [facility] Platelet mean volume [Entitic volume] in Blood by Automated count 9.2 fL 7.4 - 10.4 [facility] Neutrophils/100 leukocytes in Blood by Automated count 78.3 % 37. 0 - 80.0 [facility] Lymphocytes/100 leukocytes in Blood by Manual count 10.9 % 25.0 - 40.[address] [facility] Monocytes/100 leukocytes in Blood by Automated count 8.5 % 3.0 - 8.[address] [facility] Eosinophils/100 leukocytes in Blood by Automated count 0.0 % 0.0 - 7.0 [facility] Basophils/100 leukocytes in Blood by Automated count 0.3 % 0.0 - 2.5 [facility] %IG 2.0 % 0.0 - 0.0 [facility] 0.0 % 0.0 - 0.0 [facility] al Neutrophils [#/volume] in Blood by Automated count 7.55 10^3/uL 2.00 - 6.[address] [facility] Lymphocytes [#/volume] in Blood by Automated count 1.05 10^3/uL 0.60 - 3.40 [facility] Monocytes [#/volume] in Blood by Automated count 0.82 10^3/uL 0.00 - 0.90 [facility] Eosinophils [#/volume] in Blood by Automated count 0.00 10^3/uL 0.00 - 0.70 [facility] Basophils [#/volume] in Blood by Automated count 0.03 10^3/uL 0.00 - 0.20 [facility] #IG 0.19 10^3/uL 0.00 - 0.10 [facility] #NRBC 0.00 10^3/uL 0.00 - 0.00 [facility] MANUAL DIFF NOT INDICATED [facility] RBC MORPH NOT INDICATED [facility] spital ID Date Data Source [id number] 05/08/2020 03:09:[address] [facility] Name Value Range Interpretation Code Description Data Theresa rce(s) Supporting Document(s) Potassium [Moles/volume] in Serum or Plasma 4.0 mEq/L 3.6 - 5.0 [facility] ID Date Data Source [id number] 05/08/2020 03:09:[address] [facility] Name Value Range Interpretation Code Description Data Theresa rce(s) Supporting Document(s) Magnesium [Mass/volume] in Serum or Plasma 1.9 MG/DL 1.7 - 2.2 [facility] ID Date Data Source [id number] 05/07/2020 08:52:[address] [facility] [address] [facility] Emergency Department [address] [place] [address] Phone #: ext- [phone] 05/07/2020 08:49 Patient: BRITNEY JUAREZ Sex: F : 1950 Age: 69yWEIGHT:75.2 kg (S) HEIGHT:62 inches (S) BMI:30.4ALLERGIES: Ambien, Fenofibrate, Lunesta, NSAIDs, TramadolCHIEF COMPLAINT: diarrhea, abdominal cramps, abdominal pain, nauseaDIAGNOSIS: Diarrhea, Hyperglycemia, Essential thrombocythemia, Abdominal painLAB ORDERSOrder Description Priority Entered Acknowledged InitialedCBC w Diff STAT 09:30 05/07/2020 09:32 [facility] [place] ER Physician; [id number] STAT 09:30 05/07/2020 09:32 [facility] [place] ER Physician; [id number] STAT 09:30 05/07/2020 09:32 [facility] [place] ER Physician; [id number] (Clean STAT 09:30 05/07/2020 12:44 [facility] [place] [facility] Physician; [id number] STAT 09:30 05/07/2020 09:32 [facility] [place] ER Physician; Te ch1GI 4 Panel 09:31 05/07/2020 Kendrick Nickerson Physician;DIAGNOSTIC STUDY ORDERSOrder Description Priority Entered Acknowledged InitialedCT Abd PEL W/ IV STAT 09:30 05/07/2020 09:39 DorisContrast Only Kendrick Montiel RN(Oxygen?(No)) Physician;(IV?(Yes)) Reason for Study: Abdominal Pain, DiarrheaMEDICATION/IV/DRIP/FLUID ORDERSOrder Description Priority Entered Acknowledged InitialedIV RL : 200 mL/hr 09:32 05/07/2020 09:40 Ching Montiel RN [address] [facility] Emergency Department [address] [place] [address] Phone #: ext- [phone] 05/07/2020 08:49 Patient: BRITNEY JUAREZ Sex: F : 1950 Age: 69y Physician;Zofran 4 mg IVP X 1 12:55 05/07/2020 Ack'd: 12:55 13:03 Altagracia,dose: 4 mg (Mariah Villafuerte Lynnette Lynnette R.N.x1) R.NArnold; Written order R.NArnold per; Kendrick Nickerson PhysicianGENERAL ORDERSOrder Description Priority Entered Acknowledged InitialedEKG 09:30 05/07/2020 09:32 Myles Nickerson carbon brusher assemblerManas Helms Physician; Tech1[Electronically signed by Mariah Frias R.N. (13:30 10/2019)][Electronically signed by Kendrick Nickerson Physician (16:14 05/07/2020)][Electronically locked by Mariah Frias R.N. (13:30 05/07/2020)] Name Value Range Interpretation Code Description Data Theresa rce(s) Supporting Document(s) ID Date Data Source [id number] 05/07/2020 08:52:[address] [facility] [address] [facility] Emergency Department [address] [place] [address] Phone #: ext- [phone] 05/07/2020 08:49 Patient: BRITNEY JUAREZ Sex: F : 1950 Age: 69yWeight: 75.2 kgHeight/Length: 62 in.BMI: 30.4ALLERGIES: Ambien, Fenofibrate, Lunesta, NSAIDs, TramadolThe patient's Home Medications are listed below:THE FOLLOWING MEDICATIONS NEED TO BE RECONCILED: Atorvastatin Calcium Oral (10 mg) 1 tablet, daily, at bedtime Metoprolol Tartrate Oral (100 mg) 1 tablet, daily Tension Headache Oral (500-65 mg) 2 tablets, prn traZODone HCl Oral 50 mg, daily, at bedtime Zofran ODT OralThe source(s) of the original Home Medication information:Not obtained.The following Medications were given to the patient in the Emergency Department:IV RL IV Fluids bolus 0, then 200 mL/hr, administered: 05/07/2020 9:19:00 AMZofran [IVP] IVP 4 mg, administered: 05/07/2020 1:02:00 PMThe following Medications were prescribed to the patient:None. Name Value Range Interpretation Code Description Data Theresa rce(s) Supporting Document(s) ID Date Data Source [id number] 05/07/2020 08:52:00 AM EDT [place] [address] [facility] Emergency Department [address] [place] [address] Phone #: ext- [phone] 05/07/2020 08:49 Patient: BRITNEY JUAREZ Sex: F : 1950 Age: 69yWeight: 75.2 kgHeight/Length: 62 inBMI: 30.4ALLERGIES: Ambien, Fenofibrate, Lunesta, NSAIDs, Tramadol Date/Time Medication Administered Medication OrderedStart IV RL IV RL : 200 mL/hr09:19 05/07/2020 Dose: IV FluidsDoris ALLI Montiel Rate: 200 mL/hr over 5 hour(s)---- Dispensed: 1000 mL bagStop Site: #1 left AC13:15 05/07/2020Mariah Frias RArnoldNArnoldGiven ZOFRAN [IVP] (ONDANSETRON HCL) Zofran 4 mg IVP X 1 dose: 4 mg13:02 05/07/2020 Dose: 4 mg IVP (NOW x1)Mariah Frias R.NArnold Site: #1 left AC Name Value Range Interpretation Code Description Data Theresa rce(s) Supporting Document(s) ID Date Data Source [id number] 05/07/2020 08:52:[address] [facility] [address] [facility] Emergency Department [address] [place] [address] Phone #: ext- [phone] 05/07/2020 08:49 Patient: BRITNEY JUAREZ Sex: F : 1950 Age: 69yDiarrheaLeft lower quadrant abdominal pain.Primary (essential) thrombocytosis.Mild hyperglycemia. ADDITIONAL INFORMATIONDiarrhea with Uncertain Cause (Adult)Diarrhea is when stools are loose and watery. This can be caused by: Viral infections [address] [facility] Emergency Department [address] [place] [address] Phone #: ext- [phone] 05/07/2020 08:49 Patient: BRITNEY JUAREZ Sex: F : 1950 Age: 69y Bacterial infections Food poisoning Parasites Irritable bowel syndrome (IBS) Inflammatory bowel diseases such as ulcerative colitis, Crohn's disease, and celiac disease Food intolerance, such as to lactose, the sugar found in milk and milk products Reaction to medicines like antibiotics, laxatives, cancer drugs, and antacidsAlong with diarrhea, you may also have: Abdominal pain and cramping Nausea and vomiting Loss of bowel control Fever and chills Bloody stoolsIn some cases, antibiotics may help to treat diarrhea. You may have a stool sample test. This is doneto see what is causing your diarrhea, and if antibiotics will help treat it. The results of a stool sampletest may take up to 2 days. The healthcare provider may not give you antibiotics until he or she hasthe stool test results.Diarrhea can cause dehydration. This is the loss of too much water and other fluids from the body.When this occurs, body fluid must be replaced. This can be done with oral rehydration solutions. Oralrehydration solutions are available at drugstores and grocery stores without a prescription. Sportsdrinks are not the best choice if you are very dehydrated. They have too much sugar and not enoughelectrolytes.Home careFollow all instructions given by your healthcare ivan clemens. Rest at home for the next 24 hours, or untilyou feel better. Avoid caffeine, tobacco, and alcohol. These can make diarrhea, cramping, and painworse.If taking medicines: Xixs-cmh-pbneasm nausea and diarrhea medicines are generally OK unless you experience fever or blood stool. Check with your doctor first in those circumstances. You may use acetaminophen or NSAID medicines like ibuprofen or naproxen to reduce pain [address] [facility] Emergency Department [address] [place] [address] Phone #: ext- [phone] 05/07/2020 08:49 Patient: BRITNEY JUAREZ Sex: F : 1950 Age: 69y and fever. Don't use these if you have chronic liver or kidney disease, or ever had a stomach ulcer or gastrointestinal bleeding. Don't use NSAID medicines if you are already taking one for another condition (like arthritis) or are on daily aspirin therapy (such as for heart disease or after a stroke). Talk with your healthcare provider first. If antibiotics were prescribed, be sure you take them until they are finished. Don't stop taking them even when you feel better. Antibiotics must be taken as a full course.To prevent the spread of illness: Remember that washing with soap and water and using alcohol-based sheet rock applicator is the best way to prevent the spread of infection. Dry your hands with a single use towel (like a paper towel). Clean the toilet after each use. Wash your hands before eating. Wash your hands before and after preparing food. Keep in mind that people with diarrhea or vomiting should not prepare food for others. Wash your hands after using cutting boards, countertops, and knives that have been in contact with raw foods. Wash and then peel fruits and vegetables. Keep uncooked meats away from cooked and qzucd-wx-vmt foods. Use a food thermometer when cooking. Cook poultry to at least 165F (74C). Cook ground meat (beef, veal, pork, fontaine) to at least 160F (71C). Cook fresh beef, veal, fontaine, and pork to at least 145F (63C). Don't eat raw or undercooked eggs (poached or elliott side up), poultry, meat, or unpasteurized milk and juices.Food and drinksThe main goal while treating vomiting or diarrhea is to prevent dehydration. This is done by takingsmall amounts of liquids often. Keep in mind that liquids are more important than food right now. Drink only small amounts of liquids at a time. Don't force yourself to eat, especially if you are having cramping, vomiting, or diarrhea. Don't eat large amounts at a time, even if you are hungry. If you eat, avoid fatty, greasy, spicy, or fried foods. [address] [facility] Emergency Department [address] [place] [address] Phone #: ext- [phone] 05/07/2020 08:49 Patient: BRITNEY JUAREZ Sex: F : 1950 Age: 69y Don't eat dairy foods or drink milk if you have diarrhea. These can make diarrhea worse.During the first 24 hours you can try: Oral rehydration solutions. Sports drinks may be used if you are not too dehydrated and are otherwise healthy. Soft drinks without caffeine Robert berta Water (plain or flavored) Decaf tea or coffee Clear broth, consomm, or bouillon Gelatin, popsicles, or frozen fruit juice barsThe second 24 hours, if you are feeling better, you can add: Hot cereal, plain toast, bread, rolls, or cracke rs Plain noodles, rice, mashed potatoes, chicken noodle soup, or rice soup Unsweetened canned fruit (no pineapple) BananasAs you recover: Limit fat intake to less than 15 grams per day. Don't eat margarine, butter, oils, mayonnaise, sauces, gravies, fried foods, peanut butter, meat, poultry, or fish. Limit fiber. Don't eat raw or cooked vegetables, fresh fruits except bananas, or bran cereals. Limit caffeine and chocolate. Limit dairy. Don't use spices or seasonings except salt. Go back to your normal diet over time, as you feel better and your symptoms improve. If the symptoms come back, go back to a simple diet or clear liquids.Follow-up careFollow up with your healthcare provider, or as advised. If a stool sample was taken or cultures weredone, call the healthcare provider for the results as instructed. [address] [facility] Emergency Department [address] [place] [address] Phone #: kpf- [phone] 05/07/2020 08:49 Patient: BRITNEY JUAREZ Sex: F : 1950 Age: 69yCall 911Call 911 if you have any of these symptoms: Trouble breathing Confusion Extreme drowsiness or trouble walking Loss of consciousness Rapid heart rate Chest pain Stiff neck SeizureWhen to seek medical adviceCall your healthcare provider right away if any of these occur: Abdominal pain that gets worse Constant lower right abdominal pain Continued vomiting and inability to keep liquids down Diarrhea more than 5 times a day Blood in vomit or stool Dark urine or no urine for 8 hours, dry mouth and tongue, tiredness, weakness, or dizziness Drowsiness New rash You don't get better in 2 to 3 days Fever of 100.4F (38C) or higher, or as directed by your healthcare provider [id number] [employer]. [address] [place] [address], [place] [address]. All rights reserved. This information is not intended as asubstitute for professional medical care. Always follow your healthcare professional's instructions. You have been given the following additional information: Diarrhea, Unknown Cause [address] [facility] Emergency Department [address] [place] [address] Phone #: ext- [phone] 05/07/2020 08:49 Patient: BRITNEY JUAREZ Sex: F : 1950 Age: 69y(Electronically signed by Kendrick Nickerson, Physician 05/07/2020 16:14) Name Value Range Interpretation Code Description Data Theresa rce(s) Supporting Document(s) ID Date Data Source [id number] 05/07/2020 08:52:[address] [facility] 1 Clinical Report - Nurses [facility] Emergency Department [address] [place] [address] Phone #: ext- [phone] 05/07/2020 08:49 Patient: BRITNEY JUAREZ Sex: F : 1950 Age: 69yTRIAGEArrived by EMS. Historian: patient.Triage time: 08:53 05/07/2020. Acuity: LEVEL 4.Chief Complaint: ABDOMINAL PAIN and DIARRHEA.08:53 05/07/20. Alert. No acute distress.Onset. (04/29). ( Was inpatient [facility] for Gastroenteritis finished course of Cipro/Flagyl, discharged 04/29diarrhea has continued, taking Excedrin for abdominal pain with relief.). She has had nausea (occasionalnausea, no vomiting). She has had diarrhea (3-4 times per day, last episode today 0600,). It has beenwatery. She has had abdominal pain (occasional cramping before episode of diarrhea). The pain isdescribed as located in the lower abdomen. 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 Sepsis Screen negative. No suspected or confirmed signs ofinfection present. --09:03 05/07/20 Ching Montiel RN08:53 05/07/20. BP: 168/95. MAP: 119. HR: 108. RR: 18. O2 saturation: 100%. Temp: 98.2 F. Pain levelnow: 5/10. Describes the quality as aching. It has been intermittent. Pain level at maximum: 5/10. Noradiation noted. (aching/cramping prior to diarrhea). --09:03 05/07/20 Ching Montiel RN( Inpatient 04/22-04/29 [facility]). She has had nausea (this am). --09:06 05/07/20 Ching Montiel RN.Weight: 75.2 kg stated. Height/Length: 62 inches Per Patient. BMI: 30.4. --08:51 05/07/20 Ching Montiel RN .MedicationsAtorvastatin Calcium Oral (Tablet 10 mg) 1 tablet, daily at bedtime. Metoprolol Tartrate Oral (Tablet 100 mg) 1 tablet, daily. Tension Headache Oral (Tablet 500-65 mg) 2 tablets, as needed. traZODone HCl Oral 50 mg, daily at bedtime. Zofran ODT Oral. --09:02 05/07/20 Ching Montiel RNThe following entry was struck by Ching Montiel RN, 09:02 (05/07/20) Reason - wrong value. Takes something for her nerves does not know name. --09:02 05/07/20 Ching Montiel RN .AllergiesAmbien. (HALLUCINATIONS)Fenofibrate. (MAKES SKIN PEEL) 2 Clinical Report - Nurses [facility] Emergency Department [address] [place] [address] Phone #: ext- [phone] 05/07/2020 08:49 Patient: BRITNEY JUAREZ Sex: F : 1950 Age: 69yLunesta. (HALLUCINATIONS)NSAIDs.(itching)Tramadol. (HALLUCINATIONS) --09:02 05/07/20 Ching Montiel RN.PROBLEMS:Common Iliac Aneurysms, B/L.COPD - Chronic Obstructive Pulmonary Disease.Diverticulitis.Coronary Artery Disease.Aortic Aneurysm.Arthritis.Hypertension.Thrombocytopenia.Peptic Ulcer Disease.Gastroesophageal Reflux Disease.Heart Disease.Hyperlipidemia.Hyp ercholesterolemia. --09:03 05/07/20 Ching Montiel RN.ADDITIONAL SURGERIES:Aortic anuerysm stent placed.Bilateral Tubal Ligation.Cardiac Bypass.Cholecystectomy.L wrist fx repair.Right wrist fx repair.Sigmoid resection.Tonsillectomy Adenoidectomy. --09:03 05/07/20 Ching Montiel RN.Moneepu60:53 05/07/20.PAST MEDICAL HX: Immunizations: up-to-date.SOCIAL HX: Former smoker, end date 2013. No alcohol use. No recent travel. No known contact witha sick individual. She was offered HIV testing but declined.Infectious disease exposure: No infectious disease exposure. Has diarrhea. (Denies travel, denies contactwith PUI for COVID-19, neg COVID-19 screen). Patient is not a known carrier of tuberculosis, hepatitis,HIV, MRSA or VRE. Patient is not a known carrier of CRE.SELF HARM ASSESSMENT: Self harm assessment was performed. The patient answered "no" to thequestion(s) "Do you have thoughts of harming or killing yourself?" and "Have you recently had thoughtsabout harming or killing o thers?".ABUSE ASSESSMENT: Abuse assessment. The patient had positive responses to the question(s) "Do you 3 Clinical Report - Nurses [facility] Emergency Department [address] [place] [address] Phone #: ext- [phone] 05/07/2020 08:49 Patient: BRITNEY JUAREZ Sex: F : 1950 Age: 69y feel safe in your home?" (yes). Abuse denied. No suspicion of abuse. No report of abuse. NUTRITIONAL RISK ASSESSMENT: The nutritional risk assessment revealed no deficiencies. FUNCTIONAL ASSESSMENT: Functional assessment: no impairments noted. LEARNING NEEDS ASSESSMENT: The learning needs assessment revealed no barriers. FALL RISK ASSESSMENT: Fall risk assessment completed. Risk factors identified include patient age greater than 65 years. Fall interventions initiated. Patient placed on stretcher. Side rails up x2. Bed in low position. Brakes on. Patient identified as a fall risk by chart flagged. Call light in reach of patient. Instructed not to get up without assistance. Instructions given to patient including fall prevention information. Verbalizes understanding. SKIN INTEGRITY ASSESSMENT: Skin integrity risk assessment completed. No skin integrity risk identified. --09:03 05/07/20 Ching Montiel RN. FAMILY HX: Negative. --09:33 05/07/20 Physician Leona. Interventions 08:53 05/07/20. To treatment room. Transported via stretcher by EMS. Report given to the charge nurse. --09:03 05/07/20 Ching Montiel RN.PHYSICAL RERTCXMPMO92:00 05/07/20. To room via stretcher.GENERAL / NEURO / PSYCH: Alert. Oriented X 4. Appears in no acute distress.HEENT: Mucous membranes are pink.RESPIRATORY: Respirations not labored. Breath sounds within normal limits.CVS: Capillary refill less than 2 seconds.GI / : The patient has diarrhea (since midnight, last episode 0600). This has occurred twice. It has beenwatery. Abdomen soft. Abdominal tenderness in the lower abdomen. Bowel sounds within normallimits.SKIN: Skin is pale. Skin is warm and dry. --09:05 05/07/20 Ching Montiel RN.NURSING PROGRESS NOTES08:53 05/07/20. Monitoring of patient in place. Patient gowned. Head of bed elevated. Two patientidentifiers checked. Call light placed in reach. Side rails up x 2. Bed placed in lowest position. Brakesof bed on. Patient ready for evaluation- ED physician notified. --09:04 05/07/20 Ching Montiel RN 09:17 05/07/2020 Site #1 started via IV in the left antecubital space with an 20g angiocath, with aseptic technique and goo d blood return; one attempt. Blood drawn: rainbow set. Labeled in the presence of the patient and sent to the lab. Saline lock flushed with 10 mL saline. --09:24 05/07/20 Ching Montiel RN 09:19 05/07/2020 Started bag #1 1000 mL IV Fluids IV RL; at 200 mL/hr over 5 hour(s) via site #1 via IV 4 Clinical Report - Nurses [facility] Emergency Department [address] [place] [address] Phone #: ext- [phone] 05/07/2020 08:49 Patient: BRITNEY JUAREZ Sex: F : 1950 Age: 69ypump. Allergies verified and confirmed 5 rights. IV patency established. IV site checked: no pain, redness,or swelling. IV flushed thoroughly pre- and post- medication administration. Information reviewed withpatient including reason for taking this medication, signs of allergic reaction and precautions. Verbalizesunderstanding. Completed per protocol. --09:40 05/07/20 Ching Montiel RNEKG time: (late entry - 09:41 05/07/2020). EKG was performed by a tech and shown to the ED physician.--09:45 05/07/20 Siva Diaz, LINDA TechnicianThe patient reports no complaints and she is calm and resting quietly. Care t ransferred and reportreceived. ( awaiting stool specimen if patient able to provide.). --10:11 05/07/20 Mariah Frias R.N.10:22 05/07/20. Patient transported to [place] by wheelchair with arcade technician. --10:25 05/07/20 Klaus Ochoa returned from CT by wheelchair with arcade technician. --10:34 05/07/20 Mariah Frias R.N.11:29 05/07/20. The patient reports no complaints and she is calm, resting quietly and sleeping. --12: Mariah Frias R.N.( telegraphic typewriter operator chief to bedside and assisted pt to commode and educate patient on specimen collection of urine andstool. call light given to patient. pt verbalizes understanding.). --12:30 05/07/20 Mariah Frias R.N.Patient ID band checked for patient name: family confirmed. Instructions provided to collect clean catchurine and patient verbalized understanding. Clean catch urine collected with return of yellow-colored clearurine; sample sent to lab for urinalysis. Specimen labeled in the presence of the patient. --12:45 05/07/20[facility]( Patient unable to provide stool sample at this time). --12:46 05/07/20 [facility], Glda546:02 05/07/2020 Zofran (Ondansetron HCl) IVP 4 mg given over 1 minute(s) via site #1. Allergies verifiedand confirmed 5 rights. IV patency established. IV site checked: no pain, redness, or swelling. IV flushedthoroughly pre- and post-medication administration. IVP given by RN. Information reviewed with patientincluding reason for taking this medication. Verbalizes understanding. --13:03 05/07/20 Mariah Frias R.N.13:03 05/07/2020 IV Fluids IV RL via IV site #1 Continued: at the rate of 200 mL/hr. 100 mL remaining bag#1. IV patency established. IV site checked: no pain, redness, or swelling. IV flushed thoroughly. --13: Mariah Frias R.N. Correction. --13:26 05/07/20 Mariah Frias R.N.The patient reports no complaints and she is calm and resting quietly. ( pt reported to arcade technician she wasnauseous. Pt given zofran 4mg. Pt has not had emesis at this time. Pt does have emesis bag and reportsimprovement. Pt resting quietly on stretcher. Pt aware of POC. Pt reports being glad she is staying inhospital at this time.). --13:06 05/07/20 Mariah Frias R.N. 5 Clinical Report - Nurses [facility] Emergency Department [address] [place] [address] Phone #: ext- [phone] 05/07/2020 08:49 Patient: BRITNEY JUAREZ Sex: F : 1950 Age: 69y 13:15 05/07/2020 Site #[address] upon admission; patent, no pain and no signs of infection or infiltration. Converted to saline lock. --13:27 05/07/20 Mariah Frias R.N. 13:15 05/07/2020 IV Fluids IV RL via IV site #1 Discontinued: bag #1 completed upon admission. Total amount infused: 980 mL. IV patency established. IV site checked: no pain, redness, or swelling. IV flushed thoroughly. --13:27 05/07/20 Mariah Frias R.N.DISPOSITION / DISCHARGE 13:18 05/07/20. Departure time: 13:18 05/07/2020. Condition at departure: stable. Admitted to the Acute Inpatient Unit. Transported via stretcher by nurse. Report was given to a nurse in person and via visit overview. Report included information regarding patient's care, treatment and condition, current vital signs and labs. Report included treatment information regarding medications given or pending and home medications; type and amount of IV fluids and medications infusing and total volume infused. All questions were answered. Report was acknowledged and care was transferred. (Afua Hill RN). Bed obtained and ready. Patient's personal items include, pt purse and purple shirt taken down and placed in bedside drawers per request. Pt wearing her glasses/pants. --13:29 05/07/20 Mariah Frias R.N. 13:04 05/07/2020 BP: 171/67. HR: 99. RR: 19. O2 saturation: 99%. Temp: 98.6 F. Pain level now 11/16. --13:30 05/07/20 Mariah Frias R.N.Locked/Released at 05/07/2020 13:30 by Mariah Frias R.N. Name Value Range Interpretation Code Description Data Theresa rce(s) Supporting Document(s) ID Date Data Source [id number] 05/07/2020 08:52:[address] [facility] 1 Clinical Report - Physicians/Mid Levels [facility] Emergency Department [address] [place] [address] Phone #: ext- [phone] 05/07/2020 08:49 Patient: BRITNEY JUAREZ Sex: F : 1950 Age: 69y Time Seen: 09:03 05/07/2020. Arrived- By ambulance. Historian- patient. Disposition decision: 12:09 05/07/2020.HISTORY OF PRESENT ILLNESS Chief Complaint: DIARRHEA. ABDOMINAL CRAMPS, ABDOMINAL PAIN and NAUSEA. No recent travel. She has had nausea and abdominal pain. The pain is described as located in the LLQ. No vomiting, black stools, bloody stools, constipation or flank pain. No history of possible bad food exposure, known contact with a sick indivi dual or change in routine. She has had moderate, intermittent loose stools. This has occurred numerous times. It has been watery and has been associated with cramps. Has recently been on antibiotics but not recently been camping. This started 2 weeks ago and is still present. The illness is described as severe. Similar symptoms previously. Patient has had similar symptoms once. As bad from previously. Recent medical care: The patient was seen recently and hospitalized. ( Discharged 6 days ago with gastroenteritis).REVIEW OF SYSTEMSNo fever, muscle aches, difficulty with urination, dark urine or abnormal bleeding. No headache,dizziness, sore throat, cough or chest pain. No difficulty breathing, excessive urination, skin rash, jaundiceor back pain. No fainting episodes or blurred vision. Patient feels very weak.PAST HISTORYSee nurses notes. Problems: Dehydration. Gastritis. Nausea. Gastroenteritis. Common Iliac Aneurysms, B/L. COPD - Chronic Obstructive Pulmonary Disease. Diverticulitis. Coronary Artery Disease. Aortic Aneurysm. Arthritis. Hypertension. Thrombocytopenia. Peptic Ulcer Disease. Gastroesophageal Reflux Disease. 2 Clinical Report - Physicians/Mid Levels [facility] Department [address] [place] [address] Phone #: ext- [phone] 05/07/2020 08:49 Patient: BRITNEY JUAREZ Sex: F : 1950 Age: 69y Heart Disease. Hyperlipidemia. Hypercholesterolemia. Diarrhea. Abdominal Pain. Additional Surgeries: Aortic anuerysm stent placed. Bilateral Tubal Ligation. Cardiac Bypass. Cholecystectomy. L wrist fx repair. Right wrist fx repair. Sigmoid resection. Tonsillectomy Adenoidectomy. Medications: Atorvastatin Calcium Oral (Tablet 10 mg) 1 tablet, daily at bedtime. Metoprolol Tartrate Oral (Tablet 100 mg) 1 tablet, daily. Tension Headache Oral (Tablet 500-65 mg) 2 tablets, as needed. traZODone HCl Oral 50 mg, daily at bedtime. Zofran ODT Oral. Allergies: Ambien. (HALLUCINATIONS) Fenofibrate. (MAKES SKIN PEEL) Lunesta. (HALLUCINATIONS) NSAIDs.(itching) Tramadol. (HALLUCINATIONS).SOCIAL HISTORYNever smoker. No alcohol use or drug use. No recent travel. Has good social support.FAMILY HISTORYNegative.ADDITIONAL NOTESThe nursing notes have been reviewed with agreement regarding the chief complaint, HPI, ROS, PMH andpatient medications and allergies.PHYSICAL EXAMVital Signs: 05/07/2020 08:53 BP: 168/95. MAP: 119. HR: 108. RR: 18. O2 saturation: 100%. Temp: 98.2F. Pain level now: 02/13. Have been reviewed as abnormal. Hypertensive. Heart rate normal.Respiratory rate normal. Temperature normal. Oxygen saturation normal.Appearance: Alert. Oriented X3. Patient in moderate distress. 3 Clinical Report - Physicians/Mid Levels [facility] Emergency Department [address] [place] [address] Phone #: ext- [phone] 05/07/2020 08:49 Patient: BRITNEY JUAREZ Sex: F : 1950 Age: 69y Eyes: Pupils equal, round and reactive to light. Eyes normal inspection. ENT: Ears normal. Nose normal. Dry mucous membranes present. Pharynx normal. Neck: Normal inspection. Neck supple. CVS: Normal heart rhythm and rate. Heart sounds normal. Pulses normal. Respiratory: No respiratory distress. Painless inspiration. Breath sounds normal. Abdomen: Soft. Tenderness in the left lower quadrant. Bowel sounds normal. No organomegaly. No mass. Femoral pulses equal. Back: Normal inspection. Skin: Skin warm and dry. Pallor. No rash. Normal skin turgor. Extremities: Extremities exhibit normal ROM. No lower extremity edema. Neuro: Oriented X 3. No motor deficit. No sensory deficit.LABS, X-RAYS, AND EKGEKG: EKG time: 09:41 05/07/2020. Normal sinus rhythm. Rate: 100. Occasional ectopic beats.Premature atrial contractions. Normal P waves. Normal YVONNE. Normal QRS complex. Q waves in leadV1. Decreased QRS voltage in the limb leads. Normal axis. The study has been interpretedcontemporaneously by me. Artifact present. I agree with and confirm the computer reading of the EKG.Interpretation time: 09:45 05/07/2020.Laboratory Tests: Laboratory tests have been ordered, with results reviewed and considered in themedical decision making process. CBC w Diff: (MINDY: 05/07/2020 09:17) ( [facility] 05/07[facility] 09:42) Final results Test Result Flag Units (Reference) CBC W/AUTOMATED DIFF COMPLETE BLOOD COUNT WBC 9.7 10/uL (4.2 - 11.0) RBC 3.83 L 10/uL (4.20 - 5.40) HEMOGLOBIN 13.8 g/dL (12.0 - 16.0) HEMATOCRIT 41.6 % (37.0 - 47.0) MCV 108.6 H fL (81.0 - 101) MCH 36.0 H pg (27.0 - 34.0) MCHC 33.2 g/dL (31.0 - 36.0) RDW 15.5 H % (11.5 - 14.5) PLATELETS 704 H 10/uL (150 - 450) MPV 9.1 fL (7.4 - 10.4) NEUT 85.8 H % (37.0 - 80.0) LYMPH 6.1 L % (25.0 - 40.0) MONO 5.9 % (3.0 - 8.0) EOS 0.1 % (0.0 - 7.0) BASO 0.6 % (0.0 - 2.5) %IG 1.5 H % (0.0 - 0.0) %NRBC 0.0 % (0.0 - 0.0) #NEUT 8.30 H 10/uL (2.00 - 6.90) #LYMPH 0.59 L 10/uL (0.60 - 3.40) #MONO 0.57 10/uL (0.00 - 0.90) #EOS 0.01 10/uL (0.00 - 0.70) #BASO 0.06 10/uL (0.00 - 0.20) #IG 0.15 H 10/uL (0.00 - 0.10) #NRBC 0.00 10/uL (0.00 - 0.00) MANUAL DIFF NOT INDICATED RBC MORPH NOT INDICATED CMP: (MINDY: 05/07/2020 09:17) ( [facility] 05/07/2020 10:10) Final results 4 Clinical Report - Physicians/Mid Levels [facility] Emergency Department [address] [place] [address] Phone #: ext- [phone] 05/07/2020 08:49 Patient: BRITNEY JUAREZ Sex: F : 1950 Age: 69y Test Result Flag Units (Reference) COMPREHENSIVE METABOLIC PANEL COMPREHENSIVE METABOLIC PANEL SODIUM 140 mEq/L (134 - 153) POTASSIUM 3.7 mEq/L (3.6 - 5.0) CHLORIDE 101 mEq/L (98 - 107) CO2 22 MEQ/L (22 - 30) GLUCOSE 183 H MG/DL (65 - 110) BUN 15 MG/DL (7 - 21) CREATININE 1.1 MG/DL (0.7 - 1.5) BUN/CREAT 14 (8 - 27) TOTAL PROTEIN 6.5 G/DL (6.3 - 8.2) ALBUMIN 4.2 G/DL (3.9 - 5.0) GLOBULIN 2.3 L GM/DL (2.4 - 3.2) A/G RATIO 1.8 (0.8 - 2.0) CALCIUM 9.6 MG/DL (8.4 - 10.2) TOTAL BILI <0.7 MG/DL (0.2 - 1.3) ALKALINE PHOS 116 U/L (38 - 126) SGOT/AST 21 U/L (5 - 40) SGPT/ALT 25 U/L (7 - 56) ANION GAP 17.0 H mmol/L (8.0 - 16.0) AGE 69 yrs NON-AA GFR 52 mL/min AFR AMER GFR >60 Male GFR Interprentation 20-49 yrs >60 mL/min Cilkjz88-25 yrs >56 mL/min Normal 60-69 yrs >49 mL/min Normal 70-79yrs>42 mL/min Normal 80 and above >35 mL/min Normal Female GFRInterpretation 20-39 yrs >60 mL/min Normal 40-49 yrs >58 mL/minNormal 50-59 yrs >51 mL/min Normal 60-69 yrs >45 mL/min Kkbolg96-57 yrs >39 mL/min Normal 80 and above >32 mL/min NormalPT/PTT: (MINDY: 05/07/2020 09:17) ( [facility] 05/07/2020 09:55) Final results Test Result Flag Units (Reference) PROTIME 13.5 SECONDS (11.0 - 15.5) INR 1.02 (0.93 - 1.23) PTT 27.4 SECONDS (24.8 - 36.7) \\BLDo\\INR INTERPRETATION\\BLDx\\ Therapeutic range for Coumadin andrelated oral anticoagulants. -International Normalized Ratio (INR): 2.0 - 3.0 for VenousThrombosis, Pulmonary Embolus, Tissue heart valves, Acute DE Atrial Fibrillation, Valvular heart diseaseand recurrent Systemic Embolism. -International Normalized Ratio (INR): 2.5 - 3.5 forMechanical Prosthetic valve.Troponin-T: (MINDY: 05/07/2020 09:17) ( [facility] 05/07/2020 10:10) Final results Test Result Flag Units (Reference) TROPONIN T <0.01 NG/ML (0.00 - 0.10) TROPONIN T0.1 ng/ml Recommended as the clinical threshold value forTroponin T.CT Abd PEL W/ IV Contrast Only: (MINDY: 05/07/2020 09:30) ( [facility] 05/07/2020 11:11) In ProgressCT ABDReason(s): Abdominal PainTRANSPORTATION: WC IV? IV?(Yes) O2? Oxygen?(No) Ro Exam CT ABD //T// PELVIS W/ IV ONLY 5 Clinical Report - Physicians/Mid Levels [facility] Emergency Department [address] [place] [address] Phone #: ext- [phone] 05/07/2020 08:49 Patient: BRITNEY JUAREZ Sex: F : 1950 Age: 69y [facility] [address] [place] [address] PHONE: [phone] FAX: [phone] Name .......... ........ : BISMARK Thomson Acct Number.................. : [id number] ROOM. ................. : TR-05 MR Number ................... : [id number] Stay type ............. : E/R Discharge Date......... ... : Admit Date ......... : 05/07/20 Admit Phys .................... : MARYCHUY PA Date of ....... : 1950 Family Phys ................... : CHARLTONHY Phone .................. : [phone] Age ................................ : 69 Film# .................. .:[id number] Sex ................................. : F Unsigned transcriptions are preliminary reports and do not represent a medical or legal document CT ABD Reason(s): Abdominal Pain Diarrhea CT OF THE ABDOMEN AND PELVIS WITH CONTRAST: HISTORY: Abdominal pain. COMPARISON: Prior study dated 04/27/20. FINDINGS: The lung bases are clear. There is no pleural or pericardial effusion noted. The liver is unremarkable. There is an ill-defined region of hypodensity noted within the liver. Findings are nonspecific. MRI may be performed for further evaluation. The patient is status post cholecystectomy. There are bilateral adrenal nodules noted. Adrenal cortical imaging may be performed for further evaluation. There is a large 5 cm cyst noted within the left kidney. There are subcentimeter hypodensities noted within the right kidney which are too small to further characterize. The spleen and the pancreas are unremarkable. There is scattered atherosclerotic disease noted. There are metallic coils noted within the right internal iliac artery. There are bilateral stents noted in the common iliac arteries. The bladder is partially collapsed, limiting evaluation. The uterus and adnexa are unremarkable. There is no evidence of bowel obstruction. There is no bowel wall thickening noted. The appendix is visualized and is unremarkable. The visualized bony structures are unremarkable. There is loss of intervertebral space. There is no evidence of abnormal adenopathy. The visualized bony structures demonstrate degenerative changes. There is a stable ventral hernia containing mesenteric fat. IMPRESSION: Stable, chronic changes as described above. No evidence of acute intra-abdominal pathology. While performing the above CT examination, radiation dose reduction was accomplished utilizing automated exposure control, adjusting of the mA and kV based on the patient's body size and/or the use of imperative reconstructive techniques. CT dose: mGycm Page [address] [place] [address] PHONE: [phone] FAX: [phone] Name .................. : BISMARK Thomson Acct Number.................. : [id number] Clinical Report - Physicians/Mid Levels [facility] Emergency Department [address] [place] [address] Phone #: ext- [phone] 05/07/2020 08:49 Patient: BRITNEY JUAREZ Sex: F : 1950 Age: 69y ROOM. ................. : TR-05 MR Number ................... : [id number] Stay type ............. : E/R Discharge Date......... ... : Admit Date ......... : 05/07/20 Admit Phys .................... : MARYCHUY PA Date of ....... : 1950 Family Phys ................... : SMITH Phone .................. : [phone] Age ................................ : 69 Film# .................. .:[id number] Sex ................................. : F Unsigned transcriptions are preliminary reports and do not represent a medical or legal document CT ABD Reason(s): Abdominal Pain Diarrhea Contrast agent in mL: 75 Isovue 370 Method of administration: Intravenous Electronically Reviewed and Signed By DCTNAME , SIGNDATE, ASHOKS Transcribe In itials: ALETHEA , Transcribe Date: 05/07/20 11:02, Dictation Date: <<REPDIST>> Page 2 of 2.PROGRESS AND PROCEDURESCourse of Care: 10:13 May 07 2020. (Patient's history obtained and old inpatient record reviewed. Examcompleted. Treatment plan discussed and agreed with. Labs CT abdo/pelvis with IV contrast ordered. IVLR started.). 13:12 May 07 2020. (Patient developed nausea and vomited. Given Zofran 4 mg IV.). Discussed case with hospitalist, (Dr Whaley 12:08 May 07 2020). Reviewed test results and need for additional work-up. Agreed upon treatment plan and decision to place in observation. Health care provider will see patient in ED. Disposition: Condition: guarded.CLINICAL IMPRESSION Diarrhea Left lower quadrant abdominal pain. Primary (essential) thrombocytosis. 7 Clinical Report - Physicians/Mid Levels [facility] Emergency Department [address] [place] [address] Phone #: ext- [phone] 05/07/2020 08:49 Patient: BRITNEY JUAREZ Sex: F : 1950 Age: 69y Mild hyperglycemia.(Electronically signed by Kendrick Nickerson, Physician 05/07/2020 16:14) Name Value Range Interpretation Code Description Data Theresa rce(s) Supporting Document(s) ID Date Data Source [id number] 05/07/2020 01:14:[address] [facility] Name Value Range Interpretation Code Description Data Theresa rce(s) Supporting Document(s) URINALYSIS [facility] URINALYSIS SOURCE Clean Catch [facility] COLOR yellow NORMAL: Yellow [facility] CLARITY clear NORMAL: Clear [facility] Specific gravity of Urine by Test strip 1.015 1.001 - 1.030 [facility] pH 6.5 5 - 9 [facility] Glucose [Mass/volume] in Urine by Test strip NORM NORMAL: Negat [facility] Bilirubin.total [Presence] in Urine by Test strip NEG NORMAL: Negative [facility] Ketones [Presence] in Urine by Test strip NEG NORMAL: Negative [facility] Protein [Mass/volume] in Urine by Test strip 15 NORMAL: Negat [facility] Nitrite [Presence] in Urine by Test strip NEG NORMAL: Negative [facility] BLOOD NEG NORMAL: Negative [facility] Leukocyte esterase [Presence] in Urine by Test strip NEG BRITTANY L: Negative [facility] Urobilinogen [Mass/volume] in Urine by Test strip NOR less emil n 1.0 mg/dL [facility] MICROSCOPIC See Below [facility] ital WBC 0 - [address]: NONE SE[address] [facility] Erythrocytes [#/volume] in Urine by Test strip 0 - 1 NORMAL: NON E SEEN [facility] EPITHELIAL FEW NORMAL: NONE SEEN [facility] ID Date Data Source [id number] 05/07/2020 09:55:[address] [facility] Name Value Range Interpretation Code Description Data Theresa rce(s) Supporting Document(s) Prothrombin time (PT) 13.5 SECONDS 11.0 - 15.5 [facility] INR in Platelet poor plasma by Coagulation assay 1.02 0.93 - 1. 23 [facility] aPTT in Blood by Coagulation assay 27.4 SECONDS 24.8 - 36.7 [facility] \\BLDo\\INR INTERPRETATION\\BLDx\\ Therapeutic range for Coumadin and related oral anticoagulants. - International Normalized Ratio (INR): 2.0 - 3.0 for Venous Thrombosis, Pulmonary Embolus, Tissue heart valves, Acute DE Atrial Fibrillation, Valvular heart disease and recurrent Systemic Embolism. - International Normalized Ratio (INR): 2.5 - 3.5 for Mechanical Prosthetic valve. ID Date Data Source [id number] 05/07/2020 09:42:[address] [facility] Name Value Range Interpretation Code Description Data Theresa rce(s) Supporting Document(s) CBC W/AUTOMATED DIFF [facility] COMPLETE BLOOD COUNT Leukocytes [#/volume] in Blood by Automated count 9.7 10^3/uL 4.2 - [address] [facility] Erythrocytes [#/volume] in Blood by Automated count 3.83 10^6/uL 4. 20 - 5.[address] [facility] Hemoglobin [Mass/volume] in Blood 13.8 g/dL 12.0 - 16.0 [facility] Hematocrit [Volume Fraction] of Blood by Automated count 41.6 % 3 7.0 - 47.0 [facility] Erythrocyte mean corpuscular volume [Entitic volume] b y Automated count 108.6 fL 81.0 - [address] [facility] Erythrocyte mean corpuscular hemoglobin [Entitic mass] by Automated count 36.0 pg 27.0 - 34.[address] [facility] Erythrocyte mean corpuscular hemoglobin concentration [Mass/volume] by Automated count 33.2 g/dL 31.0 - 36.0 [facility] Erythrocyte distribution width [Ratio] by Automated count 15.5 % 11.5 - 14.[address] [facility] Platelets [#/volume] in Blood by Automated count 704 10^3/uL 150 - [address] [facility] Platelet mean volume [Entitic volume] in Blood by Automated count 9.1 fL 7.4 - 10.4 [facility] Neutrophils/100 leukocytes in Blood by Automated count 85.8 % 37. 0 - 80.[address] [facility] Lymphocytes/100 leukocytes in Blood by Manual count 6.1 % 25.0 - 40.[address] [facility] Monocytes/100 leukocytes in Blood by Automated count 5.9 % 3.0 - 8.0 [facility] Eosinophils/100 leukocytes in Blood by Automated count 0.1 % 0.0 - 7.0 [facility] Basophils/100 leukocytes in Blood by Automated count 0.6 % 0.0 - 2.5 [facility] %IG 1.5 % 0.0 - 0.0 H [facility] al %NRBC 0.0 % 0.0 - 0.0 [facility] al Neutrophils [#/volume] in Blood by Automated count 8.30 10^3/uL 2.00 - 6.[address] [facility] Lymphocytes [#/volume] in Blood by Automated count 0.59 10^3/uL 0.60 - 3.[address] [facility] Monocytes [#/volume] in Blood by Automated count 0.57 10^3/uL 0.00 - 0.90 [facility] Eosinophils [#/volume] in Blood by Automated count 0.01 10^3/uL 0.00 - 0.70 [facility] Basophils [#/volume] in Blood by Automated count 0.06 10^3/uL 0.00 - 0.20 [facility] #IG 0.15 10^3/uL 0.00 - 0.10 H [facility] ospital #NRBC 0.00 10^3/uL 0.00 - 0.00 [facility] MANUAL DIFF NOT INDICATED [facility] RBC MORPH NOT INDICATED [facility] ID Date Data Source [id number] 05/07/2020 10:10:[address] [facility] Name Value Range Interpretation Code Description Data Theresa rce(s) Supporting Document(s) TROPONIN T <0.01 NG/ML 0.00 - 0.10 [facility] TROPONIN T0.1 ng/ml Recommended as the c linical threshold value forTroponin T. ID Date Data Source [id number] 05/07/2020 10:09:[address] [facility] Name Value Range Interpretation Code Description Data [facility] Supporting Document(s) COMPREHENSIVE METABOLIC PANEL [facility] COMPREHENSIVE METABOLIC PANEL Sodium [Moles/volume] in Serum or Plasma 140 mEq/L 134 - 153 [facility] Potassium [Moles/volume] in Serum or Plasma 3.7 mEq/L 3.6 - 5.0 [facility] Chloride [Moles/volume] in Serum or Plasma 101 mEq/L 98 - 107 [facility] Carbon dioxide, total [Moles/volume] in Serum or Plasma 22 MEQ/L 22 - 30 [facility] Glucose [Mass/volume] in Serum or Plasma 183 MG/DL 65 - [address] [facility] BUN 15 MG/DL 7 - 21 [facility] Creatinine [Mass/volume] in Serum or Plasma 1.1 MG/DL 0.7 - 1.5 [facility] BUN/CREAT 14 8 - [address] [facility] Protein [Mass/volume] in Serum or Plasma 6.5 G/DL 6.3 - 8.2 [facility] Albumin [Mass/volume] in Serum or Plasma 4.2 G/DL 3.9 - 5.0 [facility] Globulin [Mass/volume] in Serum by calculation 2.3 GM/DL 2.4 - 3.[address] [facility] A/G RATIO 1.8 0.8 - 2.0 [facility] Calcium [Mass/volume] in Serum or Plasma 9.6 MG/DL 8.4 - 10.2 [facility] Bilirubin.total [Mass/volume] in Serum or Plasma <0.7 MG/DL 0.2 - 1.3 [facility] Alkaline phosphatase [Enzymatic activity/volume] in Serum or Plasma 116 U/L 38 - 126 [facility] Aspartate aminotransferase [Enzymatic activity/volume] in Serum or Plasma 21 U/L 5 - 40 [facility] Alanine aminotransferase [Enzymatic activity/volume] in Seru m or Plasma 25 U/L 7 - 56 [facility] Anion gap 3 in Serum or Plasma 17.0 mmol/L 8.0 - 16.[address] [facility] AGE 69 yrs [facility] GFR 52 mL/min [facility] AFR AMER GFR >60 [facility] Male GFR In terprentation 20-49 yrs >60 mL/min Normal 50-59 yrs >56 mL/min Normal 60-69 yrs >49 mL/min Normal 70-79yrs >42 mL/min Normal 80 and above >35 mL/min Normal Female GFR Interpretation 20-39 yrs >60 mL/min Normal 40-49 yrs >58 mL/min Normal 50-59 yrs >51 mL/min Normal 60-69 yrs >45 mL/min Normal 70-79 yrs >39 mL/min Normal 80 and above >32 mL/min Normal ID Date Data Source [id number] 05/02/2020 09:33:00 AM EDT [facility] [address] [place] [address] PHONE: [phone] FAX: [phone] Name .................. : BISMARK BRITNEY M Acct Number.................. : [id number] ROOM. ................. : 110-1 Number ................... : [id number] Stay type ............. : I/P Discharge Date......... ... : Admit Date ......... : 04/07 Admit Phys .................... : KENNY HU Date of ....... : 1950 Family Phys ................... : SMITH Phone .................. : [phone] Age ................................ : 69 Film# .................. .:[id number] Sex ................................. : F Unsigned transcriptions are preliminary reports and do not represent a medical or legal document US ABD LIMITED [id number] COMPLETE:04/27/20 12:45 KNB [id number] (REASON FOR ABDOMEN: ABDOMINAL PAIN RIGHT UPPER QUADRANT SONOGRAM, 04/27/20: Comparison is made to a previous CT scan from earlier today. FINDINGS: The gallbladder is surgically absent. The liver demonstrates hyperechoic foci in the right hepatic lobe, which corresponds with the previously noted abnormality on the CT scan, which has been documented to be stable since 2019 [address]s. Likely represents hemangioma. The liver otherwise appears unremarkable. No evidence of intrahepatic biliary ductal dilatation is identified. Right kidney measures 10.7 x 5.6 x 5.6 cm in size. There is a cyst identified measuring 1.4 x 1.4 x 0.9 cm. An extrarenal pelvis is identified. The visualized portions of the pancreas appear unremarkable. IMPRESSION: Hyperechoic foci identified in the liver were noted on the previous CT scan and have been compared dating back to 2019 and appear stable. Possibly represent hemangiomas. No acute findings are noted. Common duct is normal at 7 mm. Gallbladder is surgically absent. Examination dictated by PEPPER Garrido. Examination was reviewed with Chuck Amanda MD, radiologist at the time of this dictation. Electronically Reviewed and Signed By Chuck Amanda MD , 05/02/20 09:33, KGG Transcribe Initials: SSR, Transcribe Date: 04/27/20 13:17, Dictation Date: Page 1 of 2 [place] [address] PHONE: [phone] FAX: [phone] Name .................. : BISMARK Thomson Acct Number.................. : [id number] ROOM. ................. : 110-1 MR Number ................... : [id number] Stay type ............. : I/P Discharge Date......... ... : Admit Date ......... : 04/25/20 Admit Phys .................... : KENNY HU Date of ....... : 1950 Family Phys ................... : LYNDA MARIA LUISA Phone .................. : [phone] Age ................................ : 69 Film# .................. .:[id number] Sex ................................. : F Unsigned transcriptions are preliminary reports and do not represent a medical or legal document US ABD LIMITED [id number] COMPLETE:04/27/20 12:45 KNB [id number] (REASON FOR ABDOMEN: ABDOMINAL PAIN Copy for: 710 MED REC DISCHARGED Page 2 of 2 Name Value Range Interpretation Code Description Data Theresa rce(s) Supporting Document(s) ID Date Data Source [id number] 05/02/2020 09:33:00 AM EDT [facility] [address] [place] [address] PHONE: [phone] FAX: [phone] Name .................. : BISMARK Thomson Acct Number.................. : [id number] ROOM. ................. : 110-1 MR Number ................... : [id number] Stay type ............. : I/P Discharge Date......... ... : Admit Date ......... : 04/07 Admit Phys .................... : KENNY HU Date of ....... : 1950 Family Phys ................... : SMITH Phone .................. : [phone] Age ................................ : 69 Film# .................. .:[id number] Sex ................................. : F Unsigned transcriptions are preliminary reports and do not represent a medical or legal document CT ABD & PELVIS W/ IV ONLY [id number] COMPLETE:04/27/20 10:25 [id number] (REASON FOR ABDOMEN: ABDOMINAL PAIN CT SCAN OF THE ABDOMEN & PELVIS WITH IV CONTRAST, 04/27/20: INDICATION: Abdominal pain. Comparison is made to a previous examination from 04/21/2020. FINDINGS: Lung bases show no definite focal infiltrate or consolidation. Mild atelectasis is present at the right lung base. Spleen, pancreas all appear unremarkable. In the liver there is a subtle hypodense area in the anterior right hepatic lobe, which when comparison is made to a previous study from 06/19/2019 has not significantly changed. The kidneys show irregularity along the margins, unchanged since prior study, probably secondary to scarring and small cyst. The largest cyst is on the left side and is exophytic at the lower pole measuring approximately 57 mm. Hounsfield units measures 6.5. Bilateral adrenal lesions are again identified, which have not significantly changed and likely represent adenomas. Enteric contents appear unremarkable. Moderate stool is identified in the ascending colon. There is incidental note of a fat-containing umbilical hernia, unchanged as compared to the prior study. Atherosclerotic disease is identified in the aorta. 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 This is unchanged as compared to the previous examination. 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 No free fluid is identified in the pelvis. Urinary bladder appears grossly unremarkable. Osseous structures show degenerative changes. IMPRESSION: Subtle hypodense area is identified in the right hepatic lobe, unchanged as compared to prior study from 06/19/2019. Renal cysts. Stable adrenal lesions, likely adenomas. Fat-containing umbilical hernia, unchanged as compared to the previous examination. Remainder of examination appears unremarka ble. Page 1 of 2 [facility] [address] [place] [address] PHONE: [phone] FAX: [phone] Name .................. : BISMARK Thomson Acct Number.................. : [id number] ROOM. ................. : 110-1 MR Number ................... : [id number] Stay type ............. : I/P Discharge Date......... ... : Admit Date ......... : 04/25/20 Admit Phys .................... : KENNY HU Date of ....... : 1950 Family Phys ................... : SMITH Phone .................. : [phone] Age ................................ : 69 Film# .................. .:[id number] Sex ................................. : F Unsigned transcriptions are preliminary reports and do not represent a medical or legal document CT ABD & PELVIS W/ IV ONLY [id number] COMPLETE:04/27/20 10:25 [id number] (REASON FOR ABDOMEN: ABDOMINAL PAIN While performing the above CT examination, radiation dose reduction was accomplished utilizing automated exposure control, adjusting of the mA and kV based on the patient's body size and/or the use of imperative reconstructive techniques. CT dose 872.3 mGycm. Contrast agent in mL: 75 mL Isovue 370 Method of administration: Intravenous Examination dictated by PEPPER Garrido. Examination was reviewed with Chuck Amanda MD, radiologist at the time of this dictation. Electronically Reviewed and Signed By Chuck Amanda MD , 05/02/20 09:33, KGG Transcribe Initials: SSR, Transcribe Date: 04/27/20 13:01, Dictation Date: Copy for: 710 MED REC DISCHARGED Page 2 of 2 Name Value Range Interpretation Code Description Data Theresa rce(s) Supporting Document(s) ID Date Data Source [id number] 04/29/2020 06:47:[address] [facility] Name Value Range Interpretation Code Description Data Theresa rce(s) Supporting Document(s) COMPREHENSIVE METABOLIC PANEL [facility] COMPREHENSIVE METABOLIC PANEL Sodium [Moles/volume] in Serum or Plasma 143 mEq/L 134 - 153 [facility] Potassium [Moles/volume] in Serum or Plasma 4.6 mEq/L 3.6 - 5.0 [facility] Chloride [Moles/volume] in Serum or Plasma 109 mEq/L 98 - [address] [facility] Carbon dioxide, total [Moles/volume] in Serum or Plasma 29 MEQ/L 22 - 30 [facility] Glucose [Mass/volume] in Serum or Plasma 92 MG/DL 65 - 110 [facility] BUN 8 MG/DL 7 - 21 [facility] al Creatinine [Mass/volume] in Serum or Plasma 0.9 MG/DL 0.7 - 1.5 [facility] BUN/CREAT 9 8 - 27 [facility] al Protein [Mass/volume] in Serum or Plasma 4.7 G/DL 6.3 - 8.[address] [facility] Albumin [Mass/volume] in Serum or Plasma 2.9 G/DL 3.9 - 5.[address] [facility] Globulin [Mass/volume] in Serum by calculation 1.8 GM/DL 2.4 - 3.[address] [facility] A/G RATIO 1.6 0.8 - 2.0 [facility] Calcium [Mass/volume] in Serum or Plasma 8.4 MG/DL 8.4 - 10.2 [facility] Bilirubin.total [Mass/volume] in Serum or Plasma <0.7 MG/DL 0.2 - 1.3 [facility] Alkaline phosphatase [Enzymatic activity/volume] in Serum or Plasma 83 U/L 38 - 126 [facility] Aspartate aminotransferase [Enzymatic activity/volume] in Serum or Plasma 19 U/L 5 - 40 [facility] Alanine aminotransferase [Enzymatic activity/volume] in Seru m or Plasma 34 U/L 7 - 56 [facility] Anion gap 3 in Serum or Plasma 5.0 mmol/L 8.0 - 16.[address] [facility] AGE 69 yrs [facility] NON-AA GFR >60 mL/min [facility] ital AFR AMER GFR >60 [facility] Male GFR In terprentation 20-49 yrs >60 mL/min Normal 50-59 yrs >56 mL/min Normal 60-69 yrs >49 mL/min Normal 70-79yrs >42 mL/min Normal 80 and above >35 mL/min Normal Female GFR Interpretation 20-39 yrs >60 mL/min Normal 40-49 yrs >58 mL/min Normal 50-59 yrs >51 mL/min Normal 60-69 yrs >45 mL/min Normal 70-79 yrs >39 mL/min Normal 80 and above >32 mL/min Normal ID Date Data Source [id number] 04/29/2020 05:57:[address] [facility] Name Value Range Interpretation Code Description Data Theresa rce(s) Supporting Document(s) CBC W/AUTOMATED DIFF [facility] COMPLETE BLOOD COUNT Leukocytes [#/volume] in Blood by Automated count 6.2 10^3/uL 4.2 - [address] [facility] Erythrocytes [#/volume] in Blood by Automated count 2.52 10^6/uL 4. 20 - 5.[address] [facility] Hemoglobin [Mass/volume] in Blood 9.4 g/dL 12.0 - 16.[address] [facility] Hematocrit [Volume Fraction] of Blood by Automated count 29.4 % 3 7.0 - 47.[address] [facility] Erythrocyte mean corpuscular volume [Entitic volume] b y Automated count 116.7 fL 81.0 - [address] [facility] Erythrocyte mean corpuscular hemoglobin [Entitic mass] by Automated count 37.3 pg 27.0 - 34.[address] [facility] Erythrocyte mean corpuscular hemoglobin concentration [Mass/volume] by Automated count 32.0 g/dL 31.0 - 36.0 [facility] Erythrocyte distribution width [Ratio] by Automated count 16.5 % 11.5 - 14.[address] [facility] Platelets [#/volume] in Blood by Automated count 269 10^3/uL 150 - [address] [facility] Platelet mean volume [Entitic volume] in Blood by Automated count 9.8 fL 7.4 - 10.4 [facility] Neutrophils/100 leukocytes in Blood by Automated count 57.5 % 37. 0 - 80.0 [facility] Lymphocytes/100 leukocytes in Blood by Manual count 13.7 % 25.0 - 40.[address] [facility] Monocytes/100 leukocytes in Blood by Automated count 13.3 % 3.0 - 8.[address] [facility] Eosinophils/100 leukocytes in Blood by Automated count 13.7 % 0.0 - 7.[address] [facility] Basophils/100 leukocytes in Blood by Automated count 0.5 % 0.0 - 2.5 [facility] %IG 1.3 % 0.0 - 0.0 [facility] %[facility] 0.0 % 0.0 - 0.0 [facility] al Neutrophils [#/volume] in Blood by Automated count 3.54 10^3/uL 2.00 - 6.90 [facility] Lymphocytes [#/volume] in Blood by Automated count 0.84 10^3/uL 0.60 - 3.40 [facility] Monocytes [#/volume] in Blood by Automated count 0.82 10^3/uL 0.00 - 0.90 [facility] Eosinophils [#/volume] in Blood by Automated count 0.84 10^3/uL 0.00 - 0.[address] [facility] Basophils [#/volume] in Blood by Automated count 0.03 10^3/uL 0.00 - 0.20 [facility] #IG 0.08 10^3/uL 0.00 - 0.10 [facility] ospital #NRBC 0.00 10^3/uL 0.00 - 0.00 [facility] ospital MANUAL DIFF NOT INDICATED [facility] RBC MORPH NOT INDICATED [facility] spital ID Date Data Source [id number] 04/28/2020 07:53:[address] [facility] Name Value Range Interpretation Code Description Data Theresa rce(s) Supporting Document(s) COMPREHENSIVE METABOLIC PANEL [facility] COMPREHENSIVE METABOLIC PANEL Sodium [Moles/volume] in Serum or Plasma 144 mEq/L 134 - 153 [facility] Potassium [Moles/volume] in Serum or Plasma 4.1 mEq/L 3.6 - 5.0 [facility] Chloride [Moles/volume] in Serum or Plasma 107 mEq/L 98 - 107 [facility] Carbon dioxide, total [Moles/volume] in Serum or Plasma 29 MEQ/L 22 - 30 [facility] Glucose [Mass/volume] in Serum or Plasma 95 MG/DL 65 - 110 [facility] BUN 6 MG/DL 7 - 21 L [facility] al Creatinine [Mass/volume] in Serum or Plasma 0.7 MG/DL 0.7 - 1.5 [facility] BUN/CREAT 9 8 - 27 [facility] al Protein [Mass/volume] in Serum or Plasma 4.9 G/DL 6.3 - 8.[address] [facility] Albumin [Mass/volume] in Serum or Plasma 3.4 G/DL 3.9 - 5.[address] [facility] Globulin [Mass/volume] in Serum by calculation 1.5 GM/DL 2.4 - 3.[address] [facility] A/G RATIO 2.3 0.8 - 2.0 H [facility] Calcium [Mass/volume] in Serum or Plasma 8.6 MG/DL 8.4 - 10.2 [facility] Bilirubin.total [Mass/volume] in Serum or Plasma <0.7 MG/DL 0.2 - 1.3 [facility] Alkaline phosphatase [Enzymatic activity/volume] in Serum or Plasma 90 U/L 38 - 126 [facility] Aspartate aminotransferase [Enzymatic activity/volume] in Serum or Plasma 20 U/L 5 - 40 [facility] Alanine aminotransferase [Enzymatic activity/volume] in Seru m or Plasma 41 U/L 7 - 56 [facility] Anion gap 3 in Serum or Plasma 8.0 mmol/L 8.0 - 16.0 [facility]GE 69 yrs [facility] >60 mL/min [facility] ital AFR AMER GFR >60 [facility] Male GFR In terprentation 20-49 yrs >60 mL/min Normal 50-59 yrs >56 mL/min Normal 60-69 yrs >49 mL/min Normal 70-79yrs >42 mL/min Normal 80 and above >35 mL/min Normal Female GFR Interpretation 20-39 yrs >60 mL/min Normal 40-49 yrs >58 mL/min Normal 50-59 yrs >51 mL/min Normal 60-69 yrs >45 mL/min Normal 70-79 yrs >39 mL/min Normal 80 and above >32 mL/min Normal ID Date Data Source [id number] 04/28/2020 07:46:[address] [facility] Name Value Range Interpretation Code Description Data Theresa rce(s) Supporting Document(s) Lipase [Enzymatic activity/volume] in Serum or Plasma 32 U/L 13 - 60 [facility] ID Date Data Source [id number] 04/28/2020 07:06:[address] [facility] Name Value Range Interpretation Code Description Data Theresa rce(s) Supporting Document(s) CBC W/AUTOMATED DIFF [facility] COMPLETE BLOOD COUNT Leukocytes [#/volume] in Blood by Automated count 6.3 10^3/uL 4.2 - [address] [facility] Erythrocytes [#/volume] in Blood by Automated count 2.52 10^6/uL 4. 20 - 5.[address] [facility] Hemoglobin [Mass/volume] in Blood 9.5 g/dL 12.0 - 16.[address] [facility] Hematocrit [Volume Fraction] of Blood by Automated count 29.3 % 3 7.0 - 47.[address] [facility] Erythrocyte mean corpuscular volume [Entitic volume] b y Automated count 116.3 fL 81.0 - [address] [facility] Erythrocyte mean corpuscular hemoglobin [Entitic mass] by Automated count 37.7 pg 27.0 - 34.[address] [facility] Erythrocyte mean corpuscular hemoglobin concentration [Mass/volume] by Automated count 32.4 g/dL 31.0 - 36.0 [facility] Erythrocyte distribution width [Ratio] by Automated count 16.8 % 11.5 - 14.[address] [facility] Platelets [#/volume] in Blood by Automated count 216 10^3/uL 150 - [address] [facility] Platelet mean volume [Entitic volume] in Blood by Automated count 10.3 fL 7.4 - 10.4 [facility] Neutrophils/100 leukocytes in Blood by Automated count 61.6 % 37. 0 - 80.0 [facility] Lymphocytes/100 leukocytes in Blood by Manual count 15.6 % 25.0 - 40.[address] [facility] Monocytes/100 leukocytes in Blood by Automated count 7.6 % 3.0 - 8.0 [facility] Eosinophils/100 leukocytes in Blood by Automated count 13.8 % 0.0 - 7.[address] [facility] Basophils/100 leukocytes in Blood by Automated count 0.3 % 0.0 - 2.5 [facility] %IG 1.1 % 0.0 - 0.0 H [facility] %NRBC 0.0 % 0.0 - 0.0 [facility] al Neutrophils [#/volume] in Blood by Automated count 3.88 10^3/uL 2.00 - 6.90 [facility] Lymphocytes [#/volume] in Blood by Automated count 0.98 10^3/uL 0.60 - 3.40 [facility] Monocytes [#/volume] in Blood by Automated count 0.48 10^3/uL 0.00 - 0.90 [facility] Eosinophils [#/volume] in Blood by Automated count 0.87 10^3/uL 0.00 - 0.[address] [facility] Basophils [#/volume] in Blood by Automated count 0.02 10^3/uL 0.00 - 0.20 [facility] #IG 0.07 10^3/uL 0.00 - 0.10 [facility] #NRBC 0.00 10^3/uL 0.00 - 0.00 [facility] ospital MANUAL DIFF NOT INDICATED [facility] RBC MORPH NOT INDICATED [facility] sp[facility] ID Date Data Source [id number] 04/27/2020 06:47:[address] [facility] Name Value Range Interpretation Code Description Data Theresa rce(s) Supporting Document(s) TROPONIN T <0.01 NG/ML 0.00 - 0.10 [facility]spital TROPONIN T0.1 ng/ml Recommended as the c linical threshold value forTroponin T. ID Date Data Source [id number] 04/27/2020 08:26:00 PM EDT [facility] FilmArray Gastrointestinal panel is a qu alitativemultiplexed NAAT test - PCRFilmArray GI panel detects campylobacter,cdiff,plesiomonasshigelloides,salmonella,vibro,vibrio cholerae,yersiniaenterocolitica, diarrheagenic E coli, EAEC,EPEC,ETEC,STEC I and II, E coli 0157, shigella/enteroinvasive E.coli(EIEC),cryptosporidium,cyclospora cayetanensis,entamoebahistolytica,giardia lamblia,adenovirus F 40/41,as trovirus,norovirus GI/GII, rotavirus A, sapovirus.NORMAL VALUE FOR ALL PATHOGENS IS "NOT DETECTED"THE [employer] GASTROINTESTINAL PANEL DOES NOT DIFFERENTIATEBETWEEN VIABLE AND NONVIABLE ORGANISMSTHE PERFORMANCE OF THIS TEST HAS NOT BEEN ESTABLISHED FORPATIENTS WITHOUT SIGNS AND SYMPTOMS OF GASTROINTESTINALILLNESS.THE PERFORMANCE OF THIS TEST HAS NOT BEEN ESTABLISHED FORMONITORING TREATMENT OF INFECTION WITH ANY OF THE PANELORGANISMS.RECENT ORAL ADMINISTRATION OF A ROTAVIRUS A VACCINE MAYCAUSE POSITIVE RESULTS FOR ROTAVIRUS A IF THE VIRUS ISPASSED IN THE STOOL.RESULT FROM THIS TEST MUST BE CORRELATED WITH THE CLINICALHISTORY, EPIDEMIOLOGICAL DATA AND OTHER DATA AVAILBLE TO THECLINICIAN EVALUATING THE PATIENT. NEGATIVE RESULTS SHOULDNOT BE USED THE SOLE BASIS FOR DIAGNOSIS, TREATMENT, OROTHER MANAGEMENT DECISIONS.DUE TO HIGH RATES OF ASYMPTOMATIC CARRIAGE OF C. DIFF,ESPECIALLY IN VERY YOUNG CHILDREN AND HOSPITALIZED PATIENTS,THE DETECTION OF TOXIGENIC C. DIFF SHOULD BE INTERPRETEDWI THIN THE CONTEXT OF QUIDELINES DEVELOPED BY THE TESTINGFACILITY OR OTHER EXPERTS. (E.G. GUIDELINES/POLICYSTATEMENTS PUBLISHED BY THE [employer] THE SOCIETY FOR HEALTHCARE EPIDEMIOLOGY OF [place] ANDTHE INFECTIOUS DISEASE SOCIETY OF [place]).No Organisms Detected Name Value Range Interpretation Code Description Data Theresa rce(s) Supporting Document(s) ID Date Data Source [id number] 04/28/2020 01:10:[address] [facility] Name Value Range Interpretation Code Description Data Theresa rce(s) Supporting Document(s) GI PANEL [facility] _GASTROINTESTINAL PANEL_ TEST PE RFORMED AT [address] [address] CLIA# [id number] SEE SCANNED REPORT ID Date Data Source [id number] 04/27/2020 02:14:[address] [facility] Name Value Range Interpretation Code Description Data Theresa rce(s) Supporting Document(s) LAB - SPECIMEN REJECTION [facility] Specimen Integrity/Specimen Recollection The patient sample needs to be resubmitted for the following reason: Test(s) Ordered GI PANEL [facility] Rejection Reason DUPLICATE ORDER [facility] ONE PERFORMED ON [facility]/20[facility] WILL REJECT SPECIMEN DUE TOPREVIOUS RESULTS{ One or more of the tests you ordered cannot be performed.{ Please recollect, reorder, and resubmit if needed. ID Date Data Source [id number] 04/27/2020 10:27:[address] [facility] Name Value Range Interpretation Code Description Data Theresa rce(s) Supporting Document(s) Lipase [Enzymatic activity/volume] in Serum or Plasma 77 U/L 13 - [address] [facility] ID Date Data Source [id number] 04/27/2020 01:10:[address] [facility] Name Value Range Interpretation Code Description Data Theresa rce(s) Supporting Document(s) TROPONIN T <0.01 NG/ML 0.00 - 0.10 [facility] ospital TROPONIN T0.1 ng/ml Recommended as the c linical threshold value forTroponin T. ID Date Data Source [id number] 04/27/2020 06:57:[address] [facility] Name Value Range Interpretation Code Description Data Theresa rce(s) Supporting Document(s) COMPREHENSIVE METABOLIC PANEL [facility] COMPREHENSIVE METABOLIC PANEL Sodium [Moles/volume] in Serum or Plasma 142 mEq/L 134 - 153 [facility] Potassium [Moles/volume] in Serum or Plasma 4.0 mEq/L 3.6 - 5.0 [facility] Chloride [Moles/volume] in Serum or Plasma 106 mEq/L 98 - 107 [facility] Carbon dioxide, total [Moles/volume] in Serum or Plasma 29 MEQ/L 22 - 30 [facility] Glucose [Mass/volume] in Serum or Plasma 118 MG/DL 65 - [address] [facility] BUN 8 MG/DL 7 - 21 [facility] Creatinine [Mass/volume] in Serum or Plasma 0.7 MG/DL 0.7 - 1.5 [facility] BUN/CREAT 11 8 - 27 [facility] al Protein [Mass/volume] in Serum or Plasma 5.3 G/DL 6.3 - 8.[address] [facility] Albumin [Mass/volume] in Serum or Plasma 3.4 G/DL 3.9 - 5.[address] [facility] Globulin [Mass/volume] in Serum by calculation 1.9 GM/DL 2.4 - 3.[address] [facility] A/G RATIO 1.8 0.8 - 2.0 [facility] Calcium [Mass/volume] in Serum or Plasma 8.5 MG/DL 8.4 - 10.2 [facility] Bilirubin.total [Mass/volume] in Serum or Plasma <0.7 MG/DL 0.2 - 1.3 [facility] Alkaline phosphatase [Enzymatic activity/volume] in Serum or Plasma 103 U/L 38 - 126 [facility] Aspartate aminotransferase [Enzymatic activity/volume] in Serum or Plasma 17 U/L 5 - 40 [facility] Alanine aminotransferase [Enzymatic activity/volume] in Seru m or Plasma 50 U/L 7 - 56 [facility] Anion gap 3 in Serum or Plasma 7.0 mmol/L 8.0 - 16.[address] [facility] AGE 69 yrs [facility] NON-AA GFR >60 mL/min [facility] ital AFR AMER GFR >60 [facility] Male GFR In terprentation 20-49 yrs >60 mL/min Normal 50-59 yrs >56 mL/min Normal 60-69 yrs >49 mL/min Normal 70-79yrs >42 mL/min Normal 80 and above >35 mL/min Normal Female GFR Interpretation 20-39 yrs >60 mL/min Normal 40-49 yrs >58 mL/min Normal 50-59 yrs >51 mL/min Normal 60-69 yrs >45 mL/min Normal 70-79 yrs >39 mL/min Normal 80 and above >32 mL/min Normal ID Date Data Source [id number] 04/27/2020 06:47:[address] [facility] Name Value Range Interpretation Code Description Data Theresa rce(s) Supporting Document(s) Magnesium [Mass/volume] in Serum or Plasma 1.7 MG/DL 1.7 - 2.2 [facility] ID Date Data Source [id number] 04/27/2020 06:32:[address] [facility] Name Value Range Interpretation Code Description Data Theresa rce(s) Supporting Document(s) CBC W/AUTOMATED DIFF [facility] COMPLETE BLOOD COUNT Leukocytes [#/volume] in Blood by Automated count 11.2 10^3/uL 4.2 - 11.[address] [facility] Erythrocytes [#/volume] in Blood by Automated count 2.66 10^6/uL 4. 20 - 5.[address] [facility] Hemoglobin [Mass/volume] in Blood 10.0 g/dL 12.0 - 16.[address] [facility] Hematocrit [Volume Fraction] of Blood by Automated count 30.3 % 3 7.0 - 47.[address] [facility] Erythrocyte mean corpuscular volume [Entitic volume] b y Automated count 113.9 fL 81.0 - [address] [facility] Erythrocyte mean corpuscular hemoglobin [Entitic mass] by Automated count 37.6 pg 27.0 - 34.[address] [facility] Erythrocyte mean corpuscular hemoglobin concentration [Mass/volume] by Automated count 33.0 g/dL 31.0 - 36.0 [facility] Erythrocyte distribution width [Ratio] by Automated count 16.7 % 11.5 - 14.[address] [facility] Platelets [#/volume] in Blood by Automated count 178 10^3/uL 150 - [address] [facility] Platelet mean volume [Entitic volume] in Blood by Automated count 10.7 fL 7.4 - 10.[address] [facility] Neutrophils/100 leukocytes in Blood by Automated count 72.1 % 37. 0 - 80.0 [facility] Lymphocytes/100 leukocytes in Blood by Manual count 8.4 % 25.0 - 40.[address] [facility] Monocytes/100 leukocytes in Blood by Automated count 5.8 % 3.0 - 8.0 [facility] Eosinophils/100 leukocytes in Blood by Automated count 12.2 % 0.0 - 7.[address] [facility] Basophils/100 leukocytes in Blood by Automated count 0.3 % 0.0 - 2.5 [facility] %IG 1.2 % 0.0 - 0.0 [facility] 0.2 % 0.0 - 0.0 [facility] Neutrophils [#/volume] in Blood by Automated count 8.05 10^3/uL 2.00 - 6.[address] [facility] Lymphocytes [#/volume] in Blood by Automated count 0.94 10^3/uL 0.60 - 3.40 [facility] Monocytes [#/volume] in Blood by Automated count 0.65 10^3/uL 0.00 - 0.90 [facility] Eosinophils [#/volume] in Blood by Automated count 1.36 10^3/uL 0.00 - 0.[address] [facility] Basophils [#/volume] in Blood by Automated count 0.03 10^3/uL 0.00 - 0.20 [facility] #IG 0.13 10^3/uL 0.00 - 0.10 [facility] #NRBC 0.02 10^3/uL 0.00 - 0.00 [facility] MANUAL DIFF NOT INDICATED [facility] RBC MORPH NOT INDICATED [facility] ID Date Data Source [id number] 04/26/2020 01:20:[address] [facility] Name Value Range Interpretation Code Description Data Theresa rce(s) Supporting Document(s) Hemoglobin [Mass/volume] in Blood 9.5 g/dL 12.0 - 16.[address] [facility] Hematocrit [Volume Fraction] of Blood by Automated count 28.5 % 3 7.0 - 47.[address] [facility] ID Date Data Source [id number] 04/26/2020 07:26:[address] [facility] Name Value Range Interpretation Code Description Data Theresa rce(s) Supporting Document(s) Magnesium [Mass/volume] in Serum or Plasma 1.6 MG/DL 1.7 - 2.[address] [facility] ID Date Data Source [id number] 04/26/2020 07:26:[address] [facility] Name Value Range Interpretation Code Description Data Theresa rce(s) Supporting Document(s) COMPREHENSIVE METABOLIC PANEL [facility] COMPREHENSIVE METABOLIC PANEL Sodium [Moles/volume] in Serum or Plasma 142 mEq/L 134 - 153 [facility] Potassium [Moles/volume] in Serum or Plasma 3.6 mEq/L 3.6 - 5.0 [facility] Chloride [Moles/volume] in Serum or Plasma 108 mEq/L 98 - [address] [facility] Carbon dioxide, total [Moles/volume] in Serum or Plasma 28 MEQ/L 22 - 30 [facility] Glucose [Mass/volume] in Serum or Plasma 108 MG/DL 65 - 110 [facility] BUN 10 MG/DL 7 - 21 [facility] al Creatinine [Mass/volume] in Serum or Plasma 0.7 MG/DL 0.7 - 1.5 [facility] BUN/CREAT 14 8 - 27 [facility] al Protein [Mass/volume] in Serum or Plasma 4.4 G/DL 6.3 - 8.[address] [facility] Albumin [Mass/volume] in Serum or Plasma 3.0 G/DL 3.9 - 5.[address] [facility] Globulin [Mass/volume] in Serum by calculation 1.4 GM/DL 2.4 - 3.[address] [facility] A/G RATIO 2.1 0.8 - 2.0 H [facility] al Calcium [Mass/volume] in Serum or Plasma 7.8 MG/DL 8.4 - 10.[address] [facility] Bilirubin.total [Mass/volume] in Serum or Plasma <0.7 MG/DL 0.2 - 1.3 [facility] Alkaline phosphatase [Enzymatic activity/volume] in Serum or Plasma 82 U/L 38 - 126 [facility] Aspartate aminotransferase [Enzymatic activity/volume] in Serum or Plasma 15 U/L 5 - 40 [facility] Alanine aminotransferase [Enzymatic activity/volume] in Seru m or Plasma 50 U/L 7 - 56 [facility] Anion gap 3 in Serum or Plasma 6.0 mmol/L 8.0 - 16.[address] [facility] AGE 69 yrs [facility] NON-AA GFR >60 mL/min [facility] ital AFR AMER GFR >60 [facility] Male GFR In terprentation 20-49 yrs >60 mL/min Normal 50-59 yrs >56 mL/min Normal 60-69 yrs >49 mL/min Normal 70-79yrs >42 mL/min Normal 80 and above >35 mL/min Normal Female GFR Interpretation 20-39 yrs >60 mL/min Normal 40-49 yrs >58 mL/min Normal 50-59 yrs >51 mL/min Normal 60-69 yrs >45 mL/min Normal 70-79 yrs >39 mL/min Normal 80 and above >32 mL/min Normal ID Date Data Source [id number] 04/26/2020 06:58:[address] [facility] Name Value Range Interpretation Code Description Data Theresa rce(s) Supporting Document(s) CBC NO DIFF [facility] ital COMPLETE BLOOD COUNT Leukocytes [#/volume] in Blood by Automated count 10.1 10^3/uL 4.2 - 11.0 [facility] Erythrocytes [#/volume] in Blood by Automated count 2.25 10^6/uL 4. 20 - 5.[address] [facility] Hemoglobin [Mass/volume] in Blood 8.5 g/dL 12.0 - 16.[address] [facility] Hematocrit [Volume Fraction] of Blood by Automated count 25.6 % 3 7.0 - 47.[address] [facility] Erythrocyte mean corpuscular volume [Entitic volume] b y Automated count 113.8 fL 81.0 - [address] [facility] Erythrocyte mean corpuscular hemoglobin [Entitic mass] by Automated count 37.8 pg 27.0 - 34.[address] [facility] Erythrocyte mean corpuscular hemoglobin concentration [Mass/volume] by Automated count 33.2 g/dL 31.0 - 36.0 [facility] Erythrocyte distribution width [Ratio] by Automated count 16.7 % 11.5 - 14.[address] [facility] Platelets [#/volume] in Blood by Automated count 92 10^3/uL 150 - [address] [facility] Platelet mean volume [Entitic volume] in Blood by Automated count 11.2 fL 7.4 - 10.[address] [facility] ID Date Data Source [id number] 04/25/2020 08:46:[address] [facility] Name Value Range Interpretation Code Description Data Theresa rce(s) Supporting Document(s) Lactate [Moles/volume] in Serum or Plasma 2.0 MMOL/L 0.2 - 2.2 [facility] ID Date Data Source [id number] 04/25/2020 11:13:[address] [facility] Name Value Range Interpretation Code Description Data Theresa rce(s) Supporting Document(s) Protein [Mass/volume] in Serum or Plasma 4.5 G/DL 6.3 - 8.[address] [facility] Albumin [Mass/volume] in Serum or Plasma 3.1 G/DL 3.9 - 5.[address] [facility] Globulin [Mass/volume] in Serum by calculation 1.4 GM/DL 2.4 - 3.[address] [facility] Bilirubin.total [Mass/volume] in Serum or Plasma 0.9 MG/DL 0.2 - 1.3 [facility] Bilirubin.direct [Mass/volume] in Serum or Plasma 0.3 MG/DL 0.1 - 0. 4 [facility] Bilirubin.indirect [Mass/volume] in Serum or Plasma 0.6 MG/DL 0.2 - 1.1 [facility] Aspartate aminotransferase [Enzymatic activity/volume] in Serum or Plasma 22 U/L 5 - 40 [facility] Alanine aminotransferase [Enzymatic activity/volume] in Seru m or Plasma 70 U/L 7 - [address] [facility] Alkaline phosphatase [Enzymatic activity/volume] in Serum or Plasma 95 U/L 38 - 126 [facility] ID Date Data Source [id number] 04/25/2020 08:43:00 AM EDT [facility] Value Range Interpretation Code Description Data Theresa rce(s) Supporting Document(s) Iron [Mass/volume] in Serum or Plasma 47 UG/DL 42 - 135 [facility] ID Date Data Source [id number] 04/25/2020 08:43:00 AM EDT [facility] Value Range Interpretation Code Description Data Theresa rce(s) Supporting Document(s) Magnesium [Mass/volume] in Serum or Plasma 1.7 MG/DL 1.7 - 2.2 [facility] ID Date Data Source [id number] 04/25/2020 07:23:[address] [facility] Name Value Range Interpretation Code Description Data Theresa rce(s) Supporting Document(s) BASIC METABOLIC PANEL [facility] BASIC METABOLIC PANEL Sodium [Moles/volume] in Serum or Plasma 138 mEq/L 134 - 153 [facility] Potassium [Moles/volume] in Serum or Plasma 3.2 mEq/L 3.6 - 5.[address] [facility] Chloride [Moles/volume] in Serum or Plasma 105 mEq/L 98 - 107 [facility] Carbon dioxide, total [Moles/volume] in Serum or Plasma 26 MEQ/L 22 - 30 [facility] Glucose [Mass/volume] in Serum or Plasma 95 MG/DL 65 - 110 [facility] BUN 10 MG/DL 7 - 21 [facility] al Creatinine [Mass/volume] in Serum or Plasma 0.7 MG/DL 0.7 - 1.5 [facility] BUN/CREAT 14 8 - 27 [facility] al Calcium [Mass/volume] in Serum or Plasma 8.1 MG/DL 8.4 - 10.[address] [facility] Anion gap 3 in Serum or Plasma 7.0 mmol/L 8.0 - 16.[address] [facility] AGE 69 yrs [facility] AFR AMER GFR >60 [facility] NON-AA GFR >60 mL/min [facility] Male GFR Inter prentation 20-49 yrs >60 mL/min Normal 50-59 yrs >56 mL/min Normal 60-69 yrs >49 mL/min Normal 70-79yrs >42 mL/min Normal 80 and above >35 mL/min Normal Female GFR Interpretation 20-39 yrs >60 mL/min Normal 40-49 yrs >58 mL/min Normal 50-59 yrs >51 mL/min Normal 60-69 yrs >45 mL/min Normal 70-79 yrs >39 mL/min Normal 80 and above >32 mL/min Normal ID Date Data Source [id number] 04/25/2020 06:43:[address] [facility] Name Value Range Interpretation Code Description Data Theresa rce(s) Supporting Document(s) CBC W/AUTOMATED DIFF [facility] COMPLETE BLOOD COUNT Leukocytes [#/volume] in Blood by Automated count 11.0 10^3/uL 4.2 - 11.0 [facility] Erythrocytes [#/volume] in Blood by Automated count 2.49 10^6/uL 4. 20 - 5.[address] [facility] Hemoglobin [Mass/volume] in Blood 9.7 g/dL 12.0 - 16.[address] [facility] Hematocrit [Volume Fraction] of Blood by Automated count 27.8 % 3 7.0 - 47.[address] [facility] Erythrocyte mean corpuscular volume [Entitic volume] b y Automated count 111.6 fL 81.0 - [address] [facility] Erythrocyte mean corpuscular hemoglobin [Entitic mass] by Automated count 39.0 pg 27.0 - 34.[address] [facility] Erythrocyte mean corpuscular hemoglobin concentration [Mass/volume] by Automated count 34.9 g/dL 31.0 - 36.0 [facility] Erythrocyte distribution width [Ratio] by Automated count 16.1 % 11.5 - 14.[address] [facility] Platelets [#/volume] in Blood by Automated count 64 10^3/uL 150 - [address] [facility] Platelet mean volume [Entitic volume] in Blood by Automated count 11.6 fL 7.4 - 10.[address] [facility] Neutrophils/100 leukocytes in Blood by Automated count 78.5 % 37. 0 - 80.0 [facility] Lymphocytes/100 leukocytes in Blood by Manual count 8.7 % 25.0 - 40.[address] [facility] Monocytes/100 leukocytes in Blood by Automated count 3.4 % 3.0 - 8.0 [facility] Eosinophils/100 leukocytes in Blood by Automated count 8.5 % 0.0 - 7.[address] [facility] Basophils/100 leukocytes in Blood by Automated count 0.2 % 0.0 - 2.5 [facility] %IG 0.7 % 0.0 - 0.0 [facility] %NRBC 0.0 % 0.0 - 0.0 [facility] al Neutrophils [#/volume] in Blood by Automated count 8.63 10^3/uL 2.00 - 6.[address] [facility] Lymphocytes [#/volume] in Blood by Automated count 0.96 10^3/uL 0.60 - 3.40 [facility] Monocytes [#/volume] in Blood by Automated count 0.37 10^3/uL 0.00 - 0.90 [facility] Eosinophils [#/volume] in Blood by Automated count 0.93 10^3/uL 0.00 - 0.[address] [facility] Basophils [#/volume] in Blood by Automated count 0.02 10^3/uL 0.00 - 0.20 [facility] #IG 0.08 10^3/uL 0.00 - 0.10 [facility] ospital #NRBC 0.00 10^3/uL 0.00 - 0.00 [facility] ospital MANUAL DIFF NOT INDICATED [facility] RBC MORPH NOT INDICATED [facility] spital ID Date Data Source [id number] 04/24/2020 10:07:[address] [facility] Name Value Range Interpretation Code Description Data Theresa rce(s) Supporting Document(s) Lactate [Moles/volume] in Serum or Plasma 2.5 MMOL/L 0.2 - 2.[address] [facility] ID Date Data Source [id number] 04/24/2020 04:04:[address] [facility] Name Value Range Interpretation Code Description Data Theresa rce(s) Supporting Document(s) CBC W/AUTOMATED DIFF [facility] COMPLETE BLOOD COUNT Leukocytes [#/volume] in Blood by Automated count 11.4 10^3/uL 4.2 - 11.[address] [facility] Erythrocytes [#/volume] in Blood by Automated count 2.53 10^6/uL 4. 20 - 5.[address] [facility] Hemoglobin [Mass/volume] in Blood 9.6 g/dL 12.0 - 16.[address] [facility] Hematocrit [Volume Fraction] of Blood by Automated count 28.4 % 3 7.0 - 47.[address] [facility] Erythrocyte mean corpuscular volume [Entitic volume] b y Automated count 112.3 fL 81.0 - [address] [facility] Erythrocyte mean corpuscular hemoglobin [Entitic mass] by Automated count 37.9 pg 27.0 - 34.[address] [facility] Erythrocyte mean corpuscular hemoglobin concentration [Mass/volume] by Automated count 33.8 g/dL 31.0 - 36.0 [facility] Erythrocyte distribution width [Ratio] by Automated count 16.1 % 11.5 - 14.[address] [facility] Platelets [#/volume] in Blood by Automated count 56 10^3/uL 150 - [address] [facility] Platelet mean volume [Entitic volume] in Blood by Automated count 11.8 fL 7.4 - 10.[address] [facility] Neutrophils/100 leukocytes in Blood by Automated count 87.5 % 37. 0 - 80.[address] [facility] Lymphocytes/100 leukocytes in Blood by Manual count 6.5 % 25.0 - 40.[address] [facility] Monocytes/100 leukocytes in Blood by Automated count 3.2 % 3.0 - 8.0 [facility] Eosinophils/100 leukocytes in Blood by Automated count 1.8 % 0.0 - 7.0 [facility] Basophils/100 leukocytes in Blood by Automated count 0.1 % 0.0 - 2.5 [facility] %IG 0.9 % 0.0 - 0.0 [facility] %NRBC 0.0 % 0.0 - 0.0 [facility] al Neutrophils [#/volume] in Blood by Automated count 9.98 10^3/uL 2.00 - 6.[address] [facility] Lymphocytes [#/volume] in Blood by Automated count 0.74 10^3/uL 0.60 - 3.40 [facility] Monocytes [#/volume] in Blood by Automated count 0.37 10^3/uL 0.00 - 0.90 [facility] Eosinophils [#/volume] in Blood by Automated count 0.20 10^3/uL 0.00 - 0.70 [facility] Basophils [#/volume] in Blood by Automated count 0.01 10^3/uL 0.00 - 0.20 [facility] #IG 0.10 10^3/uL 0.00 - 0.10 [facility] ospital #NRBC 0.00 10^3/uL 0.00 - 0.00 [facility] MANUAL DIFF NOT INDICATED [facility] RBC MORPH NOT INDICATED [facility] ID Date Data Source [id number] 04/24/2020 03:38:[address] [facility] Name Value Range Interpretation Code Description Data Theresa rce(s) Supporting Document(s) Lactate [Moles/volume] in Serum or Plasma 3.9 MMOL/L 0.2 - 2.2 [facility] CALL/ READ BACK MAME IN [facility] BY: CINDI [facility] DATE/TIME [facility] ID Date Data Source [id number] 04/24/2020 03:04:00 PM EDT [facility] FilmArray Gastrointestinal panel is a qu alitativemultiplexed NAAT test - PCRFilmArray GI panel detects campylobacter,cdiff,plesiomonasshigelloides,salmonella,vibro,vibrio cholerae,yersiniaenterocolitica, diarrheagenic E coli, EAEC,EPEC,ETEC,STEC I and II, E coli 0157, shigella/enteroinvasive E.coli(EIEC),cryptosporidium,cyclospora cayetanensis,entamoebahistolytica,giardia lamblia,adenovirus F 40/41,as trovirus,norovirus GI/GII, rotavirus A, sapovirus.NORMAL VALUE FOR ALL PATHOGENS IS "NOT DETECTED"THE FilmARRAY GASTROINTESTINAL PANEL DOES NOT DIFFERENTIATEBETWEEN VIABLE AND NONVIABLE ORGANISMSTHE PERFORMANCE OF THIS TEST HAS NOT BEEN ESTABLISHED FORPATIENTS WITHOUT SIGNS AND SYMPTOMS OF GASTROINTESTINALILLNESS.THE PERFORMANCE OF THIS TEST HAS NOT BEEN ESTABLISHED FORMONITORING TREATMENT OF INFECTION WITH ANY OF THE PANELORGANISMS.RECENT ORAL ADMINISTRATION OF A ROTAVIRUS A VACCINE MAYCAUSE POSITIVE RESULTS FOR ROTAVIRUS A IF THE VIRUS ISPASSED IN THE STOOL.RESULT FROM THIS TEST MUST BE CORRELATED WITH THE CLINICALHISTORY, EPIDEMIOLOGICAL DATA AND OTHER DATA AVAILBLE TO THECLINICIAN EVALUATING THE PATIENT. NEGATIVE RESULTS SHOULDNOT BE USED THE SOLE BASIS FOR DIAGNOSIS, TREATMENT, OROTHER MANAGEMENT DECISIONS.DUE TO HIGH RATES OF ASYMPTOMATIC CARRIAGE OF C. DIFF,ESPECIALLY IN VERY YOUNG CHILDREN AND HOSPITALIZED PATIENTS,THE DETECTION OF TOXIGENIC C. DIFF SHOULD BE INTERPRETEDWI THIN THE CONTEXT OF QUIDELINES DEVELOPED BY THE TESTINGFACILITY OR OTHER EXPERTS. (E.G. GUIDELINES/POLICYSTATEMENTS PUBLISHED BY THE [employer] THE SOCI[employer]Y FOR HEALTHCARE EPIDEMIOLOGY OF [place] ANDTHE INFECTIOUS DISEASE SOCIETY OF [place]).No Organisms Detected Name Value Range Interpretation Code Description Data Theresa rce(s) Supporting Document(s) Leukocytes [#/volume] in Stool by Manual count EXAMINED BY [facility] How many WBCs NO WBCS SEEN [facility] ID Date Data Source [id number] 04/24/2020 03:04:00 PM EDT [facility] Film[employer] Gastrointestinal panel is a qu alitativemultiplexed NAAT test - PCRFilmArray GI panel detects campylobacter,cdiff,plesiomonasshigelloides,salmonella,vibro,vibrio cholerae,yersiniaenterocolitica, diarrheagenic E coli, EAEC,EPEC,ETEC,STEC I and II, E coli 0157, shigella/enteroinvasive E.coli(EIEC),cryptosporidium,cyclospora cayetanensis,entamoebahistolytica,giardia lamblia,adenovirus F 40/41,as trovirus,norovirus GI/GII, rotavirus A, sapovirus.NORMAL VALUE FOR ALL PATHOGENS IS "NOT DETECTED"THE [employer] GASTROINTESTINAL PANEL DOES NOT DIFFERENTIATEBETWEEN VIABLE AND NONVIABLE ORGANISMSTHE PERFORMANCE OF THIS TEST HAS NOT BEEN ESTABLISHED FORPATIENTS WITHOUT SIGNS AND SYMPTOMS OF GASTROINTESTINALILLNESS.THE PERFORMANCE OF THIS TEST HAS NOT BEEN ESTABLISHED FORMONITORING TREATMENT OF INFECTION WITH ANY OF THE PANELORGANISMS.RECENT ORAL ADMINISTRATION OF A ROTAVIRUS A VACCINE MAYCAUSE POSITIVE RESULTS FOR ROTAVIRUS A IF THE VIRUS ISPASSED IN THE STOOL.RESULT FROM THIS TEST MUST BE CORRELATED WITH THE CLINICALHISTORY, EPIDEMIOLOGICAL DATA AND OTHER DATA AVAILBLE TO THECLINICIAN EVALUATING THE PATIENT. NEGATIVE RESULTS SHOULDNOT BE USED THE SOLE BASIS FOR DIAGNOSIS, TREATMENT, OROTHER MANAGEMENT DECISIONS.DUE TO HIGH RATES OF ASYMPTOMATIC CARRIAGE OF C. DIFF,ESPECIALLY IN VERY YOUNG CHILDREN AND HOSPITALIZED PATIENTS,THE DETECTION OF TOXIGENIC C. DIFF SHOULD BE INTERPRETEDWI THIN THE CONTEXT OF QUIDELINES DEVELOPED BY THE TESTINGFACILITY OR OTHER EXPERTS. (E.G. GUIDELINES/POLICYSTATEMENTS PUBLISHED BY THE [employer] THE SOCIETY FOR HEALTHCARE EPIDEMIOLOGY OF [place] ANDTHE INFECTIOUS DISEASE SOCIETY OF [place]).No Organisms Detected Name Value Range Interpretation Code Description Data Theresa rce(s) Supporting Document(s) ID Date Data Source [id number] 04/26/2020 10:07:[address] [facility] Name Value Range Interpretation Code Description Data Theresa rce(s) Supporting Document(s) STOOL WBCS [facility] TEST PERFORMED AT [address] [address] CLIA# [id number] SEE SCANNED REPORT ID Date Data Source [id number] 04/24/2020 09:12:[address] [facility] Name Value Range Interpretation Code Description Data Theresa rce(s) Supporting Document(s) [facility]_ TEST PE RFORMED AT [address] [address] CLIA# [id number] SEE SCANNED REPORT ID Date Data Source [id number] 04/24/2020 10:16:[address] [facility] Name Value Range Interpretation Code Description Data Theresa rce(s) Supporting Document(s) Lactate [Moles/volume] in Serum or Plasma 4.6 MMOL/L 0.2 - 2.2 [facility] CALL/ READ BACK CHARLIE ON [facility] BY: CM [facility] DATE/TIME 04/24/20 1018 [facility] ID Date Data Source [id number] 04/23/2020 12:10:[address] [facility] [address] [facility] Emergency Department [address] [place] [address] Phone #: ext- [phone] 04/23/2020 12:05 Patient: BRITNEY JUAREZ Sex: F : 1950 Age: 69yWEIGHT:68.0 kg (S) HEIGHT:62 inches (S) BMI:27.4ALLERGIES: Ambien, Fenofibrate, Lunesta, NSAIDs, TramadolCHIEF COMPLAINT: vomiting, diarrhea, abd painDIAGNOSIS: O/E - dehydrated, Diarrhea, Nausea, Platelet count below reference rangeLAB ORDERSOrder Description Priority Entered Acknowledged InitialedCBC w Diff STAT 13:06 04/23/2020 13:07 Yash Caruso Norma MD; Flaco Garces.GreggCMP STAT 13:06 04/23/2020 13:07 Yash Caruso Norma MD; Flaco Garces.GreggLactic Acid STAT 13:06 04/23/2020 13:07 Yash Caruso Norma MD; Flaco GranadosLipase STAT 13:06 04/23/2020 13:07 Yash Caruso Norma MD; Flaco GranadosClostridium Difficile STAT 15:13 04/23/2020 15:33 Shady,Toxin Brittany Berrios MD; Flaco Garces.GreggStool WBCS STAT 15:13 04/23/2020 15:33 Yash Caruso Norma MD; Flaco R.GreggDIAGNOSTIC STUDY ORDERSOrder Description Priority Entered Acknowledged InitialedMEDICATION/IV/DRIP/FLUID ORDERSOrder Description Priority Entered Acknowledged InitialedIV NS 1000 mL 13:06 04/23/2020 13:46 Shady,Bolus : Bolus 1000 Brittany Berrios MD; Flaco R.NArnoldmL (X1)Zofran IVP 4 mg 13:06 04/23/2020 13:47 Yash Caruso Norma MD; Flaco R.NArnoldlevoFLOXacin IVPB 15:14 04/23/2020 15:30 Elizabeth Fuentes750 mg/150 mL Brittany Berrios MD; R.N.(NOW x1) Reason for ordering with alerts: Benefits outweigh risks -- 15:14 04/23/2020 Brittany Berrios MDGENERAL ORDERSOrder Description Priority Entered Acknowledged Initialed [address] [facility] Emergency Department [address] [place] [address] Phone #: ext- [phone] 04/23/2020 12:05 Patient: BRITNEY JUAREZ Sex: F : 1950 Age: 69 y[Electronically signed by Flaco Caruso R.N. (17:14 04/23/2020)][Electronically signed by Brittany Berrios MD (09:21 04/24/2020)][Electronically locked by Flaco Caruso R.N. (17:14 04/23/2020)] Name Value Range Interpretation Code Description Data Theresa rce(s) Supporting Document(s) ID Date Data Source [id number] 04/23/2020 12:10:[address] [facility] [address] [facility] Emergency Department [address] [place] [address] Phone #: ext- [phone] 04/23/2020 12:05 Patient: BRITNEY JUAREZ Sex: F : 1950 Age: 69yWeight: 68.0 kgHeight/Length: 62 in.BMI: 27.4ALLERGIES: Ambien, Fenofibrate, Lunesta, NSAIDs, TramadolThe patient's Home Medications are listed below:THE FOLLOWING MEDICATIONS NEED TO BE RECONCILED: Atorvastatin Calcium Oral (10 mg) 1 tablet, daily, at bedtime Metoprolol Tartrate Oral (100 mg) 1 tablet, daily Takes something for her nerves does not know name Tension Headache Oral (500-65 mg) 2 tablets, prn traZODone HCl Oral 50 mg, daily, at bedtime Zofran ODT OralThe source(s) of the original Home Medication information:Not obtained.The following Medications were given to the patient in the Emergency Department:NS [IV] IV Fluids bolus 0, then 1500 mL/hr, administered: 04/23/2020 1:31:00 PMZofran [IVP] IVP 4 mg, administered: 04/23/2020 1:37:00 PMLevofloxacin [PO] PO 750 mg, administered: 04/23/2020 3:30:00 PMThe following Medications were prescribed to the patient:None. Name Value Range Interpretation Code Description Data Theresa rce(s) Supporting Document(s) ID Date Data Source [id number] 04/23/2020 12:10:[address] [facility] [address] [facility] Emergency Department [address] [place] [address] Phone #: ext- [phone] 04/23/2020 12:05 Patient: BRITNEY JUAREZ Sex: F : 1950 Age: 69yWeight: 68.0 kgHeight/Length: 62 inBMI: 27.4ALLERGIES: Ambien, Fenofibrate, Lunesta, NSAIDs, Tramadol Date/Time Medication Administered Medication OrderedStart NS [IV] IV NS 1000 mL Bolus : Bolus 162644:[id number] 04/23/2020 Dose: IV Fluids mL (X1)Flaco Caruso RArnoldNArnold Rate: 1500 mL/hr over 40 minute(s)---- Dispensed: 1000 mL bagStop Site: #1 right AC15:33 04/23/2020SoFlaco howell R.N.Given ZOFRAN [IVP] (ONDANSETRON HCL) Zofran IVP 4 mg13:37 04/23/2020 Dose: 4 mg IVPSFlaco yoder R.N. Site: #1 right ACGiven LEVOFLOXACIN [PO] levoFLOXacin IVPB 750 mg/44545:30 04/23/2020 Dose: 750 mg Solution/Elixir PO mL (NOW x1)Elizabeth Fuentes RNeris Name Value Range Interpretation Code Description Data Theresa rce(s) Supporting Document(s) ID Date Data Source [id number] 04/23/2020 12:10:[address] [facility] [address] [facility] Emergency Department [address] [place] [address] Phone #: ext- [phone] 04/23/2020 12:05 Patient: BRITNEY JUAREZ Sex: F : 1950 Age: 69yNausea No mild nausea.Diarrhea.Moderate dehydration. No mild dehydration.Mild thrombocytopenia.(Electronically signed by Brittany Berrios MD 04/24/2020 09:21) Name Value Range Interpretation Code Description Data Theresa rce(s) Supporting Document(s) ID Date Data Source [id number] 04/23/2020 12:10:[address] [facility] 1 Clinical Report - Nurses [facility] Emergency Department [address] [place] [address] Phone #: ext [phone] 04/23/2020 12:05 Patient: BRITNEY JUAREZ Sex: F : 1950 Age: 69yTRIAGE( here on seen for weakness and vomit dx with gastroenteritis, today more loose stool, states shesees blood on toilet paper when she wipes thinks it is hemorrhoids, stomach muscles hurt from vomit).Acuity: LEVEL 3.Chief Complaint: ABDOMINAL PAIN, VOMITING and DIARRHE A.Alert. No acute distress.Onset. (). 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 Sepsis Screen negative. No suspected or confirmed signs ofinfection present. --12:19 04/23/20 Elizabeth Fuentes R.N.12:04/23/20. HR: 87. RR: 18. O2 saturation: 95% on room air. Temp: 100.1 F (oral). Pain level now:01/14. --12:19 04/23/20 Elizabeth Fuentes R.N.12:19 04/23/20. BP: 115/75. MAP: 88. --12:04/23/20 Elizabeth Fuentes R.N.Weight: 68 kg stated. Height/Length: 62 inches Per Patient. BMI: 27.4. --12:08 04/23/20 Elizabeth Fuentes R.N.MedicationsAtorvastatin Calcium Oral (Tablet 10 mg) 1 tablet, daily at bedtime. Metoprolol Tartrate Oral (Tablet 100 mg) 1 tablet, daily. Takes something for her nerves does not know name. Tension Headache Oral (Tablet 500-65 mg) 2 tablets, as needed. traZODone HCl Oral 50 mg, daily at bedtime. --12:18 04/23/20 Elizabeth Fuentes R.N. Zofran ODT Oral. --12:18 04/23/20 Elizabeth Fuentes R.N.AllergiesAmbien. (HALLUCINATIONS)Fenofibra te. (MAKES SKIN PEEL)Lunesta. (HALLUCINATIONS)NSAIDs.(itching)Tramadol. (HALLUCINATIONS) --12:18 04/23/20 Elizabeth Fuentes R.N.PROBLEMS:Dehydration.Coronary Artery Disease. 2 Clinical Report - Nurses [facility] Emergency Department [address] [place] [address] Phone #: ext- [phone] 04/23/2020 12:05 Patient: BRITNEY JUAREZ Acc t#: [id number] Sex: F : 1950 Age: 69yDiverticulitis.Diarrhea.COPD - Chronic Obstructive Pulmonary Disease.Aortic Aneurysm.Abdominal Pain.Common Iliac Aneurysms, B/L.Arthr itis.Hypertension.Hyperlipidemia.Peptic Ulcer Disease.Hypertension.Hypercholesterolemia.Gastroenteritis.Gastritis.Heart Disease.Gastroesophageal Reflux Disease. --12:04/23/20 Elizabeth Fuentes R.N.ADDITIO NAL SURGERIES:Aortic anuerysm stent placed.Bilateral Tubal Ligation.Cardiac Bypass.Cholecystectomy.L wrist fx repair.Right wrist fx repair.Sigmoid resection.Tonsillectomy Adenoidectomy. --12:04/23/20 Elizabeth Fuentes R.N.HistoryPAST MEDICAL HX: Immunizations: up-to-date. The patient is post- menopausal.SOCIAL HX: Smoker- current status unknown (quit 6 years ago). No alcohol use or drug use. No recenttravel. No known contact with a sick individual. She was offered HIV testing but declined and hepatitis Ctesting but declined. She has not traveled outside the [place]Infectious disease exposure: Patient is not a known carrier of tuberculosis, hepatitis, HIV, MRSA or VRE.Patient is not a known carrier of CRE.SELF HARM ASSESSMENT: Self harm assessment was performed. The patient answered "no" to thequestion(s) "Have you recently felt down, depressed, or hopeless?", "Do you have thoughts of harming orkilling yourself?", "Do you have a plan for harming or killing yourself?", "Have you recently had thoughtsabout harming or killing others?", "Do you have any dangerous items in your possession?", "Have younoticed less interest or pleasure in doing things?", "Are you here because you tried to hurt yourself?" and"Have you ever tried to hurt yourself before today?".ABUSE ASSESSMENT: Abuse assessment. Abuse denied. No suspicion of abuse. No report of abuse. 3 Clinical Report - Nurs [facility] Emergency Department [address] [place] [address] Phone #: [phone]- [phone] 04/23/2020 12:05 [id number] Sex: [facility] : 1950 Age: 69y NUTRITIONAL RISK ASSESSMENT: The nutritional risk assessment revealed no deficiencies. FUNCTIONAL ASSESSMENT: Functional assessment: no impairments noted. LEARNING NEEDS ASSESSMENT: The learning needs assessment revealed no barriers. FALL RISK ASSESSMENT: Fall risk assessment completed. No risk factors identified. SKIN INTEGRITY ASSESSMENT: Skin integrity risk assessment completed. No skin integrity risk identified. --12:04/23/20 Elizabeth Fuentes R.N. Interventions Identification band on patient. To treatment room. --12:04/23/20 Elizabeth Fuentes R.N.PHYSICAL [id number]:04/23/20. To room via stretcher.GENERAL / NEURO / PSYCH: Alert. Oriented X 4. Appears in no acute distress.HEENT: Mucous membranes are pink.RESPIRATORY: Respirations not labored. Breath sounds within normal limits.CVS: Capillary refill less than 2 seconds.GI / : Abdomen soft and nontender. Bowel sounds within normal limits.SKIN: Skin is warm and dry. --12:04/23/20 Flaco Caruso R.N.NURSING PROGRESS NOTESPatient gowned. Reassurance given. Two patient identifiers checked. Call light placed in reach. Siderails up x 2. Bed placed in lowest position. Brakes of bed on. Patient ready for evaluation- ED physicianjuve PABON notified. --12:19 04/23/20 Elizabeth Fuentes R.N. 13:21 04/23/2020 Site #1 started via IV in the right antecubital space with an 20g angiocath, with aseptic technique and good blood return; one attempt. Blood drawn: rainbow set. Labeled in the presence of the patient and sent to the lab. Saline lock flushed with 10 mL saline. --13:46 04/23/20 Flaco Caruso R.N. 13:31 04/23/2020 Started bag #1 1000 mL IV Fluids NS; at 1500 mL/hr over 40 minute(s) via site #1 via IV pump. Allergies verified and confirmed 5 rights. IV patency established. IV site checked: no pain, redness, or swelling. IV flushed thoroughly pre- and post-medication administration. Information reviewed with patient including reason for taking this medication, signs of allergic reaction and precautions. Verbalizes understanding. --13:46 04/23/20 Flaco Caruso R.N. 13:37 04/23/2020 Zofran (Ondansetron HCl) IVP 4 mg given over 2 minute(s) via site #1. Allergies verified and confirmed 5 rights. IV patency established. IV site checked: no pain, redness, or swelling. IV flushed thoroughly pre- and post-medication administration. IVP given by RN. Information reviewed with patient including reason for taking this medication, signs of allergic reaction and precautions. Verbalizes understanding. --13:47 04/23/20 Flaco Caruso R.N. 4 Clinical Report - Nurses [facility] Emergency Department [address] [place] [address] Phone #: [phone]- [phone] 04/23/2020 12:05 Patient: BRITNEY JUAREZ Sex: F : 1950 Age: 69y 13:57 04/23/20. Reassurance given. Reassessment acuity: LEVEL 3. Reassessment after medication administered. No adverse reaction. Nausea gone now. She reports no complaints and she is calm and resting quietly. Overall patient status is improved- she states feels better. GI / : Denies abdominal pain, nausea or diarrhea. SKIN: Skin is warm and dry. Skin color within normal limits. Call light placed in reach. Side rails up x 2. Bed placed in lowest position. Brakes of bed on. --14:23 04/23/20 Flaco Caruso R.N. 14:00 04/23/20. BP: 129/67. MAP: 87. HR: 87. RR: 16. O2 saturation: 97%. Pain level now: 0/10. --14:23 04/23/20 Flaco Caruso R.N. 15:30 04/23/2020 Levofloxacin PO Solution/Elixir 750 mg given. Allergies verified and confirmed 5 rights. Information reviewed with patient including reason for taking this medication, signs of allergic reaction and precautions. Verbalizes understanding. --15:30 04/23/20 Elizabeth Fuentes R.N. 15:33 04/23/2020 IV Fluids NS via IV site #1 Discontinued: bag #1 completed. Total amount infused: 1000 mL. --15:33 04/23/20 Flaco Caruso R.N. 15:48 04/23/20. Reassurance given. Reassessment acuity: LEVEL 3. The patient is calm and resting quietly and has had no adverse reaction . Overall patient status is improved- she states feels better. SKIN: Skin is warm and dry. Skin color within normal limits. Two patient identifiers checked. Call light placed in reach. Side rails up x 2. Bed placed in lowest position. Brakes of bed on. --15:48 04/23/20 Flaco Caruso R.N.DISPOSITION / DISCHARGE 16:38 04/23/20. Departure time: 16:50 04/23/2020. Transported via stretcher by nurse with monitor. --17:03 04/23/20 Flaco Caruso R.N. 16:40 04/23/2020 Site #[address] upon admission; patent, no pain and no signs of infection or infiltration. Good blood return present. Flushed with 10 mL saline; flushes easily. --16:40 04/23/20 Flaco Caruso R.N. 16:40 04/23/20. Condition at departure: improved and stable. The goals identified in the patient's plan of care were met. Fall risk assessment completed. Risk factors identified include patient age greater than 65 years. --16:41 04/23/20 Flaco Caruso R.N. 16:40 04/23/20. BP: 98/74. MAP: 82. HR: 91. RR: 16. O2 saturation: 94% on room air. T emp: 99.4 F. Pain level now: 0/10. --16:41 04/23/20 Flaco Caruso R.N. Departure time: 16:42 04/23/2020. --16:42 04/23/20 Sorbero, Flaco, R.N. 5 Clinical Report - Nurses [facility] Emergency Department [address] [place] [address] Phone #: ext- [phone] 04/23/2020 12:05 -- Patient: BRITNEY JUAREZ Sex: F : 1950 Age: 69yLocked/Released at 04/23/2020 17:14 by Flaco Caruso R.N. Name Value Range Interpretation Code Description Data Theresa rce(s) Supporting Document(s) ID Date Data Source [id number] 04/23/2020 12:10:[address] [facility] 1 Clinical Report - Physicians/Mid Levels [facility] Emergency Department [address] [place] [address] Phone #: ext [phone] 04/23/2020 12:05 Patient: BRITNEY JUAREZ Sex: F : 1950 Age: 69y Historian- patient. Disposition decision: 15:16 04/23/2020.HISTORY OF PRESENT ILLNESS Chief Complaint: ( here on seen for weakness and vomit dx with gastroenteritis, today more loose stool, states she sees blood on toilet paper when she wipes thinks it is hemorrhoids, stomach muscles hurt from vomit). Is still present. The patient has had loss of appetite, fatigue, decreased urine output and weakness. No weight loss, headache, visual disturbance or muscle aches. Similar symptoms previously. None. Recent medical care: Not recently seen/assessed.REVIEW OF SYSTEMSNo fever, sore throat, cough, chest pain or chills. No difficulty with urination, skin rash, back pain, calf painor headache. No blackouts or double vision. She has had abdominal pain, nausea, vomiting anddiarrhea. No difficulty with ambulation.PAST HISTORYSee nurses notes. Problems: Dehydration. Coronary Artery Disease. Diverticulitis. Diarrhea. COPD - Chronic Obstructive Pulmonary Disease. Aortic Aneurysm. Abdominal Pain. Common Iliac Aneurysms, B/L. Arthritis. Hypertension. Hyperlipidemia. Peptic Ulcer Disease. Hypertension. Hypercholesterolemia. Gastroenteritis. Gastritis. Heart Disease. Gastroesophageal Reflux Disease. Additional Surgeries: 2 Clinical Report - Physicians/Mid Levels [facility] Emergency Department [address] [place] [address] Phone #: ext- [phone] 04/23/2020 12:05 Patient: BRITNEY JUAREZ Sex: F : 1950 Age: 69y Aortic anuerysm stent placed. Bilateral Tubal Ligation. Cardiac Bypass. Cholecystectomy. L wrist fx repair. Right wrist fx repair. Sigmoid resection. Tonsillectomy Adenoidectomy. Medications: Zofran ODT Oral. Atorvastatin Calcium Oral (Tablet 10 mg) 1 tablet, daily at bedtime. Metoprolol Tartrate Oral (Tablet 100 mg) 1 tablet, daily. Takes something for her nerves does not know name. Tension Headache Oral (Tablet 500-65 mg) 2 tablets, as needed. traZODone HCl Oral 50 mg, daily at bedtime. Allergies: Ambien. (HALLUCINATIONS) Fenofibrate. (MAKES SKIN PEEL) Lunesta. (HALLUCINATIONS) NSAIDs.(itching) Tramadol. (HALLUCINATIONS).SOCIAL HISTORYNo alcohol use or drug use.ADDITIONAL NOTESThe nursing notes have been reviewed.PHYSICAL EXAMVital Signs: 04/23/2020 16:40 BP: 98/74. MAP: 82. HR: 91. RR: 16. O2 saturation: 94% on room air.Temp: 99.4 F. Pain level now: 0/10.04/23/2020 14:00 BP: 129/67. MAP: 87. HR: 87. RR: 16. O2 saturation: 97%. Pain level now: 0/10.04/23/2020 12:19 BP: 115/75. MAP: 88.04/23/2020 12:09 HR: 87. RR: 18. O2 saturation: 95% on room air. Temp: 100.1 F. Pain level now: 01/14.Have been reviewed and appear to be correct. Hypotensive. Mean arterial pressure- normal. Heart ratenormal. Respiratory rate normal. Temperature normal. Oxygen saturation normal.Appearance: Alert. No acute distress.Eyes: Pupils equal, round and reactive to light. Eyes normal inspection.ENT: Ears normal. Nose normal. Dry mucous membranes present.Neck: Normal inspection. Neck supple.CVS: Normal heart rate and rhythm. Heart sounds normal. Pulses normal.Respiratory: No respiratory distress. Painless inspiration. Breath sounds normal. Chest nontender.Abdomen: No visible injury. Soft. Mild tenderness diffusely. No mass. 3 Clinical Report - Physicians/[facility] Emergency Department [address] [place] [address] Phone #: ext- [phone] 04/23/2020 12:05 Patient: BRITNEY JUAREZ Sex: F : 1950 Age: 69yBack: No CVA tenderness.Skin: Skin warm and dry. No rash. Pallor.Extremities: Extremities exhibit normal ROM. No lower extremity edema.Neuro: Oriented X 3. No motor deficit. No sensory deficit.LABS, X-RAYS, AND EKGLaboratory Tests:CBC w Diff: (MINDY: 04/23/2020 13:14) ( MsgRcvd 04/23/2020 13:32) Final results Test Result Flag Units (Reference) CBC W/AUTOMATED DIFF COMPLETE BLOOD COUNT WBC 11.7 H 10/uL (4.2 - 11.0) RBC 3.09 L 10/uL (4.20 - 5.40) HEMOGLOBIN 12.0 g/dL (12.0 - 16.0) HEMATOCRIT 34.2 L % (37.0 - 47.0) MCV 110.7 H fL (81.0 - 101) MCH 38.8 H pg (27.0 - 34.0) MCHC 35.1 g/dL (31.0 - 36.0) RDW 15.8 H % (11.5 - 14.5) PLATELETS 71 L 10/uL (150 - 450) MPV 11.1 H fL (7.4 - 10.4) NEUT 86.4 H % (37.0 - 80.0) LYMPH 8.5 L % (25.0 - 40.0) MONO 3.1 % (3.0 - 8.0) EOS 0.6 % (0.0 - 7.0) BASO 0.1 % (0.0 - 2.5) %IG 1.3 H % (0.0 - 0.0) %NRBC 0.2 H % (0.0 - 0.0) #NEUT 10.12 H 10/uL (2.00 - 6.90) #LYMPH 0.99 10/uL (0.60 - 3.40) #MONO 0.36 10/uL (0.00 - 0.90) #EOS 0.07 10/uL (0.00 - 0.70) #BASO 0.01 10/uL (0.00 - 0.20) #IG 0.15 H 10/uL (0.00 - 0.10) #NRBC 0.02 H 10/uL (0.00 - 0.00) MANUAL DIFF NOT INDICATED RBC MORPH NOT INDICATEDCMP: (MINDY: 04/23/2020 13:14) ( MsgRcvd 04/23/2020 13:52) Final results Test Result Flag Units (Reference) COMPREHENSIVE METABOLIC PANEL COMPREHENSIVE METABOLIC PANEL SODIUM 138 mEq/L (134 - 153) POTASSIUM 3.2 L mEq/L (3.6 - 5.0) CHLORIDE 98 mEq/L (98 - 107) CO2 30 MEQ/L (22 - 30) GLUCOSE 130 H MG/DL (65 - 110) BUN 21 MG/DL (7 - 21) CREATININE 0.9 MG/DL (0.7 - 1.5) BUN/CREAT 23 (8 - 27) TOTAL PROTEIN 5.9 L G/DL (6.3 - 8.2) ALBUMIN 4.0 G/DL (3.9 - 5.0) GLOBULIN 1.9 L GM/DL (2.4 - 3.2) A/G RATIO 2.1 H (0.8 - 2.0) CALCIUM 9.0 MG/DL (8.4 - 10.2) 4 Clinical Report - Physicians/Mid Levels [facility] Emergency Department [address] [place] [address] Phone #: ext- [phone] 04/23/2020 12:05 Patient: BRITNEY JUAREZ Sex: F : 1950 Age: 69y TOTAL BILI 2.3 H MG/DL (0.2 - 1.3) ALKALINE PHOS 125 U/L (38 - 126) SGOT/AST 57 H U/L (5 - 40) SGPT/ALT 153 H U/L (7 - 56) ANION GAP 10.0 mmol/L (8.0 - 16.0) AGE 69 yrs NON-AA GFR >60 mL/min AFR AMER GFR >60 Male GFR Interprentation 20-49 yrs >60 mL/min Normal 50-59 yrs >56 mL/min Normal 60-69 yrs >49 mL/min Normal 70-79yrs >42 mL/min Normal 80 and above >35 mL/min Normal Female GFR Interpretation 20-39 yrs >60 mL/min Normal 40-49 yrs >58 mL/min Normal 50-59 yrs >51 mL/min Normal 60-69 yrs >45 mL/min Normal 70-79 yrs >39 mL/min Normal 80 and above >32 mL/min Normal Lactic Acid: (MINDY: 04/23/2020 13:14) ( MsgRcvd 04/23/2020 13:44) Final results Test Result Flag Units (Reference) LACTIC ACID 2.4 H MMOL/L (0.2 - 2.2) Lipase: (MINDY: 04/23/2020 13:14) ( MsgRcvd 04/23/2020 13:52) Final results Test Result Flag Units (Reference) LIPASE 50 U/L (13 - 60).PROGRESS AND PROCEDURESCourse of Care: this is pt's 2nd visit to the ED for evaluation of her vomiting and diarrhea. she hasthrombocytopenia and she is mildly dehydrated. she lives by herself. I think she would benefit fromobservation, continued dehydration and repeat labs to determine if her thrombocytopenia will resolve or if itis going to get worse. pt comfortable with plan to admit. I spoke with Uri. he agreed to admit. Patient/family counseled. Disposition: Admitted to the Acute Inpatient Unit. UTI (catheter associated) was not present prior to admission. Vascular infection (catheter associated) was not present prior to admission. Surgical site infection was not present prior to admission. Blood incompatibility was not present prior to admission. Air embolism was not present prior to admission. Condition: good and stable.CLINICAL IMPRESSION Nausea No mild nausea. Diarrhea. Moderate dehydration. No mild dehydration. Mild thrombocytopenia. 5 Clinical Report - Physicians/Mid Levels [facility] Emergency Department [address] [place] [address] Phone #: ext- [phone] 04/23/2020 12:05 Patient: BRITNEY JUAREZ Sex: F : 1950 Age: 69y(Electronically signed by Brittany Berrios MD 04/24/2020 09:21) Name Value Range Interpretation Code Description Data Theresa rce(s) Supporting Document(s) ID Date Data Source [id number] 04/21/2020 09:17:[address] [facility] [address] [facility] Emergency Department [address] [place] [address] Phone #: ext- [phone] 04/21/2020 09:17 Patient: BRITNEY JUAREZ Sex: F : 1950 Age: 69yWEIGHT:68.0 kg (S) HEIGHT:63 inches (S) BMI:26.6ALLERGIES: Ambien, Fenofibrate, Lunesta, NSAIDs, TramadolCHIEF COMPLAINT: abdominal painDIAGNOSIS: O/E - dehydrated, GastroenteritisLAB ORDERSOrder Description Priority Entered Acknowledged InitialedCBC w Diff STAT 09:39 04/21/2020 09:40 Brittany Lainez MD; Juan RNCMP STAT 09:39 04/21/2020 09:40 Brittany Lainez MD; Juan RNLipase STAT 09:39 04/21/2020 09:40 Brittany Lainez MD; Juan RNMagnesium STAT 09:39 04/21/2020 09:40 Brittany Lainez MD; Juan CARSONUrinalysis (Clean STAT 09:39 04/21/2020 13:50 TerryCatch) Brittany Berrios MD; Juan RNTroponin-T STAT 09:39 04/21/2020 09:40 Brittany Lainez MD; Juan RNDIAGNOSTIC STUDY ORDERSOrder Description Priority Entered Acknowledged InitialedUS Gall Bladder STAT 12:27 04/21/2020 Initialed: 12:27 Brittany Berrios MD(Oxygen?(No)) Brittany Berrios MD; Cancelled: Physician Order 12:27 Brittany Berrios MD Reason for Study: RUQ PainCT ABD PEL W/O STAT 12:28 04/21/2020 12:30 TerryOral W/O IV Brittany Berrios MD; Juan CARSONContrast(Oxygen?(No))(IV?(Yes)) Reason for Study: Abdominal PainMEDICATION/IV/DRIP/FLUID ORDERSOrder Description Priority Entered Acknowledged InitialedIV NS 500 mL Bolus 09:39 04/21/2020 09:56 Fransisco: Bolus 500 mL (X1) Brittany Berrios MD; Juan RNZofran IVP 4 mg 09:39 04/21/2020 09:56 [place] [address] [facility] Emergency Department [address] [place] [address] Phone #: ext- [phone] 04/21/2020 09:17 Patient: BRITNEY JUAREZ Sex: F : 1950 Age: 69y Brittany Berrios MD; Juan CARSONIV NS 500 mL Bolus 12:28 04/21/2020 12:42 Fransisco: Bolus 500 mL (X1) Brittany Berrios MD; Juan RNGENERAL ORDERSOrder Description Priority Entered Acknowledged InitialedEK 09:39 04/21/2020 09:40 Brittany Lainez MD; Juan RN[Electronically signed by Fransisco Martinez RN (16:39 04/21/2020)][Electronically signed by Brittany Berrios MD (07:58 04/24/2020)][Electronically locked by Fransisco Martinez RN (16:39 04/21/2020)] Name Value Range Interpretation Code Description Data Theresa rce(s) Supporting Document(s) ID Date Data Source [id number] 04/21/2020 09:17:[address] [facility] [address] [facility] Emergency Department [address] [place] [address] Phone #: ext- [phone] 04/21/2020 09:17 Patient: BRITNEY JUAREZ Sex: F : 1950 Age: 69yWeight: 68.0 kgHeight/Length: 63 in.BMI: 26.6ALLERGIES: Ambien, Fenofibrate, Lunesta, NSAIDs, TramadolThe patient's Home Medications are listed below:CONTINUE TAKING THE FOLLOWING MEDICATIONS: Atorvastatin Calcium Oral (10 mg) 1 tablet, daily, at bedtime Metoprolol Tartrate Oral (100 mg) 1 tablet, daily Takes something for her nerves does not know name Tension Headache Oral (500-65 mg) 2 tablets, prn traZODone HCl Oral 50 mg, daily, at bedtimeThe source(s) of the original Home Medication information:Not obtained.The following Medications were given to the patient in the Emergency Department:normal saline IV Fluids bolus 0, then 500 cc bolus, administered: 04/21/2020 9:55:00 AMZofran [IVP] IVP 4 mg, administered: 04/21/2020 9:56:00 AMnormal saline IV Fluids bolus 0, then 500 cc bolus, administered: 04/21/2020 12:42:00 PMThe following Medications were prescribed to the patient:Zofran (orally disintegrating tablets) 4 mg: take 1 orally as needed for nausea and vomiting. Dispensetwenty (20). No refill. Substitution is permissible. -- Brittany Berrios MD Name Value Range Interpretation Code Description Data Theresa rce(s) Supporting Document(s) ID Date Data Source [id number] 04/21/2020 09:17:[address] [facility] [address] [facility] Emergency Department [address] [place] [address] Phone #: ext- [phone] 04/21/2020 09:17 Patient: BRITNEY JUAREZ Sex: F : 1950 Age: 69yWeight: 68.0 kgHeight/Length: 63 inBMI: 26.6ALLERGIES: Ambien, Fenofibrate, Lunesta, NSAIDs, Tramadol Date/Time Medication Administered Medication OrderedStart normal saline * IV NS 500 mL Bolus : Bolus 19762:55 04/21/2020 Dose: 500 cc bolus * IV Fluids mL (X1)Fransisco Martinez RN----Stop10:23 04/21/2020Fransisco Martinez RNGiven ZOFRAN [IVP] (ONDANSETRON HCL) Zofran IVP 4 mg09:56 04/21/2020 Dose: 4 mg IVPTfortunato Martinez RN Site: #1 left ACStart normal saline * IV NS 500 mL Bolus : Bolus 28791:42 04/21/2020 Dose: 500 cc bolus * IV Fluids mL (X1)Fransisco Martinez RN----Stop13:08 04/21/2020Fransisco Martinez RN Name Value Range Interpretation Code Description Data Theresa rce(s) Supporting Document(s) ID Date Data Source [id number] 04/21/2020 09:17:[address] [facility] [address] [facility] Emergency Department [address] [place] [address] Phone #: ext- [phone] 04/21/2020 09:17 Patient: BRITNEY JUAREZ Sex: F : 1950 Age: 69yMild dehydrationNoninfectious gastroenteritis with dehydration.INSTRUCTIONSStrenuous activity allowed.Drink plenty of fluids.(Return if worse or any new symptoms. You need repeat labs. You need repeat Liver Function Tests.they were slightly elevated. your sugar was also slightly elevated. please discuss with your doctor. Ifyou are unable to follow up with your doctor, return to the ED for further evaluation and repeat labs ifnecessary.).Warnings: Further evaluation is necessary.GENERAL WARNINGS: Return or contact your physician immediately if your condition worsens orchanges unexpectedly, if not improving as expected, or if other problems arise.Your Current Medications: Your current home medications have been reviewed.CONTINUE TAKING THE FOLLOWING MEDICATIONS:Atorvastatin Calcium Oral : Tablet 10 mg, 1 tablet daily, at bedtime.Metoprolol Tartrate Oral : Tablet 100 mg, 1 tablet daily.Takes something for her nerves does not know name*.Tension Headache Oral : Tablet 500-65 mg, 2 tablets, prn.traZODone HCl Oral : 50 mg daily, at bedtime.Prescription Medications:Zofran (orally disintegrating tablets) 4 mg: take 1 orally as needed for nausea and vomiting. Dispensetwenty (20). No refill. Substitution is permissible.Follow-up:Follow up with your doctor tomorrow even if well. Call for an appointment. Reason for referral: evaluation.Summary of care provided to patient via paper.Understanding of the discharge instructions verbalized. Understanding of the discharge instructions notverbalized by patient. ADDITIONAL INFORMATION [address] [facility] Emergency Department [address] [place] [address] Phone #: ext- [phone] 04/21/2020 09:17 Patient: BRITNEY JUAREZ Sex: F : 01/1950 Age: 69yViral Gastroenteritis (Adult)Gastroenteritis is commonly called the "stomach flu," although it has nothing to do with influenza. It ismost often caused by a virus that affects the stomach and intestinal tract and usually lasts from 2 to 7days. Common viruses causing gastroenteritis include norovirus, rotavirus, and hepatitis A. Non-viralcauses of gastroenteritis include bacte sona, parasites, and toxins.The danger from repeated vomiting or diarrhea is dehydration. This is the loss of too much fluid fromthe body. When this occurs, body fluids must be replaced. Antibiotics don't help with this illnessbecause it is usually viral. Simple home treatment will be helpful.Symptoms of viral gastroenteritis may include: Watery, loose stools Stomach pain or abdominal cramps Fever and chills Nausea and vomiting Loss of bowel control [address] [facility] Emergency Department [address] [place] [address] Phone #: ext- [phone] 04/21/2020 09:17 Patient: BRITNEY JUAREZ Sex: F : 1950 Age: 69y HeadacheHome careGastroenteritis is transmitted by contact with the stool or vomit of an infected person. This can occurfrom person to person or from contact with a contaminated surface.Follow these guidelines when caring for yourself at home: If symptoms are severe, rest at home for the next 24 hours or until you are feeling better. Wash your hands with soap and water or use alcohol-based sheet rock applicator to prevent the spread of infection. Wash your hands after touching anyone who is sick. Wash your hands or use alcohol-based sheet rock applicator after using the toilet and before meals. Clean the toilet after each use.Remember these tips when preparing food: People with diarrhea should not prepare or serve food to others. When preparing foods, wash your hands before and after. Wash your hands after using cutting boards, countertops, knives, or utensils that have been in contact with raw food. Dry your hands with a single use towel. Keep uncooked meats away from cooked and zlikx-ro-ihf foods.MedicineYou may use acetaminophen or NSAID medicines like ibuprofen or naproxen to control fever unlessanother medicine was given. If you have chronic liver or kidney disease, talk with your healthcareprovider before using these medicines. Also talk with your provider if you've had a stomach ulceror gastrointestinal bleeding. Don't give aspirin to anyone under 18 years of age who is ill with a fever.It may cause severe liver damage. Don't use NSAIDS is you are already taking one for anothercondition (like arthritis) or are on aspirin (such as for heart disease or after a stroke).If medicine for vomiting or diarrhea are prescribed, take these only as directed. Nausea and diarrheamedicines are generally OK unless you have bleeding, fever, or severe abdominal pain.DietFollow these guidelines for food: Water and liquids are important so you don't get dehydrated. Drink a small amount at a time or suck on ice chips if you are vomiting. [address] [facility] Emergency Department [address] [place] [address] Phone #: ext- [phone] 04/21/2020 09:17 Patient: BRITNEY JUAREZ Sex: F : 1950 Age: 69y If you eat, avoid fatty, greasy, spicy, or fried foods. Don't eat dairy if you have diarrhea. This can make diarrhea worse. Avoid tobacco, alcohol, and caffeine which may worsen symptoms.During the first 24 hours (the first full day), follow the diet below: Beverages. Sports drinks, soft drinks without caffeine, robert berta, mineral water (plain or flavored), decaffeinated tea and coffee. If you are very dehydrated, sports drinks aren't a good choice. They have too much sugar and not enough electrolytes. In this case, commercially available products called oral rehydration solutions, are best. Soups. Eat clear broth, consomm, and bouillon. Desserts. Eat gelatin, ice pops, and fruit juice bars.During the next 24 hours (the second day), you may add the following to the above: Hot cereal, plain toast, bread, rolls, and crackers Plain noodles, rice, mashed potatoes, chicken noodle or rice soup Unsweetened canned fruit (avoid pineapple), bananas Limit fat intake to less than 15 grams per day. Do this by avoiding margarine, butter, oils, mayonnaise, sauces, gravies, fried foods, peanut butter, meat, poultry, and fish. Limit fiber and avoid raw or cooked vegetables, fresh fruits (except bananas), and bran cereals. Limit caffeine and chocolate. Don't use spices or seasonings other than salt. Limit dairy products. Avoid alcohol.During the next 24 hours: Gradually resume a normal diet as you feel better and your symptoms improve. If at any time it starts getting worse again, go back to clear liquids until you feel better.Follow-up careFollow up with your healthcare provider, or as advised. Call your provider if you don't get better aijjau04 hours or if diarrhea lasts more than a week. Also follow up if you are unable to keep down liquidsand get dehydrated. If a stool (diarrhea) sample was taken, call as directed for the results. [address] [facility] Emergency Department [address] [place] [address] Phone #: ext- [phone] 04/21/2020 09:17 Patient: BRITNEY JUAREZ Sex: F : 1950 Age: 69yCall 911Call 911 if any of these occur: Trouble breathing Chest pain Confused Severe drowsiness or trouble awakening Fainting or loss of consciousness Rapid heart rate Seizure Stiff neckWhen to seek medical adviceCall your healthcare provider right away if any of these occur: Abdominal pain that gets worse Continued vomiting (unable to keep liquids down) Frequent diarrhea (more than 5 times a day) Blood in vomit or stool (black or red color) Dark urine, reduced urine output, or extreme thirst Weakness or dizziness Drowsiness Fever of 100.4F (38C) or higher, or as directed by your healthcare provider [employer] [id number] [employer]. [address] [place] [address], [place] [address]. All rights reserved. This information is not intended as asubstitute for professional medical care. Always follow your healthcare professional's instructions.Dehydration (Adult)Dehydration occurs when your body loses too much fluid. This may be the result of prolongedvomiting or diarrhea, excessive sweating, or a high fever. It may also happen if you don't drinkenough fluid when you're sick or out in the heat. Misuse of diuretics (water pills) can also be a cause. [address] [facility] Emergency Department [address] [place] [address] Phone #: ext- [phone] 04/21/2020 09:17 Patient: BRITNEY JUAREZ Sex: F : 1950 Age: 69ySymptoms include thirst and decreased urine output. You may also feel dizzy, weak, fatigued, or verydrowsy. The diet described below is usually enough to treat dehydration. In some cases, you mayneed medicine.Home care Drink at least 12 8-ounce glasses of fluid every day to resolve the dehydration. Fluid may include water; orange juice; lemonade; apple, grape, or cranberry juice; clear fruit drinks; electrolyte replacement and sports drinks; and teas and coffee without caffeine. Don't drink alcohol. If you have been diagnosed with a kidney disease, ask your doctor how much and what types of fluids you should drink to prevent dehydration. If you have kidney disease, fluid can build up in the body. This can be dangerous to your health. If you have a fever, muscle aches, or a headache as a result of a cold or flu, you may take acetaminophen or ibuprofen, unless another medicine was prescribed. If you have chronic liver or kidney disease, or have ever had a stomach ulcer or gastrointestinal bleeding, talk with your healthcare provider before using these medicines. Don't take aspirin if you are younger than 18 and have a fever. Aspirin raises the chance for severe liver injury.Follow-up careFollow up with your healthcare provider, or as advis ed.When to seek medical adviceCall your healthcare provider right away if any of these occur: Continued vomiting Frequent diarrhea (more than 5 times a day); blood (red or black color) or mucus in diarrhea Blood in vomit or stool Swollen abdomen or increasing abdominal pain Weakness, dizziness, or fainting Unusual drowsiness or confusion Reduced urine output or extreme thirst Fever of 100.4F (38C) or higher [id number] [employer] [place] [address], [place] [address]. All rights reserved. This information is not intended as asubstitute for professional medical care. Always follow your healthcare professional's instructions. [address] [facility] Emergency Department [address] [place] [address] Phone #: ext- [phone] 04/21/2020 09:17 Patient: BRITNEY JAUREZ Sex: F : 1950 Age: 69yDehydration (Adult)Dehydration occurs when your body loses too much fluid. This may be the result of prolongedvomiting or diarrhea, excessive sweating, or a high fever. It may also happen if you don't drinkenough fluid when you're sick or out in the heat. Misuse of diuretics (water pills) can also be a cause.Symptoms include thirst and decreased urine output. You may also feel dizzy, weak, fatigued, or verydrowsy. The diet described below is usually enough to treat dehydration. In some cases, you mayneed medicine.Home care Drink at least 12 8-ounce glasses of fluid every day to resolve the dehydration. Fluid may include water; orange juice; lemonade; apple, grape, or cranberry juice; clear fruit drinks; electrolyte replacement and sports drinks; and teas and coffee without caffeine. Don't drink alcohol. If you have been diagnosed with a kidney disease, ask your doctor how much and what types of fluids you should drink to prevent dehydration. If you have kidney disease, fluid can build up in the body. This can be dangerous to your health. If you have a fever, muscle aches, or a headache as a result of a cold or flu, you may take acetaminophen or ibuprofen, unless another medicine was prescribed. If you have chronic liver or kidney disease, or have ever had a stomach ulcer or gastrointestinal bleeding, talk with your healthcare provider before using these medicines. Don't take aspirin if you are younger than 18 and have a fever. Aspirin raises the chance for severe liver injury.Follow-up careFollow up with your healthcare provider, or as advised.When to seek medical adviceCall your healthcare provider right away if any of these occur: Continued vomiting Frequent diarrhea (more than 5 times a day); blood (red or black color) or mucus in diarrhea Blood in vomit or stool Swollen abdomen or increasing abdominal pain Weakness, dizziness, or fainting Unusual drowsiness or confusion Reduced urine output or extreme thirst [address] [facility] Emergency Department [address] [place] [address] Phone #: ext- [phone] 04/21/2020 09:17 Patient: BRITNEY JUAREZ Sex: F : 1950 Age: 69y Fever of 100.4F (38C) or higher [id number] [employer] [place] [address]. All rights reserved. This information is not intended as asubstitute for professional medical care. Always follow your healthcare professional's instructions.Ondansetron oral dissolving tabletWhat is this medicine?ONDANSETRON (on DEANDRA se aurelio) is used to treat nausea and vomiting caused by chemotherapy. Itis also used to prevent or treat nausea and vomiting after surgery.How should I use this medicine?These tablets are made to dissolve in the mouth. Do not try to push the tablet through the foilbacking. With dry hands, peel away the foil backing and gently remove the tablet. Place the tablet inthe mouth and allow it to dissolve, then swallow. While you may take these tablets with water, it is notnecessary to do so.Talk to your metallurgical engineering teacher regarding the use of this medicine in children. Special care may be needed.What side effects may I notice from receiving this medicine?Side effects that you should report to your doctor or health home health caregiver as soon as possible: allergic reactions like skin rash, itching or hives, swelling of the face, lips, or tongue breathing problems confusion dizziness fast or irregular heartbeat feeling faint or lightheaded, falls fever and chills loss of balance or coordination seizures sweating swelling of the hands and feet tightness in the chest [address] [facility] Emergency Department [address] [place] [address] Phone #: ext- [phone] 04/21/2020 09:17 Patient: BRITNEY JUAREZ Sex: F : 1950 Age: 69y tremors unusually weak or tiredSide effects that usually do not require medical attention (report to your doctor or health careprofessional if they continue or are bothersome): constipation or diarrhea headacheWhat may interact with this medicine?Do not take this medicine with any of the following medications: apomorphine certain medicines for fungal infections like fluconazole, itraconazole, ketoconazole, posaconazole, voriconazole cisapride dofetilide dronedarone pimozide thioridazine ziprasidoneThis medicine may also interact with the following medications: carbamazepine certain medicines for depression, anxiety, or psychotic disturbances fentanyl linezolid MAOIs like Carbex, Eldepryl, Marplan, Nardil, and Parnate methylene blue (injected into a vein) other medicines that prolong the QT interval (cause an abnormal heart rhythm) phenytoin rifampicin [address] [facility] Emergency Department [address] [place] [address] Phone #: pls- [phone] 04/21/2020 09:17 Patient: BRITNEY JUAREZ Sex: F : 1950 Age: 69y tramadolWhat if I miss a dose?If you miss a dose, take it as soon as you can. If it is almost time for your next dose, take only thatdose. Do not take double or extra doses.Where should I keep my medicine?Keep out of the reach of children.Store between 2 and 30 degrees C (36 and 86 degrees F). Throw away any unused medicine afterthe expiration date.What should I tell my health care provider before I take this medicine?They need to know if you have any of these conditions: heart disease history of irregular heartbeat liver disease low levels of magnesium or potassium in the blood an unusual or allergic reaction to ondansetron, granisetron, other medicines, foods, dyes, or preservatives or trying to get breast-feedingWhat should I watch for while using this medicine?Check with your doctor or health home health caregiver as soon as you can if you have any sign of anallergic reaction.NOTE:This sheet is a summary. It may not cover all possible information. If you have questions about this medicine, talk to your doctor, pharmacist, orhealth care provider. Copyright 2019 [employer] You have been given the following additional informa tion: Gastroenteritis, Viral (Adult) [address] [facility] Emergency Department [address] [place] [address] Phone #: ext- [phone] 04/21/2020 09:17 Patient: BRITNEY JUAREZ Sex: F : 1950 Age: 69yDehydration (Adult)Dehydration (Adult)Ondansetron oral dissolving tabletStrenuous activity allowed.(Electronically signed by Brittany Berrios MD 04/24/2020 07:58) Name Value Range Interpretation Code Description Data Theresa rce(s) Supporting Document(s) ID Date Data Source [id number] 04/21/2020 09:17:[address] [facility] 1 Clinical Report - Nurses [facility] Emergency Department [address] [place] [address] Phone #: ext- [phone] 04/21/2020 09:17 Patient: BRITNEY JUAREZ Sex: F : 1950 Age: 69yTRIAGEArrived by EMS. Historian: patient. Unaccompanied.Acuity: LEVEL 3.Chief Complaint: NAUSEA and VOMITING and (muscles in stomach from vomit hurt).Alert. No acute distress.This started yesterday. She has had vomiting (bile). 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 Sepsis Screen negative. No suspected or confirmed signs ofinfection present. --09:04/21/20 Elizabeth Fuentes R.N.09:04/21/20. BP: 188/116 taken on the left arm, while sitting. MAP: 140. HR: 103. RR: 18. X0qmgilotlil: 96% on room air. Temp: 98.2 F (oral). Pain level now: 12/14. --09:29 04/21/20 Elizabeth Fuentes R.N.09:04/21/20. BP: 193/100 taken on the right arm, while sitting. MAP: 131. --09:04/21/20 Elizabeth Fuentes R.N.Weight: 68 kg stated. Height/Length: 63 inches Per Patient. BMI: 26.6. --09:22 04/21/20 Elizabeth Fuentes R.N.MedicationsAtorvastatin Calcium Oral (Tablet 10 mg) 1 tablet, daily at bedtime. Metoprolol Tartrate Oral (Tablet 100 mg) 1 tablet, daily. Tension Headache Oral (Tablet 500-65 mg) 2 tablets, as needed. --09:25 04/21/20 Elizabeth Fuentes R.N. Takes something for her nerves does not know name. --09:26 04/21/20 Elizabeth Fuentes R.N. traZODone HCl Oral 50 mg, daily at bedtime. --09:39 04/21/20 Fransisco Martinez RN.AllergiesAmbien. (HALLUCINATIONS)Fenofibrate. (MAKES SKIN PEEL)Lunesta. (HALLUCINATIONS)NSAIDs.(itching) --09:25 04/21/20 Elizabeth Fuentes R.N.Tramadol. (HALLUCINATIONS) --09:04/21/20 Elizabeth Fuentes R.N.PROBLEMS:Coronary Artery Disease.COPD - Chronic Obstructive Pulmonary Disease. 2 Clinical Report - Nurses [facility] Emergency Department [address] [place] [address] Phone #: ext- [phone] 04/21/2020 09:17 Patient: BRITNEY JUAREZ Sex: F : 1950 Age: 69yDive rticulitis.Diarrhea.Aortic Aneurysm.Abdominal Pain.Common Iliac Aneurysms, B/L.Arthritis.Hypertension.Hyperlipidemia.Peptic Ulcer Disease.Hypertension.Gastroesophageal Reflux Disease.Gastritis.Hyperchol esterolemia.Heart Disease. --09:26 04/21/20 Elizabeth Fuentes R.N.ADDITIONAL SURGERIES:Aortic anuerysm stent placed.Bilateral Tubal Ligation.Cardiac Bypass.Cholecystectomy.L wrist fx repair.Right wrist fx repair.Sigmoid resection.Tonsillectomy Adenoidectomy. --09:27 04/21/20 Elizabeth Fuentes R.N.HistoryPAST MEDICAL HX: Immunizations: up-to-date. The patient is post- menopausal.SOCIAL HX: Smoker- current status unknown (quit 6 years ago). Occasional alcohol use. No drug use.No recent travel. No known contact with a sick individual. She was offered HIV testing but declined andhepatitis C testing but declined. She has not traveled outside the [place]Infectious disease exposure: No infectious disease exposure. Patient is not a known carrier of tuberculosis,hepatitis, HIV, MRSA or VRE. Patient is not a known carrier of CRE.SELF HARM ASSESSMENT: Self harm assessment was performed. The patient answered "no" to thequestion(s) "Have you recently felt down, depressed, or hopeless?", "Do you have thoughts of harming orkilling yourself?", "Do you have a plan for harming or killing yourself?", "Have you recently had thoughtsabout harming or killing others?", "Do you have any dangerous items in your possession?", "Have younoticed less interest or pleasure in doing things?", "Are you here because you tried to hurt yourself?" and"Have you ever tried to hurt yourself before today?".ABUSE ASSESSMENT: Abuse assessment. Abuse denied. No suspicion of abuse. No report of abuse.NUTRITIONAL RISK ASSESSMENT: The nutritional risk assessment revealed no deficiencies. 3 Clinical Report - Nurses [facility] Emergency Department [address] [place] [address] Phone #: ext- [phone] 04/21/2020 09:17 Patient: BRITNEY JUAREZ Sex: F : 1950 Age: 69y FUNCTIONAL ASSESSMENT: Functional assessment: no impairments noted. LEARNING NEEDS ASSESSMENT: The learning needs assessment revealed no barriers. FALL RISK ASSESSMENT: Fall risk assessment completed. No risk factors identified. SKIN INTEGRITY ASSESSMENT: Skin integrity risk assessment completed. No skin integrity risk identified. --09:04/21/20 Elizabeth Fuentes R.N. Interventions Identification band on patient. To treatment room. --09:04/21/20 Elizabeth Fuentes R.N.PHYSICAL HFHSDDILSJ20:38 04/21/20. To room via stretcher.GENERAL / NEURO / PSYCH: Alert. Oriented X 4.RESPIRATORY: Respirations not labored. Breath sounds within normal limits.CVS: Capillary refill less than 2 seconds.GI / : Abdomen soft and nontender. Bowel sounds within normal limits.SKIN: Skin is warm and dry. --09:38 04/21/20 Fransisco Martinez RN.NURSING PROGRESS NOTESPatient gowned. Reassurance given. Two patient identifiers checked. Call light placed in reach. Siderails up x 2. Bed placed in lowest position. Brakes of bed on. Patient ready for evaluation- ED physiciannotified. --09:29 04/21/20 Elizabeth Fuentes R.N. Call light placed in reach. --09:39 04/21/20 Fransisco Martinez RN 09:52 04/21/2020 Site #1 started via IV in the left antecubital space with an 20g angiocath; one attempt. --09:56 04/21/20 Fransisco Martinez RN 09:55 04/21/2020 normal saline * IV Fluids 500 cc bolus --09:56 04/21/20 Fransisco Martinez RN 09:56 04/21/2020 Zofran (Ondansetron HCl) IVP 4 mg given over 30 second(s) via site #1. Allergies verified and confirmed 5 rights. IV patency established. IV site checked: no pain, redness, or swelling. IV flushed thoroughly pre- and post-medication administration. IVP given by RN. Information reviewed with patient. --09:56 04/21/20 Fransisco Martinez RN Cardiac rhythm: normal sinus rhythm; (3751). EKG time: (09:54 04/21/2020). EKG was performed by a respiratory therapist and shown to the ED physician. NSR. Checked patient name and birthdate: patient confirmed. Blood samples drawn from the right antecubital space by tech. ([id number]). --09:57 04/21/20 Fransisco Martinez RN 09 :58 04/21/20. BP: 189/89. MAP: 122. HR: 90. O2 saturation: 94% on room air. --10:00 04/21/20 Fransisco Martinez RN 4 Clinical Report - Nurses [facility] Emergency Department [address] [place] [address] Phone #: ext- [phone] 04/21/2020 09:17 [id number] Sex[facility] F : 1950 Age: 69y 10:23 04/21/2020 Normal saline IV Fluids Discontinued: bag #1 STOPPED. Total amount infused: 500 mL. IV patency established. IV site checked: no pain, redn ess, or swelling. IV flushed thoroughly. --10:23 04/21/20 Fransisco Martinez RN ( 1150 pt c/o being thirsty M D notified and small glass water offered). --11:55 04/21/20 Fransisco Martinez RN 11:30 04/21/20. BP: 172/85. MAP: 114. HR: 86. O2 saturation: 94% on room air. --11:57 04/21/20 Fransisco Martinez RN ( 1200 after 45 cc water pt c/o immediate nausea, water removed). --11:58 04/21/20 Fransisco Martinez RN 11:45 04/21/20. BP: 181/86. MAP: 117. HR: 81. O2 saturation: 94% on room air. --11:58 04/21/20 Fransisco Martinez RN 10:23 04/21/2020 Zofran IVP Response: symptoms have improved the patient feels better. --12:30 04/21/20 Fransisco Martinez RN 12:42 04/21/2020 normal saline * IV Fluids 500 cc bolus --12:42 04/21/20 Fransisco Martinez RN ( 1230 pt states no urge to void). --12:54 04/21/20 Fransisco Martinez RN Patient transported to [place] by wheelchair with arcade technician. ([id number]). --13:05 04/21/20 Fransisco Martinez RN 13:08 04/21/2020 Normal saline IV Fluids Discontinued: bag #1 infused. Total amount infused: 500 mL. IV patency established. IV site checked: no pain, redness, or swelling. IV flushed thoroughly. --13:09 04/21/20 Fransisco Martinez RN Patient returned from CT by wheelchair with arcade technician. ([id number]). --13:16 04/21/20 Fransisco Martinez RN Checked patient name and birthdate: patient confirmed. Clean catch urine collected; sample sent to lab for urinalysis. Specimen labeled in the presence of the patient ([id number]). --13:50 04/21/20 Fransisco Martinez RN 13:46 04/21/20. BP: 185/92. MAP: 123. HR: 93. O2 saturation: 95% on room air. --14:47 04/21/20 Fransisco Martinez RN.DISPOSITION / DISCHARGE 14:37 04/21/20. BP: 139/97. MAP: 111. HR: 66. RR: 18. O2 saturation: 92% on room air. Temp: 98.6 F (oral). Pain level now: 0/10. --14:45 04/21/20 Fransisco Martinez RN 14:40 04/21/2020 Site #1 removed upon discharge. Catheter intact. Bandaid applied. --14:45 04/21/20 Fransisco Martinez RN 5 Clinical Report - Nurses [facility] Emergency Department [address] [place] [address] Phone #: ext- [phone] 04/21/2020 09:17 Patient: BRITNEY JUAREZ Sex: F : 1950 Age: 69y 14:45 04/21/20. Departure time: 14:45 04/21/2020. Condition at departure: improved. No learning barriers present. Reviewed medication(s) side effects, precautions, dosing and course information. Prescription(s) given to the patient. Reviewed rest instructions (increase fluids). Reviewed referrals. Provided to follow-up provider. Patient verbalized understanding. Written instructions provided in [place]an. The patient was discharged by the physician. She was discharged home. She left ambulatory and via private vehicle. [employer] driving. --14:45 04/21/20 Fransisco Martinez RN.Locked/Released at 04/21/2020 16:39 by Fransisco Martinez RN Name Value Range Interpretation Code Description Data Theresa rce(s) Supporting Document(s) ID Date Data Source [id number] 0001 04/21/2020 09:17:[address] [facility] 1 Clinical Report - Physicians/Mid Levels [facility] Emergency Department [address] [place] [address] Phone #: ext- [phone] 04/21/2020 09:17 Patient: BRITNEY JUAREZ Sex: F : 1950 Age: 69y Historian- patient. Disposition decision: 14:23 04/21/2020.HISTORY OF PRESENT ILLNESS Chief Complaint: ABDOMINAL PAIN. It is described as cramping. No radiation. It is described as generalized in location. This started yesterday NAUSEA and VOMITING and (muscles in stomach from vomit hurt). The patient has had nausea, loss of appetite and vomiting. No diarrhea. No additional abdominal pain. No recent travel. Similar symptoms previously. None. Recent medical care: Not recently seen/assessed.REVIEW OF SYSTEMSNo constipation, black stools, hematemesis or difficulty with urination or urination. No pain with urination,urinary frequency or urinary frequency, bloody stools or fever. No headache, sore throat or throat, blurredvision or chest pain. No difficulty breathing, cough, joint pain or skin rash or rash. No chills, back pain orpain, fever or eye irritation. No tinnitus, nasal congestion, cough, abdominal pain or hematuria. Noseizure. The patient has had nausea and vomiting but not had weight loss.PAST HISTORYSee nurses notes. Problems: Coronary Artery Disease. COPD - Chronic Obstructive Pulmonary Disease. Aortic Aneurysm. Common Iliac Aneurysms, B/L. Hypertension. Hyperlipidemia. Peptic Ulcer Disease. Hypertension. Gastroesophageal Reflux Disease. Hypercholesterolemia. Heart Disease. Additional Surgeries: Aortic anuerysm stent placed. Bilateral Tubal Ligation. Cardiac Bypass. 2 Clinical Report - Physicians/Mid Levels [facility] Emergency Department [address] [place] [address] Phone #: ext- [phone] 04/21/2020 09:17 Patient: BRITNEY JUAREZ Sex: F : 1950 Age: 69y Cholecystectomy. L wrist fx repair. Right wrist fx repair. Sigmoid resection. Tonsillectomy Adenoidectomy. Medications: traZODone HCl Oral 50 mg, daily at bedtime. Takes something for her nerves does not know name. Atorvastatin Calcium Oral (Tablet 10 mg) 1 tablet, daily at bedtime. Metoprolol Tartrate Oral (Tablet 100 mg) 1 tablet, daily. Tension Headache Oral (Tablet 500-65 mg) 2 tablets, as needed. Allergies: Ambien. (HALLUCINATIONS) Fenofibrate. (MAKES SKIN PEEL) Lunesta. (HALLUCINATIONS) NSAIDs.(itching) Tramadol. (HALLUCINAT IONS).SOCIAL HISTORYNo drug use.ADDITIONAL NOTESThe nursing notes have been reviewed.PHYSICAL EXAMVital Signs: 04/21/2020 14:37 BP: 139/97. MAP: 111. HR: 66. RR: 18. O2 saturation: 92% on room air.Temp: 98.6 F. Pain level now: 0/10.04/21/2020 13:46 BP: 185/92. MAP: 123. HR: 93. O2 saturation: 95% on room air.04/21/2020 13:00 BP: 193/91. MAP: 125. HR: 75. RR: 12. O2 saturation: 94%.04/21/2020 12:30 BP: 187/100. MAP: 129. HR: 77. RR: 13. O2 saturation: 93%.04/21/2020 11:45 BP: 181/86. MAP: 117. HR: 81. O2 saturation: 94% on room air.04/21/2020 11:30 BP: 172/85. MAP: 114. HR: 86. O2 saturation: 94% on room air.04/21/2020 11:15 BP: 178/79. MAP: 112. HR: 88. RR: 13. O2 saturation: 96%.04/21/2020 11:00 BP: 175/85. MAP: 115. HR: 85. RR: 11. O2 saturation: 96%.04/21/2020 10:45 BP: 180/86. MAP: 117. HR: 86. RR: 16. O2 saturation: 96%.04/21/2020 10:30 BP: 183/87. MAP: 119. HR: 86. RR: 13. O2 saturation: 96%.04/21/2020 10:15 BP: 184/85. MAP: 118. HR: 86. RR: 12. O2 saturation: 96%.04/21/2020 09:58 BP: 189/89. MAP: 122. HR: 90. O2 saturation: 94% on room air.04/21/2020 09:29 BP: sitting 193/100. MAP: 131.04/21/2020 09:22 BP: sitting 188/116. MAP: 140. HR: 103. RR: 18. O2 saturation: 96% on room air. Temp:98.2 F. Pain level now: 12/14. Have been reviewed and appear to be correct. Hypertensive. Meanarterial pressure- normal. Heart rate normal. Respiratory rate normal. Temperature normal. Oxygensaturation normal. 3 Clinical Report - Physicians/Mid Levels [facility] Emergency Department [address] [place] [address] Phone #: ext- [phone] 04/21/2020 09:17 Patient: BRITNEY JUAREZ Sex: F : 1950 Age: 69yAppearance: Alert. Oriented X3. No acute distress.Eyes: Pupils equal, round and reactive to light. Eyes normal inspection.ENT: Ears normal. Nose normal. Dry mucous membranes present.Neck: Normal inspection. Neck supple.CVS: Normal heart rate and rhythm. Heart sounds normal. Pulses normal.Respiratory: No respiratory distress. Painless inspiration. Breath sounds normal. Chest nontender.Abdomen: Soft. Mild tenderness diffusely (very mild diffuse tenderness). Bowel sounds normal.Back: Normal inspection.Skin: Skin warm and dry. Normal skin color. No rash.Extremities: Extremities exhibit normal ROM.Neuro: Oriented X 3.LABS, X- RAYS, AND EKGLaboratory Tests:CT ABD PEL W/O Oral W/O IV Contrast: (MINDY: 04/21/2020 12:28) ( [facility] 04/21[facility] 13:53) InProgressCT ABDReason(s): Abdominal PainTRANSPORTATION: WC IV? IV?(Yes) O2? Oxygen?(No) Jennifer Gall Bladder: (MINDY: 04/21/2020 12:27) ( [facility] [place] 04/21/2020 12:28) CanceledReason(s): RUQ PainReason(s): RUQ PainTRANSPORTATION: WC IV? O2? Oxygen?(No) Room: [facility] Diff: (MINDY: 04/21/2020 09:45) ( [facility] 04/21/2020 09:54) Final results Elizabeth t Result Flag Units (Reference) CBC W/AUTOMATED DIFF COMPLETE BLOOD COUNT WBC 10.8 10/uL (4.2 - 11.0) RBC 3.30 L 10/uL (4.20 - 5.40) HEMOGLOBIN 12.6 g/dL (12.0 - 16.0) HEMATOCRIT 36.2 L % (37.0 - 47.0) MCV 109.7 H fL (81.0 - 101) MCH 38.2 H pg (27.0 - 34.0) MCHC 34.8 g/dL (31.0 - 36.0) RDW 15.8 H % (11.5 - 14.5) PLATELETS 110 L 10/uL (150 - 450) MPV 10.6 H fL (7.4 - 10.4) NEUT 95.1 H % (37.0 - 80.0) LYMPH 3.2 L % (25.0 - 40.0) MONO 1.1 L % (3.0 - 8.0) EOS 0.0 % (0.0 - 7.0) BASO 0.1 % (0.0 - 2.5) %IG 0.5 H % (0.0 - 0.0) %NRBC 0.4 H % (0.0 - 0.0) #NEUT 10.26 H 10/uL (2.00 - 6.90) #LYMPH 0.34 L 10/uL (0.60 - 3.40) #MONO 0.12 10/uL (0.00 - 0.90) #EOS 0.00 10/uL (0.00 - 0.70) 4 Clinical Report - Physicians/Mid Levels [facility] Emergency Department [address] [place] [address] Phone #: ext- [phone] 04/21/2020 09:17 Patient: BRITNEY JUAREZ Sex: F : 1950 Age: 69y #BASO 0.01 10/uL (0.00 - 0.20) #IG 0.05 10/uL (0.00 - 0.10) #NRBC 0.04 H 10/uL (0.00 - 0.00) MANUAL DIFF NOT INDICATED RBC MORPH NOT INDICATEDCMP: (MINDY: 04/21/2020 09:45) ( MsgRcvd 04/21/2020 10:35) Final results Test Result Flag Units (Reference) COMPREHENSIVE METABOLIC PANEL COMPREHENSIVE METABOLIC PANEL SODIUM 142 mEq/L (134 - 153) POTASSIUM 3.8 mEq/L (3.6 - 5.0) CHLORIDE 100 mEq/L (98 - 107) CO2 24 MEQ/L (22 - 30) GLUCOSE 230 H MG/DL (65 - 110) BUN 31 H MG/DL (7 - 21) CREATININE 1.2 MG/DL (0.7 - 1.5) BUN/CREAT 26 (8 - 27) TOTAL PROTEIN 6.7 G/DL (6.3 - 8.2) ALBUMIN 4.4 G/DL (3.9 - 5.0) GLOBULIN 2.3 L GM/DL (2.4 - 3.2) A/G RATIO 1.9 (0.8 - 2.0) CALCIUM 9.9 MG/DL (8.4 - 10.2) TOTAL BILI 1.9 H MG/DL (0.2 - 1.3) ALKALINE PHOS 147 H U/L (38 - 126) SGOT/AST 148 H U/L (5 - 40) SGPT/ALT 290 H U/L (7 - 56) ANION GAP 18.0 H mmol/L (8.0 - 16.0) AGE 69 yrs NON- AA GFR 47 mL/min AFR AMER GFR >60 Male GFR Interprentation 20-49 yrs >60 mL/min Eddqak16-86 yrs >56 mL/min Normal 60-69 yrs >49 mL/min Normal 70-79yrs>42 mL/min Normal 80 and above >35 mL/min Normal Female GFRInterpretation 20-39 yrs >60 mL/min Normal 40-49 yrs >58 mL/minNormal 50-59 yrs >51 mL/min Normal 60-69 yrs >45 mL/min Txoyuu24-41 yrs >39 mL/min Normal 80 and above >32 mL/min NormalLipase: (MINDY: 04/21/2020 09:45) ( [facility] 04/21/2020 10:29) Final results Test Result Flag Units (Reference) LIPASE 26 U/L (13 - 60)Magnesium: (MINDY: 04/21/2020 09:45) ( [facility] 04/21/2020 10:29) Final results Test Result Flag Units (Reference) MAGNESIUM 2.2 MG/DL (1.7 - 2.2)Troponin-T: (MINDY: 04/21/2020 09:45) ( [facility] 04/21/2020 11:20) Final results Test Result Flag Units (Reference) TROPONIN T <0.01 NG/ML (0.00 - 0.10) TROPONIN T0.1 ng/ml Recommended as the clinical threshold value forTroponin T.EKG: (MINDY: 04/21/2020 09:39) ( MsgRcvd 04/21/2020 13:38) In Progress 5 Clinical Report - Physicians/Mid Levels [facility] Emergency Department [address] [place] [address] Phone #: ext- [phone] 04/21/2020 09:17 Patient: BRITNEY JUAREZ Sex: F : 1950 Age: 69y.PROGRESS AND PROCEDURESCourse of Care: pt presented for evaluation of n/v and mild abdominal discomfort. labs showed very milddehydration. pt given ivf. ct abd/pelvis showed no acute pathology. pt felt better. pt discharged andencouraged to f/u with pcp and to return if worse or any new symptoms. Patient/family counseled. Disposition: Discharged. Condition: good and stable.CLINICAL IMPRESSION Mild dehydration Noninfectious gastroenteritis with dehydration.INSTRUCTIONS Strenuous activity allowed. Drink plenty of fluids. (Return if worse or any new symptoms. You need repeat labs. You need repeat Liver Function Tests. they were slightly elevated. your sugar was also slightly elevated. please discuss with your doctor. If you are unable to follow up with your doctor, return to the ED for further evaluation and repeat labs if necessary.). Warnings: Further evaluation is necessary. GENERAL WARNINGS: Return or contact your physician immediately if your condition worsens or changes unexpectedly, if not improving as expected, or if other problems arise. Your Current Medications: Your current home medications have been reviewed. CONTINUE TAKING THE FOLLOWING MEDICATIONS: Atorvastatin Calcium Oral : Tablet 10 mg, 1 tablet daily, at bedtime. Metoprolol Tartrate Oral : Tablet 100 mg, 1 tablet daily. Takes something for her nerves does not know name*. Tension Headache Oral : Tablet 500-65 mg, 2 tablets, prn. traZODone HCl Oral : 50 mg daily, at bedtime. Prescription Medications: Zofran (orally disintegrating tablets) 4 mg: take 1 orally as needed for nausea and vomiting. Dispense twenty (20). No refill. Substitution is permissible. Follow-up: Follow up with your doctor tomorrow even if well. Call for an appointment. Reason for referral: evaluation. 6 Clinical Report - Physicians/Mid Levels [facility] Emergency Department [address] [place] [address] Phone #: ext- [phone] 04/21/2020 09:17 Patient: BRITNEY JUAREZ Sex: F : 1950 Age: 69y Summary of care provided to patient via paper. Understanding of the discharge instructions verbalized. Understanding of the discharge instructions not verbalized by patient.(Electronically signed by Brittany Berrios MD 04/24/2020 07:58) Name Value Range Interpretation Code Description Data Theresa rce(s) Supporting Document(s) ID Date Data Source [id number] 04/24/2020 09:25:[address] [facility] Name Value Range Interpretation Code Description Data Theresa rce(s) Supporting Document(s) BASIC METABOLIC PANEL [facility] BASIC METABOLIC PANEL Sodium [Moles/volume] in Serum or Plasma 142 mEq/L 134 - 153 [facility] Potassium [Moles/volume] in Serum or Plasma 3.4 mEq/L 3.6 - 5.[address] [facility] Chloride [Moles/volume] in Serum or Plasma 106 mEq/L 98 - 107 [facility] Carbon dioxide, total [Moles/volume] in Serum or Plasma 25 MEQ/L 22 - 30 [facility] Glucose [Mass/volume] in Serum or Plasma 122 MG/DL 65 - [address] [facility] BUN 13 MG/DL 7 - 21 [facility] Creatinine [Mass/volume] in Serum or Plasma 0.8 MG/DL 0.7 - 1.5 [facility] BUN/CREAT 16 8 - [facility] Calcium [Mass/volume] in Serum or Plasma 8.3 MG/DL 8.4 - 10.[address] [facility] Anion gap 3 in Serum or Plasma 11.0 mmol/L 8.0 - 16.0 [facility]GE 69 [facility] AMER GFR >60 [facility] NON-AA GFR >60 mL/min [facility] ital Male GFR Inter prentation 20-49 yrs >60 mL/min Normal 50-59 yrs >56 mL/min Normal 60-69 yrs >49 mL/min Normal 70-79yrs >42 mL/min Normal 80 and above >35 mL/min Normal Female GFR Interpretation 20-39 yrs >60 mL/min Normal 40-49 yrs >58 mL/min Normal 50-59 yrs >51 mL/min Normal 60-69 yrs >45 mL/min Normal 70-79 yrs >39 mL/min Normal 80 and above >32 mL/min Normal ID Date Data Source [id number] 04/24/2020 09:18:[address] [facility] Name Value Range Interpretation Code Description Data Theresa rce(s) Supporting Document(s) CBC W/AUTOMATED DIFF [facility] COMPLETE BLOOD COUNT Leukocytes [#/volume] in Blood by Automated count 10.4 10^3/uL 4.2 - 11.0 [facility] Erythrocytes [#/volume] in Blood by Automated count 2.71 10^6/uL 4. 20 - 5.[address] [facility] Hemoglobin [Mass/volume] in Blood 10.2 g/dL 12.0 - 16.[address] [facility] Hematocrit [Volume Fraction] of Blood by Automated count 30.6 % 3 7.0 - 47.[address] [facility] Erythrocyte mean corpuscular volume [Entitic volume] b y Automated count 112.9 fL 81.0 - [address] [facility] Erythrocyte mean corpuscular hemoglobin [Entitic mass] by Automated count 37.6 pg 27.0 - 34.[address] [facility] Erythrocyte mean corpuscular hemoglobin concentration [Mass/volume] by Automated count 33.3 g/dL 31.0 - 36.0 [facility] Erythrocyte distribution width [Ratio] by Automated count 15.9 % 11.5 - 14.[address] [facility] Platelets [#/volume] in Blood by Automated count 53 10^3/uL 150 - [address] [facility] Platelet mean volume [Entitic volume] in Blood by Automated count 11.9 fL 7.4 - 10.[address] [facility] Neutrophils/100 leukocytes in Blood by Automated count 86.5 % 37. 0 - 80.[address] [facility] Lymphocytes/100 leukocytes in Blood by Manual count 6.9 % 25.0 - 40.[address] [facility] Monocytes/100 leukocytes in Blood by Automated count 3.4 % 3.0 - 8.0 [facility] Eosinophils/100 leukocytes in Blood by Automated count 2.1 % 0.0 - 7.0 [facility] Basophils/100 leukocytes in Blood by Automated count 0.1 % 0.0 - 2.5 [facility] %IG 1.0 % 0.0 - 0.0 [facility] %NRBC 0.0 % 0.0 - 0.0 [facility] al Neutrophils [#/volume] in Blood by Automated count 9.01 10^3/uL 2.00 - 6.[address] [facility] Lymphocytes [#/volume] in Blood by Automated count 0.72 10^3/uL 0.60 - 3.40 [facility] Monocytes [#/volume] in Blood by Automated count 0.35 10^3/uL 0.00 - 0.90 [facility] Eosinophils [#/volume] in Blood by Automated count 0.22 10^3/uL 0.00 - 0.70 [facility] Basophils [#/volume] in Blood by Automated count 0.01 10^3/uL 0.00 - 0.20 [facility] #IG 0.10 10^3/uL 0.00 - 0.10 [facility] #NRBC 0.00 10^3/uL 0.00 - 0.00 [facility] MANUAL DIFF NOT INDICATED [facility] RBC MORPH NOT INDICATED [facility] ID Date Data Source [id number] 04/24/2020 08:40:[address] [facility] Name Value Range Interpretation Code Description Data Theresa rce(s) Supporting Document(s) Lactate [Moles/volume] in Serum or Plasma 4.8 MMOL/L 0.2 - 2.2 [facility] CALL/ READ BACK BK ON [facility] BY: REENA [facility] DATE/TIME 04/24/20 0840 [facility] ID Date Data Source [id number] 04/23/2020 11:33:[address] [facility] Name Value Range Interpretation Code Description Data Theresa rce(s) Supporting Document(s) Lactate [Moles/volume] in Serum or Plasma 2.2 MMOL/L 0.2 - 2.2 [facility] ID Date Data Source [id number] 04/23/2020 05:39:[address] [facility] Name Value Range Interpretation Code Description Data Theresa rce(s) Supporting Document(s) Lactate [Moles/volume] in Serum or Plasma 3.8 MMOL/L 0.2 - 2.2 [facility] CALL/ READ BACK BK IN [facility] BY: CINDI [facility] DATE/TIME [facility] ital ID Date Data Source [id number] 04/23/2020 01:52:00 PM EDT [facility] Value Range Interpretation Code Description Data Theresa rce(s) Supporting Document(s) Lipase [Enzymatic activity/volume] in Serum or Plasma 50 U/L 13 - 60 [facility] ID Date Data Source [id number] 04/23/2020 01:51:[address] [facility] Name Value Range Interpretation Code Description Data Theresa rce(s) Supporting Document(s) COMPREHENSIVE METABOLIC PANEL [facility] COMPREHENSIVE METABOLIC PANEL Sodium [Moles/volume] in Serum or Plasma 138 mEq/L 134 - 153 [facility] Potassium [Moles/volume] in Serum or Plasma 3.2 mEq/L 3.6 - 5.[address] [facility] Chloride [Moles/volume] in Serum or Plasma 98 mEq/L 98 - 107 [facility] Carbon dioxide, total [Moles/volume] in Serum or Plasma 30 MEQ/L 22 - 30 [facility] Glucose [Mass/volume] in Serum or Plasma 130 MG/DL 65 - [address] [facility] BUN 21 MG/DL 7 - 21 [facility] al Creatinine [Mass/volume] in Serum or Plasma 0.9 MG/DL 0.7 - 1.5 [facility] BUN/CREAT 23 8 - 27 [facility] al Protein [Mass/volume] in Serum or Plasma 5.9 G/DL 6.3 - 8.[address] [facility] Albumin [Mass/volume] in Serum or Plasma 4.0 G/DL 3.9 - 5.0 [facility] Globulin [Mass/volume] in Serum by calculation 1.9 GM/DL 2.4 - 3.[address] [facility] A/G RATIO 2.1 0.8 - 2.0 H [facility] Calcium [Mass/volume] in Serum or Plasma 9.0 MG/DL 8.4 - 10.2 [facility] Bilirubin.total [Mass/volume] in Serum or Plasma 2.3 MG/DL 0.2 - 1.[address] [facility] Alkaline phosphatase [Enzymatic activity/volume] in Serum or Plasma 125 U/L 38 - 126 [facility] Aspartate aminotransferase [Enzymatic activity/volume] in Serum or Plasma 57 U/L 5 - [address] [facility] Alanine aminotransferase [Enzymatic activity/volume] in Seru m or Plasma 153 U/L 7 - [address] [facility] Anion gap 3 in Serum or Plasma 10.0 mmol/L 8.0 - 16.0 [facility] AGE 69 yrs [facility] al NON-AA GFR >60 mL/min [facility] ital AFR AMER GFR >60 [facility] Male GFR In terprentation 20-49 yrs >60 mL/min Normal 50-59 yrs >56 mL/min Normal 60-69 yrs >49 mL/min Normal 70-79yrs >42 mL/min Normal 80 and above >35 mL/min Normal Female GFR Interpretation 20-39 yrs >60 mL/min Normal 40-49 yrs >58 mL/min Normal 50-59 yrs >51 mL/min Normal 60-69 yrs >45 mL/min Normal 70-79 yrs >39 mL/min Normal 80 and above >32 mL/min Normal ID Date Data Source [id number] 04/23/2020 01:44:00 PM [facility] Name Value Range Interpretation Code Description Data Theresa rce(s) Supporting Document(s) Lactate [Moles/volume] in Serum or Plasma 2.4 MMOL/L 0.2 - 2.[address] [facility] ID Date Data Source [id number] 04/23/2020 01:32:[address] [facility] Name Value Range Interpretation Code Description Data Theresa rce(s) Supporting Document(s) CBC W/AUTOMATED DIFF [facility] COMPLETE BLOOD COUNT Leukocytes [#/volume] in Blood by Automated count 11.7 10^3/uL 4.2 - 11.[address] [facility] Erythrocytes [#/volume] in Blood by Automated count 3.09 10^6/uL 4. 20 - 5.[address] [facility] Hemoglobin [Mass/volume] in Blood 12.0 g/dL 12.0 - 16.0 [facility] Hematocrit [Volume Fraction] of Blood by Automated count 34.2 % 3 7.0 - 47.[address] [facility] Erythrocyte mean corpuscular volume [Entitic volume] b y Automated count 110.7 fL 81.0 - [address] [facility] Erythrocyte mean corpuscular hemoglobin [Entitic mass] by Automated count 38.8 pg 27.0 - 34.[address] [facility] Erythrocyte mean corpuscular hemoglobin concentration [Mass/volume] by Automated count 35.1 g/dL 31.0 - 36.0 [facility] Erythrocyte distribution width [Ratio] by Automated count 15.8 % 11.5 - 14.[address] [facility] Platelets [#/volume] in Blood by Automated count 71 10^3/uL 150 - [address] [facility] Platelet mean volume [Entitic volume] in Blood by Automated count 11.1 fL 7.4 - 10.[address] [facility] Neutrophils/100 leukocytes in Blood by Automated count 86.4 % 37. 0 - 80.[address] [facility] Lymphocytes/100 leukocytes in Blood by Manual count 8.5 % 25.0 - 40.[address] [facility] [facility] Monocytes/100 leukocytes in Blood by Automated count 3.1 % 3.0 - 8.0 [facility] Eosinophils/100 leukocytes in Blood by Automated count 0.6 % 0.0 - 7.0 [facility] Basophils/100 leukocytes in Blood by Automated count 0.1 % 0.0 - 2.5 [facility] %IG 1.3 % 0.0 - 0.0 [facility] %NRBC 0.2 % 0.0 - 0.0 [facility] Neutrophils [#/volume] in Blood by Automated count 10.12 10^3/uL 2. 00 - 6.[address] [facility] Lymphocytes [#/volume] in Blood by Automated count 0.99 10^3/uL 0.60 - 3.40 [facility] Monocytes [#/volume] in Blood by Automated count 0.36 10^3/uL 0.00 - 0.90 [facility] Eosinophils [#/volume] in Blood by Automated count 0.07 10^3/uL 0.00 - 0.70 [facility] Basophils [#/volume] in Blood by Automated count 0.01 10^3/uL 0.00 - 0.20 [facility] #IG 0.15 10^3/uL 0.00 - 0.10 [facility] #NRBC 0.02 10^3/uL 0.00 - 0.00 [facility] MANUAL DIFF NOT INDICATED [facility] RBC MORPH NOT INDICATED [facility] spital ID Date Data Source [id number] 04/22/2020 03:23:00 PM EDT [facility] [address] [place] [address] PHONE: [phone] FAX: [phone] Name .................. : BISMARK Thomson Acct Number.................. : [id number] ROOM. ................. : TR-08 MR Number ................... : [id number] Stay type ............. : E/R Discharge Date......... ... : Admit Date ......... : 04/21/20 Admit Phys .................... : COONEYNORM Date of ....... : 1950 Family Phys ................... : LYNDA MARIA LUISA Phone .................. : [phone] Age ................................ : 69 Film# .................. .:[id number] Sex ................................. : F Unsigned transcriptions are preliminary reports and do not represent a medical or legal document CT ABD & PELV W/[place] [id number] COMPLETE:04/21/20 13:53 KBO [id number] Reason(s): Abdominal Pain CT ABDOMEN/PELVIS WITHOUT IV CONTRAST, 04/21/20: INDICATION: Abdominal pain. Comparison is made to a previous examination from 04/04/2020. FINDINGS: Examination reveals atelectasis at the right lung base, which remains stable as compared to the previous examination. No distinct nodule or infiltrate is identified. No pleural or pericardial effusion is identified. The heart appears prominent. Liver and spleen appear unremarkable. Patient is status post prior cholecystectomy. Bilateral adrenal lesions are identified, which are not significantly changed as compared to the previous examination. The right side lesion measures approximately 2.1 x 1.1 cm and has Hounsfield units measuring 9. The left lesion measures approximately 2.6 x 1.4 cm and has Hounsfield units measuring 10. These are stable as discussed above and likely represent adrenal adenomas. Right kidney appears unremarkable. Left kidney shows a large exophytic cyst at the lower pole measuring approximately 5.8 x 5.6 cm in size. Hounsfield units measure 8, consistent with a cyst. This is stable as compared to the previous examination. Atherosclerotic disease is identified in the aorta. Widest dimension of the aorta is distally measuring approximately 2.6 cm in size. 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 On the right side, the aneurysm measures 4.2 x 5.0 cm. On the left side, the aneurysm measures approximately 2.2 cm. No evidence of rupture is identified. Diffuse diverticulosis is identified without evidence of diverticulitis. There is a fat-containing ventral hernia which has not significantly changed. Urinary bladder appears unremarkable. Osseous structures demonstrate degenerative changes. IMPRESSION: Stable bilateral adrenal adenomas, stable left renal cyst. Diverticulosis without evidence of diverticulitis. Page 1 of 2 [place] [address] PHONE: [phone] FAX: [phone] Name .................. : BISMARK Thomson Acct Number.................. : [id number] ROOM. ................. : TR-08 MR Number ................... : [id number] Stay type ............. : E/R Discharge Date......... ... : Admit Date ......... : 04/21/20 Admit Phys .................... : MIR Da te of ....... : 1950 Family Phys ................... : LYNDA MARIA LUISA Phone .................. : [phone] Age ................................ : 69 Film# .................. .:[id number] Sex ................................. : F Unsigned transcriptions are preliminary reports and do not represent a medical or legal document CT ABD & PELV W/[place] [address] COMPLETE:04/21/20 13:53 KBO [id number] Reason(s): Abdominal Pain Stable bilateral iliac artery aneurysms. Stable fat-containing ventral hernia. No acute findings. While performing the above CT examination, radiation dose reduction was accomplished utilizing automated exposure control, adjusting of the mA and kV based on the patient's body size and/or the use of imperative reconstructive techniques. CT dose 730.8 mGycm. Examination dictated by PEPPER Garrido. Examination was reviewed with Chuck Amanda MD, radiologist at the time of this dictation. Electronically Reviewed and Signed By Chuck Amanda MD , 04/22/20 15:23, KGG Transcribe Initials: SSR, Transcribe Date: 04/21/20 14:19, Dictation Date: Copy for: EMERGENCY DEPT via mode Copy for: 710 MED REC DISCHARGED Page 2 of 2 Name Value Range Interpretation Code Description Data Theresa rce(s) Supporting Document(s) ID Date Data Source [id number] 04/22/2020 01:31:00 [place] [address] PHONE: [phone] FAX: [phone] Name ..............: BISMARK Thomson Acct Number ...........................: [id number] ROOM. ............: TR-08 MR Number ............................: [id number] Stay type.........: E/R Discharge Date...............:04/21/20 Admit Date .....: 04/21/20 Admit Phys .............................: ........................COONEYNORM Date of ..: 1950 Family Phys ...........................: SMITH Phone..............: [phone] Age.................................:69 Film# ...............:[id number] Sex.................................:F Unsigned transcriptions are preliminary reports and [place] [id number] COMPLETE:04/21/20 13:30 EWW [id number] Please See Scanned Results. Name Value Range Interpretation Code Description Data Theresa rce(s) Supporting Document(s) ID Date Data Source [id number] 04/21/2020 02:31:[address] [facility] Name Value Range Interpretation Code Description Data [facility] rce(s) Supporting Document(s) URINALYSIS [facility] gayla URINALYSIS SOURCE R [facility] COLOR yellow NORMAL: Yellow [facility] CLARITY clear NORMAL: Clear [facility] Specific gravity of Urine by Test strip 1.010 1.001 - 1.030 [facility] pH 7 5 - 9 [facility] Glucose [Mass/volume] in Urine by Test strip NORM NORMAL: Negat yonas [facility] Bilirubin.total [Presence] in Urine by Test strip NEG NORMAL: Negative [facility] Ketones [Presence] in Urine by Test strip 5 NORMAL: Negative A [facility] Protein [Mass/volume] in Urine by Test strip 15 NORMAL: Negat yonas [facility] Nitrite [Presence] in Urine by Test strip NEG NORMAL: Negative [facility] BLOOD NEG NORMAL: Negative [facility] Leukocyte esterase [Presence] in Urine by Test strip 25 BRITTANY L: Negative [facility] Urobilinogen [Mass/volume] in Urine by Test strip NOR less emil n 1.0 mg/dL [facility] MICROSCOPIC See Below [facility] ital WBC 3 - 5 NORMAL: NONE SEEN [facility] Erythrocytes [#/volume] in Urine by Test strip 1 - 3 NORMAL: NON E SEEN [facility] EPITHELIAL MODERATE NORMAL: NONE SEEN [facility] Bacteria [Presence] in Urine sediment by Light microscopy Tr tien NORMAL: NONE SEEN [facility] ID Date Data Source [id number] 04/21/2020 11:20:[address] [facility] Name Value Range Interpretation Code Description Data Theresa rce(s) Supporting Document(s) TROPONIN T <0.01 NG/ML 0.00 - 0.10 [facility] ospital TROPONIN T0.1 ng/ml Recommended as the c linical threshold value forTroponin T. ID Date Data Source [id number] 04/21/2020 10:35:[address] [facility] Name Value Range Interpretation Code Description Data Theresa rce(s) Supporting Document(s) COMPREHENSIVE METABOLIC PANEL [facility] COMPREHENSIVE METABOLIC PANEL Sodium [Moles/volume] in Serum or Plasma 142 mEq/L 134 - 153 [facility] Potassium [Moles/volume] in Serum or Plasma 3.8 mEq/L 3.6 - 5.0 [facility] Chloride [Moles/volume] in Serum or Plasma 100 mEq/L 98 - 107 [facility] Carbon dioxide, total [Moles/volume] in Serum or Plasma 24 MEQ/L 22 - 30 [facility] Glucose [Mass/volume] in Serum or Plasma 230 MG/DL 65 - [address] [facility] BUN 31 MG/DL 7 - 21 H [facility] al Creatinine [Mass/volume] in Serum or Plasma 1.2 MG/DL 0.7 - 1.5 [facility] BUN/CREAT 26 8 - 27 [facility] al Protein [Mass/volume] in Serum or Plasma 6.7 G/DL 6.3 - 8.2 [facility] Albumin [Mass/volume] in Serum or Plasma 4.4 G/DL 3.9 - 5.0 [facility] Globulin [Mass/volume] in Serum by calculation 2.3 GM/DL 2.4 - 3.[address] [facility] A/G RATIO 1.9 0.8 - 2.0 [facility] Calcium [Mass/volume] in Serum or Plasma 9.9 MG/DL 8.4 - 10.2 [facility] Bilirubin.total [Mass/volume] in Serum or Plasma 1.9 MG/DL 0.2 - 1.[address] [facility] Alkaline phosphatase [Enzymatic activity/volume] in Serum or Plasma 147 U/L 38 - [address] [facility] Aspartate aminotransferase [Enzymatic activity/volume] in Serum or Plasma 148 U/L 5 - [address] [facility] Alanine aminotransferase [Enzymatic activity/volume] in Seru m or Plasma 290 U/L 7 - [address] [facility] Anion gap 3 in Serum or Plasma 18.0 mmol/L 8.0 - 16.[address] [facility] AGE 69 yrs [facility] al NON-AA GFR 47 mL/min [facility] AFR AMER GFR >60 [facility] Male GFR In terprentation 20-49 yrs >60 mL/min Normal 50-59 yrs >56 mL/min Normal 60-69 yrs >49 mL/min Normal 70-79yrs >42 mL/min Normal 80 and above >35 mL/min Normal Female GFR Interpretation 20-39 yrs >60 mL/min Normal 40-49 yrs >58 mL/min Normal 50-59 yrs >51 mL/min Normal 60-69 yrs >45 mL/min Normal 70-79 yrs >39 mL/min Normal 80 and above >32 mL/min Normal ID Date Data Source [id number] 04/21/2020 10:29:[address] [facility] Name Value Range Interpretation Code Description Data Theresa rce(s) Supporting Document(s) Magnesium [Mass/volume] in Serum or Plasma 2.2 MG/DL 1.7 - 2.2 [facility] ID Date Data Source [id number] 04/21/2020 10:29:[address] [facility] Name Value Range Interpretation Code Description Data Theresa rce(s) Supporting Document(s) Lipase [Enzymatic activity/volume] in Serum or Plasma 26 U/L 13 - 60 [facility] ID Date Data Source [id number] 04/21/2020 09:54:[address] [facility] Name Value Range Interpretation Code Description Data Theresa rce(s) Supporting Document(s) CBC W/AUTOMATED DIFF [facility] COMPLETE BLOOD COUNT Leukocytes [#/volume] in Blood by Automated count 10.8 10^3/uL 4.2 - 11.0 [facility] Erythrocytes [#/volume] in Blood by Automated count 3.30 10^6/uL 4. 20 - 5.[address] [facility] Hemoglobin [Mass/volume] in Blood 12.6 g/dL 12.0 - 16.0 [facility] Hematocrit [Volume Fraction] of Blood by Automated count 36.2 % 3 7.0 - 47.[address] [facility] Erythrocyte mean corpuscular volume [Entitic volume] b y Automated count 109.7 fL 81.0 - [address] [facility] Erythrocyte mean corpuscular hemoglobin [Entitic mass] by Automated count 38.2 pg 27.0 - 34.[address] [facility] Erythrocyte mean corpuscular hemoglobin concentration [Mass/volume] by Automated count 34.8 g/dL 31.0 - 36.0 [facility] Erythrocyte distribution width [Ratio] by Automated count 15.8 % 11.5 - 14.[address] [facility] Platelets [#/volume] in Blood by Automated count 110 10^3/uL 150 - [address] [facility] Platelet mean volume [Entitic volume] in Blood by Automated count 10.6 fL 7.4 - 10.[address] [facility] Neutrophils/100 leukocytes in Blood by Automated count 95.1 % 37. 0 - 80.[address] [facility] Lymphocytes/100 leukocytes in Blood by Manual count 3.2 % 25.0 - 40.[address] [facility] Monocytes/100 leukocytes in Blood by Automated count 1.1 % 3.0 - 8.[address] [facility] Eosinophils/100 leukocytes in Blood by Automated count 0.0 % 0.0 - 7.0 [facility] Basophils/100 leukocytes in Blood by Automated count 0.1 % 0.0 - 2.5 [facility] %IG 0.5 % 0.0 - 0.0 [facility] %NRBC 0.4 % 0.0 - 0.0 H [facility] al Neutrophils [#/volume] in Blood by Automated count 10.26 10^3/uL 2. 00 - 6.[address] [facility] Lymphocytes [#/volume] in Blood by Automated count 0.34 10^3/uL 0.60 - 3.[address] [facility] Monocytes [#/volume] in Blood by Automated count 0.12 10^3/uL 0.00 - 0.90 [facility] Eosinophils [#/volume] in Blood by Automated count 0.00 10^3/uL 0.00 - 0.70 [facility] Basophils [#/volume] in Blood by Automated count 0.01 10^3/uL 0.00 - 0.20 [facility] #IG 0.05 10^3/uL 0.00 - 0.10 [facility] ospital #NRBC 0.04 10^3/uL 0.00 - 0.00 [facility] MANUAL DIFF NOT INDICATED [facility] RBC MORPH NOT INDICATED [facility] spital ID Date Data Source [id number] 04/25/2020 06:34:[address] [facility] Name Value Range Interpretation Code Description Data Theresa rce(s) Supporting Document(s) Campylobacter coli+jejuni+upsaliensis DN A [Presence] in Stool by Target amplification with non-probe based detection Not Detected Not Detected [facility] Clostridium difficile toxin A+B (tcdA+tc dB) genes [Presence] in Stool by Target amplification with non-probe based detection Not Detected Not Detected [facility] Plesiomonas shigelloides DNA [Presence] in Stool by Target amplification with non-probe based detection Not Detected Not Detected [facility] Salmonella enterica+bongori DNA [Presenc e] in Stool by Target amplification with non-probe based detection Not Detected Not Detected [facility] Vibrio cholerae+parahaemolyticus+vulnifi cus DNA [Presence] in Stool by Target amplification with non-probe based detection Not Detected Not Detected [facility] Vibrio cholerae DNA [Presence] in Stool by Target amplification with non-probe based detection Not Detected Not Detected [facility] spital Yersinia enterocolitica DNA [Presence] i n Stool by Target amplification with non-probe based detection Not Detected Not Detected [facility] Escherichia coli enteroaggregative Oly p lasmid aggR+aatA genes [Presence] in Stool by Target amplification with non-probe based detection Not Detected Not Detected [facility] Escherichia coli enteropathogenic eae ge ne [Presence] in Stool by Target amplification with non-probe based detection Not Detected Not Detected [facility] Escherichia coli enterotoxigenic ltA+st1 a+st1b genes [Presence] in Stool by Target amplification with non-probe based detection Not Detected Not Detected [facility] Escherichia coli shiga-like toxin 1+2 (s tx1+stx2) genes [Presence] in Stool by Target amplification with non-probe based detection Not Detected Not Detected [facility] Escherichia coli O157 DNA [Presence] in Stool by Target amplification with non- probe based detection Not applicable Not Detected [facility] Shigella species+EIEC invasion plasmid a ntigen H (ipaH) gene [Presence] in Stool by Target amplification with non-probe based detection Not Detected Not Detected [facility] Cryptosporidium sp DNA [Presence] in Sto ol by Target amplification with non- probe based detection Not Detected Not Detected [facility] Cyclospora cayetanensis DNA [Presence] i n Stool by Target amplification with non-probe based detection Not Detected Not Detected [facility] Entamoeba histolytica DNA [Presence] in Stool by Target amplification with non- probe based detection Not Detected Not Detected [facility] Giardia lamblia DNA [Presence] in Stool by Target amplification with non-probe based detection Not Detected Not Detected [facility] spital Adenovirus F(40+41) DNA [Presence] in St ool by Target amplification with non- probe based detection Not Detected Not Detected [facility] Astrovirus subtypes 1-8 RNA [Presence] i n Stool by Target amplification with non-probe based detection Not Detected Not Detected [facility] Norovirus genogroup I+II RNA [Presence] in Stool by Target amplification with non-probe based detection Not Detected Not Detected [facility] Rotavirus A RNA [Presence] in Stool by T arget amplification with non-probe based detection Not Detected Not Detected [facility] Sapovirus genogroups I+II+IV+V RNA [Pres ence] in Stool by Target amplification with non-probe based detection Not Detected Not Detected [facility] ID Date Data Source [id number] 04/12/2020 01:27:00 PM EDT [facility] Patient Name: Britney Juarez DO B: 1950 Sex: F Pt Unit #: [id number] Location:[facility] Provider: Visit Date/Time: 04/12/20 Primary Insurance: [employer] MEDICARE Secondary Insurance: Self Pay Intake Vital Signs 04/12/20 13:27 Current Height 5 ft 2 in Current Weight 152 lb Weight Measurement Method Standing Scale BMI 27.8 BP 140/70 Blood Pressure Location Lt brachial Position Sitting Respiration 18 Pulse 60 Pulse Strength Normal Pulse Source Pulse Oximeter Pulse Oximetry (%) 98 Oxygen Delivery Method room air Intake Visit Reasons: Hypertension Nurse Note: pt is here today for hypertension Is patient in pain?: No Allergies naproxen [From Naprosyn] Allergy (Severe, Unverified 07/06/19 16:04) Hives fenofibrate Adverse Reaction (Intermediate, Unverified 07/20/19 13:29) skin rash zolpidem [From Ambien] Adverse Reaction (Intermediate, Unverified 07/20/19 13:28) hallucinations eszopiclone [From Lunesta] Adverse Reaction (Unverified 07/20/19 13:27) hallucinations tramadol Adverse Reaction (Unverified 07/20/19 13:26) hallucination Medications acetaminophen 325 mg PO DAILY atorvastatin 20 mg PO QDAY diclofenac sodium 1% 2 grams topical QID hydrocodone-acetaminophen 5-325 mg 1 tab PO TID PRN MDD 3 metoprolol tartrate 100 mg PO QDAY potassium chloride ER 40 mEq (2 x 20 mEq) PO QDAY trazodone TAKE ONE TABLET BY MOUTH EVERY DAY Fall Risk History of falls: No Ambulatory Aid:: None Gait/Transferring:: Normal Medications:: Antihypertensives HIV Testing Offer - ages 13-64 Requirement for HIV testing offer been met?: Not in age range Hep C Testing Offered: Yes Hep C Requirement met: Refuses today Coronavirus Screening Screening Have you traveled outside of [facility] or [facility] in the last 14 days.: No Has patient experienced coronavirus symptoms: No PFSH Social History Does the Patient have a Healthcare Proxy: No Does Patient have a DNR?: No Does Patient have a Living Will?: No HPI Additional HPI HPI Details: RECHECK. NEEDS MED REFILLS. FEELS WELL, EXCEPT HAS HAD DIARRHEA SINCE SURGERY. WATERY STOOLS, SEVERAL TIMES A DAY. Hypertension (Cardio) Most Recent Cardiac Tests: No Data to Display Review of Systems Const All systems reviewed are unremarkable except as noted in HPI and below Reports system reviewed and no additional complaints, except as documented Eyes Reports system reviewed and no additional complaints, except as documented ENT Reports system reviewed and no additional complaints, except as documented Card Reports system reviewed and no additional complaints, except as documented Resp Reports system reviewed and no additional complaints, except as documented GI Reports system reviewed and no additional complaints, except as documented Genitourinary: Reports system reviewed and no additional complaints, except as documented Musc Reports system reviewed and no additional complaints, except as documented Skin/Breast Reports system reviewed and no additional complaints, except as documented Neuro Reports system reviewed and no add itional complaints, except as documented Psych Reports system reviewed and no additional complaints, except as documented Endo Reports system reviewed and no additional complaints, except as documented Haroldo/Lymph Reports system reviewed and no additional complaints, except as documented Aller/Immun Reports system reviewed and no additional complaints, except as documented Exam Const General: cooperative and comfortable Nutritional Appearance: average body habitus Orientation: alert HENUT Head: normal to inspection Ears: hearing grossly normal bilaterally Eyes General: appearance normal, both eyes and all related structures Alignment and Position: alignment normal Periorbital: periorbital findings normal Eyelids: eyelids normal Conjunctivae: conjunctivae normal Sclera: sclerae normal Cornea: corneas normal Pupils: PERRL EOM: EOM intact bilaterally Neck Neck: normal visual inspection Neck mass: No Thyroid: thyroid normal Lymphatic: no lymphadenopathy noted Resp E ffort Inspection: normal respiratory effort Auscultation: clear to auscultation bilaterally Cardio Rate: regular rate Rhythm: regular rhythm GI Inspection: Yes normal to inspection Palpation: soft Percussion: normal to percussion General: No CVA tenderness Musc Cervical Spine: normal cervical lordosis Thoracic/Lumbar Spine: thoracic and lumbar spine normal to inspection Skin Lesions: no lesions Rashes: no rashes Neuro General: patient alert and patient oriented x3 Cranial Nerves: CN's II-XII intact bilaterally Extrem General: normal to inspection Psych Appearance: grossly normal Mental Status: mental status grossly normal Speech and Movement: speech and movement normal Mood: congruent mood Affect: normal affect Attitude: cooperative Thought Process: normal Thought Content: normal Insight: insight good Judgment: judgment good Assessment Plan Assessment Plan (1) Hypertension: Status: Acute Code(s): I10 - Essential (primary) hypertension SNOMED Code(s): 13141141 Category: Medical Plan - Maria Luisa Elizondo NP: RTC 3 MONTHS (2) Diarrhea: Status: Acute Code(s): R19.7 - Diarrhea, unspecified SNOMED Code(s): 10155403 Category: Medical Plan - Maria Luisa Elizondo NP: GI PANEL Electronically Signed By: <Electronically signed by Maria Luisa Elizondo NP> Date/Time Signed: 04/12/20 1359 Name Value Range Interpretation Code Description Data Theresa rce(s) Supporting Document(s) ID Date Data Source [id number] 04/05/2020 08:40:00 [place] [address] PHONE: [phone] FAX: [phone] Name .................. : BISMARK Thomson Acct Number.................. : [id number] ROOM. ................. : MR Number ................... : [id number] Stay type ............. : O/P Discharge Date......... ... : 04/04/20 Admit Date ....... .. : 04/04/20 Admit Phys .................... : PACHECO Thomson Date of ....... : 1950 Family Phys ................... : SMITH Phone .................. : [phone] Age ................................ : 69 Film# .................. .:[id number] Sex ................................. : F Unsigned transcriptions are preliminary reports and do not represent a medical or legal document CT ABD & PELV W/O ORAL W/[place] [id number] COMPLETE:04/04/20 11:44 [facility] [address] [id number] (REASON FOR ABDOMEN: ANEURYSM OF R COMMON ILIAC ARTERY CT SCAN OF THE ABDOMEN/PELVIS WITHOUT CONTRAST, 04/04/20: Comparison is made to a previous examination from 06/19/2019. INDICATION: Aneurysm of the right common iliac artery. FINDINGS: Lung brown show atelectasis at the right lung base. This has not significantly changed. Heart appears unremarkable. Atherosclerotic disease is identified in the aorta. The liver appears unremarkable. Multiple right adrenal lesions are suspected. The largest measures approximately 2.4 x 1.4 cm in size. This does not appear significantly changed. It has Hounsfield units measuring 0.65, consistent with an adrenal adenoma. Spleen appears unremarkable. Pancreas is within normal limits. Gallbladder is surgically absent. Kidneys appear unremarkable with the exception of a large cyst at the lower pole of the left kidney measuring 5.5 x 6.0 cm in size. Hounsfield units on this non-contrasted study are 6.8. The previous study did utilize contrast and the Hounsfield units measured approximately 6.7 Hounsfield units. Vascular grafts are identified in the bilateral common iliac arteries. There is an aneurysm of the right common iliac artery measuring 5.2 x 4.4 cm in size. Previously, this measured 5.1 x 3.9 cm. 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 This is stable as compared to the previous examination. There is a ventral hernia identified at the umbilicus which does involve a small amount of transverse colon. This has not significantly changed since the previous examination. No evidence of obstruction is identified. No free fluid is identified in the pelvis. Osseous structures demonstrate degenerative changes. No acute findings are noted. There is diffuse diverticulosis. No evidence of diverticulitis. IMPRESSION: Page 1 of 2 [facility] [address] [place] [address] PHONE: [phone] FAX: [phone] Name .................. : BISMARK Thomson Acct Number.................. : [id number] ROOM. ................. : Number ................... : [id number] Stay type ............. : O/P Discharge Date......... ... : 04/04/20 Admit Date ......... : 04/04/20 Admit Phys .................... : PACHECO Thomson Date of ....... : 1950 Family Phys ................... : SMITH Phone .................. : [phone] Age ................................ : 69 Film# .................. .:[id number] Sex .... ............................. : F Unsigned transcriptions are preliminary reports and do not represent a medical or legal document CT ABD & PELV W/O ORAL W/[place] [id number] COMPLETE:04/04/20 11:44 [facility] [id number] (REASON FOR ABDOMEN: ANEURYSM OF R COMMON ILIAC ARTERY Stable aneurysmal dilatation of the bilateral common iliac arteries, right greater than left. Stable right adrenal adenoma. Stable left renal cyst. Stable right basilar atelectasis. While performing the above CT examination, radiation dose reduction was accomplished utilizing automated exposure control, adjusting of the mA and kV based on the patient's body size and/or the use of imperative reconstructive techniques. CT dose 765.2 mGycm. Examination dictated by PEPPER Garrido. Examination was reviewed with Omid Peña MD, radiologist at the time of this dictation. Electronically Reviewed and Signed By Omid Peña MD , 04/05/20 08:40, AML Transcribe Initials: SSR, Transcribe Date: 04/04/20 13:42, Dictation Date: Copy for: PACHECO SANCHEZ via fax Copy for: [address] [place] [address] REC Page 2 of 2 Name Value Range Interpretation Code Description Data Theresa rce(s) Supporting Document(s) ID Date Data Source [id number] 03/24/2020 04:02:04 PM EDT [facility] XR SPINE-ENTIRE THORACIC AND LUMBAR- 2 O R 3 VIEW [id number] RESULTInterpreted by:Elliott Brito MDINDICATION: Neck pain.TECHNIQUE: 6 radiographic views of the thoracic and lumbar spine were obtained. 4 views of the cervical spine were obtained.COMPARISON: Cervical MRI from an outside hospital dated 09/22/2019. CT abdomen pelvis 06/19/2019.FINDINGS: The bones are diffusely osteopenic which limits evaluation of the fine bony detail. Cervical spine: The C7 cervical spine is not clearly visualized and cannot be assessed.Multilevel degenerative changes with intervertebral disc space narrowing and osteophyte formation are noted. Alignment is maintained. No acute fracture or traumatic listhesis is identified. Surrounding soft tissues are grossly unremarkable.Thoracic spine: Suboptimal evaluation due to overlying soft tissues and underpenetration of the lateral views. Grossly, no acute fracture or traumatic listhesis is identified. Multilevel degenerative changes with interve rtebral disc space narrowing and osteophyte formation is seen throughout the thoracic spine. Vertebral body heights are maintained.Midline sternotomy wires are noted and appear intact. Visualized portions of the lungs are clear except for some mild linear atelectasis or scarring at the right lung base.Lumbar spine: For the purposes of counting, the last fully formed vertebral body is considered L5.No acute fracture or traumatic listhesis is identified. Grade 1 anterior listhesis at L4-L5 is unchanged from prior examinations. Multilevel degenerative changes with intervertebral disc space narrowing and osteophyte formation are noted. Vertebral body heights are maintained.Radiopaque surgical material is seen within the pelvis. Partial visualization of a radiopaque stent within the left hemipelvis is noted. IMPRESSION: 1. No acute bony injury of the cervical, thoracic or lumbar spine is identified. The C7 vertebral body cannot be fully evaluated due to limitations of study.2. Multilevel degenerative c hanges throughout the spine as described above. This document has been electronically signed by Oliverio Clayton MD on 03/24/2020 3:59 PM Name Value Range Interpretation Code Description Data Theresa rce(s) Supporting Document(s) ID Date Data Source [id number] 03/24/2020 04:02:04 PM EDT [facility] XR SPINE CERV 2-3 VIEWS [id number] RESUL TInterpreted by:Elliott Brito MDINDICATION: Neck pain.TECHNIQUE: 6 radiographic views of the thoracic and lumbar spine were obtained. 4 views of the cervical spine were obtained.COMPARISON: Cervical MRI from an outside hospital dated 09/22/2019. CT abdomen pelvis 06/19/2019.FINDINGS: The bones are diffusely osteopenic which limits evaluation of the fine bony detail. Cervical spine: The C7 cervical spine is not clearly visualized and cannot be assessed.Multilevel degenerative changes with intervertebral disc space narrowing and osteophyte formation are noted. Alignment is maintained. No acute fracture or traumatic listhesis is identified. Surrounding soft tissues are grossly unremarkable.Thoracic spine: Suboptimal evaluation due to overlying soft tissues and underpenetration of the lateral views. Grossly, no acute fracture or traumatic listhesis is identified. Multilevel degenerative changes with intervertebral disc space narrowing and osteophyte formation is seen throughout the thoracic spine. Vertebral body heights are maintained.Midline sternotomy wires are noted and appear intact. Visualized portions of the lungs are clear except for some mild linear atelectasis or scarring at the right lung base.Lumbar spine: For the purposes of counting, the last fully formed vertebral body is considered L5.No acute fracture or traumatic listhesis is identified. Grade 1 anterior listhesis at L4- L5 is unchanged from prior examinations. Multilevel degenerative changes with intervertebral disc space narrowing and osteophyte formation are noted. Vertebral body heights are maintained.Radiopaque surgical material is seen within the pelvis. Partial visualization of a radiopaque stent within the left hemipelvis is noted. IMPRESSION: 1. No acute bony injury of the cervical, thoracic or lumbar spine is identified. The C7 vertebral body cannot be fully evaluated due to limitations of study.2. Multilevel degenerative changes throughout the spine as described above. This document has been electronically signed by Oliverio Clayton MD on 03/24/2020 3:59 PM Name Value Range Interpretation Code Description Data Theresa rce(s) Supporting Document(s) ID Date Data Source [id number] 03/24/2020 03:58:05 PM T [facility] Name Value Range Interpretation Code Description Data Theresa rce(s) Supporting Document(s) Progress Note [facility] QOFICr8qHsGUBjYf43/UMNytODAlf4LoSCubNAa1KPhdZFGyJ8HuKQW6lJ8kMZQ6LBlQEoQbVhLnAnW7 lbm [file] ID Date Data Source [id number] 03/18/2020 02:33:37 PM EDT [facility] IR AORTOGRAMFINAL RESULTInterpreted by:Berto Bergman, [facility]: 03/16/2020 1. Abdominal aortogram2. Coil embolization of right common iliac artery aneurysm3. Balloon angioplasty of right common iliac artery4. Placement of right common and external iliac artery stent graft5. Placement of left common and external iliac artery stent graft PREPROCEDURE DIAGNOSIS: Bilateral common iliac artery aneurysms POSTPROCEDURE DIAGNOSIS: Bilateral common iliac artery aneurysms SURGEON: Daniel Bergman MD SLOT SHIFT SUPERVISOR: PEPPER Reynolds ANESTHESIA: General HISTORY AND INDICATION: This is a 69-year-old woman with bilateral common iliac artery aneurysms. She now presents for endovascular repair. The risks, benefits, and complications of the procedure were explained to the patient. She expressed understanding and agreed to proceed. PROCEDURE: The patient's lower abdomen and upper thighs were prepped and draped in usual sterile fashion. A micropuncture needle was used to cannulate the left common femoral artery under ultrasound guidance. This was exchanged over a wire for a 5 [place] sheath. A pigtail catheter was then placed over the wire into the abdominal aorta. An aortogram was obtained. A micropuncture needle was then used to cannulate the right common femoral artery under ultrasound guidance. This was exchanged over wire for a 5 [place] sheath. 2 pro-glide devices were placed but not completely deployed. These were then exchanged for a 9 [place] sheath. The patient was then given 7000 units of heparin. An Omni Flush catheter was then used to selectively cannulate the right common iliac artery. It was then advanced over the wire into the right common iliac artery aneurysm. This was exchanged over a wire for a 4 [place] glide catheter. A series of coils was then placed into the right common iliac artery aneurysms. The coils were 13 mm 16 mm and 20 mm in diameter. A final hydro-coil was then placed which was an 8 mm diameter. The coil had some difficulty detaching from its delivery device however it appeared to be detach at the conclusion of the embolization. The severe stenosis of the proximal right common iliac artery was then treated with balloon angioplasty using a 6 mm diameter balloon. A 10 mm diameter by 100 mm length iliac stent graft was then placed in the right common iliac artery extending into the right external iliac artery. It was then deployed. It was postdilated with a 10 mm diameter balloon. A completion aortogram was then performed which was satisfactory. The 5 [place] sheath was then withdrawn. Upon withdrawing the sheath the last coil placed in the right common iliac artery appeared to be attached to the sheath and was being drawn into the left common iliac artery. This was recognized however the coil could not be retrieved because of its anchoring into the right common iliac artery aneurysm. To treat this and to treat the patient's left common iliac artery aneurysm a 7 mm diameter by 59 mm balloon expandable stent was placed in the left common iliac artery aneurysm extending into the left external iliac artery. The stent was postdilated with an 8 mm diameter balloon. A completion aortogram was then performed which was satisfactory. The sheaths were removed and they Pro-glide devices were placed for hemostasis. Sterile dressings were applied. ESTIMATED BLOOD LOSS: Minimal All sponge needle and instrument counts were reported as correct at the end the case. Electronically signed by Daniel Bergman MD03/16/2020 2:21 PM This document has been electronically signed by Daniel Bergman MD on 03/18/2020 2:31 PM Name Value Range Interpretation Code Description Data Theresa rce(s) Supporting Document(s) ID Date Data Source [id number] 03/18/2020 07:29:50 AM EDT [facility] Name Value Range Interpretation Code Description Data [facility] rce(s) Supporting Document(s) Discharge Summary [facility] BXPSHt1aGfCUYuBt62/QALwpAEDcf9CvSDygAYe0QFtfYCCyF1OyNOC9sR3nOTQ3EShHKkRbFsLtPfQp [facility] [file] AgICAgICAgICAgICAgICAgICAgICAgICAgICAgICAgICAgICAgICAgICAgICAgICAgICAgICAgICAgIC AgICAgICAgICAgICAgICAgICAgICAgICAgICAgICAg ICAgICANCiAgICAgICAgICAgICAgICAgICAgICAgICAgICAgICAgICAgICAgICAgICAgICAgICAgICAg ICAgICAgICAgICAgICAgICAgICAgICAgICAgICAgICAgICAgICAgICAgICAgICANCiAgICAgICAgICAg ICAgICAgICAgICAgICAgICAgICAgICAgICAgICAgIC AgICAgICAgICAgICAgICAgICAgICAgICAgICAgICAgICAgICAgICAgICAgICAgICAgICAgICAgICANCi AgICAgICAgICAgICAgICAgICAgICAgICAgICAgICAgICAgICAgICAgICAgICAgICAgICAgICAgICAgIC AgICAgICAgICAgICAgICAgICAgICAgICAgICAgICAg ICAgICAgICANCiAgICAgICAgICAgICAgICAgICAgICAgICAgICAgICAgICAgICAgICAgICAgICAgICAg ICAgICAgICAgICAgICAgICAgICAgICAgICAgICAgICAgICAgICAgICAgICAgICAgICANCiAgICAgICAg ICAgICAgICAgICAgICAgICAgICAgICAgICAgICAgIC AgICAgICAgICAgICAgICAgICAgICAgICAgICAgICAgICAgICAgICAgICAgICAgICAgICAgICAgICAgIC ANCiAgICAgICAgICAgICAgICAgICAgICAgICAgICAgICAgICAgICAgICAgICAgICAgICAgICAgICAgIC AgICAgICAgICAgICAgICAgICAgICAgICAgICAgICAg ICAgICAgICAgICANCiAgICAgICAgICAgICAgICAgICAgICAgICAgICAgICAgICAgICAgICAgICAgICAg ICAgICAgICAgICAgICAgICAgICAgICAgICAgICAgICAgICAgICAgICAgICAgICAgICAgICANCiAgICAg ICAgICAgICAgICAgICAgICAgICAgICAgICAgICAgIC AgICAgICAgICAgICAgICAgICAgICAgICAgICAgICAgICAgICAgICAgICAgICAgICAgICAgICAgICAgIC AgICANCiAgICAgICAgICAgICAgICAgICAgICAgICAgICAgICAgICAgICAgICAgICAgICAgICAgICAgIC AgICAgICAgICAgICAgICAgICAgICAgICAgICAgICAg ICAgICAgICAgICAgICANCjw/bXFzB4wtdXOpwsH3Z1vmVq4OLb1YNT8ts2KuSYVcNRclxuWfRgkBBvVi OWNmJdjHEfg4GGpiJU9DkTRuL6SbV7GfGLrcOG0DFODxPQTtpSAmTZUrGNIkKkY3LXHqFLboBI2AnEWz IFsgNSAwIFIgNyAwIFIgOSAwIFIgMTEgMCBSIDEzID QxMzOiWUxoJJ6Jk2GiaBC8JEn+Jc9NDQ5ji4CuLOozLOEmKS6xeo6MWXtABfUlQ2JzhqQ2HWWuMWChMs 8HQWWhACFacDXsLVFjZSNIMfZkN9CzkZ58ERPVLx5+JNprmwDyEloHEdFeUVKeb0ZkNSc3XP2MXVApPM a1wTLhVCxeG1gaedohQOW6gX6dmqmhOlbzOWE2dkCu VbCFE0ktRRZfLNBZVLHodXI5IrYfXgFfYqGkRQd1VMAqNH5gKPizZP1GTWG0DKxbBDXeHDUnQ1bCRyAz UMEiLHYvsJczZX9DToEbH6ClnpLxoZRmERKmSZARUx5+CAfbkyHbKdkTMkWsYYJqr6JuSQh5SG1BYVMk WYgzFG5SLLJzmI2iWLzdEA5XGpKmPNDfNNUFGwOfD1 6ztGOlQZy0O2XwQpIjMHUtJaabRRDnTXljEhYeDGKgYiUkVNfkZA4+ID4+WUlaFK5MKMnjjfPaHJEyZw 1XMMNfYGVcZS6zSGAzHIMeN5M6vBaiMYJFFiUwH0japrbdMC3tEELxA622uHjpllMnYVEuNWOjEm3GCY JfEWW4RQWupDHdMdncVPCAZCpbKP7MjWEjCAO0gM7z ZQtsQNToJHOmJ7kXDdSxnLiwHG83zXdlioXzyLZcGSj+Yk4MDZ1gh1VwDNk2mdQlDPmiOYVuUNigAFBx HAHvSHIvGQR4HKL3CZFLXnNwPEAtHBZlBZgdFMUvLTBqtz5DQSJpAMCaGEHqHJSjQTUsTVFeQStjPXXk QPWwJVD1NDQmBHErOR2XUeBcVXVvRGPmIVepVXTxFK Ryvg9NDBSySLDfLmi8JhOaXFByCCNtIWerUBZgANOuYSyhTSEmVNIwIX6CQnXqRQTfLBBtPsRwOHMzLO Eftv7DNJEzQIWaQEUyDJQnFHHjGPIuJGseDDLsWNP2QSM3YXRcBMUnBS9UNlVqWXIzKKi3IKkhGEZxSV Oyfg9XHQWaXUGdASf2HOReOZNdNPTtGNbuLXHnJWLz VPQ0XUUeSBRxTP9TAbXrNQNmPTN4PCJsONTeWLImym3HAPYnDRAlPzHcUrJtSDUlXJLkYDezXDPpLLTm FMNzXSAyUTVwVI1JZzJpTMTyUTOvCIbnULAeSQZkuv6TWHOpKCOoIaK6GiZsCKKoVHOxFYadJSRsQEQ6 EtYaYVZuJIGdXV0CLeGcNHWwGMK7MRSnIMAcGLWwmf 6ARKSrRUWpXVQ5YVNtOOVyCIGkYIuwGDDyJDR3PQx7NIAkVMWsDO5UXdQpWZQbNnWeYOUaAKYkTDBzch 5EQKBcENPvRrRrFiXsDNGhQEAiDUuaXNSsJGY8PUErTAUdUAPjIW6XCbGaIVUcZrJ2MHpzTOSkESRydt 7QZFNbQKDcUamwJfOuIJIvHCMlSYnpMEWnBPS5QMLe JEEkSANoEZ6VQcGsHJYlExxdYZmwLVMhIIGvof8LZGQsFKBtJVfqVLYnIIZuXBRrCEavAZXkURJlAGj2 TGEqKAXcXQ2VYyCxCHCsMeLdJZWvJOHqFEKdch4EFEZpMTFmGRZeMfKsBOKpZHOpPEw9xdPdxMDsPBy1 EO4UI7DnstZcPkMQGn1Bi654WWTfTZRtXa4HA1tkWm 2jHAKxWFWTWm6PFQk1AJG6UCFzTkpnEWBvKLO9GSS3WkGkDHO0EsHsLIghBOO+FEb0WcJmDXLfIfZsHb O0XkTiNNpmXoImVIuwBcRmNJToZE4iXFOUKj3+RBltzEYgxRptXKYOKqWxPlK5KSjsDCMASl9M ID Date Data Source [id number] 03/17/2020 06:04:55 AM [facility] Name Value Range Interpretation Code Description Data Theresa rce(s) Supporting Document(s) Hepatitis C virus Ab [Presence] in Serum or Plasma by Immuno assay Non Reactive [facility] No serological evidence of active infect ion. If recent exposure is suspected, test for HCV RNA. ID Date Data Source [id number] 03/17/2020 05:44:22 AM [facility] Name Value Range Interpretation Code Description Data Thersea rce(s) Supporting Document(s) Leukocytes [#/volume] in Blood by Automated count 8.8 10*3/uL 4-10 [facility] Erythrocytes [#/volume] in Blood by Automated count 3.35 10*6/uL 4.1- 5.3 L [facility] Hemoglobin [Mass/volume] in Blood 12.2 g/dL 11.5-15.5 [facility] Hematocrit [Volume Fraction] of Blood by Automated count 36.4 % 3 6-45 [facility] Erythrocyte mean corpuscular volume [Entitic volume] b y Automated count 108.4 fL 80-96 H [facility] Erythrocyte mean corpuscular hemoglobin [Entitic mass] by Automated count 36.5 pg 27-33 H [facility] Erythrocyte mean corpuscular hemoglobin concentration [Mass/volume] by Automated count 33.6 g/dL 32.0-36.0 [facility] Erythrocyte distribution width [Ratio] by Automated count 18.4 % 11.5-14.5 H [facility] Platelets [#/volume] in Blood by Automated count 171 10*3/uL 150-400 [facility] Differential cell count method - Blood [facility] Neutrophils/100 leukocytes in Blood by Automated count 79 % [facility] Lymphocytes/100 leukocytes in Blood by Automated count 15 % [facility] Monocytes/100 leukocytes in Blood by Automated count 2 % [facility] Eosinophils/100 leukocytes in Blood by Automated count 3 % [facility] Basophils/100 leukocytes in Blood by Automated count 1 % [facility] Neutrophils [#/volume] in Blood by Automated count 7.01 10*3/uL 1.8-7 .0 H [facility] Lymphocytes [#/volume] in Blood by Automated count 1.31 10*3/uL 1.2-4 .0 [facility] Monocytes [#/volume] in Blood by Automated count 0.19 10*3/uL 0-0.8 [facility] Eosinophils [#/volume] in Blood by Automated count 0.23 10*3/uL 0-0.5 [facility] Basophils [#/volume] in Blood by Automated count 0.06 10*3/uL 0-0.2 [facility] Nucleated erythrocytes/100 leukocytes [Ratio] in Blood by Automated count 0 /100{WBCs} 0-0 [facility] ID Date Data Source [id number] 03/17/2020 05:57:45 AM EDT [facility] Name Value Range Interpretation Code Description Data Theresa rce(s) Supporting Document(s) Bicarbonate [Moles/volume] in Serum 24 mmol/L 22-29 [facility] Chloride [Moles/volume] in Serum or Plasma 106 mmol/L 98-107 [facility] Creatinine [Mass/volume] in Serum or Plasma 0.82 mg/dL 0.50-0.90 [facility] Glucose [Mass/volume] in Serum or Plasma 93 mg/dL 70-140 [facility] Potassium [Moles/volume] in Serum or Plasma 4.0 mmol/L 3.4-5.1 [facility] Sodium [Moles/volume] in Serum or Plasma 143 mmol/L 136-145 [facility] Urea nitrogen [Mass/volume] in Serum or Plasma 15 mg/dL 8-23 [facility] Anion gap 3 in Serum or Plasma 13 mmol/L 8-15 [facility] Osmolality of Serum or Plasma by calculation 296 mosm/kg 275-300 [facility] Creatinine/Urea nitrogen [Mass Ratio] in Serum or Plasma 19 [facility] Calcium [Mass/volume] in Serum or Plasma 8.4 mg/dL 8.8-10.2 L [facility] Glomerular filtration rate/1.73 sq M pre dicted among non-blacks [Volume Rate/Area] in Serum or Plasma by Creatinine-based formula (MDRD) 71 mL/min/1.73m2 >60 [facility] Glomerular filtration rate/1.73 sq M pre dicted among blacks [Volume Rate/Area] in Serum or Plasma by Creatinine-based formula (MDRD) 82 mL/min/1.73m2 >60 [facility] ID Date Data Source [id number] 03/16/2020 02:21:46 PM EDT [facility] Name Value Range Interpretation Code Description Data Theresa rce(s) Supporting Document(s) Operative Note [facility] TWMBKd7mLyRZMfWd19/GTKmxVAKyz3MnUUpbXOk9LGnxMCPsK3ZoNWG0sS9gPNV8YLbBFcGyGqHgSyJv [facility] [file] KDnxUKVaAYCmNx8fONXPTw7+MYltaJNfyQebZNIEGlCnEUW0DNatIMLRGz7H ID Date Data Source [id number] 03/16/2020 10:43:16 AM EDT [facility] Name Value Range Interpretation Code Description Data Theresa rce(s) Supporting Document(s) Kaolin activated time [Units/volume] in Blood [address] [facility] ID Date Data Source [id number] 03/16/2020 09:24:30 AM EDT [facility] Name Value Range Interpretation Code Description Data Theresa rce(s) Supporting Document(s) History and Physical [facility] XNGJZs3tFgFHOvYa63/AFRcrEMEle5KcQInfFJh7FPjsFDOzU1XtAYY6bQ4dIKI8WTaHIwTnUzOnFmIe lbm [file] AgICAgICAgICAgICAgICAgICAgICAgICAgICAgICAgICAgICAgICAgICAgICANCiAgICAgICAgICAgIC AgICAgICAgICAgICAgICAgICAgICAgICAgICAgICAg ICAgICAgICAgICAgICAgICAgICAgICAgICAgICAgICAgICAgICAgICAgICAgICAgICAgICAgICANCiAg ICAgICAgICAgICAgICAgICAgICAgICAgICAgICAgICAgICAgICAgICAgICAgICAgICAgICAgICAgICAg ICAgICAgICAgICAgICAgICAgICAgICAgICAgICAgIC AgICAgICANCiAgICAgICAgICAgICAgICAgICAgICAgICAgICAgICAgICAgICAgICAgICAgICAgICAgIC AgICAgICAgICAgICAgICAgICAgICAgICAgICAgICAgICAgICAgICAgICAgICAgICANCiAgICAgICAgIC AgICAgICAgICAgICAgICAgICAgICAgICAgICAgICAg ICAgICAgICAgICAgICAgICAgICAgICAgICAgICAgICAgICAgICAgICAgICAgICAgICAgICAgICAgICAN CiAgICAgICAgICAgICAgICAgICAgICAgICAgICAgICAgICAgICAgICAgICAgICAgICAgICAgICAgICAg ICAgICAgICAgICAgICAgICAgICAgICAgICAgICAgIC AgICAgICAgICANCiAgICAgICAgICAgICAgICAgICAgICAgICAgICAgICAgICAgICAgICAgICAgICAgIC AgICAgICAgICAgICAgICAgICAgICAgICAgICAgICAgICAgICAgICAgICAgICAgICAgICANCiAgICAgIC AgICAgICAgICAgICAgICAgICAgICAgICAgICAgICAg ICAgICAgICAgICAgICAgICAgICAgICAgICAgICAgICAgICAgICAgICAgICAgICAgICAgICAgICAgICAg ICANCiAgICAgICAgICAgICAgICAgICAgICAgICAgICAgICAgICAgICAgICAgICAgICAgICAgICAgICAg ICAgICAgICAgICAgICAgICAgICAgICAgICAgICAgIC AgICAgICAgICAgICANCiAgICAgICAgICAgICAgICAgICAgICAgICAgICAgICAgICAgICAgICAgICAgIC AgICAgICAgICAgICAgICAgICAgICAgICAgICAgICAgICAgICAgICAgICAgICAgICAgICAgICANCjw/eH WmI1vnkYYsoyZ0M0uhNp3WNf8DXW1el2XnNDBbFQpn ugPbLirEMtRmMNUmNiyCXaq1VDsaET7IdVNdA4CoS3CmGIxrPA0JVISmKZDzmVCePLEsBHPmBjG9CYSt SPyfYT6WyVXxVVafUOGjPWDzNyAnZYYhDYYdPQPuOQDyOINJFFEtPLZjHjYoYFngDP5Np0OieNW7DWd+ Nd1NAV6ik5KfLUtoPCKpNK6fsy2FHCeRGqXbR8Fliy I5PLM6SWDzDl5JCXJsMWJzmQHzYZJlIHKWYqBdG3MlmY40CKGSVa1+WBhifxAvLmxHEbQ4PBDxt0ZdMK e6MO2BHJXoDQq8oIEvZPPUJPM1JCijaHsiLStaQFxoLKKpFETKZCT2RPDlRTRdStTcAHHyIRy9GREBFZ oBPlMqK0Sdq1KhZpB9IUYvHaWzRVihODLjUuT9GE98 bFhlNE6RYPGzSCZpWN63JTY6ONTlHw5TOk5YOxGtJK5ecq3EIGPpRYWeFekLChh5OWzrHS2GyUZdL0Cc gZJsj4hPEhCpR7DNFMV2CVRcLo8LVMQiRvAnGXGbVLxcJO8pNABuOVTXpRyqhvG7BX2YIL9vweLgWA9Z OrWfFi4yBv1VEkWhY1OqX2RjESGvYSQDXQdfOP3NWB wmVJ7bKK4Ze2BXuGTklH9ypt0QXLZiFOKhGmpmim0BCjqgH8B3zWugETSvFmyiPYGWXDghZN0DLZAmHX I0QCAuWlNyNDSRUlQsX97fTW8GK8Hpl86yZqW8ATTbUaOkWWmnVM70nTzbvmHdoAMgdMptLJ2PXi9+DQ plbmRvYmoNCnhyZWYNCjAgNDENCjAwMDAwMDAwMDAg LhV7VuHoIj8RANKaZPLpPRIoHsIdPXXqTTPrSBeaNBTzVQT4DkU1TSAyGHLaMC1QNnWvIBFiOCy2SXGp TWGqROZhyd1GAFDiABZyOYX9LbLvRHCaWZVhHZlhRHBqEYLrWlsfEUXdYCQsQL4GLwJvKMDvCLR9HVFu ZBFcIDRdty1YSFWjIVWoTxX5NNTwZASmAZMaXXdqEX QuQQB5AUN3TPSyZRWjMI7AXlTwKKGpQGz4UAMgHUPaFNNyfl3PVPSuKMHhIZw9ZOCaORDtADIqWFvdVM VqJSVuBXL6PCJbAMEfEX8XNxFpBWIfGZBtIyPhUXKlGZMcgc4MCBCeIOBeONr5NvLtAGGeWDRmYWuoDH MdVOW9QFo2YGHkAJEpLH9QYtLcBAArNUF9VYhiFYWz FYVnzj3YIQXjRXIiXrI9TOXwANRkXGOlQZveCSNiNMK7PgI9RGElPUJcIW8NOgXvNIQeEFyhXRwlBJBl VAKhwf5ZLYRpTHCgCpG9MCOoBDLgDBUcVDnqIRBnEEL1Iuh7JFYwMZFiCT1GPiIsDMBuQRg1WlnkHWYl FATzmy1ZSXWmSJOlSPkdSBUlQWCuOBXrVIyeEGCcJM A4MTO2IYYsACUlIZ6VHqHnDGVgDbC6DTOlVPRlTTMmyw0EIGKvXGRrLGduJSOsFMIfJIQrCMknSYAzWV ZdVWS9UMIiGOQpDM9MUzCcUHHcWkYxMyuhZITrMMSgbk5MEREuEKOhQYCiRFKgZVEbGDGeJBnkYIWhDG SlIcH5MKDhIGGiJL5LVyIrOIZpJbB0LIMqMTVlEJVj qp6DQAGuCZRvTgRtTETaSGIkOBLgOQonNAJeWYB1BpgsMLZsYVWxGQ7WYyLfLDBmTZUaVYeiFYPgOUWq ce1DIKLjALE0PvBbWOYwNLNrLJIjWEslXRIuQFW5ZVEtKAKoVTSjHJ1FWxPcDAPrXHD3PZdnTSScTULh kw5JSWWjRZP3PmM2NxUrUVSuZIDzDOrlZVQdDLA8Vo AzBYCfVBBwVZ2TGbLgDOJwYZo8RYWiAAGbGBQlvx0XTXQhTBI9GGmcMAKiBXZmXZGlHAr6rhEulPMgLC w2XY2BW1StrgMyORCSFk0Xr315MLYkKTJuAg7YD8cpRu0kXIEaDSRMRw6BELt2WUQ2XvD0CIZ3A1NoHq NqU9X3Z8XkGVobI6MkMHEwRtw+IDwxNTlmNTQxNjhj KLY2QRN8RfPdHhDwN5I0R5V4LgNkZd8oPMQWWo9+PHrvoHPnsHbuGKJYBnJ3INRnSDyuOYJFHj2G ID Date Data Source [id number] 03/16/2020 12:44:53 PM EDT [facility] Name Value Range Interpretation Code Description Data Theresa rce(s) Supporting Document(s) ABO and Rh group [Type] in Blood [facility] Blood group antibody screen [Presence] in Serum or Plasma [facility] 03/19/2020,0000Performed at [facility] Joann perez [place], [place] ID Date Data Source [id number] [facility] Value Range Interpretation Code Description Data Theresa rce(s) Supporting Document(s) Bicarbonate [Moles/volume] in Serum 25 mmol/L 22-29 [facility] Chloride [Moles/volume] in Serum or Plasma 108 mmol/L 98-107 H [facility] Creatinine [Mass/volume] in Serum or Plasma 1.04 mg/dL 0.50-0.90 H [facility] Glucose [Mass/volume] in Serum or Plasma 128 mg/dL 70-140 [facility] Potassium [Moles/volume] in Serum or Plasma 5.0 mmol/L 3.4-5.1 [facility] Sodium [Moles/volume] in Serum or Plasma 144 mmol/L 136-145 [facility] Urea nitrogen [Mass/volume] in Serum or Plasma 21 mg/dL 8-23 [facility] Anion gap 3 in Serum or Plasma 11 mmol/L 8-15 [facility] Osmolality of Serum or Plasma by calculation 303 mosm/kg 275-300 H [facility] Creatinine/Urea nitrogen [Mass Ratio] in Serum or Plasma 20 [facility] Calcium [Mass/volume] in Serum or Plasma 9.4 mg/dL 8.8-10.2 [facility] Glomerular filtration rate/1.73 sq M pre dicted among non-blacks [Volume Rate/Area] in Serum or Plasma by Creatinine-based formula (MDRD) 53 mL/min/1.73m2 >60 L [facility] Glomerular filtration rate/1.73 sq M pre dicted among blacks [Volume Rate/Area] in Serum or Plasma by Creatinine-based formula (MDRD) 62 mL/min/1.73m2 >60 [facility] ID Date Data Source [id number] 03/16/2020 10:42:04 AM EDT [facility] Name Value Range Interpretation Code Description Data Theresa rce(s) Supporting Document(s) Leukocytes [#/volume] in Blood by Automated count 9.9 10*3/uL 4-10 [facility] Erythrocytes [#/volume] in Blood by Automated count 4.11 10*6/uL 4.1- 5.3 [facility] Hemoglobin [Mass/volume] in Blood 14.9 g/dL 11.5-15.5 [facility] Hematocrit [Volume Fraction] of Blood by Automated count 44.3 % 3 6-45 [facility] Erythrocyte mean corpuscular volume [Entitic volume] b y Automated count 107.9 fL 80-96 H [facility] Erythrocyte mean corpuscular hemoglobin [Entitic mass] by Automated count 36.3 pg 27-33 H [facility] Erythrocyte mean corpuscular hemoglobin concentration [Mass/volume] by Automated count 33.7 g/dL 32.0-36.0 [facility] Erythrocyte distribution width [Ratio] by Automated count 18.8 % 11.5-14.5 H [facility] Platelets [#/volume] in Blood by Automated count 231 10*3/uL 150-400 [facility] Confirmed ID Date Data Source [id number] [facility] : NoneMicroorganism XXX Cult : 2019 nCoV Real-Time RT-PCR: NOT DETECTEDThis test method was designed to detect the causative agent of COVID-19. The Dept. of Pathology [facility] has Emergency Use Authorization (EUA) from the FDA to peform this test to allow for rapid response during a declared public health emergency.Initial validation was performed by the Centers for Disease Control and Prevention (CDC) and additionally validated by the Dept. of Pathology [facility]. Negative results do not preclude SARS-CoV-2 infection and should not be used as the sole basis for patient management decisions.Additional information is available on the following FDA websites for health care providers and patients. https://www.fda.gov/media/344089/download, ht tps://www.fda.gov/media/215834/download. Name Value Range Interpretation Code Description Data Theresa rce(s) Supporting Document(s) ID Date Data Source [id number] 03/14/2020 05:34:00 PM [facility] Cmnt XXX-Imp : NoneMicroorganism XXX Cult : 2019 nCoV Real-Time RT-PCR: NOT DETECTEDThis test method was designed to detect the causative agent of COVID-19. The Dept. of Pathology [facility] has Emergency Use Authorization (EUA) from the FDA to peform this test to allow for rapid response during a declared public health emergency.Initial validation was performed by the Centers for Disease Control and Prevention (CDC) and additionally validated by the Dept. of Pathology [facility]. Negative results do not preclude SARS-CoV-2 infection and should not be used as the sole basis for patient management decisions.Additional information is available on the following FDA websites for health care providers and patients. https://www.fda.gov/media/080811/download, ht tps://www.fda.gov/media/813589/download. Name Value Range Interpretation Code Description Data Theresa rce(s) Supporting Document(s) Microorganism identified in Unspecified specimen by [facility] This lab was ordered by [facility] and reported by [facility]. ID Date Data Source [id number] 03/14/2020 02:18:56 PM EDT [facility] Name Value Range Interpretation Code Description Data Theresa rce(s) Supporting Document(s) Progress Note [facility] [id number]/VCGyqDAEec7QfPDrzCLq9DAmtMFWiW2AaLWH8vV0xYQY0DBeCXqWgKbNjSbL0 m [file] E2GNRtILUjSgZ+PK6uCCv+Ru1Fh3QgucP0teIhEDxkPJe5Xc2QFABGE8YPRz== ID Date Data Source [id number] 02/18/2020 02:25:00 PM EDT [facility] Name Value Range Interpretation Code Description Data Theresa rce(s) Supporting Document(s) Progress Note [facility] [id number]/VKLxlXOLma8CvXRgeFBo2XCctBYKsF5OzTLN3aH9mADB8DYhYKyFeDhJtXVV2 lbm [file] Cj4+EMevjGPtlBrkIZWYLeK0PJS4RPciFNNOIa0O ID Date Data Source [id number] 12/22/2019 02:51:33 PM EDT [facility] Name Value Range Interpretation Code Description Data Theresa rce(s) Supporting Document(s) [facility] [id number]yuzo7C7T4nBAxR7ZhoDLzs7xlY8OoL8DyNQNhNXTQDP8BiEAv jb2 [file] MDQwOSAwMDAwMCBuIAowMDAwMDAwNTIzIDAwMDAwIG 5xNcQlSRMuBSK0HZCeEDIaAXMwgcCIFKWwQIBzWLk6RKZeWTVgUOXbUArkYJBhCYOvWWC2ZPNdHLNgXH 4gOuZyZWVeIYV0JjRmPTRbJFVxzgGRGLDeNEQvPEU9AsQcDGVgWRAvJMeuTKSzBYRrINugELOoVULhZV 4gCjAwMDAwMDEyOTcgMDAwMDAgbiAKMDAwMDAwMTQw QyOzQMXjGMCtAMaxPEPsMSNdIcD9XVScRKHxEM1tJpWePSExYUM7OTvqWAEdPDKsluSYZQHuLLOpAYvd UUEvSBIeNAZxSGdyJWZqLBZnHYC7BCVvHIAqUI5wHiTfNDYrNPGzXCWsSgJ1VpUtCgRMyBEqqKzwdrl0 YNdqA4z1TRGyCQwvUZ6hakRcBLJqIwjfOj1ogBU6HUDiVjoMNr2Ar1UzfyA0ycGuGvXvECQ5XiVaFV0D ID Date Data Source [id number] 12/16/2019 02:10:[address] [facility] Name Value Range Interpretation Code Description Data Theresa rce(s) Supporting Document(s) COMPREHENSIVE METABOLIC PANEL [facility] COMPREHENSIVE METABOLIC PANEL Sodium [Moles/volume] in Serum or Plasma 145 mEq/L 134 - 153 [facility] Potassium [Moles/volume] in Serum or Plasma 4.1 mEq/L 3.6 - 5.0 [facility] Chloride [Moles/volume] in Serum or Plasma 105 mEq/L 98 - 107 [facility] Carbon dioxide, total [Moles/volume] in Serum or Plasma 30 MEQ/L 22 - 30 [facility] Glucose [Mass/volume] in Serum or Plasma 101 MG/DL 65 - 110 [facility] BUN 26 MG/DL 7 - 21 H [facility] al Creatinine [Mass/volume] in Serum or Plasma 0.8 MG/DL 0.7 - 1.5 [facility] BUN/CREAT 33 8 - 27 H [facility] Protein [Mass/volume] in Serum or Plasma 6.9 G/DL 6.3 - 8.2 [facility] Albumin [Mass/volume] in Serum or Plasma 4.4 G/DL 3.9 - 5.0 [facility] Globulin [Mass/volume] in Serum by calculation 2.5 GM/DL 2.4 - 3.2 [facility] A/G RATIO 1.8 0.8 - 2.0 [facility] Calcium [Mass/volume] in Serum or Plasma 9.7 MG/DL 8.4 - 10.2 [facility] Bilirubin.total [Mass/volume] in Serum or Plasma 0.7 MG/DL 0.2 - 1.3 [facility] Alkaline phosphatase [Enzymatic activity/volume] in Serum or Plasma 93 U/L 38 - 126 [facility] Aspartate aminotransferase [Enzymatic activity/volume] in Serum or Plasma 25 U/L 5 - 40 [facility] Alanine aminotransferase [Enzymatic activity/volume] in Seru m or Plasma 45 U/L 7 - 56 [facility] Anion gap 3 in Serum or Plasma 10.0 mmol/L 8.0 - 16.0 [facility] AGE 69 yrs [facility] al NON-AA GFR >60 mL/min [facility] ital AFR AMER GFR >60 [facility] Male GFR In terprentation 20-49 yrs >60 mL/min Normal 50-59 yrs >56 mL/min Normal 60-69 yrs >49 mL/min Normal 70-79yrs >42 mL/min Normal 80 and above >35 mL/min Normal Female GFR Interpretation 20-39 yrs >60 mL/min Normal 40-49 yrs >58 mL/min Normal 50-59 yrs >51 mL/min Normal 60-69 yrs >45 mL/min Normal 70-79 yrs >39 mL/min Normal 80 and above >32 mL/min Normal ID Date Data Source [id number] 12/16/2019 02:10:[address] [facility] Name Value Range Interpretation Code Description Data Theresa rce(s) Supporting Document(s) C reactive protein [Mass/volume] in Serum or Plasma by High sensitivity method 0.89 MG/L 1.00 - 3.00 L [facility]/S HS-CRP CUT-OFF: RELATIVE RISK: <1.0 mg/L Low 1.0 - 3.0 mg/L Average >3.0 mg/L High Optimally, the average of HS-CRP results repeated two weeks apart should be used for risk assessment. ID Date Data Source [id number] 12/16/2019 11:05:[address] [facility] Name Value Range Interpretation Code Description Data Theresa rce(s) Supporting Document(s) Erythrocyte sedimentation rate by Westergren method 1 mm/hr 0 - 30 [facility] SED RATE REENTER 1 [facility] ID Date Data Source [id number] 12/16/2019 09:42:[address] [facility] Name Value Range Interpretation Code Description Data Theresa rce(s) Supporting Document(s) CBC W/AUTOMATED DIFF [facility] COMPLETE BLOOD COUNT Leukocytes [#/volume] in Blood by Automated count 10.2 10^3/uL 4.2 - 11.0 [facility] Erythrocytes [#/volume] in Blood by Automated count 4.98 10^6/uL 4. 20 - 5.40 [facility] Hemoglobin [Mass/volume] in Blood 14.8 g/dL 12.0 - 16.0 [facility] Hematocrit [Volume Fraction] of Blood by Automated count 48.7 % 3 7.0 - 47.[address] [facility] Erythrocyte mean corpuscular volume [Entitic volume] by Auto mated count 97.8 fL 81.0 - 101 [facility] Erythrocyte mean corpuscular hemoglobin [Entitic mass] by Automated count 29.7 pg 27.0 - 34.0 [facility] Erythrocyte mean corpuscular hemoglobin concentration [Mass/volume] by Automated count 30.4 g/dL 31.0 - 36.[address] [facility] Erythrocyte distribution width [Ratio] by Automated count 19.1 % 11.5 - 14.[address] [facility] Platelets [#/volume] in Blood by Automated count 204 10^3/uL 150 - [address] [facility] Platelet mean volume [Entitic volume] in Blood by Automated count 9.6 fL 7.4 - 10.4 [facility] Neutrophils/100 leukocytes in Blood by Automated count 81.9 % 37. 0 - 80.[address] [facility] Lymphocytes/100 leukocytes in Blood by Manual count 11.2 % 25.0 - 40.[address] [facility] Monocytes/100 leukocytes in Blood by Automated count 5.2 % 3.0 - 8.0 [facility] Eosinophils/100 leukocytes in Blood by Automated count 0.8 % 0.0 - 7.0 [facility] Basophils/100 leukocytes in Blood by Automated count 0.4 % 0.0 - 2.5 [facility] %IG 0.5 % 0.0 - 0.0 [facility] %NRBC 0.0 % 0.0 - 0.0 [facility] al Neutrophils [#/volume] in Blood by Automated count 8.36 10^3/uL 2.00 - 6.[address] [facility] Lymphocytes [#/volume] in Blood by Automated count 1.14 10^3/uL 0.60 - 3.40 [facility] Monocytes [#/volume] in Blood by Automated count 0.53 10^3/uL 0.00 - 0.90 [facility] Eosinophils [#/volume] in Blood by Automated count 0.08 10^3/uL 0.00 - 0.70 [facility] Basophils [#/volume] in Blood by Automated count 0.04 10^3/uL 0.00 - 0.20 [facility] #IG 0.05 10^3/uL 0.00 - 0.10 [facility] ospital #NRBC 0.00 10^3/uL 0.00 - 0.00 [facility] ospital MANUAL DIFF NOT INDICATED [facility] RBC MORPH NOT INDICATED [facility] spital ID Date Data Source [id number] 11/07/2019 08:14:[address] [facility] Name Value Range Interpretation Code Description Data Theresa rce(s) Supporting Document(s) Service comment COMMENT [facility] The QuantiFERON-TB Gold Plus result is d etermined by subtractingthe Nil value from either TB antigen (Ag) tube. The mitogen tubeserves as a control for the test. Mycobacterium tuberculosis stimulated ga mma interferon [Units/volume] corrected for background in Blood 0.02 IU/mL [facility] QuantiFERON TB2 Ag Value 0.01 IU/mL [facility] Gamma interferon background [Units/volume] in Blood by Immunoass ay 0.01 IU/mL [facility] Mitogen stimulated gamma interferon [Units/volume] in Blood >10.00 IU /mL [facility] Mycobacterium tuberculosis stimulated gamma interferon [Presence] in Blood Negative Negative [facility] The specimen received for QuantiFERON te sting was incubated by [facility]. Specific procedures outlined in our Directoryof Services and in the package insert for the QuantiFERON Gold(In Tube) test must be followed to enable for proper stimulation ofcells for the production of interferon gamma. ID Date Data Source [id number] 11/05/2019 05:14:00 PM [facility] Name Value Range Interpretation Code Description Data Theresa rce(s) Supporting Document(s) Sjogrens syndrome-A extractable nuclear Ab [Units/volume] in Serum <0.2 AI 0.0-0.9 [facility] Sjogrens syndrome-B extractable nuclear Ab [Units/volume] in Serum <0.2 AI 0.0-0.9 [facility] ID Date Data Source [id number] 11/05/2019 09:33:00 AM [facility] Value Range Interpretation Code Description Data Theresa rce(s) Supporting Document(s) Hepatitis C virus Ab Signal/Cutoff in Serum or Plasma by Immunoassay 0.1 s/coratio 0.0-0.9 [facility] ID Date Data Source [id number] 11/05/2019 09:33:00 AM [facility] Value Range Interpretation Code Description Data Theresa rce(s) Supporting Document(s) Hepatitis B virus core IgM Ab [Presence] in Serum or P lasma by Immunoassay Negative Negative [facility] Hepatitis B virus core Ab [Presence] in Serum or Plasma by I mmunoassay Negative Negative [facility] ID Date Data Source [id number] 11/04/2019 10:58:00 AM [facility] Name Value Range Interpretation Code Description Data Theresa rce(s) Supporting Document(s) C reactive protein [Mass/volume] in Serum or Plasma by High sensitivity method 10.02 MG/L 1.00 - 3.[address] [facility] CDC/S HS-CRP CUT-OFF: RELATIVE RISK: <1.0 mg/L Low 1.0 - 3.0 mg/L Average >3.0 mg/L High Optimally, the average of HS-CRP results repeated two weeks apart should be used for risk assessment. ID Date Data Source [id number] 11/04/2019 10:58:00 AM [facility] Name Value Range Interpretation Code Description Data Theresa rce(s) Supporting Document(s) COMPREHENSIVE METABOLIC PANEL [facility] COMPREHENSIVE METABOLIC PANEL Sodium [Moles/volume] in Serum or Plasma 144 mEq/L 134 - 153 [facility] Potassium [Moles/volume] in Serum or Plasma 4.1 mEq/L 3.6 - 5.0 [facility] Chloride [Moles/volume] in Serum or Plasma 104 mEq/L 98 - 107 [facility] Carbon dioxide, total [Moles/volume] in Serum or Plasma 28 MEQ/L 22 - 30 [facility] Glucose [Mass/volume] in Serum or Plasma 135 MG/DL 65 - [address] [facility] BUN 19 MG/DL 7 - 21 [facility] al Creatinine [Mass/volume] in Serum or Plasma 0.9 MG/DL 0.7 - 1.5 [facility] BUN/CREAT 21 8 - 27 [facility] Protein [Mass/volume] in Serum or Plasma 7.8 G/DL 6.3 - 8.2 [facility] Albumin [Mass/volume] in Serum or Plasma 4.4 G/DL 3.9 - 5.0 [facility] Globulin [Mass/volume] in Serum by calculation 3.4 GM/DL 2.4 - 3.[address] [facility] A/G RATIO 1.3 0.8 - 2.0 [facility] Calcium [Mass/volume] in Serum or Plasma 10.1 MG/DL 8.4 - 10.2 [facility] Bilirubin.total [Mass/volume] in Serum or Plasma <0.7 MG/DL 0.2 - 1.3 [facility] Alkaline phosphatase [Enzymatic activity/volume] in Serum or Plasma 121 U/L 38 - 126 [facility] Aspartate aminotransferase [Enzymatic activity/volume] in Serum or Plasma 21 U/L 5 - 40 [facility] Alanine aminotransferase [Enzymatic activity/volume] in Seru m or Plasma 12 U/L 7 - 56 [facility] Anion gap 3 in Serum or Plasma 12.0 mmol/L 8.0 - 16.0 [facility] AGE 69 yrs [facility] NON-AA GFR >60 mL/min [facility] ital AFR AMER GFR >60 [facility] Male GFR In terprentation 20-49 yrs >60 mL/min Normal 50-59 yrs >56 mL/min Normal 60-69 yrs >49 mL/min Normal 70-79yrs >42 mL/min Normal 80 and above >35 mL/min Normal Female GFR Interpretation 20-39 yrs >60 mL/min Normal 40-49 yrs >58 mL/min Normal 50-59 yrs >51 mL/min Normal 60-69 yrs >45 mL/min Normal 70-79 yrs >39 mL/min Normal 80 and above >32 mL/min Normal ID Date Data Source [id number] 11/04/2019 10:58:00 AM [facility] Name Value Range Interpretation Code Description Data Theresa rce(s) Supporting Document(s) Hepatitis B virus surface Ab [Units/volume] in Serum o r Plasma by Immunoassay NONREACTIVE NORMAL:NON REACTIVE [facility] ID Date Data Source [id number] 11/04/2019 10:37:00 AM [facility] Name Value Range Interpretation Code Description Data Theresa rce(s) Supporting Document(s) Erythrocyte sedimentation rate by Westergren method 7 mm/hr 0 - 30 [facility] SED RATE REENTER 7 [facility] ID Date Data Source [id number] 11/04/2019 10:12:00 AM [facility] Name Value Range Interpretation Code Description Data Theresa rce(s) Supporting Document(s) CBC W/AUTOMATED DIFF [facility] COMPLETE BLOOD COUNT Leukocytes [#/volume] in Blood by Automated count 11.7 10^3/uL 4.2 - 11.[address] [facility] Erythrocytes [#/volume] in Blood by Automated count 4.93 10^6/uL 4. 20 - 5.40 [facility] Hemoglobin [Mass/volume] in Blood 13.9 g/dL 12.0 - 16.0 [facility] Hematocrit [Volume Fraction] of Blood by Automated count 45.4 % 3 7.0 - 47.0 [facility] Erythrocyte mean corpuscular volume [Entitic volume] by Auto mated count 92.1 fL 81.0 - 101 [facility] Erythrocyte mean corpuscular hemoglobin [Entitic mass] by Automated count 28.2 pg 27.0 - 34.0 [facility] Erythrocyte mean corpuscular hemoglobin concentration [Mass/volume] by Automated count 30.6 g/dL 31.0 - 36.[address] [facility] Erythrocyte distribution width [Ratio] by Automated count 13.2 % 11.5 - 14.5 [facility] Platelets [#/volume] in Blood by Automated count 334 10^3/uL 150 - [address] [facility] Platelet mean volume [Entitic volume] in Blood by Automated count 9.5 fL 7.4 - 10.4 [facility] Neutrophils/100 leukocytes in Blood by Automated count 82.6 % 37. 0 - 80.[address] [facility] Lymphocytes/100 leukocytes in Blood by Manual count 12.4 % 25.0 - 40.[address] [facility] Monocytes/100 leukocytes in Blood by Automated count 3.5 % 3.0 - 8.0 [facility] Eosinophils/100 leukocytes in Blood by Automated count 0.9 % 0.0 - 7.0 [facility] Basophils/100 leukocytes in Blood by Automated count 0.3 % 0.0 - 2.5 [facility] %IG 0.3 % 0.0 - 0.0 [facility] %NRBC 0.0 % 0.0 - 0.0 [facility] al Neutrophils [#/volume] in Blood by Automated count 9.61 10^3/uL 2.00 - 6.[address] [facility] Lymphocytes [#/volume] in Blood by Automated count 1.45 10^3/uL 0.60 - 3.40 [facility] Monocytes [#/volume] in Blood by Automated count 0.41 10^3/uL 0.00 - 0.90 [facility] Eosinophils [#/volume] in Blood by Automated count 0.11 10^3/uL 0.00 - 0.70 [facility] Basophils [#/volume] in Blood by Automated count 0.04 10^3/uL 0.00 - 0.20 [facility] #IG 0.04 10^3/uL 0.00 - 0.10 [facility] ospital #NRBC 0.00 10^3/uL 0.00 - 0.00 [facility]spital MANUAL DIFF NOT INDICATED [facility] RBC MORPH NOT INDICATED [facility] spital ID Date Data Source [id number] 10/19/2019 10:04:00 AM [facility] Patient Name: Britney Juarez DO B: 1950 Sex: F Pt Unit #: [id number] Location:[facility] Provider: Visit Date/Time: 10/19/19 Primary Insurance: [employer] MEDICARE Secondary Insurance: Self Pay Intake Vital Signs 10/19/19 10:05 Current Height 5 ft 2 in Current Weight 152 lb BMI 27.8 BP 160/90 Blood Pressure Location Lt brachial Position Sitting Respiration 18 Pulse 86 Pulse Strength Normal Pulse Source Pulse Oximeter Temp 98.3 F Temp Source Oral Pulse Oximetry (%) 99 Oxygen Delivery Method room air Intake Visit Reasons: Medication check Nurse Note: pt is here today for medication recheck and refill pt is here today complaining of all the pain she is in she does have follow [place] [place] Is patient in pain?: Yes (all over pain ) Pain scale (1-10): 6 Allergies naproxen [From Naprosyn] Allergy (Severe, Unverified 07/06/19 16:04) Hives fenofibrate Adverse Reaction (Intermediate, Unverified 07/20/19 13:29) skin rash zolpidem [From Ambien] Adverse Reaction (Intermediate, Unverified 07/20/19 13:28) hallucinations eszopiclone [From Lunesta] Adverse Reaction (Unverified 07/20/19 13:27) hallucinations tramadol Adverse Reaction (Unverified 07/20/19 13:26) hallucination Medications acetaminophen 325 mg PO DAILY atorvastatin 20 mg PO QDAY diclofenac sodium 1% 2 grams topical QID hydrocodone-acetaminophen 5-325 mg 1 tab PO TID PRN MDD 3 metoprolol tartrate 100 mg PO QDAY potassium chloride ER 40 mEq (2 x 20 mEq) PO QDAY Fall Risk History of falls: No Ambulatory Aid:: None Gait/Transferring:: Normal Medications:: Antihypertensives HIV Testing Offer - ages 13-64 Requirement for HIV testing offer been met?: Not in age range P FSH Social History Does the Patient have a Healthcare Proxy: No Does Patient have a DNR?: No Does Patient have a Living Will?: No HPI Additional HPI HPI Details: RECHECK. NEEDS MED REFILLS. C/O SEVERE PAIN IN NECK BACK. HAS APPT WITH ORTHO IN [place] NEXT WEEK WOULD LIKE SOMETHING FOR PAIN. Review of Systems Const All systems reviewed are unremarkable except as noted in HPI and below Reports system reviewed and no additional complaints, except as documented ENT Reports system reviewed and no additional complaints, except as documented Card Reports system reviewed and no additional complaints, except as documented Resp Reports system reviewed and no additional complaints, except as documented GI Reports system reviewed and no additional complaints, except as documented Reports system reviewed and no additional complaints, except as documented Musc Details: SEVERE PAIN IN NECK AND BACK. HAS APPT WITH ORTHO IN [place] NEXT WEEK. Skin/Breast Reports system reviewed and no additional complaints, except as documented Neuro Reports system reviewed and no additional complaints, except as documented Psych Reports system reviewed and no additional complaints, except as documented Endo Reports system reviewed and no additional complaints, except as documented Haroldo/Lymph Reports system reviewed and no additional complaints, except as documented Exam Const General: cooperative Nutritional Appearance: average body habitus Orientation: alert and oriented x3 HENMT Head: normal to inspection Ears: hearing grossly normal bilaterally Face and sinus: normal facial exam Throat: posterior oropharynx normal Neck Neck: normal visual inspection and tender Neck mass: No Thyroid: thyroid normal Lymphatic: no lymphadenopathy noted Other: DECREASED ROM CERVICAL SPINE D/T PAIN Resp Effort Inspection: normal respiratory effort Auscultation: clear to auscultation bilaterally Cardio Rate: regular rate Rhythm: regular rhythm GI Inspection: Yes normal to inspection Palpation: soft Auscultation: normal bowel sounds General: No CVA tenderness Musc Cervical Spine: cervical muscular tenderness and pain with cervical ROM Thoracic/Lumbar Spine: thoracic and lumbar spine normal to inspection Skin Lesions: no lesions Rashes: no rashes Neuro General: alert and oriented x3 Cranial Nerves: CN's II-XII intact bilaterally Extrem General: normal to inspection Assessment Plan Assessment Plan (1) Encounter for medication adjustment: Code(s): Z51.89 - Encounter for other specified aftercare (2) Cervicalgia: Status: Acute Code(s): M54.2 - Cervicalgia SNOMED Code(s): 23524221 Category: Medical (3) Hyperlipidemia: Status: Acute Code(s): E78.5 - Hyperlipidemia, unspecified SNOMED Code(s): 89433476 Category: Medical (4) Hypertension: Status: Acute Code(s): I10 - Essential (primary) hypertension SNOMED Code(s): 89108831 Category: Medical (5) Coronary artery disease: Status: Acute Code(s): I25.10 - Atherosclerotic heart disease of [place] coronary artery without angina pectoris SNOMED Code(s): 55455014 Category: Medical Orders Other Medications: New: hydrocodone-acetaminophen 5-325 mg 1 tab PO TID PRN 30 tabs 0RF pain MDD 3 Instructions: DASH Eating Plan (GEN) Hypertension (GEN) Electronically Signed By: <Electronically signed by Maria Luisa Elizondo > Date/Time Signed: 10/19/19 1040 Name Value Range Interpretation Code Description Data Theresa rce(s) Supporting Document(s) Procedure Social History Code Duration Value Status Description Data Source(s ) Smoking 10/26/2020 12:00:00 AM EST Former Smoker completed Former Smoker eCW1 ([facility]) Smoking 10/26/2020 12:00:00 AM EST Former Smoker completed Former Smoker eCW1 ([facility]) Smoking 09/22/2020 12:00:00 AM EST Former Smoker completed Former Smoker eCW1 ([facility]) Smoking 09/22/2020 12:00:00 AM EST Former Smoker completed Former Smoker eCW1 ([facility]) Smoking 09/22/2020 12:00:00 AM EST Former Smoker completed Former Smoker eCW1 ([facility]) Smoking 09/21/2020 12:00:00 AM EST Former Smoker completed Former Smoker eCW1 ([facility]) Smoking 08/10/2020 12:00:00 AM EST Former Smoker completed Former Smoker eCW1 ([facility]) Smoking 05/22/2020 03:36:00 PM EDT Former Smoker completed Former Smoker [facility] Alcohol intake 03/24/2020 12:00:00 AM EDT Ex-drinker (finding) comp leted Ex- drinker (finding) [facility] Tobacco use and exposure 03/24/2020 12:00:00 AM EDT Never used co mpleted Never used [facility] Cigarette pack-years 03/24/2020 12:00:00 AM EDT UNK [facility] Cigarettes smoked current (pack per day) - Reported 03/24/20 12:00:00 AM EDT UNK completed [facility] Smoking 03/24/2020 12:00:00 AM EDT Former smoker completed Former smoker [facility] Cigarette pack-years 03/24/2020 12:00:00 AM EDT UNK [facility] Cigarettes smoked current (pack per day) - Reported 03/24/20 12:00:00 AM EDT UNK completed [facility] Smoking 03/24/2020 12:00:00 AM EDT Former smoker completed Former smoker [facility] Alcohol intake 03/16/2020 12:00:00 AM EDT Ex-drinker (finding) comp leted Ex- drinker (finding) [facility] Cigarette pack-years 03/16/2020 12:00:00 AM EDT UNK completed [facility] Cigarettes smoked current (pack per day) - Reported 03/16/20 12:00:00 AM EDT UNK completed [facility] Smoking 03/16/2020 12:00:00 AM EDT Former smoker completed Former smoker [facility] Alcohol intake 03/02/2020 12:00:00 AM EDT Ex-drinker (finding) comp leted Ex- drinker (finding) [facility] Cigarette pack-years 03/02/2020 12:00:00 AM EDT UNK [facility] Cigarettes smoked current (pack per day) - Reported 03/02/20 12:00:00 AM EDT UNK completed [facility] Smoking 03/02/2020 12:00:00 AM EDT Former smoker completed Former smoker [facility] Alcohol intake 12/23/2019 12:00:00 AM EDT Ex-drinker (finding) comp leted Ex- drinker (finding) [facility] Smoking 12/23/2019 12:00:00 AM EDT Former smoker completed Former smoker [facility] Alcohol intake 12/22/2019 12:00:00 AM EDT Ex-drinker (finding) comp leted Ex- drinker (finding) [facility] Smoking 12/22/2019 12:00:00 AM EDT Former smoker completed Former smoker [facility] Vital Signs ID Date Data Source UNK Name Value Range Interpretation Code Description Data Source(s) Diastolic blood pressure 75 mm[Hg] 75 mm[Hg] eCW1 ([facility]) Systolic blood pressure 170 mm[Hg] 170 mm[Hg] e CW1 ([facility]) Body temperature 97.1 [degF] 97.1 [degF] eCW1 ( [facility]) Respiratory rate 18 /min 18 /min eCW1 ([facility]) Heart rate 61 /min 61 /min eCW1 ([facility]) Body mass index (BMI) [Ratio] 29.63 kg/m2 29.63 kg/m2 [facility] ([facility]) Body height 62 [in_i] 62 [in_i] eCW1 ([facility]) Body weight 162 [lb_av] 162 [lb_av] eCW1 ([facility]) Diastolic blood pressure 80 mm[Hg] 80 mm[Hg] eCW1 ([facility]) Systolic blood pressure 158 mm[Hg] 158 mm[Hg] e CW1 ([facility]) Body temperature 97.8 [degF] 97.8 [degF] eCW1 ( [facility]) Respiratory rate 18 /min 18 /min eCW1 ([facility]) Heart rate 60 /min 60 /min eCW1 ([facility]) Body mass index (BMI) [Ratio] 29.15 kg/m2 29.15 kg/m2 W1 ([facility]) Body height 62 [in_i] 62 [in_i] eCW1 ([facility]) Body weight 72.3 kg 72.3 kg eCW1 ([facility]) Body weight 159.4 [lb_av] 159.4 [lb_av] eCW1 ([facility]) Diastolic blood pressure 83 mm[Hg] 83 mm[Hg] eCW1 ([facility]) Systolic blood pressure 181 mm[Hg] 181 mm[Hg] e CW1 ([facility]) Body temperature 98.5 [degF] 98.5 [degF] eCW1 ( [facility]) Respiratory rate 18 /min 18 /min eCW1 ([facility]) Heart rate 65 /min 65 /min eCW1 ([facility]) Body mass index (BMI) [Ratio] 28.68 kg/m2 28.68 kg/m2 W1 ([facility]) Body height 62 [in_i] 62 [in_i] eCW1 ([facility]) Body weight 156.8 [lb_av] 156.8 [lb_av] eCW1 ([facility]) Diastolic blood pressure 80 mm[Hg] 80 mm[Hg] MEDENT ([facility], ) Systolic blood pressure 130 mm[Hg] 130 mm[Hg] M EDENT ([facility], ) Respiratory rate 16 /min 16 /min MEDENT ( [facility], ) Heart rate 76 /min 76 /min MEDENT ([facility], ) Body temperature 36.5 mel[place] Normal (applies to non-numeric results) 36.5 melida [facility] Respiratory rate 18 min Normal (applies to non-numeric results) 18 min [facility] Heart rate 83 min Normal (applies to non-numeric resul ts) 83 min [facility] Diastolic blood pressure 77 mm[Hg] Normal (applies to non-numeric results) 77 mm[Hg] [facility] Systolic blood pressure 117 mm[Hg] Normal (applies t o non-numeric results) 117 mm[Hg] [facility] Deprecated Oxygen saturation in Capillary blood by Oximetry 98 % Normal (applies to non-numeric results) 98 % [facility] Body weight Measured 69 kg Normal (applies to non-num silvio results) [address] [facility] Body height 151.1808 cm Normal (applies to non-numeric res ults) 151.[address] [facility] Body mass index (BMI) [Ratio] 25.8 kg/m2 No rmal (applies to non-numeric results) 25.8 kg/m2 [facility] Diastolic blood pressure 82 mm[Hg] 82 mm[Hg] eCW1 ([facility]) Systolic blood pressure 138 mm[Hg] 138 mm[Hg] e CW1 ([facility]) Body temperature 99.1 [degF] 99.1 [degF] eCW1 ( [facility]) Respiratory rate 18 /min 18 /min eCW1 ([facility]) Heart rate 68 /min 68 /min eCW1 ([facility]) Body mass index (BMI) [Ratio] 27.29 kg/m2 27.29 kg/m2 eCW1 ([facility]) Body height 62 [in_us] 62 [in_us] eCW1 ([facility]) Body weight Measured 149.2 [lb_av] 149.2 [lb_av ] eCW1 ([facility]) ID Date Data Source [id number] 09/22/2020 02:48:[address] [facility] Name Value Range Interpretation Code Description Data Source(s) WEIGHT RECORDED 151.40 pounds 151.40 pounds [facility] Height [address] [facility] ID Date Data Source [id number] 06/27/2020 10:50:[address] [facility] Name Value Range Interpretation Code Description Data Source(s) WEIGHT RECORDED 158.00 pounds 158.00 pounds [facility] Height [address] [facility] ID Date Data Source [id number] 05/10/2020 08:25:[address] [facility] Name Value Range Interpretation Code Description Data Source(s) WEIGHT RECORDED 156.00 pounds 156.00 pounds [facility] Height [address] [facility] WEIGHT RECORDED 158.00 pounds 158.00 pounds [facility] Height [address] [facility] ID Date Data Source [id number] 03/18/2020 07:29:50 AM [facility] Name Value Range Interpretation Code Description Data Source(s) WEIGHT RECORDED 165 lb 165 lb [facility] Body height Measured 62 in 62 in [facility] ID Date Data Source [id number] 12/22/2019 02:51:33 PM [facility] Name Value Range Interpretation Code Description Data Source(s) WEIGHT RECORDED 156.09 lb 156.09 lb [facility] Body height Measured 60.83 in 60.83 in [facility] Patient Treatment Plan of Care Planned Activity Planned Date Details Description Data Source (s) Acetaminophen 300 MG / butalbital 50 MG / Caffeine 40 MG Oral Capsule [Fioricet] 09/22/2020 12:00:00 AM EST eCW1 ([facility]) Acetaminophen 300 MG / butalbital 50 MG / Caffeine 40 MG Oral Capsule [Fioricet] 09/22/2020 12:00:00 AM EST eCW1 ([facility]) Acetaminophen 300 MG / butalbital 50 MG / Caffeine 40 MG Oral Capsule [Fioricet] 09/22/2020 12:00:00 AM EST eCW1 ([facility]) Acetaminophen 300 MG / butalbital 50 MG / Caffeine 40 MG Oral Capsule [Fioricet] 09/22/2020 12:00:00 AM EST eCW1 ([facility]) Acetaminophen 300 MG / butalbital 50 MG / Caffeine 40 MG Oral Capsule [Fioricet] 09/22/2020 12:00:00 AM EST eCW1 ([facility]) Methotrexate 2.5 MG Oral Tablet 03/21/2020 09:00:[address] [facility] fentaNYL (SUBLIMAZE) (PF) injection 12.5 mcg 03/16/2020 02:00:[address] [facility] Acetaminophen 325 MG Oral Tablet 03/16/2020 02:00:[address] [facility] ondansetron (ZOFRAN) injection 4 mg 03/16/2020 02:00:[address] [facility] Methotrexate 2.5 MG Oral Tablet 12/21/2019 12:00:[address] [facility] Trazodone Hydrochloride 50 MG Oral Tablet 12/14/2019 12:00:00 AM ED [facility] Prednisone 5 MG Oral Tablet 11/28/2019 12:00:00 AM [facility] Methotrexate 2.5 MG Oral Tablet 10/28/2019 12:00:00 AM EST eCW1 ([facility]) Folic Acid 1 MG Oral Tablet 10/28/2019 12:00:00 AM EST eCW1 ([facility]) Methotrexate 2.5 MG Oral Tablet 10/28/2019 12:00:00 AM EST eCW1 ([facility]) Prednisone 5 MG Oral Tablet 10/28/2019 12:00:00 AM EST eCW1 ([facility]) Acetaminophen 325 MG / Hydrocodone Bitartrate 5 MG Ora l Tablet 10/19/2019 12:00:00 AM [facility] potassium chloride SA (K-DUR,KLOR-CON) 10 MEQ tablet 019 12:00:[address] [facility] Famotidine 20 MG Oral Tablet 06/17/2019 12:00:[address] [facility] Ondansetron 4 MG Oral Tablet 06/17/2019 12:00:[address] [facility] Tab-A-Eusebio/Beta Carotene Oral Tablet [facility] Acetaminophen 500 MG Oral Tablet [facility] Multiple Vitamins-Minerals (MULTIVITAL EMMONAK PO) [facility] Acetaminophen 500 MG / Caffeine 65 MG Oral Tablet [facility] ONDANSETRON HCL PO [facility] atorvastatin 10 MG Oral Tablet [facility]
[2020-11-24] MEDS ORDERED: propofoL 200 MG/20 ML VIAL As Ordered ONE (14:16)
[2020-11-24] MEDS ORDERED: LIDOCAINE 2% 100MG/5ML SDV (FOR ANES.) As Ordered ONE (14:16)
[2020-11-24] MEDS ORDERED: fentaNYL 100 MCG/2 ML INJECTION (J3010) As Ordered ONE (14:17)
--- NOTE | 2020-11-24 14:53 | ROOR ---
Patient Name: Naye Juarez Procedure Date: 11/24/2020 2:20 PM Date of : 1950 Age: 70 Room: [facility] Gender: Female Note Status: Finalized Procedure: Upper GI endoscopy Indications: Follow-up of gastric ulcer Providers: Wali Matthew MD Referring MD: Maria Luisa Elizondo NP Requesting Provider: Medicines: Monitored Anesthesia Care Complications: No immediate complications. Procedure: Pre-Anesthesia Assessment: - Prior to the procedure, a History and Physical was performed, and patient medications and allergies were reviewed. The patient is competent. The risks and benefits of the procedure and the sedation options and risks were discussed with the patient. All questions were answered and informed consent was obtained. Patient identification and proposed procedure were verified by the physician, the nurse and the anesthesiologist in the procedure room. Mental Status Examination: alert and oriented. Airway Examination: normal oropharyngeal airway and neck mobility. Respiratory Examination: clear to auscultation. CV Examination: normal. Prophylactic Antibiotics: The patient does not require prophylactic antibiotics. Prior Anticoagulants: The patient has taken no previous anticoagulant or antiplatelet agents. ASA Grade Assessment: III - A patient with severe systemic disease. After reviewing the risks and benefits, the patient was deemed in satisfactory condition to undergo the procedure. The anesthesia plan was to use monitored anesthesia care (MAC). Immediately prior to administration of medications, the patient was re-assessed for adequacy to receive sedatives. The heart rate, respiratory rate, oxygen saturations, blood pressure, adequacy of pulmonary ventilation, and response to care were monitored throughout the procedure. The physical status of the patient was re-assessed after the procedure. The Endoscope was introduced through the mouth, and advanced to the second part of duodenum. The upper GI endoscopy was accomplished without difficulty. The patient tolerated the procedure well. Findings: The examined esophagus was normal. The Z-line was regular and was found 40 cm from the incisors. One non-bleeding linear and superficial gastric ulcer with a clean ulcer base (Abner Class III) was found at the pylorus. The lesion was 10 mm in largest dimension. Biopsies were taken with a cold forceps for histology. Verification of patient identification for the specimen was done by the physician and nurse using the patient's name, date and medical record number. Estimated blood loss was minimal. Diffuse severe inflammation characterized by adherent blood, congestion (edema), erosions, friability and granularity was found in the gastric body and in the gastric antrum. A severe post-ulcer deformity was found in the duodenal bulb. The second portion of the duodenum was normal. Impression: - Normal esophagus. - Z-line regular, 40 cm from the incisors. - Non-bleeding gastric ulcer with a clean ulcer base (Abner Class III). Biopsied. - Gastritis. - Duodenal deformity. - Normal second portion of the duodenum. Recommendation: - Patient has a contact number available for emergencies. The signs and symptoms of potential delayed complications were discussed with the patient. Return to normal activities tomorrow. Written discharge instructions were provided to the patient. - High fiber diet. - Continue present medications. - No ibuprofen, naproxen, or other non-steroidal anti-inflammatory drugs. - Use Pepcid (famotidine) 20 mg PO Twice daily ( take porcelain slusher on empty stomach and at bedtime) for 3 months. - Use sucralfate tablets 1 gram PO QID for 4 weeks. - Repeat upper endoscopy in 3 months depending on the symptoms and clinical response. - Return to GI clinic in [facility] (address [address], [address], [place] [address]) in 4 -- 6 weeks. Please call GI clinic @ [phone] for apppointment date and time. - Return to primary care physician. Procedure Code(s): --- Professional --- 55652, Esophagogastroduodenoscopy, flexible, transoral; with biopsy, single or multiple Diagnosis Code(s): --- Professional --- K25.9, Gastric ulcer, unspecified as acute or chronic, without hemorrhage or perforation K29.70, Gastritis, unspecified, without bleeding K31.89, Other diseases of stomach and duodenum CPT copyright 2019 [employer]. All rights reserved. The codes documented in this report are preliminary and upon graduate school dean review may be revised to meet current compliance requirements. Wali Matthew MD Wali Matthew MD 11/24/2020 2:52:33 PM Electronically signed by Wali Matthew MD Number of Addenda: 0 Note Initiated On: 11/24/2020 2:20 PM Estimated Blood Loss: Estimated blood loss was minimal.
[2020-11-24 15:10] VITALS: BP 178/78
== END 2020-11-24 18:45 | disposition home or self-care (01) ==
LOC: M OPP 13:24
PROVIDERS: ATTEND Internal Medicine Gastroenterology
DX: K25.9 Gastric ulcer, unspecified as acute or chronic, without hemorrhage or perforation (principal); D13.1 Benign neoplasm of stomach; K29.70 Gastritis, unspecified, without bleeding; K31.89 Other diseases of stomach and duodenum; I25.10 Atherosclerotic heart disease of native coronary artery without angina pectoris; I10 Essential (primary) hypertension; E78.5 Hyperlipidemia, unspecified; R12 Heartburn; M06.9 Rheumatoid arthritis, unspecified; L40.9 Psoriasis, unspecified; F43.10 Post-traumatic stress disorder, unspecified; J44.9 Chronic obstructive pulmonary disease, unspecified; Z86.711 Personal history of pulmonary embolism; Z86.718 Personal history of other venous thrombosis and embolism; Z86.73 Personal history of transient ischemic attack (TIA), and cerebral infarction without residual deficits; Z92.21 Personal history of antineoplastic chemotherapy; Z87.891 Personal history of nicotine dependence; Z95.1 Presence of aortocoronary bypass graft; Z88.5 Allergy status to narcotic agent; Z88.6 Allergy status to analgesic agent; Z88.8 Allergy status to other drugs, medicaments and biological substances; Z79.82 Long term (current) use of aspirin; Z79.899 Other long term (current) drug therapy
CPT/HCPCS: 43239; 88305; J3010

== ENCOUNTER → 2020-12-23 | Outpatient (CLI) | payer MEDICARE ==
[~2020-12-23] MED LIST changes: -NS 1,000 ML IV ONE
--- NOTE | 2020-12-27 07:43 | ECWPNPC ---
PATIENT NAME: BRITNEY SOFIA : 1950 GENDER: FEMALE VISIT DATE: 12/23/2020 DISCHARGE DATE: 12/23/20 1214 VISIT LOCKED DATE TIME: PHYSICIAN: SD VEGA RESOURCE: SD VEGA REASON FOR APPOINTMENT 1. HEADACHE, CERVICALGIA HISTORY OF PRESENT ILLNESS GENERAL: - 70-YEAR-OLD FEMALE IN FOR CHRONIC PAIN FOLLOW-UP. SHE RATES HER PAIN CURRENTLY AT A 4 OUT OF 10 AND DESCRIBES IT ACHING, INTERMITTENT, SHARP, AND THROBBING. SHE FEELS THE MEDICATIONS ARE HELPFUL AND DENIES MED SIDE EFFECTS AT THIS TIME. FALL RISK SCREENING: SCREENING : NO FALLS REPORTED IN THE LAST YEAR. PAIN SCREENING: PATIENT HAS A COMPLAINT OF ACUTE OR CHRONIC PAIN :YES LOCATION OF PAIN:NECK BACK OF NECK AND TOP OF HEAD INTENSITY OF PAIN (SCALE OF 1 TO 10):4 WHAT DOES YOUR PAIN FEEL LIKE:ACHING, INTERMITTENT, SHARP, THROBBING DURATION:PERIODIC PAIN IS INCREASED BY:OTHERS FOCUSING OR READING PAIN IS DECREASED BY:USE OF PAIN MEDICATIONS NURSING NOTE: -. PAIN CENTER INTAKE QUESTIONS: DO YOU HAVE A HISTORY OF MRSA? :NO DO YOU TAKE A BLOOD THINNERS? :NO DO YOU HAVE ANY BLEEDING DISORDERS? :NO ANY NEW NUMBNESS OR WEAKNESS IN YOUR LEGS OR ARMS? :NO ANY PACEMAKER,DEFIBRILLATOR, OR DORSAL COLUMN STIMULATOR? :NO DO YOU HAVE ANY RASHES OR OPEN SORES? :NO ARE YOU ALLERGIC TO IV DYE? :NO ARE YOU DIABETIC? :NO ANY NEW PROBLEMS WITH YOUR MEDICATIONS? :NO HAVE YOU RECEIVED A VACCINE IN THE PAST 30 DAYS? :YES IF SO WHAT VACCINE AND WHEN? COVID 1ST VACCINE 12/06/2020 2ND SCHEDULE 01/03/2021 DO YOU PLAN TO RECEIVE A VACCINE IN THE NEXT 21 DAYS? :NO DO YOU NEED ANY PRESCRIPTION? :NO DO YOU TAKE ANY IMMUNOSUPPRESSIVE MEDICATIONS? :YES PREDNISONE, METHOTREXATE ON SATURDAY DO YOU HAVE ANY KIDNEY OR LIVER DISEASE? :NO IS THERE A CHANCE YOU COULD BE ? :NO ARE YOU BREAST FEEDING? :NO CURRENT MEDICATIONS TAKING ATORVASTATIN CALCIUM 20 MG TABLET 1 TABLET ORAL ONCE A DAY TAKING METOPROLOL TARTRATE 100 MG TABLET 1 TABLET WITH FOOD ORAL DAILY TAKING POTASSIUM CHLORIDE LISA ER 20 MEQ TABLET EXTENDED RELEASE 2 TABS ORALLY ONCE DAILY TAKING PREDNISONE 5 MG TABLET 1-2 TABLET ORALLY BID PRN TAKING ACIDOPHILUS - CAPSULE DIRECTED ORALLY TAKING FOLIC ACID 1 MG TABLET 2 TABLET ORALLY ONCE A DAY TAKING METHOTREXATE SODIUM 2.5 MG TABLET 17.5 MG ORALLY ONCE WEEKLY TAKING FIORICET 50-300-40 MG CAPSULE 1 CAPSULE NEEDED ORALLY EVERY 6 HRS PRN PAIN NOT-TAKING EXCEDRIN TENSION HEADACHE 500-65 MG TABLET 2 TABLETS NEEDED ORALLY THREE TIMES A DAY NOT-TAKING TRAZODONE HCL 50 MG TABLET 1 TABLET AT BEDTIME NEEDED ORALLY ONCE A DAY NOT-TAKING LOPERAMIDE HCL 2 MG CAPSULE 1 CAPSULE NEEDED ORALLY DIRECTED NOT-TAKING ANORO ELLIPTA UMECLIDINIUM 62.5 MCG AND VILANTEROL 25 MCG INHALATION POWDER 1 INHALATION ORAL ONCE DAILY NOT-TAKING ASPIRIN 81 81 MG TABLET DELAYED RELEASE 1 TABLET ORALLY ONCE A DAY NOT-TAKING HYDROCODONE-ACETAMINOPHEN 5-325 MG TABLET (SCHEDULE II DRUG) ORAL EVERY 6 HRS, NOTES: TOOK LAST DOSE 10/28/2019 NOT-TAKING DICLOFENAC SODIUM 1 % GEL 1 APPLICATION TRANSDERMAL TWICE A DAY MEDICATION LIST REVIEWED AND RECONCILED WITH THE PATIENT PAST MEDICAL HISTORY HYPERTENSION HIGH CHOLESTEROL COPD STROKE DIVERTICULITIS DVT IN LUNG AND RIGHT LEG DUODINAL BLEEDING ULCERS RHEUMATOID ARTHRITIS ABDOMINAL PAIN BRONCHITIS- CHRONIC CAD- S/P CABG 12 YEARS AGO CERVICAL STENOSIS OF THE SPINE CVA DIARRHEA GERD HEART DISEASE HIDRADENTITIS SUPPURATIVA HYPERLIPIDEMIA NAUSEA & VOMITING UMBILICAL HERNIA RA PSORIASIS DUODENAL ULCER ALLERGIES FENOFIBRATE: RASH - ALLERGY TRAMADOL HCL: CONFUSION - ALLERGY AMBIEN: CONFUSION - ALLERGY LUNESTA: CONFUSION - ALLERGY LACTOSE: DIARRHEA - SIDE EFFECTS SOCIAL HISTORY GENERAL: TOBACCO USE ARE YOU A:FORMER SMOKER HOW LONG HAS IT BEEN SINCE YOU LAST SMOKED?1-5 YEARS 02/2014 LATEX QUESTIONNAIRE LATEX ALLERGY : HAVE YOU EVER DEVELOPED ANY TYPE OF REACTION AFTER HANDLING LATEX PRODUCTS SUCH RUBBER GLOVES, CONDOMS, DIAPHRAGMS, BALLOONS, SOCKS, OR UNDERWEAR?NO LATEX ALLERGY : HAVE YOU EVER DEVELOPED ANY TYPE OF REACTION DURING OR AFTER DENTAL APPOINTMENT, VAGINAL/RECTAL EXAMINATION, SURGICAL PROCEDURE, OR ANY OTHER EXPOSURE?NO LATEX RISK : HAVE YOU EVER HAD ANY DIFFICULTY BREATHING OR HIVES AFTER EATING OR HANDLING ANY FRUITS, OR VEGETABLES; SUCH KIWI, BANANAS, STONE FRUITS, OR CHESTNUTSNO LATEX RISK : DO YOU HAVE A PREVIOUS PERSONAL HISTORY OF MORE THAN NINE SURGERIES, SPINA BIFIDA, OR REPEATED CATHERIZATIONS? NO LATEX RISK : ARE YOU FREQUENTLY EXPOSED TO LATEX PRODUCTS IN YOUR OCCUPATION?NO DATE ASKED : 12/23/2020 ALCOHOL USE: NO. ALCOHOL SCREENING DID YOU HAVE A DRINK CONTAINING ALCOHOL IN THE PAST YEAR?YES HOW OFTEN DID YOU HAVE SIX OR MORE DRINKS ON ONE OCCASION IN THE PAST YEAR?NEVER (0 POINTS) HOW MANY DRINKS DID YOU HAVE ON A TYPICAL DAY WHEN YOU WERE DRINKING IN THE PAST YEAR?1 OR 2 (0 POINTS) HOW OFTEN DID YOU HAVE A DRINK CONTAINING ALCOHOL IN THE PAST YEAR?MONTHLY OR LESS (1 POINT) POINTS1 INTERPRETATIONNEGATIVE RECREATIONAL DRUG USE DRUG USE?NO CAFFEINE CAFFEINE USE?YES HOW OFTEN AND HOW MUCH? LESS THAN 1 DAILY LANGUAGE LANGUAGES SPOKEN:HEBREW LEARNING BARRIERS / SPECIAL NEEDS CHANGE FROM LAST VISIT?NO BARRIERS TO LEARNING?NO HEARING IMPAIRED?NO VISION IMPAIRED?YES COGNITIVELY IMPAIRED?NO :CORRECTIVE LENSES READINESS TO LEARN?YES LEARNING PREFERENCES?NO LEARNING CAPABILITIES PRESENT?YES EMOTIONAL BARRIERS?NO SPECIAL DEVICES?NO WINDOW AND SIDING CRAFTSMAN NEEDED?NO DOMESTIC VIOLENCE DO YOU FEEL SAFE IN YOUR ENVIRONMENT?YES - HAS THE PATIENT BEEN EDUCATED REGARDING HIS/HER PLAN OF CARE?YES HAS THE PATIENT BEEN EDUCATED REGARDING PAIN, THE RISK FOR PAIN, THE IMPORTANCE OF EFFECTIVE PAIN MANAGEMENT, AND THE PAIN ASSESSMENT PROCESS?YES ADVANCE DIRECTIVE ADVANCE DIRECTIVE DISCUSSED WITH PATIENT:YES ADELA VEGAS [phone] #1 REVIEW OF SYSTEMS CONSTITUTIONAL: ANY RECENT FEVER NO . CHILLS NO . WEIGHT CHANGE OF UNKNOWN REASONS NO . GASTROENTEROLOGY: NEW UNEXPLAINABLE CHANGES IN BOWEL CONTROL NO . CONSTIPATION NO . GENITOURINARY: ANY NEW CHANGE IN BLADDER CONTROL? NO . NEUROLOGY: NEW ONSET DIZZINESS OR NEUROLOGICAL CHANGES NOT MENTIONED NO . NEW NUMBNESS OR PAIN PATTERNS NOT MENTIONED AND PERTINENT TO TODAY'S VISIT NO . CARDIOLOGY: NEW CHEST PRESSURE NO . PATIENT DENIES NO . RESPIRATORY: UNEXPLAINABLE COUGH NO . NEW SHORTNESS OF BREATH NO . VITAL SIGNS WT 165.8 LBS, HT 62 IN, BMI 30.32 INDEX, BP 165/81 MM HG, HR 60 /MIN, RR 18 /MIN, TEMP 97.2 F, OXYGEN SAT % 92%, SAFE IN ENV? (Y/N) YES, NA INITIALS IN 11:38, REVIEWED BY: Tre NARANJO RN. EXAMINATION GENERAL EXAMINATION: GENERALNO ACUTE DISTRESS, WELL NOURISHED AND HYDRATED. PSYCHAPPROPRIATE MOOD AND AFFECT . LUNGS:CLEAR TO AUSCULTATION BILATERALLY, NO WHEEZES, RHONCHI, RALES. HEART:NO MURMURS, REGULAR RATE AND RHYTHM. ASSESSMENTS CERVICALGIA - M54.2 (PRIMARY) TREATMENT CERVICALGIA REFILL FIORICET CAPSULE, 50-300-40 MG, 1 CAPSULE NEEDED, ORALLY, EVERY 6 HRS PRN PAIN, 30 DAYS, 120 NOTES: 70-YEAR-OLD FEMALE IN FOR CHRONIC PAIN FOLLOW-UP. GIVEN PRESENTING SYMPTOMS RECOMMENDED CONTINUATION OF CURRENT MEDICATION REGIMEN WITH FOLLOW-UP IN 3 MONTHS. PATIENT HAS EXPRESSED UNDERSTANDING OF AND WAS IN AGREEMENT WITH TREATMENT PLAN. GIVEN TIME TO ASK QUESTIONS AND EXPRESS CONCERNS. PROCEDURE CODES FA211 ESTABILISHED PATIENT [facility] CHARGE DISPOSITION & COMMUNICATION FOLLOW UP 3 MONTHS (REASON: NECK PAIN ) ELECTRONICALLY SIGNED BY MIRYAM WOODS ON 12/26/2020 AT 11:07 AM EDT DISCLAIMER : THIS IS A VISIT SUMMARY EXTRACTED FROM THE [employer] CHART. IT IS NOT A COPY OF THE [employer] PROGRESS NOTE. MTDD
== END ==
LOC: M PAIN 11:30
PROVIDERS: ATTEND Family Medicine
DX: M54.2 Cervicalgia (principal); I10 Essential (primary) hypertension; E78.00 Pure hypercholesterolemia, unspecified; J44.9 Chronic obstructive pulmonary disease, unspecified; M06.9 Rheumatoid arthritis, unspecified; K21.9 Gastro-esophageal reflux disease without esophagitis; E78.5 Hyperlipidemia, unspecified; E73.9 Lactose intolerance, unspecified; L40.9 Psoriasis, unspecified; Z87.891 Personal history of nicotine dependence; Z79.899 Other long term (current) drug therapy; Z86.711 Personal history of pulmonary embolism; Z88.5 Allergy status to narcotic agent; Z88.8 Allergy status to other drugs, medicaments and biological substances

== ENCOUNTER → 2021-03-15 | Outpatient (CLI) | payer MEDICARE ==
--- NOTE | 2021-03-17 02:23 | ECWPNPC ---
PATIENT NAME: BRITNEY SOFIA : 1950 GENDER: FEMALE VISIT DATE: 03/15/2021 DISCHARGE DATE: 03/15/21 1134 VISIT LOCKED DATE TIME: PHYSICIAN: SD VEGA RESOURCE: SD VGEA REASON FOR APPOINTMENT 1. NECK PAIN HISTORY OF PRESENT ILLNESS GENERAL: HPI 70-YEAR-OLD FEMALE IN FOR CHRONIC PAIN FOLLOW-UP. SHE RATES HER PAIN CURRENTLY AT A 3 OUT OF 10 AND DESCRIBES IT ACHING, CONTINUOUS, AND THROBBING. SHE FEELS HER MEDICATIONS ARE HELPFUL AND DENIES MED SIDE EFFECTS AT THIS TIME.. -. FALL RISK SCREENING: SCREENING TWO FALLS REPORTED IN THE LAST YEAR WITH INJURY. PATIENT DID NOT SEEK IMMEDIATE MEDICAL TREATMENT.. PAIN SCREENING: PATIENT HAS A COMPLAINT OF ACUTE OR CHRONIC PAIN :YES LOCATION OF PAIN:NECK INTENSITY OF PAIN (SCALE OF 1 TO 10):3 WHAT DOES YOUR PAIN FEEL LIKE:ACHING, CONTINOUS, THROBBING DURATION:CONTINOUS PAIN IS INCREASED BY:ACTIVITIES, OTHERS FOCUSING ON THINGS INCREASES THE PAIN PAIN IS DECREASED BY:USE OF PAIN MEDICATIONS, SITTING NURSING NOTE: -. PAIN CENTER INTAKE QUESTIONS: DO YOU HAVE A HISTORY OF MRSA? :NO DO YOU TAKE A BLOOD THINNERS? :NO DO YOU HAVE ANY BLEEDING DISORDERS? :NO ANY NEW NUMBNESS OR WEAKNESS IN YOUR LEGS OR ARMS? :NO ANY PACEMAKER,DEFIBRILLATOR, OR DORSAL COLUMN STIMULATOR? :NO DO YOU HAVE ANY RASHES OR OPEN SORES? :NO ARE YOU ALLERGIC TO IV DYE? :NO ARE YOU DIABETIC? :NO ANY NEW PROBLEMS WITH YOUR MEDICATIONS? :NO HAVE YOU RECEIVED A VACCINE IN THE PAST 30 DAYS? :NO SECOND COVID VACCINATION 01/03/2021 DO YOU PLAN TO RECEIVE A VACCINE IN THE NEXT 21 DAYS? :NO DO YOU NEED ANY PRESCRIPTION? :NO DO YOU TAKE ANY IMMUNOSUPPRESSIVE MEDICATIONS? :YES PREDNISONE, METHOTREXATE ON SATURDAY DO YOU HAVE ANY KIDNEY OR LIVER DISEASE? :NO IS THERE A CHANCE YOU COULD BE ? :NO ARE YOU BREAST FEEDING? :NO CURRENT MEDICATIONS TAKING ATORVASTATIN CALCIUM 20 MG TABLET 1 TABLET ORAL ONCE A DAY TAKING METOPROLOL TARTRATE 100 MG TABLET 1 TABLET WITH FOOD ORAL DAILY TAKING POTASSIUM CHLORIDE LISA ER 20 MEQ TABLET EXTENDED RELEASE 2 TABS ORALLY ONCE DAILY TAKING ACIDOPHILUS - CAPSULE DIRECTED ORALLY TAKING FOLIC ACID 1 MG TABLET 2 TABLET ORALLY ONCE A DAY TAKING METHOTREXATE SODIUM 2.5 MG TABLET 7 TABLETS ORALLY ONCE WEEKLY TAKING FIORICET APAP 325-50-40 CAPSULE 1 CAPSULE NEEDED ORALLY EVERY 6 HOURS PRN MDD 4 TAKING FAMOTIDINE 20 MG TABLET 1 TAB ORAL BID TAKING TRAZODONE HCL 50 MG TABLET 1 TABLET AT BEDTIME NEEDED ORALLY ONCE A DAY TAKING BREZTRI AEROSPHERE 160-9-4.8 MCG/ACT AEROSOL 2 PUFFS INHALATION TWICE A DAY NOT-TAKING PREDNISONE 5 MG TABLET 1-2 TABLET ORALLY BID PRN, NOTES: LAST DOSE 02/2021 NOT-TAKING EXCEDRIN TENSION HEADACHE 500-65 MG TABLET 2 TABLETS NEEDED ORALLY THREE TIMES A DAY NOT-TAKING TRAZODONE HCL 50 MG TABLET 1 TABLET AT BEDTIME NEEDED ORALLY ONCE A DAY NOT-TAKING LOPERAMIDE HCL 2 MG CAPSULE 1 CAPSULE NEEDED ORALLY DIRECTED NOT-TAKING ANORO ELLIPTA UMECLIDINIUM 62.5 MCG AND VILANTEROL 25 MCG INHALATION POWDER 1 INHALATION ORAL ONCE DAILY NOT-TAKING ASPIRIN 81 81 MG TABLET DELAYED RELEASE 1 TABLET ORALLY ONCE A DAY NOT-TAKING HYDROCODONE-ACETAMINOPHEN 5-325 MG TABLET (SCHEDULE II DRUG) ORAL EVERY 6 HRS, NOTES: TOOK LAST DOSE 10/28/2019 NOT-TAKING DICLOFENAC SODIUM 1 % GEL 1 APPLICATION TRANSDERMAL TWICE A DAY MEDICATION LIST REVIEWED AND RECONCILED WITH THE PATIENT PAST MEDICAL HISTORY HYPERTENSION HIGH CHOLESTEROL COPD STROKE DIVERTICULITIS DVT IN LUNG AND RIGHT LEG DUODINAL BLEEDING ULCERS RHEUMATOID ARTHRITIS ABDOMINAL PAIN BRONCHITIS- CHRONIC CAD- S/P CABG 12 YEARS AGO CERVICAL STENOSIS OF THE SPINE CVA DIARRHEA GERD HEART DISEASE HIDRADENTITIS SUPPURATIVA HYPERLIPIDEMIA NAUSEA & VOMITING UMBILICAL HERNIA RA PSORIASIS DUODENAL ULCER ALLERGIES FENOFIBRATE: RASH - ALLERGY TRAMADOL HCL: CONFUSION - ALLERGY AMBIEN: CONFUSION - ALLERGY LUNESTA: CONFUSION - ALLERGY LACTOSE: DIARRHEA - SIDE EFFECTS SOCIAL HISTORY GENERAL: TOBACCO USE ARE YOU A:FORMER SMOKER HOW LONG HAS IT BEEN SINCE YOU LAST SMOKED?1-5 YEARS 02/2014 LATEX QUESTIONNAIRE LATEX ALLERGY : HAVE YOU EVER DEVELOPED ANY TYPE OF REACTION AFTER HANDLING LATEX PRODUCTS SUCH RUBBER GLOVES, CONDOMS, DIAPHRAGMS, BALLOONS, SOCKS, OR UNDERWEAR?NO LATEX ALLERGY : HAVE YOU EVER DEVELOPED ANY TYPE OF REACTION DURING OR AFTER DENTAL APPOINTMENT, VAGINAL/RECTAL EXAMINATION, SURGICAL PROCEDURE, OR ANY OTHER EXPOSURE?NO LATEX RISK : HAVE YOU EVER HAD ANY DIFFICULTY BREATHING OR HIVES AFTER EATING OR HANDLING ANY FRUITS, OR VEGETABLES; SUCH KIWI, BANANAS, STONE FRUITS, OR CHESTNUTSNO LATEX RISK : DO YOU HAVE A PREVIOUS PERSONAL HISTORY OF MORE THAN NINE SURGERIES, SPINA BIFIDA, OR REPEATED CATHERIZATIONS? NO LATEX RISK : ARE YOU FREQUENTLY EXPOSED TO LATEX PRODUCTS IN YOUR OCCUPATION?NO DATE ASKED : 03/15/2021 ALCOHOL USE: NO. ALCOHOL SCREENING DID YOU HAVE A DRINK CONTAINING ALCOHOL IN THE PAST YEAR?NO POINTS0 INTERPRETATIONNEGATIVE RECREATIONAL DRUG USE DRUG USE?NO CAFFEINE CAFFEINE USE?YES HOW OFTEN AND HOW MUCH? LESS THAN 1 DAILY LANGUAGE LANGUAGES SPOKEN:[place] LEARNING BARRIERS / SPECIAL NEEDS CHANGE FROM LAST VISIT?NO BARRIERS TO LEARNING?NO HEARING IMPAIRED?NO VISION IMPAIRED?YES :CORRECTIVE LENSES COGNITIVELY IMPAIRED?NO READINESS TO LEARN?YES LEARNING PREFERENCES?NO LEARNING CAPABILITIES PRESENT?YES EMOTIONAL BARRIERS?NO SPECIAL DEVICES?NO TWISTER FRAME TENDER NEEDED?NO DOMESTIC VIOLENCE DO YOU FEEL SAFE IN YOUR ENVIRONMENT?YES - HAS THE PATIENT BEEN EDUCATED REGARDING HIS/HER PLAN OF CARE?YES HAS THE PATIENT BEEN EDUCATED REGARDING PAIN, THE RISK FOR PAIN, THE IMPORTANCE OF EFFECTIVE PAIN MANAGEMENT, AND THE PAIN ASSESSMENT PROCESS?YES ADVANCE DIRECTIVE ADVANCE DIRECTIVE DISCUSSED WITH PATIENT:YES ADELA SHASAT [phone] #1 REVIEW OF SYSTEMS CONSTITUTIONAL: ANY RECENT FEVER NO . CHILLS NO . WEIGHT CHANGE OF UNKNOWN REASONS NO . GASTROENTEROLOGY: NEW UNEXPLAINABLE CHANGES IN BOWEL CONTROL NO . CONSTIPATION NO . GENITOURINARY: ANY NEW CHANGE IN BLADDER CONTROL? NO . NEUROLOGY: NEW ONSET DIZZINESS OR NEUROLOGICAL CHANGES NOT MENTIONED NO . NEW NUMBNESS OR PAIN PATTERNS NOT MENTIONED AND PERTINENT TO TODAY'S VISIT NO . CARDIOLOGY: NEW CHEST PRESSURE NO . PATIENT DENIES NO . RESPIRATORY: UNEXPLAINABLE COUGH NO . NEW SHORTNESS OF BREATH NO . VITAL SIGNS WT 160.4 LBS, HT 62 IN, BMI 29.33 INDEX, BP 184/80 MM HG, REPEAT BP 142/82 MANUAL, HR 65 /MIN, RR 18 /MIN, TEMP 97.6 F, OXYGEN SAT % 99%, SAFE IN ENV? (Y/N) YES, NA INITIALS NV 11:14, REVIEWED BY: SANJEEV BP RETAKEN. 142/82. BUTCH HERNANDEZ MA. EXAMINATION GENERAL EXAMINATION: GENERALNO ACUTE DISTRESS, WELL NOURISHED AND HYDRATED. PSYCHAPPROPRIATE MOOD AND AFFECT . LUNGS:CLEAR TO AUSCULTATION BILATERALLY, NO WHEEZES, RHONCHI, RALES. HEART:NO MURMURS, REGULAR RATE AND RHYTHM. ASSESSMENTS CERVICALGIA - M54.2 (PRIMARY) TREATMENT CERVICALGIA REFILL FIORICET APAP CAPSULE, 325-50-40, 1 CAPSULE NEEDED, ORALLY, EVERY 6 HOURS PRN MDD 4, 30 DAYS, 120 START [id number] TABLET, 50-325-40 MG, 1 TABLET NEEDED, ORALLY, EVERY 4 HRS, 30 DAYS, 180, REFILLS 2 NOTES: 70-YEAR-OLD FEMALE IN FOR CHRONIC PAIN FOLLOW-UP. GIVEN PRESENTING SYMPTOMS RECOMMENDED CONTINUATION OF CURRENT MEDICATION REGIMEN WITH FOLLOW-UP IN 3 MONTHS. PATIENT HAS EXPRESSED UNDERSTANDING OF AND WAS IN AGREEMENT WITH TREATMENT PLAN. GIVEN TIME TO ASK QUESTIONS AND EXPRESS CONCERNS. PROCEDURE CODES FA211 ESTABILISHED PATIENT [facility] CHARGE DISPOSITION & COMMUNICATION FOLLOW UP 3 MONTHS (REASON: CERVICALGIA ) ELECTRONICALLY SIGNED BY MIRYAM WOODS ON 03/16/2021 AT 08:13 AM EDT DISCLAIMER : THIS IS A VISIT SUMMARY EXTRACTED FROM THE [employer] CHART. IT IS NOT A COPY OF THE [employer] PROGRESS NOTE. FAHAD
== END ==
LOC: M PAIN 11:00
PROVIDERS: ATTEND Family Medicine
DX: M54.2 Cervicalgia (principal); I10 Essential (primary) hypertension; E78.00 Pure hypercholesterolemia, unspecified; J44.9 Chronic obstructive pulmonary disease, unspecified; M06.9 Rheumatoid arthritis, unspecified; M47.812 Spondylosis without myelopathy or radiculopathy, cervical region; K21.9 Gastro-esophageal reflux disease without esophagitis; E78.5 Hyperlipidemia, unspecified; L40.9 Psoriasis, unspecified; I25.10 Atherosclerotic heart disease of native coronary artery without angina pectoris; Z95.1 Presence of aortocoronary bypass graft; L73.2 Hidradenitis suppurativa; Z86.73 Personal history of transient ischemic attack (TIA), and cerebral infarction without residual deficits; Z87.11 Personal history of peptic ulcer disease; Z87.891 Personal history of nicotine dependence; Z79.899 Other long term (current) drug therapy; Z88.5 Allergy status to narcotic agent; Z88.8 Allergy status to other drugs, medicaments and biological substances

== ENCOUNTER → 2021-06-16 | Outpatient (REF) | payer MEDICARE ==
[~2021-06-16] MED LIST changes: -DOXY100C PO; +DOXY100C3 PO
[2021-06-16 16:39] LABS: BASO # 0.1 10^3/uL (0.0-0.2); BASO % 0.7 % (0.0-1.0); EOS # 0.3 10^3/uL (0.0-0.5); EOS % 4.5 % (0.0-3.0); HEMATOCRIT 47.4 % (36.0-47.0); HEMOGLOBIN 15.4 g/dl (12.0-15.5); LYMPH # 1.3 10^3/uL (1.5-5.0); LYMPH % 18.5 % (24.0-44.0); MEAN CORPUSCULAR HEMOGLOBIN 34.5 pg (27.0-33.0); MEAN CORPUSCULAR HGB CONC 32.5 g/dl (32.0-36.5); MONO # 0.6 10^3/uL (0.0-0.8); MONO % 9.1 % (2.0-8.0); NEUTROPHILS # 4.6 10^3/uL (1.5-8.5); NEUTROPHILS % 66.8 % (36.0-66.0); PLATELET COUNT, AUTOMATED 221 10^3/uL (150-450); RED BLOOD COUNT 4.47 10^6/uL (4.00-5.40); WHITE BLOOD COUNT 6.8 10^3/uL (4.0-10.0)
[2021-06-16 17:07] LABS: ALBUMIN 4.2 GM/DL (3.2-5.2); ALT/SGPT 67 U/L (12-78); BILIRUBIN,TOTAL 0.5 MG/DL (0.2-1.0); BLOOD UREA NITROGEN 19 MG/DL (7-18); CALCIUM LEVEL 9.7 MG/DL (8.8-10.2); CARBON DIOXIDE LEVEL 29 MEQ/L (21-32); CHLORIDE LEVEL 107 MEQ/L (98-107); CREATININE FOR GFR 0.87 MG/DL (0.55-1.30); GLOMERULAR FILTRATION RATE > 60.0 (>39); GLUCOSE, FASTING 92 MG/DL (70-100); POTASSIUM SERUM 4.6 MEQ/L (3.5-5.1); SODIUM LEVEL 141 MEQ/L (136-145); TOTAL PROTEIN 7.3 GM/DL (6.4-8.2)
[2021-06-16 17:48] LABS: ERYTHROCYTE SEDIMENTATION RATE 13 mm/hr (0-30)
== END ==
LOC: M SFHCRHEU 11:12
PROVIDERS: ATTEND Internal Medicine Rheumatology
DX: M05.79 Rheumatoid arthritis with rheumatoid factor of multiple sites without organ or systems involvement (principal)
CPT/HCPCS: 80053; 85025; 85652; 86140; G0463

== ENCOUNTER → 2021-08-16 | Outpatient (CLI) | payer MEDICARE | LOC: M PAIN 11:00 | PROVIDERS: ATTEND Anesthesiology | DX: M79.18 Myalgia, other site (principal); M54.2 Cervicalgia; I10 Essential (primary) hypertension; J44.9 Chronic obstructive pulmonary disease, unspecified; M06.9 Rheumatoid arthritis, unspecified; I25.10 Atherosclerotic heart disease of native coronary artery without angina pectoris; M48.02 Spinal stenosis, cervical region; K21.9 Gastro-esophageal reflux disease without esophagitis; E78.5 Hyperlipidemia, unspecified; L40.9 Psoriasis, unspecified; Z79.899 Other long term (current) drug therapy; Z87.891 Personal history of nicotine dependence; Z88.5 Allergy status to narcotic agent; Z88.8 Allergy status to other drugs, medicaments and biological substances ==

== ENCOUNTER 2023-01-19 09:33 | Emergency (ER) | payer MEDICARE ==
[~2023-01-19] VITALS: Ht 157.5 cm; Wt 56.8 kg
[2023-01-19 09:43] VITALS: BP 180/98
== END 2023-01-19 13:47 | disposition home or self-care (01) ==
LOC: EDBD 09:33 → M ED 11:39
DX: S92.515A Nondisplaced fracture of proximal phalanx of left lesser toe(s), initial encounter for closed fracture (principal); X58.XXXA Exposure to other specified factors, initial encounter; Y92.89 Other specified places as the place of occurrence of the external cause; Y93.89 Activity, other specified; Y99.8 Other external cause status; Z88.6 Allergy status to analgesic agent; Z88.8 Allergy status to other drugs, medicaments and biological substances; Z79.899 Other long term (current) drug therapy

== ENCOUNTER 2024-01-22 07:20 | Day surgery (SDC) | payer OTHER ==
[~2024-01-22] VITALS: Ht 157.5 cm; Wt 54.4 kg
[~2024-01-22 07:20] MED LIST changes: +ATOR1TAB21 PO; +ATROPINE SULFATE 1% OPHTH SOLN 2ML BTL OS SCH; +IBUP-1022 PO; +PHENYLEPHRINE 10% OPHTH SOL 5ML OS PRN; +PHENYLEPHRINE 2.5% OPHTH SOL 2ML OS SCH; +TROPICAMIDE 1% OPHTH SOLN 15ML OS SCH
[2024-01-22] MEDS: LIDOCAINE 3.5 % 1ML OPHTH TOPICAL GEL OU ONE (07:50)
[2024-01-22] MEDS: OFLOXACIN 0.3 % (OCUFLOX) OPTH SOL 5ML OS ONE (07:50)
[2024-01-22] MEDS ORDERED: fentaNYL 100 MCG/2 ML INJECTION As Ordered ONE (07:58)
[2024-01-22] MEDS ORDERED: MIDAZOLAM INJ 2MG/2ML VIAL As Ordered ONE (07:58)
[2024-01-22] MEDS: LIDOCAINE 1% SDV 5ML VIAL As Ordered ONE (10:02)
[2024-01-22] MEDS: BSS IRRIG/VANCO(10MG)/TOBRA(5MG)/EPINEPH(1:1000-0.5CC)500ML BAG-ORONLY As Ordered ONE (10:02)
[2024-01-22] MEDS: CEFUROXIME 1MG/0.1ML INTRACAMERAL INJ As Ordered ONE (10:02)
[2024-01-22] MEDS: CARBACHOL 0.01% OPHTH SOLN 1.5ML VIAL As Ordered ONE (10:10)
[2024-01-22] MEDS: TRIAMCINOLONE ACETONIDE SUSP 40MG/ML 1ML VIAL As Ordered ONE (10:10)
[2024-01-22 10:22] VITALS: BP 169/77; TEMP 97.4; O2SAT 98
== END 2024-01-22 10:40 | disposition home or self-care (01) ==
LOC: M SDC 07:20
PROVIDERS: ATTEND Ophthalmology
DX: H25.12 Age-related nuclear cataract, left eye (principal); I10 Essential (primary) hypertension; I25.10 Atherosclerotic heart disease of native coronary artery without angina pectoris; J44.9 Chronic obstructive pulmonary disease, unspecified; I71.40 Abdominal aortic aneurysm, without rupture, unspecified; Z90.49 Acquired absence of other specified parts of digestive tract; Z86.73 Personal history of transient ischemic attack (TIA), and cerebral infarction without residual deficits; Z86.711 Personal history of pulmonary embolism; Z79.899 Other long term (current) drug therapy; Z88.5 Allergy status to narcotic agent; Z88.8 Allergy status to other drugs, medicaments and biological substances; Z88.0 Allergy status to penicillin; Z87.891 Personal history of nicotine dependence
CPT/HCPCS: 66984; 92015; J0697; J2250; J3010; J3301; V2788

== ENCOUNTER → 2024-03-24 | Outpatient (REF) | payer OTHER ==
[~2024-03-24] MED LIST changes: -ATROPINE SULFATE 1% OPHTH SOLN 2ML BTL OS SCH; -PHENYLEPHRINE 10% OPHTH SOL 5ML OS PRN; -PHENYLEPHRINE 2.5% OPHTH SOL 2ML OS SCH; -TROPICAMIDE 1% OPHTH SOLN 15ML OS SCH
[2024-03-24 17:46] LABS: BASO % 0.5 % (0.0-1.0); EOS # 0.2 10^3/uL (0.0-0.5); EOS % 3.6 % (0.0-3.0); HEMATOCRIT 42.6 % (36.0-47.0); HEMOGLOBIN 12.5 g/dl (12.0-15.5); LYMPH # 1.2 10^3/uL (1.5-5.0); LYMPH % 18.2 % (24.0-44.0); MEAN CORPUSCULAR HEMOGLOBIN 24.1 pg (27.0-33.0); MEAN CORPUSCULAR HGB CONC 29.3 g/dl (32.0-36.5); MEAN CORPUSCULAR VOLUME 82.2 fl (80.0-96.0); MONO # 0.5 10^3/uL (0.0-0.8); MONO % 8.1 % (2.0-8.0); NEUTROPHILS # 4.5 10^3/uL (1.5-8.5); NEUTROPHILS % 69.3 % (36.0-66.0); PLATELET COUNT, AUTOMATED 250 10^3/uL (150-450); RED BLOOD COUNT 5.18 10^6/uL (4.00-5.40); WHITE BLOOD COUNT 6.4 10^3/uL (4.0-10.0)
[2024-03-24 17:53] LABS: ERYTHROCYTE SEDIMENTATION RATE 110 mm/hr (0-30)
[2024-03-24 18:10] LABS: ALBUMIN 3.1 G/DL (3.2-5.2); ALKALINE PHOSPHATASE 141 U/L (46-116); ALT/SGPT 16 U/L (7.0-40); AST/SGOT 21 U/L (<34); BILIRUBIN,TOTAL 0.4 MG/DL (0.3-1.2); BLOOD UREA NITROGEN 23 MG/DL (9-23); CARBON DIOXIDE LEVEL 25 MMOL/L (20-31); CHLORIDE LEVEL 111 MMOL/L (98-107); CREATININE FOR GFR 0.79 MG/DL (0.55-1.30); GLOMERULAR FILTRATION RATE > 60.0 (>39); GLUCOSE, FASTING 72 MG/DL (74-106); POTASSIUM SERUM 4.5 MMOL/L (3.5-5.1); SODIUM LEVEL 143 MMOL/L (136-145); TOTAL PROTEIN 7.2 G/DL (5.7-8.2)
== END ==
LOC: M SFHCRHEU 15:14
PROVIDERS: ATTEND Internal Medicine Rheumatology
DX: M05.79 Rheumatoid arthritis with rheumatoid factor of multiple sites without organ or systems involvement (principal); H04.129 Dry eye syndrome of unspecified lacrimal gland; L40.8 Other psoriasis; L73.2 Hidradenitis suppurativa; R19.7 Diarrhea, unspecified; Z79.899 Other long term (current) drug therapy; R74.8 Abnormal levels of other serum enzymes

== ENCOUNTER → 2024-05-13 | Outpatient (REF) | payer OTHER | LOC: M SFHCRHEU 14:09 | PROVIDERS: ATTEND Internal Medicine Rheumatology | DX: M05.79 Rheumatoid arthritis with rheumatoid factor of multiple sites without organ or systems involvement (principal) ==